=== PATIENT | male | born 1945 | race Caucasian/White ===

== ENCOUNTER 2016-05-05 16:14 | Inpatient (IN) | payer MEDICARE, BC ==
[2016-05-05] MEDS ORDERED: SODIUM CHLORIDE 0.9% 1,000 ML IV STA (16:55)
--- NOTE | 2016-05-05 16:58 | ED ---
Arrhythmia/Palpitations HPI - General Chief Complaint: Arrhythmia/Palpitations Stated Complaint: Bradycardia Time Seen by Provider: 05/05/16 16:45 Source: patient, family, RN notes reviewed Mode of arrival: wheelchair Limitations: no limitations - History of Present Illness Initial Comments: This is a 71-year-old male who was sent in by his physician for evaluation for a low heart rate. Has had this for over a week he did have metoprolol adjusted he still not getting improvement heart rates or runny near 40 per family members. Patient denies any other symptoms however surges fevers chills nausea vomiting sweats lightheadedness or dizziness. Other than the change in the metoprolol no other change in medications. - Related Data Home Medications Medication Instructions Recorded Confirmed Baclofen 10 mg PO HS 04/26/14 05/05/16 Isosorbide Mononitrate ER [Imdur] 30 mg PO DAILY 04/26/14 05/05/16 Montelukast [Singulair] 10 mg PO DAILY 04/26/14 05/05/16 levETIRAcetam [Keppra] 750 mg PO BID 04/26/14 05/05/16 Atorvastatin [Lipitor] 40 mg PO HS 06/14/14 05/05/16 Melatonin 6 mg PO HS 12/12/14 05/05/16 ALPRAZolam [Xanax] 0.25 mg PO HS 11/20/15 05/05/16 Acetaminophen Tab [Tylenol] 325 mg PO Q6HR PRN 11/20/15 05/05/16 HYDROcodone/APAP 10-325MG [[place] 1 - 2 tab PO Q6H PRN 04/18/16 05/05/16 10-325] Lisinopril [Zestril] 20 mg PO DAILY 04/18/16 05/05/16 Multivitamins, Thera [Multivitamin] 1 tab PO DAILY 04/18/16 05/05/16 Omeprazole [PriLOSEC] 20 mg PO DAILY 04/18/16 05/05/16 PARoxetine HCL [Paxil] 40 mg PO DAILY 04/18/16 05/05/16 Warfarin [Coumadin] 7.5 mg PO DAILY 04/18/16 05/05/16 amLODIPine [Norvasc] 5 mg PO DAILY 04/18/16 05/05/16 hydrALAZINE HCL [Apresoline] 50 mg PO TID 04/18/16 05/05/16 Potassium Chloride ER [K-Dur 20] 20 meq PO DAILY 05/05/16 05/05/16 Previous Rx's Medication Instructions Recorded Furosemide [Lasix] 40 mg PO BID tab 12/23/14 Metoprolol Tartrate 12.5 mg PO BID #60 tab 12/23/14 Tamsulosin HCl [Flomax] 0.4 mg PO BID #0 12/24/14 INSULIN LISPRO (humaLOG) [humaLOG 4 unit SQ AC-TID #5 pen 11/26/15 (formulary)] Insulin Glargine [Lantus] 18 unit SQ HS vial 11/26/15 Allergies Allergy/AdvReac Type Severity Reaction Status Date / Time adhesive AdvReac Unknown Verified 05/05/16 16:35 influenza virus vaccine, AdvReac Nausea & Verified 05/05/16 16:35 specific Vomiting & [Influenza Virus Diarrhea Vacc,Specific] Review of Systems ROS Statement: Those systems with pertinent positive or pertinent negative responses have been documented in the HPI. ROS Other: All systems not noted in ROS Statement are negative. Past Medical History Past Medical History: Atrial Fibrillation, Coronary Artery Disease (CAD), Heart Failure, COPD, Diabetes Mellitus, GERD/Reflux, Hyperlipidemia, Hypertension, Myocardial Infarction (non Q-wave), Musculoskeletal Disorder, Osteoarthritis (OA ), Pneumonia, Prostate Disorder, Seizure Disorder, Sleep Apnea/CPAP/BIPAP Additional Past Medical History / Comment(s): Other HX: Recent near respiratory failure, TIA possible CVA pt us unsure, Chronic UTI'S due to VALVE IN BLADDER TOO SMALL, START OF CATARACTS bilaterally,ARTHRITIS, GOUT,DOES'NT USE CPAP AT. HOME,KIDNEY STONE, BULGING DISCS. home o2 3l nc at all times , he has home updrafts, pneumonia 11/2013, non Q wave [place] 11/2013, arthiritis .WT ON 08-16-14 WAS 87.8 KGS -AND ON 09-11-14 WT WAS 65.5 KGS. Last Myocardial Infarction Date:: UNK History of Any Multi-Drug Resistant Organisms: C-DIFF Date of last positivie culture/infection: None MDRO Source:: None Past Surgical History: Bladder Surgery, Coronary Bypass/CABG, Heart Catheterization Additional Past Surgical History / Comment(s): Cardiac cath with PTCA 12/14/13, CABG 5 vessek 01/02/14, BENIGN TUMOR ON SALIVARY GLANDS (RT) REMOVED, HAD A SUPRA PUBIC CATH IN PAST THAT GOT INFECTED ENDED UP AT [facility]. Past Anesthesia/Blood Transfusion Reactions: No Reported Reaction Past Psychological History: Depression Additional Psychological History / Comment(s): Pt lives alone denies outside services.stated left him around mar 2014. He is on home O2 at 3L/NC all of the time. Pt is independent in his ADL's. He uses a cane most of the time. He cooks his. own food. . Pt has had home care in the past but none now. He also has friends that help him and family calls to check on him as well. Twin has been helping him. Smoking Status: Former smoker Past Alcohol Use History: None Reported Additional Past Alcohol Use History / Comment(s): STARTED SMOKING AT AGE 19 QUIT 2012 3PPD FOR 10 YEARS THEN DECREASED TO 2 PPD UNTIL HE QUIT. 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, Past Drug Use History: None Reported - Past Family History Father Family Medical History: Cancer, Dementia, Hyperlipidemia, Hypertension, Myocardial Infarction ([place]) Additional Family Medical History / Comment(s): AT AGE 78- Mother Family Medical History: Coronary Artery Disease (CAD), Dementia, Myocardial Infarction ([place]) Additional Family Medical History / Comment(s): AT AGE 86 Brother(s) Family Medical History: No Reported History Sister(s) Family Medical History: Rheumatoid Arthritis (RA) Son(s) Family Medical History: No Reported History Daughter(s) Family Medical History: No Reported History General Exam - General Exam Comments Initial Comments: This is a well-developed well-nourished awake alert oriented 3 male Limitations: no limitations General appearance: alert, in no apparent distress Head exam: Present: atraumatic, normocephalic, normal inspection Eye exam: Present: normal appearance, PERRL, EOMI. Absent: scleral icterus, conjunctival injection, periorbital swelling ENT exam: Present: mucous membranes dry Neck exam: Present: normal inspection. Absent: tenderness, meningismus, lymphadenopathy Respiratory exam: Present: normal lung sounds bilaterally. Absent: respiratory distress, wheezes, rales, rhonchi, stridor Cardiovascular Exam: Present: bradycardia, irregular rhythm, normal heart sounds. Absent: systolic murmur, diastolic murmur, rubs, gallop, clicks GI/Abdominal exam: Present: soft, normal bowel sounds. Absent: distended, tenderness, guarding, rebound, rigid Extremities exam: Present: normal inspection, full ROM, normal capillary refill. Absent: tenderness, pedal edema, joint swelling, calf tenderness Back exam: Present: normal inspection Neurological exam: Present: alert, oriented X3, CN II-XII intact Psychiatric exam: Present: normal affect, normal mood Skin exam: Present: warm, dry, intact, normal color. Absent: rash Course Vital Signs 05/05/16 05/05/16 05/05/16 16:24 17:20 18:00 Temperature 98.2 F Pulse Rate 40 L 46 L 44 L Pulse Rate [ Left Pulse Oximetery] Respiratory 16 16 16 Rate Blood Pressure 175/80 190/77 208/89 O2 Sat by Pulse 98 97 44 L Oximetry 05/05/16 05/05/16 05/05/16 18:30 19:30 19:57 Temperature Pulse Rate 43 L 52 L Pulse Rate [ 46 L Left Pulse Oximetery] Respiratory 16 16 Rate Blood Pressure 187/88 182/83 O2 Sat by Pulse 97 97 Oximetry EKG Findings - EKG Results: EKG: interpreted by REED (Atrial fibrillation with a rate of 39 uterus of 110 daily since QTC of 506/407 old inferior changes no acute ST-T wave changes.) Medical Decision Making - Medical Decision Making I did discuss findings with patient family and with the admitting physician patient be admitted with cardiology consultation. He is currently hemodynamically stable - Lab Data Result diagrams: 05/05/16 17:20 05/05/16 17:20 Lab Results 05/05/16 05/05/16 05/05/16 Range/Units 17:20 17:20 17:20 WBC 8.5 (3.8-10.6) k/uL RBC 4.65 (4.30-5.90) m/uL Hgb 13.4 (13.0-17.5) gm/dL Hct 41.2 (39.0-53.0) % MCV 88.7 (80.0-100.0) fL MCH 28.8 (25.0-35.0) pg MCHC 32.5 (31.0-37.0) g/dL RDW 13.3 (11.5-15.5) % Plt Count 145 L (150-450) k/uL Neutrophils % 69 % Lymphocytes % 19 % Monocytes % 7 % Eosinophils % 3 % Basophils % 1 % Neutrophils # 5.9 (1.3-7.7) k/uL Lymphocytes # 1.6 (1.0-4.8) k/uL Monocytes # 0.6 (0-1.0) k/uL Eosinophils # 0.3 (0-0.7) k/uL Basophils # 0.1 (0-0.2) k/uL PT (9.0-12.0) sec INR (<1.1) APTT (22.0-30.0) sec Sodium 140 (137-145) mmol/L Potassium 4.3 (3.5-5.1) mmol/L Chloride 101 (98-107) mmol/L Carbon Dioxide 29 (22-30) mmol/L Anion Gap 10 mmol/L BUN 23 H (9-20) mg/dL Creatinine 1.18 (0.66-1.25) mg/dL Est GFR (MDRD) Af Amer >60 (>60 ml/min/1.73 sqM) Est GFR (MDRD) Non-Af >60 (>60 ml/min/1.73 sqM) Glucose 257 H (74-99) mg/dL Calcium 8.9 (8.4-10.2) mg/dL Magnesium 1.7 (1.6-2.3) mg/dL Total Bilirubin 0.6 (0.2-1.3) mg/dL AST 30 (17-59) U/L ALT 53 (21-72) U/L Alkaline Phosphatase 82 (38-126) U/L Total Creatine Kinase 55 (55-170) U/L CK-MB (CK-2) 1.3 (0.0-2.4) ng/mL CK-MB (CK-2) Rel Index 2.4 Troponin I 0.021 (0.000-0.034) ng/mL Total Protein 6.7 (6.3-8.2) g/dL Albumin 3.6 (3.5-5.0) g/dL TSH 1.060 (0.465-4.680) mIU/L 05/05/16 Range/Units 17:20 WBC (3.8-10.6) k/uL RBC (4.30-5.90) m/uL Hgb (13.0-17.5) gm/dL Hct (39.0-53.0) % MCV (80.0-100.0) fL MCH (25.0-35.0) pg MCHC (31.0-37.0) g/dL RDW (11.5-15.5) % Plt Count (150-450) k/uL Neutrophils % % Lymphocytes % % Monocytes % % Eosinophils % % Basophils % % Neutrophils # (1.3-7.7) k/uL Lymphocytes # (1.0-4.8) k/uL Monocytes # (0-1.0) k/uL Eosinophils # (0-0.7) k/uL Basophils # (0-0.2) k/uL PT 36.0 H (9.0-12.0) sec INR 3.7 (<1.1) APTT 31.1 H (22.0-30.0) sec Sodium (137-145) mmol/L Potassium (3.5-5.1) mmol/L Chloride (98-107) mmol/L Carbon Dioxide (22-30) mmol/L Anion Gap mmol/L BUN (9-20) mg/dL Creatinine (0.66-1.25) mg/dL Est GFR (MDRD) Af Amer (>60 ml/min/1.73 sqM) Est GFR (MDRD) Non-Af (>60 ml/min/1.73 sqM) Glucose (74-99) mg/dL Calcium (8.4-10.2) mg/dL Magnesium (1.6-2.3) mg/dL Total Bilirubin (0.2-1.3) mg/dL AST (17-59) U/L ALT (21-72) U/L Alkaline Phosphatase (38-126) U/L Total Creatine Kinase (55-170) U/L CK-MB (CK-2) (0.0-2.4) ng/mL CK-MB (CK-2) Rel Index Troponin I (0.000-0.034) ng/mL Total Protein (6.3-8.2) g/dL Albumin (3.5-5.0) g/dL TSH (0.465-4.680) mIU/L - Radiology Data Radiology results: report reviewed (No acute findings), image reviewed Disposition Clinical Impression: Chronic atrial fibrillation, Bradycardia with 31-40 beats per minute Disposition: ADMITTED IP TO THIS HOSP Condition: Stable
[2016-05-05 17:34] LABS: Basophils # (A) 0.1 k/uL (0-0.2); Basophils % (A) 1 %; CH 29.2; Eosinophils # (A) 0.3 k/uL (0-0.7); Eosinophils % (A) 3 %; HCT 41.2 % (39.0-53.0); HDW 2.49; HGB 13.4 gm/dL (13.0-17.5); Luc # (Auto) 0.14; Luc % (Auto) 2; Lymphocytes # (A) 1.6 k/uL (1.0-4.8); Lymphocytes % (A) 19 %; MCH 28.8 pg (25.0-35.0); MCHC 32.5 g/dL (31.0-37.0); MCV 88.7 fL (80.0-100.0); Mean Platelet Volume 8.7; Monocytes # (A) 0.6 k/uL (0-1.0); Monocytes % (A) 7 %; Neutrophils # (A) 5.9 k/uL (1.3-7.7); Neutrophils % (A) 69 %; RBC 4.65 m/uL (4.30-5.90); RDW 13.3 % (11.5-15.5); WBC 8.5 k/uL (3.8-10.6); WBC (Perox) 8.68
[2016-05-05 17:42] LABS: INR 3.7 (<1.1); Partial Thromboplastin Time 31.1 sec (22.0-30.0)
[2016-05-05 17:43] LABS: ALT 53 U/L (21-72); AST 30 U/L (17-59); Alkaline Phosphatase 82 U/L (38-126); Anion Gap 10 mmol/L; Blood Urea Nitrogen 23 mg/dL (9-20); Calcium 8.9 mg/dL (8.4-10.2); Carbon Dioxide 29 mmol/L (22-30); Chloride 101 mmol/L (98-107); Glucose 257 mg/dL (74-99); Magnesium 1.7 mg/dL (1.6-2.3); Non-African American GFR(MDRD) >60 (>60 ml/min/1.73 sqM); Potassium 4.3 mmol/L (3.5-5.1); Sodium 140 mmol/L (137-145); Total Bilirubin 0.6 mg/dL (0.2-1.3); Total Protein 6.7 g/dL (6.3-8.2)
[2016-05-05 18:06] LABS: Creatine Kinase MB 1.3 ng/mL (0.0-2.4); Troponin I 0.021 ng/mL (0.000-0.034)
--- NOTE | 2016-05-05 18:22 | XR ---
EXAMINATION TYPE: XR chest 2V DATE OF EXAM: 05/05/2016 6:06 PM COMPARISON: Prior chest x-ray 17 April 2016, November, CT chest 13 December 2014 HISTORY: Dysrhythmia, bradycardia TECHNIQUE: Frontal and lateral views of the chest are obtained. FINDINGS: Patient is post median sternotomy. Patient is rotated and there are overlying cardiac lead s. Suspect the heart may be enlarged. Increased AP diameter of the chest suggests underlying COPD. Zavala spect posterior pleural thickening is chronic. No pneumonia, pneumothorax, or pleural effusion. IMPRESSION: Chronic cardiomegaly. Emphysema. There may be some chronic pleural thickening.
[2016-05-05] MEDS ORDERED: NALOXONE 0.4 MG/ML 1 ML VIAL IV PRN (20:33)
[2016-05-05] MEDS ORDERED: ACETAMINOPHEN TAB 325 MG TAB PO PRN (20:37)
[2016-05-05] MEDS ORDERED: HYDROcodone/APAP 10-325MG 1 EACH TAB PO PRN (20:37)
[2016-05-05 22:00] LABS: Glucose,Whole Blood 239 mg/dL (75-99)
[2016-05-05] MEDS: SODIUM CHLORIDE 0.9% 1,000 ML IV SCH (22:47)
[2016-05-05] MEDS: BACLOFEN 10 MG TAB PO SCH (22:48)
[2016-05-05] MEDS: ATORVASTATIN 40 MG TAB PO SCH (22:48)
[2016-05-05] MEDS: INSULIN GLARGINE 100 UNIT/ML 10 ML VIAL SQ SCH (22:48)
[2016-05-05] MEDS: hydrALAZINE HCL 50 MG TAB PO SCH (22:49)
[2016-05-05] MEDS: FUROSEMIDE 40 MG TAB PO SCH (22:49)
[2016-05-05] MEDS: TAMSULOSIN 0.4 MG CAP.ER.24H PO SCH (22:49)
[2016-05-05] MEDS: ALPRAZolam 0.25 MG TAB PO SCH (22:54)
[2016-05-06] MEDS ORDERED: hydrALAZINE HCL 20 MG/ML 1 ML VIAL IVP PRN (03:25)
[2016-05-06 06:06] LABS: Glucose,Whole Blood 119 mg/dL (75-99)
[2016-05-06] MEDS: INSULIN LISPRO (humaLOG) 300 UNIT/3 ML VIAL SQ SCH ×3 (06:09→17:07)
--- NOTE | 2016-05-06 08:37 | P.CRDCN ---
History of Present Illness Consult date: 05/06/16 Requesting physician: Janet Blackman Reason for Consult (text): Bradycardia Chief complaint: Bradycardia History of present illness: This is a 70-year-old gentleman with known history of coronary artery disease and prior bypass surgery, chronic persistent atrial fibrillation, COPD, prior CVA, remote history of smoking, diabetes, hypertension, hyperlipidemia, he states that he came to the hospital because his heart rate was low. Overall the patient states he's been feeling punky and weak at home, he denies any overt dizziness, no syncopal episodes. EKG on arrival here showed atrial fibrillation with a slow ventricular response. Heart rate 39. Chest x-ray reveals chronic cardiomegaly. Emphysema. Lab data hemoglobin 13.4, platelet count 145, INR 3.7, potassium 4.3, BUN 23, creatinine 1.8. A mesial level I.7, troponin 0.021. TSH 1.060. Patient is unable to give a clear detailed history. According to the emergency room notes, patient has been noted to be bradycardic over the past one week, he did have his metoprolol tartrate dose adjusted and in spite of that persisted to have a heart rate in the 30s to 40s. He currently was on metoprolol tartrate 12-1/2 mg one tablet by mouth twice a day. The pressure on admission 175/80, heart rate 40. Blood pressure this morning 194/84 with a heart rate of 34. At the time of my examination this morning, patient states he feels punky, denies any dizziness or lightheadedness , feels tired. Past Medical History Past Medical History: Atrial Fibrillation, Coronary Artery Disease (CAD), Heart Failure, COPD, Diabetes Mellitus, GERD/Reflux, Hyperlipidemia, Hypertension, Myocardial Infarction (non Q-wave), Musculoskeletal Disorder, Osteoarthritis (OA ), Pneumonia, Prostate Disorder, Seizure Disorder, Sleep Apnea/CPAP/BIPAP Additional Past Medical History / Comment(s): Other HX: Recent near respiratory failure, TIA possible CVA pt us unsure, Chronic UTI'S due to VALVE IN BLADDER TOO SMALL, START OF CATARACTS bilaterally,ARTHRITIS, GOUT,DOES'NT USE CPAP AT. HOME,KIDNEY STONE, BULGING DISCS. home o2 3l nc at all times , he has home updrafts, pneumonia 11/2013, non Q wave [place] 11/2013, arthiritis .WT ON 08-16-14 WAS 87.8 KGS -AND ON 09-11-14 WT WAS 65.5 KGS. Last Myocardial Infarction Date:: UNK History of Any Multi-Drug Resistant Organisms: C-DIFF Date of last positivie culture/infection: None MDRO Source:: None Past Surgical History: Bladder Surgery, Coronary Bypass/CABG, Heart Catheterization Additional Past Surgical History / Comment(s): Cardiac cath with PTCA 12/14/13, CABG 5 vessek 01/02/14, BENIGN TUMOR ON SALIVARY GLANDS (RT) REMOVED, HAD A SUPRA PUBIC CATH IN PAST THAT GOT INFECTED ENDED UP AT [facility]. Past Anesthesia/Blood Transfusion Reactions: No Reported Reaction Past Psychological History: Depression Additional Psychological History / Comment(s): Pt lives alone denies outside services.stated left him around mar 2014. He is on home O2 at 3L/NC all of the time. Pt is independent in his ADL's. He uses a cane most of the time. He cooks his. own food. . Pt has had home care in the past but none now. He also has friends that help him and family calls to check on him as well. Twin has been helping him. Smoking Status: Former smoker Past Alcohol Use History: None Reported Additional Past Alcohol Use History / Comment(s): STARTED SMOKING AT AGE 19 QUIT 2012 3PPD FOR 10 YEARS THEN DECREASED TO 2 PPD UNTIL HE QUIT. 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, Past Drug Use History: None Reported - Past Family History Father Family Medical History: Cancer, Dementia, Hyperlipidemia, Hypertension, Myocardial Infarction ([place]) Additional Family Medical History / Comment(s): AT AGE 78- Mother Family Medical History: Coronary Artery Disease (CAD), Dementia, Myocardial Infarction ([place]) Additional Family Medical History / Comment(s): AT AGE 86 Brother(s) Family Medical History: No Reported History Sister(s) Family Medical History: Rheumatoid Arthritis (RA) Son(s) Family Medical History: No Reported History Daughter(s) Family Medical History: No Reported History Medications and Allergies Home Medications Medication Instructions Recorded Confirmed Type Baclofen 10 mg PO HS 04/26/14 05/05/16 History Isosorbide Mononitrate ER [Imdur] 30 mg PO DAILY 04/26/14 05/05/16 History Montelukast [Singulair] 10 mg PO DAILY 04/26/14 05/05/16 History levETIRAcetam [Keppra] 750 mg PO BID 04/26/14 05/05/16 History Atorvastatin [Lipitor] 40 mg PO HS 06/14/14 05/05/16 History Melatonin 6 mg PO HS 12/12/14 05/05/16 History ALPRAZolam [Xanax] 0.25 mg PO HS 11/20/15 05/05/16 History Acetaminophen Tab [Tylenol] 325 mg PO Q6HR PRN 11/20/15 05/05/16 History HYDROcodone/APAP 10-325MG [[place] 1 - 2 tab PO Q6H PRN 04/18/16 05/05/16 History 10-325] Lisinopril [Zestril] 20 mg PO DAILY 04/18/16 05/05/16 History Multivitamins, Thera [Multivitamin] 1 tab PO DAILY 04/18/16 05/05/16 History Omeprazole [PriLOSEC] 20 mg PO DAILY 04/18/16 05/05/16 History PARoxetine HCL [Paxil] 40 mg PO DAILY 04/18/16 05/05/16 History Warfarin [Coumadin] 7.5 mg PO DAILY 04/18/16 05/05/16 History amLODIPine [Norvasc] 5 mg PO DAILY 04/18/16 05/05/16 History hydrALAZINE HCL [Apresoline] 50 mg PO TID 04/18/16 05/05/16 History Potassium Chloride ER [K-Dur 20] 20 meq PO DAILY 05/05/16 05/05/16 History Allergies Allergy/AdvReac Type Severity Reaction Status Date / Time adhesive AdvReac Unknown Verified 05/05/16 16:35 influenza virus vaccine, AdvReac Nausea & Verified 05/05/16 16:35 specific Vomiting & [Influenza Virus Diarrhea Vacc,Specific] Physical Exam Vitals: Vital Signs Temp Pulse Resp BP Pulse Ox 05/06/16 06:05 34 L 194/84 05/06/16 04:53 37 L 191/88 05/06/16 04:45 35 L 216/95 05/06/16 04:40 37 L 201/97 05/06/16 03:42 97.9 F 36 L 16 197/87 99 05/06/16 00:28 187/88 05/05/16 23:42 98.1 F 44 L 16 196/97 97 05/05/16 20:58 97.6 F 46 L 16 190/84 95 Intake and Output 05/05/16 05/06/16 05/06/16 22:59 06:59 14:59 Intake Total 120 640 0 Output Total 1000 400 Balance 120 -360 -400 Intake: IV 640 Sodium Chloride 0.9% 1, 640 000 ml @ 80 mls/hr IV . [id number] [facility]MA ROSA Rx#:[id number] Oral 120 0 Output: Urine 1000 400 Other: Voiding Method Urinal Weight 65.771 kg 63.4 kg PHYSICAL EXAMINATION: HEENT: Head is atraumatic, normocephalic. Pupils equal, round. Neck is supple. There is no elevated jugular venous pressure. HEART EXAMINATION: Heart S1-S2 irregular irregular a systolic murmur is heard. CHEST EXAMINATION: Lungs are clear to auscultation and precussion. No chest wall tenderness is noted on palpation or with deep breathing. ABDOMEN: Soft, nontender. Bowel sounds are heard. No organomegaly noted. EXTREMITIES: 2+ peripheral pulses with no evidence of peripheral edema and no calf tenderness noted. NEUROLOGIC patient is awake, alert and oriented -3. . Results 05/05/16 17:20 05/05/16 17:20 Current Medications Generic Name Dose Route Start Last Admin Trade Name Freq PRN Reason Stop Dose Admin Acetaminophen 325 mg 05/05/16 20:37 05/06/16 00:19 Tylenol Tab PO 325 mg Q6HR PRN Administration Mild Pain or Fever > 100.5 Acetaminophen/Hydrocodone Bitart 1 each 05/05/16 20:37 [place] 10 PO Q6H PRN Pain Alprazolam 0.25 mg 05/05/16 21:00 05/05/16 22:54 Xanax PO 0.25 mg HS ALMA ROSA Administration Amlodipine Besylate 5 mg 05/06/16 09:00 Norvasc PO DAILY ALMA ROSA Atorvastatin Calcium 40 mg 05/05/16 21:00 05/05/16 22:48 Lipitor PO 40 mg HS ALMA ROSA Administration Baclofen 10 mg 05/05/16 21:00 05/05/16 22:48 Lioresal PO 10 mg HS ALMA ROSA Administration Furosemide 40 mg 05/05/16 22:00 05/05/16 22:49 Lasix PO 40 mg 0900,1600 ALMA ROSA Administration Hydralazine HCl 50 mg 05/05/16 22:00 05/05/16 22:49 Apresoline PO 50 mg TID ALMA ROSA Administration Hydralazine HCl 10 mg 05/06/16 03:25 05/06/16 04:36 Apresoline IVP 10 mg Q4HR PRN Administration Blood Pressure - High Sodium Chloride 1,000 mls @ 80 mls/hr 05/05/16 20:45 05/05/16 22:47 Saline 0.9% IV 80 mls/hr .[id number] [facility]MA ROSA Administration Insulin Glargine 18 unit 05/05/16 21:00 05/05/16 22:48 Lantus SQ 18 unit HS [facility]MA ROSA Administration Insulin Human Lispro 4 unit 05/06/16 07:30 05/06/16 06:09 Humalog SQ Not Given AC-TID [facility] Isosorbide Mononitrate 30 mg 05/06/16 09:00 Imdur PO DAILY [facility] Levetiracetam 750 mg 05/05/16 21:00 05/05/16 22:49 Keppra PO 750 mg BID [facility] ROSA Administration Lisinopril 20 mg 05/06/16 09:00 Zestril PO DAILY [facility] Montelukast Sodium 10 mg 05/06/16 09:00 Singulair PO DAILY [facility] Naloxone HCl 0.2 mg 05/05/16 20:33 Narcan IV Q2M PRN Opioid Reversal Pantoprazole Sodium 40 mg 05/06/16 09:00 Protonix PO DAILY [facility] Paroxetine HCl 40 mg 05/06/16 09:00 Paxil PO DAILY [facility] Tamsulosin HCl 0.4 mg 05/05/16 21:00 05/05/16 22:49 Flomax PO 0.4 mg BID [facility] Administration Intake and Output 05/05/16 05/06/16 05/06/16 22:59 06:59 14:59 Intake Total 120 640 0 Output Total 1000 400 Balance 120 -360 -400 Intake: IV 640 Sodium Chloride 0.9% 1, 640 000 ml @ 80 mls/hr IV . [id number] [facility] Rx#:[id number] Oral 120 0 Output: Urine 1000 400 Other: Voiding Method Urinal Weight 65.771 kg 63.4 kg EKG Interpretations (text) EKG shows atrial fibrillation with a slow ventricular response. Assessment and Plan Plan: Assessment and plan #1 bradycardia with symptoms of fatigue and weakness. TSH normal. #2 chronic persistent atrial fibrillation, on Coumadin for anticoagulation, INR 3.7. #3 known history of coronary artery disease with prior bypass surgery. #4 hypertension # 5 diabetes #6 prior CVA #7 COPD #8 history of nicotine dependence #9 diabetes Plan We will obtain an echocardiogram with Doppler study. We will also hold the patient's metoprolol tartrate. It is been explained to the patient that he may require implantation of a permanent pacemaker at some point. We will await family members arrivals to speak with him further. We will hold his Coumadin dose today. Increase Norvasc to 10 mg daily. Further recommendations to follow. DNP note has been reviewed, I agree with a documented findings and plan of care. Patient was seen and examined.
[2016-05-06] MEDS ORDERED: amLODIPine 5 MG TAB PO SCH (09:00)
[2016-05-06] MEDS: hydrALAZINE HCL 50 MG TAB PO SCH ×3 (09:20→21:06)
[2016-05-06] MEDS: amLODIPine 10 MG TAB PO SCH (09:20)
[2016-05-06] MEDS: MONTELUKAST 10 MG TAB PO SCH (09:21)
[2016-05-06] MEDS: PANTOPRAZOLE 40 MG TABLET PO SCH (09:21)
[2016-05-06] MEDS: ISOSORBIDE MONONITRATE ER 30 MG TAB.ER.24H PO SCH (09:21)
[2016-05-06] MEDS: LISINOPRIL 20 MG TAB PO SCH (09:21)
[2016-05-06] MEDS: FUROSEMIDE 40 MG TAB PO SCH ×2 (09:21→15:26)
[2016-05-06] MEDS: TAMSULOSIN 0.4 MG CAP.ER.24H PO SCH ×2 (09:22→21:06)
[2016-05-06] MEDS: PARoxetine 20 MG TAB PO SCH (09:22)
[2016-05-06 10:08] LABS: INR 2.7 (<1.1); Prothrombin Time 26.4 sec (9.0-12.0)
[2016-05-06] MEDS: SODIUM CHLORIDE 0.9% 1,000 ML IV SCH ×2 (10:43→21:07)
[2016-05-06 11:54] LABS: Glucose,Whole Blood 225 mg/dL (75-99)
--- NOTE | 2016-05-06 12:11 | ECHOF ---
Referral Reason:bradycardia MEASUREMENTS -------- HEIGHT: 175.3 cm WEIGHT: 63.0 kg BP: 194/84 RVIDd: 3.8 cm (< 3.3) IVSd: 1.1 cm (0.6 - 1.1) LVIDd: 4.7 cm (3.9 - 5.3) LVPWd: 1.1 cm (0.6 - 1.1) IVSs: 1.5 cm LVIDs: 3.2 cm LVPWs: 1.6 cm LA Diam: 5.8 cm (2.7 - 3.8) LAESV Index (A-L): 71.87 ml/m Ao Diam: 3.8 cm (2.0 - 3.7) AV Cusp: 2.1 cm (1.5 - 2.6) LA Diam: 4.9 cm (2.7 - 3.8) MV EXCURSION: 20.195 mm (> 18.000) MV EF SLOPE: 96 mm/s (70 - 150) EPSS: 0.5 cm MV E Blayne: 0.83 m/s MV DecT: 172 ms MV A Blayne: 0.28 m/s MV E/A Ratio: 2.91 RAP: 5.00 mmHg RVSP: 16.85 mmHg FINDINGS -------- Undetermined rhythm. This was a technically adequate study. There is mild concentric left ventricular hypertrophy. Overall left ventricular systolic function is low-normal with, an EF between 50 - 55 %. Paradoxical motion of the right ventricular septum is consistent with post operative status. There is mild to moderate aortic valve sclerosis. There is no evidence of aortic regurgitation. The mitral valve leaflets are mildly thickened. Mild mitral regurgitation is present. Mild tricuspid regurgitation present. There is no evidence of pulmonary hypertension. The right ventricular systolic pressure, as measured by Doppler, is 16.85mmHg. There is no pulmonic regurgitation present. The aortic root size is normal. There is no pericardial effusion. CONCLUSIONS -------- 1. Undetermined rhythm. 2. There is mild concentric left ventricular hypertrophy. 3. Overall left ventricular systolic function is low-normal with, an EF between 50 - 55 %. 4. There is mild to moderate aortic valve sclerosis. 5. The mitral valve leaflets are mildly thickened. 6. Mild mitral regurgitation is present. 7. Mild tricuspid regurgitation present. 8. There is no evidence of pulmonary hypertension. 9. The right ventricular systolic pressure, as measured by Doppler, is 16.85mmHg. BUILDING CONTRACTOR: Ramila Calderón RDCS
--- NOTE | 2016-05-06 15:29 | P.HPIM ---
History of Present Illness H&P Date: 05/06/16 Chief Complaint: Bradycardia This is a 70-year-old male one of Dr. Lucas Gallo's patient with past medical history of hypertension, hyperlipidemia, diabetes, COPD, ,CHF , alcoholism and worsening heart failure who had open heart surgery with the CABG 2015 ended up having multiple complications and the multiple rehospitalization for worsening shortness of breath, A. fib and other complication. Patient states that he was having low heart rates at home and his family contacted Dr. Dockery. His metoprolol was decreased without any improvement and he was brought into [facility] emergency center for evaluation. EKG was atrial fibrillation at rate of 39. Beta kojo was discontinued completely and patient admitted to the selective care unit and consult obtained with cardiology. Patient is monitored for possible pacemaker insertion. INR 3.7 and Coumadin placed on hold. BUN 23 with creatinine of 1.8. Potassium 4.3 and magnesium level I.7. Patient has some generalized weakness and lightheadedness. He denies any chest pain. . Review of Systems All systems: negative Constitutional: Reports fatigue, Reports lethargy, Reports weakness, Denies chills, Denies fever Eyes: denies blurred vision, denies pain Ears, nose, mouth and throat: Denies headache, Denies sore throat Cardiovascular: Reports lightheadedness, Denies chest pain, Denies palpitations , Denies shortness of breath, Denies syncope Respiratory: Denies cough Gastrointestinal: Denies abdominal pain, Denies diarrhea, Denies nausea, Denies vomiting Musculoskeletal: Denies myalgias Integumentary: Denies pruritus, Denies rash Neurological: Denies numbness, Denies weakness Psychiatric: Denies anxiety, Denies depression Endocrine: Denies fatigue, Denies weight change Past Medical History Past Medical History: Atrial Fibrillation, Coronary Artery Disease (CAD), Heart Failure, COPD, Diabetes Mellitus, GERD/Reflux, Hyperlipidemia, Hypertension, Myocardial Infarction (non Q-wave), Musculoskeletal Disorder, Osteoarthritis (OA ), Pneumonia, Prostate Disorder, Seizure Disorder, Sleep Apnea/CPAP/BIPAP Additional Past Medical History / Comment(s): Other HX: Recent near respiratory failure, TIA possible CVA pt us unsure, Chronic UTI'S due to VALVE IN BLADDER TOO SMALL, START OF CATARACTS bilaterally,ARTHRITIS, GOUT,DOES'NT USE CPAP AT. HOME,KIDNEY STONE, BULGING DISCS. home o2 3l nc at all times , he has home updrafts, pneumonia 11/2013, non Q wave NM 11/2013, arthiritis .WT ON 08-16-14 WAS 87.8 KGS -AND ON 09-11-14 WT WAS 65.5 KGS. Last Myocardial Infarction Date:: UNK History of Any Multi-Drug Resistant Organisms: C-DIFF Date of last positivie culture/infection: None MDRO Source:: None Past Surgical History: Bladder Surgery, Coronary Bypass/CABG, Heart Catheterization Additional Past Surgical History / Comment(s): Cardiac cath with PTCA 12/14/13, CABG 5 vessek 01/02/14, BENIGN TUMOR ON SALIVARY GLANDS (RT) REMOVED, HAD A SUPRA PUBIC CATH IN PAST THAT GOT INFECTED ENDED UP AT [facility]. Past Anesthesia/Blood Transfusion Reactions: No Reported Reaction Past Psychological History: Depression Additional Psychological History / Comment(s): Pt lives alone denies outside services.stated left him around mar 2014. He is on home O2 at 3L/NC all of the time. Pt is independent in his ADL's. He uses a cane most of the time. He cooks his. own food. . Pt has had home care in the past but none now. He also has friends that help him and family calls to check on him as well. [facility] has been helping him. Smoking Status: Former smoker Past Alcohol Use History: None Reported Additional Past Alcohol Use History / Comment(s): STARTED SMOKING AT AGE 19 QUIT 2012 3PPD FOR 10 YEARS THEN DECREASED TO 2 PPD UNTIL HE QUIT. 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, Past Drug Use History: None Reported - Past Family History Father Family Medical History: Cancer, Dementia, Hyperlipidemia, Hypertension, Myocardial Infarction (NM) Additional Family Medical History / Comment(s): AT AGE 78- Mother Family Medical History: Coronary Artery Disease (CAD), Dementia, Myocardial Infarction (NM) Additional Family Medical History / Comment(s): AT AGE 86 Brother(s) Family Medical History: No Reported History Sister(s) Family Medical History: Rheumatoid Arthritis (RA) Son(s) Family Medical History: No Reported History Daughter(s) Family Medical History: No Reported History Medications and Allergies Home Medications Medication Instructions Recorded Confirmed Type Baclofen 10 mg PO HS 04/26/14 05/05/16 History Isosorbide Mononitrate ER [Imdur] 30 mg PO DAILY 04/26/14 05/05/16 History Montelukast [Singulair] 10 mg PO DAILY 04/26/14 05/05/16 History levETIRAcetam [Keppra] 750 mg PO BID 04/26/14 05/05/16 History Atorvastatin [Lipitor] 40 mg PO HS 06/14/14 05/05/16 History Melatonin 6 mg PO HS 12/12/14 05/05/16 History ALPRAZolam [Xanax] 0.25 mg PO HS 11/20/15 05/05/16 History Acetaminophen Tab [Tylenol] 325 mg PO Q6HR PRN 11/20/15 05/05/16 History HYDROcodone/APAP 10-325MG [[place] 1 - 2 tab PO Q6H PRN 04/18/16 05/05/16 History 10-325] Lisinopril [Zestril] 20 mg PO DAILY 04/18/16 05/05/16 History Multivitamins, Thera [Multivitamin] 1 tab PO DAILY 04/18/16 05/05/16 History Omeprazole [PriLOSEC] 20 mg PO DAILY 04/18/16 05/05/16 History PARoxetine HCL [Paxil] 40 mg PO DAILY 04/18/16 05/05/16 History Warfarin [Coumadin] 7.5 mg PO DAILY 04/18/16 05/05/16 History amLODIPine [Norvasc] 5 mg PO DAILY 04/18/16 05/05/16 History hydrALAZINE HCL [Apresoline] 50 mg PO TID 04/18/16 05/05/16 History Potassium Chloride ER [K-Dur 20] 20 meq PO DAILY 05/05/16 05/05/16 History Allergies Allergy/AdvReac Type Severity Reaction Status Date / Time adhesive AdvReac Unknown Verified 05/05/16 16:35 influenza virus vaccine, AdvReac Nausea & Verified 05/05/16 16:35 specific Vomiting & [Influenza Virus Diarrhea Vacc,Specific] Physical Exam Vitals: Vital Signs Temp Pulse Resp BP Pulse Ox 05/06/16 08:00 97.6 F 44 L 183/88 97 05/06/16 06:05 34 L 194/84 05/06/16 04:53 37 L 191/88 05/06/16 04:45 35 L 216/95 05/06/16 04:40 37 L 201/97 05/06/16 03:42 97.9 F 36 L 16 197/87 99 05/06/16 00:28 187/88 05/05/16 23:42 98.1 F 44 L 16 196/97 97 05/05/16 20:58 97.6 F 46 L 16 190/84 95 Intake and Output 05/05/16 05/06/16 05/06/16 22:59 06:59 14:59 Intake Total 120 640 0 Output Total 1000 400 Balance 120 -360 -400 Intake: IV 640 Sodium Chloride 0.9% 1, 640 000 ml @ 80 mls/hr IV . [id number] [facility] Rx#:[id number] Oral 120 0 Output: Urine 1000 400 Other: Voiding Method Urinal Weight 65.771 kg 63.4 kg General appearance: mild distress, thin - EENT Eyes: Reports anicteric sclerae, Reports disc margins sharp, Reports PERRLA, Reports normal apperance, Denies fundus normal, Denies ptosis, Denies scleral icterus ENT: Reports hard of hearing, Reports NA/AT, Reports normal oropharynx, Denies thrush, Denies tonsillar exudates, Denies tonsillar swelling Ears: bilateral: normal - Neck Neck: Reports normal ROM, Denies lymphadenopathy, Denies rigidity, Denies stridor, Denies thyromegaly Carotids: bilateral: upstroke delayed Thyroid: bilateral: normal size - Respiratory Respiratory: bilateral: diminished, negative: dullness, rales, rhonchi, wheezing , prolonged expiration, prolonged inspiration - Cardiovascular Rhythm: regularly irregular, bradycardic Heart sounds: normal: S1, S2 Abnormal Heart Sounds: Reports systolic murmur - Gastrointestinal General gastrointestinal: Reports normal bowel sounds, Reports soft, Reports tenderness, Denies umbilical hernia, Denies ventral hernia - Integumentary Integumentary: Reports normal, Reports normal turgor - Neurologic Neurologic: CNII-XII intact, focal deficits (Left peripheral seventh nerve palsy , 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) - Musculoskeletal Musculoskeletal: Reports generalized weakness, Reports strength equal bilaterally - Psychiatric Psychiatric: Reports A&O x's 3, Denies appropriate affect, Denies intact judgment & insight Results CBC & Chem 7: 05/05/16 17:20 05/05/16 17:20 Labs: Abnormal Lab Results - Last 24 Hours (Table) 05/05/16 05/06/16 Range/Units 21:59 06:05 POC Glucose (mg/dL) 239 H 119 H (75-99) mg/dL Thrombosis Risk Factor Assmnt - DVT/VTE Prophylaxis DVT/VTE Prophylaxis: Pharmacologic Prophylaxis ordered - Choose All That Apply Any of the Below Risk Factors Present?: Yes Each Risk Factor Represents 2 Points: Age 61-74 years Thrombosis Risk Factor Assessment Total Risk Factor Score: 2 Thrombosis Risk Factor Assessment Level: Low Risk Assessment and Plan Plan: 1. Bradycardia. Beta kojo has been discontinued. Cardiology is following. Patient may require pacemaker 2. History of Armas's palsy, stable 3. Arrhythmia history with prior Nonsustained ventricular tachycardia on 2015, echocardiogram October 2015 showed atrial fibrillation with small pericardial effusion ejection fraction 45-50% inferolateral hypokinesis with palpation of LA size over 40. 4. CAD post CABG. Continue Lipitor 40 mg daily. 5. Diabetes mellitus type II: Continue Lantus 18 units at bedtime, Humalog 4 units 3 times daily scheduled and Humalog scale before meals and at bedtime. 6. Hypertension and hypertensive cardiovascular disease. Metoprolol 12.5 mg orally twice every day discontinued. Continue hydralazine 50 mg orally 3 times every day, lisinopril 20 mg orally once every day, hydralazine 10 mg IV push every 4 hours as needed. 7. Hyperlipidemia: On Lipitor 40 mg orally once every day. 8. Chronic A. fib. Patient has been on Coumadin 7.5 mg daily. Currently on hold with elevated INR. 9. Chronic systolic heart failure. Continue Imdur 30 mg orally once every day , hydralazine 50 mg orally 3 times every day, lisinopril 20 mg orally once every day, Lasix 40 mg orally teice every day, and potassium supplement. 10. Depression, recurrent: Continue Paxil. 11. Seizure: Has been on Keppra 750 g twice a day with no new seizure activity. 12. BPH: Continue patient on Flomax 0.4 mg daily. 13. GERD: Will add Protonix 40 mg daily. 14. Admit to inpatient. Estimate a length of stay 2 midnights. 15. Patient is full code. Discharge plan: Return home most likely with [facility] Impression and plan of care have been directed as dictated by the signing physician. Carly Greene nurse practitioner acting as scribe for signing physician. Cc Dr. Lucas Gallo Time with Patient: Greater than 30
[2016-05-06 17:01] LABS: Glucose,Whole Blood 140 mg/dL (75-99)
[2016-05-06 20:19] VITALS: RESP 16
[2016-05-06 20:29] LABS: Glucose,Whole Blood 165 mg/dL (75-99)
[2016-05-06] MEDS ORDERED: MELATONIN 3 MG TABLET PO SCH (21:00)
[2016-05-06] MEDS: ALPRAZolam 0.25 MG TAB PO SCH (21:05)
[2016-05-06] MEDS: ATORVASTATIN 40 MG TAB PO SCH (21:05)
[2016-05-06] MEDS: BACLOFEN 10 MG TAB PO SCH (21:05)
[2016-05-06] MEDS: INSULIN GLARGINE 100 UNIT/ML 10 ML VIAL SQ SCH (21:05)
[2016-05-07 05:54] LABS: CHCM 32.8; HDW 2.46; HGB 11.7 gm/dL (13.0-17.5); MCHC 31.6 g/dL (31.0-37.0); MCV 88.8 fL (80.0-100.0); Mean Platelet Volume 8.7; RBC 4.16 m/uL (4.30-5.90); RDW 13.3 % (11.5-15.5); WBC 7.7 k/uL (3.8-10.6)
[2016-05-07 06:04] LABS: Anion Gap 8 mmol/L; Blood Urea Nitrogen 24 mg/dL (9-20); Calcium 8.3 mg/dL (8.4-10.2); Carbon Dioxide 26 mmol/L (22-30); Chloride 106 mmol/L (98-107); Glucose 154 mg/dL (74-99); Non-African American GFR(MDRD) 60 (>60 ml/min/1.73 sqM); Potassium 3.9 mmol/L (3.5-5.1); Sodium 140 mmol/L (137-145)
[2016-05-07 06:15] LABS: INR 1.7 (<1.1); Prothrombin Time 16.5 sec (9.0-12.0)
[2016-05-07 06:19] LABS: Glucose,Whole Blood 155 mg/dL (75-99)
[2016-05-07] MEDS: INSULIN LISPRO (humaLOG) 300 UNIT/3 ML VIAL SQ SCH ×2 (07:05→11:56)
[2016-05-07] MEDS: amLODIPine 10 MG TAB PO SCH (08:33)
[2016-05-07] MEDS: hydrALAZINE HCL 50 MG TAB PO SCH (08:33)
[2016-05-07] MEDS: PARoxetine 20 MG TAB PO SCH (08:33)
[2016-05-07] MEDS: TAMSULOSIN 0.4 MG CAP.ER.24H PO SCH (08:33)
[2016-05-07] MEDS: FUROSEMIDE 40 MG TAB PO SCH (08:33)
[2016-05-07] MEDS: PANTOPRAZOLE 40 MG TABLET PO SCH (08:34)
[2016-05-07] MEDS: MONTELUKAST 10 MG TAB PO SCH (08:34)
[2016-05-07] MEDS: LISINOPRIL 20 MG TAB PO SCH (08:34)
[2016-05-07] MEDS: ISOSORBIDE MONONITRATE ER 30 MG TAB.ER.24H PO SCH (08:34)
[2016-05-07] MEDS: SODIUM CHLORIDE 0.9% 1,000 ML IV SCH (08:35)
[2016-05-07 08:40] VITALS: TEMP 96.8
[2016-05-07] MEDS ORDERED: MULTIVITAMINS, THERA 1 EACH TAB PO SCH (09:00)
[2016-05-07] MEDS ORDERED: POTASSIUM CHLORIDE ER 20 MEQ TAB.ER PO SCH (09:00)
--- NOTE | 2016-05-07 11:01 | P.PN ---
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 Upon presentation to the hospital he was feeling weak. The heart rate has been in the 40s. He was receiving metoprolol which was held with improvement in the heart rate to the 50s. He underwent an echocardiogram which showed normal LV function without any significant valvular abnormalities. On follow-up with him today, the patient seems to be feeling good. He denies having any chest pain or chest discomfort or difficulty in breathing. From the cardiac standpoint, he can be discharged home. Objective - Vital Signs Vital signs: Vital Signs Temp 96.8 F L 05/07/16 08:00 Pulse 53 L 05/07/16 08:00 Resp 16 05/07/16 03:02 BP 170/79 05/07/16 08:00 Pulse Ox 100 05/07/16 08:00 Intake & Output 05/06/16 05/07/16 05/07/16 18:59 06:59 18:59 Intake Total 320 2600 180 Output Total 800 500 350 Balance -480 2100 -170 Weight 65 kg Intake: IV 1280 Sodium Chloride 0.9% 1, 1280 000 ml @ 80 mls/hr IV . [id number] [facility] Rx#:[id number] Oral 320 1320 180 Output: Urine 800 500 350 Other: Voiding Method Urinal Urinal # Voids 1 # Bowel Movements 1 - Constitutional General appearance: Present: no acute distress - Respiratory Respiratory: bilateral: CTA - Cardiovascular Rhythm: irregularly irregular - Labs CBC & Chem 7: 05/07/16 05:15 05/07/16 05:15 Labs: Abnormal Lab Results - Last 24 Hours (Table) 05/06/16 05/06/16 05/06/16 Range/Units 11:34 16:43 20:28 RBC (4.30-5.90) m/uL Hgb (13.0-17.5) gm/dL Hct (39.0-53.0) % Plt Count (150-450) k/uL PT (9.0-12.0) sec BUN (9-20) mg/dL Glucose (74-99) mg/dL POC Glucose (mg/dL) 225 H 140 H 165 H (75-99) mg/dL Calcium (8.4-10.2) mg/dL 05/07/16 05/07/16 05/07/16 Range/Units 05:15 05:15 05:15 RBC 4.16 L (4.30-5.90) m/uL Hgb 11.7 L (13.0-17.5) gm/dL Hct 37.0 L (39.0-53.0) % Plt Count 121 L (150-450) k/uL PT 16.5 H (9.0-12.0) sec BUN 24 H (9-20) mg/dL Glucose 154 H (74-99) mg/dL POC Glucose (mg/dL) (75-99) mg/dL Calcium 8.3 L (8.4-10.2) mg/dL 05/07/16 Range/Units 06:18 RBC (4.30-5.90) m/uL Hgb (13.0-17.5) gm/dL Hct (39.0-53.0) % Plt Count (150-450) k/uL PT (9.0-12.0) sec BUN (9-20) mg/dL Glucose (74-99) mg/dL POC Glucose (mg/dL) 155 H (75-99) mg/dL Calcium (8.4-10.2) mg/dL Assessment and Plan Plan: Assessment #1 symptomatic bradycardia #2 CAD with prior CABG #3 chronic nature fibrillation #4 COPD Plan #1 the metoprolol was hold #2 from the cardiac standpoint, patient can be discharged home
[2016-05-07 11:47] LABS: Glucose,Whole Blood 113 mg/dL (75-99)
[2016-05-07 12:12] VITALS: BP 131/63; PULSE 63
[2016-05-07 13:41] VITALS: BMI 21.1
--- NOTE | 2016-05-14 15:47 | P.DS ---
Providers Date of admission: 05/05/16 20:33 Expected date of discharge: 05/07/16 Attending physician: Janet Blackman Primary care physician: Lucas Gallo [facility] Course: This is a 70-year-old male one of Dr. Lucas Gallo's patient with past medical history of hypertension, hyperlipidemia, diabetes, COPD, ,CHF , alcoholism and worsening heart failure who had open heart surgery with the CABG 2015 ended up having multiple complications and the multiple rehospitalization for worsening shortness of breath, A. fib and other complication. Patient states that he was having low heart rates at home and his family contacted Dr. Dockery. His metoprolol was decreased without any improvement and he was brought into [facility] emergency center for evaluation. EKG was atrial fibrillation at rate of 39. Beta kojo was discontinued completely and patient admitted to the selective care unit and consult obtained with cardiology. Patient is monitored for possible pacemaker insertion. INR 3.7 and Coumadin placed on hold. BUN 23 with creatinine of 1.8. Potassium 4.3 and magnesium level I.7. Patient has some generalized weakness and lightheadedness. He denies any chest pain. 05/07: Patient has been cleared for discharge by cardiology. Patient is to remain off beta kojo. Heart rate is running in the 50s and 60s. Patient denies any lightheadedness or dizziness. Patient will be discharged home today in stable condition. Discharge diagnoses: 1. Bradycardia. 2. History of Armas's palsy, stable 3. Arrhythmia history with prior Nonsustained ventricular tachycardia on 2015 4. CAD post CABG. 5. Diabetes mellitus type II 6. Hypertension and hypertensive cardiovascular disease. 7. Hyperlipidemia: 8. Chronic A. fib. 9. Chronic systolic heart failure. 10. Depression, recurrent 11. Seizure 12. BPH 13. GERD Discharge plan: Return home most likely with [facility] Impression and plan of care have been directed as dictated by the signing physician. Carly Greene nurse practitioner acting as scribe for signing physician. Cc Dr. Lucas Gallo Patient Condition at Discharge: Stable Plan - Discharge Summary New Discharge Prescriptions: amLODIPine [Norvasc] 10 mg PO DAILY #30 tab Discharge Medication List Baclofen 10 mg PO HS 04/26/14 [History] Isosorbide Mononitrate ER [Imdur] 30 mg PO DAILY 04/26/14 [History] Montelukast [Singulair] 10 mg PO DAILY 04/26/14 [History] levETIRAcetam [Keppra] 750 mg PO BID 04/26/14 [History] Atorvastatin [Lipitor] 40 mg PO HS 06/14/14 [History] Melatonin 6 mg PO HS 12/12/14 [History] Furosemide [Lasix] 40 mg PO BID tab 12/23/14 [Rx] Tamsulosin HCl [Flomax] 0.4 mg PO BID #0 12/24/14 [Rx] ALPRAZolam [Xanax] 0.25 mg PO HS 11/20/15 [History] Acetaminophen Tab [Tylenol] 325 mg PO Q6HR PRN 11/20/15 [History] INSULIN LISPRO (humaLOG) [humaLOG (formulary)] 4 unit SQ AC-TID #5 pen 11/26/15 [Rx] Insulin Glargine [Lantus] 18 unit SQ HS vial 11/26/15 [Rx] HYDROcodone/APAP 10-325MG [[place] 10-325] 1 - 2 tab PO Q6H PRN 04/18/16 [History] Lisinopril [Zestril] 20 mg PO DAILY 04/18/16 [History] Multivitamins, Thera [Multivitamin] 1 tab PO DAILY 04/18/16 [History] Omeprazole [PriLOSEC] 20 mg PO DAILY 04/18/16 [History] PARoxetine HCL [Paxil] 40 mg PO DAILY 04/18/16 [History] Warfarin [Coumadin] 7.5 mg PO DAILY 04/18/16 [History] hydrALAZINE HCL [Apresoline] 50 mg PO TID 04/18/16 [History] Potassium Chloride ER [K-Dur 20] 20 meq PO DAILY 05/05/16 [History] amLODIPine [Norvasc] 10 mg PO DAILY #30 tab 05/07/16 [Rx] Follow up Appointment(s)/Referral(s): Adilson Underwood MD [STAFF PHYSICIAN] - 05/13/16 3:45 pm Lucas Gallo MD [Primary Care Provider] - 05/11/16 1:30 pm ([facility]# ) Patient Instructions/Handouts: Atrial Fibrillation (DC), Bradycardia (DC) Discharge Disposition: HOME WITH HOME HEALTH SERVICES
== END 2016-05-07 14:50 | disposition home health service (06) | DRG 309 ==
LOC: EC 16:14 → 6SEL 20:33
PROVIDERS: ADMIT Internal Medicine; ATTEND Internal Medicine
DX: R00.1 Bradycardia, unspecified (principal); I50.22 Chronic systolic (congestive) heart failure; I11.0 Hypertensive heart disease with heart failure; Z99.81 Dependence on supplemental oxygen; F33.9 Major depressive disorder, recurrent, unspecified; T44.7X5A Adverse effect of beta-adrenoreceptor antagonists, initial encounter; I48.1 Persistent atrial fibrillation; G40.909 Epilepsy, unspecified, not intractable, without status epilepticus; I48.2 Chronic atrial fibrillation; J44.9 Chronic obstructive pulmonary disease, unspecified; E11.9 Type 2 diabetes mellitus without complications; I25.2 Old myocardial infarction; E78.5 Hyperlipidemia, unspecified; G47.30 Sleep apnea, unspecified; I25.10 Atherosclerotic heart disease of native coronary artery without angina pectoris; K21.9 Gastro-esophageal reflux disease without esophagitis; M10.9 Gout, unspecified; R53.1 Weakness; F10.20 Alcohol dependence, uncomplicated; H26.9 Unspecified cataract; G51.0 Bell's palsy; H91.90 Unspecified hearing loss, unspecified ear; N40.0 Benign prostatic hyperplasia without lower urinary tract symptoms; M19.90 Unspecified osteoarthritis, unspecified site; Z87.891 Personal history of nicotine dependence; Z95.1 Presence of aortocoronary bypass graft; Z87.442 Personal history of urinary calculi; Z79.4 Long term (current) use of insulin; Z79.01 Long term (current) use of anticoagulants; Z82.49 Family history of ischemic heart disease and other diseases of the circulatory system; Z86.73 Personal history of transient ischemic attack (TIA), and cerebral infarction without residual deficits; Z86.19 Personal history of other infectious and parasitic diseases; Z87.19 Personal history of other diseases of the digestive system; Z87.440 Personal history of urinary (tract) infections; Z87.01 Personal history of pneumonia (recurrent); Z88.7 Allergy status to serum and vaccine; Z91.048 Other nonmedicinal substance allergy status; Z79.891 Long term (current) use of opiate analgesic; Z79.899 Other long term (current) drug therapy; Z98.61 Coronary angioplasty status; Z80.9 Family history of malignant neoplasm, unspecified
CPT/HCPCS: 36415; 71020; 80048; 80053; 82550; 82553; 83036; 83735; 84443; 84484; 85025; 85027; 85610; 85730; 93005; 93306; 96360; 96361; 99285

== ENCOUNTER 2016-06-15 16:54 | Observation (INO) | payer MEDICARE, BC ==
[2016-06-15] MEDS ORDERED: NITROGLYCERIN OINT 1 INCH/GM PACKET TOPICAL STA (17:12)
--- NOTE | 2016-06-15 17:16 | ED ---
General Adult HPI - General Chief complaint: Chest Pain Stated complaint: Chest Pain Time Seen by Provider: 06/15/16 17:00 Source: EMS, RN notes reviewed Mode of arrival: EMS Limitations: no limitations - History of Present Illness Initial comments: This is a 70-year-old male who presents emergency Department with chest pain since this morning. Patient states she woke up with the pain is on the left side of his chest. Patient states he has a history of heart attack. Patient states he is 48 years of smoking as well but he has quit he won't tell me what. Patient states the pain does not radiate anywhere. Patient states is no difficulty breathing or shortness of breath. Patient states there is no diaphoresis. Patient states he got in the ambulance and they gave him nitroglycerin took the pain completely went is been gone ever since. Patient denies a fever chills or cough. Patient denies any headache patient denies numbness weakness. - Related Data Home Medications Medication Instructions Recorded Confirmed Baclofen 10 mg PO HS 04/26/14 06/15/16 Isosorbide Mononitrate ER [Imdur] 30 mg PO DAILY 04/26/14 06/15/16 levETIRAcetam [Keppra] 750 mg PO BID 04/26/14 06/15/16 Atorvastatin [Lipitor] 40 mg PO HS 06/14/14 06/15/16 Melatonin 6 mg PO HS 12/12/14 06/15/16 ALPRAZolam [Xanax] 0.25 mg PO HS 11/20/15 06/15/16 HYDROcodone/APAP 10-325MG [[place] 1 - 2 tab PO Q6H PRN 04/18/16 06/15/16 10-325] Lisinopril [Zestril] 20 mg PO DAILY 04/18/16 06/15/16 Omeprazole [PriLOSEC] 20 mg PO DAILY 04/18/16 06/15/16 PARoxetine HCL [Paxil] 40 mg PO DAILY 04/18/16 06/15/16 Warfarin [Coumadin] 7.5 mg PO DAILY 04/18/16 06/15/16 hydrALAZINE HCL [Apresoline] 150 mg PO BID 04/18/16 06/15/16 Potassium Chloride ER [K-Dur 20] 20 meq PO DAILY 05/05/16 06/15/16 Ferrous Sulfate [Feosol] 325 mg PO BID 06/15/16 06/15/16 Ibuprofen [Motrin] 800 mg PO Q8H PRN 06/15/16 06/15/16 Previous Rx's Medication Instructions Recorded Furosemide [Lasix] 40 mg PO BID tab 12/23/14 Tamsulosin HCl [Flomax] 0.4 mg PO BID #0 12/24/14 INSULIN LISPRO (humaLOG) [humaLOG 4 unit SQ AC-TID #5 pen 11/26/15 (formulary)] Insulin Glargine [Lantus] 18 unit SQ HS vial 11/26/15 amLODIPine [Norvasc] 10 mg PO DAILY #30 tab 05/07/16 Allergies Allergy/AdvReac Type Severity Reaction Status Date / Time adhesive AdvReac Unknown Verified 06/15/16 17:40 influenza virus vaccine, AdvReac Nausea & Verified 06/15/16 17:40 specific Vomiting & [Influenza Virus Diarrhea Vacc,Specific] Review of Systems ROS Statement: Those systems with pertinent positive or pertinent negative responses have been documented in the HPI. ROS Other: All systems not noted in ROS Statement are negative. Past Medical History Past Medical History: Atrial Fibrillation, Coronary Artery Disease (CAD), Heart Failure, COPD, Diabetes Mellitus, GERD/Reflux, Hyperlipidemia, Hypertension, Myocardial Infarction (non Q-wave), Musculoskeletal Disorder, Osteoarthritis (OA ), Pneumonia, Prostate Disorder, Seizure Disorder, Sleep Apnea/CPAP/BIPAP Additional Past Medical History / Comment(s): Other HX: Recent near respiratory failure, TIA possible CVA pt us unsure, Chronic UTI'S due to VALVE IN BLADDER TOO SMALL, START OF CATARACTS bilaterally,ARTHRITIS, GOUT,DOES'NT USE CPAP AT. HOME,KIDNEY STONE, BULGING DISCS. home o2 3l nc at all times , he has home updrafts, pneumonia 11/2013, non Q wave TN 11/2013, arthiritis .WT ON 08-16-14 WAS 87.8 KGS -AND ON 09-11-14 WT WAS 65.5 KGS. Last Myocardial Infarction Date:: UNK History of Any Multi-Drug Resistant Organisms: C-DIFF Date of last positivie culture/infection: None MDRO Source:: None Past Surgical History: Bladder Surgery, Coronary Bypass/CABG, Heart Catheterization Additional Past Surgical History / Comment(s): Cardiac cath with PTCA 12/14/13, CABG 5 vessek 01/02/14, BENIGN TUMOR ON SALIVARY GLANDS (RT) REMOVED, HAD A SUPRA PUBIC CATH IN PAST THAT GOT INFECTED ENDED UP AT [facility]. Past Anesthesia/Blood Transfusion Reactions: No Reported Reaction Past Psychological History: Depression Additional Psychological History / Comment(s): Pt lives alone denies outside services.stated left him around mar 2014. He is on home O2 at 3L/NC all of the time. Pt is independent in his ADL's. He uses a cane most of the time. He cooks his. own food. . Pt has had home care in the past but none now. He also has friends that help him and family calls to check on him as well. Twin has been helping him. Smoking Status: Former smoker Past Alcohol Use History: None Reported Additional Past Alcohol Use History / Comment(s): STARTED SMOKING AT AGE 19 QUIT 2012 3PPD FOR 10 YEARS THEN DECREASED TO 2 PPD UNTIL HE QUIT. 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, Past Drug Use History: None Reported - Past Family History Father Family Medical History: Cancer, Dementia, Hyperlipidemia, Hypertension, Myocardial Infarction (TN) Additional Family Medical History / Comment(s): AT AGE 78- Mother Family Medical History: Coronary Artery Disease (CAD), Dementia, Myocardial Infarction (TN) Additional Family Medical History / Comment(s): AT AGE 86 Brother(s) Family Medical History: No Reported History Sister(s) Family Medical History: Rheumatoid Arthritis (RA) Son(s) Family Medical History: No Reported History Daughter(s) Family Medical History: No Reported History General Exam - General Exam Comments Initial Comments: GENERAL: Patient is well-developed and well-nourished. Patient is nontoxic and well- hydrated and is in no acute distress. ENT: Neck is soft and supple. No significant lymphadenopathy is noted. Oropharynx is clear. Moist mucous membranes. Neck has full range of motion without eliciting any pain. EYES: The sclera were anicteric and conjunctiva were pink and moist. Extraocular movements were intact and pupils were equal round and reactive to light. Eyelids were unremarkable. PULMONARY: Unlabored respirations. Good breath sounds bilaterally. No audible rales rhonchi or wheezing was noted. CARDIOVASCULAR: There is a regular rate and rhythm without any murmurs gallops or rubs. ABDOMEN: Soft and nontender with normal bowel sounds. No palpable organomegaly was noted. There is no palpable pulsatile mass. SKIN: Skin is clear with no lesions or rashes and otherwise unremarkable. NEUROLOGIC: Patient is alert and oriented x3. Cranial nerves II through XII are grossly intact. Motor and sensory are also intact. Normal speech, volume and content. Symmetrical smile. MUSCULOSKELETAL: Normal extremities with adequate strength and full range of motion. LYMPHATICS: No significant lymphadenopathy is noted PSYCHIATRIC: Normal psychiatric evaluation. Limitations: no limitations Course Vital Signs 06/15/16 06/15/16 16:56 17:41 Temperature 96.2 F L Pulse Rate 60 60 Respiratory 18 18 Rate Blood Pressure 168/105 178/97 O2 Sat by Pulse 98 98 Oximetry Medical Decision Making - Medical Decision Making When asked the patient if her questions he responds was a joke and does not actually answer the question and when I ask him to answer the question is upset that I am badgering him. EKG shows atrial fibrillation with a rate of 57 bpm QRS 108 QT interval 446 QTC is 434. Patient's EKG shows Q wave in leads II, III, and F aVF as well as some T-wave inversions in leads V5 and V6 I compared this to an old EKG there are no acute changes noted. Patient's chest x-ray shows no acute abnormality. I will back into reevaluate the patient patient was having no chest pain. Because the patient's previous TN and is significant for the chest pain the removal of the pain with nitroglycerin I started the patient on heparin and admitted the patient I spoke with the admitting physician and he agreed to admit the patient I admitted the patient consult cardiology continued the heparin Nitropaste and aspirin on the floor. - Lab Data Result diagrams: 06/15/16 17:12 06/15/16 17:12 Lab Results 06/15/16 06/15/16 06/15/16 Range/Units 17:12 17:12 17:12 WBC 8.5 (3.8-10.6) k/uL RBC 5.46 (4.30-5.90) m/uL Hgb 15.7 D (13.0-17.5) gm/dL Hct 48.9 (39.0-53.0) % MCV 89.5 (80.0-100.0) fL MCH 28.8 (25.0-35.0) pg MCHC 32.2 (31.0-37.0) g/dL RDW 13.3 (11.5-15.5) % Plt Count 132 L (150-450) k/uL Neutrophils % 67 % Lymphocytes % 20 % Monocytes % 7 % Eosinophils % 3 % Basophils % 1 % Neutrophils # 5.7 (1.3-7.7) k/uL Lymphocytes # 1.7 (1.0-4.8) k/uL Monocytes # 0.6 (0-1.0) k/uL Eosinophils # 0.3 (0-0.7) k/uL Basophils # 0.1 (0-0.2) k/uL PT (9.0-12.0) sec INR (<1.1) APTT (22.0-30.0) sec Sodium 139 (137-145) mmol/L Potassium 4.9 (3.5-5.1) mmol/L Chloride 106 (98-107) mmol/L Carbon Dioxide 21 L (22-30) mmol/L Anion Gap 12 mmol/L BUN 30 H (9-20) mg/dL Creatinine 1.28 H (0.66-1.25) mg/dL Est GFR (MDRD) Af Amer >60 (>60 ml/min/1.73 sqM) Est GFR (MDRD) Non-Af 55 (>60 ml/min/1.73 sqM) Glucose 218 H (74-99) mg/dL Calcium 9.2 (8.4-10.2) mg/dL Magnesium 1.8 (1.6-2.3) mg/dL Total Bilirubin 0.9 (0.2-1.3) mg/dL AST 14 L (17-59) U/L ALT 22 (21-72) U/L Alkaline Phosphatase 96 (38-126) U/L Total Creatine Kinase 37 L (55-170) U/L CK-MB (CK-2) 1.4 (0.0-2.4) ng/mL CK-MB (CK-2) Rel Index 3.8 Troponin I 0.022 (0.000-0.034) ng/mL Total Protein 7.1 (6.3-8.2) g/dL Albumin 3.7 (3.5-5.0) g/dL 06/15/16 Range/Units 17:12 WBC (3.8-10.6) k/uL RBC (4.30-5.90) m/uL Hgb (13.0-17.5) gm/dL Hct (39.0-53.0) % MCV (80.0-100.0) fL MCH (25.0-35.0) pg MCHC (31.0-37.0) g/dL RDW (11.5-15.5) % Plt Count (150-450) k/uL Neutrophils % % Lymphocytes % % Monocytes % % Eosinophils % % Basophils % % Neutrophils # (1.3-7.7) k/uL Lymphocytes # (1.0-4.8) k/uL Monocytes # (0-1.0) k/uL Eosinophils # (0-0.7) k/uL Basophils # (0-0.2) k/uL PT 11.5 (9.0-12.0) sec INR 1.2 (<1.1) APTT 24.0 (22.0-30.0) sec Sodium (137-145) mmol/L Potassium (3.5-5.1) mmol/L Chloride (98-107) mmol/L Carbon Dioxide (22-30) mmol/L Anion Gap mmol/L BUN (9-20) mg/dL Creatinine (0.66-1.25) mg/dL Est GFR (MDRD) Af Amer (>60 ml/min/1.73 sqM) Est GFR (MDRD) Non-Af (>60 ml/min/1.73 sqM) Glucose (74-99) mg/dL Calcium (8.4-10.2) mg/dL Magnesium (1.6-2.3) mg/dL Total Bilirubin (0.2-1.3) mg/dL AST (17-59) U/L ALT (21-72) U/L Alkaline Phosphatase (38-126) U/L Total Creatine Kinase (55-170) U/L CK-MB (CK-2) (0.0-2.4) ng/mL CK-MB (CK-2) Rel Index Troponin I (0.000-0.034) ng/mL Total Protein (6.3-8.2) g/dL Albumin (3.5-5.0) g/dL Critical Care Time Critical Care Time: Yes Total Critical Care Time: 35 Disposition Clinical Impression: Unstable angina pectoris Disposition: ADMITTED IP TO THIS [facility] Time of Disposition: 18:37
[2016-06-15 17:26] LABS: Basophils # (A) 0.1 k/uL (0-0.2); Basophils % (A) 1 %; CH 29.7; CHCM 33.4; Eosinophils # (A) 0.3 k/uL (0-0.7); Eosinophils % (A) 3 %; HCT 48.9 % (39.0-53.0); HDW 2.44; Luc % (Auto) 2; Lymphocytes # (A) 1.7 k/uL (1.0-4.8); Lymphocytes % (A) 20 %; MCH 28.8 pg (25.0-35.0); MCHC 32.2 g/dL (31.0-37.0); MCV 89.5 fL (80.0-100.0); Mean Platelet Volume 9.2; Monocytes # (A) 0.6 k/uL (0-1.0); Monocytes % (A) 7 %; Neutrophils # (A) 5.7 k/uL (1.3-7.7); Neutrophils % (A) 67 %; RBC 5.46 m/uL (4.30-5.90); RDW 13.3 % (11.5-15.5); WBC 8.5 k/uL (3.8-10.6); WBC (Perox) 8.45
[2016-06-15 17:30] LABS: HGB 15.7 gm/dL (13.0-17.5)
[2016-06-15 17:36] LABS: INR 1.2 (<1.1); Prothrombin Time 11.5 sec (9.0-12.0)
--- NOTE | 2016-06-15 17:40 | XR ---
EXAMINATION TYPE: XR chest 2V DATE OF EXAM: 06/15/2016 5:26 PM COMPARISON: 05/05/2016 HISTORY: Chest pain TECHNIQUE: Frontal and lateral views of the chest are obtained. FINDINGS: There is a minimal 2 x 1 cm infiltrate over the left lower lobe on the frontal view.. Ther e are sternal wires. Thoracic aorta is atheromatous. There is no evidence of pleural effusion. There are chest leads. IMPRESSION: There is a new minimal infiltrate in the left lower lobe compared to last exam. No heart failure.
[2016-06-15 17:44] LABS: ALT 22 U/L (21-72); AST 14 U/L (17-59); Alkaline Phosphatase 96 U/L (38-126); Anion Gap 12 mmol/L; Blood Urea Nitrogen 30 mg/dL (9-20); Calcium 9.2 mg/dL (8.4-10.2); Carbon Dioxide 21 mmol/L (22-30); Chloride 106 mmol/L (98-107); Glucose 218 mg/dL (74-99); Magnesium 1.8 mg/dL (1.6-2.3); Non-African American GFR(MDRD) 55 (>60 ml/min/1.73 sqM); Potassium 4.9 mmol/L (3.5-5.1); Sodium 139 mmol/L (137-145); Total Bilirubin 0.9 mg/dL (0.2-1.3); Total Protein 7.1 g/dL (6.3-8.2)
[2016-06-15 18:03] LABS: Creatine Kinase MB 1.4 ng/mL (0.0-2.4); Troponin I 0.022 ng/mL (0.000-0.034)
[2016-06-15] MEDS ORDERED: HEPARIN SODIUM,PORCINE 5,000 UNIT/ML 1 ML VIAL IV ONE (18:36)
[2016-06-15] MEDS ORDERED: HEPARIN SODIUM,PORCINE/D5W PMX 25,000 UNIT in DEXTROSE/WATER 1 500ML.BAG IV SCH (18:45)
[2016-06-15] MEDS ORDERED: hydrALAZINE HCL 20 MG/ML 1 ML VIAL IVP STA (18:48)
[2016-06-15] MEDS ORDERED: NITROGLYCERIN SL TABS 0.4 MG TAB SUBLINGUAL PRN (18:54)
[2016-06-15 21:12] VITALS: BMI 21.4
[2016-06-15] MEDS: NITROGLYCERIN OINT 1 INCH/GM PACKET TOPICAL SCH (23:54)
[2016-06-16 00:42] LABS: Creatine Kinase MB 1.3 ng/mL (0.0-2.4); Troponin I 0.022 ng/mL (0.000-0.034)
[2016-06-16 03:36] VITALS: RESP 18
[2016-06-16] MEDS: NITROGLYCERIN OINT 1 INCH/GM PACKET TOPICAL SCH (05:42)
[2016-06-16 05:55] LABS: Cholesterol 91 mg/dL (<200); HDL Cholesterol 48 mg/dL (40-60); Triglycerides 62 mg/dL (<150)
[2016-06-16 06:07] LABS: Creatine Kinase MB 1.2 ng/mL (0.0-2.4); Troponin I 0.019 ng/mL (0.000-0.034)
[2016-06-16 06:44] LABS: Glucose,Whole Blood 216 mg/dL (75-99)
[2016-06-16] MEDS ORDERED: AMINOPHYLLINE 500 MG/20 ML VIAL IV PRN (07:04)
[2016-06-16] MEDS ORDERED: REGADENOSON 0.4 MG/5 ML SYRINGE IV ONE (07:04)
[2016-06-16] MEDS: INSULIN LISPRO (humaLOG) 300 UNIT/3 ML VIAL SQ SCH ×2 (08:46→13:10)
[2016-06-16 08:51] LABS: Hemoglobin A1C 10.6 % (4.2-6.1)
[2016-06-16] MEDS ORDERED: amLODIPine 10 MG TAB PO SCH (09:00)
[2016-06-16] MEDS ORDERED: MONTELUKAST 10 MG TAB PO SCH (09:00)
[2016-06-16] MEDS ORDERED: LISINOPRIL 20 MG TAB PO SCH (09:00)
[2016-06-16] MEDS ORDERED: FUROSEMIDE 40 MG TAB PO SCH (09:00)
[2016-06-16] MEDS ORDERED: POTASSIUM CHLORIDE ER 20 MEQ TAB.ER PO SCH (09:00)
[2016-06-16] MEDS ORDERED: PANTOPRAZOLE 40 MG TABLET PO SCH (09:00)
[2016-06-16] MEDS ORDERED: PARoxetine 20 MG TAB PO SCH (09:00)
[2016-06-16] MEDS ORDERED: hydrALAZINE HCL 50 MG TAB PO SCH (09:00)
[2016-06-16] MEDS ORDERED: ISOSORBIDE MONONITRATE ER 30 MG TAB.ER.24H PO SCH (09:00)
[2016-06-16] MEDS ORDERED: ASPIRIN 325 MG TAB PO SCH (09:00)
[2016-06-16] MEDS ORDERED: TAMSULOSIN 0.4 MG CAP.ER.24H PO SCH (09:00)
--- NOTE | 2016-06-16 09:43 | CONS ---
DATE OF CONSULTATION: Mr. Hdez is a 70-year-old male followed by Dr. Chace Gallo, history of coronary artery disease, status post coronary artery bypass grafting in 2013, has been seen by Dr. Underwood in the past who presented with symptoms of chest discomfort. He is very vague about his history and appears to have some elements of confusion. He said the discomfort occurred at rest. He had some symptoms in the past on and off but not as significant. He was in the hospital in April of this year with episode of bradycardia and underwent an echocardiogram at that time that revealed an overall preserved systolic function. His coronary artery bypass grafting was performed in 2013, and at that time he received a MCLAUGHLIN to the LAD, saphenous vein graft to the acute marginal branch of the RCA, saphenous vein graft to the circumflex, saphenous vein graft to the PLV and to the PDA. He had a MAZE procedure at that time with amputation of the left atrial appendage. He is limited in physical activity, has symptoms of dyspnea on exertion. His symptoms of chest pain are not exertion pattern on a regular basis. He denies any dizziness or palpitation. He denies any syncope. No clear PND, orthopnea, or peripheral edema, although as noted his history is limited. He has a prior history of chronic atrial fibrillation and has been anticoagulated. His coronary risk factors are remarkable for remote history of smoking. He is diabetic, hypertensive and hyperlipidemic. His medications include Apresoline 50 mg 3 times a day, Norvasc 10 mg daily, Coumadin, Flomax, paroxetine, Singulair, melatonin, Zestril 20 mg daily, isosorbide mononitrate 30 mg daily, Lasix 40 mg twice a day, Lipitor 40 mg daily and Baclofen in addition to Keppra. REVIEW OF SYSTEMS: RESPIRATORY SYSTEM: Had dyspnea on exertion. No recent wheezing or cough. GI SYSTEM: He denies any recent GI bleeding. No peptic ulcer disease. SYSTEM: No dysuria or hematuria. NERVOUS SYSTEM: He has a history of stroke and history of seizure disorder. Past surgical history is remarkable for the history of coronary artery bypass grafting, cataract surgery. PHYSICAL EXAMINATION: He is a 70-year-old male, alert, in no apparent distress, confused at times. Blood pressure is running in the 160s to 170s with a heart rate in the 50s. HEAD: Normocephalic. EYES: Sclerae nonicteric. NECK: Good upstroke. No bruit. No ejection distention. LUNGS: No wheezes. HEART: Irregularly irregular. S1, S2, no S3, with a systolic murmur. No diastolic murmur. No rub. ABDOMEN: Soft, nontender, positive bowel sounds. No organomegaly. EXTREMITIES: No edema. Intact distal pulses. Lab data revealed a BUN and creatinine of 30 and 1.28. Troponin 0.022, 0.022, 0.019. Cholesterol of 91, LDL of 48. Potassium 4.9. Hemoglobin of 15.7. His EKG shows atrial fibrillation with nonspecific ST-T wave changes, rate of 57 with evidence to suggestive prior myocardial infarction in the inferior wall. Chest x-ray shows minimal infiltrate in the left lower lobe. The rhythm strips revealed occasional PVCs. IMPRESSION: 1. Chest discomfort of unclear etiology. No evidence of acute coronary artery syndrome. 2. Status post coronary artery bypass grafting. 3. Chronic atrial fibrillation. 4. History of cerebrovascular accident. 5. History of seizure. 6. Hypertension. 7. Diabetes. 8. Hyperlipidemia. RECOMMENDATION: I will stop the heparin. I will proceed with a myocardial perfusion imaging to further assess his status and guide his treatment. The rationale behind the plan were discussed with the patient. Depending on his lab testing, further recommendation will be made. The patient will follow as an outpatient with Dr. Underwood. Thank you for this consult. Will follow with you.
[2016-06-16 11:52] VITALS: BP 160/93; PULSE 52; TEMP 97.5
[2016-06-16] MEDS ORDERED: MULTIVITAMINS, THERA 1 EACH TAB PO SCH (12:00)
--- NOTE | 2016-06-16 12:04 | NM ---
EXAMINATION TYPE: NM stress lexiscan cardiolite DATE OF EXAM: 06/16/2016 11:53 AM COMPARISON: Prior nuclear medicine Cardiolite Lexiscan stress test December 16, 2014. HISTORY: History of tobacco use quit 10 years ago and prior strokes presents with chest pain, palpita tions, and shortness of breath per patient. TECHNIQUE: After the intravenous administration of 10.9 mCi Tc 99m Sestamibi - Cardiolite resting SP ECT images acquired 75 minutes post injection. The patient received 0.4mg Lexiscan, 27.3 mCi Tc 99m Sestamibi - Stress images obtained [address] injection FINDINGS: Review of stress and rest SPECT images redemonstrates fixed defects along the inferolateral left vent ricular wall consistent with area of old infarct as there is hypokinesis of this segment redemonstrat ed. There is no clear evidence for reversible perfusion defects similar to prior exam. Overall ejecti on fraction is 37% on current exam, diminished from the normal range, similar to prior. IMPRESSION: Old infarct redemonstrated. No convincing scintigraphic evidence for reversible ischemia on today's study.
[2016-06-16 12:09] LABS: Glucose,Whole Blood 160 mg/dL (75-99)
--- NOTE | 2016-06-16 12:38 | P.HPIM ---
History of Present Illness H&P Date: 06/16/16 Chief Complaint: Chest pain HISTORY AND PHYSICAL AND DISCHARGE SUMMARY: This is a 70-year-old male one of Dr. Lucas Gallo's patient with past medical history of hypertension, hyperlipidemia, diabetes, COPD, ,CHF , alcoholism and worsening heart failure who had open heart surgery with the CABG 2015 ended up having multiple complications and the multiple rehospitalization for worsening shortness of breath, A. fib and other complication. He was last hospitalized on 05/06/2016 at which time he was here for bradycardia and beta kojo was discontinued. Patient states that he woke up the other day and had chest pain on the left side under his left breast. He states he has had this before but it was not as strong as this. He states it was not severe. He denies any radiation of the pain. He denies any lightheadedness, dizziness, diaphoresis, nausea. He states the pain is completely gone at this point. He denies any worsening or improvement with activity, foods or medications. Patient apparently had a stress test done a cardiology office one month ago which was abnormal and they have been trying to reach him for heart catheterization. Patient did go for a Lexiscan stress Cardiolite which showed old infarct redemonstrated. No convincing evidence of reversible ischemia. Patient has been cleared for discharge by Dr. Sanchez with plan for follow-up with Dr. Underwood. Patient is being discharged home today in stable condition. Review of Systems All systems: negative Constitutional: Denies anorexia, Denies chills, Denies fatigue, Denies fever, Denies lethargy, Denies malaise, Denies night sweats, Denies poor appetite, Denies sweats, Denies weakness Eyes: denies blurred vision, denies pain Ears, nose, mouth and throat: Denies headache, Denies sore throat, Denies vertigo Cardiovascular: Reports chest pain, Denies decreased exercise tolerance, Denies dyspnea on exertion, Denies edema, Denies leg edema, Denies lightheadedness, Denies palpitations, Denies paroxysmal nocturnal dyspnea, Denies shortness of breath, Denies syncope Respiratory: Denies cough, Denies cough with sputum, Denies dyspnea, Denies excessive sputum, Denies hemoptysis Gastrointestinal: Denies abdominal pain, Denies diarrhea, Denies nausea, Denies vomiting Musculoskeletal: Denies myalgias Integumentary: Denies pruritus, Denies rash Neurological: Denies numbness, Denies weakness Psychiatric: Denies anxiety, Denies depression Endocrine: Denies fatigue, Denies weight change Past Medical History Past Medical History: Atrial Fibrillation, Coronary Artery Disease (CAD), Heart Failure, COPD, Diabetes Mellitus, GERD/Reflux, Hyperlipidemia, Hypertension, Myocardial Infarction (non Q-wave), Musculoskeletal Disorder, Osteoarthritis (OA ), Pneumonia, Prostate Disorder, Seizure Disorder, Sleep Apnea/CPAP/BIPAP Additional Past Medical History / Comment(s): Other HX: Recent near respiratory failure, TIA possible CVA pt us unsure, Chronic UTI'S due to VALVE IN BLADDER TOO SMALL, START OF CATARACTS bilaterally,ARTHRITIS, GOUT,DOES'NT USE CPAP AT. HOME,KIDNEY STONE, BULGING DISCS. home o2 3l nc at all times , he has home updrafts, pneumonia 11/2013, non Q wave TN 11/2013, arthiritis .WT ON 08-16-14 WAS 87.8 KGS -AND ON 09-11-14 WT WAS 65.5 KGS. Last Myocardial Infarction Date:: UNK History of Any Multi-Drug Resistant Organisms: C-DIFF Date of last positivie culture/infection: None MDRO Source:: None Past Surgical History: Bladder Surgery, Coronary Bypass/CABG, Heart Catheterization Additional Past Surgical History / Comment(s): Cardiac cath with PTCA 12/14/13, CABG 5 vessek 01/02/14, BENIGN TUMOR ON SALIVARY GLANDS (RT) REMOVED, HAD A SUPRA PUBIC CATH IN PAST THAT GOT INFECTED ENDED UP AT [facility]. Past Anesthesia/Blood Transfusion Reactions: No Reported Reaction Past Psychological History: Depression Additional Psychological History / Comment(s): Pt lives alone denies outside services.stated left him around mar 2014. He is on home O2 at 3L/NC all of the time. Pt is independent in his ADL's. He uses a cane most of the time. He cooks his. own food. . Pt has had home care in the past but none now. He also has friends that help him and family calls to check on him as well. Twin has been helping him. Smoking Status: Former smoker Past Alcohol Use History: None Reported Additional Past Alcohol Use History / Comment(s): STARTED SMOKING AT AGE 19 QUIT 2012 3PPD FOR 10 YEARS THEN DECREASED TO 2 PPD UNTIL HE QUIT. 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, Past Drug Use History: None Reported - Past Family History Father Family Medical History: Cancer, Dementia, Hyperlipidemia, Hypertension, Myocardial Infarction (TN) Additional Family Medical History / Comment(s): AT AGE 78- Mother Family Medical History: Coronary Artery Disease (CAD), Dementia, Myocardial Infarction (TN) Additional Family Medical History / Comment(s): AT AGE 86 Brother(s) Family Medical History: No Reported History Sister(s) Family Medical History: Rheumatoid Arthritis (RA) Son(s) Family Medical History: No Reported History Daughter(s) Family Medical History: No Reported History Medications and Allergies Home Medications Medication Instructions Recorded Confirmed Type Baclofen 10 mg PO HS 04/26/14 06/16/16 History Isosorbide Mononitrate ER [Imdur] 30 mg PO DAILY 04/26/14 06/16/16 History levETIRAcetam [Keppra] 750 mg PO BID 04/26/14 06/16/16 History Atorvastatin [Lipitor] 40 mg PO HS 06/14/14 06/16/16 History Melatonin 6 mg PO HS 12/12/14 06/16/16 History ALPRAZolam [Xanax] 0.25 mg PO HS 11/20/15 06/16/16 History HYDROcodone/APAP 10-325MG [Avalon 1 - 2 tab PO Q6H PRN 04/18/16 06/16/16 History 10-325] Lisinopril [Zestril] 20 mg PO DAILY 04/18/16 06/16/16 History Omeprazole [PriLOSEC] 20 mg PO DAILY 04/18/16 06/16/16 History PARoxetine HCL [Paxil] 40 mg PO DAILY 04/18/16 06/16/16 History Warfarin [Coumadin] 7.5 mg PO DAILY 04/18/16 06/16/16 History hydrALAZINE HCL [Apresoline] 50 mg PO TID 04/18/16 06/16/16 History Potassium Chloride ER [K-Dur 20] 20 meq PO DAILY 05/05/16 06/16/16 History Montelukast [Singulair] 10 mg PO DAILY 06/16/16 06/16/16 History Multivitamins, Thera [Multivitamin] 1 tab PO DAILY 06/16/16 06/16/16 History Allergies Allergy/AdvReac Type Severity Reaction Status Date / Time adhesive AdvReac Unknown Verified 06/15/16 21:12 influenza virus vaccine, AdvReac Nausea & Verified 06/15/16 21:12 specific Vomiting & [Influenza Virus Diarrhea Vacc,Specific] Physical Exam Vitals: Vital Signs Temp Pulse Pulse Pulse Pulse Resp BP 06/16/16 07:57 97.6 F 47 L 18 06/16/16 04:14 98.8 F 52 L 18 06/16/16 03:36 54 L 18 06/16/16 00:00 98 F 68 71 16 06/15/16 20:10 97.3 F L 69 18 06/15/16 20:00 62 18 06/15/16 19:52 67 18 175/92 BP Pulse Ox 06/16/16 07:57 172/90 96 06/16/16 04:14 178/80 95 06/16/16 03:36 06/16/16 00:00 163/94 97 06/15/16 20:10 164/86 96 06/15/16 20:00 06/15/16 19:52 99 Intake and Output 06/15/16 06/16/16 06/16/16 22:59 06:59 14:59 Intake Total 2788 Balance 2788 Intake: IV 160 0.9 NS @ KVO 160 Intake, IV Titration 128 Amount Heparin Sodium,Porcine/ 128 D5w Pmx 25,000 unit In Dextrose/Water 1 500ml. bag @ 12 UNITS/KG/HR 15. 78 mls/hr IV .Q24H [facility] Rx #:[id number] Oral 2500 Other: Voiding Method Toilet Toilet Toilet Urinal Urinal Urinal # Voids 2 Weight 60.1 kg 60.1 kg General appearance: no distress, thin - EENT Eyes: Reports anicteric sclerae, Reports disc margins sharp, Reports PERRLA, Reports normal apperance, Denies fundus normal, Denies ptosis, Denies scleral icterus ENT: Reports hard of hearing, Reports NA/AT, Reports normal oropharynx, Denies thrush, Denies tonsillar exudates, Denies tonsillar swelling Ears: bilateral: normal - Neck Neck: Reports normal ROM, Denies lymphadenopathy, Denies rigidity, Denies stridor, Denies thyromegaly Carotids: bilateral: upstroke delayed Thyroid: bilateral: normal size - Respiratory Respiratory: bilateral: diminished, negative: dullness, rales, rhonchi, wheezing , prolonged expiration, prolonged inspiration - Cardiovascular Rhythm: regularly irregular Heart sounds: normal: S1, S2 Abnormal Heart Sounds: Reports systolic murmur - Gastrointestinal General gastrointestinal: Reports normal bowel sounds, Reports soft, Reports tenderness, Denies umbilical hernia, Denies ventral hernia - Integumentary Integumentary: Reports normal, Reports normal turgor - Neurologic Neurologic: CNII-XII intact, focal deficits (Left peripheral seventh nerve palsy , 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 Short-term memory loss is noted. Results CBC & Chem 7: 06/15/16 17:12 06/15/16 17:12 Labs: Abnormal Lab Results - Last 24 Hours (Table) 06/15/16 06/16/16 06/16/16 Range/Units 23:32 05:20 05:20 APTT (22.0-30.0) sec POC Glucose (mg/dL) (75-99) mg/dL Hemoglobin A1c 10.6 H (4.2-6.1) % Total Creatine Kinase 39 L 36 L (55-170) U/L 06/16/16 06/16/16 Range/Units 05:20 06:42 APTT 33.3 H (22.0-30.0) sec POC Glucose (mg/dL) 216 H (75-99) mg/dL Hemoglobin A1c (4.2-6.1) % Total Creatine Kinase (55-170) U/L Thrombosis Risk Factor Assmnt - DVT/VTE Prophylaxis DVT/VTE Prophylaxis: Pharmacologic Prophylaxis ordered - Choose All That Apply Each Factor Represents 1 point: Abnormal pulmonary function (COPD) Each Risk Factor Represents 2 Points: Age 61-74 years Thrombosis Risk Factor Assessment Total Risk Factor Score: 3 Thrombosis Risk Factor Assessment Level: Moderate Risk Assessment and Plan Plan: 1. Chest discomfort of unclear etiology. 2. Recent history of bradycardia for which beta kojo was discontinued in April 2016. 3. Arrhythmia history with prior Nonsustained ventricular tachycardia on 2015, echocardiogram October 2015 showed atrial fibrillation with small pericardial effusion ejection fraction 45-50% inferolateral hypokinesis with palpation of LA size over 40. 4. CAD post CABG. 5. Diabetes mellitus type II, uncontrolled with hemoglobin A1c of 10.6. 6. Hypertension and hypertensive cardiovascular disease. 7. Hyperlipidemia 8. Chronic A. fib. 9. Chronic systolic heart failure. 10. Depression, recurrent 11. Seizure 12. BPH 13. GERD 14. History of Armas's palsy, stable Patient placed on the observation unit. Discharge plan: Return home Impression and plan of care have been directed as dictated by the signing physician. Carly Greene nurse practitioner acting as scribe for signing physician. Cc Dr. Lucas Gallo Time with Patient: Greater than 30
[2016-06-16] MEDS ORDERED: INSULIN LISPRO (humaLOG) 300 UNIT/3 ML VIAL SQ SCH (13:00)
--- NOTE | 2016-06-16 15:03 | EST ---
DATE OF SERVICE: 06/16/2016 AGE: 70Y SEX: M HT: 69" WT: 132 lbs. Lexiscan Cardiolite Stress Test *Heart Rate Blood Pressure *Rest: 66 Rest: 161/98 * *Max. Achieved: 78 Maximum BP: 160/94 85% PMHR: - 100% PMHR: - *METS: - INDICATIONS: Chest pain. MEDICATIONS: - Patient was given Lexiscan injection over a period of 15 seconds. Peak heart rate of 78 was achieved. Maximum blood pressure of 160/94 mmHg was noted. Resting EKG shows normal sinus rhythm with possible old inferior wall myocardial infarction and ST depression is noted in V2, V6. No significant ST segment change from the baseline was noted. Occasional PVCs were noted. FINAL IMPRESSION: 1. This EKG is inconclusive to diagnose ischemia because of the resting ST segment abnormalities. 2. The results of the nuclear study will follow.
[2016-06-16] MEDS ORDERED: WARFARIN 7.5 MG TAB PO SCH (18:00)
[2016-06-16] MEDS ORDERED: MELATONIN 3 MG TABLET PO SCH (21:00)
[2016-06-16] MEDS ORDERED: ALPRAZolam 0.25 MG TAB PO SCH (21:00)
[2016-06-16] MEDS ORDERED: INSULIN GLARGINE 100 UNIT/ML 10 ML VIAL SQ SCH (21:00)
[2016-06-16] MEDS ORDERED: ATORVASTATIN 40 MG TAB PO SCH (21:00)
[2016-06-16] MEDS ORDERED: BACLOFEN 10 MG TAB PO SCH (21:00)
== END 2016-06-16 13:50 | disposition home or self-care (01) ==
LOC: EC 16:54 → 3OBS 18:54
PROVIDERS: ADMIT Internal Medicine; ATTEND Internal Medicine
DX: R07.9 Chest pain, unspecified (principal); I48.2 Chronic atrial fibrillation; E11.65 Type 2 diabetes mellitus with hyperglycemia; E78.5 Hyperlipidemia, unspecified; F32.9 Major depressive disorder, single episode, unspecified; G40.909 Epilepsy, unspecified, not intractable, without status epilepticus; G47.30 Sleep apnea, unspecified; I11.0 Hypertensive heart disease with heart failure; I50.22 Chronic systolic (congestive) heart failure; I25.10 Atherosclerotic heart disease of native coronary artery without angina pectoris; I25.2 Old myocardial infarction; J44.9 Chronic obstructive pulmonary disease, unspecified; K21.9 Gastro-esophageal reflux disease without esophagitis; M10.9 Gout, unspecified; N40.0 Benign prostatic hyperplasia without lower urinary tract symptoms; Z79.01 Long term (current) use of anticoagulants; Z86.73 Personal history of transient ischemic attack (TIA), and cerebral infarction without residual deficits; Z87.891 Personal history of nicotine dependence; Z95.1 Presence of aortocoronary bypass graft; Z99.81 Dependence on supplemental oxygen; Z79.4 Long term (current) use of insulin; Z88.7 Allergy status to serum and vaccine
CPT/HCPCS: 36415; 93005; 93017; 80061; 80053; 83036; 82550 ×2; 82553 ×2; 83735; 84484 ×2; 85025; 85610; 85730 ×2; 71020; 78452; 99291; 96365; 96375; 96376; G0378 ×2; A9500; J0360; J1644 ×2; J2785; 96366

== ENCOUNTER 2017-08-11 11:21 | Inpatient (IN) | payer BC, MEDICARE ==
[2017-08-11] MEDS ORDERED: SODIUM CHLORIDE 0.9% 1,000 ML IV STA (11:36)
--- NOTE | 2017-08-11 11:40 | ED ---
General Adult HPI - General Stated complaint: WEAKNESS Time Seen by Provider: 08/11/17 11:25 Source: RN notes reviewed - History of Present Illness Initial comments: This is a 71-year-old male who is brought into the emergency department for generalized weakness. Patient's only taken care of by his son but he's in the hospital so the neighbors checking on the patient. According to the neighbor the patient has not moved from the chair that he was in yesterday and he has urinated all over himself and all over the chair because he is too weak to get up. Patient continues to smoke. Patient complains of just generalized weakness per patient denies any chest pain or palpitations. Patient denies difficulty breathing [place] of breath per patient denies headache patient denies numbness weakness. Patient denies any abdominal pain patient denies nausea vomiting or diarrhea. Patient states he does feel as though he has to urinate. Patient denies any dysuria hematuria urinary frequency. Patient denies any recent injury. - Related Data Home Medications Medication Instructions Recorded Confirmed Baclofen 10 mg PO HS 04/26/14 08/11/17 Isosorbide Mononitrate ER [Imdur] 30 mg PO DAILY 04/26/14 08/11/17 levETIRAcetam [Keppra] 750 mg PO BID 04/26/14 08/11/17 Atorvastatin [Lipitor] 40 mg PO HS 06/14/14 08/11/17 ALPRAZolam [Xanax] 0.25 mg PO HS 11/20/15 08/11/17 Lisinopril [Zestril] 20 mg PO DAILY 04/18/16 08/11/17 Omeprazole [PriLOSEC] 20 mg PO BID 04/18/16 08/11/17 PARoxetine HCL [Paxil] 40 mg PO DAILY 04/18/16 08/11/17 hydrALAZINE HCL [Apresoline] 75 mg PO BID 04/18/16 08/11/17 Potassium Chloride ER [K-Dur 20] 20 meq PO DAILY 05/05/16 08/11/17 Montelukast [Singulair] 10 mg PO DAILY 06/16/16 08/11/17 Albuterol Inhaler [Ventolin Hfa 2 puff INHALATION RT-QID PRN 08/11/17 08/11/17 Inhaler] Budesonide [Pulmicort] 0.5 mg INHALATION RT-BID 08/11/17 08/11/17 HYDROcodone/APAP 5-325MG [Blaine 1 tab PO TID 08/11/17 08/11/17 5-325] Insulin Glargine [Lantus] 20 unit SQ HS 08/11/17 08/11/17 Ipratropium-Albuterol Nebulize 3 ml INHALATION RT-QID 08/11/17 08/11/17 [Duoneb 0.5 mg-3 mg/3 ml Soln] Nitroglycerin Sl Tabs [Nitrostat] 0.4 mg SUBLINGUAL Q5M PRN 08/11/17 08/11/17 amLODIPine [Norvasc] 5 mg PO DAILY 08/11/17 08/11/17 Previous Rx's Medication Instructions Recorded Furosemide [Lasix] 40 mg PO BID tab 12/23/14 Tamsulosin HCl [Flomax] 0.4 mg PO BID #0 12/24/14 Allergies Allergy/AdvReac Type Severity Reaction Status Date / Time adhesive AdvReac Unknown Verified 08/11/17 12:23 influenza virus vaccine, AdvReac Nausea & Verified 08/11/17 12:23 specific Vomiting & [Influenza Virus Diarrhea Vacc,Specific] Review of Systems ROS Statement: Those systems with pertinent positive or pertinent negative responses have been documented in the HPI. ROS Other: All systems not noted in ROS Statement are negative. Past Medical History Past Medical History: Atrial Fibrillation, Coronary Artery Disease (CAD), Heart Failure, COPD, Diabetes Mellitus, GERD/Reflux, Hyperlipidemia, Hypertension, Myocardial Infarction (non Q-wave), Musculoskeletal Disorder, Osteoarthritis (OA ), Pneumonia, Prostate Disorder, Seizure Disorder, Sleep Apnea/CPAP/BIPAP Additional Past Medical History / Comment(s): Other HX: Recent near respiratory failure, TIA possible CVA pt us unsure, Chronic UTI'S due to VALVE IN BLADDER TOO SMALL, START OF CATARACTS bilaterally,ARTHRITIS, GOUT,DOES'NT USE CPAP AT. HOME,KIDNEY STONE, BULGING DISCS. home o2 3l nc at all times , he has home updrafts, pneumonia 11/2013, non Q wave [place] 11/2013, arthiritis .WT ON 08-16-14 WAS 87.8 KGS -AND ON 09-11-14 WT WAS 65.5 KGS. 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 Past Anesthesia/Blood Transfusion Reactions: No Reported Reaction Past Psychological History: Depression Additional Psychological History / Comment(s): Pt lives alone denies outside services.stated left him around mar 2014. He is on home O2 at 3L/NC all of the time. Pt is independent in his ADL's. He uses a cane most of the time. He cooks his. own food. . Pt has had home care in the past but none now. He also has friends that help him and family calls to check on him as well. Twin has been helping him. Smoking Status: Former smoker Past Alcohol Use History: None Reported Additional Past Alcohol Use History / Comment(s): STARTED SMOKING AT AGE 19 QUIT 2012 3PPD FOR 10 YEARS THEN DECREASED TO 2 PPD UNTIL HE QUIT. 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, Past Drug Use History: None Reported - Past Family History Father Family Medical History: Cancer, Dementia, Hyperlipidemia, Hypertension, Myocardial Infarction (NH) Additional Family Medical History / Comment(s): AT AGE 78- Mother Family Medical History: Coronary Artery Disease (CAD), Dementia, Myocardial Infarction (NH) Additional Family Medical History / Comment(s): AT AGE 86 Brother(s) Family Medical History: No Reported History Sister(s) Family Medical History: Rheumatoid Arthritis (RA) Son(s) Family Medical History: No Reported History Daughter(s) Family Medical History: No Reported History General Exam - General Exam Comments Initial Comments: GENERAL: Patient is well-developed and well-nourished. Patient is nontoxic and well- hydrated and is in mild distress. Patient is very weak and is unable to sit up in bed on his own. ENT: Neck is soft and supple. No significant lymphadenopathy is noted. Oropharynx is clear. Moist mucous membranes. Neck has full range of motion without eliciting any pain. EYES: The sclera were anicteric and conjunctiva were pink and moist. Extraocular movements were intact and pupils were equal round and reactive to light. Eyelids were unremarkable. PULMONARY: Unlabored respirations. Good breath sounds bilaterally. No audible rales rhonchi or wheezing was noted. CARDIOVASCULAR: There is a regular rate and rhythm without any murmurs gallops or rubs. ABDOMEN: Soft and nontender with normal bowel sounds. No palpable organomegaly was noted. There is no palpable pulsatile mass. SKIN: Skin is clear with no lesions or rashes and otherwise unremarkable. NEUROLOGIC: Patient is alert and oriented 2. Cranial nerves II through XII are grossly intact. Motor and sensory are also intact. Normal speech, volume and content. Symmetrical smile. MUSCULOSKELETAL: Normal extremities with adequate strength and full range of motion. No lower extremity swelling or edema. No calf tenderness. LYMPHATICS: No significant lymphadenopathy is noted PSYCHIATRIC: Normal psychiatric evaluation. Normal interpersonal interactions appears functionally intact in deals appropriately with others. No signs of depression. No signs of anxiety. Course Vital Signs 08/11/17 08/11/17 08/11/17 11:30 12:52 13:00 Temperature 97.8 F Pulse Rate 84 88 97 Respiratory 16 18 16 Rate Blood Pressure 205/153 228/98 194/85 O2 Sat by Pulse 94 L 96 99 Oximetry 08/11/17 08/11/17 14:00 15:00 Temperature Pulse Rate 93 96 Respiratory 16 18 Rate Blood Pressure 173/79 169/84 O2 Sat by Pulse 98 97 Oximetry Procedures - Catheter Insertion (Urinary) Indications: to alleviate urinary retention Prophylactic Antibiotics Given: No Bladder Scan/US before Catheterization: No Preparation: Povidone-Iodine Type of Catheter Inserted: 2 way, coude tip Catheter Salv[place] Size: 14 Results: successfully catheterized-immediate flow Patient Tolerated Procedure: well Complications: none Medical Decision Making - Medical Decision Making Patient's EKG shows an sinus rhythm with multiple PVCs at 93 bpm QRS is under 2 QT interval is 46 QTC is 504. Patient's EKG shows no ST segment elevation however there is T-wave inversions in leads V4 through V6 which were seen there previously. Chest x-ray shows no acute abnormality. I spoke with Dr. Thompson she agreed to admit the patient I admitted the patient I wrote admitting orders. I went back into reevaluate the patient and he had no complaints and was resting comfortably. I reevaluated his abdomen because of the leukocytosis and it was nontender. - Lab Data Result diagrams: 08/12/17 06:15 08/12/17 06:15 Lab Results 08/11/17 08/11/17 08/11/17 Range/Units 11:36 11:36 11:36 WBC 29.3 H* (3.8-10.6) k/uL RBC 5.96 H (4.30-5.90) m/uL Hgb 16.7 (13.0-17.5) gm/dL Hct 51.2 (39.0-53.0) % MCV 85.9 (80.0-100.0) fL MCH 28.0 (25.0-35.0) pg MCHC 32.6 (31.0-37.0) g/dL RDW 14.0 (11.5-15.5) % Plt Count 212 (150-450) k/uL Neutrophils % 90 % Lymphocytes % 4 % Monocytes % 5 % Eosinophils % 0 % Basophils % 0 % Neutrophils # 26.2 H (1.3-7.7) k/uL Lymphocytes # 1.2 (1.0-4.8) k/uL Monocytes # 1.5 H (0-1.0) k/uL Eosinophils # 0.1 (0-0.7) k/uL Basophils # 0.0 (0-0.2) k/uL PT (9.0-12.0) sec INR (<1.2) APTT (22.0-30.0) sec Sodium 146 H (137-145) mmol/L Potassium 4.4 (3.5-5.1) mmol/L Chloride 107 (98-107) mmol/L Carbon Dioxide 23 (22-30) mmol/L Anion Gap 16 mmol/L BUN 53 H (9-20) mg/dL Creatinine 2.50 H (0.66-1.25) mg/dL Est GFR (CKD-EPI)AfAm 28 (>60 ml/min/1.73 sqM) Est GFR (CKD-EPI)NonAf 25 (>60 ml/min/1.73 sqM) Glucose 79 (74-99) mg/dL Lactic Ac Sepsis Rflx Plasma Lactic Acid [place] (0.7-2.0) mmol/L Calcium 8.8 (8.4-10.2) mg/dL Magnesium 2.0 (1.6-2.3) mg/dL Total Bilirubin 0.7 (0.2-1.3) mg/dL AST 50 (17-59) U/L ALT 20 L (21-72) U/L Alkaline Phosphatase 147 H (38-126) U/L Total Creatine Kinase 596 H (55-170) U/L CK-MB (CK-2) 5.0 H* (0.0-2.4) ng/mL CK-MB (CK-2) Rel Index 0.8 Troponin I 0.158 H* (0.000-0.034) ng/mL Total Protein 6.4 (6.3-8.2) g/dL Albumin 3.0 L (3.5-5.0) g/dL Urine Color Urine Appearance (Clear) Urine pH (5.0-8.0) Ur Specific [place] (1.001-1.035) Urine Protein (Negative) Urine Glucose (UA) (Negative) Urine Ketones (Negative) Urine Blood (Negative) Urine Nitrite (Negative) Urine Bilirubin (Negative) Urine Urobilinogen (<2.0) mg/dL Ur Leukocyte Esterase (Negative) Urine RBC (0-5) /hpf Urine WBC (0-5) /hpf Ur Squamous Epith Cells (0-4) /hpf Urine Bacteria (None) /hpf 08/11/17 08/11/17 08/11/17 Range/Units 11:36 11:36 12:17 WBC (3.8-10.6) k/uL RBC (4.30-5.90) m/uL Hgb (13.0-17.5) gm/dL Hct (39.0-53.0) % MCV (80.0-100.0) fL MCH (25.0-35.0) pg MCHC (31.0-37.0) g/dL RDW (11.5-15.5) % Plt Count (150-450) k/uL Neutrophils % % Lymphocytes % % Monocytes % % Eosinophils % % Basophils % % Neutrophils # (1.3-7.7) k/uL Lymphocytes # (1.0-4.8) k/uL Monocytes # (0-1.0) k/uL Eosinophils # (0-0.7) k/uL Basophils # (0-0.2) k/uL PT 11.6 (9.0-12.0) sec INR 1.2 H (<1.2) APTT 26.1 (22.0-30.0) sec Sodium (137-145) mmol/L Potassium (3.5-5.1) mmol/L Chloride (98-107) mmol/L Carbon Dioxide (22-30) mmol/L Anion Gap mmol/L BUN (9-20) mg/dL Creatinine (0.66-1.25) mg/dL Est GFR (CKD-EPI)AfAm (>60 ml/min/1.73 sqM) Est GFR (CKD-EPI)NonAf (>60 ml/min/1.73 sqM) Glucose (74-99) mg/dL Lactic Ac Sepsis Rflx Plasma Lactic Acid [place] 2.2 H* (0.7-2.0) mmol/L Calcium (8.4-10.2) mg/dL Magnesium (1.6-2.3) mg/dL Total Bilirubin (0.2-1.3) mg/dL AST (17-59) U/L ALT (21-72) U/L Alkaline Phosphatase (38-126) U/L Total Creatine Kinase (55-170) U/L CK-MB (CK-2) (0.0-2.4) ng/mL CK-MB (CK-2) Rel Index Troponin I (0.000-0.034) ng/mL Total Protein (6.3-8.2) g/dL Albumin (3.5-5.0) g/dL Urine Color Yellow Urine Appearance Clear (Clear) Urine pH 6.5 (5.0-8.0) Ur Specific [place] 1.020 (1.001-1.035) Urine Protein 4+ H (Negative) Urine Glucose (UA) Negative (Negative) Urine Ketones Negative (Negative) Urine Blood Moderate H (Negative) Urine Nitrite Negative (Negative) Urine Bilirubin Negative (Negative) Urine Urobilinogen <2.0 (<2.0) mg/dL Ur Leukocyte Esterase Negative (Negative) Urine RBC 4 (0-5) /hpf Urine WBC 6 H (0-5) /hpf Ur Squamous Epith Cells 6 H (0-4) /hpf Urine Bacteria Rare H (None) /hpf 08/11/17 Range/Units 12:47 WBC (3.8-10.6) k/uL RBC (4.30-5.90) m/uL Hgb (13.0-17.5) gm/dL Hct (39.0-53.0) % MCV (80.0-100.0) fL MCH (25.0-35.0) pg MCHC (31.0-37.0) g/dL RDW (11.5-15.5) % Plt Count (150-450) k/uL Neutrophils % % Lymphocytes % % Monocytes % % Eosinophils % % Basophils % % Neutrophils # (1.3-7.7) k/uL Lymphocytes # (1.0-4.8) k/uL Monocytes # (0-1.0) k/uL Eosinophils # (0-0.7) k/uL Basophils # (0-0.2) k/uL PT (9.0-12.0) sec INR (<1.2) APTT (22.0-30.0) sec Sodium (137-145) mmol/L Potassium (3.5-5.1) mmol/L Chloride (98-107) mmol/L Carbon Dioxide (22-30) mmol/L Anion Gap mmol/L BUN (9-20) mg/dL Creatinine (0.66-1.25) mg/dL Est GFR (CKD-EPI)AfAm (>60 ml/min/1.73 sqM) Est GFR (CKD-EPI)NonAf (>60 ml/min/1.73 sqM) Glucose (74-99) mg/dL Lactic Ac Sepsis Rflx Y Plasma Lactic Acid [place] (0.7-2.0) mmol/L Calcium (8.4-10.2) mg/dL Magnesium (1.6-2.3) mg/dL Total Bilirubin (0.2-1.3) mg/dL AST (17-59) U/L ALT (21-72) U/L Alkaline Phosphatase (38-126) U/L Total Creatine Kinase (55-170) U/L CK-MB (CK-2) (0.0-2.4) ng/mL CK-MB (CK-2) Rel Index Troponin I (0.000-0.034) ng/mL Total Protein (6.3-8.2) g/dL Albumin (3.5-5.0) g/dL Urine Color Urine Appearance (Clear) Urine pH (5.0-8.0) Ur Specific [place] (1.001-1.035) Urine Protein (Negative) Urine Glucose (UA) (Negative) Urine Ketones (Negative) Urine Blood (Negative) Urine Nitrite (Negative) Urine Bilirubin (Negative) Urine Urobilinogen (<2.0) mg/dL Ur Leukocyte Esterase (Negative) Urine RBC (0-5) /hpf Urine WBC (0-5) /hpf Ur Squamous Epith Cells (0-4) /hpf Urine Bacteria (None) /hpf Disposition Clinical Impression: Leukocytosis, Elevated troponin, Lactic acidosis, Renal insufficiency, Generalized weakness Disposition: ADMITTED IP TO THIS HOSP Is patient prescribed a controlled substance at d/c from ED?: No Time of Disposition: 13:54
[2017-08-11 12:40] LABS: INR 1.2 (<1.2); Partial Thromboplastin Time 26.1 sec (22.0-30.0); Prothrombin Time 11.6 sec (9.0-12.0)
[2017-08-11 12:41] LABS: Calcium 8.8 mg/dL (8.4-10.2); Potassium 4.4 mmol/L (3.5-5.1); Total Bilirubin 0.7 mg/dL (0.2-1.3); Total Protein 6.4 g/dL (6.3-8.2)
[2017-08-11 12:43] LABS: Basophils % (A) 0 %; Eosinophils # (A) 0.1 k/uL (0-0.7); Eosinophils % (A) 0 %; HCT 51.2 % (39.0-53.0); HGB 16.7 gm/dL (13.0-17.5); Lymphocytes # (A) 1.2 k/uL (1.0-4.8); Lymphocytes % (A) 4 %; MCHC 32.6 g/dL (31.0-37.0); MCV 85.9 fL (80.0-100.0); Mean Platelet Volume 8.5; Monocytes # (A) 1.5 k/uL (0-1.0); Monocytes % (A) 5 %; Neutrophils # (A) 26.2 k/uL (1.3-7.7); Neutrophils % (A) 90 %; Platelet Count 212 k/uL (150-450); RBC 5.96 m/uL (4.30-5.90)
[2017-08-11 12:47] LABS: Appearance,Urine Clear (Clear); Bacteria,Urine Rare /hpf; Bilirubin,Urine Negative (Negative); Blood,Urine Moderate (Negative); Color,Urine Yellow; Glucose,Urine (UA) Negative (Negative); Ketones,Urine Negative (Negative); Leukocyte Esterase,Urine Negative (Negative); Nitrite,Urine Negative (Negative); PH, Urine 6.5 (5.0-8.0); Protein,Urine 4+ (Negative); RBC,Urine 4 /hpf (0-5); Squamous Epithelial Cell,Urine 6 /hpf (0-4); Urobilinogen,Urine <2.0 mg/dL (<2.0); WBC,Urine 6 /hpf (0-5)
[2017-08-11 12:50] LABS: WBC 29.3 k/uL (3.8-10.6)
[2017-08-11] MEDS ORDERED: SODIUM CHLORIDE 0.9% 1,000 ML IV ONE (12:55)
[2017-08-11] MEDS ORDERED: hydrALAZINE HCL 20 MG/ML 1 ML VIAL IVP STA (12:55)
[2017-08-11] MEDS ORDERED: cefTRIAXone 2,000 MG in SODIUM CHLORIDE 0.9% 100 ML IVPB STA (12:55)
[2017-08-11] MEDS ORDERED: cefTRIAXone IN SWFI 2,000 MG/20 ML SYRINGE IVP STA (12:57)
--- NOTE | 2017-08-11 13:02 | XR ---
EXAMINATION TYPE: XR chest 2V DATE OF EXAM: 08/11/2017 COMPARISON: 06/15/2016 HISTORY: Shortness of breath TECHNIQUE: Frontal and lateral views of the chest are obtained. FINDINGS: Scattered senescent parenchymal changes noted. Chronic increased density right medial lung base. Vagu e nodularity seen within the right lung. The left lung is stable and clear at this time. Heart size is stable. Mediastinal structures are stable and grossly unremarkable. No evidence for hilar prominence. Degenerative changes dorsal spine. IMPRESSION: 1. Chronic increased density right medial lung base. Vague nodularity seen within the right lung.
[2017-08-11 13:23] LABS: Troponin I 0.158 ng/mL (0.000-0.034)
[2017-08-11] MEDS: PIPERACILLIN-TAZOBACTAM 3.375 GM in DEXTROSE/WATER 1 50ML.BAG IVPB SCH (14:35)
[2017-08-11 16:36] LABS: Glucose,Whole Blood 70 mg/dL (75-99)
[2017-08-11] MEDS ORDERED: NITROGLYCERIN SL TABS 0.4 MG TAB SUBLINGUAL PRN (18:06)
--- NOTE | 2017-08-11 18:09 | P.HPIM ---
History of Present Illness H&P Date: 08/11/17 This is a 71-year-old male one of Dr. Lucas Gallo's patient with past medical history of hypertension, hyperlipidemia, diabetes, COPD, ,CHF , alcoholism and worsening heart failure who had open heart surgery with the CABG 2015 ended up having multiple complications and the multiple rehospitalization for worsening shortness of breath, A. fib and other complication. He was last hospitalized on 05/06/2016 at which time he was here for bradycardia and beta kojo was discontinued. He was sent in after neighbor found him in bed very weak, apparently patient has not gotten out of bed for 2 days. The neighbor checks on him on a daily basis, however on her return trip, he hasn't moved out of bed and has soiled himself stooled himself, and hasn't eaten for approximately 48 hours. Patient has difficulty in getting out of bed difficulty ambulating, his son who normally is sees constantly complaining at home, apparently admitted hospital hence no one was caring for the patient except for a visit from a neighbor. Patient has had cough, some wheezing, stiffness of the joint, difficulty in ambulating, patient hasn't had his medications for 2 days as well Emergency room Review of Systems Constitutional: Reports as per HPI, Reports chills, Reports poor appetite, Reports weight loss, Denies anorexia, Denies chronic headaches, Denies chronic pain, Denies daytime sleepiness, Denies fatigue, Denies fever, Denies lethargy, Denies malaise, Denies night sweats, Denies sweats, Denies weakness, Denies weight gain Ears, nose, mouth and throat: Reports as per HPI, Denies ant. neck pain, Denies bleeding gums, Denies dental pain, Denies dysphagia, Denies epistaxis, Denies headache, Denies hoarseness, Denies mouth pain, Denies nasal congestion, Denies nasal discharge, Denies neck fullness/pressure, Denies neck lump, Denies nose pain, Denies odynophagia, Denies post-nasal drip, Denies sinus pain, Denies sinus pressure, Denies swelling in mouth, Denies swelling in throat, Denies sore throat, Denies vertigo, Denies voice changes Cardiovascular: Reports as per HPI, Reports shortness of breath, Denies chest pain, Denies claudication, Denies decreased exercise tolerance, Denies dyspnea on exertion, Denies edema, Denies high blood pressure, Denies irregular heart beat, Denies leg edema, Denies lightheadedness, Denies orthopnea, Denies palpitations, Denies paroxysmal nocturnal dyspnea, Denies phlebitis, Denies rapid heart beat, Denies syncope Respiratory: Reports congestion, Reports cough, Reports cough with sputum, Reports dyspnea Gastrointestinal: Reports as per HPI, Denies abdominal pain, Denies belching, Denies bloating, Denies BRBPR, Denies change in bowel habits, Denies coffee ground emesis, Denies constipation, Denies diarrhea, Denies dyspepsia, Denies early satiety, Denies excessive gas, Denies heartburn, Denies hematemesis, Denies hematochezia, Denies indigestion, Denies jaundice, Denies lactose intolerance, Denies loss of appetite, Denies melena, Denies nausea, Denies vomiting Genitourinary: Reports as per HPI, Denies decreased libido, Denies difficulties fathering child, Denies discharge, Denies dysuria, Denies erectile dysfunction, Denies flank pain, Denies genital pain, Denies genital sores, Denies hematuria, Denies impotence, Denies incontinence, Denies kidney stones, Denies nocturia, Denies polyuria, Denies testicular lump, Denies testicular pain, Denies urinary frequency, Denies urinary hesitancy, Denies urinary retention Musculoskeletal: Reports as per HPI, Reports limitation of motion, Reports muscle weakness, Denies arm numbness/tingling, Denies atrophy, Denies fractures , Denies frequent falls, Denies gait dysfunction, Denies hot joints, Denies leg numbness/tingling, Denies loss of height, Denies low back pain, Denies morning stiffness, Denies muscle cramps, Denies myalgias, Denies neck pain, Denies neck stiffness, Denies prior amputations, Denies redness of joints, Denies shooting arm pain, Denies shooting leg pain Integumentary: Reports as per HPI, Denies acne, Denies boils, Denies brittle nails, Denies change in hair/nails, Denies color changes, Denies darkening of skin, Denies depigmentation, Denies dryness, Denies foot/leg ulcers, Denies growths, Denies hirsutism, Denies lesions, Denies onychomycosis, Denies pruritus , Denies rash, Denies sores, Denies striae, Denies unusual bruising, Denies wounds Neurological: Reports as per HPI, Reports balance difficulties, Reports gait dysfunction, Reports motor disturbance, Denies aphasia, Denies ataxia, Denies burning pain, Denies change in mentation, Denies change in smell/taste, Denies change in speech, Denies confusion, Denies convulsions, Denies double vision, Denies head injury, Denies headaches, Denies hearing difficulties, Denies lack of coordination, Denies loss of vision, Denies memory loss, Denies migraines, Denies numbness, Denies paralysis, Denies paresthesias, Denies seizures, Denies sensory deficit, Denies spasticity, Denies syncope, Denies tic, Denies tingling , Denies transient paralysis, Denies tremors, Denies vertigo, Denies weakness, Denies visual changes Psychiatric: Reports as per HPI, Denies anhedonia, Denies anxiety, Denies anxiety attacks, Denies change in appetite, Denies change in libido, Denies change in sleep habits, Denies confusion, Denies depression, Denies difficulty concentrating, Denies disorientation, Denies hallucinations, Denies hopelessness , Denies hypersomnia, Denies insomnia, Denies irritability, Denies memory loss, Denies mood swings, Denies paranoia, Denies sadness/tearfulness, Denies sleep disturbances, Denies suicidal ideation Endocrine: Reports as per HPI, Denies cold intolerance, Denies deepening of the voice, Denies excessive sweating, Denies excessive thirst, Denies fatigue, Denies flushing, Denies heat intolerance, Denies high blood sugars, Denies increase in ring/shoe/hat size, Denies low blood sugars, Denies nocturia, Denies palpitations, Denies polydipsia, Denies polyphagia, Denies polyuria, Denies proptosis, Denies recent glucocorticoid use, Denies thyroid mass, Denies weight change Hematologic/Lymphatic: Reports as per HPI, Denies easy bleeding, Denies easy bruising, Denies lymphadenopathy, Denies lymphedema, Denies thrombophilia Allergic/Immunologic: Reports as per HPI, Denies allergic rhinitis, Denies anaphylaxis, Denies angioedema, Denies gluten intolerance, Denies persistent infections, Denies seasonal allergies, Denies urticaria, Denies wheezing Past Medical History Past Medical History: Atrial Fibrillation, Coronary Artery Disease (CAD), Heart Failure, COPD, Diabetes Mellitus, GERD/Reflux, Hyperlipidemia, Hypertension, Myocardial Infarction (non Q-wave), Musculoskeletal Disorder, Osteoarthritis (OA ), Pneumonia, Prostate Disorder, Seizure Disorder, Sleep Apnea/CPAP/BIPAP Additional Past Medical History / Comment(s): Other HX: TIA possible CVA pt us unsure, Chronic UTI'S,. CATARACTS bilaterally, GOUT,DOES'NT USE CPAP AT. HOME ,KIDNEY STONE, BULGING DISCS. home o2 3l nc at all times [place] 11/2013, arthiritis . Last Myocardial Infarction Date:: 2013 History of Any Multi-Drug Resistant Organisms: C-DIFF Date of last positivie culture/infection: None MDRO Source:: None Past Surgical History: Bladder Surgery, Coronary Bypass/CABG, Heart Catheterization Additional Past Surgical History / Comment(s): Cardiac cath with PTCA 12/14/13, CABG 5 vessek 01/02/14, BENIGN TUMOR ON SALIVARY GLANDS (RT) REMOVED, HAD A SUPRA PUBIC CATH IN PAST THAT GOT INFECTED ENDED UP AT [facility] [place]. Past Anesthesia/Blood Transfusion Reactions: No Reported Reaction Past Psychological History: Depression Additional Psychological History / Comment(s): Pt lives alone denies outside services.stated left him around mar 2014. He is on home O2 at 3L/NC all of the time. Pt is independent in his ADL's. He uses a cane most of the time. He cooks his. own food. . Pt has had home care in the past but none now. He also has friends that help him and family calls to check on him as well. [facility] has been helping him. Smoking Status: Former smoker Past Alcohol Use History: None Reported Additional Past Alcohol Use History / Comment(s): STARTED SMOKING AT AGE 19 QUIT 2012 3PPD FOR 10 YEARS THEN DECREASED TO 2 PPD UNTIL HE QUIT. 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, Past Drug Use History: None Reported - Past Family History Father Family Medical History: Cancer, Dementia, Hyperlipidemia, Hypertension, Myocardial Infarction (MT) Additional Family Medical History / Comment(s): AT AGE 78- Mother Family Medical History: No Reported History, Coronary Artery Disease (CAD), Dementia, Myocardial Infarction (MT) Additional Family Medical History / Comment(s): AT AGE 86 Brother(s) Family Medical History: No Reported History Sister(s) Family Medical History: No Reported History, Rheumatoid Arthritis (RA) Son(s) Family Medical History: No Reported History Daughter(s) Family Medical History: No Reported History Medications and Allergies Home Medications Medication Instructions Recorded Confirmed Type Baclofen 10 mg PO HS 04/26/14 08/11/17 History Isosorbide Mononitrate ER [Imdur] 30 mg PO DAILY 04/26/14 08/11/17 History levETIRAcetam [Keppra] 750 mg PO BID 04/26/14 08/11/17 History Atorvastatin [Lipitor] 40 mg PO HS 06/14/14 08/11/17 History Furosemide [Lasix] 40 mg PO BID tab 12/23/14 08/11/17 Rx Tamsulosin HCl [Flomax] 0.4 mg PO BID #0 12/24/14 08/11/17 Rx ALPRAZolam [Xanax] 0.25 mg PO HS 11/20/15 08/11/17 History Lisinopril [Zestril] 20 mg PO DAILY 04/18/16 08/11/17 History Omeprazole [PriLOSEC] 20 mg PO BID 04/18/16 08/11/17 History PARoxetine HCL [Paxil] 40 mg PO DAILY 04/18/16 08/11/17 History hydrALAZINE HCL [Apresoline] 75 mg PO BID 04/18/16 08/11/17 History Potassium Chloride ER [K-Dur 20] 20 meq PO DAILY 05/05/16 08/11/17 History Montelukast [Singulair] 10 mg PO DAILY 06/16/16 08/11/17 History Albuterol Inhaler [Ventolin Hfa 2 puff INHALATION RT-QID PRN 08/11/17 08/11/17 History Inhaler] Budesonide [Pulmicort] 0.5 mg INHALATION RT-BID 08/11/17 08/11/17 History HYDROcodone/APAP 5-325MG [Pearl 1 tab PO TID 08/11/17 08/11/17 History 5-325] Insulin Glargine [Lantus] 20 unit SQ HS 08/11/17 08/11/17 History Ipratropium-Albuterol Nebulize 3 ml INHALATION RT-QID 08/11/17 08/11/17 History [Duoneb 0.5 mg-3 mg/3 ml Soln] Nitroglycerin Sl Tabs [Nitrostat] 0.4 mg SUBLINGUAL Q5M PRN 08/11/17 08/11/17 History amLODIPine [Norvasc] 5 mg PO DAILY 08/11/17 08/11/17 History Allergies Allergy/AdvReac Type Severity Reaction Status Date / Time adhesive AdvReac Unknown Verified 08/11/17 12:23 influenza virus vaccine, AdvReac Nausea & Verified 08/11/17 12:23 specific Vomiting & [Influenza Virus Diarrhea Vacc,Specific] Physical Exam Vitals: Vital Signs Temp Pulse Pulse Resp BP BP Pulse Ox 08/11/17 16:00 98.1 F 16 129/67 97 08/11/17 15:35 94 18 08/11/17 15:00 96 18 169/84 97 08/11/17 14:00 93 16 173/79 98 08/11/17 13:00 97 16 194/85 99 08/11/17 12:52 88 18 228/98 96 08/11/17 11:30 97.8 F 84 16 205/153 94 L Intake and Output 08/11/17 08/11/17 08/11/17 06:59 14:59 22:59 Intake Total 2049 Output Total 900 Balance 1150 Intake: Intake, IV Titration 2049 Amount Piperacillin-Tazobactam 3 50 .375 gm In Dextrose/Water 1 50ml.bag @ 12.5 mls/hr IVPB Q8HR [facility] Rx#: [id number] Sodium Chloride 0.9% 1, 1000 000 ml @ 999 mls/hr IV . Q1H1M ONE Rx#:[id number] Sodium Chloride 0.9% 1, 1000 000 ml @ 999 mls/hr IV . Q1H1M STA Rx#:[id number] Output: Urine 900 Uretheral ([place]) 900 Other: Voiding Method Indwelling Catheter Weight 65.771 kg - Constitutional General appearance: cooperative, no acute distress, thin - EENT Eyes: anicteric sclerae, EOMI, PERRLA, dentition normal ENT: hard of hearing, NA/AT, normal oropharynx - Neck Neck: no lymphadenopathy, normal ROM, no other, no rigidity, no stridor, no thyromegaly - Respiratory Respiratory: bilateral: CTA, diminished, negative: dullness, rales, rhonchi, wheezing, prolonged expiration - Cardiovascular Rhythm: regular Heart sounds: normal: S1, S2 - Gastrointestinal General gastrointestinal: normal bowel sounds, soft - Integumentary Stage I decubitus ulcer sacrum Integumentary: decreased turgor, normal - Neurologic Neurologic: CNII-XII intact - Musculoskeletal Musculoskeletal: generalized weakness, strength equal bilaterally - Psychiatric Psychiatric: A&O x's 3, appropriate affect, intact judgment & insight Results CBC & Chem 7: 08/11/17 11:36 08/11/17 11:36 Labs: Abnormal Lab Results - Last 24 Hours (Table) 08/11/17 08/11/17 08/11/17 Range/Units 11:36 11:36 11:36 WBC 29.3 H* (3.8-10.6) k/uL RBC 5.96 H (4.30-5.90) m/uL Neutrophils # 26.2 H (1.3-7.7) k/uL Monocytes # 1.5 H (0-1.0) k/uL INR (<1.2) Sodium 146 H (137-145) mmol/L BUN 53 H (9-20) mg/dL Creatinine 2.50 H (0.66-1.25) mg/dL POC Glucose (mg/dL) (75-99) mg/dL Plasma Lactic Acid Pedrito (0.7-2.0) mmol/L ALT 20 L (21-72) U/L Alkaline Phosphatase 147 H (38-126) U/L Total Creatine Kinase 596 H (55-170) U/L CK-MB (CK-2) 5.0 H* (0.0-2.4) ng/mL Troponin I 0.158 H* (0.000-0.034) ng/mL Albumin 3.0 L (3.5-5.0) g/dL Urine Protein (Negative) Urine Blood (Negative) Urine WBC (0-5) /hpf Ur Squamous Epith Cells (0-4) /hpf Urine Bacteria (None) /hpf 08/11/17 08/11/17 08/11/17 Range/Units 11:36 11:36 12:17 WBC (3.8-10.6) k/uL RBC (4.30-5.90) m/uL Neutrophils # (1.3-7.7) k/uL Monocytes # (0-1.0) k/uL INR 1.2 H (<1.2) Sodium (137-145) mmol/L BUN (9-20) mg/dL Creatinine (0.66-1.25) mg/dL POC Glucose (mg/dL) (75-99) mg/dL Plasma Lactic Acid Pedrito 2.2 H* (0.7-2.0) mmol/L ALT (21-72) U/L Alkaline Phosphatase (38-126) U/L Total Creatine Kinase (55-170) U/L CK-MB (CK-2) (0.0-2.4) ng/mL Troponin I (0.000-0.034) ng/mL Albumin (3.5-5.0) g/dL Urine Protein 4+ H (Negative) Urine Blood Moderate H (Negative) Urine WBC 6 H (0-5) /hpf Ur Squamous Epith Cells 6 H (0-4) /hpf Urine Bacteria Rare H (None) /hpf 08/11/17 Range/Units 16:34 WBC (3.8-10.6) k/uL RBC (4.30-5.90) m/uL Neutrophils # (1.3-7.7) k/uL Monocytes # (0-1.0) k/uL INR (<1.2) Sodium (137-145) mmol/L BUN (9-20) mg/dL Creatinine (0.66-1.25) mg/dL POC Glucose (mg/dL) 70 L (75-99) mg/dL Plasma Lactic Acid Pedrito (0.7-2.0) mmol/L ALT (21-72) U/L Alkaline Phosphatase (38-126) U/L Total Creatine Kinase (55-170) U/L CK-MB (CK-2) (0.0-2.4) ng/mL Troponin I (0.000-0.034) ng/mL Albumin (3.5-5.0) g/dL Urine Protein (Negative) Urine Blood (Negative) Urine WBC (0-5) /hpf Ur Squamous Epith Cells (0-4) /hpf Urine Bacteria (None) /hpf Thrombosis Risk Factor Assmnt - DVT/VTE Prophylaxis DVT/VTE Prophylaxis: Pharmacologic Prophylaxis ordered - Choose All That Apply Any of the Below Risk Factors Present?: Yes Each Factor Represents 1 point: Abnormal pulmonary function (COPD) Other Risk Factors: Yes Each Risk Factor Represents 2 Points: Age 61-74 years Other congenital or acquired thrombophilia - If yes, enter type in comment: No Thrombosis Risk Factor Assessment Total Risk Factor Score: 3 Thrombosis Risk Factor Assessment Level: Moderate Risk Assessment and Plan Plan: 1. metabolic encephalopathy with SIRS leukemoid rxn, sepsis is entertained primary source not yet identified most likely primary is lung , aspiration pneumonia is differential vs community acquired pneumonia. rocephenin Patient was started on IV Rocephin with cultures to be obtained blood in urine. Most likely secondary to myoglobin, urine RBC 4 urine WBC 6 2. Elevated troponin, unknown significance at this time, possibly related to SIRS, etiology is consulted, troponin to be monitored, echocardiogram 3. Arrhythmia history with prior Nonsustained ventricular tachycardia on 2015 H and was seen by cardiology echocardiogramJuly 2016 showed atrial fibrillation with small pericardial effusion noted ejection fraction 45-50% inferolateral hypokinesis with palpation of LA size over 40. Electrolyte management is optimized 4. history bilateral hydronephrosis mild, improved from last ultrasoundhistory Phimosis with urinary retention resolved monitor for urinary retention continue tamsulosin 4. CAD post CABG. continue aspirin 81 mg orally once every day, 5. diabetes mellitus type II: Has been on Lantus at 20 units at bedtime along with pre-meal however with the sugars being low, and Lantus on hold , NovoLog sliding scale, current sugars are low 6. hypertensive cardiovascular disease. Continue patient on metoprolol 12.5 mg orally twice every day, lisinopril 20 mg milligrams daily, isorbide 30 mg daily, amlodipine 5 mg daily hydralazine 50 mg 3 times a day 7 hyperlipidemia: On Lipitor 40 mg orally once every day. 8 A. fib. Resume the patient Coumadin 7.5 mg daily iNRs to be checked 9. Chronic systolic heart failure. Continue Imdur 30 mg orally once every day , hydralazine 50 mg orally3 times every day, lisinopril 20 mg orally a day, metoprolol 12.5 mg orally twice every day, Norvasc 5 mg daily.Lasix 40 mg twice a day 10. depression: Has been on Prozac 20 mg daily.Xanax at bedtime 11 seizure: Has been on Keppra 750 g twice a day with no new seizure activity. 12 BPH: Continue patient on Flomax 0.4 mg daily. Monitor for urinary retention , check for postvoid residual symptoms have resolved 13 severe GERD: Will add Protonix 40 mg daily\ 14. Rhabdomyolysis, hold Lipitor for a few days until CPK would subside 14. Proteinuria 14 history of left Armas's policy improved symptoms last admission October 2015 15 Sacral decubitus stage I secondary to prolonged immobilization , overlay mattress and frequent turning 16. Discharge planning, skilled ECF, secondary to multiple comorbidities and poor coping skills at home secondary to difficulty in ambulating 17. Hepatitis A exposure, son, current, patient will be screened for hepatitis A as well
[2017-08-11] MEDS: SODIUM CHLORIDE 0.9% 1,000 ML IV SCH (18:37)
[2017-08-11] MEDS: PANTOPRAZOLE 40 MG TABLET PO SCH (18:37)
[2017-08-11] MEDS: ENOXAPARIN 30 MG/0.3 ML SYRINGE SQ SCH (18:37)
[2017-08-11] MEDS: IPRATROPIUM-ALBUTEROL 3 ML NEB INHALATION SCH (20:00)
[2017-08-11] MEDS: BUDESONIDE 0.5 MG/2 ML NEBU INHALATION SCH (20:03)
[2017-08-11] MEDS: ALPRAZolam 0.25 MG TAB PO SCH (20:26)
[2017-08-11] MEDS: FUROSEMIDE 40 MG TAB PO SCH (20:27)
[2017-08-11] MEDS: TAMSULOSIN 0.4 MG CAP.ER.24H PO SCH (20:27)
[2017-08-11] MEDS: hydrALAZINE HCL 25 MG TAB PO SCH (20:27)
[2017-08-11] MEDS: BACLOFEN 10 MG TAB PO SCH (20:27)
[2017-08-11 20:41] LABS: Glucose,Whole Blood 157 mg/dL (75-99)
[2017-08-11] MEDS: HYDROcodone/APAP 5-325MG 1 EACH TAB PO SCH (23:55)
[2017-08-12] MEDS: PIPERACILLIN-TAZOBACTAM 3.375 GM in DEXTROSE/WATER 1 50ML.BAG IVPB SCH ×3 (00:44→16:46)
[2017-08-12 01:03] LABS: Hepatitis A Antibody IgM Non-Reactive (Non-Reactive); Hepatitis B Core IgM Non-Reactive (Non-Reactive)
[2017-08-12 05:47] LABS: Glucose,Whole Blood 142 mg/dL (75-99)
[2017-08-12] MEDS: PANTOPRAZOLE 40 MG TABLET PO SCH ×2 (06:25→16:46)
[2017-08-12 06:42] LABS: Basophils % (A) 0 %; Eosinophils # (A) 0.1 k/uL (0-0.7); Eosinophils % (A) 0 %; HCT 39.6 % (39.0-53.0); Lymphocytes # (A) 1.6 k/uL (1.0-4.8); Lymphocytes % (A) 8 %; MCH 27.3 pg (25.0-35.0); MCHC 31.7 g/dL (31.0-37.0); MCV 86.2 fL (80.0-100.0); Mean Platelet Volume 7.6; Monocytes # (A) 1.2 k/uL (0-1.0); Monocytes % (A) 6 %; Neutrophils # (A) 16.8 k/uL (1.3-7.7); Neutrophils % (A) 84 %; Platelet Count 176 k/uL (150-450); RDW 13.8 % (11.5-15.5); WBC 20.1 k/uL (3.8-10.6)
[2017-08-12 06:51] LABS: HGB 12.6 gm/dL (13.0-17.5)
[2017-08-12] MEDS: BUDESONIDE 0.5 MG/2 ML NEBU INHALATION SCH ×2 (07:03→20:03)
[2017-08-12] MEDS: IPRATROPIUM-ALBUTEROL 3 ML NEB INHALATION SCH ×4 (07:03→20:03)
[2017-08-12 07:08] LABS: Calcium 7.5 mg/dL (8.4-10.2); Potassium 3.8 mmol/L (3.5-5.1); Total Bilirubin 0.4 mg/dL (0.2-1.3); Total Protein 4.9 g/dL (6.3-8.2)
[2017-08-12] MEDS: SODIUM CHLORIDE 0.9% 1,000 ML IV SCH ×2 (09:01→21:30)
[2017-08-12] MEDS: hydrALAZINE HCL 25 MG TAB PO SCH ×2 (09:02→21:27)
[2017-08-12] MEDS: amLODIPine 5 MG TAB PO SCH (09:02)
[2017-08-12] MEDS: ISOSORBIDE MONONITRATE ER 30 MG TAB.ER.24H PO SCH (09:02)
[2017-08-12] MEDS: TAMSULOSIN 0.4 MG CAP.ER.24H PO SCH ×2 (09:02→21:29)
[2017-08-12] MEDS: POTASSIUM CHLORIDE ER 20 MEQ TAB.ER PO SCH (09:03)
[2017-08-12] MEDS: FUROSEMIDE 40 MG TAB PO SCH (09:03)
[2017-08-12] MEDS: LISINOPRIL 20 MG TAB PO SCH (09:03)
[2017-08-12] MEDS: MONTELUKAST 10 MG TAB PO SCH (09:03)
[2017-08-12] MEDS: PARoxetine 20 MG TAB PO SCH (09:03)
[2017-08-12] MEDS: HYDROcodone/APAP 5-325MG 1 EACH TAB PO SCH ×3 (09:05→21:28)
[2017-08-12] MEDS: ACETAMINOPHEN TAB 325 MG TAB PO PRN ×2 (09:13→13:50)
--- NOTE | 2017-08-12 10:12 | ECHOF ---
Referral Reason:elevated troponins MEASUREMENTS -------- HEIGHT: 180.3 cm WEIGHT: 75.3 kg BP: 131/69 IVSd: 1.4 cm (0.6 - 1.1) LVIDd: 3.8 cm (3.9 - 5.3) LVPWd: 1.6 cm (0.6 - 1.1) IVSs: 1.9 cm LVIDs: 2.5 cm LVPWs: 1.9 cm LAESV Index (A-L): 43.60 ml/m Ao Diam: 3.0 cm (2.0 - 3.7) AV Cusp: 1.9 cm (1.5 - 2.6) LA Diam: 4.3 cm (2.7 - 3.8) MV EXCURSION: 22.256 mm (> 18.000) MV EF SLOPE: 61 mm/s (70 - 150) EPSS: 0.5 cm MV E Blayne: 0.81 m/s MV DecT: 122 ms MV A Blayne: 0.24 m/s MV E/A Ratio: 3.37 RAP: 5.00 mmHg RVSP: 28.81 mmHg FINDINGS -------- Sinus rhythm. This was a technically good study. The left ventricular size is normal. There is moderate concentric left ventricular hypertrophy. O verall left ventricular systolic function is low-normal with, an EF between 50 - 55 %. The right ventricle is normal in size and function. LA is severely dilated >40 ml/m2 RA appears enlarged. Aortic valve is trileaflet and is mildly thickened. The mitral valve leaflets are mildly thickened. Mild mitral annular calcification present. Mild m itral regurgitation is present. Mild tricuspid regurgitation present. The right ventricular systolic pressure, as measured by Doppl er, is 28.81mmHg. Pulmonic valve appears structurally normal. The aortic root size is normal. Normal inferior vena cava with normal inspiratory collapse consistent with estimated right atrial pre ssure of 5 mmHg. The pericardium is normal. CONCLUSIONS -------- 1. Sinus rhythm. 2. This was a technically good study. 3. The left ventricular size is normal. 4. There is moderate concentric left ventricular hypertrophy. 5. Overall left ventricular systolic function is low-normal with, an EF between 50 - 55 %. 6. The right ventricle is normal in size and function. 7. LA is severely dilated >40 ml/m2 8. RA appears enlarged. 9. Aortic valve is trileaflet and is mildly thickened. 10. The mitral valve leaflets are mildly thickened. 11. Mild mitral annular calcification present. 12. Mild mitral regurgitation is present. 13. Mild tricuspid regurgitation present. 14. The right ventricular systolic pressure, as measured by Doppler, is 28.81mmHg. 15. Pulmonic valve appears structurally normal. 16. The aortic root size is normal. 17. Normal inferior vena cava with normal inspiratory collapse consistent with estimated right atrial pressure of 5 mmHg. 18. The pericardium is normal. TV TECHNICIAN: Chanelle Kothari RDCS
[2017-08-12 11:48] LABS: Glucose,Whole Blood 146 mg/dL (75-99)
[2017-08-12] MEDS ORDERED: cefTRIAXone IN SWFI 1,000 MG/10 ML SYRINGE IVP SCH (13:00)
[2017-08-12] MEDS: ASPIRIN 81 MG PO SCH (13:51)
--- NOTE | 2017-08-12 14:05 | P.CRDCN ---
History of Present Illness Consult date: 08/12/17 Requesting physician: Ericka Thompson Reason for Consult (text): Elevated troponin Chief complaint: weakness, unable to move History of present illness: This is a frail 71-year-old gentleman with history of coronary artery disease, CABG, hypertension, hyperlipidemia, COPD, chronic atrial fibrillation, not currently anticoagulated, diabetes, prior [place], prostate disorder, UTIs and urinary retention. His son is his primary assembler molded frames but has been hospitalized and is currently in [facility]. Apparently the neighbor has been checking in on the patient and called EMS when he noticed the patient to be in the same position and chair as he was the day before and had urinated on himself in the chair. Patient says he was too weak to move. He denies any complaints of chest discomfort, palpitations, nausea or vomiting. He has not noticed a fever at home. Upon presentation patient and no was noted to have some urinary retention and a Gr[place] catheter was placed. EKG on admission showed atrial fibrillation with PVCs, couplets, diffuse ST-T wave abnormalities and evidence of prior inferior infarct. Chest x-ray showed chronic increased density right medial lung base and vague nodularity seen within the right lung. Cardiology was placed on consult to 2 elevation of troponins of 0.158 and 0.144. Laboratory values also showed elevated white count at 29,000, potassium of 3.8, magnesium 2.0 and elevated BUN/creatinine of 63 and 2.8. His baseline creatinine is around 1-1.2. Vital signs are stable with a temperature of 99.5 axillary this morning. He is in atrial fibrillation on the monitor with frequent ventricular ectopy with bigeminy and couplets. Upon examination, patient continues to complain of weakness. He is otherwise fairly comfortable but complains of some foot pain. He has no complaints of chest discomfort or shortness of breath and has no complaints of dizziness, lightheadedness, palpitations or syncope. Past Medical History Past Medical History: Atrial Fibrillation, Coronary Artery Disease (CAD), Heart Failure, COPD, Diabetes Mellitus, GERD/Reflux, Hyperlipidemia, Hypertension, Myocardial Infarction (non Q-wave), Musculoskeletal Disorder, Osteoarthritis (OA ), Pneumonia, Prostate Disorder, Seizure Disorder, Sleep Apnea/CPAP/BIPAP Additional Past Medical History / Comment(s): Other HX: TIA possible CVA pt us unsure, Chronic UTI'S,. CATARACTS bilaterally, GOUT,DOES'NT USE CPAP AT. HOME ,KIDNEY STONE, BULGING DISCS. home o2 3l nc at all times MO 11/2013, arthiritis . Last Myocardial Infarction Date:: 2013 History of Any Multi-Drug Resistant Organisms: C-DIFF Date of last positivie culture/infection: None MDRO Source:: None Past Surgical History: Bladder Surgery, Coronary Bypass/CABG, Heart Catheterization Additional Past Surgical History / Comment(s): Cardiac cath with PTCA 12/14/13, CABG 5 vessek 01/02/14, BENIGN TUMOR ON SALIVARY GLANDS (RT) REMOVED, HAD A SUPRA PUBIC CATH IN PAST THAT GOT INFECTED ENDED UP AT [facility]. Past Anesthesia/Blood Transfusion Reactions: No Reported Reaction Past Psychological History: Depression Additional Psychological History / Comment(s): Pt lives alone denies outside services.stated left him around mar 2014. He is on home O2 at 3L/NC all of the time. Pt is independent in his ADL's. He uses a cane most of the time. He cooks his. own food. . Pt has had home care in the past but none now. He also has friends that help him and family calls to check on him as well. Twin has been helping him. Smoking Status: Former smoker Past Alcohol Use History: None Reported Additional Past Alcohol Use History / Comment(s): STARTED SMOKING AT AGE 19 QUIT 2012 3PPD FOR 10 YEARS THEN DECREASED TO 2 PPD UNTIL HE QUIT. 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, Past Drug Use History: None Reported - Past Family History Father Family Medical History: Cancer, Dementia, Hyperlipidemia, Hypertension, Myocardial Infarction (MO) Additional Family Medical History / Comment(s): AT AGE 78- Mother Family Medical History: No Reported History, Coronary Artery Disease (CAD), Dementia, Myocardial Infarction (MO) Additional Family Medical History / Comment(s): AT AGE 86 Brother(s) Family Medical History: No Reported History Sister(s) Family Medical History: No Reported History, Rheumatoid Arthritis (RA) Son(s) Family Medical History: No Reported History Daughter(s) Family Medical History: No Reported History Medications and Allergies Home Medications Medication Instructions Recorded Confirmed Type Baclofen 10 mg PO HS 04/26/14 08/11/17 History Isosorbide Mononitrate ER [Imdur] 30 mg PO DAILY 04/26/14 08/11/17 History levETIRAcetam [Keppra] 750 mg PO BID 04/26/14 08/11/17 History Atorvastatin [Lipitor] 40 mg PO HS 06/14/14 08/11/17 History Furosemide [Lasix] 40 mg PO BID tab 12/23/14 08/11/17 Rx Tamsulosin HCl [Flomax] 0.4 mg PO BID #0 12/24/14 08/11/17 Rx ALPRAZolam [Xanax] 0.25 mg PO HS 11/20/15 08/11/17 History Lisinopril [Zestril] 20 mg PO DAILY 04/18/16 08/11/17 History Omeprazole [PriLOSEC] 20 mg PO BID 04/18/16 08/11/17 History PARoxetine HCL [Paxil] 40 mg PO DAILY 04/18/16 08/11/17 History hydrALAZINE HCL [Apresoline] 75 mg PO BID 04/18/16 08/11/17 History Potassium Chloride ER [K-Dur 20] 20 meq PO DAILY 05/05/16 08/11/17 History Montelukast [Singulair] 10 mg PO DAILY 06/16/16 08/11/17 History Albuterol Inhaler [Ventolin Hfa 2 puff INHALATION RT-QID PRN 08/11/17 08/11/17 History Inhaler] Budesonide [Pulmicort] 0.5 mg INHALATION RT-BID 08/11/17 08/11/17 History HYDROcodone/APAP 5-325MG [[place] 1 tab PO TID 08/11/17 08/11/17 History 5-325] Insulin Glargine [Lantus] 20 unit SQ HS 08/11/17 08/11/17 History Ipratropium-Albuterol Nebulize 3 ml INHALATION RT-QID 08/11/17 08/11/17 History [Duoneb 0.5 mg-3 mg/3 ml Soln] Nitroglycerin Sl Tabs [Nitrostat] 0.4 mg SUBLINGUAL Q5M PRN 08/11/17 08/11/17 History amLODIPine [Norvasc] 5 mg PO DAILY 08/11/17 08/11/17 History Allergies Allergy/AdvReac Type Severity Reaction Status Date / Time adhesive AdvReac Unknown Verified 08/11/17 12:23 influenza virus vaccine, AdvReac Nausea & Verified 08/11/17 12:23 specific Vomiting & [Influenza Virus Diarrhea Vacc,Specific] Physical Exam Vitals: Vital Signs Temp Pulse Pulse Pulse Resp BP BP 08/12/17 03:37 98 F 92 17 131/69 08/12/17 00:00 97.6 F 82 17 133/65 08/11/17 20:13 95 16 08/11/17 20:03 93 16 08/11/17 20:00 98 F 92 17 131/69 08/11/17 16:00 98.1 F 16 08/11/17 15:35 94 18 08/11/17 15:00 96 18 169/84 08/11/17 14:00 93 16 173/79 08/11/17 13:00 97 16 194/85 08/11/17 12:52 88 18 228/98 08/11/17 11:30 97.8 F 84 16 205/153 BP Pulse Ox 08/12/17 03:37 99 08/12/17 00:00 96 08/11/17 20:13 08/11/17 20:03 95 08/11/17 20:00 98 08/11/17 16:00 129/67 97 08/11/17 15:35 08/11/17 15:00 97 08/11/17 14:00 98 08/11/17 13:00 99 08/11/17 12:52 96 08/11/17 11:30 94 L Intake and Output 08/11/17 08/12/17 08/12/17 22:59 06:59 14:59 Intake Total 3975 600 Output Total 900 275 Balance 3075 325 Intake: Intake, IV Titration 2049 Amount Piperacillin-Tazobactam 3 50 .375 gm In Dextrose/Water 1 50ml.bag @ 12.5 mls/hr IVPB Q8HR ALMA ROSA Rx#: [id number] Sodium Chloride 0.9% 1, 1000 000 ml @ 999 mls/hr IV . Q1H1M ONE Rx#:[id number] Sodium Chloride 0.9% 1, 1000 000 ml @ 999 mls/hr IV . Q1H1M STA Rx#:[id number] Oral 1925 600 Output: Urine 900 275 Uretheral ([place]ullon) 900 275 Other: Voiding Method Indwelling Catheter Indwelling Catheter Weight 75.5 kg PHYSICAL EXAMINATION: HEENT: Head is atraumatic, normocephalic. Pupils equal, round. Neck is supple. There is no elevated jugular venous pressure. HEART EXAMINATION: Heart sounds regular, S1 and S2 with a systolic murmur. CHEST EXAMINATION: Lungs are clear to auscultation and precussion. No chest wall tenderness is noted on palpation or with deep breathing. ABDOMEN: Soft, nontender, thin. Bowel sounds are heard. No organomegaly noted. EXTREMITIES: 1+ peripheral pulses with no evidence of peripheral edema and no calf tenderness noted. NEUROLOGIC patient is awake, alert and oriented x2-3. . Results 08/12/17 06:15 08/12/17 06:15 Cardiac Enzymes 08/11/17 08/11/17 08/11/17 Range/Units 11:36 11:36 18:21 AST 50 (17-59) U/L CK-MB (CK-2) 5.0 H* (0.0-2.4) ng/mL Troponin I 0.158 H* 0.144 H* (0.000-0.034) ng/mL 08/12/17 Range/Units 06:15 AST 38 (17-59) U/L CK-MB (CK-2) (0.0-2.4) ng/mL Troponin I (0.000-0.034) ng/mL Coagulation 08/11/17 Range/Units 11:36 PT 11.6 (9.0-12.0) sec APTT 26.1 (22.0-30.0) sec CBC 08/11/17 08/12/17 Range/Units 11:36 06:15 WBC 29.3 H* 20.1 H (3.8-10.6) k/uL RBC 5.96 H 4.60 (4.30-5.90) m/uL Hgb 16.7 12.6 L D (13.0-17.5) gm/dL Hct 51.2 39.6 (39.0-53.0) % Plt Count 212 176 (150-450) k/uL Comprehensive Metabolic Panel 08/11/17 08/12/17 Range/Units 11:36 06:15 Sodium 146 H 140 (137-145) mmol/L Potassium 4.4 3.8 (3.5-5.1) mmol/L Chloride 107 107 (98-107) mmol/L Carbon Dioxide 23 21 L (22-30) mmol/L BUN 53 H 63 H (9-20) mg/dL Creatinine 2.50 H 2.80 H (0.66-1.25) mg/dL Glucose 79 135 H (74-99) mg/dL Calcium 8.8 7.5 L (8.4-10.2) mg/dL AST 50 38 (17-59) U/L ALT 20 L 20 L (21-72) U/L Alkaline Phosphatase 147 H 97 (38-126) U/L Total Protein 6.4 4.9 L (6.3-8.2) g/dL Albumin 3.0 L 2.0 L (3.5-5.0) g/dL Current Medications Generic Name Dose Route Start Last Admin Trade Name Freq PRN Reason Stop Dose Admin Acetaminophen 650 mg 08/12/17 09:09 08/12/17 09:13 Tylenol Tab PO 650 mg Q4HR PRN Administration Fever and/ or MILD Pain Hydrocodone Bitart/Acetaminophen 1 each 08/11/17 22:00 08/12/17 09:05 [place] 5-325 PO 1 each TID ALMA ROSA Administration Albuterol/Ipratropium 3 ml 08/11/17 20:00 08/12/17 07:03 Duoneb 0.5 Mg-3 Mg/3 Ml Soln INHALATION Not Given RT-QID ALMA ROAS Alprazolam 0.25 mg 08/11/17 21:00 08/11/17 20:26 Xanax PO 0.25 mg HS ALMA ROSA Administration Amlodipine Besylate 5 mg 08/12/17 09:00 08/12/17 09:02 Norvasc PO 5 mg DAILY ALMA ROSA Administration Baclofen 10 mg 08/11/17 21:00 08/11/17 20:27 Lioresal PO 10 mg HS ALMA ROSA Administration Budesonide 0.5 mg 08/11/17 20:00 08/12/17 07:03 Pulmicort INHALATION Not Given RT-BID ALMA ROSA Ceftriaxone Sodium 1,000 mg 08/12/17 13:00 Rocephin IVP Q24H ALMA ROSA Enoxaparin Sodium 30 mg 08/11/17 18:30 08/11/17 18:37 Lovenox SQ 30 mg DAILY@1800 ALMA ROSA Administration Furosemide 40 mg 08/11/17 21:00 08/12/17 09:03 Lasix PO 40 mg BID ALMA ROSA Administration Hydralazine HCl 75 mg 08/11/17 21:00 08/12/17 09:02 Apresoline PO 75 mg BID ALMA ROSA Administration Piperacillin/Tazobactam/ 50 mls @ 12.5 mls/hr 08/11/17 14:15 08/12/17 00:44 Dextrose 3.375 gm/ IV Solution IVPB 12.5 mls/hr Q8HR ALMA ROSA Administration Sodium Chloride 1,000 mls @ 75 mls/hr 08/11/17 18:15 08/12/17 09:01 Saline 0.9% IV 75 mls/hr .[id number] ALMA ROSA Administration Isosorbide Mononitrate 30 mg 08/12/17 09:00 08/12/17 09:02 Imdur PO 30 mg DAILY ALMA ROSA Administration Levetiracetam 750 mg 08/11/17 21:00 08/12/17 09:02 Keppra PO 750 mg BID ALMA ROSA Administration Lisinopril 20 mg 08/12/17 09:00 08/12/17 09:03 Zestril PO 20 mg DAILY ALMA ROSA Administration Montelukast Sodium 10 mg 08/12/17 09:00 08/12/17 09:03 Singulair PO 10 mg DAILY ALMA ROSA Administration Nitroglycerin 0.4 mg 08/11/17 18:06 Nitrostat SUBLINGUAL Q5M PRN Angina Pantoprazole Sodium 40 mg 08/11/17 18:30 08/12/17 06:25 Protonix PO Not Given AC-BID ALMA ROSA Paroxetine HCl 40 mg 08/12/17 09:00 08/12/17 09:03 Paxil PO 40 mg DAILY ALMA ROSA Administration Potassium Chloride 20 meq 08/12/17 09:00 08/12/17 09:03 K-Dur 20 PO 20 meq DAILY ALMA ROSA Administration Tamsulosin HCl 0.4 mg 08/11/17 21:00 08/12/17 09:02 Flomax PO 0.4 mg BID ALMA ROSA Administration Intake and Output 08/11/17 08/12/17 08/12/17 22:59 06:59 14:59 Intake Total 3975 600 Output Total 900 275 Balance 3075 325 Intake: Intake, IV Titration 2050 Amount Piperacillin-Tazobactam 3 50 .375 gm In Dextrose/Water 1 50ml.bag @ 12.5 mls/hr IVPB Q8HR ALMA ROSA Rx#: [id number] Sodium Chloride 0.9% 1, 1000 000 ml @ 999 mls/hr IV . Q1H1M ONE Rx#:[id number] Sodium Chloride 0.9% 1, 1000 000 ml @ 999 mls/hr IV . Q1H1M STA Rx#:[id number] Oral 1925 600 Output: Urine 900 275 Uretheral ([place]ullon) 900 275 Other: Voiding Method Indwelling Catheter Indwelling Catheter Weight 75.5 kg 08/12/17 06:15 08/12/17 06:15 Assessment and Plan Assessment: #1 sepsis with fever and leukocytosis #2 history of CAD with prior CABG #3 acute on chronic kidney failure #4 elevated troponins likely secondary to renal failure #5 chronic atrial fibrillation, not currently anticoagulated #6 frailty Plan: From cardiology 's perspective, we will obtain a 2-D echo with Doppler. We will refrain from starting beta kojo as patient has had symptomatic bradycardia in the past. We'll continue current medications. Add aspirin 81mg daily. Patient is likely no longer on coumadin due to risk of bleeding. We will check with family. We will continue to follow the patient provide further recommendations accordingly. [employer]ICER note has been reviewed, I agree with a documented findings and plan of care. Patient was seen and examined.
--- NOTE | 2017-08-12 15:42 | P.PN ---
Subjective Progress Note Date: 08/12/17 This is a 71-year-old male one of Dr. Lucas Gallo's patient with past medical history of hypertension, hyperlipidemia, diabetes, COPD, ,CHF , alcoholism and worsening heart failure who had open heart surgery with the CABG 2015 ended up having multiple complications and the multiple rehospitalization for worsening shortness of breath, A. fib and other complication. He was last hospitalized on 05/06/2016 at which time he was here for bradycardia and beta kojo was discontinued. He was sent in after neighbor found him in bed very weak, apparently patient has not gotten out of bed for 2 days. The neighbor checks on him on a daily basis, however on her return trip, he hasn't moved out of bed and has soiled himself stooled himself, and hasn't eaten for approximately 48 hours. Patient has difficulty in getting out of bed difficulty ambulating, his son who normally is sees constantly complaining at home, apparently admitted hospital hence no one was caring for the patient except for a visit from a neighbor. Patient has had cough, some wheezing, stiffness of the joint, difficulty in ambulating, patient hasn't had his medications for 2 days as well 08/12: Echocardiogram reveals EF of 50-55% with moderate concentric left ventricular hypertrophy, LA severely dilated at greater than 40, are appears enlarged, mild mitral calcification, mild mitral regurgitation, mild tricuspid regurgitation. Patient has been seen and evaluated by cardiology. Beta kojo was not started due to history of symptomatic bradycardia. Aspirin 81 mg was added. Patient no longer on Coumadin most likely due to risk of bleeding. White count is improved to 20.1. BUN is 63 and creatinine 2.8. TSH is 2.940. Patient is decreased mental status today. Staff was unable to feed him today. His blood pressure is stable. [place] will be changed to half a tablet which is 2.5 mg 3 times daily as needed. Keppra level will be checked in the morning as well as EEG ordered. Patient has been afebrile. PT has recommended subacute rehab. Objective - Vital Signs Vital signs: Vital Signs Temp 99.0 F 08/12/17 11:33 Pulse 90 08/12/17 11:34 Resp 18 08/12/17 11:34 BP 114/63 08/12/17 11:33 Pulse Ox 97 08/12/17 11:33 Intake & Output 08/11/17 08/12/17 08/12/17 18:59 06:59 18:59 Intake Total 2175 2400 Output Total 900 275 450 Balance 1275 2125 -450 Weight 65.771 kg 75.5 kg Intake: Intake, IV Titration 2049 Amount Piperacillin-Tazobactam 3 50 .375 gm In Dextrose/Water 1 50ml.bag @ 12.5 mls/hr IVPB Q8HR ALMA ROSA Rx#: [id number] Sodium Chloride 0.9% 1, 1000 000 ml @ 999 mls/hr IV . Q1H1M ONE Rx#:[id number] Sodium Chloride 0.9% 1, 1000 000 ml @ 999 mls/hr IV . Q1H1M STA Rx#:[id number] Oral 125 2400 Output: Urine 900 275 450 Uretheral ([place]) 900 275 450 Other: Voiding Method Indwelling Catheter Indwelling Catheter Indwelling Catheter - Exam General appearance: cooperative, no acute distress, thin - EENT Eyes: anicteric sclerae, EOMI, PERRLA, dentition normal ENT: hard of hearing, NA/AT, normal oropharynx - Neck Neck: no lymphadenopathy, normal ROM, no other, no rigidity, no stridor, no thyromegaly - Respiratory Respiratory: bilateral: CTA, diminished, negative: dullness, rales, rhonchi, wheezing, prolonged expiration - Cardiovascular Rhythm: regular Heart sounds: normal: S1, S2 - Gastrointestinal General gastrointestinal: normal bowel sounds, soft - Integumentary Stage I decubitus ulcer sacrum Integumentary: decreased turgor, normal - Neurologic Neurologic: CNII-XII intact - Musculoskeletal Musculoskeletal: generalized weakness, strength equal bilaterally - Psychiatric Psychiatric: A&O x's 1, no appropriate affect, no intact judgment & insight - Labs CBC & Chem 7: 08/12/17 06:15 08/12/17 06:15 Labs: Abnormal Lab Results - Last 24 Hours (Table) 08/11/17 08/11/17 08/11/17 Range/Units 11:36 11:36 11:36 WBC 29.3 H* (3.8-10.6) k/uL RBC 5.96 H (4.30-5.90) m/uL Hgb (13.0-17.5) gm/dL Neutrophils # 26.2 H (1.3-7.7) k/uL Monocytes # 1.5 H (0-1.0) k/uL INR (<1.2) Sodium 146 H (137-145) mmol/L Carbon Dioxide (22-30) mmol/L BUN 53 H (9-20) mg/dL Creatinine 2.50 H (0.66-1.25) mg/dL Glucose (74-99) mg/dL POC Glucose (mg/dL) (75-99) mg/dL Plasma Lactic Acid [place] (0.7-2.0) mmol/L Calcium (8.4-10.2) mg/dL ALT 20 L (21-72) U/L Alkaline Phosphatase 147 H (38-126) U/L Creatine Kinase (55-170) U/L Total Creatine Kinase 596 H (55-170) U/L CK-MB (CK-2) 5.0 H* (0.0-2.4) ng/mL Troponin I 0.158 H* (0.000-0.034) ng/mL Total Protein (6.3-8.2) g/dL Albumin 3.0 L (3.5-5.0) g/dL Urine Protein (Negative) Urine Blood (Negative) Urine WBC (0-5) /hpf Ur Squamous Epith Cells (0-4) /hpf Urine Bacteria (None) /hpf 08/11/17 08/11/17 08/11/17 Range/Units 11:36 11:36 12:17 WBC (3.8-10.6) k/uL RBC (4.30-5.90) m/uL Hgb (13.0-17.5) gm/dL Neutrophils # (1.3-7.7) k/uL Monocytes # (0-1.0) k/uL INR 1.2 H (<1.2) Sodium (137-145) mmol/L Carbon Dioxide (22-30) mmol/L BUN (9-20) mg/dL Creatinine (0.66-1.25) mg/dL Glucose (74-99) mg/dL POC Glucose (mg/dL) (75-99) mg/dL Plasma Lactic Acid [place] 2.2 H* (0.7-2.0) mmol/L Calcium (8.4-10.2) mg/dL ALT (21-72) U/L Alkaline Phosphatase (38-126) U/L Creatine Kinase (55-170) U/L Total Creatine Kinase (55-170) U/L CK-MB (CK-2) (0.0-2.4) ng/mL Troponin I (0.000-0.034) ng/mL Total Protein (6.3-8.2) g/dL Albumin (3.5-5.0) g/dL Urine Protein 4+ H (Negative) Urine Blood Moderate H (Negative) Urine WBC 6 H (0-5) /hpf Ur Squamous Epith Cells 6 H (0-4) /hpf Urine Bacteria Rare H (None) /hpf 08/11/17 08/11/17 08/11/17 Range/Units 16:34 18:21 20:38 WBC (3.8-10.6) k/uL RBC (4.30-5.90) m/uL Hgb (13.0-17.5) gm/dL Neutrophils # (1.3-7.7) k/uL Monocytes # (0-1.0) k/uL INR (<1.2) Sodium (137-145) mmol/L Carbon Dioxide (22-30) mmol/L BUN (9-20) mg/dL Creatinine (0.66-1.25) mg/dL Glucose (74-99) mg/dL POC Glucose (mg/dL) 70 L 157 H (75-99) mg/dL Plasma Lactic Acid [place] (0.7-2.0) mmol/L Calcium (8.4-10.2) mg/dL ALT (21-72) U/L Alkaline Phosphatase (38-126) U/L Creatine Kinase (55-170) U/L Total Creatine Kinase (55-170) U/L CK-MB (CK-2) (0.0-2.4) ng/mL Troponin I 0.144 H* (0.000-0.034) ng/mL Total Protein (6.3-8.2) g/dL Albumin (3.5-5.0) g/dL Urine Protein (Negative) Urine Blood (Negative) Urine WBC (0-5) /hpf Ur Squamous Epith Cells (0-4) /hpf Urine Bacteria (None) /hpf 08/12/17 08/12/17 08/12/17 Range/Units 05:36 06:15 06:15 WBC 20.1 H (3.8-10.6) k/uL RBC (4.30-5.90) m/uL Hgb 12.6 L D (13.0-17.5) gm/dL Neutrophils # 16.8 H (1.3-7.7) k/uL Monocytes # 1.2 H (0-1.0) k/uL INR (<1.2) Sodium (137-145) mmol/L Carbon Dioxide 21 L (22-30) mmol/L BUN 63 H (9-20) mg/dL Creatinine 2.80 H (0.66-1.25) mg/dL Glucose 135 H (74-99) mg/dL POC Glucose (mg/dL) 142 H (75-99) mg/dL Plasma Lactic Acid [place] (0.7-2.0) mmol/L Calcium 7.5 L (8.4-10.2) mg/dL ALT 20 L (21-72) U/L Alkaline Phosphatase (38-126) U/L Creatine Kinase 369 H (55-170) U/L Total Creatine Kinase (55-170) U/L CK-MB (CK-2) (0.0-2.4) ng/mL Troponin I (0.000-0.034) ng/mL Total Protein 4.9 L (6.3-8.2) g/dL Albumin 2.0 L (3.5-5.0) g/dL Urine Protein (Negative) Urine Blood (Negative) Urine WBC (0-5) /hpf Ur Squamous Epith Cells (0-4) /hpf Urine Bacteria (None) /hpf Microbiology - Last 24 Hours (Table) 08/11/17 18:41 Urine Culture - Preliminary Urine,Catheterized Assessment and Plan Plan: 1. Metabolic encephalopathy with SIRS leukemoid rxn, sepsis is entertained primary source not yet identified most likely primary is lung , aspiration pneumonia is differential vs community acquired pneumonia. Continue Zosyn with cultures to be obtained blood in urine. [place] decreased. Check Keppra level. 2. Elevated troponin, unknown significance at this time, possibly related to SIRS, etiology is consulted, troponin to be monitored, echocardiogram 3. Arrhythmia history with prior Nonsustained ventricular tachycardia on 2015 H and was seen by cardiology echocardiogramJuly 2016 showed atrial fibrillation with small pericardial effusion noted ejection fraction 45-50% inferolateral hypokinesis with palpation of LA size over 40. Electrolyte management is optimized 4. History bilateral hydronephrosis mild, improved from last ultrasoundhistory Phimosis with urinary retention resolved monitor for urinary retention continue tamsulosin 5. CAD post CABG. continue aspirin 81 mg orally once every day, 6. Diabetes mellitus type II: Has been on Lantus at 20 units at bedtime along with pre-meal however with the sugars being low, and Lantus on hold , NovoLog sliding scale, current sugars are low 7. Hypertensive cardiovascular disease. Continue lisinopril 20 mg mg daily, isorbide 30 mg daily, amlodipine 5 mg daily hydralazine 50 mg 3 times a day 8. Hyperlipidemia: On Lipitor 40 mg orally once every day. 9. Chronic A. fib. Patient is no longer on Coumadin. This may be related to risk of falls. 10. Chronic systolic heart failure. Continue Imdur 30 mg orally once every day , hydralazine 75 mg orally twice a day, lisinopril 20 mg a day, Norvasc 5 mg daily.Lasix 40 mg a day 11. Recurrent depression: Has been on Prozac 20 mg daily.Xanax at bedtime 12. Seizure history: Has been on Keppra 750 g twice a day with no new seizure activity. CHeck Keppra level 13. BPH: Continue patient on Flomax 0.4 mg daily. Monitor for urinary retention, check for postvoid residual symptoms have resolved 14. Severe GERD: Will add Protonix 40 mg daily\ 15. Rhabdomyolysis, hold Lipitor for a few days until CPK would subside 16. Proteinuria 17. History of left Armas's policy improved symptoms last admission October 2015 18. Sacral decubitus stage I secondary to prolonged immobilization , overlay mattress and frequent turning 19. Hepatitis A exposure, son, hepatitis panel is negative Discharge plan: Subacute rehab Impression and plan of care have been directed as dictated by the signing physician. Carly Greene nurse practitioner acting as scribe for signing physician. Impression and plan of care have been directed as dictated by the signing physician. Carly Greene nurse practitioner acting as scribe for signing physician.
[2017-08-12] MEDS: ENOXAPARIN 30 MG/0.3 ML SYRINGE SQ SCH (16:46)
[2017-08-12 16:47] LABS: Glucose,Whole Blood 163 mg/dL (75-99)
[2017-08-12] MEDS: INSULIN ASPART 100 UNIT/ML 1 ML 10 ML VIAL SQ SCH ×2 (16:56→21:27)
[2017-08-12] MEDS ORDERED: HEPATITIS A VIRUS VACCINE/PF 1ML SYRG IM ONE (17:37)
--- NOTE | 2017-08-12 19:14 | EEG ---
ELECTROENCEPHALOGRAM REPORT DATE OF SERVICE: 08/12/2017. REASON FOR TESTING: Altered mental status. DESCRIPTION OF THE PROCEDURE: This EEG was performed using a 21 channel digital electroencephalograph, following international 10-20 system. DESCRIPTION OF THE RECORDING: From the beginning of the tracing, with patient's eyes closed, the background rhythm was mostly consisting of 6 Hz theta frequency in the posterior occipital leads. No obvious asymmetry is seen. Occasional movement artifacts are seen. Photic stimulation was performed with no driving response seen. No pathological waves were elicited. Hyperventilation was not performed. The patient does reach stage II of sleep during the tracing and occasional sleep spindles are seen. Occasional phase reversals are seen. No generalized epileptiform discharges were noticed. His EKG lead showed an irregularly irregular rhythm with a normal rate. INTERPRETATION: This asleep and awake EEG is abnormal due to the presence of generalized slowing of the background rhythm, mostly in the theta range. This is consistent with mild encephalopathy. There was also recurrent episodes of phase reversals, consistent with a reduced seizure threshold. Clinical correlation is recommended. Of note, his EKG lead showed an irregularly irregular rhythm with a normal rate. MMODL / IJN: [id number] /
[2017-08-12 21:08] LABS: Glucose,Whole Blood 191 mg/dL (75-99)
[2017-08-12] MEDS: BACLOFEN 10 MG TAB PO SCH (21:29)
[2017-08-13] MEDS: PIPERACILLIN-TAZOBACTAM 3.375 GM in DEXTROSE/WATER 1 50ML.BAG IVPB SCH ×4 (00:30→23:29)
[2017-08-13] MEDS: ALPRAZolam 0.25 MG TAB PO SCH ×2 (00:47→21:46)
[2017-08-13 05:59] LABS: Glucose,Whole Blood 261 mg/dL (75-99)
[2017-08-13] MEDS: INSULIN ASPART 100 UNIT/ML 1 ML 10 ML VIAL SQ SCH ×4 (06:40→21:46)
[2017-08-13] MEDS: PANTOPRAZOLE 40 MG TABLET PO SCH ×2 (06:41→17:02)
[2017-08-13 07:07] LABS: Basophils % (A) 0 %; Eosinophils # (A) 0.2 k/uL (0-0.7); Eosinophils % (A) 2 %; HCT 37.7 % (39.0-53.0); HGB 11.9 gm/dL (13.0-17.5); Lymphocytes # (A) 1.1 k/uL (1.0-4.8); Lymphocytes % (A) 9 %; MCH 27.3 pg (25.0-35.0); MCHC 31.6 g/dL (31.0-37.0); MCV 86.7 fL (80.0-100.0); Mean Platelet Volume 7.8; Monocytes # (A) 0.8 k/uL (0-1.0); Monocytes % (A) 6 %; Neutrophils # (A) 10.6 k/uL (1.3-7.7); Neutrophils % (A) 82 %; Platelet Count 165 k/uL (150-450); RBC 4.35 m/uL (4.30-5.90); RDW 14.1 % (11.5-15.5)
[2017-08-13 07:36] LABS: Calcium 7.4 mg/dL (8.4-10.2); Potassium 3.9 mmol/L (3.5-5.1); Total Bilirubin 0.2 mg/dL (0.2-1.3); Total Protein 4.7 g/dL (6.3-8.2)
[2017-08-13] MEDS: BUDESONIDE 0.5 MG/2 ML NEBU INHALATION SCH ×2 (07:43→19:39)
[2017-08-13] MEDS: IPRATROPIUM-ALBUTEROL 3 ML NEB INHALATION SCH ×4 (07:43→19:39)
[2017-08-13] MEDS: LISINOPRIL 20 MG TAB PO SCH (08:50)
[2017-08-13] MEDS ORDERED: FUROSEMIDE 40 MG TAB PO SCH (09:00)
[2017-08-13] MEDS: amLODIPine 5 MG TAB PO SCH (09:01)
[2017-08-13] MEDS: hydrALAZINE HCL 25 MG TAB PO SCH ×2 (09:01→21:46)
[2017-08-13] MEDS: ISOSORBIDE MONONITRATE ER 30 MG TAB.ER.24H PO SCH (09:02)
[2017-08-13] MEDS: HYDROcodone/APAP 5-325MG 1 EACH TAB PO SCH ×3 (09:05→21:45)
[2017-08-13] MEDS: ASPIRIN 81 MG PO SCH (09:06)
[2017-08-13] MEDS: POTASSIUM CHLORIDE ER 20 MEQ TAB.ER PO SCH (09:07)
[2017-08-13] MEDS: PARoxetine 20 MG TAB PO SCH (09:07)
[2017-08-13] MEDS: TAMSULOSIN 0.4 MG CAP.ER.24H PO SCH ×2 (09:07→21:46)
[2017-08-13] MEDS: SODIUM CHLORIDE 0.9% 1,000 ML IV SCH (09:08)
[2017-08-13] MEDS: MONTELUKAST 10 MG TAB PO SCH (09:08)
--- NOTE | 2017-08-13 09:23 | P.NPCON ---
History of Present Illness - Reason for Consult acute renal failure - History of Present Illness Reason for consultation: Acute kidney injury and chronic kidney disease History of present illness: Patient is a 71-year-old male seen in renal consultation for acute kidney injury on chronic kidney disease. Patient's creatinine in May 2016 was near 1.2. This admission and was elevated at 2.5 and has been gradually getting worse and is up to 3.5 today. Patient presented to the hospital with generalized weakness. He was found sitting on a chair the entire day and also urinated on himself as he was too weak to use the bathroom. Currently the patient's resting in bed. He appears quite lethargic. He responds very minimally to verbal commands and therefore is hard to obtain history from at this time. He was noted to have urinary retention currently has a Grullon catheter in place. He is currently being treated for sepsis with likely source being pneumonia with IV antibiotics. He does have a long-standing history of diabetes mellitus. Echocardiogram revealed diastolic heart failure. His blood pressures up and quite labile ranging from systolic 100-200 this admission. He is nonoliguric. I don't see any NSAIDs and his home medications. He is receiving lisinopril as well as Lasix at this time. Vital signs are stable. General: The patient appeared well nourished and normally developed. HEENT: Head exam is unremarkable. Neck is without jugular venous distension. LUNGS: Lungs are clear to auscultation and percussion. Breath sounds decreased. HEART: Rate and Rhythm are regular. First and second heart sounds normal. No murmurs, rubs or gallops. ABDOMEN: Abdominal exam reveals normal bowel sounds. Non-tender and non- distended. No evidence of peritonitis. EXTREMITITES: No clubbing, cyanosis, or edema. Past Medical History Past Medical History: Atrial Fibrillation, Coronary Artery Disease (CAD), Heart Failure, COPD, Diabetes Mellitus, GERD/Reflux, Hyperlipidemia, Hypertension, Myocardial Infarction (non Q-wave), Musculoskeletal Disorder, Osteoarthritis (OA ), Pneumonia, Prostate Disorder, Seizure Disorder, Sleep Apnea/CPAP/BIPAP Additional Past Medical History / Comment(s): Other HX: TIA possible CVA pt us unsure, Chronic UTI'S,. CATARACTS bilaterally, GOUT,DOES'NT USE CPAP AT. HOME ,KIDNEY STONE, BULGING DISCS. home o2 3l nc at all times [place] 11/2013, arthiritis . Last Myocardial Infarction Date:: 2013 History of Any Multi-Drug Resistant Organisms: C-DIFF Date of last positivie culture/infection: None MDRO Source:: None Past Surgical History: Bladder Surgery, Coronary Bypass/CABG, Heart Catheterization Additional Past Surgical History / Comment(s): Cardiac cath with PTCA 12/14/13, CABG 5 vessek 01/02/14, BENIGN TUMOR ON SALIVARY GLANDS (RT) REMOVED, HAD A SUPRA PUBIC CATH IN PAST THAT GOT INFECTED ENDED UP AT [facility]. Past Anesthesia/Blood Transfusion Reactions: No Reported Reaction Past Psychological History: Depression Additional Psychological History / Comment(s): Pt lives alone denies outside services.stated left him around mar 2014. He is on home O2 at 3L/[place] all of the time. Pt is independent in his ADL's. He uses a cane most of the time. He cooks his. own food. . Pt has had home care in the past but none now. He also has friends that help him and family calls to check on him as well. Twin has been helping him. Smoking Status: Former smoker Past Alcohol Use History: None Reported Additional Past Alcohol Use History / Comment(s): STARTED SMOKING AT AGE 19 QUIT 2012 3PPD FOR 10 YEARS THEN DECREASED TO 2 PPD UNTIL HE QUIT. 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, Past Drug Use History: None Reported - Past Family History Father Family Medical History: Cancer, Dementia, Hyperlipidemia, Hypertension, Myocardial Infarction ([place]) Additional Family Medical History / Comment(s): AT AGE 78- Mother Family Medical History: No Reported History, Coronary Artery Disease (CAD), Dementia, Myocardial Infarction ([place]) Additional Family Medical History / Comment(s): AT AGE 86 Brother(s) Family Medical History: No Reported History Sister(s) Family Medical History: No Reported History, Rheumatoid Arthritis (RA) Son(s) Family Medical History: No Reported History Daughter(s) Family Medical History: No Reported History Medications and Allergies Home Medications Medication Instructions Recorded Confirmed Type Baclofen 10 mg PO HS 04/26/14 08/11/17 History Isosorbide Mononitrate ER [Imdur] 30 mg PO DAILY 04/26/14 08/11/17 History levETIRAcetam [Keppra] 750 mg PO BID 04/26/14 08/11/17 History Atorvastatin [Lipitor] 40 mg PO HS 06/14/14 08/11/17 History Furosemide [Lasix] 40 mg PO BID tab 12/23/14 08/11/17 Rx Tamsulosin HCl [Flomax] 0.4 mg PO BID #0 12/24/14 08/11/17 Rx ALPRAZolam [Xanax] 0.25 mg PO HS 11/20/15 08/11/17 History Lisinopril [Zestril] 20 mg PO DAILY 04/18/16 08/11/17 History Omeprazole [PriLOSEC] 20 mg PO BID 04/18/16 08/11/17 History PARoxetine HCL [Paxil] 40 mg PO DAILY 04/18/16 08/11/17 History hydrALAZINE HCL [Apresoline] 75 mg PO BID 04/18/16 08/11/17 History Potassium Chloride ER [K-Dur 20] 20 meq PO DAILY 05/05/16 08/11/17 History Montelukast [Singulair] 10 mg PO DAILY 06/16/16 08/11/17 History Albuterol Inhaler [Ventolin Hfa 2 puff INHALATION RT-QID PRN 08/11/17 08/11/17 History Inhaler] Budesonide [Pulmicort] 0.5 mg INHALATION RT-BID 08/11/17 08/11/17 History HYDROcodone/APAP 5-325MG [[place] 1 tab PO TID 08/11/17 08/11/17 History 5-325] Insulin Glargine [Lantus] 20 unit SQ HS 08/11/17 08/11/17 History Ipratropium-Albuterol Nebulize 3 ml INHALATION RT-QID 08/11/17 08/11/17 History [Duoneb 0.5 mg-3 mg/3 ml Soln] Nitroglycerin Sl Tabs [Nitrostat] 0.4 mg SUBLINGUAL Q5M PRN 08/11/17 08/11/17 History amLODIPine [Norvasc] 5 mg PO DAILY 08/11/17 08/11/17 History Allergies Allergy/AdvReac Type Severity Reaction Status Date / Time adhesive AdvReac Unknown Verified 08/11/17 12:23 influenza virus vaccine, AdvReac Nausea & Verified 08/11/17 12:23 specific Vomiting & [Influenza Virus Diarrhea Vacc,Specific] Physical Exam Vitals: Vital Signs Temp Pulse Pulse Pulse Resp BP Pulse Ox 08/13/17 07:55 60 08/13/17 07:43 64 08/13/17 04:30 97.0 F L 81 18 123/63 98 08/13/17 00:00 97.1 F L 77 18 112/48 97 08/12/17 20:50 96.6 F L 91 18 110/64 98 08/12/17 20:19 100 08/12/17 20:06 100 08/12/17 16:54 96.9 F L 71 16 100/54 99 08/12/17 15:44 90 18 08/12/17 12:07 98.9 F 08/12/17 11:34 90 18 08/12/17 11:33 99.0 F 90 18 114/63 97 08/12/17 11:05 95 08/12/17 10:51 94 08/12/17 09:23 99.5 F 96 18 146/82 96 08/12/17 09:21 17 Intake and Output 08/12/17 08/13/17 08/13/17 22:59 06:59 14:59 Intake Total 100 Output Total 150 425 Balance -50 -425 Intake: Oral 100 Output: Urine 150 425 Uretheral (Grullon) 150 Other: Voiding Method Indwelling Catheter Indwelling Catheter Weight 77.5 kg Results - Lab Results Most recent lab results Calcium 7.4 mg/dL (8.4-10.2) L 08/13/17 06:42 Magnesium 1.9 mg/dL (1.6-2.3) 08/12/17 06:15 08/13/17 06:42 08/13/17 06:42 Assessment and Plan Plan: Assessment: #1. Nonoliguric acute kidney injury secondary to ATN secondary to sepsis and hemodynamic instability. Further worsened with the use of diuretics and STACEY inhibitor. Creatinine is 2.5 on admission and is up at 3.5 today. #2. 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 #3. Urinary retention status post Grullon catheter placement. #4. Hypertension with chronic kidney disease. Blood pressures have been quite labile this admission. Better controlled today. #5. Insulin-dependent diabetes mellitus. #6. Sepsis with likely source being pneumonia. Maintain on IV antibiotics. #7. History of coronary artery disease status post CABG. #8. History of atrial fibrillation. Cardiology following. #9. Protein calorie malnutrition. #10. Diastolic CHF. Currently compensated. #11. Metabolic acidosis secondary to acute kidney injury. Improved. Plan: Continue normal saline at 75 mL an hour. Hold lisinopril and Lasix for now. Hold antihypertensives for systolic blood pressure less than 120. Maintain Grullon catheter. Continue to monitor renal function and urine output. Repeat electrolytes in the morning. No urgent need for renal replacement therapy at this time. Follow-up cultures. Check renal uls. Thank you for the consultation. I will continue to follow the patient with you during his hospital stay.
--- NOTE | 2017-08-13 10:10 | US ---
EXAMINATION TYPE: US kidneys/renal and bladder DATE OF EXAM: 08/13/2017 COMPARISON: Previous study dated 12/23/2014. CLINICAL HISTORY: darling. EXAM MEASUREMENTS: Right Kidney: 11.5 x 5.3 x 5.7 cm Left Kidney: 12.3 x 5.7 x 5.5 cm exam limited by portable exam and patient immobility. Right Kidney: No hydronephrosis or masses seen Left Kidney: No hydronephrosis or masses seen Bladder: not seen, patient has catheter Bilateral Jets seen: not seen, patient has catheter IMPRESSION: LIMITED BUT OTHERWISE NORMAL EXAMINATION.
[2017-08-13] MEDS ORDERED: CEFUROXIME 250 MG TAB PO SCH (10:11)
--- NOTE | 2017-08-13 10:21 | P.PN ---
Subjective Progress Note Date: 08/13/17 Principal diagnosis: Altered mental status Patient improved slightly yesterday evening where he was able to tolerate his dinner and he ate 80% of his dinner. Patient today is still lethargic but open his eyes to voice command following simple commands like moving his extremities up and down Objective - Vital Signs Vital signs: Vital Signs Temp 97.0 F L 08/13/17 09:11 Pulse 73 08/13/17 09:11 Resp 16 08/13/17 09:11 BP 110/62 08/13/17 09:11 Pulse Ox 99 08/13/17 09:11 Intake & Output 08/12/17 08/13/17 08/13/17 18:59 06:59 18:59 Intake Total 1130 100 Output Total 600 425 Balance 530 -325 Weight 77.5 kg Intake: Intake, IV Titration 950 Amount Piperacillin-Tazobactam 3 50 .375 gm In Dextrose/Water 1 50ml.bag @ 12.5 mls/hr IVPB Q8HR [facility] Rx#: [id number] Sodium Chloride 0.9% 1, 900 000 ml @ 75 mls/hr IV . [id number] [facility] Rx#:[id number] Oral 180 100 Output: Urine 600 425 Uretheral (Grullon) 600 Other: Voiding Method Indwelling Catheter Indwelling Catheter Indwelling Catheter - Exam Gen.: in stated age, no acute distress, lethargic Heart: Normal S1-S2 Lungs: Clear to auscultation bilaterally Abdomen: Soft, no tenderness, positive bowel sounds in all 4 quadrant no guarding or rebound Skin: No new rash Psych: Alert and oriented 3 Neuro: No focal deficit - Labs CBC & Chem 7: 08/13/17 06:42 08/13/17 06:42 Labs: Abnormal Lab Results - Last 24 Hours (Table) 08/11/17 08/12/17 08/12/17 Range/Units 18:21 11:45 16:45 WBC (3.8-10.6) k/uL Hgb (13.0-17.5) gm/dL Hct (39.0-53.0) % Neutrophils # (1.3-7.7) k/uL BUN (9-20) mg/dL Creatinine (0.66-1.25) mg/dL Glucose (74-99) mg/dL POC Glucose (mg/dL) 146 H 163 H (75-99) mg/dL Calcium (8.4-10.2) mg/dL ALT (21-72) U/L Total Protein (6.3-8.2) g/dL Albumin (3.5-5.0) g/dL Vitamin B12 2690.0 H (200.0-944.0) pg/mL 08/12/17 08/13/17 08/13/17 Range/Units 21:04 05:55 06:42 WBC 13.0 H (3.8-10.6) k/uL Hgb 11.9 L (13.0-17.5) gm/dL Hct 37.7 L (39.0-53.0) % Neutrophils # 10.6 H (1.3-7.7) k/uL BUN (9-20) mg/dL Creatinine (0.66-1.25) mg/dL Glucose (74-99) mg/dL POC Glucose (mg/dL) 191 H 261 H (75-99) mg/dL Calcium (8.4-10.2) mg/dL ALT (21-72) U/L Total Protein (6.3-8.2) g/dL Albumin (3.5-5.0) g/dL Vitamin B12 (200.0-944.0) pg/mL 08/13/17 Range/Units 06:42 WBC (3.8-10.6) k/uL Hgb (13.0-17.5) gm/dL Hct (39.0-53.0) % Neutrophils # (1.3-7.7) k/uL BUN 64 H (9-20) mg/dL Creatinine 3.55 H (0.66-1.25) mg/dL Glucose 268 H (74-99) mg/dL POC Glucose (mg/dL) (75-99) mg/dL Calcium 7.4 L (8.4-10.2) mg/dL ALT 18 L (21-72) U/L Total Protein 4.7 L (6.3-8.2) g/dL Albumin 2.0 L (3.5-5.0) g/dL Vitamin B12 (200.0-944.0) pg/mL Microbiology - Last 24 Hours (Table) 08/11/17 18:41 Urine Culture - Final Urine,Catheterized 08/11/17 11:35 Blood Culture - Preliminary Blood No Growth after 24 hours Assessment and Plan Plan: 1. Acute encephalopathy. Likely secondary to dehydration. Etiology still unclear 100% but I would like to continue with gentle hydration, monitor his kidney function closely and follow-up on his vital signs. We will continue with heating and refrigeration inspector continue antibiotics during this hospital stay and monitor blood cultures. Urine culture came back negative. 2. Acute kidney injury. Likely ATN. Continue with fluid resuscitation as above and follow up with nephrology recommendation. 3. Slight elevation in troponin. We will continue monitoring and continue cardio protective medication. 4. Chronic kidney disease. We would continue monitoring avoid nephrotoxic medication area 5. Leukocytosis. Improved from prior reading. Could be reactive. We'll continue monitoring. 6. Atrial fibrillation. Heart rate is controlled he did Discharge planning based on clinical progress
[2017-08-13 11:15] LABS: Hemoglobin A1C 8.4 % (4.0-6.0)
[2017-08-13 11:53] LABS: Glucose,Whole Blood 163 mg/dL (75-99)
--- NOTE | 2017-08-13 12:21 | PN ---
PROGRESS NOTE Mr. Hdez is a 71-year-old male with a history of atrial fibrillation, history of coronary artery disease, status post coronary artery bypass grafting, hypertension, who presented with decreased mental status and progressive fatigue. He was noted to be in worsening renal failure and probably dehydrated. He is a little bit more awake and alert today. He had an echocardiogram that revealed an overall preserved systolic function with no significant valvular disease. He continues to be on amlodipine 5 mg daily, aspirin once a day, hydralazine 75 mg twice a day, isosorbide mononitrate 30 mg daily, Flomax and antibiotics. PHYSICAL EXAMINATION: Blood pressure 110/60 with a heart rate in the 70s. LUNGS: Clear. HEART: Irregularly irregular. S1, S2. No S3. No rub. ABDOMEN: Soft, nontender. EXTREMITIES: No edema. LAB DATA: BUN and creatinine 64 and 3.55. Potassium 3.9. Hemoglobin of 11.9, white blood cells of 13,000. That has improved compared to the admission numbers. IMPRESSION: 1. Progressive fatigue and weakness with evidence of dehydration and infection. 2. Status post coronary artery bypass grafting. 3. Atrial fibrillation, not anticoagulated. Patient had increased risk of bleeding and falls, according to the notes. 4. History of hypertension. 5. Renal failure. RECOMMENDATION: From the cardiac standpoint, I will stop his amlodipine. His blood pressure is on the lower side. I will follow his renal function closely. Depending on his progress, further recommendations will be made. MMODL / IJN: [id number] /
[2017-08-13 16:46] LABS: Glucose,Whole Blood 190 mg/dL (75-99)
[2017-08-13] MEDS: ENOXAPARIN 30 MG/0.3 ML SYRINGE SQ SCH (17:02)
[2017-08-13 21:00] LABS: Glucose,Whole Blood 173 mg/dL (75-99)
[2017-08-13] MEDS: BACLOFEN 10 MG TAB PO SCH (21:46)
[2017-08-14 06:08] LABS: Glucose,Whole Blood 136 mg/dL (75-99)
[2017-08-14] MEDS: SODIUM CHLORIDE 0.9% 1,000 ML IV SCH ×2 (06:25→12:26)
[2017-08-14] MEDS: INSULIN ASPART 100 UNIT/ML 1 ML 10 ML VIAL SQ SCH ×4 (06:26→21:32)
[2017-08-14] MEDS: PANTOPRAZOLE 40 MG TABLET PO SCH ×2 (06:26→17:17)
[2017-08-14 06:29] LABS: Basophils % (A) 0 %; Eosinophils # (A) 0.3 k/uL (0-0.7); Eosinophils % (A) 3 %; HCT 36.7 % (39.0-53.0); HGB 11.9 gm/dL (13.0-17.5); Lymphocytes % (A) 9 %; MCH 28.4 pg (25.0-35.0); MCHC 32.5 g/dL (31.0-37.0); MCV 87.4 fL (80.0-100.0); Mean Platelet Volume 7.9; Monocytes # (A) 0.7 k/uL (0-1.0); Monocytes % (A) 6 %; Neutrophils # (A) 9.2 k/uL (1.3-7.7); Neutrophils % (A) 80 %; Platelet Count 156 k/uL (150-450); RDW 14.1 % (11.5-15.5); WBC 11.6 k/uL (3.8-10.6)
[2017-08-14 06:30] LABS: Calcium 7.5 mg/dL (8.4-10.2)
[2017-08-14] MEDS: IPRATROPIUM-ALBUTEROL 3 ML NEB INHALATION SCH ×4 (08:07→20:07)
[2017-08-14] MEDS: BUDESONIDE 0.5 MG/2 ML NEBU INHALATION SCH ×2 (08:07→20:07)
--- NOTE | 2017-08-14 08:19 | P.PN ---
Subjective Patient is seen in follow-up for acute kidney injury. His creatinine in May 2016 was near 1.2. This admission his creatinine was 2.5 and peaked at 3.5 as of August 13. Lisinopril and diuretics were discontinued. Creatinine is 3.2 today. He is nonoliguric. He has a Grullon catheter in place for urinary retention. He is more awake and alert today. Hemodynamically stable. Denies vomiting or diarrhea. Vital signs are stable. General: The patient appeared well nourished and normally developed. HEENT: Head exam is unremarkable. Neck is without jugular venous distension. LUNGS: Lungs are clear to auscultation and percussion. Breath sounds decreased. HEART: Rate and Rhythm are regular. First and second heart sounds normal. No murmurs, rubs or gallops. ABDOMEN: Abdominal exam reveals normal bowel sounds. Non-tender and non- distended. No evidence of peritonitis. EXTREMITITES: No clubbing, cyanosis, or edema. Objective - Vital Signs Vital signs: Vital Signs Temp 96.6 F L 08/14/17 04:00 Pulse 76 08/14/17 08:07 Resp 18 08/14/17 04:00 BP 121/67 08/14/17 04:00 Pulse Ox 96 08/14/17 04:00 Intake & Output 08/13/17 08/14/17 08/14/17 18:59 06:59 18:59 Intake Total 1490 Output Total 300 400 Balance 1190 -400 Weight 77.2 kg Intake: Intake, IV Titration 950 Amount Piperacillin-Tazobactam 3 50 .375 gm In Dextrose/Water 1 50ml.bag @ 12.5 mls/hr IVPB Q8HR [facility] Rx#: [id number] Sodium Chloride 0.9% 1, 900 000 ml @ 75 mls/hr IV . [id number] [facility] Rx#:[id number] Oral 540 Output: Urine 300 400 Uretheral (Grullon) 300 Other: Voiding Method Indwelling Catheter Indwelling Catheter - Labs CBC & Chem 7: 08/14/17 05:42 08/14/17 05:42 Labs: Abnormal Lab Results - Last 24 Hours (Table) 08/13/17 08/13/17 08/13/17 Range/Units 11:47 16:44 20:58 WBC (3.8-10.6) k/uL RBC (4.30-5.90) m/uL Hgb (13.0-17.5) gm/dL Hct (39.0-53.0) % Neutrophils # (1.3-7.7) k/uL Chloride (98-107) mmol/L Carbon Dioxide (22-30) mmol/L BUN (9-20) mg/dL Creatinine (0.66-1.25) mg/dL Glucose (74-99) mg/dL POC Glucose (mg/dL) 163 H 190 H 173 H (75-99) mg/dL Calcium (8.4-10.2) mg/dL 08/14/17 08/14/17 08/14/17 Range/Units 05:42 05:42 06:07 WBC 11.6 H (3.8-10.6) k/uL RBC 4.20 L (4.30-5.90) m/uL Hgb 11.9 L (13.0-17.5) gm/dL Hct 36.7 L (39.0-53.0) % Neutrophils # 9.2 H (1.3-7.7) k/uL Chloride 108 H (98-107) mmol/L Carbon Dioxide 21 L (22-30) mmol/L BUN 59 H (9-20) mg/dL Creatinine 3.20 H (0.66-1.25) mg/dL Glucose 144 H (74-99) mg/dL POC Glucose (mg/dL) 136 H (75-99) mg/dL Calcium 7.5 L (8.4-10.2) mg/dL Microbiology - Last 24 Hours (Table) 08/11/17 11:35 Blood Culture - Preliminary Blood No Growth after 48 hours Assessment and Plan Plan: Assessment: #1. Nonoliguric acute kidney injury secondary to ATN secondary to sepsis and hemodynamic instability. Further worsened with the use of diuretics and STACEY inhibitor. Creatinine is 2.5 on admission and peaked at 3.5 on August 13. 3.2 today. No evidence of hydronephrosis noted on renal ultrasound. #2. 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 #3. Urinary retention status post Grullon catheter placement. #4. Hypertension with chronic kidney disease. Blood pressures have been quite labile this admission. Better controlled today. #5. Insulin-dependent diabetes mellitus. #6. Sepsis with likely source being pneumonia. Maintained on IV antibiotics. #7. History of coronary artery disease status post CABG. #8. History of atrial fibrillation. Cardiology following. #9. Protein calorie malnutrition. #10. Diastolic CHF. Currently compensated. #11. Metabolic acidosis secondary to acute kidney injury and IV fluids. Plan: Continue normal saline at 75 mL an hour. Hold lisinopril and Lasix for now. Hold antihypertensives for systolic blood pressure less than 120. Maintain Grullon catheter. Continue to monitor renal function and urine output. Repeat electrolytes in the morning. No urgent need for renal replacement therapy at this time. Follow-up cultures. Add oral sodium bicarbonate 650 mg twice daily.
[2017-08-14] MEDS: HYDROcodone/APAP 5-325MG 1 EACH TAB PO SCH ×3 (09:37→21:31)
[2017-08-14] MEDS: hydrALAZINE HCL 25 MG TAB PO SCH ×2 (09:38→21:06)
[2017-08-14] MEDS: PARoxetine 20 MG TAB PO SCH (09:38)
[2017-08-14] MEDS: ISOSORBIDE MONONITRATE ER 30 MG TAB.ER.24H PO SCH (09:38)
[2017-08-14] MEDS: MONTELUKAST 10 MG TAB PO SCH (09:38)
[2017-08-14] MEDS: ASPIRIN 81 MG PO SCH (09:39)
[2017-08-14] MEDS: TAMSULOSIN 0.4 MG CAP.ER.24H PO SCH ×2 (09:39→21:06)
[2017-08-14] MEDS: POTASSIUM CHLORIDE ER 20 MEQ TAB.ER PO SCH (09:39)
[2017-08-14] MEDS: SODIUM BICARBONATE TAB 650 MG TAB PO SCH ×2 (09:41→21:06)
[2017-08-14] MEDS: PIPERACILLIN-TAZOBACTAM 3.375 GM in DEXTROSE/WATER 1 50ML.BAG IVPB SCH ×3 (10:10→23:08)
[2017-08-14 11:36] LABS: Glucose,Whole Blood 178 mg/dL (75-99)
--- NOTE | 2017-08-14 11:53 | P.PN ---
Subjective Progress Note Date: 08/14/17 Principal diagnosis: Altered mental status Patient continued to have adequate urine output with a slight improvement in kidney function. Patient is improved from the mental status standpoint where he is more awake and following simple commands but looks lethargic overall. No major events reported by nursing staff Objective - Vital Signs Vital signs: Vital Signs Temp 97.1 F L 08/14/17 09:55 Pulse 76 08/14/17 11:40 Resp 16 08/14/17 09:57 BP 136/63 08/14/17 09:55 Pulse Ox 97 08/14/17 09:55 Intake & Output 08/13/17 08/14/17 08/14/17 18:59 06:59 18:59 Intake Total 1490 240 Output Total 300 400 Balance 1190 -400 240 Weight 77.2 kg Intake: Intake, IV Titration 950 Amount Piperacillin-Tazobactam 3 50 .375 gm In Dextrose/Water 1 50ml.bag @ 12.5 mls/hr IVPB Q8HR [facility] Rx#: [id number] Sodium Chloride 0.9% 1, 900 000 ml @ 75 mls/hr IV . [id number] [facility] Rx#:[id number] Oral 540 240 Output: Urine 300 400 Uretheral (Grullon) 300 Other: Voiding Method Indwelling Catheter Indwelling Catheter Indwelling Catheter - Exam Gen.: in stated age, no acute distress, lethargic Heart: Normal S1-S2 Lungs: Clear to auscultation bilaterally Abdomen: Soft, no tenderness, positive bowel sounds in all 4 quadrant no guarding or rebound Skin: No new rash Psych: Alert and oriented 3 Neuro: No focal deficit - Labs CBC & Chem 7: 08/14/17 05:42 08/14/17 05:42 Labs: Abnormal Lab Results - Last 24 Hours (Table) 08/13/17 08/13/17 08/13/17 Range/Units 11:47 16:44 20:58 WBC (3.8-10.6) k/uL RBC (4.30-5.90) m/uL Hgb (13.0-17.5) gm/dL Hct (39.0-53.0) % Neutrophils # (1.3-7.7) k/uL Chloride (98-107) mmol/L Carbon Dioxide (22-30) mmol/L BUN (9-20) mg/dL Creatinine (0.66-1.25) mg/dL Glucose (74-99) mg/dL POC Glucose (mg/dL) 163 H 190 H 173 H (75-99) mg/dL Calcium (8.4-10.2) mg/dL 08/14/17 08/14/17 08/14/17 Range/Units 05:42 05:42 06:07 WBC 11.6 H (3.8-10.6) k/uL RBC 4.20 L (4.30-5.90) m/uL Hgb 11.9 L (13.0-17.5) gm/dL Hct 36.7 L (39.0-53.0) % Neutrophils # 9.2 H (1.3-7.7) k/uL Chloride 108 H (98-107) mmol/L Carbon Dioxide 21 L (22-30) mmol/L BUN 59 H (9-20) mg/dL Creatinine 3.20 H (0.66-1.25) mg/dL Glucose 144 H (74-99) mg/dL POC Glucose (mg/dL) 136 H (75-99) mg/dL Calcium 7.5 L (8.4-10.2) mg/dL 08/14/17 Range/Units 11:33 WBC (3.8-10.6) k/uL RBC (4.30-5.90) m/uL Hgb (13.0-17.5) gm/dL Hct (39.0-53.0) % Neutrophils # (1.3-7.7) k/uL Chloride (98-107) mmol/L Carbon Dioxide (22-30) mmol/L BUN (9-20) mg/dL Creatinine (0.66-1.25) mg/dL Glucose (74-99) mg/dL POC Glucose (mg/dL) 178 H (75-99) mg/dL Calcium (8.4-10.2) mg/dL Microbiology - Last 24 Hours (Table) 08/11/17 11:35 Blood Culture - Preliminary Blood No Growth after 48 hours Assessment and Plan Plan: 1. Acute encephalopathy. Likely secondary to dehydration. Patient is responding well to fluid resuscitation and I would like to discontinue antibiotics at the time of the discharge continue with gentle hydration and encourage oral intake I discussed the plan of care with the nursing staff. 2. Acute kidney injury. Likely ATN. Continue with fluid resuscitation as above and follow up with nephrology recommendation. Discussed with balance clerk 3. Slight elevation in troponin. We will continue monitoring and continue cardio protective medication. Discussed with janitorial assistant 4. Chronic kidney disease. We would continue monitoring avoid nephrotoxic medication area 5. Leukocytosis. Improved from prior reading. Could be reactive. We'll continue monitoring. 6. Atrial fibrillation. Heart rate is controlled he did Discharge planning based on clinical progress in the morning based on physical and acute patient will therapy recommendation
--- NOTE | 2017-08-14 12:43 | PN ---
PROGRESS NOTE Mr. Hdez is a 71-year-old male with a history of coronary artery disease status post coronary artery bypass grafting, who presented with symptoms of decreased mental status and weakness and was noted to be dehydrated. He seems to be slightly more awake and alert today. Hemodynamically, he has continued to be stable. He denies any chest pain or palpitation. He denies any nausea. He continues to be at this time on aspirin 81 mg daily. Hydralazine 75 mg twice a day. Isosorbide mononitrate 30 mg daily. PHYSICAL EXAMINATION: Blood pressure 136/60 with a heart rate in the. LUNGS: Clear. Heart: Irregularly irregular rate and rhythm S1, S2. No S3. No rub. ABDOMEN: Soft, nontender. Extremities: No significant edema. LAB DATA: BUN and creatinine of 59 and 3.2. Potassium 4.0, hemoglobin 11.9. IMPRESSION: 1. Dehydration and change in mental status, improving. 2. Renal failure. 3. Status post coronary artery bypass grafting. 4. Hypertension. 5. Atrial fibrillation, not anticoagulated because of increased risk of bleeding. RECOMMENDATION: From the cardiac standpoint, we will continue present therapy. We will see him on an as-needed basis. Please feel free to call us for any questions. MMODL / IJN: [id number] /
[2017-08-14 16:52] LABS: Glucose,Whole Blood 154 mg/dL (75-99)
[2017-08-14] MEDS: ENOXAPARIN 30 MG/0.3 ML SYRINGE SQ SCH (17:16)
[2017-08-14] MEDS: BACLOFEN 10 MG TAB PO SCH (21:06)
[2017-08-14 21:20] LABS: Glucose,Whole Blood 198 mg/dL (75-99)
[2017-08-14] MEDS: ALPRAZolam 0.25 MG TAB PO SCH (21:31)
[2017-08-15 05:58] LABS: Glucose,Whole Blood 160 mg/dL (75-99)
[2017-08-15] MEDS: SODIUM CHLORIDE 0.9% 1,000 ML IV SCH ×2 (06:04→17:59)
[2017-08-15 06:51] LABS: Calcium 7.6 mg/dL (8.4-10.2); Potassium 4.2 mmol/L (3.5-5.1)
[2017-08-15] MEDS: INSULIN ASPART 100 UNIT/ML 1 ML 10 ML VIAL SQ SCH ×4 (08:34→21:29)
[2017-08-15] MEDS: IPRATROPIUM-ALBUTEROL 3 ML NEB INHALATION SCH ×4 (08:59→19:44)
[2017-08-15] MEDS: BUDESONIDE 0.5 MG/2 ML NEBU INHALATION SCH ×2 (08:59→19:43)
[2017-08-15] MEDS: HYDROcodone/APAP 5-325MG 1 EACH TAB PO SCH ×3 (10:33→22:04)
[2017-08-15] MEDS: PIPERACILLIN-TAZOBACTAM 3.375 GM in DEXTROSE/WATER 1 50ML.BAG IVPB SCH ×2 (10:33→17:58)
--- NOTE | 2017-08-15 10:41 | P.PN ---
Subjective Patient is seen in follow-up for acute kidney injury. His creatinine in May 2016 was near 1.2. This admission his creatinine was 2.5 and peaked at 3.5 as of August 13. Lisinopril and diuretics were discontinued. Creatinine did come down to 3.2 as of August 14 and is up to 3.33 today. He is nonoliguric. He has a Grullon catheter in place for urinary retention. Hemodynamically stable. Denies vomiting or diarrhea. Oral intake is poor. He is quite lethargic. Vital signs are stable. General: The patient appeared well nourished and normally developed. HEENT: Head exam is unremarkable. Neck is without jugular venous distension. LUNGS: Lungs are clear to auscultation and percussion. Breath sounds decreased. HEART: Rate and Rhythm are regular. First and second heart sounds normal. No murmurs, rubs or gallops. ABDOMEN: Abdominal exam reveals normal bowel sounds. Non-tender and non- distended. No evidence of peritonitis. EXTREMITITES: No clubbing, cyanosis, or edema. Objective - Vital Signs Vital signs: Vital Signs Temp 97.8 F 08/15/17 07:20 Pulse 86 08/15/17 09:13 Resp 16 08/15/17 07:20 BP 149/74 08/15/17 07:20 Pulse Ox 97 08/15/17 07:20 Intake & Output 08/14/17 08/15/17 08/15/17 18:59 06:59 18:59 Intake Total 680 1290 Output Total 280 150 Balance 400 1140 Weight 80 kg Intake: Intake, IV Titration 1250 Amount Piperacillin-Tazobactam 3 50 .375 gm In Dextrose/Water 1 50ml.bag @ 12.5 mls/hr IVPB Q8HR [facility] Rx#: [id number] Sodium Chloride 0.9% 1, 1200 000 ml @ 75 mls/hr IV . [id number] [facility] Rx#:[id number] Oral 680 40 Output: Urine 280 150 Other: Voiding Method Indwelling Catheter Indwelling Catheter # Voids 1 # Bowel Movements 0 - Labs CBC & Chem 7: 08/14/17 05:42 08/15/17 05:50 Labs: Abnormal Lab Results - Last 24 Hours (Table) 08/13/17 08/14/17 08/14/17 Range/Units 06:42 11:33 16:49 Chloride (98-107) mmol/L Carbon Dioxide (22-30) mmol/L BUN (9-20) mg/dL Creatinine (0.66-1.25) mg/dL Glucose (74-99) mg/dL POC Glucose (mg/dL) 178 H 154 H (75-99) mg/dL Hemoglobin A1c 8.4 H (4.0-6.0) % Calcium (8.4-10.2) mg/dL 08/14/17 08/15/17 08/15/17 Range/Units 21:19 05:50 05:52 Chloride 111 H (98-107) mmol/L Carbon Dioxide 21 L (22-30) mmol/L BUN 58 H (9-20) mg/dL Creatinine 3.33 H (0.66-1.25) mg/dL Glucose 122 H (74-99) mg/dL POC Glucose (mg/dL) 198 H 160 H (75-99) mg/dL Hemoglobin A1c (4.0-6.0) % Calcium 7.6 L (8.4-10.2) mg/dL Microbiology - Last 24 Hours (Table) 08/11/17 11:35 Blood Culture - Preliminary Blood No Growth after 72 hours Assessment and Plan Plan: Assessment: #1. Nonoliguric acute kidney injury secondary to ATN secondary to sepsis and hemodynamic instability. Further worsened with the use of diuretics and STACEY inhibitor. Creatinine is 2.5 on admission and peaked at 3.5 on August 13. It is 3.33 today. No evidence of hydronephrosis noted on renal ultrasound. #2. 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 #3. Urinary retention status post Grullon catheter placement. #4. Hypertension with chronic kidney disease. Blood pressures have been quite labile this admission. Better controlled today. #5. Insulin-dependent diabetes mellitus. #6. Sepsis with likely source being pneumonia. Maintained on IV antibiotics. #7. History of coronary artery disease status post CABG. #8. History of atrial fibrillation. Cardiology following. #9. Protein calorie malnutrition. #10. Diastolic CHF. Currently compensated. #11. Metabolic acidosis secondary to acute kidney injury and IV fluids. Plan: Continue normal saline at 75 mL an hour. Hold lisinopril and Lasix for now. Hold antihypertensives for systolic blood pressure less than 120. Maintain Grullon catheter. Continue to monitor renal function and urine output. Repeat electrolytes in the morning. No urgent need for renal replacement therapy at this time. Follow-up cultures. Maintain oral sodium bicarbonate 650 mg twice daily. Check serologies - hepatitis panel negative. Quantify proteinuria.
[2017-08-15 11:57] LABS: Appearance,Urine Turbid (Clear); Bilirubin,Urine Negative (Negative); Blood,Urine Small (Negative); Budding Yeast,Urine Many /hpf; Color,Urine Yellow; Glucose,Urine (UA) Negative (Negative); Ketones,Urine Negative (Negative); Leukocyte Esterase,Urine Large (Negative); Nitrite,Urine Negative (Negative); Protein,Urine 3+ (Negative); RBC,Urine 149 /hpf (0-5); Specific Gravity,Urine 1.016 (1.001-1.035); Urobilinogen,Urine <2.0 mg/dL (<2.0); WBC,Urine >182 /hpf (0-5)
--- NOTE | 2017-08-15 13:54 | P.PN ---
Subjective This is a 71-year-old male one of Dr. Lucas Gallo's patient with past medical history of hypertension, hyperlipidemia, diabetes, COPD, ,CHF , alcoholism and worsening heart failure who had open heart surgery with the CABG 2015 ended up having multiple complications and the multiple rehospitalization for worsening shortness of breath, A. fib and other complication. He was last hospitalized on 05/06/2016 at which time he was here for bradycardia and beta kojo was discontinued. He was sent in after neighbor found him in bed very weak, apparently patient has not gotten out of bed for 2 days. The neighbor checks on him on a daily basis, however on her return trip, he hasn't moved out of bed and has soiled himself stooled himself, and hasn't eaten for approximately 48 hours. Patient has difficulty in getting out of bed difficulty ambulating, his son who normally is sees constantly complaining at home, apparently admitted hospital hence no one was caring for the patient except for a visit from a neighbor. Patient has had cough, some wheezing, stiffness of the joint, difficulty in ambulating, patient hasn't had his medications for 2 days as well 08/12: Echocardiogram reveals EF of 50-55% with moderate concentric left ventricular hypertrophy, LA severely dilated at greater than 40, are appears enlarged, mild mitral calcification, mild mitral regurgitation, mild tricuspid regurgitation. Patient has been seen and evaluated by cardiology. Beta kojo was not started due to history of symptomatic bradycardia. Aspirin 81 mg was added. Patient no longer on Coumadin most likely due to risk of bleeding. White count is improved to 20.1. BUN is 63 and creatinine 2.8. TSH is 2.940. Patient is decreased mental status today. Staff was unable to feed him today. His blood pressure is stable. [place] will be changed to half a tablet which is 2.5 mg 3 times daily as needed. Keppra level will be checked in the morning as well as EEG ordered. Patient has been afebrile. PT has recommended subacute rehab. 08/13: Patient improved slightly yesterday evening where he was able to tolerate his dinner and he ate 80% of his dinner. Patient today is still lethargic but open his eyes to voice command following simple commands like moving his extremities up and down 08/14: Patient continued to have adequate urine output with a slight improvement in kidney function. Patient is improved from the mental status standpoint where he is more awake and following simple commands but looks lethargic overall. No major events reported by nursing staff 08/15: Patient was evaluated today, he underwent abdominal/bladder ultrasound, exam revealed limited exam but otherwise normal. Cardiology on consult, who discontinued his amlodipine do to hypotension. Blood pressure did improve to 132/67 today. Creatinine function slightly increased from previous, today 3.3, nephrology consult, recommends to continue with IV hydration, continue to hold lisinopril Lasix. Blood cultures show no growth to date. Objective - Vital Signs Vital signs: Vital Signs Temp 97.8 F 08/15/17 07:20 Pulse 86 08/15/17 09:13 Resp 16 08/15/17 07:20 BP 149/74 08/15/17 07:20 Pulse Ox 97 08/15/17 07:20 Intake & Output 08/14/17 08/15/17 08/15/17 18:59 06:59 18:59 Intake Total 680 1290 Output Total 280 150 Balance 400 1140 Weight 80 kg Intake: Intake, IV Titration 1250 Amount Piperacillin-Tazobactam 3 50 .375 gm In Dextrose/Water 1 50ml.bag @ 12.5 mls/hr IVPB Q8HR [facility] Rx#: [id number] Sodium Chloride 0.9% 1, 1200 000 ml @ 75 mls/hr IV . [id number] [facility] Rx#:[id number] Oral 680 40 Output: Urine 280 150 Other: Voiding Method Indwelling Catheter Indwelling Catheter # Voids 1 # Bowel Movements 0 - Exam - Exam General appearance: cooperative, no acute distress, thin - EENT Eyes: anicteric sclerae, EOMI, PERRLA, dentition normal ENT: hard of hearing, NA/AT, normal oropharynx - Neck Neck: no lymphadenopathy, normal ROM, no other, no rigidity, no stridor, no thyromegaly - Respiratory Respiratory: bilateral: CTA, diminished, negative: dullness, rales, rhonchi, wheezing, prolonged expiration - Cardiovascular Rhythm: regular Heart sounds: normal: S1, S2 - Gastrointestinal General gastrointestinal: normal bowel sounds, soft - Integumentary Stage I decubitus ulcer sacrum Integumentary: decreased turgor, normal - Neurologic Neurologic: CNII-XII intact - Musculoskeletal Musculoskeletal: generalized weakness, strength equal bilaterally - Psychiatric - Labs CBC & Chem 7: 08/14/17 05:42 08/15/17 05:50 Labs: Abnormal Lab Results - Last 24 Hours (Table) 08/13/17 08/14/17 08/14/17 Range/Units 06:42 11:33 16:49 Chloride (98-107) mmol/L Carbon Dioxide (22-30) mmol/L BUN (9-20) mg/dL Creatinine (0.66-1.25) mg/dL Glucose (74-99) mg/dL POC Glucose (mg/dL) 178 H 154 H (75-99) mg/dL Hemoglobin A1c 8.4 H (4.0-6.0) % Calcium (8.4-10.2) mg/dL 08/14/17 08/15/17 08/15/17 Range/Units 21:19 05:50 05:52 Chloride 111 H (98-107) mmol/L Carbon Dioxide 21 L (22-30) mmol/L BUN 58 H (9-20) mg/dL Creatinine 3.33 H (0.66-1.25) mg/dL Glucose 122 H (74-99) mg/dL POC Glucose (mg/dL) 198 H 160 H (75-99) mg/dL Hemoglobin A1c (4.0-6.0) % Calcium 7.6 L (8.4-10.2) mg/dL Microbiology - Last 24 Hours (Table) 08/11/17 11:35 Blood Culture - Preliminary Blood No Growth after 72 hours Assessment and Plan Plan: 1. Metabolic encephalopathy likely secondary to dehydration. Patient is responding well to fluid resuscitation will continue with gentle hydration and encourage oral intake, EEG shows mild encephalopathy. 2. Elevated troponin, cardiology on consult 3. Arrhythmia history with prior Nonsustained ventricular tachycardia on 2015 H and was seen by cardiology echocardiogram October 2015 showed atrial fibrillation with small pericardial effusion noted ejection fraction 45-50% inferolateral hypokinesis with palpation of LA size over 40. Electrolyte management is optimized 4. History bilateral hydronephrosis mild, improved from last ultrasoundhistory Phimosis with urinary retention resolved monitor for urinary retention continue tamsulosin 5. CAD post CABG. continue aspirin 81 mg orally once every day, 6. Diabetes mellitus type II: Has been on Lantus at 20 units at bedtime along with pre-meal however with the sugars being low, and Lantus on hold , NovoLog sliding scale, current sugars are low 7. Hypertensive cardiovascular disease. Continue lisinopril 20 mg mg daily, isorbide 30 mg daily, amlodipine 5 mg daily hydralazine 50 mg 3 times a day 8. Hyperlipidemia: On Lipitor 40 mg orally once every day. 9. Chronic A. fib. Patient is no longer on Coumadin. This may be related to risk of falls. 10. Chronic systolic heart failure. Continue Imdur 30 mg orally once every day , hydralazine 75 mg orally twice a day, lisinopril 20 mg a day, Norvasc 5 mg daily.Lasix 40 mg a day 11. Recurrent depression: Has been on Prozac 20 mg daily.Xanax at bedtime 12. Seizure history: Has been on Keppra 750 g twice a day with no new seizure activity. CHeck Keppra level 13. BPH: Continue patient on Flomax 0.4 mg daily. Monitor for urinary retention, check for postvoid residual symptoms have resolved 14. Severe GERD: Will add Protonix 40 mg daily\ 15. Rhabdomyolysis, hold Lipitor for a few days until CPK would subside 16. Proteinuria 17. History of left Armas's policy improved symptoms last admission October 2015 18. Sacral decubitus stage I secondary to prolonged immobilization , overlay mattress and frequent turning 19. Hepatitis A exposure, son, hepatitis panel is negative Discharge plan: Subacute rehab The above impression and plan of care have been discussed and directed by signing physician, patient was seen and evaluation by signing physician. Sarah Abbott nurse practitioner acting as scribe.
[2017-08-15] MEDS: ASPIRIN 81 MG PO SCH (13:58)
[2017-08-15] MEDS: PANTOPRAZOLE 40 MG TABLET PO SCH ×2 (13:58→17:42)
[2017-08-15] MEDS: hydrALAZINE HCL 25 MG TAB PO SCH ×2 (13:58→21:31)
[2017-08-15] MEDS: TAMSULOSIN 0.4 MG CAP.ER.24H PO SCH ×2 (13:59→21:43)
[2017-08-15] MEDS: POTASSIUM CHLORIDE ER 20 MEQ TAB.ER PO SCH (13:59)
[2017-08-15] MEDS: ISOSORBIDE MONONITRATE ER 30 MG TAB.ER.24H PO SCH (13:59)
[2017-08-15] MEDS: PARoxetine 20 MG TAB PO SCH (13:59)
[2017-08-15] MEDS: SODIUM BICARBONATE TAB 650 MG TAB PO SCH ×2 (13:59→21:30)
[2017-08-15] MEDS: MONTELUKAST 10 MG TAB PO SCH (13:59)
[2017-08-15 14:17] LABS: Glucose,Whole Blood 152 mg/dL (75-99)
[2017-08-15 17:41] LABS: Anti-DNA, DS unit <1.0 IU/mL; DNA Double-Stranded NEGATIVE (NEGATIVE)
[2017-08-15] MEDS: ENOXAPARIN 30 MG/0.3 ML SYRINGE SQ SCH (17:58)
[2017-08-15 18:59] LABS: Glucose,Whole Blood 157 mg/dL (75-99)
[2017-08-15 20:39] LABS: Glucose,Whole Blood 132 mg/dL (75-99)
[2017-08-15] MEDS: ALPRAZolam 0.25 MG TAB PO SCH (21:28)
[2017-08-15] MEDS: BACLOFEN 10 MG TAB PO SCH (21:31)
[2017-08-16] MEDS: PIPERACILLIN-TAZOBACTAM 3.375 GM in DEXTROSE/WATER 1 50ML.BAG IVPB SCH ×4 (01:06→23:50)
[2017-08-16] MEDS: SODIUM CHLORIDE 0.9% 1,000 ML IV SCH ×2 (01:29→17:15)
[2017-08-16] MEDS ORDERED: hydrALAZINE HCL 20 MG/ML 1 ML VIAL IVP STA (03:48)
[2017-08-16] MEDS: BUDESONIDE 0.5 MG/2 ML NEBU INHALATION SCH ×2 (06:51→19:52)
[2017-08-16] MEDS: IPRATROPIUM-ALBUTEROL 3 ML NEB INHALATION SCH ×4 (06:51→19:52)
[2017-08-16 07:15] LABS: Glucose,Whole Blood 141 mg/dL (75-99)
[2017-08-16] MEDS: ISOSORBIDE MONONITRATE ER 30 MG TAB.ER.24H PO SCH (08:13)
[2017-08-16] MEDS: PARoxetine 20 MG TAB PO SCH (08:15)
[2017-08-16] MEDS: PANTOPRAZOLE 40 MG TABLET PO SCH (08:15)
[2017-08-16] MEDS: HYDROcodone/APAP 5-325MG 1 EACH TAB PO SCH (08:16)
[2017-08-16] MEDS: POTASSIUM CHLORIDE ER 20 MEQ TAB.ER PO SCH (08:17)
[2017-08-16] MEDS: MONTELUKAST 10 MG TAB PO SCH (08:17)
[2017-08-16] MEDS: ASPIRIN 81 MG PO SCH (08:17)
[2017-08-16] MEDS: TAMSULOSIN 0.4 MG CAP.ER.24H PO SCH (08:17)
[2017-08-16] MEDS: SODIUM BICARBONATE TAB 650 MG TAB PO SCH ×3 (08:19→22:36)
[2017-08-16] MEDS ORDERED: hydrALAZINE HCL 50 MG TAB PO SCH (09:00)
[2017-08-16] MEDS: INSULIN ASPART 100 UNIT/ML 1 ML 10 ML VIAL SQ SCH ×4 (09:11→22:36)
--- NOTE | 2017-08-16 09:35 | P.PN ---
Subjective Patient is seen in follow-up for acute kidney injury. His creatinine in May 2016 was near 1.2. This admission his creatinine was 2.5 and peaked at 3.5 as of August 13. Lisinopril and diuretics were discontinued. Creatinine did come down to 3.2 as of August 14 and was 3.3 yesterday. He is nonoliguric. He has a Grullon catheter in place for urinary retention. The catheter was was noted to be leaking. Hemodynamically stable. Denies vomiting or diarrhea. Oral intake is poor. He is quite lethargic. Vital signs are stable. General: The patient appeared well nourished and normally developed. HEENT: Head exam is unremarkable. Neck is without jugular venous distension. LUNGS: Lungs are clear to auscultation and percussion. Breath sounds decreased. HEART: Rate and Rhythm are regular. First and second heart sounds normal. No murmurs, rubs or gallops. ABDOMEN: Abdominal exam reveals normal bowel sounds. Non-tender and non- distended. No evidence of peritonitis. EXTREMITITES: No clubbing, cyanosis, or edema. Objective - Vital Signs Vital signs: Vital Signs Temp 97.3 F L 08/16/17 07:10 Pulse 83 08/16/17 07:10 Resp 16 08/16/17 01:05 BP 182/87 08/16/17 07:10 Pulse Ox 100 08/16/17 07:10 Intake & Output 08/15/17 08/16/17 08/16/17 18:59 06:59 18:59 Intake Total 600 600 Output Total 250 225 Balance 350 375 Weight 81 kg Intake: IV 600 Sodium Chloride 0.9% 1, 600 000 ml @ 75 mls/hr IV . [id number] [facility] Rx#:[id number] Intake, IV Titration 600 Amount Sodium Chloride 0.9% 1, 600 000 ml @ 75 mls/hr IV . [id number] [facility] Rx#:[id number] Oral 0 Output: Urine 250 225 Uretheral (Grullon) 225 Other: Voiding Method Indwelling Catheter Indwelling Catheter Indwelling Catheter - Labs CBC & Chem 7: 08/14/17 05:42 08/15/17 05:50 Labs: Abnormal Lab Results - Last 24 Hours (Table) 08/15/17 08/15/17 08/15/17 Range/Units 10:32 10:45 11:35 POC Glucose (mg/dL) (75-99) mg/dL Total Protein (PEP) 5.0 L (6.2-8.2) g/dL Urine Protein 3+ H (Negative) Urine Blood Small H (Negative) Ur Leukocyte Esterase Large H (Negative) Urine RBC 149 H (0-5) /hpf Urine WBC >182 H (0-5) /hpf Urine WBC Clumps Many H (None) /hpf Urine Yeast (Budding) Many H (None) /hpf U Random Total Protein 275 H (<12) mg/dL 08/15/17 08/15/17 08/15/17 Range/Units 14:14 18:56 20:29 POC Glucose (mg/dL) 152 H 157 H 132 H (75-99) mg/dL Total Protein (PEP) (6.2-8.2) g/dL Urine Protein (Negative) Urine Blood (Negative) Ur Leukocyte Esterase (Negative) Urine RBC (0-5) /hpf Urine WBC (0-5) /hpf Urine WBC Clumps (None) /hpf Urine Yeast (Budding) (None) /hpf U Random Total Protein (<12) mg/dL 08/16/17 Range/Units 06:57 POC Glucose (mg/dL) 141 H (75-99) mg/dL Total Protein (PEP) (6.2-8.2) g/dL Urine Protein (Negative) Urine Blood (Negative) Ur Leukocyte Esterase (Negative) Urine RBC (0-5) /hpf Urine WBC (0-5) /hpf Urine WBC Clumps (None) /hpf Urine Yeast (Budding) (None) /hpf U Random Total Protein (<12) mg/dL Microbiology - Last 24 Hours (Table) 08/11/17 11:35 Blood Culture - Preliminary Blood No Growth after 96 hours Assessment and Plan Plan: Assessment: #1. Nonoliguric acute kidney injury secondary to ATN secondary to sepsis and hemodynamic instability. Further worsened with the use of diuretics and STACEY inhibitor. Creatinine is 2.5 on admission and peaked at 3.5 on August 13. It was 3.33 as of yesterday. No evidence of hydronephrosis noted on renal ultrasound. UPC 2.8. Urine eosinophils negative. Rule out GN - JEANA negative. Double-stranded DNA antibody negative. Hepatitis panel negative. #2. 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 #3. Urinary retention status post Grullon catheter placement. #4. Hypertension with chronic kidney disease. Blood pressures on the higher side. #5. Insulin-dependent diabetes mellitus. #6. Sepsis with likely source being pneumonia. UTI also of concern. Maintained on IV antibiotics. #7. History of coronary artery disease status post CABG. #8. History of atrial fibrillation. Cardiology following. #9. Protein calorie malnutrition. #10. Diastolic CHF. Currently compensated. #11. Metabolic acidosis secondary to acute kidney injury and IV fluids. Plan: Continue normal saline at 75 mL an hour. Hold lisinopril and Lasix for now. Resume amlodipine 5 mg daily. Hold antihypertensives for systolic blood pressure less than 120. Maintain Grullon catheter. Continue to monitor renal function and urine output. Repeat electrolytes in the morning. No urgent need for renal replacement therapy at this time. Follow-up cultures. Maintain oral sodium bicarbonate 650 mg twice daily.
[2017-08-16 09:37] LABS: Calcium 7.8 mg/dL (8.4-10.2); Potassium 4.6 mmol/L (3.5-5.1)
[2017-08-16 11:54] LABS: Glucose,Whole Blood 164 mg/dL (75-99)
[2017-08-16] MEDS ORDERED: cloNIDine 0.1 MG/24HR PATCH 1 PATCH PATCH TRANSDERM SCH (12:00)
[2017-08-16 13:36] LABS: Albumin 1.94 g/dL (3.80-4.90); Gamma Globulin 0.99 g/dL (0.70-1.50)
[2017-08-16 13:53] LABS: C-ANCA <1:20 Titer (<1:20); P-ANCA <1:20 Titer (<1:20)
[2017-08-16] MEDS: amLODIPine 5 MG TAB PO SCH (15:04)
--- NOTE | 2017-08-16 16:18 | P.PN ---
Subjective Progress Note Date: 08/16/17 This is a 71-year-old male one of Dr. Lucas Gallo's patient with past medical history of hypertension, hyperlipidemia, diabetes, COPD, ,CHF , alcoholism and worsening heart failure who had open heart surgery with the CABG 2015 ended up having multiple complications and the multiple rehospitalization for worsening shortness of breath, A. fib and other complication. He was last hospitalized on 05/06/2016 at which time he was here for bradycardia and beta kojo was discontinued. He was sent in after neighbor found him in bed very weak, apparently patient has not gotten out of bed for 2 days. The neighbor checks on him on a daily basis, however on her return trip, he hasn't moved out of bed and has soiled himself stooled himself, and hasn't eaten for approximately 48 hours. Patient has difficulty in getting out of bed difficulty ambulating, his son who normally is sees constantly complaining at home, apparently admitted hospital hence no one was caring for the patient except for a visit from a neighbor. Patient has had cough, some wheezing, stiffness of the joint, difficulty in ambulating, patient hasn't had his medications for 2 days as well 08/12: Echocardiogram reveals EF of 50-55% with moderate concentric left ventricular hypertrophy, LA severely dilated at greater than 40, are appears enlarged, mild mitral calcification, mild mitral regurgitation, mild tricuspid regurgitation. Patient has been seen and evaluated by cardiology. Beta kojo was not started due to history of symptomatic bradycardia. Aspirin 81 mg was added. Patient no longer on Coumadin most likely due to risk of bleeding. White count is improved to 20.1. BUN is 63 and creatinine 2.8. TSH is 2.940. Patient is decreased mental status today. Staff was unable to feed him today. His blood pressure is stable. Opheim will be changed to half a tablet which is 2.5 mg 3 times daily as needed. Keppra level will be checked in the morning as well as EEG ordered. Patient has been afebrile. PT has recommended subacute rehab. 08/13: Patient improved slightly yesterday evening where he was able to tolerate his dinner and he ate 80% of his dinner. Patient today is still lethargic but open his eyes to voice command following simple commands like moving his extremities up and down 08/14: Patient continued to have adequate urine output with a slight improvement in kidney function. Patient is improved from the mental status standpoint where he is more awake and following simple commands but looks lethargic overall. No major events reported by nursing staff 08/15: Patient was evaluated today, he underwent abdominal/bladder ultrasound, exam revealed limited exam but otherwise normal. Cardiology on consult, who discontinued his amlodipine do to hypotension. Blood pressure did improve to 132/67 today. Creatinine function slightly increased from previous, today 3.3, nephrology consult, recommends to continue with IV hydration, continue to hold lisinopril Lasix. Blood cultures show no growth to date. 08/16: Patient is still lethargic for nurse. Speech therapy has evaluated and made him nothing by mouth as he is too lethargic to eat. Keppra and Protonix changed to IV. Clonidine patch added for blood pressure control. He is continued on IV fluids at 75 mL per hour. Oral medications have been discontinued until patient is more alert. Creatinine is 3.25. Last bowel movement was 2 days ago. He has had good urine output. Repeat urinalysis shows signs of infection and patient is already on Zosyn. Objective - Vital Signs Vital signs: Vital Signs Temp 97.3 F L 08/16/17 07:10 Pulse 83 08/16/17 07:10 Resp 16 08/16/17 01:05 BP 182/87 08/16/17 07:10 Pulse Ox 100 08/16/17 07:10 Intake & Output 08/15/17 08/16/17 08/16/17 18:59 06:59 18:59 Intake Total 600 600 Output Total 250 225 Balance 350 375 Weight 81 kg 81 kg Intake: IV 600 Sodium Chloride 0.9% 1, 600 000 ml @ 75 mls/hr IV . [id number] [facility]A Rx#:[id number] Intake, IV Titration 600 Amount Sodium Chloride 0.9% 1, 600 000 ml @ 75 mls/hr IV . [id number] [facility]MA ROSA Rx#:[id number] Oral 0 Output: Urine 250 225 Uretheral ([place]) 225 Other: Voiding Method Indwelling Catheter Indwelling Catheter Indwelling Catheter - Exam General appearance: cooperative, no acute distress, thin - EENT Eyes: anicteric sclerae, EOMI, PERRLA, dentition normal ENT: hard of hearing, NA/AT, normal oropharynx - Neck Neck: no lymphadenopathy, normal ROM, no other, no rigidity, no stridor, no thyromegaly - Respiratory Respiratory: bilateral: CTA, diminished, negative: dullness, rales, rhonchi, wheezing, prolonged expiration - Cardiovascular Rhythm: regular Heart sounds: normal: S1, S2 - Gastrointestinal General gastrointestinal: normal bowel sounds, soft - Integumentary Stage I decubitus ulcer sacrum Integumentary: decreased turgor, normal - Neurologic Neurologic: CNII-XII intact - Musculoskeletal Musculoskeletal: generalized weakness, strength equal bilaterally - Psychiatric Psychiatric: A&O x's 0, no appropriate affect, no intact judgment & insight - Labs CBC & Chem 7: 08/14/17 05:42 08/16/17 09:07 Labs: Abnormal Lab Results - Last 24 Hours (Table) 08/15/17 08/15/17 08/15/17 Range/Units 10:32 10:45 11:35 Chloride (98-107) mmol/L Carbon Dioxide (22-30) mmol/L BUN (9-20) mg/dL Creatinine (0.66-1.25) mg/dL Glucose (74-99) mg/dL POC Glucose (mg/dL) (75-99) mg/dL Calcium (8.4-10.2) mg/dL Total Protein (PEP) 5.0 L (6.2-8.2) g/dL Urine Protein 3+ H (Negative) Urine Blood Small H (Negative) Ur Leukocyte Esterase Large H (Negative) Urine RBC 149 H (0-5) /hpf Urine WBC >182 H (0-5) /hpf Urine WBC Clumps Many H (None) /hpf Urine Yeast (Budding) Many H (None) /hpf U Random Total Protein 275 H (<12) mg/dL Free [place] LC, Quant 9.53 H (0.33-1.94) mg/dL Free Lambda LC, Quant 8.05 H (0.57-2.63) mg/dL 08/15/17 08/15/17 08/15/17 Range/Units 14:14 18:56 20:29 Chloride (98-107) mmol/L Carbon Dioxide (22-30) mmol/L BUN (9-20) mg/dL Creatinine (0.66-1.25) mg/dL Glucose (74-99) mg/dL POC Glucose (mg/dL) 152 H 157 H 132 H (75-99) mg/dL Calcium (8.4-10.2) mg/dL Total Protein (PEP) (6.2-8.2) g/dL Urine Protein (Negative) Urine Blood (Negative) Ur Leukocyte Esterase (Negative) Urine RBC (0-5) /hpf Urine WBC (0-5) /hpf Urine WBC Clumps (None) /hpf Urine Yeast (Budding) (None) /hpf U Random Total Protein (<12) mg/dL Free [place] LC, Quant (0.33-1.94) mg/dL Free Lambda LC, Quant (0.57-2.63) mg/dL 08/16/17 08/16/17 Range/Units 06:57 09:07 Chloride 113 H (98-107) mmol/L Carbon Dioxide 19 L (22-30) mmol/L BUN 59 H (9-20) mg/dL Creatinine 3.25 H (0.66-1.25) mg/dL Glucose 151 H (74-99) mg/dL POC Glucose (mg/dL) 141 H (75-99) mg/dL Calcium 7.8 L (8.4-10.2) mg/dL Total Protein (PEP) (6.2-8.2) g/dL Urine Protein (Negative) Urine Blood (Negative) Ur Leukocyte Esterase (Negative) Urine RBC (0-5) /hpf Urine WBC (0-5) /hpf Urine WBC Clumps (None) /hpf Urine Yeast (Budding) (None) /hpf U Random Total Protein (<12) mg/dL Free [place] LC, Quant (0.33-1.94) mg/dL Free Lambda LC, Quant (0.57-2.63) mg/dL Microbiology - Last 24 Hours (Table) 08/11/17 11:35 Blood Culture - Preliminary Blood No Growth after 96 hours Assessment and Plan Plan: 1. Metabolic encephalopathy with sepsis of unclear source aspiration pneumonia is differential vs community acquired pneumonia, UTI. Continue Zosyn with cultures to be obtained blood in urine. Opheim discontinued. Speech therapy has evaluated and made him nothing by mouth as he is too lethargic to eat. Keppra and Protonix changed to IV. Clonidine patch added for blood pressure control. 2. Elevated troponin, secondary to sepsis 3. Arrhythmia history with prior Nonsustained ventricular tachycardia on 2015 H and was seen by cardiology echocardiogramJuly 2016 showed atrial fibrillation with small pericardial effusion noted ejection fraction 45-50% inferolateral hypokinesis with palpation of LA size over 40. Electrolyte management is optimized 4. History bilateral hydronephrosis mild, improved from last ultrasound history Phimosis with urinary retention resolved monitor for urinary retention continue tamsulosin 5. CAD post CABG. continue aspirin 81 mg orally once every day, 6. Diabetes mellitus type II: Has been on Lantus at 20 units at bedtime along with pre-meal however with the sugars being low, and Lantus on hold , NovoLog sliding scale, current sugars are low 7. Hypertensive cardiovascular disease. Continue lisinopril 20 mg mg daily, isorbide 30 mg daily, amlodipine 5 mg daily hydralazine 50 mg 3 times a day 8. Hyperlipidemia: On Lipitor 40 mg orally once every day. 9. Chronic A. fib. Patient is no longer on Coumadin. This may be related to risk of falls. 10. Chronic systolic heart failure. Continue Imdur 30 mg orally once every day , hydralazine 75 mg orally twice a day, lisinopril 20 mg a day, Norvasc 5 mg daily.Lasix 40 mg a day 11. Recurrent depression: Has been on Prozac 20 mg daily.Xanax at bedtime 12. Seizure history: Has been on Keppra 750 g twice a day with no new seizure activity. CHeck Keppra level 13. BPH: Continue patient on Flomax 0.4 mg daily. Monitor for urinary retention, check for postvoid residual symptoms have resolved 14. Severe GERD: Will add Protonix 40 mg daily\ 15. Rhabdomyolysis, hold Lipitor for a few days until CPK would subside 16. Proteinuria 17. History of left [employer] policy improved symptoms last admission October 2015 18. Sacral decubitus stage I secondary to prolonged immobilization , overlay mattress and frequent turning 19. Hepatitis A exposure, son, hepatitis panel is negative Discharge plan: Subacute rehab Impression and plan of care have been directed as dictated by the signing physician. Carly Greene nurse practitioner acting as scribe for signing physician.
[2017-08-16 16:42] LABS: Glucose,Whole Blood 165 mg/dL (75-99)
[2017-08-16] MEDS: ENOXAPARIN 30 MG/0.3 ML SYRINGE SQ SCH (18:12)
--- NOTE | 2017-08-16 19:35 | P.CNNES ---
History of Present Illness Consult date: 08/16/17 History of Present Illness: The patient is a 71-year-old man who lives at home with his son. Apparently his son had been hospitalized in his neighbor was watching over him. The patient had become less responsive and neighbor called EMS. Apparently he had moved from the chair for was in 24 hours and he it urinary incontinence. He had complained of general weakness. EMS brought him to [facility]. He has multiple medical problems including hypertension diabetes COPD congestive heart failure atrial fibrillation. When the patient was admitted he hadn't eaten for 48 hours and had difficulty ambulating. His main symptomatic complaint was cough and wheezing and difficulty ambulating for 2 days. His CPK was 596 on admission his white cell count was elevated at 29, 000. He was admitted to the hospital with sepsis and leukocytosis, chronic kidney failure chronic A. fib. Neurology is requested to see the patient today regarding altered mental status. She is unable to give any history. He is sleeping heavily. His nurse reports that he has had this type of somnolence during is an entire hospital stay. Apparently he has a history of seizure disorder and is on Keppra. He had a EEG during his hospital stay which showed general slowing. The patient also has history of alcoholism the patient was has been unable to eat because he sleeping most of the time. Review of Systems ROS unobtainable: due to mental status Past Medical History Past Medical History: Atrial Fibrillation, Coronary Artery Disease (CAD), Heart Failure, COPD, Diabetes Mellitus, GERD/Reflux, Hyperlipidemia, Hypertension, Myocardial Infarction (non Q-wave), Musculoskeletal Disorder, Osteoarthritis (OA ), Pneumonia, Prostate Disorder, Seizure Disorder, Sleep Apnea/CPAP/BIPAP Additional Past Medical History / Comment(s): Other HX: TIA possible CVA pt us unsure, Chronic UTI'S,. CATARACTS bilaterally, GOUT,DOES'NT USE CPAP AT. HOME ,KIDNEY STONE, BULGING DISCS. home o2 3l nc at all times MS 11/2013, arthiritis . Last Myocardial Infarction Date:: 2013 History of Any Multi-Drug Resistant Organisms: None Reported Date of last positivie culture/infection: None MDRO Source:: None Past Surgical History: Bladder Surgery, Coronary Bypass/CABG, Heart Catheterization Additional Past Surgical History / Comment(s): Cardiac cath with PTCA 12/14/13, CABG 5 vessek 01/02/14, BENIGN TUMOR ON SALIVARY GLANDS (RT) REMOVED, HAD A SUPRA PUBIC CATH IN PAST THAT GOT INFECTED ENDED UP AT [facility]. Past Anesthesia/Blood Transfusion Reactions: No Reported Reaction Past Psychological History: Depression Additional Psychological History / Comment(s): Pt lives alone denies outside services.stated left him around mar 2014. He is on home O2 at 3L/NC all of the time. Pt is independent in his ADL's. He uses a cane most of the time. He cooks his. own food. . Pt has had home care in the past but none now. He also has friends that help him and family calls to check on him as well. Twin has been helping him. Smoking Status: Former smoker Past Alcohol Use History: None Reported Additional Past Alcohol Use History / Comment(s): STARTED SMOKING AT AGE 19 QUIT 2012 3PPD FOR 10 YEARS THEN DECREASED TO 2 PPD UNTIL HE QUIT. 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, Past Drug Use History: None Reported - Past Family History Father Family Medical History: Cancer, Dementia, Hyperlipidemia, Hypertension, Myocardial Infarction (MS) Additional Family Medical History / Comment(s): AT AGE 78- Mother Family Medical History: No Reported History, Coronary Artery Disease (CAD), Dementia, Myocardial Infarction (MS) Additional Family Medical History / Comment(s): AT AGE 86 Brother(s) Family Medical History: No Reported History Sister(s) Family Medical History: No Reported History, Rheumatoid Arthritis (RA) Son(s) Family Medical History: No Reported History Daughter(s) Family Medical History: No Reported History Medications and Allergies Home Medications Medication Instructions Recorded Confirmed Type Baclofen 10 mg PO HS 04/26/14 08/11/17 History Isosorbide Mononitrate ER [Imdur] 30 mg PO DAILY 04/26/14 08/11/17 History levETIRAcetam [Keppra] 750 mg PO BID 04/26/14 08/11/17 History Atorvastatin [Lipitor] 40 mg PO HS 06/14/14 08/11/17 History Furosemide [Lasix] 40 mg PO BID tab 12/23/14 08/11/17 Rx Tamsulosin HCl [Flomax] 0.4 mg PO BID #0 12/24/14 08/11/17 Rx ALPRAZolam [Xanax] 0.25 mg PO HS 11/20/15 08/11/17 History Lisinopril [Zestril] 20 mg PO DAILY 04/18/16 08/11/17 History Omeprazole [PriLOSEC] 20 mg PO BID 04/18/16 08/11/17 History PARoxetine HCL [Paxil] 40 mg PO DAILY 04/18/16 08/11/17 History hydrALAZINE HCL [Apresoline] 75 mg PO BID 04/18/16 08/11/17 History Potassium Chloride ER [K-Dur 20] 20 meq PO DAILY 05/05/16 08/11/17 History Montelukast [Singulair] 10 mg PO DAILY 06/16/16 08/11/17 History Albuterol Inhaler [Ventolin Hfa 2 puff INHALATION RT-QID PRN 08/11/17 08/11/17 History Inhaler] Budesonide [Pulmicort] 0.5 mg INHALATION RT-BID 08/11/17 08/11/17 History HYDROcodone/APAP 5-325MG [[place] 1 tab PO TID 08/11/17 08/11/17 History 5-325] Insulin Glargine [Lantus] 20 unit SQ HS 08/11/17 08/11/17 History Ipratropium-Albuterol Nebulize 3 ml INHALATION RT-QID 08/11/17 08/11/17 History [Duoneb 0.5 mg-3 mg/3 ml Soln] Nitroglycerin Sl Tabs [Nitrostat] 0.4 mg SUBLINGUAL Q5M PRN 08/11/17 08/11/17 History amLODIPine [Norvasc] 5 mg PO DAILY 08/11/17 08/11/17 History Allergies Allergy/AdvReac Type Severity Reaction Status Date / Time adhesive AdvReac Unknown Verified 08/11/17 12:23 influenza virus vaccine, AdvReac Nausea & Verified 08/11/17 12:23 specific Vomiting & [Influenza Virus Diarrhea Vacc,Specific] Physical Examination - Vital Signs Vital Signs: Vital Signs Temp Pulse Pulse Resp BP Pulse Ox 08/16/17 15:51 88 08/16/17 15:39 88 08/16/17 15:10 97.8 F 83 16 176/81 95 08/16/17 13:05 84 04/24/18 12:53 80 08/16/17 07:10 97.3 F L 83 182/87 100 08/16/17 07:07 84 08/16/17 06:51 80 96 08/16/17 05:34 87 178/77 08/16/17 04:59 90 181/93 08/16/17 01:05 97.1 F L 89 16 175/82 98 08/15/17 21:22 98.4 F 88 14 166/77 98 08/15/17 19:51 88 08/15/17 19:44 88 Intake and Output 08/16/17 08/16/17 08/16/17 06:59 14:59 22:59 Intake Total 600 300 Output Total 225 Balance 375 300 Intake: IV 300 Sodium Chloride 0.9% 1, 300 000 ml @ 75 mls/hr IV . [id number] [facility] Rx#:[id number] Intake, IV Titration 600 Amount Sodium Chloride 0.9% 1, 600 000 ml @ 75 mls/hr IV . [id number] [facility] [place] Rx#:[id number] Output: Urine 225 Uretheral (Grullon) 225 Other: Voiding Method Indwelling Catheter Indwelling Catheter Weight 81 kg 81 kg - Constitutional General appearance: average body habitus - EENT EENT: PERRL - Respiratory Respiratory: rales, rhonchi - Cardiovascular Cardiovascular: regular rate - Neurologic Mental status the patient was sleeping heavily and unable to arouse. He did groan and transiently open his eyes to deep sternal rub. Cranial nerve examination there was no obvious facial asymmetry pupils were 3 mm and equal and reactive next Motor examination the patient did withdraw to deep pain Deep tendon reflexes were symmetric X Gait could not be tested Results - Laboratory Findings CBC and BMP: 08/14/17 05:42 08/16/17 09:07 Abnormal Lab Findings: Abnormal Labs 08/11/17 08/11/17 08/11/17 11:36 11:36 11:36 WBC 29.3 H* RBC 5.96 H Hgb Hct Neutrophils # 26.2 H Monocytes # 1.5 H INR Sodium 146 H Chloride Carbon Dioxide BUN 53 H Creatinine 2.50 H Glucose POC Glucose (mg/dL) Hemoglobin A1c Plasma Lactic Acid Pedrito Calcium ALT 20 L Alkaline Phosphatase 147 H Creatine Kinase Total Creatine Kinase 596 H CK-MB (CK-2) 5.0 H* Troponin I 0.158 H* Total Protein Total Protein (PEP) Albumin 3.0 L Albumin (PEP) Vitamin B12 Urine Protein Urine Blood Ur Leukocyte Esterase Urine RBC Urine WBC Urine WBC Clumps Ur Squamous Epith Cells Urine Bacteria Urine Yeast (Budding) U Random Total Protein Free [place] LC, Quant Free Lambda LC, Quant 08/11/17 08/11/17 08/11/17 11:36 11:36 12:17 WBC RBC Hgb Hct Neutrophils # Monocytes # INR 1.2 H Sodium Chloride Carbon Dioxide BUN Creatinine Glucose POC Glucose (mg/dL) Hemoglobin A1c Plasma Lactic Acid Pedrito 2.2 H* Calcium ALT Alkaline Phosphatase Creatine Kinase Total Creatine Kinase CK-MB (CK-2) Troponin I Total Protein Total Protein (PEP) Albumin Albumin (PEP) Vitamin B12 Urine Protein 4+ H Urine Blood Moderate H Ur Leukocyte Esterase Urine RBC Urine WBC 6 H Urine WBC Clumps Ur Squamous Epith Cells 6 H Urine Bacteria Rare H Urine Yeast (Budding) U Random Total Protein Free [place] LC, Quant Free Lambda LC, Quant 08/11/17 08/11/17 08/11/17 16:34 18:21 18:21 WBC RBC Hgb Hct Neutrophils # Monocytes # INR Sodium Chloride Carbon Dioxide BUN Creatinine Glucose POC Glucose (mg/dL) 70 L Hemoglobin A1c Plasma Lactic Acid Pedrito Calcium ALT Alkaline Phosphatase Creatine Kinase Total Creatine Kinase CK-MB (CK-2) Troponin I 0.144 H* Total Protein Total Protein (PEP) Albumin Albumin (PEP) Vitamin B12 2690.0 H Urine Protein Urine Blood Ur Leukocyte Esterase Urine RBC Urine WBC Urine WBC Clumps Ur Squamous Epith Cells Urine Bacteria Urine Yeast (Budding) U Random Total Protein Free [place] LC, Quant Free Lambda LC, Quant 08/11/17 08/12/17 08/12/17 20:38 05:36 06:15 WBC 20.1 H RBC Hgb 12.6 L D Hct Neutrophils # 16.8 H Monocytes # 1.2 H INR Sodium Chloride Carbon Dioxide BUN Creatinine Glucose POC Glucose (mg/dL) 157 H 142 H Hemoglobin A1c Plasma Lactic Acid Pedrito Calcium ALT Alkaline Phosphatase Creatine Kinase Total Creatine Kinase CK-MB (CK-2) Troponin I Total Protein Total Protein (PEP) Albumin Albumin (PEP) Vitamin B12 Urine Protein Urine Blood Ur Leukocyte Esterase Urine RBC Urine WBC Urine WBC Clumps Ur Squamous Epith Cells Urine Bacteria Urine Yeast (Budding) U Random Total Protein Free [place] LC, Quant Free Lambda LC, Quant 08/12/17 08/12/17 08/12/17 06:15 11:45 16:45 WBC RBC Hgb Hct Neutrophils # Monocytes # INR Sodium Chloride Carbon Dioxide 21 L BUN 63 H Creatinine 2.80 H Glucose 135 H POC Glucose (mg/dL) 146 H 163 H Hemoglobin A1c Plasma Lactic Acid Pedrito Calcium 7.5 L ALT 20 L Alkaline Phosphatase Creatine Kinase 369 H Total Creatine Kinase CK-MB (CK-2) Troponin I Total Protein 4.9 L Total Protein (PEP) Albumin 2.0 L Albumin (PEP) Vitamin B12 Urine Protein Urine Blood Ur Leukocyte Esterase Urine RBC Urine WBC Urine WBC Clumps Ur Squamous Epith Cells Urine Bacteria Urine Yeast (Budding) U Random Total Protein Free [place] LC, Quant Free Lambda LC, Quant 08/12/17 08/13/17 08/13/17 21:04 05:55 06:42 WBC RBC Hgb Hct Neutrophils # Monocytes # INR Sodium Chloride Carbon Dioxide BUN Creatinine Glucose POC Glucose (mg/dL) 191 H 261 H Hemoglobin A1c 8.4 H Plasma Lactic Acid Pedrito Calcium ALT Alkaline Phosphatase Creatine Kinase Total Creatine Kinase CK-MB (CK-2) Troponin I Total Protein Total Protein (PEP) Albumin Albumin (PEP) Vitamin B12 Urine Protein Urine Blood Ur Leukocyte Esterase Urine RBC Urine WBC Urine WBC Clumps Ur Squamous Epith Cells Urine Bacteria Urine Yeast (Budding) U Random Total Protein Free [place] LC, Quant Free Lambda LC, Quant 08/13/17 08/13/17 08/13/17 06:42 06:42 11:47 WBC 13.0 H RBC Hgb 11.9 L Hct 37.7 L Neutrophils # 10.6 H Monocytes # INR Sodium Chloride Carbon Dioxide BUN 64 H Creatinine 3.55 H Glucose 268 H POC Glucose (mg/dL) 163 H Hemoglobin A1c Plasma Lactic Acid Pedrito Calcium 7.4 L ALT 18 L Alkaline Phosphatase Creatine Kinase Total Creatine Kinase CK-MB (CK-2) Troponin I Total Protein 4.7 L Total Protein (PEP) Albumin 2.0 L Albumin (PEP) Vitamin B12 Urine Protein Urine Blood Ur Leukocyte Esterase Urine RBC Urine WBC Urine WBC Clumps Ur Squamous Epith Cells Urine Bacteria Urine Yeast (Budding) U Random Total Protein Free [place] LC, Quant Free Lambda LC, Quant 08/13/17 08/13/17 08/14/17 16:44 20:58 05:42 WBC 11.6 H RBC 4.20 L Hgb 11.9 L Hct 36.7 L Neutrophils # 9.2 H Monocytes # INR Sodium Chloride Carbon Dioxide BUN Creatinine Glucose POC Glucose (mg/dL) 190 H 173 H Hemoglobin A1c Plasma Lactic Acid Pedrito Calcium ALT Alkaline Phosphatase Creatine Kinase Total Creatine Kinase CK-MB (CK-2) Troponin I Total Protein Total Protein (PEP) Albumin Albumin (PEP) Vitamin B12 Urine Protein Urine Blood Ur Leukocyte Esterase Urine RBC Urine WBC Urine WBC Clumps Ur Squamous Epith Cells Urine Bacteria Urine Yeast (Budding) U Random Total Protein Free [place] LC, Quant Free Lambda LC, Quant 08/14/17 08/14/17 08/14/17 05:42 06:07 11:33 WBC RBC Hgb Hct Neutrophils # Monocytes # INR Sodium Chloride 108 H Carbon Dioxide 21 L BUN 59 H Creatinine 3.20 H Glucose 144 H POC Glucose (mg/dL) 136 H 178 H Hemoglobin A1c Plasma Lactic Acid Pedrito Calcium 7.5 L ALT Alkaline Phosphatase Creatine Kinase Total Creatine Kinase CK-MB (CK-2) Troponin I Total Protein Total Protein (PEP) Albumin Albumin (PEP) Vitamin B12 Urine Protein Urine Blood Ur Leukocyte Esterase Urine RBC Urine WBC Urine WBC Clumps Ur Squamous Epith Cells Urine Bacteria Urine Yeast (Budding) U Random Total Protein Free [place] LC, Quant Free Lambda LC, Quant 08/14/17 08/14/17 08/15/17 16:49 21:19 05:50 WBC RBC Hgb Hct Neutrophils # Monocytes # INR Sodium Chloride 111 H Carbon Dioxide 21 L BUN 58 H Creatinine 3.33 H Glucose 122 H POC Glucose (mg/dL) 154 H 198 H Hemoglobin A1c Plasma Lactic Acid Pedrito Calcium 7.6 L ALT Alkaline Phosphatase Creatine Kinase Total Creatine Kinase CK-MB (CK-2) Troponin I Total Protein Total Protein (PEP) Albumin Albumin (PEP) Vitamin B12 Urine Protein Urine Blood Ur Leukocyte Esterase Urine RBC Urine WBC Urine WBC Clumps Ur Squamous Epith Cells Urine Bacteria Urine Yeast (Budding) U Random Total Protein Free [place] LC, Quant Free Lambda LC, Quant 08/15/17 08/15/17 08/15/17 05:52 10:32 10:45 WBC RBC Hgb Hct Neutrophils # Monocytes # INR Sodium Chloride Carbon Dioxide BUN Creatinine Glucose POC Glucose (mg/dL) 160 H Hemoglobin A1c Plasma Lactic Acid Pedrito Calcium ALT Alkaline Phosphatase Creatine Kinase Total Creatine Kinase CK-MB (CK-2) Troponin I Total Protein Total Protein (PEP) 5.0 L Albumin Albumin (PEP) 1.94 L Vitamin B12 Urine Protein Urine Blood Ur Leukocyte Esterase Urine RBC Urine WBC Urine WBC Clumps Ur Squamous Epith Cells Urine Bacteria Urine Yeast (Budding) U Random Total Protein 275 H Free [place] LC, Quant 9.53 H Free Lambda LC, Quant 8.05 H 08/15/17 08/15/17 08/15/17 11:35 14:14 18:56 WBC RBC Hgb Hct Neutrophils # Monocytes # INR Sodium Chloride Carbon Dioxide BUN Creatinine Glucose POC Glucose (mg/dL) 152 H 157 H Hemoglobin A1c Plasma Lactic Acid Pedrito Calcium ALT Alkaline Phosphatase Creatine Kinase Total Creatine Kinase CK-MB (CK-2) Troponin I Total Protein Total Protein (PEP) Albumin Albumin (PEP) Vitamin B12 Urine Protein 3+ H Urine Blood Small H Ur Leukocyte Esterase Large H Urine RBC 149 H Urine WBC >182 H Urine WBC Clumps Many H Ur Squamous Epith Cells Urine Bacteria Urine Yeast (Budding) Many H U Random Total Protein Free [place] LC, Quant Free Lambda LC, Quant 08/15/17 08/16/17 08/16/17 20:29 06:57 09:07 WBC RBC Hgb Hct Neutrophils # Monocytes # INR Sodium Chloride 113 H Carbon Dioxide 19 L BUN 59 H Creatinine 3.25 H Glucose 151 H POC Glucose (mg/dL) 132 H 141 H Hemoglobin A1c Plasma Lactic Acid Pedrito Calcium 7.8 L ALT Alkaline Phosphatase Creatine Kinase Total Creatine Kinase CK-MB (CK-2) Troponin I Total Protein Total Protein (PEP) Albumin Albumin (PEP) Vitamin B12 Urine Protein Urine Blood Ur Leukocyte Esterase Urine RBC Urine WBC Urine WBC Clumps Ur Squamous Epith Cells Urine Bacteria Urine Yeast (Budding) U Random Total Protein Free [place] LC, Quant Free Lambda LC, Quant 08/16/17 08/16/17 11:44 16:39 WBC RBC Hgb Hct Neutrophils # Monocytes # INR Sodium Chloride Carbon Dioxide BUN Creatinine Glucose POC Glucose (mg/dL) 164 H 165 H Hemoglobin A1c Plasma Lactic Acid Pedrito Calcium ALT Alkaline Phosphatase Creatine Kinase Total Creatine Kinase CK-MB (CK-2) Troponin I Total Protein Total Protein (PEP) Albumin Albumin (PEP) Vitamin B12 Urine Protein Urine Blood Ur Leukocyte Esterase Urine RBC Urine WBC Urine WBC Clumps Ur Squamous Epith Cells Urine Bacteria Urine Yeast (Budding) U Random Total Protein Free [place] LC, Quant Free Lambda LC, Quant Assessment and Plan (1) Metabolic encephalopathy Current Visit: Yes Status: Acute SNOMED Code(s): 54239030 (2) Acute kidney injury superimposed on chronic kidney disease Current Visit: Yes Status: Acute SNOMED Code(s): 77141039 (3) History of seizures Current Visit: Yes Status: Chronic SNOMED Code(s): 410486719 (4) Coronary artery disease Current Visit: No Status: Chronic Code(s): I25.10 - ATHSCL HEART DISEASE OF [place] CORONARY ARTERY W/O ANG PCTRS SNOMED Code(s): 86286908 Plan: The patient is a 71-year-old man with multiple medical problems and metabolic encephalopathy secondary to sepsis and renal failure. He is being treated for aspiration pneumonia. He has a history of seizure disorder but EEG did not show any active seizure discharge. Recommend CT brain to rule out any intracranial bleed or stroke. Continue current medical management of multiple medical conditions including heart failure and renal failure. Keppra level was checked recently and in the therapeutic range.
[2017-08-16] MEDS ORDERED: hydrALAZINE HCL 20 MG/ML 1 ML VIAL IVP PRN (20:02)
[2017-08-16] MEDS ORDERED: cloNIDine 0.2 MG/24HR PATCH 1 PATCH PATCH TRANSDERM SCH (20:15)
[2017-08-16 20:22] LABS: Glucose,Whole Blood 138 mg/dL (75-99)
[2017-08-16] MEDS: levETIRAcetam IV 750 MG in SODIUM CHLORIDE 0.9% 100 ML IVPB SCH (20:40)
[2017-08-17] MEDS: SODIUM CHLORIDE 0.9% 1,000 ML IV SCH (05:16)
[2017-08-17 06:48] LABS: Glucose,Whole Blood 128 mg/dL (75-99)
[2017-08-17] MEDS: BUDESONIDE 0.5 MG/2 ML NEBU INHALATION SCH ×2 (07:42→19:52)
[2017-08-17] MEDS: IPRATROPIUM-ALBUTEROL 3 ML NEB INHALATION SCH ×4 (07:42→19:52)
--- NOTE | 2017-08-17 08:06 | CT ---
EXAMINATION TYPE: CT brain wo con DATE OF EXAM: 08/17/2017 COMPARISON: 08/17/2015 HISTORY: encephalopathy CT DLP: 1058 mGycm Automated exposure control for dose reduction was used. TECHNIQUE: CT scan of the head is performed without contrast. FINDINGS: Encephalomalacia is seen within the left cerebellar hemisphere, unchanged from exam of 16 from prior infarct. CSF attenuated old lacunar injury has occurred in the interim in comparison to th e exam of 2016 within the inferior right cerebellar peduncle. Right pontine lacunar injuries unchange d from 2016. Basal ganglia and thalami are well preserved. Insular cortex is also well demarcated. Th ere is no acute intracranial hemorrhage or midline shift identified. There is diffuse ventricular and sulcal prominence consistent with diffuse age-related cerebral atrophy. There is low-attenuation in the periventricular white matter consistent with chronic small vessel ischemic change. No suspicious extra-axial fluid collection. There is atherosclerosis of the intracranial vasculature. The globes a re intact and the visualized sinuses are clear. Calvarium is intact. There is either a subcentimete r bone island or small osteoma within the left frontal bone unchanged from the prior exam on series 8 image 12. Cerumen is incidentally noted within the external auditory canals. Paranasal sinuses and m astoid air cells are well aerated. IMPRESSION: 1. No acute intracranial hemorrhage or midline shift. No acute intracranial process. 2. Multifocal lacunar injuries all appearing old, two of which were present on the prior exam of 2016 . 3. Diffuse age-related cerebral atrophy and chronic small vessel ischemic change noted. This is most commonly on the basis of chronic microangiopathy.
[2017-08-17] MEDS: INSULIN ASPART 100 UNIT/ML 1 ML 10 ML VIAL SQ SCH ×4 (08:36→22:04)
--- NOTE | 2017-08-17 10:52 | P.PN ---
Subjective Patient is seen in follow-up for acute kidney injury. His creatinine in May 2016 was near 1.2. This admission his creatinine was 2.5 and peaked at 3.5 as of August 13. Lisinopril and diuretics were discontinued. Creatinine did come down to 3.2 as of August 14 and was 3.25 yesterday. He is nonoliguric. He has a Grullon catheter in place for urinary retention. Hemodynamically stable. Denies vomiting or diarrhea. Oral intake is poor. He is quite lethargic and doesn't respond much to verbal commands. CT of the brain revealed no acute abnormalities. Vital signs are stable. General: The patient appeared well nourished and normally developed. HEENT: Head exam is unremarkable. Neck is without jugular venous distension. LUNGS: Lungs are clear to auscultation and percussion. Breath sounds decreased. HEART: Rate and Rhythm are regular. First and second heart sounds normal. No murmurs, rubs or gallops. ABDOMEN: Abdominal exam reveals normal bowel sounds. Non-tender and non- distended. No evidence of peritonitis. EXTREMITITES: No clubbing, cyanosis, or edema. Objective - Vital Signs Vital signs: Vital Signs Temp 97.6 F 08/17/17 01:05 Pulse 80 08/17/17 08:02 Resp 20 08/17/17 07:10 BP 177/71 08/17/17 07:10 Pulse Ox 98 08/17/17 07:10 Intake & Output 08/16/17 08/17/17 08/17/17 18:59 06:59 18:59 Intake Total 300 225 Output Total 500 Balance 300 -275 Weight 81 kg Intake: IV 300 225 Sodium Chloride 0.9% 1, 300 225 000 ml @ 75 mls/hr IV . [id number] [facility] Rx#:[id number] Output: Urine 500 Uretheral (Grullon) 500 Other: Voiding Method Indwelling Catheter Indwelling Catheter - Labs CBC & Chem 7: 08/14/17 05:42 08/16/17 09:07 Labs: Abnormal Lab Results - Last 24 Hours (Table) 08/15/17 08/16/17 08/16/17 Range/Units 10:32 11:44 16:39 POC Glucose (mg/dL) 164 H 165 H (75-99) mg/dL Albumin (PEP) 1.94 L (3.80-4.90) g/dL 08/16/17 08/17/17 Range/Units 20:18 06:42 POC Glucose (mg/dL) 138 H 128 H (75-99) mg/dL Albumin (PEP) (3.80-4.90) g/dL Microbiology - Last 24 Hours (Table) 08/16/17 10:30 Urine Culture - Preliminary Urine,Catheterized 08/11/17 11:35 Blood Culture - Preliminary Blood No Growth after 120 hours Assessment and Plan Plan: Assessment: #1. Nonoliguric acute kidney injury secondary to ATN secondary to sepsis and hemodynamic instability. Further worsened with the use of diuretics and STACEY inhibitor. Creatinine is 2.5 on admission and peaked at 3.5 on August 13. It was 3.25 as of yesterday. No evidence of hydronephrosis noted on renal ultrasound. UPC 2.8. Urine eosinophils negative. Rule out GN - serologies have been negative. #2. 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 #3. Urinary retention status post Grullon catheter placement. #4. Hypertension with chronic kidney disease. Blood pressures on the higher side. #5. Insulin-dependent diabetes mellitus. #6. Sepsis with likely source being pneumonia. UTI also of concern. Maintained on IV antibiotics. #7. History of coronary artery disease status post CABG. #8. History of atrial fibrillation. Cardiology following. #9. Protein calorie malnutrition. #10. Diastolic CHF. Currently compensated. #11. Metabolic acidosis secondary to acute kidney injury and IV fluids, maintained on oral sodium bicarbonate. Plan: Continue normal saline at 75 mL an hour. Hold lisinopril and Lasix for now. Maintain current antihypertensives. Hold antihypertensives for systolic blood pressure less than 120. Maintain Grullon catheter. Repeat electrolytes in the morning. Follow-up cultures. Check chest x-ray. No urgent need for renal replacement therapy at this time. In view of patient's overall condition and comorbidities, he will not able to tolerate a kidney biopsy at this time.
[2017-08-17 11:14] LABS: Basophils % (A) 0 %; Eosinophils # (A) 0.2 k/uL (0-0.7); Eosinophils % (A) 2 %; HCT 35.9 % (39.0-53.0); HGB 11.4 gm/dL (13.0-17.5); Lymphocytes # (A) 0.8 k/uL (1.0-4.8); Lymphocytes % (A) 7 %; MCH 27.9 pg (25.0-35.0); MCHC 31.7 g/dL (31.0-37.0); Mean Platelet Volume 8.6; Monocytes # (A) 0.7 k/uL (0-1.0); Monocytes % (A) 6 %; Neutrophils # (A) 10.1 k/uL (1.3-7.7); Neutrophils % (A) 84 %; Platelet Count 151 k/uL (150-450); RBC 4.08 m/uL (4.30-5.90); RDW 14.6 % (11.5-15.5); WBC 12.1 k/uL (3.8-10.6)
[2017-08-17 11:17] LABS: Glucose,Whole Blood 135 mg/dL (75-99)
[2017-08-17 11:33] LABS: Albumin 2.2 g/dL (3.5-5.0); Calcium 8.1 mg/dL (8.4-10.2); Potassium 4.6 mmol/L (3.5-5.1); Total Bilirubin 0.3 mg/dL (0.2-1.3)
[2017-08-17] MEDS ORDERED: DEXTROSE 5% IN WATER 1,000 ML IV ONE (11:42)
[2017-08-17] MEDS: PANTOPRAZOLE 40 MG/10 ML VIAL IVP SCH (12:26)
[2017-08-17] MEDS: levETIRAcetam IV 750 MG in SODIUM CHLORIDE 0.9% 100 ML IVPB SCH ×2 (13:39→22:22)
[2017-08-17] MEDS: amLODIPine 5 MG TAB PO SCH (14:15)
[2017-08-17] MEDS: SODIUM BICARBONATE TAB 650 MG TAB PO SCH (14:15)
[2017-08-17] MEDS: PIPERACILLIN-TAZOBACTAM 3.375 GM in DEXTROSE/WATER 1 50ML.BAG IVPB SCH ×2 (14:16→23:13)
--- NOTE | 2017-08-17 14:40 | P.PN ---
Subjective Progress Note Date: 08/17/17 This is a 71-year-old male one of Dr. Lucas Gallo's patient with past medical history of hypertension, hyperlipidemia, diabetes, COPD, ,CHF , alcoholism and worsening heart failure who had open heart surgery with the CABG 2015 ended up having multiple complications and the multiple rehospitalization for worsening shortness of breath, A. fib and other complication. He was last hospitalized on 05/06/2016 at which time he was here for bradycardia and beta kojo was discontinued. He was sent in after neighbor found him in bed very weak, apparently patient has not gotten out of bed for 2 days. The neighbor checks on him on a daily basis, however on her return trip, he hasn't moved out of bed and has soiled himself stooled himself, and hasn't eaten for approximately 48 hours. Patient has difficulty in getting out of bed difficulty ambulating, his son who normally is sees constantly complaining at home, apparently admitted hospital hence no one was caring for the patient except for a visit from a neighbor. Patient has had cough, some wheezing, stiffness of the joint, difficulty in ambulating, patient hasn't had his medications for 2 days as well 08/12: Echocardiogram reveals EF of 50-55% with moderate concentric left ventricular hypertrophy, LA severely dilated at greater than 40, are appears enlarged, mild mitral calcification, mild mitral regurgitation, mild tricuspid regurgitation. Patient has been seen and evaluated by cardiology. Beta kojo was not started due to history of symptomatic bradycardia. Aspirin 81 mg was added. Patient no longer on Coumadin most likely due to risk of bleeding. White count is improved to 20.1. BUN is 63 and creatinine 2.8. TSH is 2.940. Patient is decreased mental status today. Staff was unable to feed him today. His blood pressure is stable. [place] will be changed to half a tablet which is 2.5 mg 3 times daily as needed. Keppra level will be checked in the morning as well as EEG ordered. Patient has been afebrile. PT has recommended subacute rehab. 08/13: Patient improved slightly yesterday evening where he was able to tolerate his dinner and he ate 80% of his dinner. Patient today is still lethargic but open his eyes to voice command following simple commands like moving his extremities up and down 08/14: Patient continued to have adequate urine output with a slight improvement in kidney function. Patient is improved from the mental status standpoint where he is more awake and following simple commands but looks lethargic overall. No major events reported by nursing staff 08/15: Patient was evaluated today, he underwent abdominal/bladder ultrasound, exam revealed limited exam but otherwise normal. Cardiology on consult, who discontinued his amlodipine do to hypotension. Blood pressure did improve to 132/67 today. Creatinine function slightly increased from previous, today 3.3, nephrology consult, recommends to continue with IV hydration, continue to hold lisinopril Lasix. Blood cultures show no growth to date. 08/16: Patient is still lethargic for nurse. Speech therapy has evaluated and made him nothing by mouth as he is too lethargic to eat. Keppra and Protonix changed to IV. Clonidine patch added for blood pressure control. He is continued on IV fluids at 75 mL per hour. Oral medications have been discontinued until patient is more alert. Creatinine is 3.25. Last bowel movement was 2 days ago. He has had good urine output. Repeat urinalysis shows signs of infection and patient is already on Zosyn. Consult with neurology added. 08/17: Patient has been seen by Dr. Presley with thought that metabolic encephalopathy secondary to sepsis and renal failure. CT of the brain revealed no acute intracranial hemorrhage or midline shift. No acute intracranial process. Multifocal lacunar injuries old-appearing old. Diffuse age-related triple atrophy and chronic small vessel ischemic change. Patient remains essentially unresponsive. Clonidine was increased last evening for high blood pressure. Due to elevated sodium IV fluids will be switched to D5W at 75 mL per hour. NG tube to be placed for tube feedings and consult with dietitian. Objective - Vital Signs Vital signs: Vital Signs Temp 97.6 F 08/17/17 01:05 Pulse 80 08/17/17 08:02 Resp 20 08/17/17 07:10 BP 177/71 08/17/17 07:10 Pulse Ox 98 08/17/17 07:10 Intake & Output 08/16/17 08/17/17 08/17/17 18:59 06:59 18:59 Intake Total 300 225 Output Total 500 Balance 300 -275 Weight 81 kg Intake: IV 300 225 Sodium Chloride 0.9% 1, 300 225 000 ml @ 75 mls/hr IV . [id number] [facility] Rx#:[id number] Output: Urine 500 Uretheral ([place]) 500 Other: Voiding Method Indwelling Catheter Indwelling Catheter - Exam General appearance: cooperative, no acute distress, thin - EENT Eyes: anicteric sclerae, EOMI, PERRLA, dentition normal ENT: hard of hearing, NA/AT, normal oropharynx - Neck Neck: no lymphadenopathy, normal ROM, no other, no rigidity, no stridor, no thyromegaly - Respiratory Respiratory: bilateral: CTA, diminished, negative: dullness, rales, rhonchi, wheezing, prolonged expiration - Cardiovascular Rhythm: regular Heart sounds: normal: S1, S2 - Gastrointestinal General gastrointestinal: normal bowel sounds, soft - Integumentary Stage I decubitus ulcer sacrum Integumentary: decreased turgor, normal - Neurologic Neurologic: CNII-XII intact - Musculoskeletal Musculoskeletal: generalized weakness, strength equal bilaterally - Psychiatric Psychiatric: A&O x's 0, no appropriate affect, no intact judgment & insight - Labs CBC & Chem 7: 08/17/17 10:58 08/17/17 10:58 Labs: Abnormal Lab Results - Last 24 Hours (Table) 08/15/17 08/16/17 08/16/17 Range/Units 10:32 11:44 16:39 POC Glucose (mg/dL) 164 H 165 H (75-99) mg/dL Albumin (PEP) 1.94 L (3.80-4.90) g/dL Free Chillum LC, Quant 9.53 H (0.33-1.94) mg/dL Free Lambda LC, Quant 8.05 H (0.57-2.63) mg/dL 08/16/17 08/17/17 Range/Units 20:18 06:42 POC Glucose (mg/dL) 138 H 128 H (75-99) mg/dL Albumin (PEP) (3.80-4.90) g/dL Free Chillum LC, Quant (0.33-1.94) mg/dL Free Lambda LC, Quant (0.57-2.63) mg/dL Microbiology - Last 24 Hours (Table) 08/16/17 10:30 Urine Culture - Preliminary Urine,Catheterized 08/11/17 11:35 Blood Culture - Preliminary Blood No Growth after 120 hours Assessment and Plan Plan: 1. Metabolic encephalopathy with sepsis of unclear source aspiration pneumonia is differential vs community acquired pneumonia, UTI. Continue Zosyn with cultures to be obtained blood in urine. [place] discontinued. Speech therapy has evaluated and made him nothing by mouth as he is too lethargic to eat. Keppra and Protonix changed to IV. Clonidine patch added for blood pressure control. 2. Elevated troponin, secondary to sepsis 3. Arrhythmia history with prior Nonsustained ventricular tachycardia on 2015 H and was seen by cardiology echocardiogramJuly 2016 showed atrial fibrillation with small pericardial effusion noted ejection fraction 45-50% inferolateral hypokinesis with palpation of LA size over 40. Electrolyte management is optimized 4. History bilateral hydronephrosis mild, improved from last ultrasound history Phimosis with urinary retention resolved monitor for urinary retention continue tamsulosin 5. CAD post CABG. continue aspirin 81 mg orally once every day, 6. Diabetes mellitus type II: Has been on Lantus at 20 units at bedtime along with pre-meal however with the sugars being low, and Lantus on hold , NovoLog sliding scale, current sugars are low 7. Hypertensive cardiovascular disease. Clonidine patch increased. 8. Hyperlipidemia: On Lipitor 40 mg orally once every day. 9. Chronic A. fib. Patient is no longer on Coumadin. This may be related to risk of falls. 10. Chronic systolic heart failure. She does normally on Imdur 30 mg orally once every day, hydralazine 75 mg orally twice a day, lisinopril 20 mg a day, Norvasc 5 mg daily.Lasix 40 mg a day 11. Recurrent depression: Has been on Prozac 20 mg daily.Xanax at bedtime 12. Seizure history: Has been on Keppra 750 g twice a day with no new seizure activity. CHeck Keppra level. Keppra changed to IV. 13. BPH: Continue patient on Flomax 0.4 mg daily. Monitor for urinary retention, check for postvoid residual symptoms have resolved 14. Severe GERD: Will add Protonix 40 mg daily\ 15. Rhabdomyolysis, hold Lipitor for a few days until CPK would subside 16. Proteinuria 17. History of left Armas's policy improved symptoms last admission October 2015 18. Sacral decubitus stage I secondary to prolonged immobilization , overlay mattress and frequent turning 19. Hepatitis A exposure, son, hepatitis panel is negative 20. Hypernatremia. Patient started on IV fluids of D5W at 75 mL per hour. 21. Moderate protein calorie malnutrition due to lack of oral intake. Patient will have NG tube placed and tube feeding started. Dietitian consult requested. Discharge plan: Subacute rehab Impression and plan of care have been directed as dictated by the signing physician. Carly Greene nurse practitioner acting as scribe for signing physician.
--- NOTE | 2017-08-17 15:27 | XR ---
EXAMINATION TYPE: XR chest 2V DATE OF EXAM: 08/17/2017 COMPARISON: 08/11/2017 TECHNIQUE: PA and lateral views submitted. HISTORY: Shortness of breath FINDINGS: NG tube is seen coursing into the left upper abdomen likely within the stomach. Prominent interstitium with bilateral consolidation and pleural effusion. Heart enlarged and there is postoperative change but no pneumothorax. Arthropathy of the shoulders. IMPRESSION: 1. Bilateral infiltrate and pleural effusion correlate for CHF. 2. NG tube is seen coursing into the left upper quadrant likely within the stomach.
[2017-08-17] MEDS ORDERED: FUROSEMIDE 10 MG/ML 4 ML VIAL IV STA (16:09)
[2017-08-17 16:22] LABS: INR 1.1 (<1.2); Partial Thromboplastin Time 24.7 sec (22.0-30.0); Prothrombin Time 10.7 sec (9.0-12.0)
[2017-08-17 16:36] LABS: Glucose,Whole Blood 145 mg/dL (75-99)
--- NOTE | 2017-08-17 19:50 | P.PCN ---
Date of Procedure: 08/17/17 Preoperative Diagnosis: Altered mental status Postoperative Diagnosis: Same Procedure(s) Performed: Diagnostic LP Implants: N/A Anesthesia: local (No IV sedation given) Surgeon: Sunil Mead Estimated Blood Loss (ml): 0 IV fluids (ml): 20 Urine output (ml): 0 (Not recorded) Pathology: other (4 sample tubes numbered 1-4. ~4.5,3.5,3.5, and 4.5cc clear untinged CSF) Condition: stable Disposition: floor Indications for Procedure: Altered Mental status Operative Findings: Clear untinged CSF Description of Procedure: After a "time out" was performed and with the patient in a L lateral decubitus position, the lumbar back was sterilely prepped and draped. Approximately 0.1 mL of 1% plain lidocaine was used to raise a skin wheal over the L3 4 interspace. A 20-gauge quinke spinal needle was then atraumatically advanced in the midline into the spinal canal. 4.5, 3.5, 3.5, and 4.5 mL of clear untinged spinal fluid was then collected in specimen tubes numbered 1 through 4 sequentially. The LP site was then dressed with a simple Band-Aid. The patient was discharged back to the floor in the same condition in which he arrived arrived for his LP in the recovery room which is to say, somewhat obtunded but verbally responsive.
[2017-08-17] MEDS: hydrALAZINE HCL 20 MG/ML 1 ML VIAL IVP PRN (20:12)
[2017-08-17 20:14] LABS: Glucose,CSF 111 mg/dL (40-70); Total Protein,CSF 27 mg/dL (12-60)
[2017-08-17 20:35] LABS: Appearance,CSF Clear; CSF Tube Number 1; CSF Tube Volume 4.5
[2017-08-17 20:36] LABS: Appearance,CSF Clear; CSF Tube Number 4; CSF Tube Volume 4.75; Nucleated Cells, CSF 0 u/L (0-5); Nucleated Cells, CSF 3 u/L (0-5); Red Blood Cell, CSF Fresh 100 %; Red Blood Cell,CSF 31 u/L (0-10); Red Blood Cell,CSF 4 u/L (0-10)
[2017-08-17 20:48] LABS: Glucose,Whole Blood 157 mg/dL (75-99)
[2017-08-17] MEDS: ENOXAPARIN 30 MG/0.3 ML SYRINGE SQ SCH (21:51)
[2017-08-17] MEDS: cloNIDine 0.3 MG/24HR PATCH 1 PATCH PATCH TRANSDERM SCH (21:51)
--- NOTE | 2017-08-17 23:10 | P.PN ---
Subjective Progress Note Date: 08/17/17 The patient is a 71-year-old man admitted to the hospital with sepsis leukocytosis renal failure and multiple medical problems. He is slightly more awake today. He is able to speak. He is complaining of pain throughout his body. He is following commands. He is still generally diffusely weak. He does follow commands. He underwent a LP today and results so far unremarkable. He has a history of seizures but no reported seizures during hospital stay. His Keppra level is therapeutic and his EEG did not show any seizure activity. Overall there is improvement in his mental status today compared to yesterday. Objective - Vital Signs Vital signs: Vital Signs Temp 97.9 F 08/17/17 18:59 Pulse 105 H 08/17/17 21:37 Resp 18 08/17/17 19:35 BP 152/86 08/17/17 21:37 Pulse Ox 95 08/17/17 19:53 Intake & Output 08/17/17 08/17/17 08/18/17 06:59 18:59 06:59 Intake Total 225 Output Total 500 590 Balance -275 -590 Weight 81 kg Intake: IV 225 Sodium Chloride 0.9% 1, 225 000 ml @ 75 mls/hr IV . [id number] [facility] Rx#:[id number] Output: Urine 500 590 Uretheral ([place]) 500 590 Other: Voiding Method Indwelling Catheter Indwelling Catheter - Constitutional General appearance: Present: mild distress - Respiratory Respiratory: bilateral: rhonchi - Cardiovascular Rhythm: regular - Neurologic Neurologic Comment(s): Mental status the patient remains with his eyes closed but is able to talk today. He is oriented to person and place. He is speaking and states that he is in pain throughout his body. He is asking for pain medication. He is able to follow simple commands. There is no a aphasia or dysarthria Neurologic: Present: CNII-XII intact - Musculoskeletal Musculoskeletal: Present: generalized weakness - Labs CBC & Chem 7: 08/17/17 10:58 08/17/17 10:58 Labs: Abnormal Lab Results - Last 24 Hours (Table) 08/17/17 08/17/17 08/17/17 Range/Units 06:42 10:58 10:58 WBC 12.1 H (3.8-10.6) k/uL RBC 4.08 L (4.30-5.90) m/uL Hgb 11.4 L (13.0-17.5) gm/dL Hct 35.9 L (39.0-53.0) % Neutrophils # 10.1 H (1.3-7.7) k/uL Lymphocytes # 0.8 L (1.0-4.8) k/uL Sodium 150 H (137-145) mmol/L Chloride 117 H (98-107) mmol/L Carbon Dioxide 20 L (22-30) mmol/L BUN 55 H (9-20) mg/dL Creatinine 3.07 H (0.66-1.25) mg/dL Glucose 131 H (74-99) mg/dL POC Glucose (mg/dL) 128 H (75-99) mg/dL Calcium 8.1 L (8.4-10.2) mg/dL ALT 19 L (21-72) U/L Total Protein 5.0 L (6.3-8.2) g/dL Albumin 2.2 L (3.5-5.0) g/dL CSF RBC (0-10) u/L CSF Glucose (40-70) mg/dL 08/17/17 08/17/17 08/17/17 Range/Units 11:15 16:34 19:20 WBC (3.8-10.6) k/uL RBC (4.30-5.90) m/uL Hgb (13.0-17.5) gm/dL Hct (39.0-53.0) % Neutrophils # (1.3-7.7) k/uL Lymphocytes # (1.0-4.8) k/uL Sodium (137-145) mmol/L Chloride (98-107) mmol/L Carbon Dioxide (22-30) mmol/L BUN (9-20) mg/dL Creatinine (0.66-1.25) mg/dL Glucose (74-99) mg/dL POC Glucose (mg/dL) 135 H 145 H (75-99) mg/dL Calcium (8.4-10.2) mg/dL ALT (21-72) U/L Total Protein (6.3-8.2) g/dL Albumin (3.5-5.0) g/dL CSF RBC (0-10) u/L CSF Glucose 111 H (40-70) mg/dL 08/17/17 08/17/17 Range/Units 19:20 20:28 WBC (3.8-10.6) k/uL RBC (4.30-5.90) m/uL Hgb (13.0-17.5) gm/dL Hct (39.0-53.0) % Neutrophils # (1.3-7.7) k/uL Lymphocytes # (1.0-4.8) k/uL Sodium (137-145) mmol/L Chloride (98-107) mmol/L Carbon Dioxide (22-30) mmol/L BUN (9-20) mg/dL Creatinine (0.66-1.25) mg/dL Glucose (74-99) mg/dL POC Glucose (mg/dL) 157 H (75-99) mg/dL Calcium (8.4-10.2) mg/dL ALT (21-72) U/L Total Protein (6.3-8.2) g/dL Albumin (3.5-5.0) g/dL CSF RBC 31 H (0-10) u/L CSF Glucose (40-70) mg/dL Microbiology - Last 24 Hours (Table) 08/17/17 19:20 CSF Culture - Preliminary Cerebral Spinal Fluid 08/11/17 11:35 Blood Culture - Final Blood No Growth after 144 hours 08/16/17 10:30 Urine Culture - Preliminary Urine,Catheterized Yeast species Assessment and Plan (1) Metabolic encephalopathy Current Visit: Yes Status: Acute SNOMED Code(s): 89589402 (2) Acute kidney injury superimposed on chronic kidney disease Current Visit: Yes Status: Acute SNOMED Code(s): 41008359 (3) History of seizures Current Visit: Yes Status: Chronic SNOMED Code(s): 102723907 (4) Coronary artery disease Current Visit: No Status: Chronic Code(s): I25.10 - ATHSCL HEART DISEASE OF [place] CORONARY ARTERY W/O ANG PCTRS SNOMED Code(s): 69653564 Plan: The patient is a 71-year-old man with metabolic encephalopathy general weakness acute kidney injury superimposed on chronic kidney disease, heart disease and history of seizures. He has multiple medical problems and is being treated for pneumonia. He had a spinal tap today which has so far is unremarkable. His mental status is improved today compared to yesterday. He is more awake he is answering questions he is following commands but he is still keeping his eyes closed and generally weak. He is scheduled for an MRI brain tomorrow.
--- NOTE | 2017-08-18 00:05 | CONS ---
CONSULTATION DATE OF SERVICE: 08/17/2017. REASON FOR CONSULTATION: Sepsis. HISTORY OF PRESENT ILLNESS: The patient is a 71-year-old male who was brought into the ER at [facility] about 6 days ago on 08/11/2017 with chief complaint of generalized weakness. Apparently the patient has been taken care of at home by his son, however, the patient's son is currently admitted to the hospital himself. The neighbor went to check on him and he noted that the patient was so weak that he was unable to move from the chair. He had urinated all over himself with generalized weakness and inability to get up and move around. The patient was brought into the ER. The patient has been evaluated by the ER physician. The patient did have a chest x-ray that showed chronic interstitial density, right mid lung base, but no acute infiltrate. The patient has been afebrile throughout this hospital stay. He did have significant elevated white count on admission of 29.3, that has shown a gradual decrease, and was up to 11.6 yesterday, 12.1 today. Patient's admission UA was not significantly positive, however, repeat urine done on 08/15 was significantly positive with large leukocyte esterases with more than 1 to 2 WBC, many bacteria. Cultures currently pending. The patient also noticed to have worsening of his kidney function with a creatinine of 2.5, but is up to 3.07, but at one time was elevated at 3.55. The patient seemed to be getting weak and lethargic and unable to get up for which Neurology was consulted yesterday and Infectious Disease was consulted today for further recommendation regarding possible sepsis and metabolic encephalopathy. All of this information has been obtained from thorough review of the chart and talking to nursing staff. The patient is currently is totally unresponsive and was unable to provide any reliable history. He did have a CT of the brain done yesterday which showed no acute intracranial hemorrhage, but focal recurrent injuries, all appearing old. Diffuse age-related atrophy. REVIEW OF SYSTEMS: Could not be reliably obtained. The positive points have been mentioned in HPI. PAST MEDICAL HISTORY: Significant for atrial fibrillation, coronary artery disease, heart failure, COPD, diabetes mellitus, gastroesophageal reflux disease, hypertension, hyperlipidemia, VA, osteoarthritis, history of prostate disorder, seizure disorder, sleep apnea, TIA, CVA. PAST SURGICAL HISTORY: Coronary bypass grafting, heart catheterization, bladder surgery. SOCIAL HISTORY: Remote history of smoking, quit back in 2012. Social drinker, no drug use. FAMILY HISTORY: Father has history of dementia and VA. Mother has dementia and VA. ALLERGIES: INFLUENZA VACCINE. MEDICATIONS: The patient is currently on DuoNeb, Pulmicort, Catapres, Lovenox, hydralazine, NovoLog, Trandate, Protonix and . EXAMINATION: Blood pressure is 184/93 with a pulse of 104, temperature of 97.9, currently 92% on 3 L nasal cannula. GENERAL DESCRIPTION: Elderly male lying in bed in no distress. No tachypnea or accessory muscle of respiration use. HEENT: Shows slight pallor. No scleral icterus. Oral mucosa is dry. NECK: Trachea central. No thyromegaly. LUNGS: Unlabored breathing with decreased breath sounds at the bases. No wheeze or crackle. HEART: S1, S2. Regular rate and rhythm. ABDOMEN: Soft, no tenderness. No guarding or rigidity. No organomegaly. EXTREMITIES: No edema of the feet. SKIN: No rash or mass palpable. NEUROLOGIC: The patient remains to be unresponsive, unable to wake him up. Neck was supple. No signs of meningeal irritation. Further neuro exam could not be completed. LABS: Hemoglobin 11.4 with white count 5.1, BUN of 55, creatinine of 3.37, electrolytes have been normal. Hepatitis panel has been negative. X-ray report as mentioned above. DIAGNOSTIC IMPRESSION AND PLAN: The patient is currently admitted to the hospital with generalized weakness. The patient did have significantly elevated white count on admission, this seems to have shown overall improvement. However, the patient did have significant mental status changes, could be more likely metabolic encephalopathy. The patient did have evidence of worsening of his kidney function. Clinically doubt significant infection as the patient remains to be afebrile and has been hemodynamically stable, not requiring any pressor support. The patient did have a positive UA, underlying UTI infection could be etiology, with concern for possible pneumonitis though the x-rays did shows bilateral infiltrate and pleural effusion, correlate for CHF, and significant consolidation. [employer] infection is not entirely excluded. PLAN: 1. Stat PT, PTT has been obtained, I did request Anesthesia for doing lumbar puncture. CSF examination should be sent for cell count, differential, glucose, protein, HSV, DNA by PCR. 2. We will keep the patient on empiric Zosyn while waiting for the culture to finalize and for his condition to stabilize. 3. Depending upon his clinical course and culture results, will adjust her medications further if needed. Thank you for this consultation. Will follow this patient along with you. RUBY / MARÍA ELENAN: [id number] /
[2017-08-18] MEDS ORDERED: FUROSEMIDE 10 MG/ML 4 ML VIAL ONE (00:45)
[2017-08-18] MEDS: LABETALOL 5 MG/ML VIAL MDV IVP SCH ×6 (00:47→20:20)
--- NOTE | 2017-08-18 01:06 | XR ---
EXAMINATION TYPE: XR chest 1V portable DATE OF EXAM: 08/18/2017 COMPARISON: 08/17/2017 HISTORY: Short of breath TECHNIQUE: Single frontal view of the chest is obtained. FINDINGS: Heart is enlarged. There is pulmonary vascular congestion. There is blunting of costophren ic angles. There is a nasogastric tube that appears in good position. Thoracic aorta is atheromatous. There are sternal wires. IMPRESSION: Congestive heart failure with small pleural effusions. There is decreased pleural fluid on the left side compared to old exam.
[2017-08-18 01:11] LABS: Basophils % (A) 0 %; Eosinophils # (A) 0.2 k/uL (0-0.7); Eosinophils % (A) 1 %; HCT 40.4 % (39.0-53.0); HGB 12.5 gm/dL (13.0-17.5); Lymphocytes # (A) 0.7 k/uL (1.0-4.8); Lymphocytes % (A) 5 %; MCH 27.2 pg (25.0-35.0); MCV 87.5 fL (80.0-100.0); Monocytes # (A) 0.9 k/uL (0-1.0); Monocytes % (A) 6 %; Neutrophils # (A) 13.9 k/uL (1.3-7.7); Neutrophils % (A) 87 %; Platelet Count 184 k/uL (150-450); RBC 4.62 m/uL (4.30-5.90); RDW 14.7 % (11.5-15.5)
[2017-08-18 01:21] LABS: Calcium 8.5 mg/dL (8.4-10.2); Potassium 4.3 mmol/L (3.5-5.1)
[2017-08-18] MEDS: hydrALAZINE HCL 20 MG/ML 1 ML VIAL IVP PRN (03:01)
[2017-08-18] MEDS ORDERED: NALOXONE 0.4 MG/ML 1 ML VIAL IV PRN (03:01)
[2017-08-18] MEDS ORDERED: PROPOFOL 100 ML IV ONE (03:39)
[2017-08-18] MEDS ORDERED: SUCCINYLCHOLINE CHLORIDE 100 MG/5 ML SYR IV ONE (03:55)
[2017-08-18] MEDS ORDERED: PROPOFOL 10 MG/ML 20 ML VIAL IV ONE (03:55)
--- NOTE | 2017-08-18 04:09 | CT ---
EXAM: CT Head Without Intravenous Contrast CLINICAL HISTORY: Transfer to ICU TECHNIQUE: Axial computed tomography images of the head/brain without intravenous contrast. CTDI is 57.4 MGy and DLP is 1184.9 mGy-cm. This CT exam was performed using one or more of the following dose reduction techniques: automated exposure control, adjustment of the mA and/or kV according to patient size, and/or use of iterative reconstruction technique. COMPARISON: 08/17/2017 FINDINGS: Subtle area of increased increase low attenuation suggested in the right internal capsule (series 9 image 32 through 34) . This could represent simple difference in positioning, however the possibility of a evolving small infarct is to be considered. No evidence for hemorrhage or hematoma No mass effect or midline shift. Paranasal sinus unremarkable Stable appearance to pontine infarct stable appearance to small vessel ischemic changes periventricular white matter elsewhere as well as stable appearance to left frontal lobe infarct . IMPRESSION: Possible evolving acute subacute infarct in the genuine of the internal capsule on the right. This has a subtle increase in size compared to prior study
[2017-08-18] MEDS ORDERED: PROPOFOL 1,000 MG in EMPTY BAG 1 BAG IV SCH (04:45)
[2017-08-18 04:51] LABS: Basophils % (A) 0 %; Eosinophils # (A) 0.2 k/uL (0-0.7); Eosinophils % (A) 1 %; HCT 40.1 % (39.0-53.0); HGB 12.8 gm/dL (13.0-17.5); Lymphocytes # (A) 0.6 k/uL (1.0-4.8); Lymphocytes % (A) 3 %; MCH 27.9 pg (25.0-35.0); MCHC 31.8 g/dL (31.0-37.0); MCV 87.8 fL (80.0-100.0); Mean Platelet Volume 7.7; Monocytes # (A) 0.9 k/uL (0-1.0); Monocytes % (A) 5 %; Neutrophils # (A) 18.2 k/uL (1.3-7.7); Neutrophils % (A) 90 %; Platelet Count 196 k/uL (150-450); RBC 4.57 m/uL (4.30-5.90); RDW 14.8 % (11.5-15.5); WBC 20.2 k/uL (3.8-10.6)
[2017-08-18 04:59] LABS: Calcium 8.3 mg/dL (8.4-10.2); Magnesium 2.2 mg/dL (1.6-2.3); Phosphorus 4.4 mg/dL (2.5-4.5); Potassium 4.5 mmol/L (3.5-5.1)
--- NOTE | 2017-08-18 05:01 | XR ---
EXAM: XR Chest, 1 View CLINICAL HISTORY: ITS.REASON XR Reason: intubation TECHNIQUE: Frontal view of the chest. COMPARISON: 08/17/17 1514 hrs. FINDINGS: Lungs: Prominent interstitial markings. Mildly decreased bibasilar opacities, mostly on the left side Pleural space: Unremarkable. No pneumothorax. Heart: Stable cardiomediastinal silhouette. Mediastinum: See above. Bones/joints: Unremarkable. Tubes, lines and devices: New endotracheal tube. Tip 4.5 cm above the jesse. Stable enteric tube with tip in the proximal stomach. IMPRESSION: 1. New endotracheal tube with the tip 4.5 cm above the jesse. 2. Similar interstitial prominence. Mild basilar opacities, mostly on the left side. Mildly decreased
[2017-08-18 05:32] LABS: Appearance,Urine Cloudy (Clear); Bilirubin,Urine Negative (Negative); Blood,Urine Moderate (Negative); Budding Yeast,Urine Moderate /hpf; Color,Urine Light Yellow; Glucose,Urine (UA) Negative (Negative); Hyaline Casts,Urine 5 /lpf (0-2); Ketones,Urine Negative (Negative); Leukocyte Esterase,Urine Large (Negative); Mucus,Urine Rare /hpf; Nitrite,Urine Negative (Negative); PH, Urine 5.5 (5.0-8.0); Protein,Urine 2+ (Negative); RBC,Urine >182 /hpf (0-5); Specific Gravity,Urine 1.012 (1.001-1.035); Urobilinogen,Urine <2.0 mg/dL (<2.0); WBC,Urine >182 /hpf (0-5)
[2017-08-18] MEDS: PIPERACILLIN-TAZOBACTAM 3.375 GM in DEXTROSE/WATER 1 50ML.BAG IVPB SCH ×3 (06:36→21:23)
[2017-08-18 08:05] LABS: ABG Base Excess -5.4 mmol/L; ABG HCO3 21 mmol/L (21-25); ABG Oxygen Saturation 99.8 % (94-97); ABG PCO2 40 mmHg (35-45); ABG PH 7.32 (7.35-7.45); ABG PO2 >400 mmHg (83-108); ABG TCO2 22 mmol/L (19-24)
[2017-08-18] MEDS: IPRATROPIUM-ALBUTEROL 3 ML NEB INHALATION SCH ×4 (08:11→19:30)
[2017-08-18] MEDS: BUDESONIDE 0.5 MG/2 ML NEBU INHALATION SCH ×2 (08:11→19:30)
[2017-08-18 08:28] LABS: Glucose,Whole Blood 150 mg/dL (75-99)
[2017-08-18] MEDS: INSULIN ASPART 100 UNIT/ML 1 ML 10 ML VIAL SQ SCH ×4 (08:28→20:21)
[2017-08-18] MEDS: PANTOPRAZOLE 40 MG/10 ML VIAL IVP SCH (08:29)
[2017-08-18] MEDS: CHLORHEXIDINE GLUCONATE 15 ML CUP MUCOUS MEM SCH ×2 (08:29→20:46)
[2017-08-18] MEDS ORDERED: FUROSEMIDE 10 MG/ML 4 ML VIAL IV STA (09:30)
--- NOTE | 2017-08-18 10:06 | P.PN ---
Subjective Patient is seen in follow-up for acute kidney injury. His creatinine in May 2016 was near 1.2. This admission his creatinine was 2.5 and peaked at 3.5 as of August 13. Lisinopril and diuretics were discontinued. Creatinine 3.1 today. He has a Grullon catheter in place for urinary retention. Hemodynamically stable. Denies vomiting or diarrhea. Oral intake is poor. He is quite lethargic and doesn't respond much to verbal commands. Patient was noted to be more obtunded on August 17 and was subsequently intubated and transferred to the intensive care unit. Repeat computed tomography scan revealed possible resolving subacute infarct. He also underwent a lumbar puncture. Vital signs are stable. General: The patient appeared well nourished and normally developed. Currently intubated. HEENT: Head exam is unremarkable. Neck is without jugular venous distension. LUNGS: Lungs are clear to auscultation and percussion. Breath sounds decreased. HEART: Rate and Rhythm are regular. First and second heart sounds normal. No murmurs, rubs or gallops. ABDOMEN: Abdominal exam reveals normal bowel sounds. Non-tender and non- distended. No evidence of peritonitis. EXTREMITITES: No clubbing, cyanosis, or edema. Objective - Vital Signs Vital signs: Vital Signs Temp 99.0 F 08/18/17 08:00 Pulse 73 08/18/17 09:00 Resp 13 08/18/17 09:00 BP 99/61 08/18/17 09:00 Pulse Ox 99 08/18/17 09:00 Intake & Output 08/17/17 08/18/17 08/18/17 18:59 06:59 18:59 Intake Total 75 160.0 Output Total 730 115 Balance -655 45.0 Weight 81 kg 74.1 kg 74.1 kg Intake: IV 75 135 Dextrose 5% in Water 1, 75 135 000 ml @ 75 mls/hr IV . [id number] Rx#:[id number] Intake, IV Titration 25.0 Amount Piperacillin-Tazobactam 3 25.0 .375 gm In Dextrose/Water 1 50ml.bag @ 12.5 mls/hr IVPB Q8H [facility] Rx#: [id number] Tube Feeding 0 0 Other 0 Output: Urine 730 115 Uretheral (Grullon) 590 Other: Voiding Method Indwelling Catheter Indwelling Catheter Indwelling Catheter # Bowel Movements 1 - Labs CBC & Chem 7: 08/18/17 04:32 08/18/17 04:32 Labs: Abnormal Lab Results - Last 24 Hours (Table) 08/17/17 08/17/17 08/17/17 Range/Units 10:58 10:58 11:15 WBC 12.1 H (3.8-10.6) k/uL RBC 4.08 L (4.30-5.90) m/uL Hgb 11.4 L (13.0-17.5) gm/dL Hct 35.9 L (39.0-53.0) % Neutrophils # 10.1 H (1.3-7.7) k/uL Lymphocytes # 0.8 L (1.0-4.8) k/uL ABG pH (7.35-7.45) ABG pO2 (83-108) mmHg ABG O2 Saturation (94-97) % Sodium 150 H (137-145) mmol/L Chloride 117 H (98-107) mmol/L Carbon Dioxide 20 L (22-30) mmol/L BUN 55 H (9-20) mg/dL Creatinine 3.07 H (0.66-1.25) mg/dL Glucose 131 H (74-99) mg/dL POC Glucose (mg/dL) 135 H (75-99) mg/dL Calcium 8.1 L (8.4-10.2) mg/dL ALT 19 L (21-72) U/L Total Protein 5.0 L (6.3-8.2) g/dL Albumin 2.2 L (3.5-5.0) g/dL Urine Protein (Negative) Urine Blood (Negative) Ur Leukocyte Esterase (Negative) Urine RBC (0-5) /hpf Urine WBC (0-5) /hpf Urine WBC Clumps (None) /hpf Hyaline Casts (0-2) /lpf Urine Mucus (None) /hpf Urine Yeast (Budding) (None) /hpf CSF RBC (0-10) u/L CSF Glucose (40-70) mg/dL 08/17/17 08/17/17 08/17/17 Range/Units 16:34 19:20 19:20 WBC (3.8-10.6) k/uL RBC (4.30-5.90) m/uL Hgb (13.0-17.5) gm/dL Hct (39.0-53.0) % Neutrophils # (1.3-7.7) k/uL Lymphocytes # (1.0-4.8) k/uL ABG pH (7.35-7.45) ABG pO2 (83-108) mmHg ABG O2 Saturation (94-97) % Sodium (137-145) mmol/L Chloride (98-107) mmol/L Carbon Dioxide (22-30) mmol/L BUN (9-20) mg/dL Creatinine (0.66-1.25) mg/dL Glucose (74-99) mg/dL POC Glucose (mg/dL) 145 H (75-99) mg/dL Calcium (8.4-10.2) mg/dL ALT (21-72) U/L Total Protein (6.3-8.2) g/dL Albumin (3.5-5.0) g/dL Urine Protein (Negative) Urine Blood (Negative) Ur Leukocyte Esterase (Negative) Urine RBC (0-5) /hpf Urine WBC (0-5) /hpf Urine WBC Clumps (None) /hpf Hyaline Casts (0-2) /lpf Urine Mucus (None) /hpf Urine Yeast (Budding) (None) /hpf CSF RBC 31 H (0-10) u/L CSF Glucose 111 H (40-70) mg/dL 08/17/17 08/18/17 08/18/17 Range/Units 20:28 00:55 00:55 WBC 16.0 H (3.8-10.6) k/uL RBC (4.30-5.90) m/uL Hgb 12.5 L (13.0-17.5) gm/dL Hct (39.0-53.0) % Neutrophils # 13.9 H (1.3-7.7) k/uL Lymphocytes # 0.7 L (1.0-4.8) k/uL ABG pH (7.35-7.45) ABG pO2 (83-108) mmHg ABG O2 Saturation (94-97) % Sodium 151 H (137-145) mmol/L Chloride 116 H (98-107) mmol/L Carbon Dioxide 19 L (22-30) mmol/L BUN 53 H (9-20) mg/dL Creatinine 2.90 H (0.66-1.25) mg/dL Glucose 169 H (74-99) mg/dL POC Glucose (mg/dL) 157 H (75-99) mg/dL Calcium (8.4-10.2) mg/dL ALT (21-72) U/L Total Protein (6.3-8.2) g/dL Albumin (3.5-5.0) g/dL Urine Protein (Negative) Urine Blood (Negative) Ur Leukocyte Esterase (Negative) Urine RBC (0-5) /hpf Urine WBC (0-5) /hpf Urine WBC Clumps (None) /hpf Hyaline Casts (0-2) /lpf Urine Mucus (None) /hpf Urine Yeast (Budding) (None) /hpf CSF RBC (0-10) u/L CSF Glucose (40-70) mg/dL 08/18/17 08/18/17 08/18/17 Range/Units 04:32 04:32 05:00 WBC 20.2 H (3.8-10.6) k/uL RBC (4.30-5.90) m/uL Hgb 12.8 L (13.0-17.5) gm/dL Hct (39.0-53.0) % Neutrophils # 18.2 H (1.3-7.7) k/uL Lymphocytes # 0.6 L (1.0-4.8) k/uL ABG pH (7.35-7.45) ABG pO2 (83-108) mmHg ABG O2 Saturation (94-97) % Sodium 150 H (137-145) mmol/L Chloride 116 H (98-107) mmol/L Carbon Dioxide 19 L (22-30) mmol/L BUN 57 H (9-20) mg/dL Creatinine 3.10 H (0.66-1.25) mg/dL Glucose 161 H (74-99) mg/dL POC Glucose (mg/dL) (75-99) mg/dL Calcium 8.3 L (8.4-10.2) mg/dL ALT (21-72) U/L Total Protein (6.3-8.2) g/dL Albumin (3.5-5.0) g/dL Urine Protein 2+ H (Negative) Urine Blood Moderate H (Negative) Ur Leukocyte Esterase Large H (Negative) Urine RBC >182 H (0-5) /hpf Urine WBC >182 H (0-5) /hpf Urine WBC Clumps Few H (None) /hpf Hyaline Casts 5 H (0-2) /lpf Urine Mucus Rare H (None) /hpf Urine Yeast (Budding) Moderate H (None) /hpf CSF RBC (0-10) u/L CSF Glucose (40-70) mg/dL 08/18/17 08/18/17 Range/Units 08:03 08:27 WBC (3.8-10.6) k/uL RBC (4.30-5.90) m/uL Hgb (13.0-17.5) gm/dL Hct (39.0-53.0) % Neutrophils # (1.3-7.7) k/uL Lymphocytes # (1.0-4.8) k/uL ABG pH 7.32 L (7.35-7.45) ABG pO2 >400 H (83-108) mmHg ABG O2 Saturation 99.8 H (94-97) % Sodium (137-145) mmol/L Chloride (98-107) mmol/L Carbon Dioxide (22-30) mmol/L BUN (9-20) mg/dL Creatinine (0.66-1.25) mg/dL Glucose (74-99) mg/dL POC Glucose (mg/dL) 150 H (75-99) mg/dL Calcium (8.4-10.2) mg/dL ALT (21-72) U/L Total Protein (6.3-8.2) g/dL Albumin (3.5-5.0) g/dL Urine Protein (Negative) Urine Blood (Negative) Ur Leukocyte Esterase (Negative) Urine RBC (0-5) /hpf Urine WBC (0-5) /hpf Urine WBC Clumps (None) /hpf Hyaline Casts (0-2) /lpf Urine Mucus (None) /hpf Urine Yeast (Budding) (None) /hpf CSF RBC (0-10) u/L CSF Glucose (40-70) mg/dL Microbiology - Last 24 Hours (Table) 08/17/17 19:20 CSF Gram Stain - Preliminary Cerebral Spinal Fluid CSF Culture - Preliminary 08/11/17 11:35 Blood Culture - Final Blood No Growth after 144 hours 08/16/17 10:30 Urine Culture - Preliminary Urine,Catheterized Yeast species Assessment and Plan Plan: Assessment: #1. Nonoliguric acute kidney injury secondary to ATN secondary to sepsis and hemodynamic instability. Further worsened with the use of diuretics and STACEY inhibitor. Creatinine is 2.5 on admission and peaked at 3.5 on August 13. 3.1 today. No evidence of hydronephrosis noted on renal ultrasound. UPC 2.8. Urine eosinophils negative. Rule out GN - serologies have been negative. #2. 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 #3. Urinary retention status post Grullon catheter placement. #4. Hypertension with chronic kidney disease. Blood pressures on the higher side. #5. Insulin-dependent diabetes mellitus. #6. Sepsis with likely source being pneumonia. UTI also of concern - urine culture positive for yeast. Maintained on IV antibiotics. #7. History of coronary artery disease status post CABG. #8. History of atrial fibrillation. Cardiology following. #9. Protein calorie malnutrition. #10. Diastolic CHF. #11. Metabolic acidosis secondary to acute kidney injury and IV fluids, maintained on oral sodium bicarbonate. #12. Hyponatremia secondary to lack of oral water intake. #13. Altered mental status. Concern for acute CVA. Neurology following. Plan: I will change IV fluids to D5W to be run at 100 mL an hour. Lasix 40 mg IV once today. Maintain current antihypertensives. Hold antihypertensives for systolic blood pressure less than 120. Maintain Grullon catheter. Repeat electrolytes in the morning. Follow-up cultures. In view of patient's overall condition and comorbidities, he will not able to tolerate a kidney biopsy at this time. Case discussed with the family - they are okay with proceeding with renal replacement therapy if indicated. Repeat sodium level at 5 PM today.
[2017-08-18] MEDS: levETIRAcetam IV 750 MG in SODIUM CHLORIDE 0.9% 100 ML IVPB SCH ×2 (10:13→20:46)
[2017-08-18] MEDS: DEXTROSE 5% IN WATER 1,000 ML IV SCH ×2 (10:17→18:41)
[2017-08-18 12:12] LABS: Glucose,Whole Blood 161 mg/dL (75-99)
--- NOTE | 2017-08-18 12:34 | P.CNPUL ---
History of Present Illness Consult date: 08/18/17 Requesting physician: Ericka Thompson Reason for consult: other (Acute hypoxic respiratory failure and mental status change) Chief complaint: Weakness History of present illness: This is a 71-year-old white male with history of multiple medical problems including chronic atrial fibrillation, coronary artery disease, previous CABG, congestive heart failure, COPD, diabetes, hypertension, previous non-Q-wave myocardial infarction, seizure disorder, and obstructive sleep apnea syndrome. Patient was admitted on 08/11/2017, apparently the patient lives with his son, will usually takes care of him. However his son was recently admitted to the hospital, and the patient was being checked upon by a neighbor. According to the neighbor, patient was in bed for 2 days, unable to get out of bed. He was noted to be generally weak, incontinent in bed, hence patient was brought into the ER, and he was admitted. 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 Hence I recommended immediate intubation of the patient, and transferred to the intensive care unit. I also recommended CT of the head which was done, and since then the patient underwent lumbar puncture by anesthesia. Which is so far nondiagnostic. I evaluated the patient in the ICU on mechanical ventilation, he is extremely difficult to arouse, propofol was discontinued completely, and still unable to arouse the patient. May open eyes only on deep painful stimuli, otherwise could not get any responses from the patient. ABG post intubation showed a pO2 of 400 pCO2 of 40 and pH of 7.32. CBC showed leukocytosis with WBC count of 20.2 hemoglobin of 12.8. There is evidence of hypernatremia and hyperchloremia, renal failure is not clear whether this is acute or chronic, his BUN was 57 creatinine 3.10, and there was evidence of bacteriuria, pyuria, negative workup for connective tissue disease, however the patient was noted to have gammopathy based on his serum protein electrophoresis. free kappa And lambda chains were elevated in the serum protein electrophoresis. CT of the brain was reviewed. Notes from different consultants were all reviewed looking back on previous admissions, patient had a creatinine of 1.2 in May of 2016. Again I could not obtain any medical information from the patient himself, and no family members available. Review of Systems ROS unobtainable: due to mental status Past Medical History Past Medical History: Atrial Fibrillation, Coronary Artery Disease (CAD), Heart Failure, COPD, Diabetes Mellitus, GERD/Reflux, Hyperlipidemia, Hypertension, Myocardial Infarction (non Q-wave), Musculoskeletal Disorder, Osteoarthritis (OA ), Pneumonia, Prostate Disorder, Seizure Disorder, Sleep Apnea/CPAP/BIPAP Additional Past Medical History / Comment(s): Other HX: TIA possible CVA pt us unsure, Chronic UTI'S,. CATARACTS bilaterally, GOUT,DOES'NT USE CPAP AT. HOME ,KIDNEY STONE, BULGING DISCS. home o2 3l nc at all times [place] 11/2013, arthiritis . Last Myocardial Infarction Date:: 2013 History of Any Multi-Drug Resistant Organisms: None Reported Date of last positivie culture/infection: None MDRO Source:: None Past Surgical History: Bladder Surgery, Coronary Bypass/CABG, Heart Catheterization Additional Past Surgical History / Comment(s): Cardiac cath with PTCA 12/14/13, CABG 5 vessek 01/02/14, BENIGN TUMOR ON SALIVARY GLANDS (RT) REMOVED, HAD A SUPRA PUBIC CATH IN PAST THAT GOT INFECTED ENDED UP AT [facility]. Past Anesthesia/Blood Transfusion Reactions: No Reported Reaction Past Psychological History: Depression Additional Psychological History / Comment(s): Pt lives alone denies outside services.stated left him around mar 2014. He is on home O2 at 3L/[place] all of the time. Pt is independent in his ADL's. He uses a cane most of the time. He cooks his. own food. . Pt has had home care in the past but none now. He also has friends that help him and family calls to check on him as well. Twin has been helping him. Smoking Status: Former smoker Past Alcohol Use History: None Reported Additional Past Alcohol Use History / Comment(s): STARTED SMOKING AT AGE 19 QUIT 2012 3PPD FOR 10 YEARS THEN DECREASED TO 2 PPD UNTIL HE QUIT. 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, Past Drug Use History: None Reported - Past Family History Father Family Medical History: Cancer, Dementia, Hyperlipidemia, Hypertension, Myocardial Infarction ([place]) Additional Family Medical History / Comment(s): AT AGE 78- Mother Family Medical History: No Reported History, Coronary Artery Disease (CAD), Dementia, Myocardial Infarction ([place]) Additional Family Medical History / Comment(s): AT AGE 86 Brother(s) Family Medical History: No Reported History Sister(s) Family Medical History: No Reported History, Rheumatoid Arthritis ([place]) Son(s) Family Medical History: No Reported History Daughter(s) Family Medical History: No Reported History Medications and Allergies Home Medications Medication Instructions Recorded Confirmed Type Baclofen 10 mg PO HS 04/26/14 08/11/17 History Isosorbide Mononitrate ER [Imdur] 30 mg PO DAILY 04/26/14 08/11/17 History levETIRAcetam [Keppra] 750 mg PO BID 04/26/14 08/11/17 History Atorvastatin [Lipitor] 40 mg PO HS 06/14/14 08/11/17 History Furosemide [Lasix] 40 mg PO BID tab 12/23/14 08/11/17 Rx Tamsulosin HCl [Flomax] 0.4 mg PO BID #0 12/24/14 08/11/17 Rx ALPRAZolam [Xanax] 0.25 mg PO HS 11/20/15 08/11/17 History Lisinopril [Zestril] 20 mg PO DAILY 04/18/16 08/11/17 History Omeprazole [PriLOSEC] 20 mg PO BID 04/18/16 08/11/17 History PARoxetine HCL [Paxil] 40 mg PO DAILY 04/18/16 08/11/17 History hydrALAZINE HCL [Apresoline] 75 mg PO BID 04/18/16 08/11/17 History Potassium Chloride ER [K-Dur 20] 20 meq PO DAILY 05/05/16 08/11/17 History Montelukast [Singulair] 10 mg PO DAILY 06/16/16 08/11/17 History Albuterol Inhaler [Ventolin Hfa 2 puff INHALATION RT-QID PRN 08/11/17 08/11/17 History Inhaler] Budesonide [Pulmicort] 0.5 mg INHALATION RT-BID 08/11/17 08/11/17 History HYDROcodone/APAP 5-325MG [[place] 1 tab PO TID 08/11/17 08/11/17 History 5-325] Insulin Glargine [Lantus] 20 unit SQ HS 08/11/17 08/11/17 History Ipratropium-Albuterol Nebulize 3 ml INHALATION RT-QID 08/11/17 08/11/17 History [Duoneb 0.5 mg-3 mg/3 ml Soln] Nitroglycerin Sl Tabs [Nitrostat] 0.4 mg SUBLINGUAL Q5M PRN 08/11/17 08/11/17 History amLODIPine [Norvasc] 5 mg PO DAILY 08/11/17 08/11/17 History Allergies Allergy/AdvReac Type Severity Reaction Status Date / Time adhesive AdvReac Unknown Verified 08/11/17 12:23 influenza virus vaccine, AdvReac Nausea & Verified 08/11/17 12:23 specific Vomiting & [Influenza Virus Diarrhea Vacc,Specific] Physical Exam Vitals: Vital Signs Temp Pulse Pulse Pulse Resp BP BP 08/18/17 11:40 69 08/18/17 11:23 67 08/18/17 11:09 08/18/17 11:07 98 16 08/18/17 11:00 76 16 193/96 08/18/17 10:30 75 16 183/103 08/18/17 10:00 68 15 163/92 08/18/17 09:30 71 14 137/79 08/18/17 09:00 73 13 99/61 08/18/17 08:36 76 08/18/17 08:30 84 13 120/65 08/18/17 08:15 73 08/18/17 08:00 99.0 F 74 98 18 131/69 08/18/17 07:30 77 18 135/75 08/18/17 07:00 77 19 139/75 08/18/17 06:30 76 19 142/74 08/18/17 06:00 87 20 153/82 08/18/17 05:30 78 19 149/80 08/18/17 05:00 93 20 140/82 08/18/17 04:30 99.3 F 87 21 135/70 08/18/17 04:19 90 20 122/67 08/18/17 04:05 08/18/17 03:15 83 195/102 08/18/17 03:02 99 217/121 08/18/17 02:50 99 206/126 08/18/17 02:08 78 209/116 08/18/17 01:47 78 202/116 08/18/17 01:08 78 190/113 08/18/17 00:54 78 187/90 08/18/17 00:41 110 H 225/114 08/18/17 00:40 97.5 F L 116 H 16 229/96 08/17/17 22:00 98.0 F 08/17/17 21:37 105 H 152/86 08/17/17 20:29 98 186/86 08/17/17 20:22 104 H 182/93 08/17/17 20:15 94 08/17/17 20:11 94 199/96 08/17/17 20:10 89 08/17/17 19:53 95 08/17/17 19:35 98 18 216/101 08/17/17 19:25 91 18 08/17/17 19:10 88 18 198/100 08/17/17 18:59 97.9 F 86 18 170/81 08/17/17 16:06 74 08/17/17 15:56 72 08/17/17 15:04 97.9 F 86 14 170/81 08/17/17 12:11 82 Pulse Ox 08/18/17 11:40 08/18/17 11:23 08/18/17 11:09 100 08/18/17 11:07 08/18/17 11:00 100 08/18/17 10:30 100 08/18/17 10:00 100 08/18/17 09:30 100 08/18/17 09:00 99 08/18/17 08:36 08/18/17 08:30 99 08/18/17 08:15 08/18/17 08:00 100 08/18/17 07:30 100 08/18/17 07:00 100 08/18/17 06:30 100 08/18/17 06:00 100 08/18/17 05:30 100 08/18/17 05:00 99 08/18/17 04:30 100 08/18/17 04:19 100 08/18/17 04:05 99 08/18/17 03:15 08/18/17 03:02 08/18/17 02:50 08/18/17 02:08 08/18/17 01:47 08/18/17 01:08 08/18/17 00:54 08/18/17 00:41 08/18/17 00:40 93 L 08/17/17 22:00 08/17/17 21:37 08/17/17 20:29 08/17/17 20:22 08/17/17 20:15 08/17/17 20:11 08/17/17 20:10 08/17/17 19:53 95 08/17/17 19:35 92 L 08/17/17 19:25 92 L 08/17/17 19:10 92 L 08/17/17 18:59 98 08/17/17 16:06 08/17/17 15:56 08/17/17 15:04 98 08/17/17 12:11 Intake and Output 08/17/17 08/18/17 08/18/17 22:59 06:59 14:59 Intake Total 75 385.0 Output Total 590 140 150 Balance -590 -65 235.0 Intake: IV 75 235 Dextrose 5% in Water 1, 75 235 000 ml @ 75 mls/hr IV . [id number] [facility] Rx#:[id number] Intake, IV Titration 150.0 Amount Dextrose 5% in Water 1, 100 000 ml @ 100 mls/hr IV . Q10H [facility] Rx#:[id number] Piperacillin-Tazobactam 3 50.0 .375 gm In Dextrose/Water 1 50ml.bag @ 12.5 mls/hr IVPB Q8H [facility] Rx#: [id number] Tube Feeding 0 0 Other 0 Output: Urine 590 140 150 Uretheral ([place]) 590 Other: Voiding Method Indwelling Catheter Indwelling Catheter Indwelling Catheter # Bowel Movements 1 Weight 74.1 kg 74.1 kg Physical Exam: Revealed a 71-year-old white male, cachectic, looks chronically ill on mechanical ventilation, sedated, in no form of respiratory distress at present. Head: Atraumatic, normocephalic. Eyes: Pupils are reactive to light but sluggish. No icterus is noted. Patient opens eyes only on deep painful stimuli. HEENT:[Neck is supple.] [No neck masses.] [No thyromegaly.] [No JVD.] Dry mucous membranes were noted. Chest: [Diminished breath sounds at the bases, no crackles or rhonchi or wheezes..] Cardiac Exam: [Normal S1 and S2, no S3 gallop, no murmur.] Abdomen: [Flat, Soft, nontender, no megaly, no rebound, no guarding, normal bowel sounds.] Extremities: [No clubbing, no edema, no cyanosis.] Neurological Exam: [Patient is sedated, on propofol, hence I recommended stopping propofol to assess his neurological status off sedation. Otherwise could not fully assess his neurological status presently. Psychiatric: Could not be assessed Musculoskeletal: Could not be assessed. Lymphatics: No lymphadenopathy. Results - Laboratory Findings CBC and BMP: 08/18/17 04:32 08/18/17 04:32 ABG ABG pH 7.32 (7.35-7.45) L 08/18/17 08:03 ABG pCO2 40 mmHg (35-45) 08/18/17 08:03 ABG pO2 >400 mmHg (83-108) H 08/18/17 08:03 ABG O2 Saturation 99.8 % (94-97) H 08/18/17 08:03 PT/INR, D-dimer PT 10.7 sec (9.0-12.0) 08/17/17 15:48 INR 1.1 (<1.2) 08/17/17 15:48 Abnormal lab findings: Abnormal Labs 08/11/17 08/11/17 08/11/17 11:36 11:36 11:36 WBC 29.3 H* RBC 5.96 H Hgb Hct Neutrophils # 26.2 H Lymphocytes # Monocytes # 1.5 H INR ABG pH ABG pO2 ABG O2 Saturation Sodium 146 H Chloride Carbon Dioxide BUN 53 H Creatinine 2.50 H Glucose POC Glucose (mg/dL) Hemoglobin A1c Plasma Lactic Acid [place] Calcium ALT 20 L Alkaline Phosphatase 147 H Creatine Kinase Total Creatine Kinase 596 H CK-MB (CK-2) 5.0 H* Troponin I 0.158 H* Total Protein Total Protein (PEP) Albumin 3.0 L Albumin (PEP) Vitamin B12 Urine Protein Urine Blood Ur Leukocyte Esterase Urine RBC Urine WBC Urine WBC Clumps Ur Squamous Epith Cells Urine Bacteria Hyaline Casts Urine Mucus Urine Yeast (Budding) U Random Total Protein CSF RBC CSF Glucose Free [place] LC, Quant Free Lambda LC, Quant 08/11/17 08/11/17 08/11/17 11:36 11:36 12:17 WBC RBC Hgb Hct Neutrophils # Lymphocytes # Monocytes # INR 1.2 H ABG pH ABG pO2 ABG O2 Saturation Sodium Chloride Carbon Dioxide BUN Creatinine Glucose POC Glucose (mg/dL) Hemoglobin A1c Plasma Lactic Acid [place] 2.2 H* Calcium ALT Alkaline Phosphatase Creatine Kinase Total Creatine Kinase CK-MB (CK-2) Troponin I Total Protein Total Protein (PEP) Albumin Albumin (PEP) Vitamin B12 Urine Protein 4+ H Urine Blood Moderate H Ur Leukocyte Esterase Urine RBC Urine WBC 6 H Urine WBC Clumps Ur Squamous Epith Cells 6 H Urine Bacteria Rare H Hyaline Casts Urine Mucus Urine Yeast (Budding) U Random Total Protein CSF RBC CSF Glucose Free [place] LC, Quant Free Lambda LC, Quant 08/11/17 08/11/17 08/11/17 16:34 18:21 18:21 WBC RBC Hgb Hct Neutrophils # Lymphocytes # Monocytes # INR ABG pH ABG pO2 ABG O2 Saturation Sodium Chloride Carbon Dioxide BUN Creatinine Glucose POC Glucose (mg/dL) 70 L Hemoglobin A1c Plasma Lactic Acid [place] Calcium ALT Alkaline Phosphatase Creatine Kinase Total Creatine Kinase CK-MB (CK-2) Troponin I 0.144 H* Total Protein Total Protein (PEP) Albumin Albumin (PEP) Vitamin B12 2690.0 H Urine Protein Urine Blood Ur Leukocyte Esterase Urine RBC Urine WBC Urine WBC Clumps Ur Squamous Epith Cells Urine Bacteria Hyaline Casts Urine Mucus Urine Yeast (Budding) U Random Total Protein CSF RBC CSF Glucose Free [place] LC, Quant Free Lambda LC, Quant 08/11/17 08/12/17 08/12/17 20:38 05:36 06:15 WBC 20.1 H RBC Hgb 12.6 L D Hct Neutrophils # 16.8 H Lymphocytes # Monocytes # 1.2 H INR ABG pH ABG pO2 ABG O2 Saturation Sodium Chloride Carbon Dioxide BUN Creatinine Glucose POC Glucose (mg/dL) 157 H 142 H Hemoglobin A1c Plasma Lactic Acid [place] Calcium ALT Alkaline Phosphatase Creatine Kinase Total Creatine Kinase CK-MB (CK-2) Troponin I Total Protein Total Protein (PEP) Albumin Albumin (PEP) Vitamin B12 Urine Protein Urine Blood Ur Leukocyte Esterase Urine RBC Urine WBC Urine WBC Clumps Ur Squamous Epith Cells Urine Bacteria Hyaline Casts Urine Mucus Urine Yeast (Budding) U Random Total Protein CSF RBC CSF Glucose Free [place] LC, Quant Free Lambda LC, Quant 08/12/17 08/12/17 08/12/17 06:15 11:45 16:45 WBC RBC Hgb Hct Neutrophils # Lymphocytes # Monocytes # INR ABG pH ABG pO2 ABG O2 Saturation Sodium Chloride Carbon Dioxide 21 L BUN 63 H Creatinine 2.80 H Glucose 135 H POC Glucose (mg/dL) 146 H 163 H Hemoglobin A1c Plasma Lactic Acid [place] Calcium 7.5 L ALT 20 L Alkaline Phosphatase Creatine Kinase 369 H Total Creatine Kinase CK-MB (CK-2) Troponin I Total Protein 4.9 L Total Protein (PEP) Albumin 2.0 L Albumin (PEP) Vitamin B12 Urine Protein Urine Blood Ur Leukocyte Esterase Urine RBC Urine WBC Urine WBC Clumps Ur Squamous Epith Cells Urine Bacteria Hyaline Casts Urine Mucus Urine Yeast (Budding) U Random Total Protein CSF RBC CSF Glucose Free [place] LC, Quant Free Lambda LC, Quant 08/12/17 08/13/17 08/13/17 21:04 05:55 06:42 WBC RBC Hgb Hct Neutrophils # Lymphocytes # Monocytes # INR ABG pH ABG pO2 ABG O2 Saturation Sodium Chloride Carbon Dioxide BUN Creatinine Glucose POC Glucose (mg/dL) 191 H 261 H Hemoglobin A1c 8.4 H Plasma Lactic Acid [place] Calcium ALT Alkaline Phosphatase Creatine Kinase Total Creatine Kinase CK-MB (CK-2) Troponin I Total Protein Total Protein (PEP) Albumin Albumin (PEP) Vitamin B12 Urine Protein Urine Blood Ur Leukocyte Esterase Urine RBC Urine WBC Urine WBC Clumps Ur Squamous Epith Cells Urine Bacteria Hyaline Casts Urine Mucus Urine Yeast (Budding) U Random Total Protein CSF RBC CSF Glucose Free [place] LC, Quant Free Lambda LC, Quant 08/13/17 08/13/17 08/13/17 06:42 06:42 11:47 WBC 13.0 H RBC Hgb 11.9 L Hct 37.7 L Neutrophils # 10.6 H Lymphocytes # Monocytes # INR ABG pH ABG pO2 ABG O2 Saturation Sodium Chloride Carbon Dioxide BUN 64 H Creatinine 3.55 H Glucose 268 H POC Glucose (mg/dL) 163 H Hemoglobin A1c Plasma Lactic Acid [place] Calcium 7.4 L ALT 18 L Alkaline Phosphatase Creatine Kinase Total Creatine Kinase CK-MB (CK-2) Troponin I Total Protein 4.7 L Total Protein (PEP) Albumin 2.0 L Albumin (PEP) Vitamin B12 Urine Protein Urine Blood Ur Leukocyte Esterase Urine RBC Urine WBC Urine WBC Clumps Ur Squamous Epith Cells Urine Bacteria Hyaline Casts Urine Mucus Urine Yeast (Budding) U Random Total Protein CSF RBC CSF Glucose Free [place] LC, Quant Free Lambda LC, Quant 08/13/17 08/13/17 08/14/17 16:44 20:58 05:42 WBC 11.6 H RBC 4.20 L Hgb 11.9 L Hct 36.7 L Neutrophils # 9.2 H Lymphocytes # Monocytes # INR ABG pH ABG pO2 ABG O2 Saturation Sodium Chloride Carbon Dioxide BUN Creatinine Glucose POC Glucose (mg/dL) 190 H 173 H Hemoglobin A1c Plasma Lactic Acid [place] Calcium ALT Alkaline Phosphatase Creatine Kinase Total Creatine Kinase CK-MB (CK-2) Troponin I Total Protein Total Protein (PEP) Albumin Albumin (PEP) Vitamin B12 Urine Protein Urine Blood Ur Leukocyte Esterase Urine RBC Urine WBC Urine WBC Clumps Ur Squamous Epith Cells Urine Bacteria Hyaline Casts Urine Mucus Urine Yeast (Budding) U Random Total Protein CSF RBC CSF Glucose Free [place] LC, Quant Free Lambda LC, Quant 08/14/17 08/14/17 08/14/17 05:42 06:07 11:33 WBC RBC Hgb Hct Neutrophils # Lymphocytes # Monocytes # INR ABG pH ABG pO2 ABG O2 Saturation Sodium Chloride 108 H Carbon Dioxide 21 L BUN 59 H Creatinine 3.20 H Glucose 144 H POC Glucose (mg/dL) 136 H 178 H Hemoglobin A1c Plasma Lactic Acid [place] Calcium 7.5 L ALT Alkaline Phosphatase Creatine Kinase Total Creatine Kinase CK-MB (CK-2) Troponin I Total Protein Total Protein (PEP) Albumin Albumin (PEP) Vitamin B12 Urine Protein Urine Blood Ur Leukocyte Esterase Urine RBC Urine WBC Urine WBC Clumps Ur Squamous Epith Cells Urine Bacteria Hyaline Casts Urine Mucus Urine Yeast (Budding) U Random Total Protein CSF RBC CSF Glucose Free [place] LC, Quant Free Lambda LC, Quant 08/14/17 08/14/17 08/15/17 16:49 21:19 05:50 WBC RBC Hgb Hct Neutrophils # Lymphocytes # Monocytes # INR ABG pH ABG pO2 ABG O2 Saturation Sodium Chloride 111 H Carbon Dioxide 21 L BUN 58 H Creatinine 3.33 H Glucose 122 H POC Glucose (mg/dL) 154 H 198 H Hemoglobin A1c Plasma Lactic Acid [place] Calcium 7.6 L ALT Alkaline Phosphatase Creatine Kinase Total Creatine Kinase CK-MB (CK-2) Troponin I Total Protein Total Protein (PEP) Albumin Albumin (PEP) Vitamin B12 Urine Protein Urine Blood Ur Leukocyte Esterase Urine RBC Urine WBC Urine WBC Clumps Ur Squamous Epith Cells Urine Bacteria Hyaline Casts Urine Mucus Urine Yeast (Budding) U Random Total Protein CSF RBC CSF Glucose Free [place] LC, Quant Free Lambda LC, Quant 08/15/17 08/15/17 08/15/17 05:52 10:32 10:45 WBC RBC Hgb Hct Neutrophils # Lymphocytes # Monocytes # INR ABG pH ABG pO2 ABG O2 Saturation Sodium Chloride Carbon Dioxide BUN Creatinine Glucose POC Glucose (mg/dL) 160 H Hemoglobin A1c Plasma Lactic Acid [place] Calcium ALT Alkaline Phosphatase Creatine Kinase Total Creatine Kinase CK-MB (CK-2) Troponin I Total Protein Total Protein (PEP) 5.0 L Albumin Albumin (PEP) 1.94 L Vitamin B12 Urine Protein Urine Blood Ur Leukocyte Esterase Urine RBC Urine WBC Urine WBC Clumps Ur Squamous Epith Cells Urine Bacteria Hyaline Casts Urine Mucus Urine Yeast (Budding) U Random Total Protein 275 H CSF RBC CSF Glucose Free [place] LC, Quant 9.53 H Free Lambda LC, Quant 8.05 H 08/15/17 08/15/17 08/15/17 11:35 14:14 18:56 WBC RBC Hgb Hct Neutrophils # Lymphocytes # Monocytes # INR ABG pH ABG pO2 ABG O2 Saturation Sodium Chloride Carbon Dioxide BUN Creatinine Glucose POC Glucose (mg/dL) 152 H 157 H Hemoglobin A1c Plasma Lactic Acid [place] Calcium ALT Alkaline Phosphatase Creatine Kinase Total Creatine Kinase CK-MB (CK-2) Troponin I Total Protein Total Protein (PEP) Albumin Albumin (PEP) Vitamin B12 Urine Protein 3+ H Urine Blood Small H Ur Leukocyte Esterase Large H Urine RBC 149 H Urine WBC >182 H Urine WBC Clumps Many H Ur Squamous Epith Cells Urine Bacteria Hyaline Casts Urine Mucus Urine Yeast (Budding) Many H U Random Total Protein CSF RBC CSF Glucose Free [place] LC, Quant Free Lambda LC, Quant 08/15/17 08/16/17 08/16/17 20:29 06:57 09:07 WBC RBC Hgb Hct Neutrophils # Lymphocytes # Monocytes # INR ABG pH ABG pO2 ABG O2 Saturation Sodium Chloride 113 H Carbon Dioxide 19 L BUN 59 H Creatinine 3.25 H Glucose 151 H POC Glucose (mg/dL) 132 H 141 H Hemoglobin A1c Plasma Lactic Acid [place] Calcium 7.8 L ALT Alkaline Phosphatase Creatine Kinase Total Creatine Kinase CK-MB (CK-2) Troponin I Total Protein Total Protein (PEP) Albumin Albumin (PEP) Vitamin B12 Urine Protein Urine Blood Ur Leukocyte Esterase Urine RBC Urine WBC Urine WBC Clumps Ur Squamous Epith Cells Urine Bacteria Hyaline Casts Urine Mucus Urine Yeast (Budding) U Random Total Protein CSF RBC CSF Glucose Free [place] LC, Quant Free Lambda LC, Quant 08/16/17 08/16/17 08/16/17 11:44 16:39 20:18 WBC RBC Hgb Hct Neutrophils # Lymphocytes # Monocytes # INR ABG pH ABG pO2 ABG O2 Saturation Sodium Chloride Carbon Dioxide BUN Creatinine Glucose POC Glucose (mg/dL) 164 H 165 H 138 H Hemoglobin A1c Plasma Lactic Acid [place] Calcium ALT Alkaline Phosphatase Creatine Kinase Total Creatine Kinase CK-MB (CK-2) Troponin I Total Protein Total Protein (PEP) Albumin Albumin (PEP) Vitamin B12 Urine Protein Urine Blood Ur Leukocyte Esterase Urine RBC Urine WBC Urine WBC Clumps Ur Squamous Epith Cells Urine Bacteria Hyaline Casts Urine Mucus Urine Yeast (Budding) U Random Total Protein CSF RBC CSF Glucose Free [place] LC, Quant Free Lambda LC, Quant 08/17/17 08/17/17 08/17/17 06:42 10:58 10:58 WBC 12.1 H RBC 4.08 L Hgb 11.4 L Hct 35.9 L Neutrophils # 10.1 H Lymphocytes # 0.8 L Monocytes # INR ABG pH ABG pO2 ABG O2 Saturation Sodium 150 H Chloride 117 H Carbon Dioxide 20 L BUN 55 H Creatinine 3.07 H Glucose 131 H POC Glucose (mg/dL) 128 H Hemoglobin A1c Plasma Lactic Acid [place] Calcium 8.1 L ALT 19 L Alkaline Phosphatase Creatine Kinase Total Creatine Kinase CK-MB (CK-2) Troponin I Total Protein 5.0 L Total Protein (PEP) Albumin 2.2 L Albumin (PEP) Vitamin B12 Urine Protein Urine Blood Ur Leukocyte Esterase Urine RBC Urine WBC Urine WBC Clumps Ur Squamous Epith Cells Urine Bacteria Hyaline Casts Urine Mucus Urine Yeast (Budding) U Random Total Protein CSF RBC CSF Glucose Free [place] LC, Quant Free Lambda LC, Quant 08/17/17 08/17/17 08/17/17 11:15 16:34 19:20 WBC RBC Hgb Hct Neutrophils # Lymphocytes # Monocytes # INR ABG pH ABG pO2 ABG O2 Saturation Sodium Chloride Carbon Dioxide BUN Creatinine Glucose POC Glucose (mg/dL) 135 H 145 H Hemoglobin A1c Plasma Lactic Acid [place] Calcium ALT Alkaline Phosphatase Creatine Kinase Total Creatine Kinase CK-MB (CK-2) Troponin I Total Protein Total Protein (PEP) Albumin Albumin (PEP) Vitamin B12 Urine Protein Urine Blood Ur Leukocyte Esterase Urine RBC Urine WBC Urine WBC Clumps Ur Squamous Epith Cells Urine Bacteria Hyaline Casts Urine Mucus Urine Yeast (Budding) U Random Total Protein CSF RBC CSF Glucose 111 H Free [place] LC, Quant Free Lambda LC, Quant 08/17/17 08/17/17 08/18/17 19:20 20:28 00:55 WBC 16.0 H RBC Hgb 12.5 L Hct Neutrophils # 13.9 H Lymphocytes # 0.7 L Monocytes # INR ABG pH ABG pO2 ABG O2 Saturation Sodium Chloride Carbon Dioxide BUN Creatinine Glucose POC Glucose (mg/dL) 157 H Hemoglobin A1c Plasma Lactic Acid [place] Calcium ALT Alkaline Phosphatase Creatine Kinase Total Creatine Kinase CK-MB (CK-2) Troponin I Total Protein Total Protein (PEP) Albumin Albumin (PEP) Vitamin B12 Urine Protein Urine Blood Ur Leukocyte Esterase Urine RBC Urine WBC Urine WBC Clumps Ur Squamous Epith Cells Urine Bacteria Hyaline Casts Urine Mucus Urine Yeast (Budding) U Random Total Protein CSF RBC 31 H CSF Glucose Free [place] LC, Quant Free Lambda LC, Quant 08/18/17 08/18/17 08/18/17 00:55 04:32 04:32 WBC 20.2 H RBC Hgb 12.8 L Hct Neutrophils # 18.2 H Lymphocytes # 0.6 L Monocytes # INR ABG pH ABG pO2 ABG O2 Saturation Sodium 151 H 150 H Chloride 116 H 116 H Carbon Dioxide 19 L 19 L BUN 53 H 57 H Creatinine 2.90 H 3.10 H Glucose 169 H 161 H POC Glucose (mg/dL) Hemoglobin A1c Plasma Lactic Acid [place] Calcium 8.3 L ALT Alkaline Phosphatase Creatine Kinase Total Creatine Kinase CK-MB (CK-2) Troponin I Total Protein Total Protein (PEP) Albumin Albumin (PEP) Vitamin B12 Urine Protein Urine Blood Ur Leukocyte Esterase Urine RBC Urine WBC Urine WBC Clumps Ur Squamous Epith Cells Urine Bacteria Hyaline Casts Urine Mucus Urine Yeast (Budding) U Random Total Protein CSF RBC CSF Glucose Free [place] LC, Quant Free Lambda LC, Quant 08/18/17 08/18/17 08/18/17 05:00 08:03 08:27 WBC RBC Hgb Hct Neutrophils # Lymphocytes # Monocytes # INR ABG pH 7.32 L ABG pO2 >400 H ABG O2 Saturation 99.8 H Sodium Chloride Carbon Dioxide BUN Creatinine Glucose POC Glucose (mg/dL) 150 H Hemoglobin A1c Plasma Lactic Acid Ped[place] Calcium ALT Alkaline Phosphatase Creatine Kinase Total Creatine Kinase CK-MB (CK-2) Troponin I Total Protein Total Protein (PEP) Albumin Albumin (PEP) Vitamin B12 Urine Protein 2+ H Urine Blood Moderate H Ur Leukocyte Esterase Large H Urine RBC >182 H Urine WBC >182 H Urine WBC Clumps Few H Ur Squamous Epith Cells Urine Bacteria Hyaline Casts 5 H Urine Mucus Rare H Urine Yeast (Budding) Moderate H U Random Total Protein CSF RBC CSF Glucose Free [place] LC, Quant Free Lambda LC, Quant - Diagnostic Findings Chest x-ray: image reviewed (Chest x-ray showed adequate placement of the endotracheal tube, mild interstitial prominence, and left lower lobe opacity suspect some left pleural effusion. Right lower lobe opacity was also noted. 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 2 acute urinary tract infection, and sepsis. 3 acute on chronic renal failure secondary to ATN secondary to sepsis and hemodynamic instability. 4 chronic kidney disease stage III secondary to diabetes. 5 hypernatremia secondary to free water deficit. 6 acute metabolic acidosis secondary to sepsis and renal failure. 7 strongly suspect protein calorie malnutrition, moderate in severity. 8 history of chronic atrial fibrillation 9 history of coronary artery disease and previous CABG 10 suspect some component of diastolic congestive heart failure. 11 acute metabolic encephalopathy secondary to sepsis 12 history of seizure disorder Recommendation: Continue ventilatory support, continue antibiotics, hemodynamic support as needed, GI and DVT prophylaxis, adjust ventilator settings accordingly, reviewed the results of the spinal fluid so far at least from what is available is nondiagnostic. Presently the patient is on Zosyn. Address nutritional status, start enteral feeding. Overall prognostic picture is guarded, we'll continue to follow. Time with Patient: Greater than 30
--- NOTE | 2017-08-18 14:02 | P.PN ---
Subjective Progress Note Date: 08/18/17 This is a 71-year-old male one of Dr. Lucas Gallo's patient with past medical history of hypertension, hyperlipidemia, diabetes, COPD, ,CHF , alcoholism and worsening heart failure who had open heart surgery with the CABG 2015 ended up having multiple complications and the multiple rehospitalization for worsening shortness of breath, A. fib and other complication. He was last hospitalized on 05/06/2016 at which time he was here for bradycardia and beta kojo was discontinued. He was sent in after neighbor found him in bed very weak, apparently patient has not gotten out of bed for 2 days. The neighbor checks on him on a daily basis, however on her return trip, he hasn't moved out of bed and has soiled himself stooled himself, and hasn't eaten for approximately 48 hours. Patient has difficulty in getting out of bed difficulty ambulating, his son who normally is sees constantly complaining at home, apparently admitted hospital hence no one was caring for the patient except for a visit from a neighbor. Patient has had cough, some wheezing, stiffness of the joint, difficulty in ambulating, patient hasn't had his medications for 2 days as well 08/12: Echocardiogram reveals EF of 50-55% with moderate concentric left ventricular hypertrophy, LA severely dilated at greater than 40, are appears enlarged, mild mitral calcification, mild mitral regurgitation, mild tricuspid regurgitation. Patient has been seen and evaluated by cardiology. Beta kojo was not started due to history of symptomatic bradycardia. Aspirin 81 mg was added. Patient no longer on Coumadin most likely due to risk of bleeding. White count is improved to 20.1. BUN is 63 and creatinine 2.8. TSH is 2.940. Patient is decreased mental status today. Staff was unable to feed him today. His blood pressure is stable. [place] will be changed to half a tablet which is 2.5 mg 3 times daily as needed. Keppra level will be checked in the morning as well as EEG ordered. Patient has been afebrile. PT has recommended subacute rehab. 08/13: Patient improved slightly yesterday evening where he was able to tolerate his dinner and he ate 80% of his dinner. Patient today is still lethargic but open his eyes to voice command following simple commands like moving his extremities up and down 08/14: Patient continued to have adequate urine output with a slight improvement in kidney function. Patient is improved from the mental status standpoint where he is more awake and following simple commands but looks lethargic overall. No major events reported by nursing staff 08/15: Patient was evaluated today, he underwent abdominal/bladder ultrasound, exam revealed limited exam but otherwise normal. Cardiology on consult, who discontinued his amlodipine do to hypotension. Blood pressure did improve to 132/67 today. Creatinine function slightly increased from previous, today 3.3, nephrology consult, recommends to continue with IV hydration, continue to hold lisinopril Lasix. Blood cultures show no growth to date. 08/16: Patient is still lethargic for nurse. Speech therapy has evaluated and made him nothing by mouth as he is too lethargic to eat. Keppra and Protonix changed to IV. Clonidine patch added for blood pressure control. He is continued on IV fluids at 75 mL per hour. Oral medications have been discontinued until patient is more alert. Creatinine is 3.25. Last bowel movement was 2 days ago. He has had good urine output. Repeat urinalysis shows signs of infection and patient is already on Zosyn. Consult with neurology added. 08/17: Patient has been seen by Dr. Presley with thought that metabolic encephalopathy secondary to sepsis and renal failure. CT of the brain revealed no acute intracranial hemorrhage or midline shift. No acute intracranial process. Multifocal lacunar injuries old-appearing old. Diffuse age-related triple atrophy and chronic small vessel ischemic change. Patient remains essentially unresponsive. Clonidine was increased last evening for high blood pressure. Due to elevated sodium IV fluids will be switched to D5W at 75 mL per hour. NG tube to be placed for tube feedings and consult with dietitian. 08/18: Chest x-ray revealed bilateral infiltrate and pleural effusions correlate for heart failure. NG tube in the left upper quadrant likely within the stomach. Patient was seen by Dr. Louis without the UTI could be underlying etiology for metabolic encephalopathy and possible pneumonitis. He requested anesthesia to perform LP and continue Zosyn. Diagnostic LP was done by Dr. Ulrich with return of clear spinal fluid. EEG did not reveal any seizure activity. There is been no seizure activity during this hospitalization. Dr. Presley did order MRI of the brain. A repeat chest x-ray this morning reveals congestive heart failure with small pleural effusions. Decreased pleural fluid on the left side. CT of the brain revealed possible evolving acute subacute infarct internal capsule on the right. Subsequent increase in size compared to prior study. Repeat chest x-ray shows new endotracheal tube. Similar interstitial prominence. Mild basilar opacities mostly on the left side. Mildly decreased. Dr. Mcbride as ordered 1 dose of IV Lasix 40 mg today. Last evening, patient' s blood pressure was elevated and [facility] was able to give labetalol. Patient said that a drop in his blood pressure. Patient was transferred to the intensive care unit last evening and consult with Dr. Robles was added. He was intubated at 4 this morning and remains intubated and on mechanical ventilation. Blood pressure has remained on the high side. Patient did not require vasopressors. White count went up to 20.2 sodium is 150, BUN 57 creatinine 3.1. Currently, sedation is off and patient is unresponsive. CODE STATUS was discussed with the patient's son yesterday afternoon/evening and he wanted the patient to remain full code. Objective - Vital Signs Vital signs: Vital Signs Temp 99.0 F 08/18/17 08:00 Pulse 98 08/18/17 11:07 Resp 16 08/18/17 11:07 BP 193/96 08/18/17 11:00 Pulse Ox 100 08/18/17 11:09 Intake & Output 08/17/17 08/18/17 08/18/17 18:59 06:59 18:59 Intake Total 75 385.0 Output Total 730 150 Balance -655 235.0 Weight 81 kg 74.1 kg 74.1 kg Intake: IV 75 235 Dextrose 5% in Water 1, 75 235 000 ml @ 75 mls/hr IV . [id number] [facility] Rx#:[id number] Intake, IV Titration 150.0 Amount Dextrose 5% in Water 1, 100 000 ml @ 100 mls/hr IV . Q10H [facility] Rx#:[id number] Piperacillin-Tazobactam 3 50.0 .375 gm In Dextrose/Water 1 50ml.bag @ 12.5 mls/hr IVPB Q8H [facility] Rx#: [id number] Tube Feeding 0 0 Other 0 Output: Urine 730 150 Uretheral ([place]) 590 Other: Voiding Method Indwelling Catheter Indwelling Catheter Indwelling Catheter # Bowel Movements 1 - Exam General appearance: cooperative, no acute distress, thin - EENT Eyes: anicteric sclerae, EOMI, PERRLA, dentition normal ENT: hard of hearing, NA/AT, normal oropharynx - Neck Neck: no lymphadenopathy, normal ROM, no other, no rigidity, no stridor, no thyromegaly - Respiratory Respiratory: bilateral: CTA, diminished, negative: dullness, rales, rhonchi, wheezing, prolonged expiration - Cardiovascular Rhythm: regular Heart sounds: normal: S1, S2 - Gastrointestinal General gastrointestinal: normal bowel sounds, soft - Integumentary Stage I decubitus ulcer sacrum Integumentary: decreased turgor, normal - Neurologic Neurologic: CNII-XII intact - Musculoskeletal Musculoskeletal: generalized weakness, strength equal bilaterally - Psychiatric Psychiatric: Patient is intubated on mechanical ventilation, no appropriate affect, no intact judgment & insight - Labs CBC & Chem 7: 08/18/17 04:32 08/18/17 04:32 Labs: Abnormal Lab Results - Last 24 Hours (Table) 08/17/17 08/17/17 08/17/17 Range/Units 10:58 10:58 16:34 WBC 12.1 H (3.8-10.6) k/uL RBC 4.08 L (4.30-5.90) m/uL Hgb 11.4 L (13.0-17.5) gm/dL Hct 35.9 L (39.0-53.0) % Neutrophils # 10.1 H (1.3-7.7) k/uL Lymphocytes # 0.8 L (1.0-4.8) k/uL ABG pH (7.35-7.45) ABG pO2 (83-108) mmHg ABG O2 Saturation (94-97) % Sodium 150 H (137-145) mmol/L Chloride 117 H (98-107) mmol/L Carbon Dioxide 20 L (22-30) mmol/L BUN 55 H (9-20) mg/dL Creatinine 3.07 H (0.66-1.25) mg/dL Glucose 131 H (74-99) mg/dL POC Glucose (mg/dL) 145 H (75-99) mg/dL Calcium 8.1 L (8.4-10.2) mg/dL ALT 19 L (21-72) U/L Total Protein 5.0 L (6.3-8.2) g/dL Albumin 2.2 L (3.5-5.0) g/dL Urine Protein (Negative) Urine Blood (Negative) Ur Leukocyte Esterase (Negative) Urine RBC (0-5) /hpf Urine WBC (0-5) /hpf Urine WBC Clumps (None) /hpf Hyaline Casts (0-2) /lpf Urine Mucus (None) /hpf Urine Yeast (Budding) (None) /hpf CSF RBC (0-10) u/L CSF Glucose (40-70) mg/dL 08/17/17 08/17/17 08/17/17 Range/Units 19:20 19:20 20:28 WBC (3.8-10.6) k/uL RBC (4.30-5.90) m/uL Hgb (13.0-17.5) gm/dL Hct (39.0-53.0) % Neutrophils # (1.3-7.7) k/uL Lymphocytes # (1.0-4.8) k/uL ABG pH (7.35-7.45) ABG pO2 (83-108) mmHg ABG O2 Saturation (94-97) % Sodium (137-145) mmol/L Chloride (98-107) mmol/L Carbon Dioxide (22-30) mmol/L BUN (9-20) mg/dL Creatinine (0.66-1.25) mg/dL Glucose (74-99) mg/dL POC Glucose (mg/dL) 157 H (75-99) mg/dL Calcium (8.4-10.2) mg/dL ALT (21-72) U/L Total Protein (6.3-8.2) g/dL Albumin (3.5-5.0) g/dL Urine Protein (Negative) Urine Blood (Negative) Ur Leukocyte Esterase (Negative) Urine RBC (0-5) /hpf Urine WBC (0-5) /hpf Urine WBC Clumps (None) /hpf Hyaline Casts (0-2) /lpf Urine Mucus (None) /hpf Urine Yeast (Budding) (None) /hpf CSF RBC 31 H (0-10) u/L CSF Glucose 111 H (40-70) mg/dL 08/18/17 08/18/17 08/18/17 Range/Units 00:55 00:55 04:32 WBC 16.0 H 20.2 H (3.8-10.6) k/uL RBC (4.30-5.90) m/uL Hgb 12.5 L 12.8 L (13.0-17.5) gm/dL Hct (39.0-53.0) % Neutrophils # 13.9 H 18.2 H (1.3-7.7) k/uL Lymphocytes # 0.7 L 0.6 L (1.0-4.8) k/uL ABG pH (7.35-7.45) ABG pO2 (83-108) mmHg ABG O2 Saturation (94-97) % Sodium 151 H (137-145) mmol/L Chloride 116 H (98-107) mmol/L Carbon Dioxide 19 L (22-30) mmol/L BUN 53 H (9-20) mg/dL Creatinine 2.90 H (0.66-1.25) mg/dL Glucose 169 H (74-99) mg/dL POC Glucose (mg/dL) (75-99) mg/dL Calcium (8.4-10.2) mg/dL ALT (21-72) U/L Total Protein (6.3-8.2) g/dL Albumin (3.5-5.0) g/dL Urine Protein (Negative) Urine Blood (Negative) Ur Leukocyte Esterase (Negative) Urine RBC (0-5) /hpf Urine WBC (0-5) /hpf Urine WBC Clumps (None) /hpf Hyaline Casts (0-2) /lpf Urine Mucus (None) /hpf Urine Yeast (Budding) (None) /hpf CSF RBC (0-10) u/L CSF Glucose (40-70) mg/dL 08/18/17 08/18/17 08/18/17 Range/Units 04:32 05:00 08:03 WBC (3.8-10.6) k/uL RBC (4.30-5.90) m/uL Hgb (13.0-17.5) gm/dL Hct (39.0-53.0) % Neutrophils # (1.3-7.7) k/uL Lymphocytes # (1.0-4.8) k/uL ABG pH 7.32 L (7.35-7.45) ABG pO2 >400 H (83-108) mmHg ABG O2 Saturation 99.8 H (94-97) % Sodium 150 H (137-145) mmol/L Chloride 116 H (98-107) mmol/L Carbon Dioxide 19 L (22-30) mmol/L BUN 57 H (9-20) mg/dL Creatinine 3.10 H (0.66-1.25) mg/dL Glucose 161 H (74-99) mg/dL POC Glucose (mg/dL) (75-99) mg/dL Calcium 8.3 L (8.4-10.2) mg/dL ALT (21-72) U/L Total Protein (6.3-8.2) g/dL Albumin (3.5-5.0) g/dL Urine Protein 2+ H (Negative) Urine Blood Moderate H (Negative) Ur Leukocyte Esterase Large H (Negative) Urine RBC >182 H (0-5) /hpf Urine WBC >182 H (0-5) /hpf Urine WBC Clumps Few H (None) /hpf Hyaline Casts 5 H (0-2) /lpf Urine Mucus Rare H (None) /hpf Urine Yeast (Budding) Moderate H (None) /hpf CSF RBC (0-10) u/L CSF Glucose (40-70) mg/dL //18 Range/Units 08:27 WBC (3.8-10.6) k/uL RBC (4.30-5.90) m/uL Hgb (13.0-17.5) gm/dL Hct (39.0-53.0) % Neutrophils # (1.3-7.7) k/uL Lymphocytes # (1.0-4.8) k/uL ABG pH (7.35-7.45) ABG pO2 (83-108) mmHg ABG O2 Saturation (94-97) % Sodium (137-145) mmol/L Chloride (98-107) mmol/L Carbon Dioxide (22-30) mmol/L BUN (9-20) mg/dL Creatinine (0.66-1.25) mg/dL Glucose (74-99) mg/dL POC Glucose (mg/dL) 150 H (75-99) mg/dL Calcium (8.4-10.2) mg/dL ALT (21-72) U/L Total Protein (6.3-8.2) g/dL Albumin (3.5-5.0) g/dL Urine Protein (Negative) Urine Blood (Negative) Ur Leukocyte Esterase (Negative) Urine RBC (0-5) /hpf Urine WBC (0-5) /hpf Urine WBC Clumps (None) /hpf Hyaline Casts (0-2) /lpf Urine Mucus (None) /hpf Urine Yeast (Budding) (None) /hpf CSF RBC (0-10) u/L CSF Glucose (40-70) mg/dL Microbiology - Last 24 Hours (Table) 08/17/17 19:20 CSF Gram Stain - Preliminary Cerebral Spinal Fluid CSF Culture - Preliminary 08/11/17 11:35 Blood Culture - Final Blood No Growth after 144 hours 08/16/17 10:30 Urine Culture - Preliminary Urine,Catheterized Yeast species Assessment and Plan Plan: 1. Metabolic encephalopathy with sepsis of unclear source aspiration pneumonia and UTI are in differential vs community acquired pneumonia, UTI and evolving stroke is another etiology. Continue Zosyn. [place] discontinued. Speech therapy has evaluated and made him nothing by mouth as he is too lethargic to eat. Keppra and Protonix changed to IV. Status post LP. Consult with Dr. Presley and Dr. Louis. 2. Acute respiratory failure requiring intubation and mechanical ventilation secondary to Consult with Dr. Travis barnard. 3. Elevated troponin, secondary to sepsis 4. Acute kidney injury secondary to ATN secondary to sepsis and hemodynamic instability with chronic kidney disease stage III. Patient is followed by nephrology. 5. Arrhythmia history with prior Nonsustained ventricular tachycardia on 2015 H and was seen by cardiology echocardiogramJuly 2016 showed atrial fibrillation with small pericardial effusion noted ejection fraction 45-50% inferolateral hypokinesis with palpation of LA size over 40. Electrolyte management is optimized 6. History bilateral hydronephrosis mild, improved from last ultrasound history Phimosis with urinary retention resolved monitor for urinary retention continue tamsulosin 7. CAD post CABG. continue aspirin 81 mg orally once every day, 8. Diabetes mellitus type II: Has been on Lantus at 20 units at bedtime along with pre-meal however with the sugars being low, and Lantus on hold , NovoLog sliding scale, current sugars are low 9. Hypertensive cardiovascular disease. Clonidine patch increased, hydralazine 20 mg IV push every 6 hours as needed. 10. Hyperlipidemia: Currently off statin. 11. Chronic A. fib. Patient is no longer on Coumadin. This may be related to risk of falls. 12. Chronic systolic heart failure. Patient is usually on Imdur 30 mg orally once every day, hydralazine 75 mg orally twice a day, lisinopril 20 mg a day, Norvasc 5 mg daily.Lasix 40 mg a day--all discontinued 12. Recurrent depression: Has been on Prozac 20 mg daily.Xanax at bedtime-- discontinued 13. Seizure history: Has been on Keppra 750 g twice a day with no new seizure activity. CHeck Keppra level. Keppra changed to IV. 14. BPH: Continue patient normally on Flomax 0.4 mg daily. Hold Flomax. [place] catheter 15. Severe GERD: Will add Protonix 40 mg daily 16. Rhabdomyolysis, hold Lipitor 17. Sacral decubitus stage I secondary to prolonged immobilization , overlay mattress and frequent turning 18. Hypernatremia. Patient started on IV fluids of D5W at 100 mL per hour. Nephrology is following. 19. Moderate protein calorie malnutrition due to lack of oral intake. Patient will have NG tube placed and tube feeding started. Dietitian consult requested. Discharge plan: Subacute rehab Impression and plan of care have been directed as dictated by the signing physician. Carly Greene nurse practitioner acting as scribe for signing physician.
[2017-08-18 17:19] LABS: Glucose,Whole Blood 174 mg/dL (75-99)
[2017-08-18] MEDS: ENOXAPARIN 30 MG/0.3 ML SYRINGE SQ SCH (18:12)
--- NOTE | 2017-08-18 18:39 | P.PN ---
Subjective Progress Note Date: 08/18/17 The patient is a 71-year-old man admitted to the hospital on 08/11/2017 with sepsis renal failure and multiple other medical problems. The patient has been lethargic through his hospital stay. He had a CAT scan of the brain done on which showed no acute hemorrhage or intracranial process. There are multifocal lacunar infarcts which appeared old. There is diffuse age-related atrophy and chronic small vessel ischemic changes. Patient did seem to awaken more yesterday. He did undergone a spinal tap to rule out intracranial infection. Yesterday the patient was talking complaining that he was in pain throughout his body. He had requested some pain medication. Later in the evening however the patient had become unresponsive and required immediate intubation and transferred to ICU. By her to that just prior to that he had a second CT brain which showed stable appearance to pontine infarct and stable appearance of left frontal lobe infarct. There was question of increased low attenuation in the right internal capsule which could've represented positioning however. The patient was on propofol which has now been held since about 11 hours ago. He is currently being managed for acute hypoxic respiratory failure. Objective - Vital Signs Vital signs: Vital Signs Temp 98.7 F 08/18/17 16:00 Pulse 59 L 08/18/17 17:30 Resp 21 08/18/17 17:30 BP 126/66 08/18/17 17:30 Pulse Ox 100 08/18/17 17:30 Intake & Output 08/17/17 08/18/17 08/18/17 18:59 06:59 18:59 Intake Total 75 995.0 Output Total 730 830 Balance -655 165.0 Weight 81 kg 74.1 kg 74.1 kg Intake: IV 75 235 Dextrose 5% in Water 1, 75 235 000 ml @ 75 mls/hr IV . [id number] ONE Rx#:[id number] Intake, IV Titration 750.0 Amount Dextrose 5% in Water 1, 700 000 ml @ 100 mls/hr IV . Q10H [facility] Rx#:[id number] Piperacillin-Tazobactam 3 50.0 .375 gm In Dextrose/Water 1 50ml.bag @ 12.5 mls/hr IVPB Q8H [facility] Rx#: [id number] Tube Feeding 0 10 Other 0 Output: Urine 730 830 Uretheral ([place]) 590 Other: Voiding Method Indwelling Catheter Indwelling Catheter Indwelling Catheter # Bowel Movements 1 - Constitutional General appearance: Present: average body habitus - EENT Eyes: Present: PERRLA - Respiratory Respiratory: bilateral: CTA - Cardiovascular Rhythm: regular - Neurologic Neurologic Comment(s): Neurologic examination: Next Mental status: The patient is intubated. He does not open eyes spontaneously. He does not follow verbal command. Next Cranial nerves: Pupils were 2 mm equal and reactive corneal response was present next Motor examination difficult to assess patient is unresponsive but he does withdraw legs to stimuli on his feet - Labs CBC & Chem 7: 08/18/17 04:32 08/18/17 17:09 Labs: Abnormal Lab Results - Last 24 Hours (Table) 08/17/17 08/17/17 08/17/17 Range/Units 19:20 19:20 20:28 WBC (3.8-10.6) k/uL Hgb (13.0-17.5) gm/dL Neutrophils # (1.3-7.7) k/uL Lymphocytes # (1.0-4.8) k/uL ABG pH (7.35-7.45) ABG pO2 (83-108) mmHg ABG O2 Saturation (94-97) % Sodium (137-145) mmol/L Chloride (98-107) mmol/L Carbon Dioxide (22-30) mmol/L BUN (9-20) mg/dL Creatinine (0.66-1.25) mg/dL Glucose (74-99) mg/dL POC Glucose (mg/dL) 157 H (75-99) mg/dL Calcium (8.4-10.2) mg/dL Urine Protein (Negative) Urine Blood (Negative) Ur Leukocyte Esterase (Negative) Urine RBC (0-5) /hpf Urine WBC (0-5) /hpf Urine WBC Clumps (None) /hpf Hyaline Casts (0-2) /lpf Urine Mucus (None) /hpf Urine Yeast (Budding) (None) /hpf CSF RBC 31 H (0-10) u/L CSF Glucose 111 H (40-70) mg/dL 08/18/17 08/18/17 08/18/17 Range/Units 00:55 00:55 04:32 WBC 16.0 H 20.2 H (3.8-10.6) k/uL Hgb 12.5 L 12.8 L (13.0-17.5) gm/dL Neutrophils # 13.9 H 18.2 H (1.3-7.7) k/uL Lymphocytes # 0.7 L 0.6 L (1.0-4.8) k/uL ABG pH (7.35-7.45) ABG pO2 (83-108) mmHg ABG O2 Saturation (94-97) % Sodium 151 H (137-145) mmol/L Chloride 116 H (98-107) mmol/L Carbon Dioxide 19 L (22-30) mmol/L BUN 53 H (9-20) mg/dL Creatinine 2.90 H (0.66-1.25) mg/dL Glucose 169 H (74-99) mg/dL POC Glucose (mg/dL) (75-99) mg/dL Calcium (8.4-10.2) mg/dL Urine Protein (Negative) Urine Blood (Negative) Ur Leukocyte Esterase (Negative) Urine RBC (0-5) /hpf Urine WBC (0-5) /hpf Urine WBC Clumps (None) /hpf Hyaline Casts (0-2) /lpf Urine Mucus (None) /hpf Urine Yeast (Budding) (None) /hpf CSF RBC (0-10) u/L CSF Glucose (40-70) mg/dL 08/18/17 08/18/17 08/18/17 Range/Units 04:32 05:00 08:03 WBC (3.8-10.6) k/uL Hgb (13.0-17.5) gm/dL Neutrophils # (1.3-7.7) k/uL Lymphocytes # (1.0-4.8) k/uL ABG pH 7.32 L (7.35-7.45) ABG pO2 >400 H (83-108) mmHg ABG O2 Saturation 99.8 H (94-97) % Sodium 150 H (137-145) mmol/L Chloride 116 H (98-107) mmol/L Carbon Dioxide 19 L (22-30) mmol/L BUN 57 H (9-20) mg/dL Creatinine 3.10 H (0.66-1.25) mg/dL Glucose 161 H (74-99) mg/dL POC Glucose (mg/dL) (75-99) mg/dL Calcium 8.3 L (8.4-10.2) mg/dL Urine Protein 2+ H (Negative) Urine Blood Moderate H (Negative) Ur Leukocyte Esterase Large H (Negative) Urine RBC >182 H (0-5) /hpf Urine WBC >182 H (0-5) /hpf Urine WBC Clumps Few H (None) /hpf Hyaline Casts 5 H (0-2) /lpf Urine Mucus Rare H (None) /hpf Urine Yeast (Budding) Moderate H (None) /hpf CSF RBC (0-10) u/L CSF Glucose (40-70) mg/dL 08/18/17 08/18/17 08/18/17 Range/Units 08:27 12:08 17:09 WBC (3.8-10.6) k/uL Hgb (13.0-17.5) gm/dL Neutrophils # (1.3-7.7) k/uL Lymphocytes # (1.0-4.8) k/uL ABG pH (7.35-7.45) ABG pO2 (83-108) mmHg ABG O2 Saturation (94-97) % Sodium 146 H (137-145) mmol/L Chloride (98-107) mmol/L Carbon Dioxide (22-30) mmol/L BUN (9-20) mg/dL Creatinine (0.66-1.25) mg/dL Glucose (74-99) mg/dL POC Glucose (mg/dL) 150 H 161 H (75-99) mg/dL Calcium (8.4-10.2) mg/dL Urine Protein (Negative) Urine Blood (Negative) Ur Leukocyte Esterase (Negative) Urine RBC (0-5) /hpf Urine WBC (0-5) /hpf Urine WBC Clumps (None) /hpf Hyaline Casts (0-2) /lpf Urine Mucus (None) /hpf Urine Yeast (Budding) (None) /hpf CSF RBC (0-10) u/L CSF Glucose (40-70) mg/dL 08/18/17 Range/Units 17:17 WBC (3.8-10.6) k/uL Hgb (13.0-17.5) gm/dL Neutrophils # (1.3-7.7) k/uL Lymphocytes # (1.0-4.8) k/uL ABG pH (7.35-7.45) ABG pO2 (83-108) mmHg ABG O2 Saturation (94-97) % Sodium (137-145) mmol/L Chloride (98-107) mmol/L Carbon Dioxide (22-30) mmol/L BUN (9-20) mg/dL Creatinine (0.66-1.25) mg/dL Glucose (74-99) mg/dL POC Glucose (mg/dL) 174 H (75-99) mg/dL Calcium (8.4-10.2) mg/dL Urine Protein (Negative) Urine Blood (Negative) Ur Leukocyte Esterase (Negative) Urine RBC (0-5) /hpf Urine WBC (0-5) /hpf Urine WBC Clumps (None) /hpf Hyaline Casts (0-2) /lpf Urine Mucus (None) /hpf Urine Yeast (Budding) (None) /hpf CSF RBC (0-10) u/L CSF Glucose (40-70) mg/dL Microbiology - Last 24 Hours (Table) 08/18/17 04:15 Gram Stain - Preliminary Sputum Sputum Culture - Preliminary 08/16/17 10:30 Urine Culture - Final Urine,Catheterized Vania sp,not albicans/galbr 08/17/17 19:20 CSF Gram Stain - Preliminary Cerebral Spinal Fluid CSF Culture - Preliminary 08/11/17 11:35 Blood Culture - Final Blood No Growth after 144 hours Assessment and Plan (1) Metabolic encephalopathy Current Visit: Yes Status: Acute SNOMED Code(s): 18949595 (2) Acute kidney injury superimposed on chronic kidney disease Current Visit: Yes Status: Acute SNOMED Code(s): 60596675 (3) History of seizures Current Visit: Yes Status: Chronic SNOMED Code(s): 655652138 (4) Coronary artery disease Current Visit: No Status: Chronic Code(s): I25.10 - ATHSCL HEART DISEASE OF [place] CORONARY ARTERY W/O ANG PCTRS SNOMED Code(s): 44855186 Plan: The patient is a 71-year-old man who had acute hypoxic respiratory failure. 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 He had been treated for multiple metabolic problems including sepsis due to pneumonia. He has had 2 CAT scans of the brain. He had a CAT scan on 08/17/2017 which showed old infarcts he had a PT CAT scan of the brain [employer] worker hours on 2017 also showed stable appearing pontine infarct as well as old left frontal infarct. There was no hemorrhage. There was an area in the right internal capsule which was felt to have increased in size but unclear whether this was due to positioning or evolving infarct. . His respiratory status declined substantially to the point of respiratory failure and need for ventilatory support. He has a history of seizures but EEG did not show any seizure activity and his Keppra is in the therapeutic range. He has had a spinal tap and so far results are negative recommend to continue respiratory support, antibiotics and will follow.
[2017-08-18 20:14] LABS: Glucose,Whole Blood 183 mg/dL (75-99)
--- NOTE | 2017-08-18 23:25 | PN ---
PROGRESS NOTE DATE OF SERVICE: 08/18/2017. REASON FOR FOLLOWUP: UTI and possible aspiration pneumonitis. INTERVAL HISTORY: The patient did have persistent mental status changes and ended up getting intubated early this morning to protect his airway. No clear indications of any aspiration process or any nausea, no vomiting. The patient's repeat CT did show evidence of stroke. He is hemodynamically stable, not on any pressor support. No significant secretions through the ET, but he did have significantly concentrated urine per the RN. EXAMINATION: Blood pressure 129/57, pulse of 81, temperature 97.5. He is 100% on 40% FiO2. General description is an elderly male lying in bed in no distress. RESPIRATORY SYSTEM: Unlabored breathing. Some coarse breath sounds in the bases. No wheeze. HEART: S1, S2. Regular rate and rhythm. ABDOMEN: Soft. No tenderness. EXTREMITIES: No edema of the feet. LABS: Hemoglobin is 12.8, white count 20.2, BUN of 37, creatinine 3.10. Urine has been positive, now showing some yeast. The CSF examination has been negative with no elevated glucose, normal protein and no white count. His meningitis panel has been negative. Urine with Vania species. DIAGNOSTIC IMPRESSION AND PLAN: Patient with mental status changes, likely metabolic and likely secondary to underlying cerebrovascular accident, less likely Central nervous system infection with cerebrospinal fluid examination remaining to be negative. The patient did have a component of urinary tract infection and possible aspiration pneumonitis, currently on Zosyn. Will add of Diflucan and watch his culture as well as clinical condition closely. Continue supportive care. MMODL / IJN: [id number] /
[2017-08-19 00:07] LABS: Glucose,Whole Blood 218 mg/dL (75-99)
[2017-08-19] MEDS: LABETALOL 5 MG/ML VIAL MDV IVP SCH (02:26)
[2017-08-19 04:47] LABS: Basophils % (A) 0 %; Eosinophils # (A) 0.2 k/uL (0-0.7); Eosinophils % (A) 1 %; HCT 37.2 % (39.0-53.0); HGB 11.5 gm/dL (13.0-17.5); Hypochromasia Slight; Lymphocytes # (A) 1.2 k/uL (1.0-4.8); Lymphocytes % (A) 8 %; MCH 27.7 pg (25.0-35.0); MCV 89.5 fL (80.0-100.0); Mean Platelet Volume 8.1; Monocytes # (A) 0.9 k/uL (0-1.0); Monocytes % (A) 6 %; Neutrophils # (A) 13.3 k/uL (1.3-7.7); Neutrophils % (A) 83 %; Platelet Count 137 k/uL (150-450); RBC 4.16 m/uL (4.30-5.90); RDW 14.7 % (11.5-15.5)
[2017-08-19 04:59] LABS: Calcium 8.1 mg/dL (8.4-10.2); Magnesium 2.2 mg/dL (1.6-2.3); Phosphorus 5.1 mg/dL (2.5-4.5); Potassium 4.3 mmol/L (3.5-5.1)
[2017-08-19] MEDS: PIPERACILLIN-TAZOBACTAM 3.375 GM in DEXTROSE/WATER 1 50ML.BAG IVPB SCH ×3 (05:11→21:36)
[2017-08-19] MEDS: DEXTROSE 5% IN WATER 1,000 ML IV SCH (05:11)
[2017-08-19 06:18] LABS: ABG Base Excess -4.2 mmol/L; ABG HCO3 22 mmol/L (21-25); ABG Oxygen Saturation 98.7 % (94-97); ABG PCO2 42 mmHg (35-45); ABG PH 7.32 (7.35-7.45); ABG PO2 122 mmHg (83-108); ABG TCO2 23 mmol/L (19-24)
[2017-08-19 06:59] LABS: Glucose,Whole Blood 266 mg/dL (75-99)
[2017-08-19] MEDS: INSULIN ASPART 100 UNIT/ML 1 ML 10 ML VIAL SQ SCH ×4 (07:01→20:25)
[2017-08-19] MEDS: BUDESONIDE 0.5 MG/2 ML NEBU INHALATION SCH ×2 (07:32→19:35)
[2017-08-19] MEDS: IPRATROPIUM-ALBUTEROL 3 ML NEB INHALATION SCH ×4 (07:32→19:35)
--- NOTE | 2017-08-19 07:42 | XR ---
EXAMINATION TYPE: XR chest 1V DATE OF EXAM: 08/19/2017 CLINICAL HISTORY: Difficulty breathing progress study. TECHNIQUE: Single AP portable upright view of the chest is obtained. COMPARISON: Chest x-ray from one day earlier and older studies. FINDINGS: An endotracheal and orogastric tube are stable in position. Sternal wires and mediastinal c lips are redemonstrated. Cardiac silhouette size is stable and upper limits of normal with mild centr al vascular congestion and small bilateral pleural effusions with associated left basilar atelectasis and/or infiltrate redemonstrated. Osseous structures are intact. IMPRESSION: Overall stable findings, persistent mild central vascular congestion and small bilatera l pleural effusions with associated left basilar atelectasis and/or infiltrate.
[2017-08-19] MEDS ORDERED: LABETALOL 5 MG/ML VIAL MDV IVP PRN (08:08)
[2017-08-19] MEDS ORDERED: FUROSEMIDE 10 MG/ML 4 ML VIAL IV STA (08:09)
--- NOTE | 2017-08-19 08:18 | P.PN ---
Subjective Patient is seen in follow-up for acute kidney injury. His creatinine in May 2016 was near 1.2. This admission his creatinine was 2.5 and peaked at 3.5 as of August 13. Lisinopril and diuretics were discontinued. Creatinine 3.19 today. He has a Grullon catheter in place for urinary retention. Patient was noted to be more obtunded on August 17 and was subsequently intubated and transferred to the intensive care unit. Repeat computed tomography scan revealed possible resolving subacute infarct. He also underwent a lumbar puncture which is not suggestive of bacterial infection. Urine output did improve with Lasix yesterday and is now 30-40 mL per hour. Vital signs are stable. General: The patient appeared well nourished and normally developed. Currently intubated. HEENT: Head exam is unremarkable. Neck is without jugular venous distension. LUNGS: Lungs are clear to auscultation and percussion. Breath sounds decreased. HEART: Rate and Rhythm are regular. First and second heart sounds normal. No murmurs, rubs or gallops. ABDOMEN: Abdominal exam reveals normal bowel sounds. Non-tender and non- distended. No evidence of peritonitis. EXTREMITITES: No clubbing, cyanosis, or edema. Objective - Vital Signs Vital signs: Vital Signs Temp 97.3 F L 08/19/17 04:00 Pulse 56 L 08/19/17 07:45 Resp 19 08/19/17 07:00 BP 158/79 08/19/17 07:00 Pulse Ox 100 08/19/17 07:00 Intake & Output 08/18/17 08/19/17 08/19/17 18:59 06:59 18:59 Intake Total 1105.0 1550 130 Output Total 930 815 40 Balance 175.0 735 90 Weight 74.1 kg 74.2 kg Intake: IV 235 1200 100 Dextrose 5% in Water 1, 1100 100 000 ml @ 100 mls/hr IV . Q10H [facility] Rx#:[id number] Dextrose 5% in Water 1, 235 000 ml @ 75 mls/hr IV . [id number] [facility] Rx#:[id number] levETIRAcetam IV 750 mg 100 In Sodium Chloride 0.9% 100 ml @ 400 mls/hr IVPB Q12HR [facility] Rx#:[id number] Intake, IV Titration 850.0 100 Amount Dextrose 5% in Water 1, 800 100 000 ml @ 100 mls/hr IV . Q10H [facility] Rx#:[id number] Piperacillin-Tazobactam 3 50.0 .375 gm In Dextrose/Water 1 50ml.bag @ 12.5 mls/hr IVPB Q8H [facility] Rx#: [id number] Tube Feeding 20 190 30 Other 60 Output: Urine 930 815 40 Other: Voiding Method Indwelling Catheter Indwelling Catheter # Bowel Movements 1 1 - Labs CBC & Chem 7: 08/19/17 04:23 08/19/17 04:23 Labs: Abnormal Lab Results - Last 24 Hours (Table) 08/18/17 08/18/17 08/18/17 Range/Units 08:27 12:08 17:09 WBC (3.8-10.6) k/uL RBC (4.30-5.90) m/uL Hgb (13.0-17.5) gm/dL Hct (39.0-53.0) % Plt Count (150-450) k/uL Neutrophils # (1.3-7.7) k/uL ABG pH (7.35-7.45) ABG pO2 (83-108) mmHg ABG O2 Saturation (94-97) % Sodium 146 H (137-145) mmol/L Chloride (98-107) mmol/L Carbon Dioxide (22-30) mmol/L BUN (9-20) mg/dL Creatinine (0.66-1.25) mg/dL Glucose (74-99) mg/dL POC Glucose (mg/dL) 150 H 161 H (75-99) mg/dL Calcium (8.4-10.2) mg/dL Phosphorus (2.5-4.5) mg/dL 08/18/17 08/18/17 08/19/17 Range/Units 17:17 20:12 00:05 WBC (3.8-10.6) k/uL RBC (4.30-5.90) m/uL Hgb (13.0-17.5) gm/dL Hct (39.0-53.0) % Plt Count (150-450) k/uL Neutrophils # (1.3-7.7) k/uL ABG pH (7.35-7.45) ABG pO2 (83-108) mmHg ABG O2 Saturation (94-97) % Sodium (137-145) mmol/L Chloride (98-107) mmol/L Carbon Dioxide (22-30) mmol/L BUN (9-20) mg/dL Creatinine (0.66-1.25) mg/dL Glucose (74-99) mg/dL POC Glucose (mg/dL) 174 H 183 H 218 H (75-99) mg/dL Calcium (8.4-10.2) mg/dL Phosphorus (2.5-4.5) mg/dL 08/19/17 08/19/17 08/19/17 Range/Units 04:23 04:23 06:17 WBC 16.0 H (3.8-10.6) k/uL RBC 4.16 L (4.30-5.90) m/uL Hgb 11.5 L (13.0-17.5) gm/dL Hct 37.2 L (39.0-53.0) % Plt Count 137 L (150-450) k/uL Neutrophils # 13.3 H (1.3-7.7) k/uL ABG pH 7.32 L (7.35-7.45) ABG pO2 122 H (83-108) mmHg ABG O2 Saturation 98.7 H (94-97) % Sodium (137-145) mmol/L Chloride 113 H (98-107) mmol/L Carbon Dioxide 20 L (22-30) mmol/L BUN 60 H (9-20) mg/dL Creatinine 3.19 H (0.66-1.25) mg/dL Glucose 223 H (74-99) mg/dL POC Glucose (mg/dL) (75-99) mg/dL Calcium 8.1 L (8.4-10.2) mg/dL Phosphorus 5.1 H (2.5-4.5) mg/dL 08/19/17 Range/Units 06:58 WBC (3.8-10.6) k/uL RBC (4.30-5.90) m/uL Hgb (13.0-17.5) gm/dL Hct (39.0-53.0) % Plt Count (150-450) k/uL Neutrophils # (1.3-7.7) k/uL ABG pH (7.35-7.45) ABG pO2 (83-108) mmHg ABG O2 Saturation (94-97) % Sodium (137-145) mmol/L Chloride (98-107) mmol/L Carbon Dioxide (22-30) mmol/L BUN (9-20) mg/dL Creatinine (0.66-1.25) mg/dL Glucose (74-99) mg/dL POC Glucose (mg/dL) 266 H (75-99) mg/dL Calcium (8.4-10.2) mg/dL Phosphorus (2.5-4.5) mg/dL Microbiology - Last 24 Hours (Table) 08/17/17 19:20 CSF Gram Stain - Preliminary Cerebral Spinal Fluid CSF Culture - Preliminary 08/18/17 04:15 Gram Stain - Preliminary Sputum Sputum Culture - Preliminary 08/16/17 10:30 Urine Culture - Final Urine,Catheterized Vania sp,not albicans/galbr Assessment and Plan Plan: Assessment: #1. Nonoliguric acute kidney injury secondary to ATN secondary to sepsis and hemodynamic instability. Further worsened with the use of diuretics and STACEY inhibitor. Creatinine is 2.5 on admission and peaked at 3.5 on August 13. 3.19 today. No evidence of hydronephrosis noted on renal ultrasound. UPC 2.8. Urine eosinophils negative. Rule out GN - serologies have been negative. #2. 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 #3. Urinary retention status post Grullon catheter placement. #4. Hypertension with chronic kidney disease. Blood pressures have been quite labile with spikes into the systolic 200s. #5. Insulin-dependent diabetes mellitus. #6. Sepsis with likely source being pneumonia. UTI also of concern - urine culture positive for yeast. Maintained on IV antibiotics. #7. History of coronary artery disease status post CABG. #8. History of atrial fibrillation. Cardiology following. #9. Protein calorie malnutrition. #10. Diastolic CHF. #11. Metabolic acidosis secondary to acute kidney injury and IV fluids, maintained on oral sodium bicarbonate. #12. Hypernatremia secondary to lack of oral water intake. Improved. #13. Altered mental status. Concern for acute CVA. Neurology following. Plan: Discontinue D5W. Add free water flushes 400 mL every 4 hours with tube feeds. Lasix 40 mg IV once today. Discontinue scheduled labetalol due to bradycardia. Add hydralazine 50 mg 3 times daily. Hold antihypertensives for systolic blood pressure less than 120. Maintain Grullon catheter. Repeat electrolytes in the morning. Follow-up cultures. In view of patient's overall condition and comorbidities, he will not able to tolerate a kidney biopsy at this time. Case discussed with the family - they are okay with proceeding with renal replacement therapy if indicated. Repeat sodium level at 5 PM today.
[2017-08-19] MEDS: hydrALAZINE HCL 50 MG TAB PO SCH ×3 (09:03→21:36)
[2017-08-19] MEDS: CHLORHEXIDINE GLUCONATE 15 ML CUP MUCOUS MEM SCH ×2 (09:03→20:25)
[2017-08-19] MEDS: PANTOPRAZOLE 40 MG/10 ML VIAL IVP SCH (09:03)
[2017-08-19] MEDS: levETIRAcetam IV 750 MG in SODIUM CHLORIDE 0.9% 100 ML IVPB SCH ×2 (09:47→20:25)
[2017-08-19] MEDS: INSULIN DETEMIR 100 UNIT/ML 10 ML VIAL SQ SCH (11:40)
[2017-08-19 12:13] LABS: Glucose,Whole Blood 188 mg/dL (75-99)
--- NOTE | 2017-08-19 13:14 | P.PN ---
Subjective Progress Note Date: 08/19/17 This is a 71-year-old male one of Dr. Lucas Gallo's patient with past medical history of hypertension, hyperlipidemia, diabetes, COPD, ,CHF , alcoholism and worsening heart failure who had open heart surgery with the CABG 2015 ended up having multiple complications and the multiple rehospitalization for worsening shortness of breath, A. fib and other complication. He was last hospitalized on 05/06/2016 at which time he was here for bradycardia and beta kojo was discontinued. He was sent in after neighbor found him in bed very weak, apparently patient has not gotten out of bed for 2 days. The neighbor checks on him on a daily basis, however on her return trip, he hasn't moved out of bed and has soiled himself stooled himself, and hasn't eaten for approximately 48 hours. Patient has difficulty in getting out of bed difficulty ambulating, his son who normally is sees constantly complaining at home, apparently admitted hospital hence no one was caring for the patient except for a visit from a neighbor. Patient has had cough, some wheezing, stiffness of the joint, difficulty in ambulating, patient hasn't had his medications for 2 days as well 08/12: Echocardiogram reveals EF of 50-55% with moderate concentric left ventricular hypertrophy, LA severely dilated at greater than 40, are appears enlarged, mild mitral calcification, mild mitral regurgitation, mild tricuspid regurgitation. Patient has been seen and evaluated by cardiology. Beta kojo was not started due to history of symptomatic bradycardia. Aspirin 81 mg was added. Patient no longer on Coumadin most likely due to risk of bleeding. White count is improved to 20.1. BUN is 63 and creatinine 2.8. TSH is 2.940. Patient is decreased mental status today. Staff was unable to feed him today. His blood pressure is stable. [place] will be changed to half a tablet which is 2.5 mg 3 times daily as needed. Keppra level will be checked in the morning as well as EEG ordered. Patient has been afebrile. PT has recommended subacute rehab. 08/13: Patient improved slightly yesterday evening where he was able to tolerate his dinner and he ate 80% of his dinner. Patient today is still lethargic but open his eyes to voice command following simple commands like moving his extremities up and down 08/14: Patient continued to have adequate urine output with a slight improvement in kidney function. Patient is improved from the mental status standpoint where he is more awake and following simple commands but looks lethargic overall. No major events reported by nursing staff 08/15: Patient was evaluated today, he underwent abdominal/bladder ultrasound, exam revealed limited exam but otherwise normal. Cardiology on consult, who discontinued his amlodipine do to hypotension. Blood pressure did improve to 132/67 today. Creatinine function slightly increased from previous, today 3.3, nephrology consult, recommends to continue with IV hydration, continue to hold lisinopril Lasix. Blood cultures show no growth to date. 08/16: Patient is still lethargic for nurse. Speech therapy has evaluated and made him nothing by mouth as he is too lethargic to eat. Keppra and Protonix changed to IV. Clonidine patch added for blood pressure control. He is continued on IV fluids at 75 mL per hour. Oral medications have been discontinued until patient is more alert. Creatinine is 3.25. Last bowel movement was 2 days ago. He has had good urine output. Repeat urinalysis shows signs of infection and patient is already on Zosyn. Consult with neurology added. 08/17: Patient has been seen by Dr. Presley with thought that metabolic encephalopathy secondary to sepsis and renal failure. CT of the brain revealed no acute intracranial hemorrhage or midline shift. No acute intracranial process. Multifocal lacunar injuries old-appearing old. Diffuse age-related triple atrophy and chronic small vessel ischemic change. Patient remains essentially unresponsive. Clonidine was increased last evening for high blood pressure. Due to elevated sodium IV fluids will be switched to D5W at 75 mL per hour. NG tube to be placed for tube feedings and consult with dietitian. 08/18: Chest x-ray revealed bilateral infiltrate and pleural effusions correlate for heart failure. NG tube in the left upper quadrant likely within the stomach. Patient was seen by Dr. Louis without the UTI could be underlying etiology for metabolic encephalopathy and possible pneumonitis. He requested anesthesia to perform LP and continue Zosyn. Diagnostic LP was done by Dr. Ulrich with return of clear spinal fluid. EEG did not reveal any seizure activity. There is been no seizure activity during this hospitalization. Dr. Presley did order MRI of the brain. A repeat chest x-ray this morning reveals congestive heart failure with small pleural effusions. Decreased pleural fluid on the left side. CT of the brain revealed possible evolving acute subacute infarct internal capsule on the right. Subsequent increase in size compared to prior study. Repeat chest x-ray shows new endotracheal tube. Similar interstitial prominence. Mild basilar opacities mostly on the left side. Mildly decreased. Dr. Mcbride as ordered 1 dose of IV Lasix 40 mg today. Last evening, patient' s blood pressure was elevated and [facility] was able to give labetalol. Patient said that a drop in his blood pressure. Patient was transferred to the intensive care unit last evening and consult with Dr. Robles was added. He was intubated at 4 this morning and remains intubated and on mechanical ventilation. Blood pressure has remained on the high side. Patient did not require vasopressors. White count went up to 20.2 sodium is 150, BUN 57 creatinine 3.1. Currently, sedation is off and patient is unresponsive. CODE STATUS was discussed with the patient's son yesterday afternoon/evening and he wanted the patient to remain full code. 08/19: Patient remains in intensive care unit on mechanical ventilation. He was given Lasix 40 mg once this morning. Chest x-ray this morning shows stable findings, persistent mild central vascular congestion and small bilateral pleural effusions with associated left basilar atelectasis and/or infiltrate. D5W was discontinued. Labetalol discontinued due to bradycardia and hydralazine added. According to Dr. Mcbride, family is okay with proceeding with dialysis. Sodium is 145, creatinine 3.19, BUN 60. Patient has been started on tube feedings and blood sugars are now running high for which Levemir will be started at 10 units along with scale NovoLog. Brother is at the bedside and updated. He does state that patient return to smoking recently. Patient has been afebrile. Objective - Vital Signs Vital signs: Vital Signs Temp 97.3 F L 08/19/17 04:00 Pulse 56 L 08/19/17 07:45 Resp 19 08/19/17 07:00 BP 158/79 08/19/17 07:00 Pulse Ox 100 08/19/17 07:00 Intake & Output 08/18/17 08/19/17 08/19/17 18:59 06:59 18:59 Intake Total 1105.0 1550 130 Output Total 930 815 40 Balance 175.0 735 90 Weight 74.1 kg 74.2 kg Intake: IV 235 1200 100 Dextrose 5% in Water 1, 1100 100 000 ml @ 100 mls/hr IV . Q10H [facility] Rx#:[id number] Dextrose 5% in Water 1, 235 000 ml @ 75 mls/hr IV . [id number] Rx#:[id number] levETIRAcetam IV 750 mg 100 In Sodium Chloride 0.9% 100 ml @ 400 mls/hr IVPB Q12HR [facility] Rx#:[id number] Intake, IV Titration 850.0 100 Amount Dextrose 5% in Water 1, 800 100 000 ml @ 100 mls/hr IV . Q10H [facility] Rx#:[id number] Piperacillin-Tazobactam 3 50.0 .375 gm In Dextrose/Water 1 50ml.bag @ 12.5 mls/hr IVPB Q8H [facility] Rx#: [id number] Tube Feeding 20 190 30 Other 60 Output: Urine 930 815 40 Other: Voiding Method Indwelling Catheter Indwelling Catheter # Bowel Movements 1 1 - Exam General appearance: cooperative, no acute distress, thin - EENT Eyes: anicteric sclerae, EOMI, PERRLA, dentition normal ENT: hard of hearing, NA/AT, normal oropharynx - Neck Neck: no lymphadenopathy, normal ROM, no other, no rigidity, no stridor, no thyromegaly - Respiratory Respiratory: bilateral: CTA, diminished, negative: dullness, rales, rhonchi, wheezing, prolonged expiration - Cardiovascular Rhythm: regular Heart sounds: normal: S1, S2 - Gastrointestinal General gastrointestinal: normal bowel sounds, soft - Integumentary Stage I decubitus ulcer sacrum Integumentary: decreased turgor, normal - Neurologic Neurologic: CNII-XII intact - Musculoskeletal Musculoskeletal: generalized weakness, strength equal bilaterally - Psychiatric Psychiatric: Patient is intubated on mechanical ventilation, no appropriate affect, no intact judgment & insight - Labs CBC & Chem 7: 08/19/17 04:23 08/19/17 04:23 Labs: Abnormal Lab Results - Last 24 Hours (Table) 08/18/17 08/18/17 08/18/17 Range/Units 12:08 17:09 17:17 WBC (3.8-10.6) k/uL RBC (4.30-5.90) m/uL Hgb (13.0-17.5) gm/dL Hct (39.0-53.0) % Plt Count (150-450) k/uL Neutrophils # (1.3-7.7) k/uL ABG pH (7.35-7.45) ABG pO2 (83-108) mmHg ABG O2 Saturation (94-97) % Sodium 146 H (137-145) mmol/L Chloride (98-107) mmol/L Carbon Dioxide (22-30) mmol/L BUN (9-20) mg/dL Creatinine (0.66-1.25) mg/dL Glucose (74-99) mg/dL POC Glucose (mg/dL) 161 H 174 H (75-99) mg/dL Calcium (8.4-10.2) mg/dL Phosphorus (2.5-4.5) mg/dL 08/18/17 08/19/17 08/19/17 Range/Units 20:12 00:05 04:23 WBC 16.0 H (3.8-10.6) k/uL RBC 4.16 L (4.30-5.90) m/uL Hgb 11.5 L (13.0-17.5) gm/dL Hct 37.2 L (39.0-53.0) % Plt Count 137 L (150-450) k/uL Neutrophils # 13.3 H (1.3-7.7) k/uL ABG pH (7.35-7.45) ABG pO2 (83-108) mmHg ABG O2 Saturation (94-97) % Sodium (137-145) mmol/L Chloride (98-107) mmol/L Carbon Dioxide (22-30) mmol/L BUN (9-20) mg/dL Creatinine (0.66-1.25) mg/dL Glucose (74-99) mg/dL POC Glucose (mg/dL) 183 H 218 H (75-99) mg/dL Calcium (8.4-10.2) mg/dL Phosphorus (2.5-4.5) mg/dL 08/19/17 08/19/17 08/19/17 Range/Units 04:23 06:17 06:58 WBC (3.8-10.6) k/uL RBC (4.30-5.90) m/uL Hgb (13.0-17.5) gm/dL Hct (39.0-53.0) % Plt Count (150-450) k/uL Neutrophils # (1.3-7.7) k/uL ABG pH 7.32 L (7.35-7.45) ABG pO2 122 H (83-108) mmHg ABG O2 Saturation 98.7 H (94-97) % Sodium (137-145) mmol/L Chloride 113 H (98-107) mmol/L Carbon Dioxide 20 L (22-30) mmol/L BUN 60 H (9-20) mg/dL Creatinine 3.19 H (0.66-1.25) mg/dL Glucose 223 H (74-99) mg/dL POC Glucose (mg/dL) 266 H (75-99) mg/dL Calcium 8.1 L (8.4-10.2) mg/dL Phosphorus 5.1 H (2.5-4.5) mg/dL Microbiology - Last 24 Hours (Table) 08/17/17 19:20 CSF Gram Stain - Preliminary Cerebral Spinal Fluid CSF Culture - Preliminary 08/18/17 04:15 Gram Stain - Preliminary Sputum Sputum Culture - Preliminary 08/16/17 10:30 Urine Culture - Final Urine,Catheterized Vania sp,not albicans/galbr Assessment and Plan Plan: 1. Metabolic encephalopathy with sepsis of unclear source aspiration pneumonia and UTI and possible evolving stroke is another etiology. Continue Zosyn. [place] discontinued. Keppra and Protonix changed to IV. Status post LP. Consult with Dr. Presley and Dr. Louis. 2. Acute hypoxic respiratory failure requiring intubation and mechanical ventilation. Consult with Dr. Robles appreciated. 3. Elevated troponin, secondary to sepsis 4. Acute kidney injury secondary to ATN secondary to sepsis and hemodynamic instability with chronic kidney disease stage III. Patient is followed by nephrology. 5. Arrhythmia history with prior Nonsustained ventricular tachycardia on 2015 H and was seen by cardiology echocardiogramJuly 2016 showed atrial fibrillation with small pericardial effusion noted ejection fraction 45-50% inferolateral hypokinesis with palpation of LA size over 40. Electrolyte management is optimized 6. History bilateral hydronephrosis mild, improved from last ultrasound history Phimosis with urinary retention resolved monitor for urinary retention continue tamsulosin 7. CAD post CABG. continue aspirin 81 mg orally once every day, 8. Diabetes mellitus type II: Has been on Lantus at 20 units at bedtime along with pre-meal however with the sugars being low, and Lantus on hold , NovoLog sliding scale, current sugars are low 9. Hypertensive cardiovascular disease. Clonidine patch increased, hydralazine 20 mg IV push every 6 hours as needed. 10. Hyperlipidemia: Currently off statin. 11. Chronic A. fib. Patient is no longer on Coumadin. This may be related to risk of falls. 12. Acute on chronic systolic and possible diastolic heart failure. Lasix ordered on a daily basis 12. Recurrent depression: Has been on Prozac 20 mg daily.Xanax at bedtime-- discontinued 13. Seizure history: Has been on Keppra 750 g twice a day with no new seizure activity. Keppra changed to IV. 14. BPH: Off Flomax. [place] catheter 15. Severe GERD: Will add Protonix 40 mg daily 16. Rhabdomyolysis, hold Lipitor 17. Sacral decubitus stage I secondary to prolonged immobilization , overlay mattress and frequent turning 18. Hypernatremia. Nephrology is following. 19. Severe protein calorie malnutrition due to lack of oral intake. Patient will have NG tube placed and tube feeding started. Dietitian consult requested. 20. Prognosis guarded Discharge plan: Subacute rehab Impression and plan of care have been directed as dictated by the signing physician. Carly Greene nurse practitioner acting as scribe for signing physician.
--- NOTE | 2017-08-19 13:24 | P.PN ---
Subjective Progress Note Date: 08/19/17 Principal diagnosis: Acute hypoxic respiratory failure and acute mental status change. This is a 71-year-old white male with history of multiple medical problems including chronic atrial fibrillation, coronary artery disease, previous CABG, congestive heart failure, COPD, diabetes, hypertension, previous non-Q-wave myocardial infarction, seizure disorder, and obstructive sleep apnea syndrome. Patient was admitted on 08/11/2017, apparently the patient lives with his son, will usually takes care of him. However his son was recently admitted to the hospital, and the patient was being checked upon by a neighbor. According to the neighbor, patient was in bed for 2 days, unable to get out of bed. He was noted to be generally weak, incontinent in bed, hence patient was brought into the ER, and he was admitted. Patient was admitted with the impression of acute metabolic encephalopathy and possible sepsis and urinary tract infection, and since then the patient has been seen by many consultants including cardiology, infectious disease, neurology, internal medicine, nephrology, anesthesia, and I was notified about this patient leacher hours when the rapid response team responded to the patient on the medical floor being more up on that and unresponsive. Hence I recommended immediate intubation of the patient, and transferred to the intensive care unit. I also recommended CT of the head which was done, and since then the patient underwent lumbar puncture by anesthesia. Which is so far nondiagnostic. I evaluated the patient in the ICU on mechanical ventilation, he is extremely difficult to arouse, propofol was discontinued completely, and still unable to arouse the patient. May open eyes only on deep painful stimuli, otherwise could not get any responses from the patient. ABG post intubation showed a pO2 of 400 pCO2 of 40 and pH of 7.32. CBC showed leukocytosis with WBC count of 20.2 hemoglobin of 12.8. There is evidence of hypernatremia and hyperchloremia, renal failure is not clear whether this is acute or chronic, his BUN was 57 creatinine 3.10, and there was evidence of bacteriuria, pyuria, negative workup for connective tissue disease, however the patient was noted to have gammopathy based on his serum protein electrophoresis. free kappa And lambda chains were elevated in the serum protein electrophoresis. CT of the brain was reviewed. Notes from different consultants were all reviewed looking back on previous admissions, patient had a creatinine of 1.2 in May of 2016. Again I could not obtain any medical information from the patient himself, and no family members available. Reevaluated today on 08/19/2017, patient remains on mechanical ventilation, off all narcotics and sedatives, for the last 24 hours at least. Patient remains poorly responsive to any stimuli however today he is opening his eyes to painful stimuli, and he is wiggling his toes. ABG showed a pO2 of 122 pCO2 of 42 pH of 7.32. Electrolytes are relatively normal however his BUN is 60 creatinine is 3.19, renal profile is basically the same over the last few days. Patient clearly has nonoliguric acute kidney injury. Blood cultures remain negative. Urine cultures are positive final identification and sensitivity is pending. Patient remains on empiric antibiotics. And he is being followed by infectious disease on consultation. Upon her fluid studies are Objective - Vital Signs Vital signs: Vital Signs Temp 98.3 F 08/19/17 12:00 Pulse 65 08/19/17 13:00 Resp 16 08/19/17 13:00 BP 147/67 08/19/17 13:00 Pulse Ox 100 08/19/17 13:00 Intake & Output 08/18/17 08/19/17 08/19/17 18:59 06:59 18:59 Intake Total 1105.0 1550 1340 Output Total 930 815 65 Balance 175.0 735 1275 Weight 74.1 kg 74.2 kg 74.2 kg Intake: IV 235 1200 300 Dextrose 5% in Water 1, 1100 200 000 ml @ 100 mls/hr IV . Q10H [facility] Rx#:[id number] Dextrose 5% in Water 1, 235 000 ml @ 75 mls/hr IV . [id number] [facility] Rx#:[id number] levETIRAcetam IV 750 mg 100 100 In Sodium Chloride 0.9% 100 ml @ 400 mls/hr IVPB Q12HR [facility] Rx#:[id number] Intake, IV Titration 850.0 100 Amount Dextrose 5% in Water 1, 800 100 000 ml @ 100 mls/hr IV . Q10H [facility] Rx#:[id number] Piperacillin-Tazobactam 3 50.0 .375 gm In Dextrose/Water 1 50ml.bag @ 12.5 mls/hr IVPB Q8H [facility] Rx#: [id number] Tube Feeding 20 190 240 Other 60 800 Output: Urine 930 815 65 Other: Voiding Method Indwelling Catheter Indwelling Catheter Indwelling Catheter # Bowel Movements 1 1 - Exam Physical Exam: Revealed a 71-year-old white male, cachectic, looks chronically ill on mechanical ventilation, sedated, in no form of respiratory distress at present. Head: Atraumatic, normocephalic. Eyes: Pupils are reactive to light but sluggish. No icterus is noted. Patient opens eyes only on deep painful stimuli. HEENT:[Neck is supple.] [No neck masses.] [No thyromegaly.] [No JVD.] Dry mucous membranes were noted. Chest: [Diminished breath sounds at the bases, no crackles or rhonchi or wheezes..] Cardiac Exam: [Normal S1 and S2, no S3 gallop, no murmur.] Abdomen: [Flat, Soft, nontender, no megaly, no rebound, no guarding, normal bowel sounds.] Extremities: [No clubbing, no edema, no cyanosis.] Neurological : Patient is responsive only to deep painful stimuli, opens eyes only and at times may wiggle toes upon command. Continues to have poor gag reflex. Psychiatric: Could not be assessed Musculoskeletal: Could not be assessed. Lymphatics: No lymphadenopathy. - Labs CBC & Chem 7: 08/19/17 04:23 08/19/17 04:23 Labs: Abnormal Lab Results - Last 24 Hours (Table) 08/18/17 08/18/17 08/18/17 Range/Units 17:09 17:17 20:12 WBC (3.8-10.6) k/uL RBC (4.30-5.90) m/uL Hgb (13.0-17.5) gm/dL Hct (39.0-53.0) % Plt Count (150-450) k/uL Neutrophils # (1.3-7.7) k/uL ABG pH (7.35-7.45) ABG pO2 (83-108) mmHg ABG O2 Saturation (94-97) % Sodium 146 H (137-145) mmol/L Chloride (98-107) mmol/L Carbon Dioxide (22-30) mmol/L BUN (9-20) mg/dL Creatinine (0.66-1.25) mg/dL Glucose (74-99) mg/dL POC Glucose (mg/dL) 174 H 183 H (75-99) mg/dL Calcium (8.4-10.2) mg/dL Phosphorus (2.5-4.5) mg/dL 08/19/17 08/19/17 08/19/17 Range/Units 00:05 04:23 04:23 WBC 16.0 H (3.8-10.6) k/uL RBC 4.16 L (4.30-5.90) m/uL Hgb 11.5 L (13.0-17.5) gm/dL Hct 37.2 L (39.0-53.0) % Plt Count 137 L (150-450) k/uL Neutrophils # 13.3 H (1.3-7.7) k/uL ABG pH (7.35-7.45) ABG pO2 (83-108) mmHg ABG O2 Saturation (94-97) % Sodium (137-145) mmol/L Chloride 113 H (98-107) mmol/L Carbon Dioxide 20 L (22-30) mmol/L BUN 60 H (9-20) mg/dL Creatinine 3.19 H (0.66-1.25) mg/dL Glucose 223 H (74-99) mg/dL POC Glucose (mg/dL) 218 H (75-99) mg/dL Calcium 8.1 L (8.4-10.2) mg/dL Phosphorus 5.1 H (2.5-4.5) mg/dL 08/19/17 08/19/17 08/19/17 Range/Units 06:17 06:58 12:11 WBC (3.8-10.6) k/uL RBC (4.30-5.90) m/uL Hgb (13.0-17.5) gm/dL Hct (39.0-53.0) % Plt Count (150-450) k/uL Neutrophils # (1.3-7.7) k/uL ABG pH 7.32 L (7.35-7.45) ABG pO2 122 H (83-108) mmHg ABG O2 Saturation 98.7 H (94-97) % Sodium (137-145) mmol/L Chloride (98-107) mmol/L Carbon Dioxide (22-30) mmol/L BUN (9-20) mg/dL Creatinine (0.66-1.25) mg/dL Glucose (74-99) mg/dL POC Glucose (mg/dL) 266 H 188 H (75-99) mg/dL Calcium (8.4-10.2) mg/dL Phosphorus (2.5-4.5) mg/dL Microbiology - Last 24 Hours (Table) 08/17/17 19:20 CSF Gram Stain - Preliminary Cerebral Spinal Fluid CSF Culture - Preliminary 08/18/17 04:15 Gram Stain - Preliminary Sputum Sputum Culture - Preliminary 08/16/17 10:30 Urine Culture - Final Urine,Catheterized Vania sp,not albicans/galbr Assessment and Plan Assessment: Impression: 1 acute hypoxic respiratory failure requiring intubation and mechanical ventilation, most likely secondary to sepsis, and the most likely sources could be urine or lungs/aspiration pneumonia 2 acute urinary tract infection, and sepsis. 3 acute on chronic non-oliguric renal failure secondary to ATN secondary to sepsis and hemodynamic instability. 4 chronic kidney disease stage III secondary to diabetes. 5 hypernatremia secondary to free water deficit. 6 acute metabolic acidosis secondary to sepsis and renal failure. 7 strongly suspect protein calorie malnutrition, moderate in severity. 8 history of chronic atrial fibrillation 9 history of coronary artery disease and previous CABG 10 suspect some component of diastolic congestive heart failure. 11 acute metabolic encephalopathy secondary to sepsis 12 history of seizure disorder Recommendation: Continue ventilatory support, continue antibiotics, hemodynamic support as needed, GI and DVT prophylaxis, adjust ventilator settings accordingly, reviewed the results of the spinal fluid so far at least from what is available is nondiagnostic. Presently the patient is on Zosyn. Address nutritional status, start enteral feeding. Overall prognostic picture is guarded, discussed his condition with his brother at bedside. Prognosis remains extremely poor and guarded. Critical care time is 35 minutes. Time with Patient: Greater than 30
--- NOTE | 2017-08-19 16:19 | PN ---
PROGRESS NOTE DATE OF SERVICE: 08/19/2017. REASON FOR FOLLOWUP: 1. Possible aspiration pneumonitis. 2. UTI. INTERVAL HISTORY: The patient is afebrile. He is hemodynamically stable, not on any pressor support. FiO2 is down to 35%. Remains to be on the vent. No significant diarrhea per the nursing staff. PHYSICAL EXAMINATION: Blood pressure 136/70, pulse of 68, temperature 98.3. He is 99% on 35% FiO2. General description is an elderly male lying in bed in no distress. RESPIRATORY: Unlabored breathing with decreased breath sounds in the bases. No wheeze. HEART: S1, S2. Regular rate and rhythm. ABDOMEN: Soft. No tenderness. LABS: BUN of 60, creatinine 3.19. White count down to 16,000. C difficile is currently pending. Urine with a ulysses species. DIAGNOSTIC IMPRESSION AND PLAN: Patient with leukocytosis, likely multifactorial, likely a component of catheter- associated urinary tract infection as well as aspiration pneumonitis, currently on Zosyn. That will be continued. Short course of oral Diflucan. Continue with supportive care. Family was present at bedside. Their questions were answered. MMODL / IJN: [id number] /
[2017-08-19 17:32] LABS: Albumin 2.1 g/dL (3.5-5.0); Potassium 3.7 mmol/L (3.5-5.1); Total Protein 5.1 g/dL (6.3-8.2)
[2017-08-19 17:33] LABS: Total Bilirubin 0.2 mg/dL (0.2-1.3)
[2017-08-19] MEDS: ENOXAPARIN 30 MG/0.3 ML SYRINGE SQ SCH (18:01)
[2017-08-19] MEDS: FLUCONAZOLE ORAL SUSP 1,400 MG/35 ML BOTTLE NG-TUBE SCH (18:01)
[2017-08-19 18:49] LABS: Glucose,Whole Blood 164 mg/dL (75-99)
--- NOTE | 2017-08-19 19:54 | P.PN ---
Subjective Progress Note Date: 08/19/17 The patient is a 71-year-old man admitted with sepsis renal failure multiple medical problems. mechanical maintenance hours of 08/18/2017 he became unresponsive and required immediate intubation for respiratory failure. He is currently still not responding to any verbal stimuli he does withdraw to painful stimuli. He has had a spinal tap and there is no signs of to cranial infection. He does have acute kidney injury superimposed on chronic kidney injury and is been treated for urinary tract infection and possible aspiration pneumonitis. He has had multiple CTs of the brain which did not show a definite new infarct. He has a history of seizure disorder but has not displayed any seizures and has had an EEG which showed only some slowing. Objective - Vital Signs Vital signs: Vital Signs Temp 97.9 F 08/19/17 16:00 Pulse 60 08/19/17 19:37 Resp 22 08/19/17 19:00 BP 110/61 08/19/17 19:00 Pulse Ox 99 08/19/17 19:00 Intake & Output 08/19/17 08/19/17 08/20/17 06:59 18:59 06:59 Intake Total 1550 2030 Output Total 815 100 Balance 735 1930 Weight 74.2 kg 74.2 kg Intake: IV 1200 300 Dextrose 5% in Water 1, 1100 200 000 ml @ 100 mls/hr IV . Q10H [facility] Rx#:[id number] levETIRAcetam IV 750 mg 100 100 In Sodium Chloride 0.9% 100 ml @ 400 mls/hr IVPB Q12HR [facility] Rx#:[id number] Intake, IV Titration 100 50 Amount Dextrose 5% in Water 1, 100 000 ml @ 100 mls/hr IV . Q10H [facility] Rx#:[id number] Piperacillin-Tazobactam 3 50 .375 gm In Dextrose/Water 1 50ml.bag @ 12.5 mls/hr IVPB Q8H [facility] Rx#: [id number] Tube Feeding 190 480 Other 60 1200 Output: Urine 815 100 Other: Voiding Method Indwelling Catheter Indwelling Catheter # Bowel Movements 1 - Neurologic Neurologic Comment(s): On physical examination patient is intubated Cardiac regular rate and rhythm Neurologic examination: Mental status patient did not respond to verbal stimuli he did not open eyes to verbal stimuli Cranial nerve examination pupils were 2 mm equal and sluggish Motor examination he withdrew to painful stimuli - Labs CBC & Chem 7: 08/19/17 04:23 08/19/17 17:06 Labs: Abnormal Lab Results - Last 24 Hours (Table) 08/18/17 08/19/17 08/19/17 Range/Units 20:12 00:05 04:23 WBC 16.0 H (3.8-10.6) k/uL RBC 4.16 L (4.30-5.90) m/uL Hgb 11.5 L (13.0-17.5) gm/dL Hct 37.2 L (39.0-53.0) % Plt Count 137 L (150-450) k/uL Neutrophils # 13.3 H (1.3-7.7) k/uL ABG pH (7.35-7.45) ABG pO2 (83-108) mmHg ABG O2 Saturation (94-97) % Sodium (137-145) mmol/L Chloride (98-107) mmol/L Carbon Dioxide (22-30) mmol/L BUN (9-20) mg/dL Creatinine (0.66-1.25) mg/dL Glucose (74-99) mg/dL POC Glucose (mg/dL) 183 H 218 H (75-99) mg/dL Calcium (8.4-10.2) mg/dL Phosphorus (2.5-4.5) mg/dL ALT (21-72) U/L Total Protein (6.3-8.2) g/dL Albumin (3.5-5.0) g/dL 08/19/17 08/19/17 08/19/17 Range/Units 04:23 06:17 06:58 WBC (3.8-10.6) k/uL RBC (4.30-5.90) m/uL Hgb (13.0-17.5) gm/dL Hct (39.0-53.0) % Plt Count (150-450) k/uL Neutrophils # (1.3-7.7) k/uL ABG pH 7.32 L (7.35-7.45) ABG pO2 122 H (83-108) mmHg ABG O2 Saturation 98.7 H (94-97) % Sodium (137-145) mmol/L Chloride 113 H (98-107) mmol/L Carbon Dioxide 20 L (22-30) mmol/L BUN 60 H (9-20) mg/dL Creatinine 3.19 H (0.66-1.25) mg/dL Glucose 223 H (74-99) mg/dL POC Glucose (mg/dL) 266 H (75-99) mg/dL Calcium 8.1 L (8.4-10.2) mg/dL Phosphorus 5.1 H (2.5-4.5) mg/dL ALT (21-72) U/L Total Protein (6.3-8.2) g/dL Albumin (3.5-5.0) g/dL 08/19/17 08/19/17 08/19/17 Range/Units 12:11 17:06 18:46 WBC (3.8-10.6) k/uL RBC (4.30-5.90) m/uL Hgb (13.0-17.5) gm/dL Hct (39.0-53.0) % Plt Count (150-450) k/uL Neutrophils # (1.3-7.7) k/uL ABG pH (7.35-7.45) ABG pO2 (83-108) mmHg ABG O2 Saturation (94-97) % Sodium 146 H (137-145) mmol/L Chloride 111 H (98-107) mmol/L Carbon Dioxide 21 L (22-30) mmol/L BUN 61 H (9-20) mg/dL Creatinine 3.10 H (0.66-1.25) mg/dL Glucose 165 H (74-99) mg/dL POC Glucose (mg/dL) 188 H 164 H (75-99) mg/dL Calcium 8.0 L (8.4-10.2) mg/dL Phosphorus (2.5-4.5) mg/dL ALT 18 L (21-72) U/L Total Protein 5.1 L (6.3-8.2) g/dL Albumin 2.1 L (3.5-5.0) g/dL Microbiology - Last 24 Hours (Table) 08/17/17 19:20 CSF Gram Stain - Preliminary Cerebral Spinal Fluid CSF Culture - Preliminary 08/18/17 04:15 Gram Stain - Preliminary Sputum Sputum Culture - Preliminary Assessment and Plan (1) Metabolic encephalopathy Current Visit: Yes Status: Acute SNOMED Code(s): 07347226 (2) Acute kidney injury superimposed on chronic kidney disease Current Visit: Yes Status: Acute SNOMED Code(s): 25801363 (3) History of seizures Current Visit: Yes Status: Chronic SNOMED Code(s): 592598386 (4) Coronary artery disease Current Visit: No Status: Chronic Code(s): I25.10 - ATHSCL HEART DISEASE OF [place] CORONARY ARTERY W/O ANG PCTRS SNOMED Code(s): 56136932 (5) Respiratory failure Current Visit: No Status: Acute SNOMED Code(s): 278577060 Plan: The patient is a 71-year-old man with history of multiple medical problems who was admitted and treated for sepsis acute kidney injury and who had an acute hypoxic respiratory event requiring intubation. He is currently intubated and in the ICU and is being treated for sepsis. He appears to be neurologically unchanged. 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 He has a history of seizures but EEG did not show any seizure activity and is care Keppra is in the therapeutic range. Prognosis is guarded
[2017-08-19 20:16] LABS: Glucose,Whole Blood 171 mg/dL (75-99)
[2017-08-20 00:13] LABS: Glucose,Whole Blood 133 mg/dL (75-99)
[2017-08-20] MEDS: MORPHINE SULFATE 4 MG/0.8 ML SYRINGE (INJ) IVP PRN ×2 (04:07→17:13)
[2017-08-20 04:08] LABS: Basophils % (A) 0 %; Eosinophils # (A) 0.5 k/uL (0-0.7); Eosinophils % (A) 3 %; HCT 36.9 % (39.0-53.0); HGB 11.2 gm/dL (13.0-17.5); Lymphocytes # (A) 1.1 k/uL (1.0-4.8); Lymphocytes % (A) 8 %; MCH 26.7 pg (25.0-35.0); MCHC 30.5 g/dL (31.0-37.0); MCV 87.5 fL (80.0-100.0); Mean Platelet Volume 9.4; Monocytes # (A) 0.8 k/uL (0-1.0); Monocytes % (A) 5 %; Neutrophils # (A) 11.4 k/uL (1.3-7.7); Neutrophils % (A) 81 %; Platelet Count 164 k/uL (150-450); RBC 4.22 m/uL (4.30-5.90); RDW 14.7 % (11.5-15.5); WBC 14.1 k/uL (3.8-10.6)
[2017-08-20 04:12] LABS: INR 1.1 (<1.2); Prothrombin Time 10.9 sec (9.0-12.0)
[2017-08-20 04:37] LABS: Calcium 7.8 mg/dL (8.4-10.2); Phosphorus 5.3 mg/dL (2.5-4.5); Potassium 3.6 mmol/L (3.5-5.1)
[2017-08-20] MEDS ORDERED: POTASSIUM BICARBONATE/CIT AC 20 MEQ TABLET.EFF PO ONE (05:45)
[2017-08-20] MEDS: PIPERACILLIN-TAZOBACTAM 3.375 GM in DEXTROSE/WATER 1 50ML.BAG IVPB SCH ×3 (06:01→22:58)
[2017-08-20 06:06] LABS: Glucose,Whole Blood 165 mg/dL (75-99)
[2017-08-20] MEDS: INSULIN ASPART 100 UNIT/ML 1 ML 10 ML VIAL SQ SCH ×3 (06:06→17:27)
--- NOTE | 2017-08-20 06:56 | XR ---
EXAMINATION TYPE: XR chest 1V DATE OF EXAM: 08/20/2017 HISTORY: shortness of breath. REFERENCE: Previous study dated 08/19/2017. FINDINGS: There has been a midline sternotomy. Patient is ET tube and NG tube remain in place, unchanged in appearance. There continues be left basilar airspace disease. There is vascular congestion and mild edema. There is minimal right basilar airspace disease. The heart is mildly enlarged. IMPRESSION: 1. MILD CARDIOMEGALY. 2. BIBASILAR AIRSPACE DISEASE. 3. VASCULAR. CONGESTION.
[2017-08-20] MEDS: IPRATROPIUM-ALBUTEROL 3 ML NEB INHALATION SCH ×4 (07:11→19:37)
[2017-08-20] MEDS: BUDESONIDE 0.5 MG/2 ML NEBU INHALATION SCH ×2 (07:11→19:37)
[2017-08-20] MEDS: PANTOPRAZOLE 40 MG/10 ML VIAL IVP SCH (07:52)
[2017-08-20] MEDS: INSULIN DETEMIR 100 UNIT/ML 10 ML VIAL SQ SCH (07:52)
[2017-08-20] MEDS: CHLORHEXIDINE GLUCONATE 15 ML CUP MUCOUS MEM SCH (07:52)
[2017-08-20] MEDS: hydrALAZINE HCL 50 MG TAB PO SCH ×3 (07:53→21:50)
[2017-08-20] MEDS: FLUCONAZOLE ORAL SUSP 1,400 MG/35 ML BOTTLE NG-TUBE SCH (07:55)
[2017-08-20] MEDS: levETIRAcetam IV 750 MG in SODIUM CHLORIDE 0.9% 100 ML IVPB SCH ×2 (07:56→21:49)
[2017-08-20 08:20] LABS: ABG Base Excess -3.2 mmol/L; ABG HCO3 23 mmol/L (21-25); ABG Oxygen Saturation 98.7 % (94-97); ABG PCO2 43 mmHg (35-45); ABG PH 7.33 (7.35-7.45); ABG PO2 140 mmHg (83-108); ABG TCO2 24 mmol/L (19-24)
--- NOTE | 2017-08-20 08:45 | P.PN ---
Subjective Progress Note Date: 08/20/17 Principal diagnosis: This is a 71-year-old male seen in consultation because of acute kidney injury and chronic kidney disease. The cause of the acute kidney injury is prerenal, he does have Vania UTI and possible pneumonia. He is known with hypertension and hyperlipidemia and diabetes COPD CHF alcoholism. Has had coronary artery bypass graft in 2014 He was admitted with syncope, found by a neighbor in the bed at his home.. Workup has shown normal CT of the brain. He is also known with seizure disorders but his EEG is unremarkable for any status epilepticus. Drug screen is not available alcohol level not available. This morning he is on the vent 35% FiO2 but awake alert responds moves all his rest extremities. Currently he is on water via NG 400 mL every 4 hours. He had hypernatremia which is now improved from 150-143. 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 The cause of this transient urine output of 700 mL unclear maybe there was some Grullon catheter malfunction which has now after emptying the bladder shows significant oliguria. Objective - Vital Signs Vital signs: Vital Signs Temp 98.6 F 08/20/17 08:00 Pulse 57 L 08/20/17 08:00 Resp 22 08/20/17 08:00 BP 125/60 08/20/17 08:00 Pulse Ox 99 08/20/17 08:00 Intake & Output 08/19/17 08/20/17 08/20/17 18:59 06:59 18:59 Intake Total 2030 1962.5 105.0 Output Total 100 865 25 Balance 1930 1097.5 80.0 Weight 74.2 kg 76.5 kg Intake: IV 300 162.5 25.0 Dextrose 5% in Water 1, 200 000 ml @ 100 mls/hr IV . Q10H [facility] Rx#:[id number] Piperacillin-Tazobactam 3 62.5 25.0 .375 gm In Dextrose/Water 1 50ml.bag @ 12.5 mls/hr IVPB Q8H [facility] Rx#: [id number] levETIRAcetam IV 750 mg 100 100 In Sodium Chloride 0.9% 100 ml @ 400 mls/hr IVPB Q12HR [facility] Rx#:[id number] Intake, IV Titration 50 Amount Piperacillin-Tazobactam 3 50 .375 gm In Dextrose/Water 1 50ml.bag @ 12.5 mls/hr IVPB Q8H [facility] Rx#: [id number] Tube Feeding 480 600 80 Other 1200 1200 Output: Urine 100 865 25 Other: Voiding Method Indwelling Catheter Indwelling Catheter # Bowel Movements 1 Vital signs are stable. General: The patient appeared well nourished and normally developed. Currently intubated. HEENT: Head exam is unremarkable. Neck is without jugular venous distension. LUNGS: Lungs are clear to auscultation and percussion. Breath sounds decreased. HEART: Rate and Rhythm are regular. First and second heart sounds normal. No murmurs, rubs or gallops. ABDOMEN: Abdominal exam reveals normal bowel sounds. Non-tender and non- distended. No evidence of peritonitis. EXTREMITITES: No clubbing, cyanosis, or edema. 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 No asterixis or tremors - Labs CBC & Chem 7: 08/20/17 03:58 08/20/17 03:58 Labs: Abnormal Lab Results - Last 24 Hours (Table) 08/19/17 08/19/17 08/19/17 Range/Units 12:11 17:06 18:46 WBC (3.8-10.6) k/uL RBC (4.30-5.90) m/uL Hgb (13.0-17.5) gm/dL Hct (39.0-53.0) % MCHC (31.0-37.0) g/dL Neutrophils # (1.3-7.7) k/uL ABG pH (7.35-7.45) ABG pO2 (83-108) mmHg ABG O2 Saturation (94-97) % Sodium 146 H (137-145) mmol/L Chloride 111 H (98-107) mmol/L Carbon Dioxide 21 L (22-30) mmol/L BUN 61 H (9-20) mg/dL Creatinine 3.10 H (0.66-1.25) mg/dL Glucose 165 H (74-99) mg/dL POC Glucose (mg/dL) 188 H 164 H (75-99) mg/dL Calcium 8.0 L (8.4-10.2) mg/dL Phosphorus (2.5-4.5) mg/dL ALT 18 L (21-72) U/L Total Protein 5.1 L (6.3-8.2) g/dL Albumin 2.1 L (3.5-5.0) g/dL 08/19/17 08/20/17 08/20/17 Range/Units 20:14 00:12 03:58 WBC 14.1 H (3.8-10.6) k/uL RBC 4.22 L (4.30-5.90) m/uL Hgb 11.2 L (13.0-17.5) gm/dL Hct 36.9 L (39.0-53.0) % MCHC 30.5 L (31.0-37.0) g/dL Neutrophils # 11.4 H (1.3-7.7) k/uL ABG pH (7.35-7.45) ABG pO2 (83-108) mmHg ABG O2 Saturation (94-97) % Sodium (137-145) mmol/L Chloride (98-107) mmol/L Carbon Dioxide (22-30) mmol/L BUN (9-20) mg/dL Creatinine (0.66-1.25) mg/dL Glucose (74-99) mg/dL POC Glucose (mg/dL) 171 H 133 H (75-99) mg/dL Calcium (8.4-10.2) mg/dL Phosphorus (2.5-4.5) mg/dL ALT (21-72) U/L Total Protein (6.3-8.2) g/dL Albumin (3.5-5.0) g/dL 08/20/17 08/20/17 08/20/17 Range/Units 03:58 06:04 08:17 WBC (3.8-10.6) k/uL RBC (4.30-5.90) m/uL Hgb (13.0-17.5) gm/dL Hct (39.0-53.0) % MCHC (31.0-37.0) g/dL Neutrophils # (1.3-7.7) k/uL ABG pH 7.33 L (7.35-7.45) ABG pO2 140 H (83-108) mmHg ABG O2 Saturation 98.7 H (94-97) % Sodium (137-145) mmol/L Chloride 108 H (98-107) mmol/L Carbon Dioxide (22-30) mmol/L BUN 59 H (9-20) mg/dL Creatinine 3.30 H (0.66-1.25) mg/dL Glucose 148 H (74-99) mg/dL POC Glucose (mg/dL) 165 H (75-99) mg/dL Calcium 7.8 L (8.4-10.2) mg/dL Phosphorus 5.3 H (2.5-4.5) mg/dL ALT (21-72) U/L Total Protein (6.3-8.2) g/dL Albumin (3.5-5.0) g/dL Microbiology - Last 24 Hours (Table) 08/17/17 19:20 CSF Gram Stain - Preliminary Cerebral Spinal Fluid CSF Culture - Preliminary Assessment and Plan Assessment: Impression 1. Acute kidney injury with possible sepsis from pneumonia and urinary tract infection with obtundation, an element of diuretics and nakita inhibitors additionally. Creatinine worsening urine output down. Patient is in ATN currently and expected to recover now that he is hemodynamically stable. Creatinine currently 3.3, but urine output is decreasing and the last 4 hours she had only 25 mL 2. Chronic kidney disease with diabetic nephropathy and proteinuria. Serologies negative so far 3. Hyponatremia secondary to decreased free water intake. Improved with water through the NG tube but 400 mL every 4 hours sodium improved from 150-143. 4. When dependent respiratory failure on 35% FiO2. 5. Urinary tract infection. 6. History of coronary artery bypass graft. 7. History of seizure disorder on Keppra. 8. Acute changes in mental status with normal CT scans and metabolic workup was negative. Roca rings not performed on admission and alcohol level not available. Recommendation. 1. Maintain the water flushes 400 mL every 4 hours. 2. Maintain current antihypertensive regimen her pressure is in the optimal range of 120-140. 3. May need hemodialysis support and, will reassess on a daily basis. No need for dialysis today urgently. 4. Expect renal recovery in the next few days 5. Monitor sodium and electrolytes on a daily basis
--- NOTE | 2017-08-20 11:30 | P.PN ---
Subjective Progress Note Date: 08/20/17 This is a 71-year-old male one of Dr. Lucas Gallo's patient with past medical history of hypertension, hyperlipidemia, diabetes, COPD, ,CHF , alcoholism and worsening heart failure who had open heart surgery with the CABG 2015 ended up having multiple complications and the multiple rehospitalization for worsening shortness of breath, A. fib and other complication. He was last hospitalized on 05/06/2016 at which time he was here for bradycardia and beta kojo was discontinued. He was sent in after neighbor found him in bed very weak, apparently patient has not gotten out of bed for 2 days. The neighbor checks on him on a daily basis, however on her return trip, he hasn't moved out of bed and has soiled himself stooled himself, and hasn't eaten for approximately 48 hours. Patient has difficulty in getting out of bed difficulty ambulating, his son who normally is sees constantly complaining at home, apparently admitted hospital hence no one was caring for the patient except for a visit from a neighbor. Patient has had cough, some wheezing, stiffness of the joint, difficulty in ambulating, patient hasn't had his medications for 2 days as well 08/12: Echocardiogram reveals EF of 50-55% with moderate concentric left ventricular hypertrophy, LA severely dilated at greater than 40, are appears enlarged, mild mitral calcification, mild mitral regurgitation, mild tricuspid regurgitation. Patient has been seen and evaluated by cardiology. Beta kojo was not started due to history of symptomatic bradycardia. Aspirin 81 mg was added. Patient no longer on Coumadin most likely due to risk of bleeding. White count is improved to 20.1. BUN is 63 and creatinine 2.8. TSH is 2.940. Patient is decreased mental status today. Staff was unable to feed him today. His blood pressure is stable. [place] will be changed to half a tablet which is 2.5 mg 3 times daily as needed. Keppra level will be checked in the morning as well as EEG ordered. Patient has been afebrile. PT has recommended subacute rehab. 08/13: Patient improved slightly yesterday evening where he was able to tolerate his dinner and he ate 80% of his dinner. Patient today is still lethargic but open his eyes to voice command following simple commands like moving his extremities up and down 08/14: Patient continued to have adequate urine output with a slight improvement in kidney function. Patient is improved from the mental status standpoint where he is more awake and following simple commands but looks lethargic overall. No major events reported by nursing staff 08/15: Patient was evaluated today, he underwent abdominal/bladder ultrasound, exam revealed limited exam but otherwise normal. Cardiology on consult, who discontinued his amlodipine do to hypotension. Blood pressure did improve to 132/67 today. Creatinine function slightly increased from previous, today 3.3, nephrology consult, recommends to continue with IV hydration, continue to hold lisinopril Lasix. Blood cultures show no growth to date. 08/16: Patient is still lethargic for nurse. Speech therapy has evaluated and made him nothing by mouth as he is too lethargic to eat. Keppra and Protonix changed to IV. Clonidine patch added for blood pressure control. He is continued on IV fluids at 75 mL per hour. Oral medications have been discontinued until patient is more alert. Creatinine is 3.25. Last bowel movement was 2 days ago. He has had good urine output. Repeat urinalysis shows signs of infection and patient is already on Zosyn. Consult with neurology added. 08/17: Patient has been seen by Dr. Presley with thought that metabolic encephalopathy secondary to sepsis and renal failure. CT of the brain revealed no acute intracranial hemorrhage or midline shift. No acute intracranial process. Multifocal lacunar injuries old-appearing old. Diffuse age-related triple atrophy and chronic small vessel ischemic change. Patient remains essentially unresponsive. Clonidine was increased last evening for high blood pressure. Due to elevated sodium IV fluids will be switched to D5W at 75 mL per hour. NG tube to be placed for tube feedings and consult with dietitian. 08/18: Chest x-ray revealed bilateral infiltrate and pleural effusions correlate for heart failure. NG tube in the left upper quadrant likely within the stomach. Patient was seen by Dr. Louis without the UTI could be underlying etiology for metabolic encephalopathy and possible pneumonitis. He requested anesthesia to perform LP and continue Zosyn. Diagnostic LP was done by Dr. Ulrich with return of clear spinal fluid. EEG did not reveal any seizure activity. There is been no seizure activity during this hospitalization. Dr. Presley did order MRI of the brain. A repeat chest x-ray this morning reveals congestive heart failure with small pleural effusions. Decreased pleural fluid on the left side. CT of the brain revealed possible evolving acute subacute infarct internal capsule on the right. Subsequent increase in size compared to prior study. Repeat chest x-ray shows new endotracheal tube. Similar interstitial prominence. Mild basilar opacities mostly on the left side. Mildly decreased. Dr. Mcbride as ordered 1 dose of IV Lasix 40 mg today. Last evening, patient' s blood pressure was elevated and [facility] was able to give labetalol. Patient said that a drop in his blood pressure. Patient was transferred to the intensive care unit last evening and consult with Dr. Robles was added. He was intubated at 4 this morning and remains intubated and on mechanical ventilation. Blood pressure has remained on the high side. Patient did not require vasopressors. White count went up to 20.2 sodium is 150, BUN 57 creatinine 3.1. Currently, sedation is off and patient is unresponsive. CODE STATUS was discussed with the patient's son yesterday afternoon/evening and he wanted the patient to remain full code. 08/19: Patient remains in intensive care unit on mechanical ventilation. He was given Lasix 40 mg once this morning. Chest x-ray this morning shows stable findings, persistent mild central vascular congestion and small bilateral pleural effusions with associated left basilar atelectasis and/or infiltrate. D5W was discontinued. Labetalol discontinued due to bradycardia and hydralazine added. According to Dr. Mcbride, family is okay with proceeding with dialysis. Sodium is 145, creatinine 3.19, BUN 60. Patient has been started on tube feedings and blood sugars are now running high for which Levemir will be started at 10 units along with scale NovoLog. Brother is at the bedside and updated. He does state that patient return to smoking recently. Patient has been afebrile. 08/20: Patient remains in the intensive care unit, he is currently off propofol for the past 24 hours, he is more awake, he is following directions, he is most likely would be extubated today. Objective - Vital Signs Vital signs: Vital Signs Temp 97.5 F L 08/20/17 04:00 Pulse 59 L 08/20/17 07:14 Resp 18 08/20/17 06:00 BP 139/68 08/20/17 06:00 Pulse Ox 99 08/20/17 06:00 Intake & Output 08/19/17 08/20/17 08/20/17 18:59 06:59 18:59 Intake Total 2029 1962.5 40 Output Total 100 865 Balance 1930 1097.5 40 Weight 74.2 kg 76.5 kg Intake: IV 300 162.5 Dextrose 5% in Water 1, 200 000 ml @ 100 mls/hr IV . Q10H [facility] Rx#:[id number] Piperacillin-Tazobactam 3 62.5 .375 gm In Dextrose/Water 1 50ml.bag @ 12.5 mls/hr IVPB Q8H [facility] Rx#: [id number] levETIRAcetam IV 750 mg 100 100 In Sodium Chloride 0.9% 100 ml @ 400 mls/hr IVPB Q12HR [facility] Rx#:[id number] Intake, IV Titration 50 Amount Piperacillin-Tazobactam 3 50 .375 gm In Dextrose/Water 1 50ml.bag @ 12.5 mls/hr IVPB Q8H [facility] Rx#: [id number] Tube Feeding 480 600 40 Other 1200 1200 Output: Urine 100 865 Other: Voiding Method Indwelling Catheter Indwelling Catheter # Bowel Movements 1 - Exam - Exam General appearance: cooperative, no acute distress, thin - EENT Eyes: anicteric sclerae, EOMI, PERRLA, dentition normal ENT: hard of hearing, NA/AT, normal oropharynx - Neck Neck: no lymphadenopathy, normal ROM, no other, no rigidity, no stridor, no thyromegaly - Respiratory Respiratory: bilateral: CTA, diminished, negative: dullness, rales, rhonchi, wheezing, prolonged expiration - Cardiovascular Rhythm: regular Heart sounds: normal: S1, S2 - Gastrointestinal General gastrointestinal: normal bowel sounds, soft - Integumentary Stage I decubitus ulcer sacrum Integumentary: decreased turgor, normal - Neurologic Neurologic: CNII-XII intact - Musculoskeletal Musculoskeletal: generalized weakness, strength equal bilaterally - Psychiatric Psychiatric: Patient is intubated on mechanical ventilation, no appropriate affect, no intact judgment & insight - Labs CBC & Chem 7: 08/20/17 03:58 08/20/17 03:58 Labs: Abnormal Lab Results - Last 24 Hours (Table) 08/19/17 08/19/17 08/19/17 Range/Units 12:11 17:06 18:46 WBC (3.8-10.6) k/uL RBC (4.30-5.90) m/uL Hgb (13.0-17.5) gm/dL Hct (39.0-53.0) % MCHC (31.0-37.0) g/dL Neutrophils # (1.3-7.7) k/uL Sodium 146 H (137-145) mmol/L Chloride 111 H (98-107) mmol/L Carbon Dioxide 21 L (22-30) mmol/L BUN 61 H (9-20) mg/dL Creatinine 3.10 H (0.66-1.25) mg/dL Glucose 165 H (74-99) mg/dL POC Glucose (mg/dL) 188 H 164 H (75-99) mg/dL Calcium 8.0 L (8.4-10.2) mg/dL Phosphorus (2.5-4.5) mg/dL ALT 18 L (21-72) U/L Total Protein 5.1 L (6.3-8.2) g/dL Albumin 2.1 L (3.5-5.0) g/dL 08/19/17 08/20/17 08/20/17 Range/Units 20:14 00:12 03:58 WBC 14.1 H (3.8-10.6) k/uL RBC 4.22 L (4.30-5.90) m/uL Hgb 11.2 L (13.0-17.5) gm/dL Hct 36.9 L (39.0-53.0) % MCHC 30.5 L (31.0-37.0) g/dL Neutrophils # 11.4 H (1.3-7.7) k/uL Sodium (137-145) mmol/L Chloride (98-107) mmol/L Carbon Dioxide (22-30) mmol/L BUN (9-20) mg/dL Creatinine (0.66-1.25) mg/dL Glucose (74-99) mg/dL POC Glucose (mg/dL) 171 H 133 H (75-99) mg/dL Calcium (8.4-10.2) mg/dL Phosphorus (2.5-4.5) mg/dL ALT (21-72) U/L Total Protein (6.3-8.2) g/dL Albumin (3.5-5.0) g/dL 08/20/17 08/20/17 Range/Units 03:58 06:04 WBC (3.8-10.6) k/uL RBC (4.30-5.90) m/uL Hgb (13.0-17.5) gm/dL Hct (39.0-53.0) % MCHC (31.0-37.0) g/dL Neutrophils # (1.3-7.7) k/uL Sodium (137-145) mmol/L Chloride 108 H (98-107) mmol/L Carbon Dioxide (22-30) mmol/L BUN 59 H (9-20) mg/dL Creatinine 3.30 H (0.66-1.25) mg/dL Glucose 148 H (74-99) mg/dL POC Glucose (mg/dL) 165 H (75-99) mg/dL Calcium 7.8 L (8.4-10.2) mg/dL Phosphorus 5.3 H (2.5-4.5) mg/dL ALT (21-72) U/L Total Protein (6.3-8.2) g/dL Albumin (3.5-5.0) g/dL Microbiology - Last 24 Hours (Table) 08/17/17 19:20 CSF Gram Stain - Preliminary Cerebral Spinal Fluid CSF Culture - Preliminary Assessment and Plan Assessment: Assessment and Plan Plan: 1. Metabolic encephalopathy with sepsis of unclear source aspiration pneumonia and UTI and possible evolving stroke is another etiology. Continue Zosyn. [place] discontinued. Keppra and Protonix changed to IV. Status post LP. Consult with Dr. Presley and Dr. Louis. 2. Acute hypoxic respiratory failure requiring intubation and mechanical ventilation. Patient FiO2 is down to 45%, he is currently on propofol, and the plan is to x-ray the patient and her on today. 3. Elevated troponin, secondary to sepsis without evidence of acute coronary syndrome. 4. Acute kidney injury secondary to ATN secondary to sepsis and hemodynamic instability with chronic kidney disease stage III. Patient is followed by nephrology. 5. Arrhythmia history with prior Nonsustained ventricular tachycardia on 2015 H and was seen by cardiology echocardiogramJuly 2016 showed atrial fibrillation with small pericardial effusion noted ejection fraction 45-50% inferolateral hypokinesis with palpation of LA size over 40. Electrolyte management is optimized 6. History bilateral hydronephrosis mild, improved from last ultrasound history Phimosis with urinary retention resolved monitor for urinary retention continue tamsulosin 7. CAD post CABG. continue aspirin 81 mg orally once every day, 8. Diabetes mellitus type II: Has been on Lantus at 20 units at bedtime along with pre-meal however with the sugars being low, and Lantus on hold , NovoLog sliding scale, current sugars are low 9. Hypertensive cardiovascular disease. Clonidine patch increased, hydralazine 20 mg IV push every 6 hours as needed. 10. Hyperlipidemia: Currently off statin. 11. Chronic A. fib. Patient is no longer on Coumadin. This may be related to risk of falls. 12. Acute on chronic systolic and possible diastolic heart failure. Lasix ordered on a daily basis 12. Recurrent depression: Has been on Prozac 20 mg daily.Xanax at bedtime-- discontinued 13. Seizure history: Has been on Keppra 750 g twice a day with no new seizure activity. Keppra changed to IV. 14. BPH: Off Flomax. [place] catheter 15. Severe GERD: Will add Protonix 40 mg daily 16. Rhabdomyolysis, hold Lipitor 17. Sacral decubitus stage I secondary to prolonged immobilization , overlay mattress and frequent turning 18. Hypernatremia. Nephrology is following. 19. Severe protein calorie malnutrition due to lack of oral intake. Patient will have NG tube placed and tube feeding started. Dietitian consult requested. 20. Prognosis guarded Discharge plan: Subacute rehab with the patient is more active.
[2017-08-20 11:31] LABS: ABG Base Excess -3.4 mmol/L; ABG HCO3 23 mmol/L (21-25); ABG Oxygen Saturation 95.8 % (94-97); ABG PCO2 44 mmHg (35-45); ABG PH 7.32 (7.35-7.45); ABG PO2 79 mmHg (83-108); ABG TCO2 24 mmol/L (19-24)
--- NOTE | 2017-08-20 11:35 | P.PN ---
Subjective Progress Note Date: 08/20/17 Principal diagnosis: Mental status changes and sepsis Progress note dated 08/20/2017 71-year-old male with a history of acute hypoxemic respiratory failure requiring intubation and mechanical ventilation, secondary to sepsis likely from pneumonia. The patient was intubated on August 17. He remains on the ventilator to this date. Chest x-ray looks stable. He came in with mental status changes, sepsis and possible CVA. The patient's current vent settings are the volume assist control mode, rate of 16, tidal volume 450, FiO2 of 35% to be reduced to 25% and PEEP of 5. Arterial blood gases show a PaO2 of 140 a PaCO2 43 and a pH of 7.33. He is receiving a saline IV at KVO and tube feeds haven't a rate of 40 mL per hour with a goal of 40 mL an hour. Chest x-ray looks okay. The patient will have a spontaneous breathing trial today. It appears that his weaning parameters are reasonable on PSV of 5 and CPAP of 5. We'll make sure we do a cuff leak. He may benefit and tolerate extubation. Objective - Vital Signs Vital signs: Vital Signs Temp 98.6 F 08/20/17 08:00 Pulse 55 L 08/20/17 10:00 Resp 18 08/20/17 10:00 BP 136/64 08/20/17 10:00 Pulse Ox 100 08/20/17 10:00 Intake & Output 08/19/17 08/20/17 08/20/17 18:59 06:59 18:59 Intake Total 2030 1962.5 205.0 Output Total 100 865 60 Balance 1930 1097.5 145.0 Weight 74.2 kg 76.5 kg Intake: IV 300 162.5 125.0 Dextrose 5% in Water 1, 200 000 ml @ 100 mls/hr IV . Q10H [facility] Rx#:[id number] Piperacillin-Tazobactam 3 62.5 25.0 .375 gm In Dextrose/Water 1 50ml.bag @ 12.5 mls/hr IVPB Q8H [facility] Rx#: [id number] levETIRAcetam IV 750 mg 100 100 100 In Sodium Chloride 0.9% 100 ml @ 400 mls/hr IVPB Q12HR [facility] Rx#:[id number] Intake, IV Titration 50 Amount Piperacillin-Tazobactam 3 50 .375 gm In Dextrose/Water 1 50ml.bag @ 12.5 mls/hr IVPB Q8H [facility] Rx#: [id number] Tube Feeding 480 600 80 Other 1200 1200 Output: Urine 100 865 60 Other: Voiding Method Indwelling Catheter Indwelling Catheter Indwelling Catheter # Bowel Movements 1 - Exam No acute distress, oral endotracheal tube and NG tube in place and noted. HEENT examination is grossly unremarkable. Neck supple. Full range of motion. No adenopathy thyromegaly or neck vein distention. Cardiovascular examination reveals regular rhythm rate. S1-S2 normal. No S3 or S4. No discernible murmur noted. Lungs reveal coarse bilateral rhonchi. Breath sounds are equal bilaterally. No crackles. No wheezes. Abdomen soft bowel sounds are heard. No masses or tenderness. Extremities are intact. No cyanosis clubbing or edema. Skin is without rash or lesion. Neurologic examination could not be adequately performed. - Labs CBC & Chem 7: 08/20/17 03:58 08/20/17 03:58 Labs: Abnormal Lab Results - Last 24 Hours (Table) 08/19/17 08/19/17 08/19/17 Range/Units 12:11 17:06 18:46 WBC (3.8-10.6) k/uL RBC (4.30-5.90) m/uL Hgb (13.0-17.5) gm/dL Hct (39.0-53.0) % MCHC (31.0-37.0) g/dL Neutrophils # (1.3-7.7) k/uL ABG pH (7.35-7.45) ABG pO2 (83-108) mmHg ABG O2 Saturation (94-97) % Sodium 146 H (137-145) mmol/L Chloride 111 H (98-107) mmol/L Carbon Dioxide 21 L (22-30) mmol/L BUN 61 H (9-20) mg/dL Creatinine 3.10 H (0.66-1.25) mg/dL Glucose 165 H (74-99) mg/dL POC Glucose (mg/dL) 188 H 164 H (75-99) mg/dL Calcium 8.0 L (8.4-10.2) mg/dL Phosphorus (2.5-4.5) mg/dL ALT 18 L (21-72) U/L Total Protein 5.1 L (6.3-8.2) g/dL Albumin 2.1 L (3.5-5.0) g/dL 08/19/17 08/20/17 08/20/17 Range/Units 20:14 00:12 03:58 WBC 14.1 H (3.8-10.6) k/uL RBC 4.22 L (4.30-5.90) m/uL Hgb 11.2 L (13.0-17.5) gm/dL Hct 36.9 L (39.0-53.0) % MCHC 30.5 L (31.0-37.0) g/dL Neutrophils # 11.4 H (1.3-7.7) k/uL ABG pH (7.35-7.45) ABG pO2 (83-108) mmHg ABG O2 Saturation (94-97) % Sodium (137-145) mmol/L Chloride (98-107) mmol/L Carbon Dioxide (22-30) mmol/L BUN (9-20) mg/dL Creatinine (0.66-1.25) mg/dL Glucose (74-99) mg/dL POC Glucose (mg/dL) 171 H 133 H (75-99) mg/dL Calcium (8.4-10.2) mg/dL Phosphorus (2.5-4.5) mg/dL ALT (21-72) U/L Total Protein (6.3-8.2) g/dL Albumin (3.5-5.0) g/dL 08/20/17 08/20/17 08/20/17 Range/Units 03:58 06:04 08:17 WBC (3.8-10.6) k/uL RBC (4.30-5.90) m/uL Hgb (13.0-17.5) gm/dL Hct (39.0-53.0) % MCHC (31.0-37.0) g/dL Neutrophils # (1.3-7.7) k/uL ABG pH 7.33 L (7.35-7.45) ABG pO2 140 H (83-108) mmHg ABG O2 Saturation 98.7 H (94-97) % Sodium (137-145) mmol/L Chloride 108 H (98-107) mmol/L Carbon Dioxide (22-30) mmol/L BUN 59 H (9-20) mg/dL Creatinine 3.30 H (0.66-1.25) mg/dL Glucose 148 H (74-99) mg/dL POC Glucose (mg/dL) 165 H (75-99) mg/dL Calcium 7.8 L (8.4-10.2) mg/dL Phosphorus 5.3 H (2.5-4.5) mg/dL ALT (21-72) U/L Total Protein (6.3-8.2) g/dL Albumin (3.5-5.0) g/dL Microbiology - Last 24 Hours (Table) 08/18/17 04:15 Gram Stain - Final Sputum Sputum Culture - Final 08/17/17 19:20 CSF Gram Stain - Preliminary Cerebral Spinal Fluid CSF Culture - Preliminary Assessment and Plan Assessment: Assessment Acute hypoxemic respiratory failure secondary to sepsis and pneumonia. Acute urinary tract infection with sepsis Acute on chronic nonoliguric renal failure secondary to ATN Stage III chronic kidney disease Acute hypernatremia Acute metabolic acidosis secondary to sepsis and renal failure. Protein calorie malnutrition History of chronic atrial fibrillation History of CAD with previous bypass grafting Diastolic heart failure. Metabolic encephalopathy secondary to sepsis History of seizure disorder Plan: Progress note dated 08/20/2017 The patient is having a spontaneous breathing trial currently at a pressure support of 5 and CPAP of 5. Arterial blood gases on those settings show a PaO2 of 79 a PaCO2 of 44 and a pH of 7.323. The patient's does have a cuff leak. His tidal volume was 433, vital capacity was 565, rapid shallow breathing index was 45 minute volume was 8.8 L/m and therefore is only -11. We will go ahead and hold his tube feeds and see if we can get the patient extubated. He seems stable otherwise. We'll continue with current recommendations and medications. Prognosis is guarded. We'll continue to follow closely. Microbiology is thus far all negative. Lab data suggests a white count of 14.1 hemoglobin 11.2 platelet count normal, sodium potassium normal chloride is 108 CO2 24 and a BUN and creatinine 59 and 3.30 respectively. Medications are reviewed. Time with Patient: Greater than 30
[2017-08-20 11:51] LABS: Glucose,Whole Blood 138 mg/dL (75-99)
--- NOTE | 2017-08-20 15:51 | PN ---
PROGRESS NOTE DATE OF SERVICE: 08/20/2017. REASON FOR FOLLOWUP: Urinary tract infection and possible aspiration pneumonia. INTERVAL HISTORY: The patient is afebrile. The patient has been extubated. He has been breathing comfortably. Seemed to be slightly weak and lethargic and unable to provide any history. When questioned specifically no nausea, vomiting or any diarrhea. Has been tolerating his PEG tube feeds through the NG. EXAMINATION: Blood pressure 154/72, pulse of 60, temperature 98. He is 98% on 2 L nasal cannula. General description is an elderly male lying in bed in no distress. Respiratory system: Unlabored breathing. Some coarse breath sounds in the bases bilaterally. No wheeze. Heart S1, S2. Regular rate and rhythm. Abdomen soft, no tenderness. LABS: Hemoglobin 11.8, white count 14.1. Sputum cultures currently pending. DIAGNOSTIC IMPRESSION AND PLAN: Patient with multifactorial with a component of catheter associated urinary tract infection, for which has been changed out with a possibility of aspiration pneumonitis. Plan at this time is to keep the patient on Zosyn and Diflucan. Waiting for his condition to stabilize. Continue supportive care. MMODL / IJN: [id number] /
[2017-08-20] MEDS: ENOXAPARIN 30 MG/0.3 ML SYRINGE SQ SCH (17:12)
[2017-08-20 17:20] LABS: Glucose,Whole Blood 165 mg/dL (75-99)
--- NOTE | 2017-08-20 19:51 | P.PN ---
Subjective Progress Note Date: 08/20/17 The patient is a 71-year-old man admitted to the hospital with sepsis, renal failure, and multiple medical problems who underwent intubation on 08/18/2017 after unresponsiveness and respiratory failure. He is doing better today. He has been extubated this morning. He is opening his eyes to command. He is able to say his name and he is oriented to place. He also follows commands and denies any pain. Patient has a history of seizure disorder but has not had any seizures during his hospital stay. He has had an EEG which showed only some slowing. He is on Keppra. Objective - Vital Signs Vital signs: Vital Signs Temp 98.4 F 08/20/17 16:00 Pulse 48 L 08/20/17 19:40 Resp 22 08/20/17 19:00 BP 143/66 08/20/17 19:00 Pulse Ox 100 08/20/17 19:40 Intake & Output 08/20/17 08/20/17 08/21/17 06:59 18:59 06:59 Intake Total 1962.5 935.0 Output Total 865 240 85 Balance 1097.5 695.0 -85 Weight 76.5 kg Intake: IV 162.5 175.0 Piperacillin-Tazobactam 3 62.5 75.0 .375 gm In Dextrose/Water 1 50ml.bag @ 12.5 mls/hr IVPB Q8H [facility] Rx#: [id number] levETIRAcetam IV 750 mg 100 100 In Sodium Chloride 0.9% 100 ml @ 400 mls/hr IVPB Q12HR [facility] Rx#:[id number] Tube Feeding 600 360 Other 1200 400 Output: Urine 865 240 85 Other: Voiding Method Indwelling Catheter Indwelling Catheter # Bowel Movements 1 - Constitutional General appearance: Present: mild distress - EENT Eyes: Present: PERRLA ENT: Present: hearing grossly normal - Neurologic Neurologic Comment(s): Neurologic examination: Mental status: He was able to open his eyes to verbal stimulus. He was able to speak with a low pitched voice. He was able to give his name and he was oriented to place. He was able to follow commands. There was no a aphasia Cranial nerve examination pupils were 2 mm and equal there was no ptosis there was no facial asymmetry next Motor examination he was able to wiggle his toes and he had good hand energy efficiency engineer bilaterally next Sensory examination intact to light touch - Labs CBC & Chem 7: 08/20/17 03:58 08/20/17 16:20 Labs: Abnormal Lab Results - Last 24 Hours (Table) 08/19/17 08/20/17 08/20/17 Range/Units 20:14 00:12 03:58 WBC 14.1 H (3.8-10.6) k/uL RBC 4.22 L (4.30-5.90) m/uL Hgb 11.2 L (13.0-17.5) gm/dL Hct 36.9 L (39.0-53.0) % MCHC 30.5 L (31.0-37.0) g/dL Neutrophils # 11.4 H (1.3-7.7) k/uL ABG pH (7.35-7.45) ABG pO2 (83-108) mmHg ABG O2 Saturation (94-97) % Chloride (98-107) mmol/L BUN (9-20) mg/dL Creatinine (0.66-1.25) mg/dL Glucose (74-99) mg/dL POC Glucose (mg/dL) 171 H 133 H (75-99) mg/dL Calcium (8.4-10.2) mg/dL Phosphorus (2.5-4.5) mg/dL 08/20/17 08/20/17 08/20/17 Range/Units 03:58 06:04 08:17 WBC (3.8-10.6) k/uL RBC (4.30-5.90) m/uL Hgb (13.0-17.5) gm/dL Hct (39.0-53.0) % MCHC (31.0-37.0) g/dL Neutrophils # (1.3-7.7) k/uL ABG pH 7.33 L (7.35-7.45) ABG pO2 140 H (83-108) mmHg ABG O2 Saturation 98.7 H (94-97) % Chloride 108 H (98-107) mmol/L BUN 59 H (9-20) mg/dL Creatinine 3.30 H (0.66-1.25) mg/dL Glucose 148 H (74-99) mg/dL POC Glucose (mg/dL) 165 H (75-99) mg/dL Calcium 7.8 L (8.4-10.2) mg/dL Phosphorus 5.3 H (2.5-4.5) mg/dL 08/20/17 08/20/17 08/20/17 Range/Units 11:28 11:49 17:18 WBC (3.8-10.6) k/uL RBC (4.30-5.90) m/uL Hgb (13.0-17.5) gm/dL Hct (39.0-53.0) % MCHC (31.0-37.0) g/dL Neutrophils # (1.3-7.7) k/uL ABG pH 7.32 L (7.35-7.45) ABG pO2 79 L (83-108) mmHg ABG O2 Saturation (94-97) % Chloride (98-107) mmol/L BUN (9-20) mg/dL Creatinine (0.66-1.25) mg/dL Glucose (74-99) mg/dL POC Glucose (mg/dL) 138 H 165 H (75-99) mg/dL Calcium (8.4-10.2) mg/dL Phosphorus (2.5-4.5) mg/dL Microbiology - Last 24 Hours (Table) 08/17/17 19:20 CSF Gram Stain - Preliminary Cerebral Spinal Fluid CSF Culture - Preliminary 08/18/17 04:15 Gram Stain - Final Sputum Sputum Culture - Final Assessment and Plan (1) Metabolic encephalopathy Current Visit: Yes Status: Acute SNOMED Code(s): 53536536 (2) Acute kidney injury superimposed on chronic kidney disease Current Visit: Yes Status: Acute SNOMED Code(s): 23953313 (3) History of seizures Current Visit: Yes Status: Chronic SNOMED Code(s): 169216297 (4) Coronary artery disease Current Visit: No Status: Chronic Code(s): I25.10 - ATHSCL HEART DISEASE OF [place] CORONARY ARTERY W/O ANG PCTRS SNOMED Code(s): 55001211 (5) Respiratory failure Current Visit: No Status: Acute SNOMED Code(s): 192923974 Plan: The patient is a 71-year-old man with history of multiple medical problems admitted with sepsis, acute kidney injury, and recently intubated with acute hypoxic respiratory failure. He has been extubated today. He appears tired but able to speak and follow commands. Prognosis remains guarded
[2017-08-20] MEDS: SODIUM CHLORIDE 0.45% 1,000 ML IV SCH (20:41)
[2017-08-20 23:50] LABS: Glucose,Whole Blood 89 mg/dL (75-99)
[2017-08-21] MEDS: INSULIN ASPART 100 UNIT/ML 1 ML 10 ML VIAL SQ SCH ×4 (00:20→20:49)
[2017-08-21 04:50] LABS: Basophils % (A) 0 %; Eosinophils # (A) 0.4 k/uL (0-0.7); Eosinophils % (A) 3 %; HCT 32.8 % (39.0-53.0); HGB 10.3 gm/dL (13.0-17.5); Lymphocytes # (A) 1.2 k/uL (1.0-4.8); Lymphocytes % (A) 10 %; MCH 27.5 pg (25.0-35.0); MCHC 31.5 g/dL (31.0-37.0); MCV 87.4 fL (80.0-100.0); Mean Platelet Volume 8.5; Monocytes # (A) 1.2 k/uL (0-1.0); Monocytes % (A) 10 %; Neutrophils # (A) 9.3 k/uL (1.3-7.7); Neutrophils % (A) 75 %; Platelet Count 174 k/uL (150-450); RBC 3.75 m/uL (4.30-5.90); RDW 14.9 % (11.5-15.5); WBC 12.4 k/uL (3.8-10.6)
[2017-08-21 05:00] LABS: Calcium 7.6 mg/dL (8.4-10.2); Magnesium 2.1 mg/dL (1.6-2.3); Phosphorus 5.4 mg/dL (2.5-4.5); Potassium 4.1 mmol/L (3.5-5.1)
[2017-08-21 06:09] LABS: Glucose,Whole Blood 68 mg/dL (75-99)
[2017-08-21 06:14] LABS: Glucose,Whole Blood 78 mg/dL (75-99)
[2017-08-21] MEDS: PIPERACILLIN-TAZOBACTAM 3.375 GM in DEXTROSE/WATER 1 50ML.BAG IVPB SCH ×3 (06:17→22:14)
--- NOTE | 2017-08-21 06:51 | XR ---
EXAMINATION TYPE: XR chest 1V DATE OF EXAM: 08/21/2017 HISTORY: shortness of breath. REFERENCE: Previous study dated 08/20/2017. FINDINGS: The heart is enlarged. There is bibasilar airspace disease. I suspect small, bilateral effu sions. IMPRESSION: 1. CARDIOMEGALY. 2. BIBASILAR AIRSPACE DISEASE, WORSE IN THE LEFT THAN THE RIGHT. 3. SMALL, BILATERAL EFFUSIONS.
[2017-08-21] MEDS: IPRATROPIUM-ALBUTEROL 3 ML NEB INHALATION SCH ×4 (07:06→19:20)
[2017-08-21] MEDS: BUDESONIDE 0.5 MG/2 ML NEBU INHALATION SCH (07:06)
[2017-08-21] MEDS: PANTOPRAZOLE 40 MG/10 ML VIAL IVP SCH (08:52)
[2017-08-21] MEDS: hydrALAZINE HCL 50 MG TAB PO SCH ×3 (08:52→21:01)
[2017-08-21] MEDS: FLUCONAZOLE ORAL SUSP 1,400 MG/35 ML BOTTLE NG-TUBE SCH (08:52)
[2017-08-21] MEDS: INSULIN DETEMIR 100 UNIT/ML 10 ML VIAL SQ SCH (08:52)
[2017-08-21] MEDS: SODIUM CHLORIDE 0.45% 1,000 ML IV SCH (08:53)
[2017-08-21] MEDS: levETIRAcetam IV 750 MG in SODIUM CHLORIDE 0.9% 100 ML IVPB SCH ×2 (08:53→20:49)
--- NOTE | 2017-08-21 09:16 | P.PN ---
Subjective Progress Note Date: 08/21/17 Principal diagnosis: Mental status changes and sepsis Progress note dated 08/20/2017 71-year-old male with a history of acute hypoxemic respiratory failure requiring intubation and mechanical ventilation, secondary to sepsis likely from pneumonia. The patient was intubated on August 17. He remains on the ventilator to this date. Chest x-ray looks stable. He came in with mental status changes, sepsis and possible CVA. The patient's current vent settings are the volume assist control mode, rate of 16, tidal volume 450, FiO2 of 35% to be reduced to 25% and PEEP of 5. Arterial blood gases show a PaO2 of 140 a PaCO2 43 and a pH of 7.33. He is receiving a saline IV at KVO and tube feeds haven't a rate of 40 mL per hour with a goal of 40 mL an hour. Chest x-ray looks okay. The patient will have a spontaneous breathing trial today. It appears that his weaning parameters are reasonable on PSV of 5 and CPAP of 5. We'll make sure we do a cuff leak. He may benefit and tolerate extubation. Progress note dated 12/21/2017 71-year-old male who was actually extubated from mechanical ventilation yesterday on August 20. He has a history of acute hypoxemic respiratory failure which required intubation and mechanical ventilation, likely secondary to sepsis and pneumonia. The patient was intubated on the and extubated on the . He is doing relatively well today. Chest x-ray stable. He is currently on a liter or 2 of oxygen. His IV is half-normal saline at 75 mL an hour. The patient otherwise is doing relatively well. He did extremely well with his spontaneous breathing trial in his weaning parameters are excellent. The patient's feeling well today. No major complaints. Seems more awake and alert. Seem stronger as well. Patient has a history of acute urinary tract infection with sepsis hypoxemic respiratory failure acute on chronic nonoliguric renal failure secondary to ATN stage III chronic kidney disease hypernatremia metabolic acidosis protein/calorie malnutrition chronic atrial fibrillation CAD with previous bypass grafting diastolic heart failure and metabolic encephalopathy. Objective - Vital Signs Vital signs: Vital Signs Temp 98.2 F 08/21/17 08:00 Pulse 65 08/21/17 09:00 Resp 11 L 08/21/17 09:00 BP 165/71 08/21/17 09:00 Pulse Ox 97 08/21/17 09:00 Intake & Output 08/20/17 08/21/17 08/21/17 18:59 06:59 18:59 Intake Total 935.0 825 150 Output Total 240 330 45 Balance 695.0 495 105 Weight 77.4 kg Intake: IV 175.0 825 150 Piperacillin-Tazobactam 3 75.0 .375 gm In Dextrose/Water 1 50ml.bag @ 12.5 mls/hr IVPB Q8H [facility] Rx#: [id number] Sodium Chloride 0.45% 1, 825 150 000 ml @ 75 mls/hr IV . [id number] [facility] Rx#:[id number] levETIRAcetam IV 750 mg 100 In Sodium Chloride 0.9% 100 ml @ 400 mls/hr IVPB Q12HR [facility] Rx#:[id number] Tube Feeding 360 Other 400 Output: Urine 240 330 45 Other: Voiding Method Indwelling Catheter Indwelling Catheter - Exam No acute distress. Oriented 3. No nasal O2 at this time. HEENT examination is grossly unremarkable. Mucous membranes are moist. No oral lesions. Neck supple. Full range of motion. No adenopathy thyromegaly or neck vein distention. Cardiovascular examination reveals regular rhythm rate. S1-S2 normal. No S3 or S4. No discernible murmur noted. Lungs reveal coarse bilateral rhonchi. Breath sounds are equal bilaterally. No crackles. No wheezes. Abdomen soft bowel sounds are heard. No masses or tenderness. Extremities are intact. No cyanosis clubbing or edema. Skin is without rash or lesion. Neurologic examination is nonfocal. - Labs CBC & Chem 7: 08/21/17 04:32 08/21/17 04:32 Labs: Abnormal Lab Results - Last 24 Hours (Table) 08/20/17 08/20/17 08/20/17 Range/Units 11:28 11:49 17:18 WBC (3.8-10.6) k/uL RBC (4.30-5.90) m/uL Hgb (13.0-17.5) gm/dL Hct (39.0-53.0) % Neutrophils # (1.3-7.7) k/uL Monocytes # (0-1.0) k/uL ABG pH 7.32 L (7.35-7.45) ABG pO2 79 L (83-108) mmHg Chloride (98-107) mmol/L BUN (9-20) mg/dL Creatinine (0.66-1.25) mg/dL POC Glucose (mg/dL) 138 H 165 H (75-99) mg/dL Calcium (8.4-10.2) mg/dL Phosphorus (2.5-4.5) mg/dL 08/21/17 08/21/17 08/21/17 Range/Units 04:32 04:32 06:07 WBC 12.4 H (3.8-10.6) k/uL RBC 3.75 L (4.30-5.90) m/uL Hgb 10.3 L (13.0-17.5) gm/dL Hct 32.8 L (39.0-53.0) % Neutrophils # 9.3 H (1.3-7.7) k/uL Monocytes # 1.2 H (0-1.0) k/uL ABG pH (7.35-7.45) ABG pO2 (83-108) mmHg Chloride 110 H (98-107) mmol/L BUN 63 H (9-20) mg/dL Creatinine 3.25 H (0.66-1.25) mg/dL POC Glucose (mg/dL) 68 L (75-99) mg/dL Calcium 7.6 L (8.4-10.2) mg/dL Phosphorus 5.4 H (2.5-4.5) mg/dL Microbiology - Last 24 Hours (Table) 08/17/17 19:20 CSF Gram Stain - Preliminary Cerebral Spinal Fluid CSF Culture - Preliminary 08/18/17 04:15 Gram Stain - Final Sputum Sputum Culture - Final Assessment and Plan Assessment: Assessment Acute hypoxemic respiratory failure secondary to sepsis and pneumonia. Intubation with mechanical ventilation for acute hypoxemic respiratory failure, with extubation on August 20. Acute urinary tract infection with sepsis Acute on chronic nonoliguric renal failure secondary to ATN Stage III chronic kidney disease Acute hypernatremia Acute metabolic acidosis secondary to sepsis and renal failure. Protein calorie malnutrition History of chronic atrial fibrillation History of CAD with previous bypass grafting Diastolic heart failure. Metabolic encephalopathy secondary to sepsis History of seizure disorder Plan: Progress note dated 08/20/2017 The patient is having a spontaneous breathing trial currently at a pressure support of 5 and CPAP of 5. Arterial blood gases on those settings show a PaO2 of 79 a PaCO2 of 44 and a pH of 7.323. The patient's does have a cuff leak. His tidal volume was 433, vital capacity was 565, rapid shallow breathing index was 45 minute volume was 8.8 L/m and therefore is only -11. We will go ahead and hold his tube feeds and see if we can get the patient extubated. He seems stable otherwise. We'll continue with current recommendations and medications. Prognosis is guarded. We'll continue to follow closely. Microbiology is thus far all negative. Lab data suggests a white count of 14.1 hemoglobin 11.2 platelet count normal, sodium potassium normal chloride is 108 CO2 24 and a BUN and creatinine 59 and 3.30 respectively. Medications are reviewed. Progress note dated 08/21/2017 The patient is doing much better. He was extubated on August 20. His weaning parameters and blood gases were excellent. He did have a good cuff leak. The patient's only receiving a couple liters of nasal O2 at this time. His IV is half normal saline at 75 mL an hour. Labs x-rays a medications are reviewed. Microbiology was all negative yesterday bubble but will be reviewed today. Prognosis is guarded. Probably should keep the patient in the ICU 1 more day. Critical care time 36 minutes Time with Patient: Greater than 30
--- NOTE | 2017-08-21 09:23 | P.PN ---
Subjective Progress Note Date: 08/21/17 Principal diagnosis: This is a 71-year-old male seen in consultation because of acute kidney injury and chronic kidney disease. The cause of the acute kidney injury is prerenal, he does have Vania UTI and possible pneumonia. He is known with hypertension and hyperlipidemia and diabetes COPD CHF alcoholism. Has had coronary artery bypass graft in 2014 He was admitted with syncope, found by a neighbor in the bed at his home.. Workup has shown normal CT of the brain. He is also known with seizure disorders but his EEG is unremarkable for any status epilepticus. Drug screen is not available alcohol level not available. This morning he has been extubated currently on nasal cannula awake and alert but has generalized weakness. He seems to be coherent and oriented 3. He was maintained on D5 W after being extubated because of the hypernatremia. He had hypernatremia with a peak sodium of 150. His urine output though is down although his creatinine stable at 3.3-3.2. Hemodynamically is very stable and is afebrile. Objective - Vital Signs Vital signs: Vital Signs Temp 98.2 F 08/21/17 08:00 Pulse 65 08/21/17 09:00 Resp 11 L 08/21/17 09:00 BP 165/71 08/21/17 09:00 Pulse Ox 97 08/21/17 09:00 Intake & Output 08/20/17 08/21/17 08/21/17 18:59 06:59 18:59 Intake Total 935.0 825 150 Output Total 240 330 45 Balance 695.0 495 105 Weight 77.4 kg Intake: IV 175.0 825 150 Piperacillin-Tazobactam 3 75.0 .375 gm In Dextrose/Water 1 50ml.bag @ 12.5 mls/hr IVPB Q8H [facility] Rx#: [id number] Sodium Chloride 0.45% 1, 825 150 000 ml @ 75 mls/hr IV . [id number] [facility] Rx#:[id number] levETIRAcetam IV 750 mg 100 In Sodium Chloride 0.9% 100 ml @ 400 mls/hr IVPB Q12HR [facility] Rx#:[id number] Tube Feeding 360 Other 400 Output: Urine 240 330 45 Other: Voiding Method Indwelling Catheter Indwelling Catheter Indwelling Catheter On examination awake alert oriented on nasal cannula. HEENT exam no JVP neck is supple no facial asymmetry Lungs are clear to auscultation with good air entry bilaterally Heart sounds are unremarkable no murmur rub gallop He is in normal sinus rhythm. Abdomen soft nontender no organomegaly status masses Extremity exam was trace edema with some moderate scrotal edema He has a Grullon catheter Neurologically awake alert and oriented to place percent and time. Has generalized weakness though. - Labs CBC & Chem 7: 08/21/17 04:32 08/21/17 04:32 Labs: Abnormal Lab Results - Last 24 Hours (Table) 08/20/17 08/20/17 08/20/17 Range/Units 11:28 11:49 17:18 WBC (3.8-10.6) k/uL RBC (4.30-5.90) m/uL Hgb (13.0-17.5) gm/dL Hct (39.0-53.0) % Neutrophils # (1.3-7.7) k/uL Monocytes # (0-1.0) k/uL ABG pH 7.32 L (7.35-7.45) ABG pO2 79 L (83-108) mmHg Chloride (98-107) mmol/L BUN (9-20) mg/dL Creatinine (0.66-1.25) mg/dL POC Glucose (mg/dL) 138 H 165 H (75-99) mg/dL Calcium (8.4-10.2) mg/dL Phosphorus (2.5-4.5) mg/dL 08/21/17 08/21/17 08/21/17 Range/Units 04:32 04:32 06:07 WBC 12.4 H (3.8-10.6) k/uL RBC 3.75 L (4.30-5.90) m/uL Hgb 10.3 L (13.0-17.5) gm/dL Hct 32.8 L (39.0-53.0) % Neutrophils # 9.3 H (1.3-7.7) k/uL Monocytes # 1.2 H (0-1.0) k/uL ABG pH (7.35-7.45) ABG pO2 (83-108) mmHg Chloride 110 H (98-107) mmol/L BUN 63 H (9-20) mg/dL Creatinine 3.25 H (0.66-1.25) mg/dL POC Glucose (mg/dL) 68 L (75-99) mg/dL Calcium 7.6 L (8.4-10.2) mg/dL Phosphorus 5.4 H (2.5-4.5) mg/dL Microbiology - Last 24 Hours (Table) 08/17/17 19:20 CSF Gram Stain - Preliminary Cerebral Spinal Fluid CSF Culture - Preliminary 08/18/17 04:15 Gram Stain - Final Sputum Sputum Culture - Final Assessment and Plan Assessment: Impression 1. Acute kidney injury with ATN, etiology is possible sepsis from pneumonia and urinary tract infection with obtundation, an element of diuretics and nakita inhibitors additionally. Creatinine worsening urine output down. Patient is in ATN currently and expected to recover now that he is hemodynamically stable. Creatinine currently stable at 3.2 and was 3.3, but urine output is decreasing. 2. Chronic kidney disease with diabetic nephropathy and proteinuria. Serologies negative so far 3. Hyponatremia secondary to decreased free water intake. Improved with water t on D5W. Sodium is 143 4. Extubated yesterday 08/20/2017. 5. Urinary tract infection. 6. History of coronary artery bypass graft. 7. History of seizure disorder on Keppra. 8. Acute changes in mental status with normal CT scans and metabolic workup was negative. Drug screen not performed on admission and alcohol level not available. Patient claims that he has not had anything to drink for years now Recommendation. 1. Will change his IV fluids to D5W. 2. Because of the scrotal edema with him 1 dose of Lasix 20 mg and see how he does. Further have discontinued the half-normal saline and that should help also. 3. Maintain current antihypertensive regimen her pressure is in the optimal range of 120-140. 3. Expect renal recovery in the next few days 5. Monitor sodium and electrolytes on a daily basis
[2017-08-21] MEDS ORDERED: DEXTROSE 5% IN WATER 1,000 ML IV ONE (09:25)
--- NOTE | 2017-08-21 09:40 | P.PN ---
Subjective Progress Note Date: 08/21/17 This is a 71-year-old male one of Dr. Lucas Gallo's patient with past medical history of hypertension, hyperlipidemia, diabetes, COPD, ,CHF , alcoholism and worsening heart failure who had open heart surgery with the CABG 2015 ended up having multiple complications and the multiple rehospitalization for worsening shortness of breath, A. fib and other complication. He was last hospitalized on 05/06/2016 at which time he was here for bradycardia and beta kojo was discontinued. He was sent in after neighbor found him in bed very weak, apparently patient has not gotten out of bed for 2 days. The neighbor checks on him on a daily basis, however on her return trip, he hasn't moved out of bed and has soiled himself stooled himself, and hasn't eaten for approximately 48 hours. Patient has difficulty in getting out of bed difficulty ambulating, his son who normally is sees constantly complaining at home, apparently admitted hospital hence no one was caring for the patient except for a visit from a neighbor. Patient has had cough, some wheezing, stiffness of the joint, difficulty in ambulating, patient hasn't had his medications for 2 days as well 08/12: Echocardiogram reveals EF of 50-55% with moderate concentric left ventricular hypertrophy, LA severely dilated at greater than 40, are appears enlarged, mild mitral calcification, mild mitral regurgitation, mild tricuspid regurgitation. Patient has been seen and evaluated by cardiology. Beta kojo was not started due to history of symptomatic bradycardia. Aspirin 81 mg was added. Patient no longer on Coumadin most likely due to risk of bleeding. White count is improved to 20.1. BUN is 63 and creatinine 2.8. TSH is 2.940. Patient is decreased mental status today. Staff was unable to feed him today. His blood pressure is stable. Weston will be changed to half a tablet which is 2.5 mg 3 times daily as needed. Keppra level will be checked in the morning as well as EEG ordered. Patient has been afebrile. PT has recommended subacute rehab. 08/13: Patient improved slightly yesterday evening where he was able to tolerate his dinner and he ate 80% of his dinner. Patient today is still lethargic but open his eyes to voice command following simple commands like moving his extremities up and down 08/14: Patient continued to have adequate urine output with a slight improvement in kidney function. Patient is improved from the mental status standpoint where he is more awake and following simple commands but looks lethargic overall. No major events reported by nursing staff 08/15: Patient was evaluated today, he underwent abdominal/bladder ultrasound, exam revealed limited exam but otherwise normal. Cardiology on consult, who discontinued his amlodipine do to hypotension. Blood pressure did improve to 132/67 today. Creatinine function slightly increased from previous, today 3.3, nephrology consult, recommends to continue with IV hydration, continue to hold lisinopril Lasix. Blood cultures show no growth to date. 08/16: Patient is still lethargic for nurse. Speech therapy has evaluated and made him nothing by mouth as he is too lethargic to eat. Keppra and Protonix changed to IV. Clonidine patch added for blood pressure control. He is continued on IV fluids at 75 mL per hour. Oral medications have been discontinued until patient is more alert. Creatinine is 3.25. Last bowel movement was 2 days ago. He has had good urine output. Repeat urinalysis shows signs of infection and patient is already on Zosyn. Consult with neurology added. 08/17: Patient has been seen by Dr. Presley with thought that metabolic encephalopathy secondary to sepsis and renal failure. CT of the brain revealed no acute intracranial hemorrhage or midline shift. No acute intracranial process. Multifocal lacunar injuries old-appearing old. Diffuse age-related triple atrophy and chronic small vessel ischemic change. Patient remains essentially unresponsive. Clonidine was increased last evening for high blood pressure. Due to elevated sodium IV fluids will be switched to D5W at 75 mL per hour. NG tube to be placed for tube feedings and consult with dietitian. 08/18: Chest x-ray revealed bilateral infiltrate and pleural effusions correlate for heart failure. NG tube in the left upper quadrant likely within the stomach. Patient was seen by Dr. Louis without the UTI could be underlying etiology for metabolic encephalopathy and possible pneumonitis. He requested anesthesia to perform LP and continue Zosyn. Diagnostic LP was done by Dr. Ulrich with return of clear spinal fluid. EEG did not reveal any seizure activity. There is been no seizure activity during this hospitalization. Dr. Presley did order MRI of the brain. A repeat chest x-ray this morning reveals congestive heart failure with small pleural effusions. Decreased pleural fluid on the left side. CT of the brain revealed possible evolving acute subacute infarct internal capsule on the right. Subsequent increase in size compared to prior study. Repeat chest x-ray shows new endotracheal tube. Similar interstitial prominence. Mild basilar opacities mostly on the left side. Mildly decreased. Dr. Mcbride as ordered 1 dose of IV Lasix 40 mg today. Last evening, patient' s blood pressure was elevated and [facility] was able to give labetalol. Patient said that a drop in his blood pressure. Patient was transferred to the intensive care unit last evening and consult with Dr. Robles was added. He was intubated at 4 this morning and remains intubated and on mechanical ventilation. Blood pressure has remained on the high side. Patient did not require vasopressors. White count went up to 20.2 sodium is 150, BUN 57 creatinine 3.1. Currently, sedation is off and patient is unresponsive. CODE STATUS was discussed with the patient's son yesterday afternoon/evening and he wanted the patient to remain full code. 08/19: Patient remains in intensive care unit on mechanical ventilation. He was given Lasix 40 mg once this morning. Chest x-ray this morning shows stable findings, persistent mild central vascular congestion and small bilateral pleural effusions with associated left basilar atelectasis and/or infiltrate. D5W was discontinued. Labetalol discontinued due to bradycardia and hydralazine added. According to Dr. Mcbride, family is okay with proceeding with dialysis. Sodium is 145, creatinine 3.19, BUN 60. Patient has been started on tube feedings and blood sugars are now running high for which Levemir will be started at 10 units along with scale NovoLog. Brother is at the bedside and updated. He does state that patient return to smoking recently. Patient has been afebrile. 08/20: Patient remains in the intensive care unit, he is currently off propofol for the past 24 hours, he is more awake, he is following directions, he is most likely would be extubated today. 08/21: Patient was extubated yesterday he is spending better he is extremely weak , he denies any chest pain, he is less short of breath, he appears to be with increased edema and upper extremities abdomen and scrotum, discussed with nephrology adding Lasix 60 mg IV 1. Objective - Vital Signs Vital signs: Vital Signs Temp 98.2 F 04/29/18 04:00 Pulse 57 L 08/21/17 07:08 Resp 16 08/21/17 07:00 BP 155/76 08/21/17 07:00 Pulse Ox 96 08/21/17 07:00 Intake & Output 08/20/17 08/21/17 08/21/17 18:59 06:59 18:59 Intake Total 935.0 825 Output Total 240 330 Balance 695.0 495 Weight 77.4 kg Intake: IV 175.0 825 Piperacillin-Tazobactam 3 75.0 .375 gm In Dextrose/Water 1 50ml.bag @ 12.5 mls/hr IVPB Q8H [facility] Rx#: [id number] Sodium Chloride 0.45% 1, 825 000 ml @ 75 mls/hr IV . [id number] [facility] Rx#:[id number] levETIRAcetam IV 750 mg 100 In Sodium Chloride 0.9% 100 ml @ 400 mls/hr IVPB Q12HR [facility] Rx#:[id number] Tube Feeding 360 Other 400 Output: Urine 240 330 Other: Voiding Method Indwelling Catheter Indwelling Catheter - Exam - Exam General appearance: cooperative, no acute distress, thin - EENT Eyes: anicteric sclerae, EOMI, PERRLA, dentition normal ENT: hard of hearing, NA/AT, normal oropharynx - Neck Neck: no lymphadenopathy, normal ROM, no other, no rigidity, no stridor, no thyromegaly - Respiratory Respiratory: bilateral: CTA, diminished, negative: dullness, rales, rhonchi, wheezing, prolonged expiration - Cardiovascular Rhythm: regular Heart sounds: normal: S1, S2 - Gastrointestinal General gastrointestinal: normal bowel sounds, soft - Integumentary Stage I decubitus ulcer sacrum Integumentary: decreased turgor, normal - Neurologic Neurologic: CNII-XII intact - Musculoskeletal Musculoskeletal: generalized weakness, strength equal bilaterally - Psychiatric Psychiatric: Patient is intubated on mechanical ventilation, no appropriate affect, no intact judgment & insight - Labs CBC & Chem 7: 08/21/17 04:32 08/21/17 04:32 Labs: Abnormal Lab Results - Last 24 Hours (Table) 08/20/17 08/20/17 08/20/17 Range/Units 08:17 11:28 11:49 WBC (3.8-10.6) k/uL RBC (4.30-5.90) m/uL Hgb (13.0-17.5) gm/dL Hct (39.0-53.0) % Neutrophils # (1.3-7.7) k/uL Monocytes # (0-1.0) k/uL ABG pH 7.33 L 7.32 L (7.35-7.45) ABG pO2 140 H 79 L (83-108) mmHg ABG O2 Saturation 98.7 H (94-97) % Chloride (98-107) mmol/L BUN (9-20) mg/dL Creatinine (0.66-1.25) mg/dL POC Glucose (mg/dL) 138 H (75-99) mg/dL Calcium (8.4-10.2) mg/dL Phosphorus (2.5-4.5) mg/dL 08/20/17 08/21/17 08/21/17 Range/Units 17:18 04:32 04:32 WBC 12.4 H (3.8-10.6) k/uL RBC 3.75 L (4.30-5.90) m/uL Hgb 10.3 L (13.0-17.5) gm/dL Hct 32.8 L (39.0-53.0) % Neutrophils # 9.3 H (1.3-7.7) k/uL Monocytes # 1.2 H (0-1.0) k/uL ABG pH (7.35-7.45) ABG pO2 (83-108) mmHg ABG O2 Saturation (94-97) % Chloride 110 H (98-107) mmol/L BUN 63 H (9-20) mg/dL Creatinine 3.25 H (0.66-1.25) mg/dL POC Glucose (mg/dL) 165 H (75-99) mg/dL Calcium 7.6 L (8.4-10.2) mg/dL Phosphorus 5.4 H (2.5-4.5) mg/dL 08/21/17 Range/Units 06:07 WBC (3.8-10.6) k/uL RBC (4.30-5.90) m/uL Hgb (13.0-17.5) gm/dL Hct (39.0-53.0) % Neutrophils # (1.3-7.7) k/uL Monocytes # (0-1.0) k/uL ABG pH (7.35-7.45) ABG pO2 (83-108) mmHg ABG O2 Saturation (94-97) % Chloride (98-107) mmol/L BUN (9-20) mg/dL Creatinine (0.66-1.25) mg/dL POC Glucose (mg/dL) 68 L (75-99) mg/dL Calcium (8.4-10.2) mg/dL Phosphorus (2.5-4.5) mg/dL Microbiology - Last 24 Hours (Table) 08/17/17 19:20 CSF Gram Stain - Preliminary Cerebral Spinal Fluid CSF Culture - Preliminary 08/18/17 04:15 Gram Stain - Final Sputum Sputum Culture - Final Assessment and Plan Assessment: Assessment and Plan Plan: 1. Metabolic encephalopathy with sepsis of unclear source aspiration pneumonia and UTI and possible evolving stroke is another etiology. Continue Zosyn. Weston discontinued. Keppra and Protonix changed to IV. Status post LP. Consult with Dr. Presley and Dr. Louis. 2. Acute hypoxic respiratory failure requiring intubation and mechanical ventilation that is successfully extubated. Continue with aggressive pulmonary toileting, monitor the patient very closely, continue status parameter, monitor chest x-ray. 3. Elevated troponin, secondary to sepsis without evidence of acute coronary syndrome. 4. Acute kidney injury secondary to ATN secondary to sepsis and hemodynamic instability with chronic kidney disease stage III. Patient is followed by nephrology. 5. Arrhythmia history with prior Nonsustained ventricular tachycardia on 2015 H and was seen by cardiology echocardiogramJuly 2016 showed atrial fibrillation with small pericardial effusion noted ejection fraction 45-50% inferolateral hypokinesis with palpation of LA size over 40. Electrolyte management is optimized 6. History bilateral hydronephrosis mild, improved from last ultrasound history Phimosis with urinary retention resolved monitor for urinary retention continue tamsulosin 7. CAD post CABG. continue aspirin 81 mg orally once every day, 8. Diabetes mellitus type II: Has been on Lantus at 20 units at bedtime along with pre-meal however with the sugars being low, and Lantus on hold , NovoLog sliding scale, current sugars are low 9. Hypertensive cardiovascular disease. Clonidine patch increased, hydralazine 20 mg IV push every 6 hours as needed. 10. Hyperlipidemia: Currently off statin. 11. Chronic A. fib. Patient is no longer on Coumadin. This may be related to risk of falls. 12. Acute on chronic systolic and possible diastolic heart failure. Lasix ordered on a daily basis 12. Recurrent depression: Has been on Prozac 20 mg daily.Xanax at bedtime-- discontinued 13. Seizure history: Has been on Keppra 750 g twice a day with no new seizure activity. Keppra changed to IV. 14. BPH: Off Flomax. Grullon catheter 15. Severe GERD: Will add Protonix 40 mg daily 16. Rhabdomyolysis, hold Lipitor 17. Sacral decubitus stage I secondary to prolonged immobilization , overlay mattress and frequent turning 18. Hypernatremia. Nephrology is following. 19. Severe protein calorie malnutrition due to lack of oral intake. Patient will have NG tube placed and tube feeding started. Dietitian consult requested. 20. Prognosis guarded Discharge plan: Subacute rehab with the patient is more active.
[2017-08-21] MEDS: FUROSEMIDE 10 MG/ML 2 ML VIAL IV SCH (09:59)
[2017-08-21 12:17] LABS: Glucose,Whole Blood 118 mg/dL (75-99)
--- NOTE | 2017-08-21 15:34 | P.PN ---
Subjective Progress Note Date: 08/21/17 The patient is a 71-year-old man admitted to the hospital with unresponsiveness sepsis renal failure multiple medical problems. He went into respiratory failure on 08/18/2017 and was intubated and admitted to the ICU. He was extubated yesterday. He is more alert and neurologically mental status is improved. He is awake he is oriented to person and place he is able to converse more than one sentence and he is able to focus. He follows commands appropriately no evidence of delirium Objective - Vital Signs Vital signs: Vital Signs Temp 98.2 F 08/21/17 12:00 Pulse 57 L 08/21/17 15:25 Resp 17 08/21/17 13:30 BP 139/73 08/21/17 13:30 Pulse Ox 93 L 08/21/17 13:30 Intake & Output 08/20/17 08/21/17 08/21/17 18:59 06:59 18:59 Intake Total 935.0 825 525 Output Total 240 330 425 Balance 695.0 495 100 Weight 77.4 kg Intake: IV 175.0 825 525 Dextrose 5% in Water 1, 375 000 ml @ 75 mls/hr IV . [id number] [facility] Rx#:[id number] Piperacillin-Tazobactam 3 75.0 .375 gm In Dextrose/Water 1 50ml.bag @ 12.5 mls/hr IVPB Q8H [facility] Rx#: [id number] Sodium Chloride 0.45% 1, 825 150 000 ml @ 75 mls/hr IV . [id number] [facility] Rx#:[id number] levETIRAcetam IV 750 mg 100 In Sodium Chloride 0.9% 100 ml @ 400 mls/hr IVPB Q12HR [facility] Rx#:[id number] Tube Feeding 360 Other 400 Output: Urine 240 330 425 Other: Voiding Method Indwelling Catheter Indwelling Catheter Indwelling Catheter - Constitutional General appearance: Present: average body habitus - EENT Eyes: Present: PERRLA ENT: Present: hearing grossly normal - Respiratory Respiratory: bilateral: CTA - Cardiovascular Rhythm: regular - Neurologic Neurologic Comment(s): Neurologic examination: Mental status: He was awake he was oriented 2. There was no a aphasia or dysarthria. He was able to follow simple commands. Next Cranial nerve examination: Pupils were 2 mm and equal there was no ptosis no nystagmus no facial asymmetry next Motor examination he had good laboratory animal caretaker bilaterally any was able to wiggle toes bilaterally next - Labs CBC & Chem 7: 08/21/17 04:32 08/21/17 04:32 Labs: Abnormal Lab Results - Last 24 Hours (Table) 08/20/17 08/21/17 08/21/17 Range/Units 17:18 04:32 04:32 WBC 12.4 H (3.8-10.6) k/uL RBC 3.75 L (4.30-5.90) m/uL Hgb 10.3 L (13.0-17.5) gm/dL Hct 32.8 L (39.0-53.0) % Neutrophils # 9.3 H (1.3-7.7) k/uL Monocytes # 1.2 H (0-1.0) k/uL Chloride 110 H (98-107) mmol/L BUN 63 H (9-20) mg/dL Creatinine 3.25 H (0.66-1.25) mg/dL POC Glucose (mg/dL) 165 H (75-99) mg/dL Calcium 7.6 L (8.4-10.2) mg/dL Phosphorus 5.4 H (2.5-4.5) mg/dL 08/21/17 08/21/17 Range/Units 06:07 12:15 WBC (3.8-10.6) k/uL RBC (4.30-5.90) m/uL Hgb (13.0-17.5) gm/dL Hct (39.0-53.0) % Neutrophils # (1.3-7.7) k/uL Monocytes # (0-1.0) k/uL Chloride (98-107) mmol/L BUN (9-20) mg/dL Creatinine (0.66-1.25) mg/dL POC Glucose (mg/dL) 68 L 118 H (75-99) mg/dL Calcium (8.4-10.2) mg/dL Phosphorus (2.5-4.5) mg/dL Microbiology - Last 24 Hours (Table) 08/17/17 19:20 CSF Gram Stain - Preliminary Cerebral Spinal Fluid CSF Culture - Preliminary Assessment and Plan (1) Metabolic encephalopathy Current Visit: Yes Status: Acute SNOMED Code(s): 16706522 (2) Acute kidney injury superimposed on chronic kidney disease Current Visit: Yes Status: Acute SNOMED Code(s): 80714402 (3) History of seizures Current Visit: Yes Status: Chronic SNOMED Code(s): 607212510 (4) Coronary artery disease Current Visit: No Status: Chronic Code(s): I25.10 - ATHSCL HEART DISEASE OF [place] CORONARY ARTERY W/O ANG PCTRS SNOMED Code(s): 67660544 (5) Respiratory failure Current Visit: No Status: Acute SNOMED Code(s): 586258956 Plan: The patient is a 71-year-old man with multiple medical problems was in the ICU and was extubated yesterday after having undergone respiratory failure due to acute hypoxic event and sepsis. He is doing better neurologically. He is more alert. He is answering questions and following commands. Family is at bedside. There is no clinical evidence of an acute stroke. He has had 2 CAT scans which did not show definitive evidence of a new stroke. He has a history of seizure disorder but there is been no seizures during his hospital stay.
[2017-08-21 17:45] LABS: Glucose,Whole Blood 170 mg/dL (75-99)
[2017-08-21] MEDS: ENOXAPARIN 30 MG/0.3 ML SYRINGE SQ SCH (17:45)
[2017-08-21 20:45] LABS: Glucose,Whole Blood 218 mg/dL (75-99)
--- NOTE | 2017-08-21 22:12 | PN ---
PROGRESS NOTE DATE OF SERVICE: 08/21/2017. REASON FOR FOLLOW UP: Urinary tract infection and possible aspiration pneumonitis. INTERVAL HISTORY: The patient is afebrile. He has been breathing comfortably. He is able to offer simple question. Denies having any chest pain. He did have some cough, but not bringing up any sputum. No nausea, vomiting. No abdominal pain or diarrhea. EXAMINATION: Blood pressure 150/78 with a pulse of 68, temperature 98.5. He is 95% on 2 L nasal cannula. General description is an elderly male lying in bed in no distress. RESPIRATORY SYSTEM: Unlabored breathing, some coarse breath sounds at the base. No wheeze. HEART: S1, S2. Regular rate and rhythm. ABDOMEN: Soft, no tenderness. LABS: Hemoglobin is 10.3 with white count of 12.4, BUN of 63, creatinine 3.25. DIAGNOSTIC IMPRESSION AND PLAN: Patient with leukocytosis, multifactorial with a component of aspiration pneumonitis UTI. The patient's white count has almost normalized to 2000. Currently on Zosyn and Diflucan will be continued. Watching his kidney function and clinical condition closely. Family was present at bedside. Questions were answered. MMODL / IJN: [id number] /
[2017-08-21] MEDS: hydrALAZINE HCL 20 MG/ML 1 ML VIAL IVP PRN (22:47)
[2017-08-22 04:47] LABS: Calcium 7.8 mg/dL (8.4-10.2); Potassium 3.7 mmol/L (3.5-5.1)
[2017-08-22] MEDS: hydrALAZINE HCL 20 MG/ML 1 ML VIAL IVP PRN (05:06)
[2017-08-22] MEDS: PIPERACILLIN-TAZOBACTAM 3.375 GM in DEXTROSE/WATER 1 50ML.BAG IVPB SCH ×3 (05:10→22:27)
[2017-08-22 07:03] LABS: HCT 33.7 % (39.0-53.0); HGB 10.8 gm/dL (13.0-17.5); MCH 28.6 pg (25.0-35.0); MCHC 32.2 g/dL (31.0-37.0); MCV 88.8 fL (80.0-100.0); Mean Platelet Volume 8.4; Platelet Count 170 k/uL (150-450); RBC 3.79 m/uL (4.30-5.90); RDW 14.8 % (11.5-15.5); WBC 12.7 k/uL (3.8-10.6)
--- NOTE | 2017-08-22 07:10 | XR ---
EXAMINATION TYPE: XR chest 1V DATE OF EXAM: 08/22/2017 COMPARISON: 08/21/2017 HISTORY: Shortness of breath TECHNIQUE: Single frontal view of the chest is obtained. FINDINGS: Cardiomediastinal silhouette is again enlarged with post CABG changes of the chest. There remains bibasilar airspace disease, leftward in the right. Trace left pleural effusion blunts the cos tophrenic angle. Previously seen right trace pleural effusion is no longer present. Osseous structure s are intact. IMPRESSION: Cardiomegaly, persistent trace left pleural effusion and bibasilar airspace disease (lef t greater than right) that are similar to the prior exam. Findings may represent decompensated conges tive heart failure and confluent pulmonary edema at the lung or bibasilar pneumonia in the appropriat e clinical setting.
[2017-08-22] MEDS ORDERED: POTASSIUM CHLORIDE ER 20 MEQ TAB.ER PO SCH (08:00)
[2017-08-22] MEDS: PANTOPRAZOLE 40 MG TABLET PO SCH (08:00)
[2017-08-22] MEDS: hydrALAZINE HCL 50 MG TAB PO SCH (08:00)
[2017-08-22] MEDS: FUROSEMIDE 10 MG/ML 2 ML VIAL IV SCH (08:00)
[2017-08-22] MEDS: levETIRAcetam IV 750 MG in SODIUM CHLORIDE 0.9% 100 ML IVPB SCH ×2 (08:07→22:08)
[2017-08-22 08:09] LABS: Glucose,Whole Blood 139 mg/dL (75-99)
[2017-08-22] MEDS: INSULIN ASPART 100 UNIT/ML 1 ML 10 ML VIAL SQ SCH ×4 (08:34→21:23)
[2017-08-22] MEDS: INSULIN DETEMIR 100 UNIT/ML 10 ML VIAL SQ SCH (08:34)
[2017-08-22] MEDS: FLUCONAZOLE ORAL SUSP 1,400 MG/35 ML BOTTLE NG-TUBE SCH (08:41)
[2017-08-22] MEDS: IPRATROPIUM-ALBUTEROL 3 ML NEB INHALATION SCH ×4 (08:53→19:52)
--- NOTE | 2017-08-22 09:04 | P.PN ---
Subjective Progress Note Date: 08/22/17 Principal diagnosis: Acute hypoxic respiratory failure secondary to sepsis and pneumonia Progress note dated 08/20/2017 71-year-old male with a history of acute hypoxemic respiratory failure requiring intubation and mechanical ventilation, secondary to sepsis likely from pneumonia. The patient was intubated on August 17. He remains on the ventilator to this date. Chest x-ray looks stable. He came in with mental status changes, sepsis and possible CVA. The patient's current vent settings are the volume assist control mode, rate of 16, tidal volume 450, FiO2 of 35% to be reduced to 25% and PEEP of 5. Arterial blood gases show a PaO2 of 140 a PaCO2 43 and a pH of 7.33. He is receiving a saline IV at KVO and tube feeds haven't a rate of 40 mL per hour with a goal of 40 mL an hour. Chest x-ray looks okay. The patient will have a spontaneous breathing trial today. It appears that his weaning parameters are reasonable on PSV of 5 and CPAP of 5. We'll make sure we do a cuff leak. He may benefit and tolerate extubation. Progress note dated 12/21/2017 71-year-old male who was actually extubated from mechanical ventilation yesterday on August 20. He has a history of acute hypoxemic respiratory failure which required intubation and mechanical ventilation, likely secondary to sepsis and pneumonia. The patient was intubated on the and extubated on the . He is doing relatively well today. Chest x-ray stable. He is currently on a liter or 2 of oxygen. His IV is half-normal saline at 75 mL an hour. The patient otherwise is doing relatively well. He did extremely well with his spontaneous breathing trial in his weaning parameters are excellent. The patient's feeling well today. No major complaints. Seems more awake and alert. Seem stronger as well. Patient has a history of acute urinary tract infection with sepsis hypoxemic respiratory failure acute on chronic nonoliguric renal failure secondary to ATN stage III chronic kidney disease hypernatremia metabolic acidosis protein/calorie malnutrition chronic atrial fibrillation CAD with previous bypass grafting diastolic heart failure and metabolic encephalopathy. On 08/22/2017 patient seen in follow-up in the intensive care unit. He was extubated over the weekend, and is tolerating extubation very well, currently on room air, and his pulse ox is 93%. Hemodynamically stable, afebrile. Today' s chest x-ray shows trace left pleural effusion and bibasilar airspace disease, left greater than the right similar to the prior exams, consistent with bibasilar pneumonia. Today's labs showed efficacy of 12.7, hemoglobin of 10.8, BUN of 64, creatinine is 3.40. Microbiology was reviewed, blood, CSF culture, and sputum cultures are negative, urine culture from 08/16/2017 was positive for Vania species. Patient is improving, lung sounds are positive for a few scattered rhonchi, but no evidence of any respiratory distress. He remains somewhat confused. He has evidence of generalized edema in bilateral upper and lower extremities, and he was oliguric this morning, is given 20 mg of IV Lasix this morning. Objective - Vital Signs Vital signs: Vital Signs Temp 98.6 F 08/22/17 04:00 Pulse 79 08/22/17 07:30 Resp 21 08/22/17 07:30 BP 158/72 08/22/17 07:30 Pulse Ox 93 L 08/22/17 07:30 Intake & Output 08/21/17 08/22/17 08/22/17 18:59 06:59 18:59 Intake Total 825 975 Output Total 520 600 Balance 305 375 Weight 78.8 kg Intake: IV 825 975 Dextrose 5% in Water 1, 675 975 000 ml @ 75 mls/hr IV . [id number] Rx#:[id number] Sodium Chloride 0.45% 1, 150 000 ml @ 75 mls/hr IV . [id number] [facility] Rx#:[id number] Output: Urine 520 600 Other: Voiding Method Indwelling Catheter Indwelling Catheter - Exam No acute distress. Oriented 2. No nasal O2 at this time. HEENT examination is grossly unremarkable. Mucous membranes are moist. No oral lesions. Neck supple. Full range of motion. No adenopathy thyromegaly or neck vein distention. Cardiovascular examination reveals regular rhythm rate. S1-S2 normal. No S3 or S4. No discernible murmur noted. Lungs reveal coarse bilateral rhonchi. Breath sounds are equal bilaterally. No crackles. No wheezes. Abdomen soft bowel sounds are heard. No masses or tenderness. Extremities are intact. No cyanosis clubbing, there is mild bilateral upper and lower extremity edema Skin is without rash or lesion. Neurologic examination is nonfocal. - Labs CBC & Chem 7: 08/22/17 04:08 08/22/17 04:08 Labs: Abnormal Lab Results - Last 24 Hours (Table) 08/21/17 08/21/17 08/21/17 Range/Units 12:15 17:44 20:43 WBC (3.8-10.6) k/uL RBC (4.30-5.90) m/uL Hgb (13.0-17.5) gm/dL Hct (39.0-53.0) % Carbon Dioxide (22-30) mmol/L BUN (9-20) mg/dL Creatinine (0.66-1.25) mg/dL Glucose (74-99) mg/dL POC Glucose (mg/dL) 118 H 170 H 218 H (75-99) mg/dL Calcium (8.4-10.2) mg/dL Phosphorus (2.5-4.5) mg/dL 08/22/17 08/22/17 08/22/17 Range/Units 04:08 04:08 08:05 WBC 12.7 H (3.8-10.6) k/uL RBC 3.79 L (4.30-5.90) m/uL Hgb 10.8 L (13.0-17.5) gm/dL Hct 33.7 L (39.0-53.0) % Carbon Dioxide 19 L (22-30) mmol/L BUN 64 H (9-20) mg/dL Creatinine 3.40 H (0.66-1.25) mg/dL Glucose 156 H (74-99) mg/dL POC Glucose (mg/dL) 139 H (75-99) mg/dL Calcium 7.8 L (8.4-10.2) mg/dL Phosphorus 5.0 H (2.5-4.5) mg/dL Microbiology - Last 24 Hours (Table) 08/17/17 19:20 CSF Gram Stain - Final Cerebral Spinal Fluid CSF Culture - Final Assessment and Plan Plan: Assessment: Acute hypoxemic respiratory failure secondary to sepsis and pneumonia. Intubation with mechanical ventilation for acute hypoxemic respiratory failure, with extubation on August 20. Acute urinary tract infection with sepsis Acute on chronic nonoliguric renal failure secondary to ATN Stage III chronic kidney disease Acute hypernatremia Acute metabolic acidosis secondary to sepsis and renal failure. Protein calorie malnutrition History of chronic atrial fibrillation History of CAD with previous bypass grafting Diastolic heart failure. Metabolic encephalopathy secondary to sepsis History of seizure disorder Plan: Patient is doing well, tolerating extubation well, currently on room air, afebrile, vital signs are stable. Mentation is still a bit confused, but improving. Patient was given 20 mg IV Lasix this morning, for low urine output as well as some mild bilateral upper and lower extremity edema. Increase activity as tolerated, patient is stable to go out of intensive care to select at [facility] [facility] today. Continue nebulized treatments, continue current antibiotic coverage, continue GI and DVT prophylaxis. We'll continue to monitor. I performed a history & physical examination of the patient and discussed their management with my nurse practitioner, Corinne Kee. I reviewed the nurse practitioner's note and agree with the documented findings and plan of care. Lung sounds are scattered rhonchi bilaterally. The findings and the impression was discussed with the patient. I attest to the documentation by the nurse practitioner. Time with Patient: Greater than 30
--- NOTE | 2017-08-22 10:10 | P.PN ---
Subjective Patient is seen in follow-up for acute kidney injury. His creatinine in May 2016 was near 1.2. This admission his creatinine was 2.5 and peaked at 3.5 as of August 13 - 3.4 today. He has a Grullon catheter in place for urinary retention. Patient was noted to be more obtunded on August 17 and was subsequently intubated and transferred to the intensive care unit. Repeat computed tomography scan revealed possible resolving subacute infarct. He also underwent a lumbar puncture which is not suggestive of bacterial infection. Urine output did improve with Lasix and is now 30-50 mL per hour. Oral intake has also improved. Hemodynamically stable. Vital signs are stable. General: The patient appeared well nourished and normally developed. Currently intubated. HEENT: Head exam is unremarkable. Neck is without jugular venous distension. LUNGS: Lungs are clear to auscultation and percussion. Breath sounds decreased. HEART: Rate and Rhythm are regular. First and second heart sounds normal. No murmurs, rubs or gallops. ABDOMEN: Abdominal exam reveals normal bowel sounds. Non-tender and non- distended. No evidence of peritonitis. EXTREMITITES: No clubbing, cyanosis, or edema. Objective - Vital Signs Vital signs: Vital Signs Temp 98.6 F 08/22/17 04:00 Pulse 71 08/22/17 09:08 Resp 21 08/22/17 07:30 BP 158/72 08/22/17 07:30 Pulse Ox 93 L 08/22/17 07:30 Intake & Output 08/21/17 08/22/17 08/22/17 18:59 06:59 18:59 Intake Total 825 975 235.0 Output Total 520 600 100 Balance 305 375 135.0 Weight 78.8 kg Intake: IV 825 975 135.0 D5 @10ml/hr 10 Dextrose 5% in Water 1, 675 975 000 ml @ 75 mls/hr IV . [id number] [facility] Rx#:[id number] Piperacillin-Tazobactam 3 25.0 .375 gm In Dextrose/Water 1 50ml.bag @ 12.5 mls/hr IVPB Q8H [facility] Rx#: [id number] Sodium Chloride 0.45% 1, 150 000 ml @ 75 mls/hr IV . [id number] [facility] Rx#:[id number] levETIRAcetam IV 750 mg 100 In Sodium Chloride 0.9% 100 ml @ 400 mls/hr IVPB Q12HR [facility] Rx#:[id number] Oral 100 Output: Urine 520 600 100 Other: Voiding Method Indwelling Catheter Indwelling Catheter - Labs CBC & Chem 7: 08/22/17 04:08 08/22/17 04:08 Labs: Abnormal Lab Results - Last 24 Hours (Table) 08/21/17 08/21/17 08/21/17 Range/Units 12:15 17:44 20:43 WBC (3.8-10.6) k/uL RBC (4.30-5.90) m/uL Hgb (13.0-17.5) gm/dL Hct (39.0-53.0) % Carbon Dioxide (22-30) mmol/L BUN (9-20) mg/dL Creatinine (0.66-1.25) mg/dL Glucose (74-99) mg/dL POC Glucose (mg/dL) 118 H 170 H 218 H (75-99) mg/dL Calcium (8.4-10.2) mg/dL Phosphorus (2.5-4.5) mg/dL 08/22/17 08/22/17 08/22/17 Range/Units 04:08 04:08 08:05 WBC 12.7 H (3.8-10.6) k/uL RBC 3.79 L (4.30-5.90) m/uL Hgb 10.8 L (13.0-17.5) gm/dL Hct 33.7 L (39.0-53.0) % Carbon Dioxide 19 L (22-30) mmol/L BUN 64 H (9-20) mg/dL Creatinine 3.40 H (0.66-1.25) mg/dL Glucose 156 H (74-99) mg/dL POC Glucose (mg/dL) 139 H (75-99) mg/dL Calcium 7.8 L (8.4-10.2) mg/dL Phosphorus 5.0 H (2.5-4.5) mg/dL Microbiology - Last 24 Hours (Table) 08/17/17 19:20 CSF Gram Stain - Final Cerebral Spinal Fluid CSF Culture - Final Assessment and Plan Plan: Assessment: #1. Nonoliguric acute kidney injury secondary to ATN secondary to sepsis and hemodynamic instability. Further worsened with the use of diuretics and STACEY inhibitor. Creatinine is 2.5 on admission and peaked at 3.5 on August 13. 3.4 today. No evidence of hydronephrosis noted on renal ultrasound. UPC 2.8. Urine eosinophils negative. Rule out GN - serologies have been negative. #2. 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 #3. Urinary retention status post Grullon catheter placement. #4. Hypertension with chronic kidney disease. Blood pressures slightly on the higher side. #5. Insulin-dependent diabetes mellitus. #6. Sepsis with likely source being pneumonia. UTI also of concern - urine culture positive for yeast. Maintained on IV antibiotics. #7. History of coronary artery disease status post CABG. #8. History of atrial fibrillation. Cardiology following. #9. Protein calorie malnutrition. #10. Diastolic CHF. #11. Metabolic acidosis secondary to acute kidney injury and IV fluids, maintained on oral sodium bicarbonate. #12. Hypernatremia secondary to lack of oral water intake. Improved. #13. Altered mental status. Concern for acute CVA. Neurology following. Plan: Continue Lasix 20 mg IV daily. Encouraged oral intake. Discontinue scheduled labetalol due to bradycardia. Increase hydralazine to 75 mg 3 times daily. Hold antihypertensives for systolic blood pressure less than 120. Maintain Grullon catheter. Repeat electrolytes in the morning. Follow-up cultures. In view of patient's overall condition and comorbidities, he will not able to tolerate a kidney biopsy at this time. Case discussed with the family last week- they are okay with proceeding with renal replacement therapy if indicated. No urgent need for renal replacement therapy at this time.
[2017-08-22] MEDS ORDERED: hydrALAZINE HCL 25 MG TAB PO ONE (10:15)
[2017-08-22] MEDS: SODIUM BICARBONATE TAB 650 MG TAB PO SCH ×2 (12:35→21:34)
[2017-08-22 13:26] LABS: Glucose,Whole Blood 154 mg/dL (75-99)
--- NOTE | 2017-08-22 15:48 | P.PN ---
Subjective Progress Note Date: 08/22/17 This is a 71-year-old male one of Dr. Lucas Gallo's patient with past medical history of hypertension, hyperlipidemia, diabetes, COPD, ,CHF , alcoholism and worsening heart failure who had open heart surgery with the CABG 2015 ended up having multiple complications and the multiple rehospitalization for worsening shortness of breath, A. fib and other complication. He was last hospitalized on 05/06/2016 at which time he was here for bradycardia and beta kojo was discontinued. He was sent in after neighbor found him in bed very weak, apparently patient has not gotten out of bed for 2 days. The neighbor checks on him on a daily basis, however on her return trip, he hasn't moved out of bed and has soiled himself stooled himself, and hasn't eaten for approximately 48 hours. Patient has difficulty in getting out of bed difficulty ambulating, his son who normally is sees constantly complaining at home, apparently admitted hospital hence no one was caring for the patient except for a visit from a neighbor. Patient has had cough, some wheezing, stiffness of the joint, difficulty in ambulating, patient hasn't had his medications for 2 days as well 08/12: Echocardiogram reveals EF of 50-55% with moderate concentric left ventricular hypertrophy, LA severely dilated at greater than 40, are appears enlarged, mild mitral calcification, mild mitral regurgitation, mild tricuspid regurgitation. Patient has been seen and evaluated by cardiology. Beta kojo was not started due to history of symptomatic bradycardia. Aspirin 81 mg was added. Patient no longer on Coumadin most likely due to risk of bleeding. White count is improved to 20.1. BUN is 63 and creatinine 2.8. TSH is 2.940. Patient is decreased mental status today. Staff was unable to feed him today. His blood pressure is stable. [place] will be changed to half a tablet which is 2.5 mg 3 times daily as needed. Keppra level will be checked in the morning as well as EEG ordered. Patient has been afebrile. PT has recommended subacute rehab. 08/13: Patient improved slightly yesterday evening where he was able to tolerate his dinner and he ate 80% of his dinner. Patient today is still lethargic but open his eyes to voice command following simple commands like moving his extremities up and down 08/14: Patient continued to have adequate urine output with a slight improvement in kidney function. Patient is improved from the mental status standpoint where he is more awake and following simple commands but looks lethargic overall. No major events reported by nursing staff 08/15: Patient was evaluated today, he underwent abdominal/bladder ultrasound, exam revealed limited exam but otherwise normal. Cardiology on consult, who discontinued his amlodipine do to hypotension. Blood pressure did improve to 132/67 today. Creatinine function slightly increased from previous, today 3.3, nephrology consult, recommends to continue with IV hydration, continue to hold lisinopril Lasix. Blood cultures show no growth to date. 08/16: Patient is still lethargic for nurse. Speech therapy has evaluated and made him nothing by mouth as he is too lethargic to eat. Keppra and Protonix changed to IV. Clonidine patch added for blood pressure control. He is continued on IV fluids at 75 mL per hour. Oral medications have been discontinued until patient is more alert. Creatinine is 3.25. Last bowel movement was 2 days ago. He has had good urine output. Repeat urinalysis shows signs of infection and patient is already on Zosyn. Consult with neurology added. 08/17: Patient has been seen by Dr. Presley with thought that metabolic encephalopathy secondary to sepsis and renal failure. CT of the brain revealed no acute intracranial hemorrhage or midline shift. No acute intracranial process. Multifocal lacunar injuries old-appearing old. Diffuse age-related triple atrophy and chronic small vessel ischemic change. Patient remains essentially unresponsive. Clonidine was increased last evening for high blood pressure. Due to elevated sodium IV fluids will be switched to D5W at 75 mL per hour. NG tube to be placed for tube feedings and consult with dietitian. 08/18: Chest x-ray revealed bilateral infiltrate and pleural effusions correlate for heart failure. NG tube in the left upper quadrant likely within the stomach. Patient was seen by Dr. Louis without the UTI could be underlying etiology for metabolic encephalopathy and possible pneumonitis. He requested anesthesia to perform LP and continue Zosyn. Diagnostic LP was done by Dr. Ulrich with return of clear spinal fluid. EEG did not reveal any seizure activity. There is been no seizure activity during this hospitalization. Dr. Presley did order MRI of the brain. A repeat chest x-ray this morning reveals congestive heart failure with small pleural effusions. Decreased pleural fluid on the left side. CT of the brain revealed possible evolving acute subacute infarct internal capsule on the right. Subsequent increase in size compared to prior study. Repeat chest x-ray shows new endotracheal tube. Similar interstitial prominence. Mild basilar opacities mostly on the left side. Mildly decreased. Dr. Mcbride as ordered 1 dose of IV Lasix 40 mg today. Last evening, patient' s blood pressure was elevated and [facility] was able to give labetalol. Patient said that a drop in his blood pressure. Patient was transferred to the intensive care unit last evening and consult with Dr. Robles was added. He was intubated at 4 this morning and remains intubated and on mechanical ventilation. Blood pressure has remained on the high side. Patient did not require vasopressors. White count went up to 20.2 sodium is 150, BUN 57 creatinine 3.1. Currently, sedation is off and patient is unresponsive. CODE STATUS was discussed with the patient's son yesterday afternoon/evening and he wanted the patient to remain full code. 08/19: Patient remains in intensive care unit on mechanical ventilation. He was given Lasix 40 mg once this morning. Chest x-ray this morning shows stable findings, persistent mild central vascular congestion and small bilateral pleural effusions with associated left basilar atelectasis and/or infiltrate. D5W was discontinued. Labetalol discontinued due to bradycardia and hydralazine added. According to Dr. Mcbride, family is okay with proceeding with dialysis. Sodium is 145, creatinine 3.19, BUN 60. Patient has been started on tube feedings and blood sugars are now running high for which Levemir will be started at 10 units along with scale NovoLog. Brother is at the bedside and updated. He does state that patient return to smoking recently. Patient has been afebrile. 08/20: Patient remains in the intensive care unit, he is currently off propofol for the past 24 hours, he is more awake, he is following directions, he is most likely would be extubated today. 08/21: Patient was extubated yesterday he is spending better he is extremely weak , he denies any chest pain, he is less short of breath, he appears to be with increased edema and upper extremities abdomen and scrotum, discussed with nephrology adding Lasix 60 mg IV 1. 08/22: Check stat x-ray shows cardiomegaly persistent trace left pleural effusion and bibasilar airspace disease left greater than right similar to prior exam. Findings may represent decompensated congestive heart failure and confluent pulmonary edema at the longer bibasilar pneumonia and the appropriate setting. Dr. Louis discontinued Zosyn and Diflucan. Repeat BUN 64 and creatinine 3.40. Nephrology is suspecting renal failure to recover. IV fluids to continue D5W. One dose of Lasix was given yesterday for scrotal edema. Patient remains in intensive care unit. Patient is noted to be extremely weak. Objective - Vital Signs Vital signs: Vital Signs Temp 98.6 F 08/22/17 04:00 Pulse 79 08/22/17 07:30 Resp 21 08/22/17 07:30 BP 158/72 08/22/17 07:30 Pulse Ox 93 L 08/22/17 07:30 Intake & Output 08/21/17 08/22/17 08/22/17 18:59 06:59 18:59 Intake Total 825 975 Output Total 520 600 Balance 305 375 Weight 78.8 kg Intake: IV 825 975 Dextrose 5% in Water 1, 675 975 000 ml @ 75 mls/hr IV . [id number] ONE Rx#:[id number] Sodium Chloride 0.45% 1, 150 000 ml @ 75 mls/hr IV . [id number] [facility] Rx#:[id number] Output: Urine 520 600 Other: Voiding Method Indwelling Catheter Indwelling Catheter - Exam General appearance: cooperative, no acute distress, thin - EENT Eyes: anicteric sclerae, EOMI, PERRLA, dentition normal ENT: hard of hearing, NA/AT, normal oropharynx - Neck Neck: no lymphadenopathy, normal ROM, no other, no rigidity, no stridor, no thyromegaly - Respiratory Respiratory: bilateral: CTA, diminished, negative: dullness, rales, rhonchi, wheezing, prolonged expiration - Cardiovascular Rhythm: regular Heart sounds: normal: S1, S2 - Gastrointestinal General gastrointestinal: normal bowel sounds, soft - Integumentary Stage I decubitus ulcer sacrum Integumentary: decreased turgor, normal - Neurologic Neurologic: CNII-XII intact - Musculoskeletal Musculoskeletal: generalized weakness, strength equal bilaterally - Psychiatric Psychiatric: Patient is A and O x3, appropriate affect, intact judgment & insight - Labs CBC & Chem 7: 08/22/17 04:08 08/22/17 04:08 Labs: Abnormal Lab Results - Last 24 Hours (Table) 08/21/17 08/21/17 08/21/17 Range/Units 12:15 17:44 20:43 WBC (3.8-10.6) k/uL RBC (4.30-5.90) m/uL Hgb (13.0-17.5) gm/dL Hct (39.0-53.0) % Carbon Dioxide (22-30) mmol/L BUN (9-20) mg/dL Creatinine (0.66-1.25) mg/dL Glucose (74-99) mg/dL POC Glucose (mg/dL) 118 H 170 H 218 H (75-99) mg/dL Calcium (8.4-10.2) mg/dL Phosphorus (2.5-4.5) mg/dL 08/22/17 08/22/17 08/22/17 Range/Units 04:08 04:08 08:05 WBC 12.7 H (3.8-10.6) k/uL RBC 3.79 L (4.30-5.90) m/uL Hgb 10.8 L (13.0-17.5) gm/dL Hct 33.7 L (39.0-53.0) % Carbon Dioxide 19 L (22-30) mmol/L BUN 64 H (9-20) mg/dL Creatinine 3.40 H (0.66-1.25) mg/dL Glucose 156 H (74-99) mg/dL POC Glucose (mg/dL) 139 H (75-99) mg/dL Calcium 7.8 L (8.4-10.2) mg/dL Phosphorus 5.0 H (2.5-4.5) mg/dL Microbiology - Last 24 Hours (Table) 08/17/17 19:20 CSF Gram Stain - Final Cerebral Spinal Fluid CSF Culture - Final Assessment and Plan Plan: 1. Metabolic encephalopathy with sepsis of unclear source aspiration pneumonia and UTI and possible evolving stroke is another etiology. Continue Zosyn. [place] discontinued. Keppra and Protonix changed to IV. Status post LP. Consult with Dr. Presley and Dr. Louis. 2. Acute hypoxic respiratory failure requiring intubation and mechanical ventilation that is successfully extubated. Continue with aggressive pulmonary toileting, monitor the patient very closely, continue status parameter, monitor chest x-ray. 3. Elevated troponin, secondary to sepsis without evidence of acute coronary syndrome. 4. Acute kidney injury secondary to ATN secondary to sepsis and hemodynamic instability with chronic kidney disease stage III. Patient is followed by nephrology. 5. Arrhythmia history with prior Nonsustained ventricular tachycardia on 2015 H and was seen by cardiology echocardiogramJuly 2016 showed atrial fibrillation with small pericardial effusion noted ejection fraction 45-50% inferolateral hypokinesis with palpation of LA size over 40. Electrolyte management is optimized 6. History bilateral hydronephrosis mild, improved from last ultrasound history Phimosis with urinary retention resolved monitor for urinary retention continue tamsulosin 7. CAD post CABG. continue aspirin 81 mg orally once every day, 8. Diabetes mellitus type II: Has been on Lantus at 20 units at bedtime along with pre-meal however with the sugars being low, and Lantus on hold , NovoLog sliding scale, current sugars are low 9. Hypertensive cardiovascular disease. Clonidine patch increased, hydralazine 20 mg IV push every 6 hours as needed. 10. Hyperlipidemia: Currently off statin. 11. Chronic A. fib. Patient is no longer on Coumadin. This may be related to risk of falls. 12. Acute on chronic systolic and possible diastolic heart failure. Lasix ordered on a daily basis 12. Recurrent depression: Has been on Prozac 20 mg daily.Xanax at bedtime-- discontinued 13. Seizure history: Has been on Keppra 750 g twice a day with no new seizure activity. Keppra changed to IV. 14. BPH: Off Flomax. [place] catheter 15. Severe GERD: Will add Protonix 40 mg daily 16. Rhabdomyolysis, hold Lipitor 17. Sacral decubitus stage I secondary to prolonged immobilization , overlay mattress and frequent turning 18. Hypernatremia. Nephrology is following. 19. Severe protein calorie malnutrition due to lack of oral intake. Patient will have NG tube placed and tube feeding started. Dietitian consult requested. 20. Prognosis guarded Discharge plan: Subacute rehab Impression and plan of care have been directed as dictated by the signing physician. Carly Greene nurse practitioner acting as scribe for signing physician.
[2017-08-22 16:30] LABS: Glucose,Whole Blood 124 mg/dL (75-99)
[2017-08-22] MEDS: ENOXAPARIN 30 MG/0.3 ML SYRINGE SQ SCH (17:42)
[2017-08-22] MEDS: hydrALAZINE HCL 25 MG TAB PO SCH ×2 (17:43→21:34)
[2017-08-22 21:01] LABS: Glucose,Whole Blood 122 mg/dL (75-99)
--- NOTE | 2017-08-22 23:29 | PN ---
PROGRESS NOTE DATE OF SERVICE: 08/22/2017 REASON FOR FOLLOWUP: 1. Aspiration pneumonia. 2. UTI. INTERVAL HISTORY: The patient is afebrile. He has been breathing comfortably. Denies having any chest pain. Occasional cough. No abdominal pain. No diarrhea. PHYSICAL EXAMINATION: Blood pressure is 183/60, pulse of 63, temperature of 97.3. He is 94% on room air. General description is an elderly male lying in bed in no distress. RESPIRATORY SYSTEM: Unlabored breathing with coarse breath sounds at the base. No wheeze. HEART: S1, S2. Regular rate and rhythm. ABDOMEN: Soft. No tenderness. EXTREMITIES: No edema of the feet. LABS: Hemoglobin is 10.3, white count 12.7, BUN of 64, creatinine 3.40. DIAGNOSTIC IMPRESSION AND PLAN: Patient with leukocytosis, multifactorial, in a patient who has possible aspiration pneumonitis and a urinary tract infection, currently covered with Zosyn and Diflucan. That will be continued. White count has shown a downward trend. Hopefully we will be able to discharge him with oral antibiotics. Continue with supportive care. MMODL / IJN: [id number] /
[2017-08-23 00:50] LABS: Calcium 7.7 mg/dL (8.4-10.2); Potassium 3.7 mmol/L (3.5-5.1)
[2017-08-23] MEDS: hydrALAZINE HCL 20 MG/ML 1 ML VIAL IVP PRN ×2 (03:20→12:50)
[2017-08-23] MEDS: PIPERACILLIN-TAZOBACTAM 3.375 GM in DEXTROSE/WATER 1 50ML.BAG IVPB SCH ×2 (06:01→17:29)
[2017-08-23 06:05] LABS: Glucose,Whole Blood 100 mg/dL (75-99)
[2017-08-23 06:06] LABS: HCT 34.1 % (39.0-53.0); HGB 11.5 gm/dL (13.0-17.5); MCH 28.9 pg (25.0-35.0); MCHC 33.8 g/dL (31.0-37.0); MCV 85.6 fL (80.0-100.0); Mean Platelet Volume 7.9; Platelet Count 191 k/uL (150-450); RBC 3.99 m/uL (4.30-5.90); WBC 12.2 k/uL (3.8-10.6)
[2017-08-23] MEDS: INSULIN ASPART 100 UNIT/ML 1 ML 10 ML VIAL SQ SCH ×4 (06:14→21:16)
[2017-08-23] MEDS: PANTOPRAZOLE 40 MG TABLET PO SCH (06:15)
[2017-08-23 06:18] LABS: Calcium 7.8 mg/dL (8.4-10.2); Phosphorus 4.5 mg/dL (2.5-4.5); Potassium 3.7 mmol/L (3.5-5.1)
[2017-08-23] MEDS: IPRATROPIUM-ALBUTEROL 3 ML NEB INHALATION SCH ×4 (07:10→19:30)
--- NOTE | 2017-08-23 07:52 | XR ---
EXAMINATION TYPE: XR chest 1V DATE OF EXAM: 08/23/2017 CLINICAL HISTORY: Difficulty breathing progress study. TECHNIQUE: Single AP portable upright view of the chest is obtained. COMPARISON: Chest x-ray from one day earlier and older studies. FINDINGS: Sternal wires and mediastinal clips are present. There is cardiomegaly with atheroscleroti c thoracic aorta. There is chronic parenchymal change with bibasilar opacities redemonstrated. There is no new focal airspace opacity or pneumothorax seen bilaterally. Osseous structures are intact. IMPRESSION: Overall stable findings, cardiomegaly and chronic parenchymal change with persistent bi basilar atelectasis and/or infiltrate probable small bilateral pleural effusions all redemonstrated.
[2017-08-23] MEDS: SODIUM BICARBONATE TAB 650 MG TAB PO SCH ×2 (08:24→20:22)
[2017-08-23] MEDS: FUROSEMIDE 10 MG/ML 2 ML VIAL IV SCH (08:25)
[2017-08-23] MEDS: hydrALAZINE HCL 25 MG TAB PO SCH ×3 (08:25→21:18)
[2017-08-23] MEDS: INSULIN DETEMIR 100 UNIT/ML 10 ML VIAL SQ SCH (08:28)
[2017-08-23] MEDS ORDERED: PARoxetine 20 MG TAB PO SCH (09:45)
[2017-08-23] MEDS ORDERED: levETIRAcetam IV 750 MG in SODIUM CHLORIDE 0.9% 100 ML IVPB ONE (10:00)
[2017-08-23] MEDS: levETIRAcetam IV 750 MG in SODIUM CHLORIDE 0.9% 100 ML IVPB SCH (10:02)
[2017-08-23] MEDS: TAMSULOSIN 0.4 MG CAP.ER.24H PO SCH (10:33)
--- NOTE | 2017-08-23 10:36 | P.PN ---
Subjective Progress Note Date: 08/23/17 Principal diagnosis: Acute hypoxic respiratory failure secondary to sepsis and pneumonia Progress note dated 08/20/2017 71-year-old male with a history of acute hypoxemic respiratory failure requiring intubation and mechanical ventilation, secondary to sepsis likely from pneumonia. The patient was intubated on August 17. He remains on the ventilator to this date. Chest x-ray looks stable. He came in with mental status changes, sepsis and possible CVA. The patient's current vent settings are the volume assist control mode, rate of 16, tidal volume 450, FiO2 of 35% to be reduced to 25% and PEEP of 5. Arterial blood gases show a PaO2 of 140 a PaCO2 43 and a pH of 7.33. He is receiving a saline IV at KVO and tube feeds haven't a rate of 40 mL per hour with a goal of 40 mL an hour. Chest x-ray looks okay. The patient will have a spontaneous breathing trial today. It appears that his weaning parameters are reasonable on PSV of 5 and CPAP of 5. We'll make sure we do a cuff leak. He may benefit and tolerate extubation. Progress note dated 12/21/2017 71-year-old male who was actually extubated from mechanical ventilation yesterday on August 20. He has a history of acute hypoxemic respiratory failure which required intubation and mechanical ventilation, likely secondary to sepsis and pneumonia. The patient was intubated on the and extubated on the . He is doing relatively well today. Chest x-ray stable. He is currently on a liter or 2 of oxygen. His IV is half-normal saline at 75 mL an hour. The patient otherwise is doing relatively well. He did extremely well with his spontaneous breathing trial in his weaning parameters are excellent. The patient's feeling well today. No major complaints. Seems more awake and alert. Seem stronger as well. Patient has a history of acute urinary tract infection with sepsis hypoxemic respiratory failure acute on chronic nonoliguric renal failure secondary to ATN stage III chronic kidney disease hypernatremia metabolic acidosis protein/calorie malnutrition chronic atrial fibrillation CAD with previous bypass grafting diastolic heart failure and metabolic encephalopathy. On 08/22/2017 patient seen in follow-up in the intensive care unit. He was extubated over the weekend, and is tolerating extubation very well, currently on room air, and his pulse ox is 93%. Hemodynamically stable, afebrile. Today' s chest x-ray shows trace left pleural effusion and bibasilar airspace disease, left greater than the right similar to the prior exams, consistent with bibasilar pneumonia. Today's labs showed efficacy of 12.7, hemoglobin of 10.8, BUN of 64, creatinine is 3.40. Microbiology was reviewed, blood, CSF culture, and sputum cultures are negative, urine culture from 08/16/2017 was positive for Vania species. Patient is improving, lung sounds are positive for a few scattered rhonchi, but no evidence of any respiratory distress. He remains somewhat confused. He has evidence of generalized edema in bilateral upper and lower extremities, and he was oliguric this morning, is given 20 mg of IV Lasix this morning. On 08/23/2017 patient seen in follow-up on selective care unit. He is resting comfortably in bed, denies any acute distress. Lung sounds are clear to auscultation, patient remains in atrial fibrillation, and his rate is controlled , he is on room air, and his pulse ox is 93%. He is afebrile, patient is generally weak. Patient's renal profile seems to be worsening, his BUN is up to 56, creatinine is 3.53. Today's chest x-ray shows cardiomegaly, bibasilar atelectasis and small bilateral pleural effusions. Nephrology and ID service are following Objective - Vital Signs Vital signs: Vital Signs Temp 97 F L 08/23/17 08:15 Pulse 86 08/23/17 08:15 Resp 20 08/23/17 08:15 BP 191/97 08/23/17 08:15 Pulse Ox 93 L 08/23/17 08:15 Intake & Output 08/22/17 08/23/17 08/23/17 18:59 06:59 18:59 Intake Total 395.0 Output Total 450 1000 Balance -55.0 -1000 Weight 78.8 kg 83 kg Intake: IV 195.0 D5 @10ml/hr 45 Piperacillin-Tazobactam 3 50.0 .375 gm In Dextrose/Water 1 50ml.bag @ 12.5 mls/hr IVPB Q8H [facility] Rx#: [id number] levETIRAcetam IV 750 mg 100 In Sodium Chloride 0.9% 100 ml @ 400 mls/hr IVPB Q12HR [facility] ROSA Rx#:[id number] Oral 200 Output: Urine 450 1000 Uretheral ([place]) 1000 Other: Voiding Method Indwelling Catheter Urinal - Exam No acute distress. Oriented 2. No nasal O2 at this time. HEENT examination is grossly unremarkable. Mucous membranes are moist. No oral lesions. Neck supple. Full range of motion. No adenopathy thyromegaly or neck vein distention. Cardiovascular examination reveals regular rhythm rate. S1-S2 normal. No S3 or S4. No discernible murmur noted. Lungs reveal clear lung sounds Abdomen soft bowel sounds are heard. No masses or tenderness. Extremities are intact. No cyanosis clubbing, there is mild bilateral upper and lower extremity edema Skin is without rash or lesion. Neurologic examination is nonfocal. - Labs CBC & Chem 7: 08/23/17 05:08/23/17 05:28 Labs: Abnormal Lab Results - Last 24 Hours (Table) 08/22/17 08/22/17 08/22/17 Range/Units 12:07 16:21 20:59 WBC (3.8-10.6) k/uL RBC (4.30-5.90) m/uL Hgb (13.0-17.5) gm/dL Hct (39.0-53.0) % Carbon Dioxide (22-30) mmol/L BUN (9-20) mg/dL Creatinine (0.66-1.25) mg/dL Glucose (74-99) mg/dL POC Glucose (mg/dL) 154 H 124 H 122 H (75-99) mg/dL Calcium (8.4-10.2) mg/dL 08/23/17 08/23/17 08/23/17 Range/Units 00:23 05:28 05:28 WBC 12.2 H (3.8-10.6) k/uL RBC 3.99 L (4.30-5.90) m/uL Hgb 11.5 L (13.0-17.5) gm/dL Hct 34.1 L (39.0-53.0) % Carbon Dioxide 20 L (22-30) mmol/L BUN 59 H 56 H (9-20) mg/dL Creatinine 3.30 H 3.53 H (0.66-1.25) mg/dL Glucose 113 H (74-99) mg/dL POC Glucose (mg/dL) (75-99) mg/dL Calcium 7.7 L 7.8 L (8.4-10.2) mg/dL 08/23/17 Range/Units 06:03 WBC (3.8-10.6) k/uL RBC (4.30-5.90) m/uL Hgb (13.0-17.5) gm/dL Hct (39.0-53.0) % Carbon Dioxide (22-30) mmol/L BUN (9-20) mg/dL Creatinine (0.66-1.25) mg/dL Glucose (74-99) mg/dL POC Glucose (mg/dL) 100 H (75-99) mg/dL Calcium (8.4-10.2) mg/dL Assessment and Plan Plan: Assessment: Acute hypoxemic respiratory failure secondary to sepsis and pneumonia. Intubation with mechanical ventilation for acute hypoxemic respiratory failure, with extubation on August 20. Acute urinary tract infection with sepsis Acute on chronic nonoliguric renal failure secondary to ATN Stage III chronic kidney disease Acute hypernatremia Acute metabolic acidosis secondary to sepsis and renal failure. Protein calorie malnutrition History of chronic atrial fibrillation History of CAD with previous bypass grafting Diastolic heart failure. Metabolic encephalopathy secondary to sepsis History of seizure disorder Plan: Patient is without any acute complaints, remains generally weak. Denies any dyspnea, lung sounds are clear to auscultation, increase activity as tolerated, consult PTOT. Afebrile, currently on room air. We'll continue current antibiotic coverage, nebulized treatments. Monitor vital signs, monitor renal profile electrolytes. I performed a history & physical examination of the patient and discussed their management with my nurse practitioner, Corinne Kee. I reviewed the nurse practitioner's note and agree with the documented findings and plan of care. Lung sounds are . The findings and the impression was discussed with the patient. I attest to the documentation by the nurse practitioner. Time with Patient: Less than 30
[2017-08-23 11:22] LABS: Glucose,Whole Blood 164 mg/dL (75-99)
--- NOTE | 2017-08-23 12:51 | PN ---
PROGRESS NOTE DATE OF SERVICE: 08/23/2017 REASON FOR FOLLOWUP: UTI and aspiration pneumonia. INTERVAL HISTORY: The patient is afebrile. He is more awake, alert. He is breathing comfortably. Denies having any chest pain. Occasional cough. No abdominal pain, no diarrhea. PHYSICAL EXAMINATION: Blood pressure 191/97, pulse of 86, temperature of 97, he is 93% on room air. General description is an elderly male, lying in bed in no distress. RESPIRATORY SYSTEM: Unlabored breathing, decreased breath sounds at the base, no wheeze. HEART: S1, S2. Regular rate and rhythm. ABDOMEN: Soft, no tenderness. LABS: Hemoglobin 11.5, white count of 12.2, BUN of 56, creatinine 3.53. DIAGNOSTIC IMPRESSION AND PLAN: Patient with leukocytosis, multifactorial component, positive aspiration pneumonitis and urinary tract infection. Currently on Zosyn and Diflucan. Switching it to oral on discharge. Finish the course of therapy. Continue supportive care. MMODL / IJN: [id number] /
[2017-08-23] MEDS ORDERED: FLUCONAZOLE 100 MG TAB PO SCH (13:00)
[2017-08-23 13:01] LABS: Appearance,Urine Cloudy (Clear); Bilirubin,Urine Negative (Negative); Blood,Urine Small (Negative); Color,Urine Light Yellow; Glucose,Urine (UA) Trace (Negative); Ketones,Urine Negative (Negative); Leukocyte Esterase,Urine Large (Negative); Nitrite,Urine Negative (Negative); Protein,Urine 2+ (Negative); RBC,Urine 10 /hpf (0-5); Specific Gravity,Urine 1.012 (1.001-1.035); Urobilinogen,Urine <2.0 mg/dL (<2.0); WBC,Urine >182 /hpf (0-5)
--- NOTE | 2017-08-23 14:37 | P.PN ---
Subjective Progress Note Date: 08/23/17 This is a 71-year-old male one of Dr. Lucas Gallo's patient with past medical history of hypertension, hyperlipidemia, diabetes, COPD, ,CHF , alcoholism and worsening heart failure who had open heart surgery with the CABG 2015 ended up having multiple complications and the multiple rehospitalization for worsening shortness of breath, A. fib and other complication. He was last hospitalized on 05/06/2016 at which time he was here for bradycardia and beta kojo was discontinued. He was sent in after neighbor found him in bed very weak, apparently patient has not gotten out of bed for 2 days. The neighbor checks on him on a daily basis, however on her return trip, he hasn't moved out of bed and has soiled himself stooled himself, and hasn't eaten for approximately 48 hours. Patient has difficulty in getting out of bed difficulty ambulating, his son who normally is sees constantly complaining at home, apparently admitted hospital hence no one was caring for the patient except for a visit from a neighbor. Patient has had cough, some wheezing, stiffness of the joint, difficulty in ambulating, patient hasn't had his medications for 2 days as well 08/12: Echocardiogram reveals EF of 50-55% with moderate concentric left ventricular hypertrophy, LA severely dilated at greater than 40, are appears enlarged, mild mitral calcification, mild mitral regurgitation, mild tricuspid regurgitation. Patient has been seen and evaluated by cardiology. Beta kojo was not started due to history of symptomatic bradycardia. Aspirin 81 mg was added. Patient no longer on Coumadin most likely due to risk of bleeding. White count is improved to 20.1. BUN is 63 and creatinine 2.8. TSH is 2.940. Patient is decreased mental status today. Staff was unable to feed him today. His blood pressure is stable. [place] will be changed to half a tablet which is 2.5 mg 3 times daily as needed. Keppra level will be checked in the morning as well as EEG ordered. Patient has been afebrile. PT has recommended subacute rehab. 08/13: Patient improved slightly yesterday evening where he was able to tolerate his dinner and he ate 80% of his dinner. Patient today is still lethargic but open his eyes to voice command following simple commands like moving his extremities up and down 08/14: Patient continued to have adequate urine output with a slight improvement in kidney function. Patient is improved from the mental status standpoint where he is more awake and following simple commands but looks lethargic overall. No major events reported by nursing staff 08/15: Patient was evaluated today, he underwent abdominal/bladder ultrasound, exam revealed limited exam but otherwise normal. Cardiology on consult, who discontinued his amlodipine do to hypotension. Blood pressure did improve to 132/67 today. Creatinine function slightly increased from previous, today 3.3, nephrology consult, recommends to continue with IV hydration, continue to hold lisinopril Lasix. Blood cultures show no growth to date. 08/16: Patient is still lethargic for nurse. Speech therapy has evaluated and made him nothing by mouth as he is too lethargic to eat. Keppra and Protonix changed to IV. Clonidine patch added for blood pressure control. He is continued on IV fluids at 75 mL per hour. Oral medications have been discontinued until patient is more alert. Creatinine is 3.25. Last bowel movement was 2 days ago. He has had good urine output. Repeat urinalysis shows signs of infection and patient is already on Zosyn. Consult with neurology added. 08/17: Patient has been seen by Dr. Presley with thought that metabolic encephalopathy secondary to sepsis and renal failure. CT of the brain revealed no acute intracranial hemorrhage or midline shift. No acute intracranial process. Multifocal lacunar injuries old-appearing old. Diffuse age-related triple atrophy and chronic small vessel ischemic change. Patient remains essentially unresponsive. Clonidine was increased last evening for high blood pressure. Due to elevated sodium IV fluids will be switched to D5W at 75 mL per hour. NG tube to be placed for tube feedings and consult with dietitian. 08/18: Chest x-ray revealed bilateral infiltrate and pleural effusions correlate for heart failure. NG tube in the left upper quadrant likely within the stomach. Patient was seen by Dr. Louis without the UTI could be underlying etiology for metabolic encephalopathy and possible pneumonitis. He requested anesthesia to perform LP and continue Zosyn. Diagnostic LP was done by Dr. Ulrich with return of clear spinal fluid. EEG did not reveal any seizure activity. There is been no seizure activity during this hospitalization. Dr. Presley did order MRI of the brain. A repeat chest x-ray this morning reveals congestive heart failure with small pleural effusions. Decreased pleural fluid on the left side. CT of the brain revealed possible evolving acute subacute infarct internal capsule on the right. Subsequent increase in size compared to prior study. Repeat chest x-ray shows new endotracheal tube. Similar interstitial prominence. Mild basilar opacities mostly on the left side. Mildly decreased. Dr. Mcbride as ordered 1 dose of IV Lasix 40 mg today. Last evening, patient' s blood pressure was elevated and [facility] was able to give labetalol. Patient said that a drop in his blood pressure. Patient was transferred to the intensive care unit last evening and consult with Dr. Robles was added. He was intubated at 4 this morning and remains intubated and on mechanical ventilation. Blood pressure has remained on the high side. Patient did not require vasopressors. White count went up to 20.2 sodium is 150, BUN 57 creatinine 3.1. Currently, sedation is off and patient is unresponsive. CODE STATUS was discussed with the patient's son yesterday afternoon/evening and he wanted the patient to remain full code. 08/19: Patient remains in intensive care unit on mechanical ventilation. He was given Lasix 40 mg once this morning. Chest x-ray this morning shows stable findings, persistent mild central vascular congestion and small bilateral pleural effusions with associated left basilar atelectasis and/or infiltrate. D5W was discontinued. Labetalol discontinued due to bradycardia and hydralazine added. According to Dr. Mcbride, family is okay with proceeding with dialysis. Sodium is 145, creatinine 3.19, BUN 60. Patient has been started on tube feedings and blood sugars are now running high for which Levemir will be started at 10 units along with scale NovoLog. Brother is at the bedside and updated. He does state that patient return to smoking recently. Patient has been afebrile. 08/20: Patient remains in the intensive care unit, he is currently off propofol for the past 24 hours, he is more awake, he is following directions, he is most likely would be extubated today. 08/21: Patient was extubated yesterday he is spending better he is extremely weak , he denies any chest pain, he is less short of breath, he appears to be with increased edema and upper extremities abdomen and scrotum, discussed with nephrology adding Lasix 60 mg IV 1. 08/22: Check stat x-ray shows cardiomegaly persistent trace left pleural effusion and bibasilar airspace disease left greater than right similar to prior exam. Findings may represent decompensated congestive heart failure and confluent pulmonary edema at the longer bibasilar pneumonia and the appropriate setting. Dr. Louis discontinued Zosyn and Diflucan. Repeat BUN 64 and creatinine 3.40. Nephrology is suspecting renal failure to recover. IV fluids to continue D5W. One dose of Lasix was given yesterday for scrotal edema. Patient remains in intensive care unit. Patient is noted to be extremely weak. 08/23: Patient is now seen on the selective care unit. Repeat chest x-ray shows overall stable findings, cardiomegaly and chronic parenchymal change with persistent bibasilar atelectasis and/or infiltrate probable small bilateral pleural effusions are redemonstrated. Dr. Mcbride has recommended continuing IV Lasix 20 mg daily and increase hydralazine to 75 mg 3 times daily, maintain Grullon catheter. Patient's Grullon catheter was discontinued yesterday. He has required straight cath twice for greater than 1000 mL. And Grullon catheter is now in place. Pulse ox is 93% on room air. White count is 12.2, BUN 56 and creatinine 3.53. Plan for patient to start participating with physical therapy. Objective - Vital Signs Vital signs: Vital Signs Temp 97 F L 08/23/17 08:15 Pulse 86 08/23/17 08:15 Resp 20 08/23/17 08:15 BP 191/97 08/23/17 08:15 Pulse Ox 93 L 08/23/17 08:15 Intake & Output 08/22/17 08/23/17 08/23/17 18:59 06:59 18:59 Intake Total 395.0 Output Total 450 1000 Balance -55.0 -1000 Weight 78.8 kg 83 kg Intake: IV 195.0 D5 @10ml/hr 45 Piperacillin-Tazobactam 3 50.0 .375 gm In Dextrose/Water 1 50ml.bag @ 12.5 mls/hr IVPB Q8H [facility] Rx#: [id number] levETIRAcetam IV 750 mg 100 In Sodium Chloride 0.9% 100 ml @ 400 mls/hr IVPB Q12HR [facility] Rx#:[id number] Oral 200 Output: Urine 450 1000 Uretheral (Grullon) 1000 Other: Voiding Method Indwelling Catheter Urinal - Exam General appearance: cooperative, no acute distress, thin - EENT Eyes: anicteric sclerae, EOMI, PERRLA, dentition normal ENT: hard of hearing, NA/AT, normal oropharynx - Neck Neck: no lymphadenopathy, normal ROM, no other, no rigidity, no stridor, no thyromegaly - Respiratory Respiratory: bilateral: CTA, diminished, negative: dullness, rales, rhonchi, wheezing, prolonged expiration - Cardiovascular Rhythm: regular Heart sounds: normal: S1, S2 - Gastrointestinal General gastrointestinal: normal bowel sounds, soft - Integumentary Stage I decubitus ulcer sacrum Integumentary: decreased turgor, normal - Neurologic Neurologic: CNII-XII intact - Musculoskeletal Musculoskeletal: generalized weakness, strength equal bilaterally - Psychiatric Psychiatric: Patient is A and O x3, appropriate affect, intact judgment & insight - Labs CBC & Chem 7: 08/23/17 05:28 08/23/17 05:28 Labs: Abnormal Lab Results - Last 24 Hours (Table) 08/22/17 08/22/17 08/22/17 Range/Units 12:07 16:21 20:59 WBC (3.8-10.6) k/uL RBC (4.30-5.90) m/uL Hgb (13.0-17.5) gm/dL Hct (39.0-53.0) % Carbon Dioxide (22-30) mmol/L BUN (9-20) mg/dL Creatinine (0.66-1.25) mg/dL Glucose (74-99) mg/dL POC Glucose (mg/dL) 154 H 124 H 122 H (75-99) mg/dL Calcium (8.4-10.2) mg/dL 08/23/17 08/23/17 08/23/17 Range/Units 00:23 05:28 05:28 WBC 12.2 H (3.8-10.6) k/uL RBC 3.99 L (4.30-5.90) m/uL Hgb 11.5 L (13.0-17.5) gm/dL Hct 34.1 L (39.0-53.0) % Carbon Dioxide 20 L (22-30) mmol/L BUN 59 H 56 H (9-20) mg/dL Creatinine 3.30 H 3.53 H (0.66-1.25) mg/dL Glucose 113 H (74-99) mg/dL POC Glucose (mg/dL) (75-99) mg/dL Calcium 7.7 L 7.8 L (8.4-10.2) mg/dL 08/23/17 Range/Units 06:03 WBC (3.8-10.6) k/uL RBC (4.30-5.90) m/uL Hgb (13.0-17.5) gm/dL Hct (39.0-53.0) % Carbon Dioxide (22-30) mmol/L BUN (9-20) mg/dL Creatinine (0.66-1.25) mg/dL Glucose (74-99) mg/dL POC Glucose (mg/dL) 100 H (75-99) mg/dL Calcium (8.4-10.2) mg/dL Assessment and Plan Plan: 1. Metabolic encephalopathy with sepsis of unclear source aspiration pneumonia and UTI and possible evolving stroke is another etiology. Continue Zosyn and Diflucan. [place] discontinued. Status post LP. Consult with Dr. Presley and Dr. Louis. 2. Acute hypoxic respiratory failure requiring intubation and mechanical ventilation that is successfully extubated. Continue with aggressive pulmonary toileting, monitor the patient very closely. 3. Elevated troponin, secondary to sepsis without evidence of acute coronary syndrome. 4. Acute kidney injury secondary to ATN secondary to sepsis and hemodynamic instability with chronic kidney disease stage III. Patient is followed by nephrology. 5. Arrhythmia history with prior Nonsustained ventricular tachycardia on 2015 H and was seen by cardiology echocardiogramJuly 2016 showed atrial fibrillation with small pericardial effusion noted ejection fraction 45-50% inferolateral hypokinesis with palpation of LA size over 40. Electrolyte management is optimized 6. History bilateral hydronephrosis mild, improved from last ultrasound history Phimosis with urinary retention resolved monitor for urinary retention continue tamsulosin 7. CAD post CABG. continue aspirin 81 mg orally once every day, 8. Diabetes mellitus type II: Has been on Lantus at 20 units at bedtime along with pre-meal however with the sugars being low, and Lantus on hold , NovoLog sliding scale, current sugars are low 9. Hypertensive cardiovascular disease. Clonidine patch increased, hydralazine 20 mg IV push every 6 hours as needed. 10. Hyperlipidemia: Currently off statin. 11. Chronic A. fib. Patient is no longer on Coumadin. This may be related to risk of falls. 12. Acute on chronic systolic and possible diastolic heart failure. Lasix ordered on a daily basis 12. Recurrent depression: Has been on Paxil 40 mg daily resumed at 10 mg daily.Xanax at bedtime--discontinued 13. Seizure history: Has been on Keppra 750 g twice a day with no new seizure activity. Keppra changed to IV. 14. BPH: Resume Flomax. Grullon catheter 15. Severe GERD: Will add Protonix 40 mg daily 16. Rhabdomyolysis, hold Lipitor 17. Sacral decubitus stage I secondary to prolonged immobilization , overlay mattress and frequent turning 18. Hypernatremia. Nephrology is following. 19. Severe protein calorie malnutrition due to lack of oral intake. Dietitian consult requested. 20. Prognosis guarded Discharge plan: Subacute rehab Impression and plan of care have been directed as dictated by the signing physician. Carly Greene nurse practitioner acting as scribe for signing physician.
--- NOTE | 2017-08-23 15:06 | PN ---
PROGRESS NOTE The patient is seen for followup for acute kidney injury secondary to ischemic ATN and ATN from sepsis. The patient denies any significant complaints. His renal function is slightly worse with creatinine at 3.5 from 3.3 yesterday. Lasix is decreased to 20 mg IV daily. The patient has a Grullon catheter. EXAMINATION: Blood pressure was 186/97, heart rate 74 per minute. Patient is afebrile. Examination of the heart: S1, S2. Examination lungs: Bilateral breath sounds are heard. Abdomen is soft, obese, nontender. Examination of the lower extremities shows edema 1+ bilaterally. [employer] exam is grossly intact. LABS SHOW: Sodium of 142, potassium 3.7, chloride 107, BUN 56, serum creatinine 3.53, hemoglobin 11.5 g/dL. UA shows WBCs more than 182, 2+ protein. All serologies are negative. [place] and lambda chains slightly elevated. ASSESSMENT: 1. Acute kidney injury, acute tubular necrosis, nonoliguric with renal function slightly worse today. He is not on any nephrotoxic medications. The patient's blood pressure is not low. Lasix is only at 20 mg IV daily. I will recheck labs in a.m. No indication to proceed with renal replacement therapy today. We will continue to monitor his urine output accurately. 2. Chronic kidney disease stage III with baseline creatinine 1.2 secondary to diabetic nephropathy. 3. Urine retention with Grullon catheter. 4. Sepsis from pneumonia and urinary tract infection. 5. Urinary tract infection with urine culture growing yeast. 6. Coronary artery disease status post coronary artery bypass surgery. 7. History of atrial fibrillation. 8. Metabolic acidosis associated with renal failure, maintained on oral sodium bicarb. PLAN: Continue current dose of Lasix. Repeat labs in a.m. No need for renal replacement therapy today. MMODL / IJN: [id number] /
[2017-08-23 16:31] LABS: Glucose,Whole Blood 195 mg/dL (75-99)
[2017-08-23] MEDS: ENOXAPARIN 30 MG/0.3 ML SYRINGE SQ SCH (17:25)
[2017-08-23] MEDS: levETIRAcetam 250 MG TAB PO SCH (20:22)
[2017-08-23] MEDS: MONTELUKAST 10 MG TAB PO SCH (20:22)
[2017-08-23 20:54] LABS: Glucose,Whole Blood 138 mg/dL (75-99)
--- NOTE | 2017-08-23 20:58 | P.PN ---
Subjective Progress Note Date: 08/23/17 The patient is a 71-year-old man admitted to the hospital with unresponsiveness sepsis renal failure multiple medical problems. He went into respiratory failure on 08/18/2017 and was intubated and admitted to the ICU. He is doing much better today. He is alert. He is answering and conversing. He has no specific complaints. He is oriented to person and place. His overall neuro exam is nonfocal. He is much more alert and his mental status is improved. Objective - Vital Signs Vital signs: Vital Signs Temp 97.8 F 08/23/17 20:00 Pulse 67 08/23/17 20:00 Resp 18 08/23/17 20:00 BP 159/87 08/23/17 20:00 Pulse Ox 95 08/23/17 20:00 Intake & Output 08/23/17 08/23/17 08/24/17 06:59 18:59 06:59 Intake Total 476 Output Total 1000 1000 Balance -1000 -524 Weight 83 kg Intake: Oral 476 Output: Urine 1000 1000 Uretheral (Grullon) 1000 Other: Voiding Method Urinal Indwelling Catheter Indwelling Catheter - Constitutional General appearance: Present: average body habitus - EENT Eyes: Present: EOMI - Respiratory Respiratory: bilateral: CTA - Cardiovascular Rhythm: regular - Neurologic Neurologic Comment(s): Neurologic examination: Next Mental status: The patient is awake he is alert he is oriented to person and place. There is no a aphasia or dysarthria. He follow commands and follows commands appropriately Cranial nerves II through XII grossly intact next Motor examination he is able to move all 4 extremities. No focal weakness detected. - Labs CBC & Chem 7: 08/23/17 05:28 08/23/17 05:28 Labs: Abnormal Lab Results - Last 24 Hours (Table) 08/22/17 08/23/17 08/23/17 Range/Units 20:59 00:23 05:28 WBC (3.8-10.6) k/uL RBC (4.30-5.90) m/uL Hgb (13.0-17.5) gm/dL Hct (39.0-53.0) % Carbon Dioxide 20 L (22-30) mmol/L BUN 59 H 56 H (9-20) mg/dL Creatinine 3.30 H 3.53 H (0.66-1.25) mg/dL Glucose 113 H (74-99) mg/dL POC Glucose (mg/dL) 122 H (75-99) mg/dL Calcium 7.7 L 7.8 L (8.4-10.2) mg/dL Urine Protein (Negative) Urine Glucose (UA) (Negative) Urine Blood (Negative) Ur Leukocyte Esterase (Negative) Urine RBC (0-5) /hpf Urine WBC (0-5) /hpf Urine WBC Clumps (None) /hpf 08/23/17 08/23/17 08/23/17 Range/Units 05:28 06:03 11:20 WBC 12.2 H (3.8-10.6) k/uL RBC 3.99 L (4.30-5.90) m/uL Hgb 11.5 L (13.0-17.5) gm/dL Hct 34.1 L (39.0-53.0) % Carbon Dioxide (22-30) mmol/L BUN (9-20) mg/dL Creatinine (0.66-1.25) mg/dL Glucose (74-99) mg/dL POC Glucose (mg/dL) 100 H 164 H (75-99) mg/dL Calcium (8.4-10.2) mg/dL Urine Protein (Negative) Urine Glucose (UA) (Negative) Urine Blood (Negative) Ur Leukocyte Esterase (Negative) Urine RBC (0-5) /hpf Urine WBC (0-5) /hpf Urine WBC Clumps (None) /hpf 08/23/17 08/23/17 08/23/17 Range/Units 12:15 16:29 20:53 WBC (3.8-10.6) k/uL RBC (4.30-5.90) m/uL Hgb (13.0-17.5) gm/dL Hct (39.0-53.0) % Carbon Dioxide (22-30) mmol/L BUN (9-20) mg/dL Creatinine (0.66-1.25) mg/dL Glucose (74-99) mg/dL POC Glucose (mg/dL) 195 H 138 H (75-99) mg/dL Calcium (8.4-10.2) mg/dL Urine Protein 2+ H (Negative) Urine Glucose (UA) Trace H (Negative) Urine Blood Small H (Negative) Ur Leukocyte Esterase Large H (Negative) Urine RBC 10 H (0-5) /hpf Urine WBC >182 H (0-5) /hpf Urine WBC Clumps Many H (None) /hpf Microbiology - Last 24 Hours (Table) 08/23/17 12:15 Urine Culture - Preliminary Urine,Catheterized Assessment and Plan (1) Metabolic encephalopathy Current Visit: Yes Status: Acute SNOMED Code(s): 98764999 (2) Acute kidney injury superimposed on chronic kidney disease Current Visit: Yes Status: Acute SNOMED Code(s): 90573717 (3) History of seizures Current Visit: Yes Status: Chronic SNOMED Code(s): 815097011 (4) Coronary artery disease Current Visit: No Status: Chronic Code(s): I25.10 - ATHSCL HEART DISEASE OF [place] CORONARY ARTERY W/O ANG PCTRS SNOMED Code(s): 12814177 (5) Respiratory failure Current Visit: No Status: Acute SNOMED Code(s): 086361672 Plan: The patient is a 71-year-old man with multiple medical problems was in the ICU after having undergone respiratory failure due to acute hypoxic event and sepsis. He has had 2 CAT scans which did not show definitive evidence of a new stroke. He has a history of seizure disorder but there is been no seizures during his hospital stay. The patient is doing much better neurologically. He is more alert and attentive. He is able to respond appropriately to questions. He will need physical therapy and rehab
[2017-08-24] MEDS: hydrALAZINE HCL 20 MG/ML 1 ML VIAL IVP PRN ×2 (03:15→18:50)
[2017-08-24 04:32] LABS: HCT 32.2 % (39.0-53.0); HGB 10.8 gm/dL (13.0-17.5); MCH 28.6 pg (25.0-35.0); MCHC 33.4 g/dL (31.0-37.0); MCV 85.5 fL (80.0-100.0); Mean Platelet Volume 7.8; Platelet Count 182 k/uL (150-450); RBC 3.76 m/uL (4.30-5.90); RDW 14.9 % (11.5-15.5); WBC 9.8 k/uL (3.8-10.6)
[2017-08-24 04:47] LABS: Calcium 7.8 mg/dL (8.4-10.2); Magnesium 1.9 mg/dL (1.6-2.3); Potassium 3.5 mmol/L (3.5-5.1)
[2017-08-24 05:45] LABS: Glucose,Whole Blood 157 mg/dL (75-99)
[2017-08-24] MEDS: INSULIN ASPART 100 UNIT/ML 1 ML 10 ML VIAL SQ SCH ×4 (06:04→21:22)
[2017-08-24] MEDS: PANTOPRAZOLE 40 MG TABLET PO SCH (06:05)
[2017-08-24] MEDS: PIPERACILLIN-TAZOBACTAM 3.375 GM in DEXTROSE/WATER 1 50ML.BAG IVPB SCH ×2 (06:08→17:23)
[2017-08-24] MEDS ORDERED: FLUCONAZOLE 100 MG TAB PO SCH (06:46)
[2017-08-24] MEDS ORDERED: Potassium Replacement Protocol 1 EACH MISC MISCELLANE PRN (06:52)
[2017-08-24] MEDS ORDERED: Magnesium Replacement Protocol 1 EACH MISC MISCELLANE PRN (06:54)
[2017-08-24] MEDS: IPRATROPIUM-ALBUTEROL 3 ML NEB INHALATION SCH ×4 (07:56→20:58)
[2017-08-24] MEDS ORDERED: POTASSIUM CHLORIDE ER 20 MEQ TAB.ER PO SCH (08:00)
[2017-08-24] MEDS: hydrALAZINE HCL 25 MG TAB PO SCH ×3 (09:00→21:22)
[2017-08-24] MEDS: METOPROLOL TARTRATE 25 MG TAB PO SCH ×2 (09:01→21:23)
[2017-08-24] MEDS: SODIUM BICARBONATE TAB 650 MG TAB PO SCH ×2 (09:01→21:22)
[2017-08-24] MEDS: PARoxetine 10 MG TAB PO SCH (09:01)
[2017-08-24] MEDS: FUROSEMIDE 10 MG/ML 2 ML VIAL IV SCH (09:01)
[2017-08-24] MEDS: levETIRAcetam 250 MG TAB PO SCH ×2 (09:01→21:23)
[2017-08-24] MEDS: INSULIN DETEMIR 100 UNIT/ML 10 ML VIAL SQ SCH (10:29)
--- NOTE | 2017-08-24 10:39 | P.PN ---
Subjective Progress Note Date: 08/24/17 Principal diagnosis: Acute hypoxic respiratory failure secondary to sepsis and pneumonia Progress note dated 08/20/2017 71-year-old male with a history of acute hypoxemic respiratory failure requiring intubation and mechanical ventilation, secondary to sepsis likely from pneumonia. The patient was intubated on August 17. He remains on the ventilator to this date. Chest x-ray looks stable. He came in with mental status changes, sepsis and possible CVA. The patient's current vent settings are the volume assist control mode, rate of 16, tidal volume 450, FiO2 of 35% to be reduced to 25% and PEEP of 5. Arterial blood gases show a PaO2 of 140 a PaCO2 43 and a pH of 7.33. He is receiving a saline IV at KVO and tube feeds haven't a rate of 40 mL per hour with a goal of 40 mL an hour. Chest x-ray looks okay. The patient will have a spontaneous breathing trial today. It appears that his weaning parameters are reasonable on PSV of 5 and CPAP of 5. We'll make sure we do a cuff leak. He may benefit and tolerate extubation. Progress note dated 12/21/2017 71-year-old male who was actually extubated from mechanical ventilation yesterday on August 20. He has a history of acute hypoxemic respiratory failure which required intubation and mechanical ventilation, likely secondary to sepsis and pneumonia. The patient was intubated on the and extubated on the . He is doing relatively well today. Chest x-ray stable. He is currently on a liter or 2 of oxygen. His IV is half-normal saline at 75 mL an hour. The patient otherwise is doing relatively well. He did extremely well with his spontaneous breathing trial in his weaning parameters are excellent. The patient's feeling well today. No major complaints. Seems more awake and alert. Seem stronger as well. Patient has a history of acute urinary tract infection with sepsis hypoxemic respiratory failure acute on chronic nonoliguric renal failure secondary to ATN stage III chronic kidney disease hypernatremia metabolic acidosis protein/calorie malnutrition chronic atrial fibrillation CAD with previous bypass grafting diastolic heart failure and metabolic encephalopathy. On 08/22/2017 patient seen in follow-up in the intensive care unit. He was extubated over the weekend, and is tolerating extubation very well, currently on room air, and his pulse ox is 93%. Hemodynamically stable, afebrile. Today' s chest x-ray shows trace left pleural effusion and bibasilar airspace disease, left greater than the right similar to the prior exams, consistent with bibasilar pneumonia. Today's labs showed efficacy of 12.7, hemoglobin of 10.8, BUN of 64, creatinine is 3.40. Microbiology was reviewed, blood, CSF culture, and sputum cultures are negative, urine culture from 08/16/2017 was positive for Vania species. Patient is improving, lung sounds are positive for a few scattered rhonchi, but no evidence of any respiratory distress. He remains somewhat confused. He has evidence of generalized edema in bilateral upper and lower extremities, and he was oliguric this morning, is given 20 mg of IV Lasix this morning. On 08/23/2017 patient seen in follow-up on selective care unit. He is resting comfortably in bed, denies any acute distress. Lung sounds are clear to auscultation, patient remains in atrial fibrillation, and his rate is controlled , he is on room air, and his pulse ox is 93%. He is afebrile, patient is generally weak. Patient's renal profile seems to be worsening, his BUN is up to 56, creatinine is 3.53. Today's chest x-ray shows cardiomegaly, bibasilar atelectasis and small bilateral pleural effusions. Nephrology and ID service are following 08/24/2017 patient seen in follow-up on selective care unit. He is resting in bed, denies any acute distress. He states his biggest complaint is lack of energy, and fatigue. Denies any dyspnea, denies any chest pain. On yesterday' s chest x-ray there were stable findings, of cardiomegaly and bibasilar atelectasis, and small bilateral pleural effusions. Patient remains on 2 L per nasal cannula, with O2 sat at 99%, this can probably be further wean down. Patient is afebrile, hemodynamically stable. Respirations are even and nonlabored. Lung sounds are clear to auscultation. Labs are negative for any evidence of leukocytosis, hemoglobin is 10.8, his renal profile is improving, electrolytes are within normal limits. Patient remains stable from pulmonary standpoint. Objective - Vital Signs Vital signs: Vital Signs Temp 98.2 F 08/24/17 08:00 Pulse 76 05/02/18 08:10 Resp 18 08/24/17 08:00 BP 162/74 08/24/17 08:00 Pulse Ox 99 08/24/17 08:00 Intake & Output 08/23/17 08/24/17 08/24/17 18:59 06:59 18:59 Intake Total 476 150 240 Output Total 1000 425 Balance -524 -275 240 Weight 82.5 kg Intake: Oral 476 150 240 Output: Urine 1000 425 Other: Voiding Method Indwelling Catheter Indwelling Catheter Indwelling Catheter # Bowel Movements 1 - Exam No acute distress. Oriented 2. No nasal O2 at this time. HEENT examination is grossly unremarkable. Mucous membranes are moist. No oral lesions. Neck supple. Full range of motion. No adenopathy thyromegaly or neck vein distention. Cardiovascular examination reveals regular rhythm rate. S1-S2 normal. No S3 or S4. No discernible murmur noted. Lungs reveal clear lung sounds Abdomen soft bowel sounds are heard. No masses or tenderness. Extremities are intact. No cyanosis clubbing, there is mild bilateral upper and lower extremity edema Skin is without rash or lesion. Neurologic examination is nonfocal. - Labs CBC & Chem 7: 08/24/17 04:07 08/24/17 04:07 Labs: Abnormal Lab Results - Last 24 Hours (Table) 08/23/17 08/23/17 08/23/17 Range/Units 11:20 12:15 16:29 RBC (4.30-5.90) m/uL Hgb (13.0-17.5) gm/dL Hct (39.0-53.0) % BUN (9-20) mg/dL Creatinine (0.66-1.25) mg/dL Glucose (74-99) mg/dL POC Glucose (mg/dL) 164 H 195 H (75-99) mg/dL Calcium (8.4-10.2) mg/dL Urine Protein 2+ H (Negative) Urine Glucose (UA) Trace H (Negative) Urine Blood Small H (Negative) Ur Leukocyte Esterase Large H (Negative) Urine RBC 10 H (0-5) /hpf Urine WBC >182 H (0-5) /hpf Urine WBC Clumps Many H (None) /hpf 08/23/17 08/24/17 08/24/17 Range/Units 20:53 04:07 04:07 RBC 3.76 L (4.30-5.90) m/uL Hgb 10.8 L (13.0-17.5) gm/dL Hct 32.2 L (39.0-53.0) % BUN 49 H (9-20) mg/dL Creatinine 2.90 H (0.66-1.25) mg/dL Glucose 135 H (74-99) mg/dL POC Glucose (mg/dL) 138 H (75-99) mg/dL Calcium 7.8 L (8.4-10.2) mg/dL Urine Protein (Negative) Urine Glucose (UA) (Negative) Urine Blood (Negative) Ur Leukocyte Esterase (Negative) Urine RBC (0-5) /hpf Urine WBC (0-5) /hpf Urine WBC Clumps (None) /hpf 08/24/17 Range/Units 05:43 RBC (4.30-5.90) m/uL Hgb (13.0-17.5) gm/dL Hct (39.0-53.0) % BUN (9-20) mg/dL Creatinine (0.66-1.25) mg/dL Glucose (74-99) mg/dL POC Glucose (mg/dL) 157 H (75-99) mg/dL Calcium (8.4-10.2) mg/dL Urine Protein (Negative) Urine Glucose (UA) (Negative) Urine Blood (Negative) Ur Leukocyte Esterase (Negative) Urine RBC (0-5) /hpf Urine WBC (0-5) /hpf Urine WBC Clumps (None) /hpf Microbiology - Last 24 Hours (Table) 08/23/17 12:15 Urine Culture - Preliminary Urine,Catheterized Assessment and Plan Plan: Assessment: Acute hypoxemic respiratory failure secondary to sepsis and pneumonia. Intubation with mechanical ventilation for acute hypoxemic respiratory failure, with extubation on August 20. Acute urinary tract infection with sepsis Acute on chronic nonoliguric renal failure secondary to ATN, improving Stage III chronic kidney disease Acute hypernatremia Acute metabolic acidosis secondary to sepsis and renal failure. Protein calorie malnutrition History of chronic atrial fibrillation History of CAD with previous bypass grafting Diastolic heart failure. Metabolic encephalopathy secondary to sepsis History of seizure disorder Plan: Patient remains stable from pulmonary standpoint, his leukocytosis has resolved on today's lab work, the patient is afebrile, hemodynamically stable. Increase activity as tolerated, patient may need PT/OT consult, remains generally weak. Continue antibiotic therapy per ID recommendations, patient is receiving diuretics, patient's renal profile is improving. Continue with current plan of care I performed a history & physical examination of the patient and discussed their management with my nurse practitioner, Corinne Kee. I reviewed the nurse practitioner's note and agree with the documented findings and plan of care. Lung sounds are clear. The findings and the impression was discussed with the patient. I attest to the documentation by the nurse practitioner. Time with Patient: Less than 30
--- NOTE | 2017-08-24 11:13 | P.PN ---
Subjective Progress Note Date: 08/24/17 This is a 71-year-old male one of Dr. Lucas Gallo's patient with past medical history of hypertension, hyperlipidemia, diabetes, COPD, ,CHF , alcoholism and worsening heart failure who had open heart surgery with the CABG 2015 ended up having multiple complications and the multiple rehospitalization for worsening shortness of breath, A. fib and other complication. He was last hospitalized on 05/06/2016 at which time he was here for bradycardia and beta kojo was discontinued. He was sent in after neighbor found him in bed very weak, apparently patient has not gotten out of bed for 2 days. The neighbor checks on him on a daily basis, however on her return trip, he hasn't moved out of bed and has soiled himself stooled himself, and hasn't eaten for approximately 48 hours. Patient has difficulty in getting out of bed difficulty ambulating, his son who normally is sees constantly complaining at home, apparently admitted hospital hence no one was caring for the patient except for a visit from a neighbor. Patient has had cough, some wheezing, stiffness of the joint, difficulty in ambulating, patient hasn't had his medications for 2 days as well 08/12: Echocardiogram reveals EF of 50-55% with moderate concentric left ventricular hypertrophy, LA severely dilated at greater than 40, are appears enlarged, mild mitral calcification, mild mitral regurgitation, mild tricuspid regurgitation. Patient has been seen and evaluated by cardiology. Beta kojo was not started due to history of symptomatic bradycardia. Aspirin 81 mg was added. Patient no longer on Coumadin most likely due to risk of bleeding. White count is improved to 20.1. BUN is 63 and creatinine 2.8. TSH is 2.940. Patient is decreased mental status today. Staff was unable to feed him today. His blood pressure is stable. [place] will be changed to half a tablet which is 2.5 mg 3 times daily as needed. Keppra level will be checked in the morning as well as EEG ordered. Patient has been afebrile. PT has recommended subacute rehab. 08/13: Patient improved slightly yesterday evening where he was able to tolerate his dinner and he ate 80% of his dinner. Patient today is still lethargic but open his eyes to voice command following simple commands like moving his extremities up and down 08/14: Patient continued to have adequate urine output with a slight improvement in kidney function. Patient is improved from the mental status standpoint where he is more awake and following simple commands but looks lethargic overall. No major events reported by nursing staff 08/15: Patient was evaluated today, he underwent abdominal/bladder ultrasound, exam revealed limited exam but otherwise normal. Cardiology on consult, who discontinued his amlodipine do to hypotension. Blood pressure did improve to 132/67 today. Creatinine function slightly increased from previous, today 3.3, nephrology consult, recommends to continue with IV hydration, continue to hold lisinopril Lasix. Blood cultures show no growth to date. 08/16: Patient is still lethargic for nurse. Speech therapy has evaluated and made him nothing by mouth as he is too lethargic to eat. Keppra and Protonix changed to IV. Clonidine patch added for blood pressure control. He is continued on IV fluids at 75 mL per hour. Oral medications have been discontinued until patient is more alert. Creatinine is 3.25. Last bowel movement was 2 days ago. He has had good urine output. Repeat urinalysis shows signs of infection and patient is already on Zosyn. Consult with neurology added. 08/17: Patient has been seen by Dr. Presley with thought that metabolic encephalopathy secondary to sepsis and renal failure. CT of the brain revealed no acute intracranial hemorrhage or midline shift. No acute intracranial process. Multifocal lacunar injuries old-appearing old. Diffuse age-related triple atrophy and chronic small vessel ischemic change. Patient remains essentially unresponsive. Clonidine was increased last evening for high blood pressure. Due to elevated sodium IV fluids will be switched to D5W at 75 mL per hour. NG tube to be placed for tube feedings and consult with dietitian. 08/18: Chest x-ray revealed bilateral infiltrate and pleural effusions correlate for heart failure. NG tube in the left upper quadrant likely within the stomach. Patient was seen by Dr. Louis without the UTI could be underlying etiology for metabolic encephalopathy and possible pneumonitis. He requested anesthesia to perform LP and continue Zosyn. Diagnostic LP was done by Dr. Ulrich with return of clear spinal fluid. EEG did not reveal any seizure activity. There is been no seizure activity during this hospitalization. Dr. Presley did order MRI of the brain. A repeat chest x-ray this morning reveals congestive heart failure with small pleural effusions. Decreased pleural fluid on the left side. CT of the brain revealed possible evolving acute subacute infarct internal capsule on the right. Subsequent increase in size compared to prior study. Repeat chest x-ray shows new endotracheal tube. Similar interstitial prominence. Mild basilar opacities mostly on the left side. Mildly decreased. Dr. Mcbride as ordered 1 dose of IV Lasix 40 mg today. Last evening, patient' s blood pressure was elevated and [facility] was able to give labetalol. Patient said that a drop in his blood pressure. Patient was transferred to the intensive care unit last evening and consult with Dr. Robles was added. He was intubated at 4 this morning and remains intubated and on mechanical ventilation. Blood pressure has remained on the high side. Patient did not require vasopressors. White count went up to 20.2 sodium is 150, BUN 57 creatinine 3.1. Currently, sedation is off and patient is unresponsive. CODE STATUS was discussed with the patient's son yesterday afternoon/evening and he wanted the patient to remain full code. 08/19: Patient remains in intensive care unit on mechanical ventilation. He was given Lasix 40 mg once this morning. Chest x-ray this morning shows stable findings, persistent mild central vascular congestion and small bilateral pleural effusions with associated left basilar atelectasis and/or infiltrate. D5W was discontinued. Labetalol discontinued due to bradycardia and hydralazine added. According to Dr. Mcbride, family is okay with proceeding with dialysis. Sodium is 145, creatinine 3.19, BUN 60. Patient has been started on tube feedings and blood sugars are now running high for which Levemir will be started at 10 units along with scale NovoLog. Brother is at the bedside and updated. He does state that patient return to smoking recently. Patient has been afebrile. 08/20: Patient remains in the intensive care unit, he is currently off propofol for the past 24 hours, he is more awake, he is following directions, he is most likely would be extubated today. 08/21: Patient was extubated yesterday he is spending better he is extremely weak , he denies any chest pain, he is less short of breath, he appears to be with increased edema and upper extremities abdomen and scrotum, discussed with nephrology adding Lasix 60 mg IV 1. 08/22: Check stat x-ray shows cardiomegaly persistent trace left pleural effusion and bibasilar airspace disease left greater than right similar to prior exam. Findings may represent decompensated congestive heart failure and confluent pulmonary edema at the longer bibasilar pneumonia and the appropriate setting. Dr. Louis discontinued Zosyn and Diflucan. Repeat BUN 64 and creatinine 3.40. Nephrology is suspecting renal failure to recover. IV fluids to continue D5W. One dose of Lasix was given yesterday for scrotal edema. Patient remains in intensive care unit. Patient is noted to be extremely weak. 08/23: Patient is now seen on the selective care unit. Repeat chest x-ray shows overall stable findings, cardiomegaly and chronic parenchymal change with persistent bibasilar atelectasis and/or infiltrate probable small bilateral pleural effusions are redemonstrated. Dr. Mcbride has recommended continuing IV Lasix 20 mg daily and increase hydralazine to 75 mg 3 times daily, maintain Grullon catheter. Patient's Grullon catheter was discontinued yesterday. He has required straight cath twice for greater than 1000 mL. And Grullon catheter is now in place. Pulse ox is 93% on room air. White count is 12.2, BUN 56 and creatinine 3.53. Plan for patient to start participating with physical therapy. 08/24: Patient is not eating much. He states hes not hungry and does not like the food. He is complaining of chronic back pain and Wartburg 5 will be resumed. Anticipate he will be ready to go to [facility] by Tuesday. Social work to follow up. Objective - Vital Signs Vital signs: Vital Signs Temp 98.2 F 08/24/17 08:00 Pulse 76 08/24/17 08:10 Resp 18 08/24/17 08:00 BP 162/74 08/24/17 08:00 Pulse Ox 99 08/24/17 08:00 Intake & Output 08/23/17 08/24/17 08/24/17 18:59 06:59 18:59 Intake Total 476 150 240 Output Total 1000 425 Balance -524 -168 240 Weight 82.5 kg Intake: Oral 476 150 240 Output: Urine 1000 425 Other: Voiding Method Indwelling Catheter Indwelling Catheter Indwelling Catheter # Bowel Movements 1 - Exam General appearance: cooperative, no acute distress, thin - EENT Eyes: anicteric sclerae, EOMI, PERRLA, dentition normal ENT: hard of hearing, NA/AT, normal oropharynx - Neck Neck: no lymphadenopathy, normal ROM, no other, no rigidity, no stridor, no thyromegaly - Respiratory Respiratory: bilateral: CTA, diminished, negative: dullness, rales, rhonchi, wheezing, prolonged expiration - Cardiovascular Rhythm: regular Heart sounds: normal: S1, S2 - Gastrointestinal General gastrointestinal: normal bowel sounds, soft - Integumentary Stage I decubitus ulcer sacrum Integumentary: decreased turgor, normal - Neurologic Neurologic: CNII-XII intact - Musculoskeletal Musculoskeletal: generalized weakness, strength equal bilaterally - Psychiatric Psychiatric: Patient is A and O x3, appropriate affect, intact judgment & insight - Labs CBC & Chem 7: 08/24/17 04:07 08/24/17 04:07 Labs: Abnormal Lab Results - Last 24 Hours (Table) 08/23/17 08/23/17 08/23/17 Range/Units 11:20 12:15 16:29 RBC (4.30-5.90) m/uL Hgb (13.0-17.5) gm/dL Hct (39.0-53.0) % BUN (9-20) mg/dL Creatinine (0.66-1.25) mg/dL Glucose (74-99) mg/dL POC Glucose (mg/dL) 164 H 195 H (75-99) mg/dL Calcium (8.4-10.2) mg/dL Urine Protein 2+ H (Negative) Urine Glucose (UA) Trace H (Negative) Urine Blood Small H (Negative) Ur Leukocyte Esterase Large H (Negative) Urine RBC 10 H (0-5) /hpf Urine WBC >182 H (0-5) /hpf Urine WBC Clumps Many H (None) /hpf 08/23/17 08/24/17 08/24/17 Range/Units 20:53 04:07 04:07 RBC 3.76 L (4.30-5.90) m/uL Hgb 10.8 L (13.0-17.5) gm/dL Hct 32.2 L (39.0-53.0) % BUN 49 H (9-20) mg/dL Creatinine 2.90 H (0.66-1.25) mg/dL Glucose 135 H (74-99) mg/dL POC Glucose (mg/dL) 138 H (75-99) mg/dL Calcium 7.8 L (8.4-10.2) mg/dL Urine Protein (Negative) Urine Glucose (UA) (Negative) Urine Blood (Negative) Ur Leukocyte Esterase (Negative) Urine RBC (0-5) /hpf Urine WBC (0-5) /hpf Urine WBC Clumps (None) /hpf 08/24/17 Range/Units 05:43 RBC (4.30-5.90) m/uL Hgb (13.0-17.5) gm/dL Hct (39.0-53.0) % BUN (9-20) mg/dL Creatinine (0.66-1.25) mg/dL Glucose (74-99) mg/dL POC Glucose (mg/dL) 157 H (75-99) mg/dL Calcium (8.4-10.2) mg/dL Urine Protein (Negative) Urine Glucose (UA) (Negative) Urine Blood (Negative) Ur Leukocyte Esterase (Negative) Urine RBC (0-5) /hpf Urine WBC (0-5) /hpf Urine WBC Clumps (None) /hpf Microbiology - Last 24 Hours (Table) 08/23/17 12:15 Urine Culture - Preliminary Urine,Catheterized Assessment and Plan Plan: 1. Metabolic encephalopathy with sepsis of unclear source aspiration pneumonia and UTI and possible evolving stroke is another etiology. Continue Zosyn and Diflucan. Wartburg discontinued. Status post LP. Consult with Dr. Presley and Dr. Louis. 2. Acute hypoxic respiratory failure requiring intubation and mechanical ventilation that is successfully extubated. Continue with aggressive pulmonary toileting, monitor the patient very closely. 3. Elevated troponin, secondary to sepsis without evidence of acute coronary syndrome. 4. Acute kidney injury secondary to ATN secondary to sepsis and hemodynamic instability with chronic kidney disease stage III. Patient is followed by nephrology. 5. Arrhythmia history with prior Nonsustained ventricular tachycardia on 2015 H and was seen by cardiology echocardiogramJuly 2016 showed atrial fibrillation with small pericardial effusion noted ejection fraction 45-50% inferolateral hypokinesis with palpation of LA size over 40. Electrolyte management is optimized 6. History bilateral hydronephrosis mild, improved from last ultrasound history Phimosis with urinary retention resolved monitor for urinary retention continue tamsulosin 7. CAD post CABG. continue aspirin 81 mg orally once every day, 8. Diabetes mellitus type II: Has been on Lantus at 20 units at bedtime along with pre-meal however with the sugars being low, and Lantus on hold , NovoLog sliding scale, current sugars are low 9. Hypertensive cardiovascular disease. Clonidine patch increased, hydralazine 20 mg IV push every 6 hours as needed. 10. Hyperlipidemia: Currently off statin. 11. Chronic A. fib. Patient is no longer on Coumadin. This may be related to risk of falls. 12. Acute on chronic systolic and possible diastolic heart failure. Lasix ordered on a daily basis 12. Recurrent depression: Has been on Paxil 40 mg daily resumed at 10 mg daily.Xanax at bedtime--discontinued 13. Seizure history: Has been on Keppra 750 g twice a day with no new seizure activity. Keppra changed to IV. 14. BPH: Resume Flomax. Grullon catheter 15. Severe GERD: Will add Protonix 40 mg daily 16. Rhabdomyolysis, hold Lipitor 17. Sacral decubitus stage I secondary to prolonged immobilization , overlay mattress and frequent turning 18. Hypernatremia. Nephrology is following. 19. Severe protein calorie malnutrition due to lack of oral intake. Dietitian consult requested. 20. Chronic low back pain. Wartburg 5 three times daily as needed resumed. Discharge plan: Subacute rehab Impression and plan of care have been directed as dictated by the signing physician. Carly Greene nurse practitioner acting as scribe for signing physician.
--- NOTE | 2017-08-24 11:54 | PN ---
PROGRESS NOTE DATE OF SERVICE: 08/24/2017 REASON FOR FOLLOWUP: Aspiration pneumonia and UTI. INTERVAL HISTORY: The patient is afebrile. He seemed to be more awake, alert and he is breathing comfortably. Denies having any chest pain, occasional cough and not bringing up any sputum. No abdominal pain and no diarrhea. PHYSICAL EXAMINATION: Blood pressure 162/74, pulse of 64, temperature 98.2. He is 99% on 2 L nasal cannula. General description is an elderly male, lying in bed in no distress. RESPIRATORY SYSTEM: Unlabored breathing with some coarse breath sounds at the base, no wheeze. HEART: S1, S2. Regular rate and rhythm. ABDOMEN: Soft, no tenderness. LABS: Hemoglobin 10.8, white count of 9.8. Urine yesterday, still positive. DIAGNOSTIC IMPRESSION AND PLAN: Patient with leukocytosis, multifactorial. The patient did have a possible aspiration pneumonitis and urinary tract infection. Patient's white count has normalized. Urine was slightly positive. Will follow up repeat cultures. Continue repeat his Bactrim and Diflucan At this point, continue supportive care. MMODL / IJN: [id number] /
[2017-08-24 12:14] LABS: Glucose,Whole Blood 201 mg/dL (75-99)
[2017-08-24] MEDS: HYDROcodone/APAP 5-325MG 1 EACH TAB PO PRN ×2 (12:36→18:49)
[2017-08-24 17:18] LABS: Glucose,Whole Blood 170 mg/dL (75-99)
[2017-08-24] MEDS: FLUCONAZOLE 100 MG TAB PO SCH (17:22)
[2017-08-24] MEDS: TAMSULOSIN 0.4 MG CAP.ER.24H PO SCH (17:23)
[2017-08-24] MEDS: ENOXAPARIN 30 MG/0.3 ML SYRINGE SQ SCH (17:23)
[2017-08-24] MEDS: cloNIDine 0.3 MG/24HR PATCH 1 PATCH PATCH TRANSDERM SCH (18:54)
[2017-08-24 18:56] LABS: Iron Saturation 14.14 (15.00-50.00)
--- NOTE | 2017-08-24 20:26 | PN ---
PROGRESS NOTE Patient is seen for followup for acute kidney injury. He is currently resting comfortably. Patient is maintained on a small dose of IV Lasix at 20 mg IV daily. His renal function is slightly improved. On examination, blood pressure is 169/82, heart rate 55 per minute. Patient is afebrile. EXAMINATION OF THE HEART: S1, S2. EXAMINATION OF LUNGS: Bilateral breath sounds are heard. ABDOMEN: Soft, non-tender. Examination of lower extremities shows trace edema bilaterally. [employer] exam is grossly intact. Labs show sodium 139, potassium 3.5, chloride 106, BUN 49, serum creatinine 2.9, hemoglobin 10.8 g/dL. ASSESSMENT: 1. Acute kidney injury, acute tubular necrosis, non-oliguric, with some improvement in renal function. Continue with the current dose of IV Lasix. 2. Chronic kidney disease, stage III, with baseline creatinine about 1.2 mg/dL secondary to diabetic nephropathy. 3. Urine retention with indwelling Grullon catheter. 4. Sepsis from pneumonia and urinary tract infection. 5. Urinary tract infection with urine culture growing yeast. 6. History of atrial fibrillation. 7. Metabolic acidosis, maintained on sodium bicarb. PLAN: Encourage increased oral intake. May continue with current dose of Lasix. Replace potassium. Check iron studies. MMODL / IJN: [id number] /
[2017-08-24 20:30] LABS: Glucose,Whole Blood 80 mg/dL (75-99)
[2017-08-24] MEDS: MONTELUKAST 10 MG TAB PO SCH (21:23)
[2017-08-25 03:27] LABS: Glucose,Whole Blood 83 mg/dL (75-99)
[2017-08-25] MEDS: hydrALAZINE HCL 20 MG/ML 1 ML VIAL IVP PRN (03:46)
[2017-08-25] MEDS: PIPERACILLIN-TAZOBACTAM 3.375 GM in DEXTROSE/WATER 1 50ML.BAG IVPB SCH ×3 (06:15→23:09)
[2017-08-25] MEDS: IPRATROPIUM-ALBUTEROL 3 ML NEB INHALATION SCH ×4 (06:55→19:30)
[2017-08-25 07:18] LABS: Glucose,Whole Blood 85 mg/dL (75-99)
[2017-08-25] MEDS: INSULIN ASPART 100 UNIT/ML 1 ML 10 ML VIAL SQ SCH ×4 (07:22→20:38)
[2017-08-25] MEDS: PANTOPRAZOLE 40 MG TABLET PO SCH (08:26)
[2017-08-25] MEDS: levETIRAcetam 250 MG TAB PO SCH ×2 (08:27→20:30)
[2017-08-25] MEDS: PARoxetine 10 MG TAB PO SCH (08:27)
[2017-08-25] MEDS: INSULIN DETEMIR 100 UNIT/ML 10 ML VIAL SQ SCH (08:27)
[2017-08-25] MEDS: METOPROLOL TARTRATE 25 MG TAB PO SCH ×2 (08:27→20:30)
[2017-08-25] MEDS: SODIUM BICARBONATE TAB 650 MG TAB PO SCH ×2 (08:27→20:31)
[2017-08-25] MEDS: hydrALAZINE HCL 25 MG TAB PO SCH (08:27)
[2017-08-25] MEDS: FUROSEMIDE 10 MG/ML 2 ML VIAL IV SCH (08:47)
[2017-08-25 09:47] LABS: HCT 33.7 % (39.0-53.0); HGB 11.2 gm/dL (13.0-17.5); MCH 28.3 pg (25.0-35.0); MCHC 33.2 g/dL (31.0-37.0); MCV 85.1 fL (80.0-100.0); Platelet Count 200 k/uL (150-450); RBC 3.96 m/uL (4.30-5.90); RDW 14.9 % (11.5-15.5); WBC 10.4 k/uL (3.8-10.6)
[2017-08-25 10:32] LABS: Calcium 7.8 mg/dL (8.4-10.2); Magnesium 1.7 mg/dL (1.6-2.3); Potassium 3.6 mmol/L (3.5-5.1)
--- NOTE | 2017-08-25 11:04 | P.PN ---
Subjective Progress Note Date: 08/25/17 Principal diagnosis: Acute hypoxic respiratory failure secondary to sepsis and pneumonia. On 08/23/2017 patient seen in follow-up on selective care unit. He is resting comfortably in bed, denies any acute distress. Lung sounds are clear to auscultation, patient remains in atrial fibrillation, and his rate is controlled , he is on room air, and his pulse ox is 93%. He is afebrile, patient is generally weak. Patient's renal profile seems to be worsening, his BUN is up to 56, creatinine is 3.53. Today's chest x-ray shows cardiomegaly, bibasilar atelectasis and small bilateral pleural effusions. Nephrology and ID service are following 08/24/2017 patient seen in follow-up on selective care unit. He is resting in bed, denies any acute distress. He states his biggest complaint is lack of energy, and fatigue. Denies any dyspnea, denies any chest pain. On yesterday' s chest x-ray there were stable findings, of cardiomegaly and bibasilar atelectasis, and small bilateral pleural effusions. Patient remains on 2 L per nasal cannula, with O2 sat at 99%, this can probably be further wean down. Patient is afebrile, hemodynamically stable. Respirations are even and nonlabored. Lung sounds are clear to auscultation. Labs are negative for any evidence of leukocytosis, hemoglobin is 10.8, his renal profile is improving, electrolytes are within normal limits. Patient remains stable from pulmonary standpoint. The patient is seen again today 08/25/2017 in follow-up on the regular medical floor. He is currently seen resting quite comfortably in bed. He still has some loose nonproductive cough. He remains quite weak. He is maintaining good O2 saturations in the 90s on 2 L/m per nasal cannula. He remains afebrile. No leukocytosis. Hemoglobin 11.2. Creatinine 2.42. He remains in a negative balance. Objective - Vital Signs Vital signs: Vital Signs Temp 98.4 F 08/25/17 05:21 Pulse 62 08/25/17 10:49 Resp 17 08/25/17 05:21 BP 179/80 08/25/17 05:21 Pulse Ox 93 L 08/25/17 06:58 Intake & Output 08/24/17 08/25/17 08/25/17 18:59 06:59 18:59 Intake Total 420 50 Output Total 1100 1200 Balance -680 -1150 Weight 82.5 kg Intake: Oral 420 50 Output: Urine 1100 1200 Other: Voiding Method Indwelling Catheter Indwelling Catheter Indwelling Catheter # Bowel Movements 1 - Exam No acute distress. Oriented 2. No nasal O2 at this time. HEENT examination is grossly unremarkable. Mucous membranes are moist. No oral lesions. Neck supple. Full range of motion. No adenopathy thyromegaly or neck vein distention. Cardiovascular examination reveals regular rhythm rate. S1-S2 normal. No S3 or S4. No discernible murmur noted. Lungs reveal clear lung sounds Abdomen soft bowel sounds are heard. No masses or tenderness. Extremities are intact. No cyanosis clubbing, there is mild bilateral upper and lower extremity edema Skin is without rash or lesion. Neurologic examination is nonfocal. - Labs CBC & Chem 7: 08/25/17 08:30 08/25/17 08:30 Labs: Abnormal Lab Results - Last 24 Hours (Table) 08/24/17 08/24/17 08/24/17 Range/Units 04:07 11:46 16:36 RBC (4.30-5.90) m/uL Hgb (13.0-17.5) gm/dL Hct (39.0-53.0) % BUN (9-20) mg/dL Creatinine (0.66-1.25) mg/dL POC Glucose (mg/dL) 201 H 170 H (75-99) mg/dL Calcium (8.4-10.2) mg/dL Iron 27 L (65-175) ug/dL TIBC 191 L (228-460) ug/dL Iron Saturation 14.14 L (15.00-50.00) 08/25/17 08/25/17 Range/Units 08:30 08:30 RBC 3.96 L (4.30-5.90) m/uL Hgb 11.2 L (13.0-17.5) gm/dL Hct 33.7 L (39.0-53.0) % BUN 43 H (9-20) mg/dL Creatinine 2.42 H (0.66-1.25) mg/dL POC Glucose (mg/dL) (75-99) mg/dL Calcium 7.8 L (8.4-10.2) mg/dL Iron (65-175) ug/dL TIBC (228-460) ug/dL Iron Saturation (15.00-50.00) Assessment and Plan Assessment: Assessment: Acute hypoxemic respiratory failure secondary to sepsis and pneumonia. Intubation with mechanical ventilation for acute hypoxemic respiratory failure, with extubation on August 20. Acute urinary tract infection with sepsis Acute on chronic nonoliguric renal failure secondary to ATN, improving Stage III chronic kidney disease Acute hypernatremia Acute metabolic acidosis secondary to sepsis and renal failure. Protein calorie malnutrition History of chronic atrial fibrillation History of CAD with previous bypass grafting Diastolic heart failure. Metabolic encephalopathy secondary to sepsis History of seizure disorder Plan: The patient is seen and evaluated by Dr. Baron. He continues to be quite weak and debilitated. He has a weak cough. We'll order a swallow evaluation. Aspiration precautions. CODE STATUS should be addressed. We will follow the patient on as-needed basis. I, the cosigning physician, performed a history & physical examination of the patient. Lungs sounds with a few scattered rhonchi. Maintaining good O2 saturations in the 90s on 2 L/m per nasal cannula. I discussed the assessment and plan of care with my nurse practitioner, Shruti Thrasher. I attest to the above note as dictated by her.
[2017-08-25 12:05] VITALS: BMI 26.1
[2017-08-25 12:30] LABS: Glucose,Whole Blood 138 mg/dL (75-99)
--- NOTE | 2017-08-25 13:03 | PN ---
PROGRESS NOTE DATE OF SERVICE: 08/25/2017 REASON FOR FOLLOWUP: Possible aspiration pneumonia and UTI. INTERVAL HISTORY: The patient is afebrile. He is currently breathing comfortably. Denies having any chest pain. No cough, no abdominal pain or any diarrhea. PHYSICAL EXAMINATION: Blood pressure is 132/83 with a pulse of 60, temperature 98.4. He is 95% on 2 L nasal cannula. General description is an elderly male, lying in bed in no distress. RESPIRATORY SYSTEM: Unlabored breathing with decreased breath sounds at the base, no wheeze. HEART: S1, S2. Regular rate and rhythm. ABDOMEN: Soft, no tenderness. LABS: Hemoglobin 11.1, white count 10.4, BUN of 43, creatinine 2.42. DIAGNOSTIC IMPRESSION AND PLAN: Patient with leukocytosis, multifactorial with a component of possible aspiration pneumonia urinary tract infection. Currently on Zosyn and Diflucan. The patient's white count has normalized. Will keep on these antibiotics for now for significant function. Clinical course closely. Continue supportive care. MMODL / IJN: [id number] /
--- NOTE | 2017-08-25 13:14 | P.PN ---
Subjective Patient is seen in follow-up for acute kidney injury. His creatinine in May 2016 was near 1.2. This admission his creatinine was 2.5 and peaked at 3.5 as of August 13 - 2.42 today. He has a Grullon catheter in place for urinary retention. He is nonoliguric. Currently resting in bed. Oral intake has improved. Feels weak. Vital signs are stable. General: The patient appeared well nourished and normally developed. Currently intubated. HEENT: Head exam is unremarkable. Neck is without jugular venous distension. LUNGS: Lungs are clear to auscultation and percussion. Breath sounds decreased. HEART: Rate and Rhythm are regular. First and second heart sounds normal. No murmurs, rubs or gallops. ABDOMEN: Abdominal exam reveals normal bowel sounds. Non-tender and non- distended. No evidence of peritonitis. EXTREMITITES: No clubbing, cyanosis, or edema. Objective - Vital Signs Vital signs: Vital Signs Temp 98.4 F 08/25/17 05:21 Pulse 62 08/25/17 10:49 Resp 17 08/25/17 05:21 BP 179/80 08/25/17 05:21 Pulse Ox 93 L 08/25/17 06:58 Intake & Output 08/24/17 08/25/17 08/25/17 18:59 06:59 18:59 Intake Total 420 50 Output Total 1100 1200 Balance -680 -1150 Weight 82.5 kg 82.5 kg Intake: Oral 420 50 Output: Urine 1100 1200 Other: Voiding Method Indwelling Catheter Indwelling Catheter Indwelling Catheter # Bowel Movements 1 - Labs CBC & Chem 7: 08/25/17 08:30 08/25/17 08:30 Labs: Abnormal Lab Results - Last 24 Hours (Table) 08/24/17 08/24/17 08/25/17 Range/Units 04:07 16:36 08:30 RBC 3.96 L (4.30-5.90) m/uL Hgb 11.2 L (13.0-17.5) gm/dL Hct 33.7 L (39.0-53.0) % BUN (9-20) mg/dL Creatinine (0.66-1.25) mg/dL POC Glucose (mg/dL) 170 H (75-99) mg/dL Calcium (8.4-10.2) mg/dL Iron 27 L (65-175) ug/dL TIBC 191 L (228-460) ug/dL Iron Saturation 14.14 L (15.00-50.00) 08/25/17 08/25/17 Range/Units 08:30 12:27 RBC (4.30-5.90) m/uL Hgb (13.0-17.5) gm/dL Hct (39.0-53.0) % BUN 43 H (9-20) mg/dL Creatinine 2.42 H (0.66-1.25) mg/dL POC Glucose (mg/dL) 138 H (75-99) mg/dL Calcium 7.8 L (8.4-10.2) mg/dL Iron (65-175) ug/dL TIBC (228-460) ug/dL Iron Saturation (15.00-50.00) Assessment and Plan Plan: Assessment: #1. Nonoliguric acute kidney injury secondary to ATN secondary to sepsis and hemodynamic instability. Further worsened with the use of diuretics and STACEY inhibitor. Creatinine is 2.5 on admission and peaked at 3.53 on 08/23/17 - 2.42 today. No evidence of hydronephrosis noted on renal ultrasound. UPC 2.8. Urine eosinophils negative. Rule out GN - serologies have been negative. #2. 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 #3. Urinary retention status post Grullon catheter placement. #4. Hypertension with chronic kidney disease. Blood pressures slightly on the higher side. #5. Insulin-dependent diabetes mellitus. #6. Sepsis with likely source being pneumonia. UTI also of concern - urine culture positive for yeast. Maintained on IV antibiotics. #7. History of coronary artery disease status post CABG. #8. History of atrial fibrillation. Cardiology following. #9. Protein calorie malnutrition. #10. Diastolic CHF. #11. Metabolic acidosis secondary to acute kidney injury and IV fluids, maintained on oral sodium bicarbonate. #12. Hypernatremia secondary to lack of oral water intake. Improved. #13. Altered mental status. Concern for acute CVA. Neurology following. Plan: Continue Lasix 20 mg IV daily. Encouraged oral intake. Increase hydralazine to 100 mg 3 times daily. Hold antihypertensives for systolic blood pressure less than 120. Maintain Grullon catheter. Repeat electrolytes in the morning.
[2017-08-25] MEDS: hydrALAZINE HCL 50 MG TAB PO SCH ×3 (14:07→20:31)
--- NOTE | 2017-08-25 14:41 | P.PN ---
Subjective Progress Note Date: 08/25/17 This is a 71-year-old male one of Dr. Lucas Gallo's patient with past medical history of hypertension, hyperlipidemia, diabetes, COPD, ,CHF , alcoholism and worsening heart failure who had open heart surgery with the CABG 2015 ended up having multiple complications and the multiple rehospitalization for worsening shortness of breath, A. fib and other complication. He was last hospitalized on 05/06/2016 at which time he was here for bradycardia and beta kojo was discontinued. He was sent in after neighbor found him in bed very weak, apparently patient has not gotten out of bed for 2 days. The neighbor checks on him on a daily basis, however on her return trip, he hasn't moved out of bed and has soiled himself stooled himself, and hasn't eaten for approximately 48 hours. Patient has difficulty in getting out of bed difficulty ambulating, his son who normally is sees constantly complaining at home, apparently admitted hospital hence no one was caring for the patient except for a visit from a neighbor. Patient has had cough, some wheezing, stiffness of the joint, difficulty in ambulating, patient hasn't had his medications for 2 days as well 08/12: Echocardiogram reveals EF of 50-55% with moderate concentric left ventricular hypertrophy, LA severely dilated at greater than 40, are appears enlarged, mild mitral calcification, mild mitral regurgitation, mild tricuspid regurgitation. Patient has been seen and evaluated by cardiology. Beta kojo was not started due to history of symptomatic bradycardia. Aspirin 81 mg was added. Patient no longer on Coumadin most likely due to risk of bleeding. White count is improved to 20.1. BUN is 63 and creatinine 2.8. TSH is 2.940. Patient is decreased mental status today. Staff was unable to feed him today. His blood pressure is stable. Ravenel will be changed to half a tablet which is 2.5 mg 3 times daily as needed. Keppra level will be checked in the morning as well as EEG ordered. Patient has been afebrile. PT has recommended subacute rehab. 08/13: Patient improved slightly yesterday evening where he was able to tolerate his dinner and he ate 80% of his dinner. Patient today is still lethargic but open his eyes to voice command following simple commands like moving his extremities up and down 08/14: Patient continued to have adequate urine output with a slight improvement in kidney function. Patient is improved from the mental status standpoint where he is more awake and following simple commands but looks lethargic overall. No major events reported by nursing staff 08/15: Patient was evaluated today, he underwent abdominal/bladder ultrasound, exam revealed limited exam but otherwise normal. Cardiology on consult, who discontinued his amlodipine do to hypotension. Blood pressure did improve to 132/67 today. Creatinine function slightly increased from previous, today 3.3, nephrology consult, recommends to continue with IV hydration, continue to hold lisinopril Lasix. Blood cultures show no growth to date. 08/16: Patient is still lethargic for nurse. Speech therapy has evaluated and made him nothing by mouth as he is too lethargic to eat. Keppra and Protonix changed to IV. Clonidine patch added for blood pressure control. He is continued on IV fluids at 75 mL per hour. Oral medications have been discontinued until patient is more alert. Creatinine is 3.25. Last bowel movement was 2 days ago. He has had good urine output. Repeat urinalysis shows signs of infection and patient is already on Zosyn. Consult with neurology added. 08/17: Patient has been seen by Dr. Presley with thought that metabolic encephalopathy secondary to sepsis and renal failure. CT of the brain revealed no acute intracranial hemorrhage or midline shift. No acute intracranial process. Multifocal lacunar injuries old-appearing old. Diffuse age-related triple atrophy and chronic small vessel ischemic change. Patient remains essentially unresponsive. Clonidine was increased last evening for high blood pressure. Due to elevated sodium IV fluids will be switched to D5W at 75 mL per hour. NG tube to be placed for tube feedings and consult with dietitian. 08/18: Chest x-ray revealed bilateral infiltrate and pleural effusions correlate for heart failure. NG tube in the left upper quadrant likely within the stomach. Patient was seen by Dr. Louis without the UTI could be underlying etiology for metabolic encephalopathy and possible pneumonitis. He requested anesthesia to perform LP and continue Zosyn. Diagnostic LP was done by Dr. Ulrich with return of clear spinal fluid. EEG did not reveal any seizure activity. There is been no seizure activity during this hospitalization. Dr. Presley did order MRI of the brain. A repeat chest x-ray this morning reveals congestive heart failure with small pleural effusions. Decreased pleural fluid on the left side. CT of the brain revealed possible evolving acute subacute infarct internal capsule on the right. Subsequent increase in size compared to prior study. Repeat chest x-ray shows new endotracheal tube. Similar interstitial prominence. Mild basilar opacities mostly on the left side. Mildly decreased. Dr. Mcbride as ordered 1 dose of IV Lasix 40 mg today. Last evening, patient' s blood pressure was elevated and [facility] was able to give labetalol. Patient said that a drop in his blood pressure. Patient was transferred to the intensive care unit last evening and consult with Dr. Robles was added. He was intubated at 4 this morning and remains intubated and on mechanical ventilation. Blood pressure has remained on the high side. Patient did not require vasopressors. White count went up to 20.2 sodium is 150, BUN 57 creatinine 3.1. Currently, sedation is off and patient is unresponsive. CODE STATUS was discussed with the patient's son yesterday afternoon/evening and he wanted the patient to remain full code. 08/19: Patient remains in intensive care unit on mechanical ventilation. He was given Lasix 40 mg once this morning. Chest x-ray this morning shows stable findings, persistent mild central vascular congestion and small bilateral pleural effusions with associated left basilar atelectasis and/or infiltrate. D5W was discontinued. Labetalol discontinued due to bradycardia and hydralazine added. According to Dr. Mcbride, family is okay with proceeding with dialysis. Sodium is 145, creatinine 3.19, BUN 60. Patient has been started on tube feedings and blood sugars are now running high for which Levemir will be started at 10 units along with scale NovoLog. Brother is at the bedside and updated. He does state that patient return to smoking recently. Patient has been afebrile. 08/20: Patient remains in the intensive care unit, he is currently off propofol for the past 24 hours, he is more awake, he is following directions, he is most likely would be extubated today. 08/21: Patient was extubated yesterday he is spending better he is extremely weak , he denies any chest pain, he is less short of breath, he appears to be with increased edema and upper extremities abdomen and scrotum, discussed with nephrology adding Lasix 60 mg IV 1. 08/22: Check stat x-ray shows cardiomegaly persistent trace left pleural effusion and bibasilar airspace disease left greater than right similar to prior exam. Findings may represent decompensated congestive heart failure and confluent pulmonary edema at the longer bibasilar pneumonia and the appropriate setting. Dr. Louis discontinued Zosyn and Diflucan. Repeat BUN 64 and creatinine 3.40. Nephrology is suspecting renal failure to recover. IV fluids to continue D5W. One dose of Lasix was given yesterday for scrotal edema. Patient remains in intensive care unit. Patient is noted to be extremely weak. 08/23: Patient is now seen on the selective care unit. Repeat chest x-ray shows overall stable findings, cardiomegaly and chronic parenchymal change with persistent bibasilar atelectasis and/or infiltrate probable small bilateral pleural effusions are redemonstrated. Dr. Mcbride has recommended continuing IV Lasix 20 mg daily and increase hydralazine to 75 mg 3 times daily, maintain Grullon catheter. Patient's Grullon catheter was discontinued yesterday. He has required straight cath twice for greater than 1000 mL. And Grullon catheter is now in place. Pulse ox is 93% on room air. White count is 12.2, BUN 56 and creatinine 3.53. Plan for patient to start participating with physical therapy. 08/24: Patient is not eating much. He states hes not hungry and does not like the food. He is complaining of chronic back pain and Ravenel 5 will be resumed. Anticipate he will be ready to go to [facility] by Tuesday. Social work to follow up. 08/25: Nephrology recommends continuing the Lasix at 20 mg IV daily, increase hydralazine to 100 mg 3 times daily and maintain Grullon catheter. Renal function is improving with BUN 43 and creatinine of 2.42. He remains on Zosyn and Diflucan as recommended by Dr. Louis. Patient continues to have generalized weakness. Anticipate discharge possibly by tomorrow. Objective - Vital Signs Vital signs: Vital Signs Temp 98.4 F 08/25/17 05:21 Pulse 60 08/25/17 07:07 Resp 17 08/25/17 05:21 BP 179/80 08/25/17 05:21 Pulse Ox 93 L 08/25/17 06:58 Intake & Output 08/24/17 08/25/17 08/25/17 18:59 06:59 18:59 Intake Total 420 50 Output Total 1100 1200 Balance -680 -1150 Weight 82.5 kg Intake: Oral 420 50 Output: Urine 1100 1200 Other: Voiding Method Indwelling Catheter Indwelling Catheter Indwelling Catheter # Bowel Movements 1 - Exam General appearance: cooperative, no acute distress, thin - EENT Eyes: anicteric sclerae, EOMI, PERRLA, dentition normal ENT: hard of hearing, NA/AT, normal oropharynx - Neck Neck: no lymphadenopathy, normal ROM, no other, no rigidity, no stridor, no thyromegaly - Respiratory Respiratory: bilateral: CTA, diminished, negative: dullness, rales, rhonchi, wheezing, prolonged expiration - Cardiovascular Rhythm: regular Heart sounds: normal: S1, S2 - Gastrointestinal General gastrointestinal: normal bowel sounds, soft - Integumentary Stage I decubitus ulcer sacrum Integumentary: decreased turgor, normal - Neurologic Neurologic: CNII-XII intact - Musculoskeletal Musculoskeletal: generalized weakness, strength equal bilaterally - Psychiatric Psychiatric: Patient is A and O x3, appropriate affect, intact judgment & insight - Labs CBC & Chem 7: 08/25/17 08:30 08/25/17 08:30 Labs: Abnormal Lab Results - Last 24 Hours (Table) 08/24/17 08/24/17 08/24/17 Range/Units 04:07 11:46 16:36 POC Glucose (mg/dL) 201 H 170 H (75-99) mg/dL Iron 27 L (65-175) ug/dL TIBC 191 L (228-460) ug/dL Iron Saturation 14.14 L (15.00-50.00) Assessment and Plan Plan: 1. Metabolic encephalopathy with sepsis of unclear source aspiration pneumonia and UTI and possible evolving stroke is another etiology. Continue Zosyn and Diflucan. Ravenel discontinued. Status post LP. Consult with Dr. Presley and Dr. Louis. 2. Acute hypoxic respiratory failure requiring intubation and mechanical ventilation that is successfully extubated. Continue with aggressive pulmonary toileting, monitor the patient very closely. 3. Elevated troponin, secondary to sepsis without evidence of acute coronary syndrome. 4. Acute kidney injury secondary to ATN secondary to sepsis and hemodynamic instability with chronic kidney disease stage III. Patient is followed by nephrology. IV Lasix daily. 5. Arrhythmia history with prior Nonsustained ventricular tachycardia on 2015 H and was seen by cardiology echocardiogramJuly 2016 showed atrial fibrillation with small pericardial effusion noted ejection fraction 45-50% inferolateral hypokinesis with palpation of LA size over 40. Electrolyte management is optimized 6. History bilateral hydronephrosis mild, improved from last ultrasound history Phimosis with urinary retention resolved monitor for urinary retention continue tamsulosin 7. CAD post CABG. continue aspirin 81 mg orally once every day, 8. Diabetes mellitus type II: Has been on Lantus at 20 units at bedtime along with pre-meal however with the sugars being low, and Lantus on hold , NovoLog sliding scale, current sugars are low 9. Hypertensive cardiovascular disease. Clonidine patch increased, hydralazine 100 mg 3 times daily, Lopressor 25 mg twice daily, hydralazine 20 mg IV push every 6 hours as needed. 10. Hyperlipidemia: Currently off statin. 11. Chronic A. fib. Patient is no longer on Coumadin. This may be related to risk of falls. 12. Acute on chronic systolic and possible diastolic heart failure. Lasix ordered on a daily basis 12. Recurrent depression: Has been on Paxil 40 mg daily resumed at 10 mg daily.Xanax at bedtime--discontinued 13. Seizure history: Has been on Keppra 750 g twice a day with no new seizure activity. Keppra changed to IV. 14. BPH: Resume Flomax. Grullon catheter 15. Severe GERD: Will add Protonix 40 mg daily 16. Rhabdomyolysis, hold Lipitor 17. Sacral decubitus stage I secondary to prolonged immobilization , overlay mattress and frequent turning 18. Hypernatremia. Nephrology is following. 19. Severe protein calorie malnutrition due to lack of oral intake. Dietitian consult requested. 20. Chronic low back pain. Ravenel 5 three times daily as needed resumed. Discharge plan: Subacute rehab Impression and plan of care have been directed as dictated by the signing physician. Carly Greene nurse practitioner acting as scribe for signing physician.
[2017-08-25] MEDS: FLUCONAZOLE 100 MG TAB PO SCH (15:45)
[2017-08-25 17:09] LABS: Glucose,Whole Blood 117 mg/dL (75-99)
[2017-08-25] MEDS: ENOXAPARIN 30 MG/0.3 ML SYRINGE SQ SCH (17:10)
[2017-08-25] MEDS: TAMSULOSIN 0.4 MG CAP.ER.24H PO SCH (17:10)
[2017-08-25] MEDS: MONTELUKAST 10 MG TAB PO SCH (20:31)
[2017-08-25 20:35] LABS: Glucose,Whole Blood 107 mg/dL (75-99)
[2017-08-26 06:09] VITALS: BP 160/77; TEMP 98
[2017-08-26 07:06] LABS: Glucose,Whole Blood 81 mg/dL (75-99)
[2017-08-26] MEDS: INSULIN ASPART 100 UNIT/ML 1 ML 10 ML VIAL SQ SCH ×2 (07:24→12:35)
[2017-08-26] MEDS: hydrALAZINE HCL 50 MG TAB PO SCH (08:06)
[2017-08-26] MEDS: PANTOPRAZOLE 40 MG TABLET PO SCH (08:06)
[2017-08-26] MEDS: METOPROLOL TARTRATE 25 MG TAB PO SCH (08:07)
[2017-08-26] MEDS: levETIRAcetam 250 MG TAB PO SCH (08:07)
[2017-08-26] MEDS: INSULIN DETEMIR 100 UNIT/ML 10 ML VIAL SQ SCH (08:07)
[2017-08-26] MEDS: PIPERACILLIN-TAZOBACTAM 3.375 GM in DEXTROSE/WATER 1 50ML.BAG IVPB SCH (08:07)
[2017-08-26] MEDS: PARoxetine 10 MG TAB PO SCH (08:07)
[2017-08-26] MEDS: SODIUM BICARBONATE TAB 650 MG TAB PO SCH (08:07)
[2017-08-26] MEDS: IPRATROPIUM-ALBUTEROL 3 ML NEB INHALATION SCH ×3 (08:30→16:05)
[2017-08-26 08:46] VITALS: RESP 16
[2017-08-26] MEDS: FUROSEMIDE 10 MG/ML 2 ML VIAL IV SCH (08:56)
[2017-08-26 09:00] LABS: Calcium 7.5 mg/dL (8.4-10.2); Potassium 3.5 mmol/L (3.5-5.1)
--- NOTE | 2017-08-26 10:03 | P.PN ---
Subjective Progress Note Date: 08/26/17 Principal diagnosis: Acute hypoxic respiratory failure secondary to sepsis and pneumonia Progress note dated 08/20/2017 71-year-old male with a history of acute hypoxemic respiratory failure requiring intubation and mechanical ventilation, secondary to sepsis likely from pneumonia. The patient was intubated on August 17. He remains on the ventilator to this date. Chest x-ray looks stable. He came in with mental status changes, sepsis and possible CVA. The patient's current vent settings are the volume assist control mode, rate of 16, tidal volume 450, FiO2 of 35% to be reduced to 25% and PEEP of 5. Arterial blood gases show a PaO2 of 140 a PaCO2 43 and a pH of 7.33. He is receiving a saline IV at KVO and tube feeds haven't a rate of 40 mL per hour with a goal of 40 mL an hour. Chest x-ray looks okay. The patient will have a spontaneous breathing trial today. It appears that his weaning parameters are reasonable on PSV of 5 and CPAP of 5. We'll make sure we do a cuff leak. He may benefit and tolerate extubation. Progress note dated 12/21/2017 71-year-old male who was actually extubated from mechanical ventilation yesterday on August 20. He has a history of acute hypoxemic respiratory failure which required intubation and mechanical ventilation, likely secondary to sepsis and pneumonia. The patient was intubated on the and extubated on the . He is doing relatively well today. Chest x-ray stable. He is currently on a liter or 2 of oxygen. His IV is half-normal saline at 75 mL an hour. The patient otherwise is doing relatively well. He did extremely well with his spontaneous breathing trial in his weaning parameters are excellent. The patient's feeling well today. No major complaints. Seems more awake and alert. Seem stronger as well. Patient has a history of acute urinary tract infection with sepsis hypoxemic respiratory failure acute on chronic nonoliguric renal failure secondary to ATN stage III chronic kidney disease hypernatremia metabolic acidosis protein/calorie malnutrition chronic atrial fibrillation CAD with previous bypass grafting diastolic heart failure and metabolic encephalopathy. On 08/22/2017 patient seen in follow-up in the intensive care unit. He was extubated over the weekend, and is tolerating extubation very well, currently on room air, and his pulse ox is 93%. Hemodynamically stable, afebrile. Today' s chest x-ray shows trace left pleural effusion and bibasilar airspace disease, left greater than the right similar to the prior exams, consistent with bibasilar pneumonia. Today's labs showed efficacy of 12.7, hemoglobin of 10.8, BUN of 64, creatinine is 3.40. Microbiology was reviewed, blood, CSF culture, and sputum cultures are negative, urine culture from 08/16/2017 was positive for Vania species. Patient is improving, lung sounds are positive for a few scattered rhonchi, but no evidence of any respiratory distress. He remains somewhat confused. He has evidence of generalized edema in bilateral upper and lower extremities, and he was oliguric this morning, is given 20 mg of IV Lasix this morning. On 08/23/2017 patient seen in follow-up on selective care unit. He is resting comfortably in bed, denies any acute distress. Lung sounds are clear to auscultation, patient remains in atrial fibrillation, and his rate is controlled , he is on room air, and his pulse ox is 93%. He is afebrile, patient is generally weak. Patient's renal profile seems to be worsening, his BUN is up to 56, creatinine is 3.53. Today's chest x-ray shows cardiomegaly, bibasilar atelectasis and small bilateral pleural effusions. Nephrology and ID service are following 08/24/2017 patient seen in follow-up on selective care unit. He is resting in bed, denies any acute distress. He states his biggest complaint is lack of energy, and fatigue. Denies any dyspnea, denies any chest pain. On yesterday' s chest x-ray there were stable findings, of cardiomegaly and bibasilar atelectasis, and small bilateral pleural effusions. Patient remains on 2 L per nasal cannula, with O2 sat at 99%, this can probably be further wean down. Patient is afebrile, hemodynamically stable. Respirations are even and nonlabored. Lung sounds are clear to auscultation. Labs are negative for any evidence of leukocytosis, hemoglobin is 10.8, his renal profile is improving, electrolytes are within normal limits. Patient remains stable from pulmonary standpoint. On 08/25/2017 patient seen in follow-up on medical surgical floor. Resting in bed, denies any acute distress. Less lethargic on today's exam, but appears to be generally weak. Lung sounds are less rhonchorous and congested on today's exam. Patient is currently on 2 L per nasal cannula with O2 sat 93%. Patient is afebrile. Today's labs show improvement in his renal profile, BUN is 39, creatinine is 2.22, and nephrology is following. Patient is receiving nebulized bronchodilators, IV diuretics, Zosyn and Diflucan Objective - Vital Signs Vital signs: Vital Signs Temp 98.0 F 08/26/17 05:33 Pulse 56 L 08/26/17 05:33 Resp 16 08/26/17 08:00 BP 160/77 08/26/17 05:33 Pulse Ox 93 L 08/26/17 05:33 Intake & Output 08/25/17 08/26/17 08/26/17 18:59 06:59 18:59 Intake Total 50 Output Total 1300 900 Balance -1300 -900 50 Weight 82.5 kg 82.5 kg Intake: Oral 50 Output: Urine 1300 900 Other: Voiding Method Indwelling Catheter Indwelling Catheter Indwelling Catheter # Bowel Movements 2 - Exam No acute distress. Oriented 2. No nasal O2 at this time. HEENT examination is grossly unremarkable. Mucous membranes are moist. No oral lesions. Neck supple. Full range of motion. No adenopathy thyromegaly or neck vein distention. Cardiovascular examination reveals regular rhythm rate. S1-S2 normal. No S3 or S4. No discernible murmur noted. Lungs reveal scattered rhonchi, less congested on today's exam. Abdomen soft bowel sounds are heard. No masses or tenderness. Extremities are intact. No cyanosis clubbing, there is mild bilateral upper and lower extremity edema Skin is without rash or lesion. Neurologic examination is nonfocal. - Labs CBC & Chem 7: 08/25/17 08:30 08/26/17 07:23 Labs: Abnormal Lab Results - Last 24 Hours (Table) 08/25/17 08/25/17 08/25/17 Range/Units 08:30 08:30 12:27 RBC 3.96 L (4.30-5.90) m/uL Hgb 11.2 L (13.0-17.5) gm/dL Hct 33.7 L (39.0-53.0) % BUN 43 H (9-20) mg/dL Creatinine 2.42 H (0.66-1.25) mg/dL POC Glucose (mg/dL) 138 H (75-99) mg/dL Calcium 7.8 L (8.4-10.2) mg/dL 08/25/17 08/25/17 08/26/17 Range/Units 17:03 20:34 07:23 RBC (4.30-5.90) m/uL Hgb (13.0-17.5) gm/dL Hct (39.0-53.0) % BUN 39 H (9-20) mg/dL Creatinine 2.22 H (0.66-1.25) mg/dL POC Glucose (mg/dL) 117 H 107 H (75-99) mg/dL Calcium 7.5 L (8.4-10.2) mg/dL Microbiology - Last 24 Hours (Table) 08/23/17 12:15 Urine Culture - Final Urine,Catheterized Vania albicans Assessment and Plan Plan: Assessment: Acute hypoxemic respiratory failure secondary to sepsis and pneumonia. Intubation with mechanical ventilation for acute hypoxemic respiratory failure, with extubation on August 20. Acute urinary tract infection with sepsis Acute on chronic nonoliguric renal failure secondary to ATN, improving Stage III chronic kidney disease Acute hypernatremia Acute metabolic acidosis secondary to sepsis and renal failure. Protein calorie malnutrition History of chronic atrial fibrillation History of CAD with previous bypass grafting Diastolic heart failure. Metabolic encephalopathy secondary to sepsis History of seizure disorder Plan: Continue current treatment, he remains stable from pulmonary standpoint. Continue empiric antibiotics, continue nebulized bronchodilators. Maintain aspiration precautions. We'll see the patient on as-needed basis. I performed a history & physical examination of the patient and discussed their management with my nurse practitioner, Corinne Kee. I reviewed the nurse practitioner's note and agree with the documented findings and plan of care. Lung sounds are positive for a few scattered rhonchi. The findings and the impression was discussed with the patient. I attest to the documentation by the nurse practitioner. Time with Patient: Less than 30
--- NOTE | 2017-08-26 10:29 | P.DS ---
Providers Date of admission: 08/11/17 13:55 Expected date of discharge: 08/26/17 Attending physician: Ericka Thompson Consults: 08/11/17 13:57 Consult Physician Urgent Consulting Provider: [facility] Consult Reason/Comments: Elevated troponin Do you want consulting provider notified?: Yes 08/13/17 08:44 Consult Physician Routine Consulting Provider: Gabriel Mcbride Consult Reason/Comments: RENAL INSUFF Do you want consulting provider notified?: Already Contacted 08/16/17 11:47 Consult Physician Routine Consulting Provider: Josh Presley Consult Reason/Comments: mental status changes Do you want consulting provider notified?: Yes 08/17/17 11:40 Consult Physician Routine Consulting Provider: Reggie Louis Consult Reason/Comments: sepsis, metabolic encephalopathy Do you want consulting provider notified?: Yes 08/17/17 15:32 Consult to Anesthesia Stat Consulting Provider: Anesthesia,Services Consult Reason/Comments: for LP/CSF 08/18/17 02:03 Consult Physician Stat Consulting Provider: Carlos Robles Consult Reason/Comments: icu management Do you want consulting provider notified?: Already Contacted Primary care physician: Lucas Gallo [facility] Course: This is a 71-year-old male one of Dr. Lucas Gallo's patient with past medical history of hypertension, hyperlipidemia, diabetes, COPD, ,CHF , alcoholism and worsening heart failure who had open heart surgery with the CABG 2015 ended up having multiple complications and the multiple rehospitalization for worsening shortness of breath, A. fib and other complication. He was last hospitalized on 05/06/2016 at which time he was here for bradycardia and beta kojo was discontinued. He was sent in after neighbor found him in bed very weak, apparently patient has not gotten out of bed for 2 days. The neighbor checks on him on a daily basis, however on her return trip, he hasn't moved out of bed and has soiled himself stooled himself, and hasn't eaten for approximately 48 hours. Patient has difficulty in getting out of bed difficulty ambulating, his son who normally is sees constantly complaining at home, apparently admitted hospital hence no one was caring for the patient except for a visit from a neighbor. Patient has had cough, some wheezing, stiffness of the joint, difficulty in ambulating, patient hasn't had his medications for 2 days as well 08/12: Echocardiogram reveals EF of 50-55% with moderate concentric left ventricular hypertrophy, LA severely dilated at greater than 40, are appears enlarged, mild mitral calcification, mild mitral regurgitation, mild tricuspid regurgitation. Patient has been seen and evaluated by cardiology. Beta kojo was not started due to history of symptomatic bradycardia. Aspirin 81 mg was added. Patient no longer on Coumadin most likely due to risk of bleeding. White count is improved to 20.1. BUN is 63 and creatinine 2.8. TSH is 2.940. Patient is decreased mental status today. Staff was unable to feed him today. His blood pressure is stable. [place] will be changed to half a tablet which is 2.5 mg 3 times daily as needed. Keppra level will be checked in the morning as well as EEG ordered. Patient has been afebrile. PT has recommended subacute rehab. 08/13: Patient improved slightly yesterday evening where he was able to tolerate his dinner and he ate 80% of his dinner. Patient today is still lethargic but open his eyes to voice command following simple commands like moving his extremities up and down 08/14: Patient continued to have adequate urine output with a slight improvement in kidney function. Patient is improved from the mental status standpoint where he is more awake and following simple commands but looks lethargic overall. No major events reported by nursing staff 08/15: Patient was evaluated today, he underwent abdominal/bladder ultrasound, exam revealed limited exam but otherwise normal. Cardiology on consult, who discontinued his amlodipine do to hypotension. Blood pressure did improve to 132/67 today. Creatinine function slightly increased from previous, today 3.3, nephrology consult, recommends to continue with IV hydration, continue to hold lisinopril Lasix. Blood cultures show no growth to date. 08/16: Patient is still lethargic for nurse. Speech therapy has evaluated and made him nothing by mouth as he is too lethargic to eat. Keppra and Protonix changed to IV. Clonidine patch added for blood pressure control. He is continued on IV fluids at 75 mL per hour. Oral medications have been discontinued until patient is more alert. Creatinine is 3.25. Last bowel movement was 2 days ago. He has had good urine output. Repeat urinalysis shows signs of infection and patient is already on Zosyn. Consult with neurology added. 08/17: Patient has been seen by Dr. Presley with thought that metabolic encephalopathy secondary to sepsis and renal failure. CT of the brain revealed no acute intracranial hemorrhage or midline shift. No acute intracranial process. Multifocal lacunar injuries old-appearing old. Diffuse age-related triple atrophy and chronic small vessel ischemic change. Patient remains essentially unresponsive. Clonidine was increased last evening for high blood pressure. Due to elevated sodium IV fluids will be switched to D5W at 75 mL per hour. NG tube to be placed for tube feedings and consult with dietitian. 08/18: Chest x-ray revealed bilateral infiltrate and pleural effusions correlate for heart failure. NG tube in the left upper quadrant likely within the stomach. Patient was seen by Dr. Louis without the UTI could be underlying etiology for metabolic encephalopathy and possible pneumonitis. He requested anesthesia to perform LP and continue Zosyn. Diagnostic LP was done by Dr. Ulrich with return of clear spinal fluid. EEG did not reveal any seizure activity. There is been no seizure activity during this hospitalization. Dr. Presley did order MRI of the brain. A repeat chest x-ray this morning reveals congestive heart failure with small pleural effusions. Decreased pleural fluid on the left side. CT of the brain revealed possible evolving acute subacute infarct internal capsule on the right. Subsequent increase in size compared to prior study. Repeat chest x-ray shows new endotracheal tube. Similar interstitial prominence. Mild basilar opacities mostly on the left side. Mildly decreased. Dr. Mcbride as ordered 1 dose of IV Lasix 40 mg today. Last evening, patient' s blood pressure was elevated and [facility] was able to give labetalol. Patient said that a drop in his blood pressure. Patient was transferred to the intensive care unit last evening and consult with Dr. Robles was added. He was intubated at 4 this morning and remains intubated and on mechanical ventilation. Blood pressure has remained on the high side. Patient did not require vasopressors. White count went up to 20.2 sodium is 150, BUN 57 creatinine 3.1. Currently, sedation is off and patient is unresponsive. CODE STATUS was discussed with the patient's son yesterday afternoon/evening and he wanted the patient to remain full code. 08/19: Patient remains in intensive care unit on mechanical ventilation. He was given Lasix 40 mg once this morning. Chest x-ray this morning shows stable findings, persistent mild central vascular congestion and small bilateral pleural effusions with associated left basilar atelectasis and/or infiltrate. D5W was discontinued. Labetalol discontinued due to bradycardia and hydralazine added. According to Dr. Mcbride, family is okay with proceeding with dialysis. Sodium is 145, creatinine 3.19, BUN 60. Patient has been started on tube feedings and blood sugars are now running high for which Levemir will be started at 10 units along with scale NovoLog. Brother is at the bedside and updated. He does state that patient return to smoking recently. Patient has been afebrile. 08/20: Patient remains in the intensive care unit, he is currently off propofol for the past 24 hours, he is more awake, he is following directions, he is most likely would be extubated today. 08/21: Patient was extubated yesterday he is spending better he is extremely weak , he denies any chest pain, he is less short of breath, he appears to be with increased edema and upper extremities abdomen and scrotum, discussed with nephrology adding Lasix 60 mg IV 1. 08/22: Check stat x-ray shows cardiomegaly persistent trace left pleural effusion and bibasilar airspace disease left greater than right similar to prior exam. Findings may represent decompensated congestive heart failure and confluent pulmonary edema at the longer bibasilar pneumonia and the appropriate setting. Dr. Louis discontinued Zosyn and Diflucan. Repeat BUN 64 and creatinine 3.40. Nephrology is suspecting renal failure to recover. IV fluids to continue D5W. One dose of Lasix was given yesterday for scrotal edema. Patient remains in intensive care unit. Patient is noted to be extremely weak. 08/23: Patient is now seen on the selective care unit. Repeat chest x-ray shows overall stable findings, cardiomegaly and chronic parenchymal change with persistent bibasilar atelectasis and/or infiltrate probable small bilateral pleural effusions are redemonstrated. Dr. Mcbride has recommended continuing IV Lasix 20 mg daily and increase hydralazine to 75 mg 3 times daily, maintain Grullon catheter. Patient's Grullon catheter was discontinued yesterday. He has required straight cath twice for greater than 1000 mL. And Grullon catheter is now in place. Pulse ox is 93% on room air. White count is 12.2, BUN 56 and creatinine 3.53. Plan for patient to start participating with physical therapy. 08/24: Patient is not eating much. He states hes not hungry and does not like the food. He is complaining of chronic back pain and [place] 5 will be resumed. Anticipate he will be ready to go to [facility] by Tuesday. Social work to follow up. 08/25: Nephrology recommends continuing the Lasix at 20 mg IV daily, increase hydralazine to 100 mg 3 times daily and maintain Grullon catheter. Renal function is improving with BUN 43 and creatinine of 2.42. He remains on Zosyn and Diflucan as recommended by Dr. Louis. Patient continues to have generalized weakness. Anticipate discharge possibly by tomorrow. 08/26: Repeat BUN 39 and creatinine 2.22. Calcium is 7.5. Repeat urine cultures positive for Vania. Dr. Rios has signed off the case. Dr. Louis states patient has completed his course of antimicrobials with no need to continue at the [facility]. Medication reconciliation will be completed. Patient will be discharged to [facility] today in stable condition. Discharge diagnoses: 1. Metabolic encephalopathy with sepsis secondary to aspiration pneumonia and UTI. Stroke ruled out by neurology 2. Acute hypoxic respiratory failure requiring intubation and mechanical ventilation s/p successfully extubation. 3. Elevated troponin, secondary to sepsis without evidence of acute coronary syndrome. 4. Acute kidney injury secondary to ATN secondary to sepsis and hemodynamic instability with chronic kidney disease stage III. 5. Arrhythmia history with prior Nonsustained ventricular tachycardia on 2015, October 2015 showed atrial fibrillation with small pericardial effusion noted ejection fraction 45-50% inferolateral hypokinesis with palpation of LA size over 40. 6. History bilateral hydronephrosis mild, improved from last ultrasound history Phimosis with urinary retention 7. CAD post CABG 8. Diabetes mellitus type II 9. Hypertensive cardiovascular disease 10. Hyperlipidemia 11. Chronic A. fib. 12. Acute on chronic systolic and possible diastolic heart failure 12. Recurrent depression 13. Seizure history 14. BPH 15. Severe GERD 16. Rhabdomyolysis 17. Sacral decubitus stage I secondary to prolonged immobilization 18. Hypernatremia. 19. Severe protein calorie malnutrition due to lack of oral intake. 20. Chronic low back pain. Discharge plan: [facility] Impression and plan of care have been directed as dictated by the signing physician. Carly Greene nurse practitioner acting as scribe for signing physician. Patient Condition at Discharge: Good Plan - Discharge Summary Discharge Rx Participant: Yes New Discharge Prescriptions: New hydrALAZINE HCL [Apresoline] 100 mg PO TID tab Insulin Aspart [NovoLOG (formulary)] 0 unit SQ ACHS vial Insulin Detemir [Levemir] 10 unit SQ DAILY syr Metoprolol Tartrate [Lopressor] 25 mg PO BID tab PARoxetine [Paxil] 10 mg PO DAILY tab Sodium Bicarbonate Tab 650 mg PO BID tab Tamsulosin [Flomax] 0.4 mg PO PC-SUPPER cap.er.24h Continue levETIRAcetam [Keppra] 750 mg PO BID Isosorbide Mononitrate ER [Imdur] 30 mg PO DAILY Baclofen 10 mg PO HS Atorvastatin [Lipitor] 40 mg PO HS Omeprazole [PriLOSEC] 20 mg PO BID Potassium Chloride ER [K-Dur 20] 20 meq PO DAILY Montelukast [Singulair] 10 mg PO DAILY Albuterol Inhaler [Ventolin Hfa Inhaler] 2 puff INHALATION RT-QID PRN PRN Reason: Shortness Of Breath Budesonide [Pulmicort] 0.5 mg INHALATION RT-BID Ipratropium-Albuterol Nebulize [Duoneb 0.5 mg-3 mg/3 ml Soln] 3 ml INHALATION RT-QID Nitroglycerin Sl Tabs [Nitrostat] 0.4 mg SUBLINGUAL Q5M PRN PRN Reason: Angina HYDROcodone/APAP 5-325MG [[place] 5-325] 1 tab PO TID #90 tab Changed Furosemide [Lasix] 40 mg PO DAILY #0 tab Lisinopril [Zestril] 5 mg PO DAILY #0 Discontinued Tamsulosin HCl [Flomax] 0.4 mg PO BID #0 ALPRAZolam [Xanax] 0.25 mg PO HS PARoxetine HCL [Paxil] 40 mg PO DAILY hydrALAZINE HCL [Apresoline] 75 mg PO BID amLODIPine [Norvasc] 5 mg PO DAILY Insulin Glargine [Lantus] 20 unit SQ HS Discharge Medication List Baclofen 10 mg PO HS 04/26/14 [History] Isosorbide Mononitrate ER [Imdur] 30 mg PO DAILY 04/26/14 [History] levETIRAcetam [Keppra] 750 mg PO BID 04/26/14 [History] Atorvastatin [Lipitor] 40 mg PO HS 06/14/14 [History] Omeprazole [PriLOSEC] 20 mg PO BID 04/18/16 [History] Potassium Chloride ER [K-Dur 20] 20 meq PO DAILY 05/05/16 [History] Montelukast [Singulair] 10 mg PO DAILY 06/16/16 [History] Albuterol Inhaler [Ventolin Hfa Inhaler] 2 puff INHALATION RT-QID PRN 08/11/17 [ History] Budesonide [Pulmicort] 0.5 mg INHALATION RT-BID 08/11/17 [History] Ipratropium-Albuterol Nebulize [Duoneb 0.5 mg-3 mg/3 ml Soln] 3 ml INHALATION RT -QID 08/11/17 [History] Nitroglycerin Sl Tabs [Nitrostat] 0.4 mg SUBLINGUAL Q5M PRN 08/11/17 [History] Furosemide [Lasix] 40 mg PO DAILY #0 tab 08/26/17 [Rx] HYDROcodone/APAP 5-325MG [[place] 5-325] 1 tab PO TID #90 tab 08/26/17 [Rx] Insulin Aspart [NovoLOG (formulary)] 0 unit SQ ACHS vial 08/26/17 [Rx] Insulin Detemir [Levemir] 10 unit SQ DAILY syr 08/26/17 [Rx] Lisinopril [Zestril] 5 mg PO DAILY #0 08/26/17 [Rx] Metoprolol Tartrate [Lopressor] 25 mg PO BID tab 08/26/17 [Rx] PARoxetine [Paxil] 10 mg PO DAILY tab 08/26/17 [Rx] Sodium Bicarbonate Tab 650 mg PO BID tab 08/26/17 [Rx] Tamsulosin [Flomax] 0.4 mg PO PC-SUPPER cap.er.24h 08/26/17 [Rx] hydrALAZINE HCL [Apresoline] 100 mg PO TID tab 08/26/17 [Rx] Follow up Appointment(s)/Referral(s): Bree Tang MD [STAFF PHYSICIAN] - 1 Week Lucas Gallo MD [Primary Care Provider] - 1 Week Patient Instructions/Handouts: Grullon Catheter Placement and Care (DC), Sepsis ( GEN) Activity/Diet/Wound Care/Special Instructions: Oxygen 2L n/c ATC. Cardiac, diabetic diet. Activity as tolerated. Remove Clonidine patch on 08/31. No renewal. Monitor BP tid. Call physicain if SBP > 160. Discharge Disposition: TRANSFER TO SNF/ECF
[2017-08-26 11:55] LABS: Glucose,Whole Blood 125 mg/dL (75-99)
--- NOTE | 2017-08-26 14:26 | PN ---
PROGRESS NOTE DATE OF SERVICE: 08/26/2017 REASON FOR FOLLOWUP: Possible aspiration pneumonitis and UTI. INTERVAL HISTORY: The patient is afebrile. He has been breathing comfortably. Denies having any chest pain, cough. Not bringing up any sputum. No abdominal pain, no diarrhea. EXAMINATION: Blood pressure 150/77 with a pulse of 68, temperature 98. He is 93% on 2 L nasal cannula. General description is an elderly male lying in bed in no distress. RESPIRATORY SYSTEM: Unlabored breathing. Breath sounds diminished in the bases. No wheeze. HEART: S1, S2. Regular rate and rhythm. ABDOMEN: Soft, no tenderness. EXTREMITIES: No edema feet. LABS: BUN of 59, creatinine is 2.22. Urine repeat on 08/23 is still positive for Vania albicans. DIAGNOSTIC IMPRESSION AND PLAN: Patient with leukocytosis, multifactorial. The patient did have a component of aspiration pneumonitis adequately treated with more than 10 days of IV Zosyn. That can be discontinued. With urine still positive for Vania albicans, will give him 5 day course of oral Diflucan with close outpatient followup. MMODL / IJN: [id number] /
--- NOTE | 2017-08-26 15:23 | PN ---
PROGRESS NOTE Patient is seen for followup for acute kidney injury. His renal function has improved slightly. The patient is currently comfortable. He denies any significant complaints. His creatinine continues to decline. The study did continues to decrease. PHYSICAL EXAMINATION: Blood pressure is 160/77, heart rate 56 per minute. Patient is afebrile. Examination of the heart S1, S2. Examination of lungs bilateral breath sounds are heard. Abdomen is soft, nontender. Examination of lower extremity shows no significant edema. LABOR ARBITRATOR exam is grossly intact. LABS: Sodium 141, potassium 3.5, chloride 105, BUN 39, serum creatinine 2.2 mg/dL. ASSESSMENT: 1. Acute kidney injury. Acute tubular necrosis currently slowly improving. 2. Chronic kidney disease stage 3 secondary to diabetic kidney disease with baseline creatinine 1.2 in May of 2016. 3. Urine retention with indwelling Grullon catheter. 4. Diastolic congestive heart failure, currently improved. 5. Metabolic acidosis, maintained on oral sodium bicarb. 6. Hypernatremia, currently improved. The D5W is discontinued. PLAN: Continue current dose of Lasix and continue to avoid nephrotoxic agents. The patient is stable for discharge. MMODL / IJN: [id number] /
[2017-08-26 16:19] VITALS: PULSE 64
== END 2017-08-26 16:24 | DRG 870 ==
LOC: EC 11:21 → 6SEL 13:55 → 3SUR 08-15 06:44 → 6ICU 08-18 04:17 → 6SEL 08-22 15:48 → 4MS4W 08-24 17:32
PROVIDERS: ADMIT Family Medicine; ATTEND Family Medicine
PROC: 5A1955Z Respiratory Ventilation, Greater than 96 Consecutive Hours (ICD-10-PCS; 2017-08-17)
PROC: 0BH17EZ Insertion of Endotracheal Airway into Trachea, Via Natural or Artificial Opening (ICD-10-PCS; 2017-08-17)
PROC: 009U3ZX Drainage of Spinal Canal, Percutaneous Approach, Diagnostic (ICD-10-PCS; principal; 2017-08-17 18:45)
DX: A41.9 Sepsis, unspecified organism (principal); E43 Unspecified severe protein-calorie malnutrition; G93.41 Metabolic encephalopathy; J69.0 Pneumonitis due to inhalation of food and vomit; J96.21 Acute and chronic respiratory failure with hypoxia; N17.0 Acute kidney failure with tubular necrosis; I50.43 Acute on chronic combined systolic (congestive) and diastolic (congestive) heart failure; B37.49 Other urogenital candidiasis; E87.0 Hyperosmolality and hypernatremia; E87.2 Acidosis; F33.9 Major depressive disorder, recurrent, unspecified; I13.0 Hypertensive heart and chronic kidney disease with heart failure and stage 1 through stage 4 chronic kidney disease, or unspecified chronic kidney disease; J98.11 Atelectasis; M62.82 Rhabdomyolysis; E11.21 Type 2 diabetes mellitus with diabetic nephropathy; E11.22 Type 2 diabetes mellitus with diabetic chronic kidney disease; E66.9 Obesity, unspecified; Z68.26 Body mass index [BMI] 26.0-26.9, adult; E78.5 Hyperlipidemia, unspecified; E86.0 Dehydration; F10.20 Alcohol dependence, uncomplicated; F17.200 Nicotine dependence, unspecified, uncomplicated; G40.909 Epilepsy, unspecified, not intractable, without status epilepticus; G47.33 Obstructive sleep apnea (adult) (pediatric); G89.29 Other chronic pain; I08.1 Rheumatic disorders of both mitral and tricuspid valves; I25.10 Atherosclerotic heart disease of native coronary artery without angina pectoris; I25.2 Old myocardial infarction; I48.2 Chronic atrial fibrillation; I49.3 Ventricular premature depolarization; J44.9 Chronic obstructive pulmonary disease, unspecified; K21.9 Gastro-esophageal reflux disease without esophagitis; L89.151 Pressure ulcer of sacral region, stage 1; N18.3 Chronic kidney disease, stage 3 (moderate); N40.1 Benign prostatic hyperplasia with lower urinary tract symptoms; Z20.5 Contact with and (suspected) exposure to viral hepatitis; Z79.4 Long term (current) use of insulin; Z79.82 Long term (current) use of aspirin; Z79.899 Other long term (current) drug therapy; Z81.8 Family history of other mental and behavioral disorders; Z82.49 Family history of ischemic heart disease and other diseases of the circulatory system; Z86.73 Personal history of transient ischemic attack (TIA), and cerebral infarction without residual deficits; Z87.442 Personal history of urinary calculi; Z95.1 Presence of aortocoronary bypass graft; Z99.81 Dependence on supplemental oxygen; R33.9 Retention of urine, unspecified; R00.1 Bradycardia, unspecified; T44.8X5A Adverse effect of centrally-acting and adrenergic-neuron-blocking agents, initial encounter; M54.5 Low back pain; Z88.7 Allergy status to serum and vaccine; Z88.8 Allergy status to other drugs, medicaments and biological substances
CPT/HCPCS: 36415; 36600; 51702; 62270; 70450; 71045; 71046; 76770; 80048; 80053; 80074; 80177; 81001; 82140; 82533; 82550; 82553; 82570; 82607; 82805; 82945; 83036; 83540; 83550; 83605; 83735; 83883; 84100; 84132; 84156; 84157; 84165; 84295; 84443; 84484; 85025; 85027; 85610; 85730; 86038; 86160; 86162; 86225; 86255; 87040; 87070; 87086; 87205; 87529; 87798; 88108; 89050; 90632; 93005; 93306; 94002; 94003; 94640; 94760; 95819; 96361; 96365; 96375; 99285

== ENCOUNTER 2017-08-31 10:10 | Inpatient (IN) | payer MEDICARE ==
[2017-08-31] MEDS ORDERED: PIPERACILLIN-TAZOBACTAM 3.375 GM in DEXTROSE/WATER 1 50ML.BAG IVPB STA (10:21)
[2017-08-31] MEDS ORDERED: ACETAMINOPHEN IV (For NPO) 1,000 MG in EMPTY BAG 1 BAG IVPB STA (10:26)
[2017-08-31] MEDS ORDERED: IBUPROFEN IV 600 MG in SODIUM CHLORIDE 0.9% 250 ML IV STA (10:27)
--- NOTE | 2017-08-31 11:03 | ED ---
General Adult HPI - General Chief complaint: Shortness of Breath Stated complaint: altered Mental Time Seen by Provider: 08/31/17 10:10 Source: patient, EMS, RN notes reviewed Mode of arrival: EMS Limitations: altered mental status - History of Present Illness Initial comments: This is a 71-year-old male who [facility] status fever and possible pneumonia. Patient is unable to give us any history known else came with the patient and so we have no more history at this time. According to our report the patient is normally alert and oriented 3 today's only alert is not oriented at all and unable to answer questions. - Related Data Home Medications Medication Instructions Recorded Confirmed Baclofen 10 mg PO HS 04/26/14 08/31/17 Isosorbide Mononitrate ER [Imdur] 30 mg PO DAILY 04/26/14 08/31/17 levETIRAcetam [Keppra] 750 mg PO BID 04/26/14 08/31/17 Atorvastatin [Lipitor] 40 mg PO HS 06/14/14 08/31/17 Omeprazole [PriLOSEC] 20 mg PO BID 04/18/16 08/31/17 Potassium Chloride ER [K-Dur 20] 20 meq PO HS 05/05/16 08/31/17 Montelukast [Singulair] 10 mg PO DAILY 06/16/16 08/31/17 Albuterol Inhaler [Ventolin Hfa 2 puff INHALATION RT-QID PRN 08/11/17 08/31/17 Inhaler] Budesonide [Pulmicort] 0.5 mg INHALATION RT-BID 08/11/17 08/31/17 Ipratropium-Albuterol Nebulize 3 ml INHALATION RT-QID 08/11/17 08/31/17 [Duoneb 0.5 mg-3 mg/3 ml Soln] Nitroglycerin Sl Tabs [Nitrostat] 0.4 mg SUBLINGUAL Q5M PRN 08/11/17 08/31/17 Insulin Aspart [NovoLOG See Protocol SQ ACHS 08/31/17 08/31/17 (formulary)] Insulin Detemir [Levemir] 7 unit SQ DAILY 08/31/17 08/31/17 Lisinopril [Zestril] 5 mg PO DAILY 08/31/17 08/31/17 Metoprolol Tartrate [Lopressor] 12.5 mg PO BID 08/31/17 08/31/17 Multivitamins, Thera [Multivitamin 1 tab PO HS 08/31/17 08/31/17 (formulary)] Prostat Sugar Free 30 ml PO BID 08/31/17 08/31/17 hydrALAZINE HCL [Apresoline] 100 mg PO TID 08/31/17 08/31/17 Previous Rx's Medication Instructions Recorded Fluconazole [Diflucan] 100 mg PO DAILY #5 tab 08/26/17 Furosemide [Lasix] 40 mg PO DAILY #0 tab 08/26/17 HYDROcodone/APAP 5-325MG [Byron 1 tab PO TID #90 tab 08/26/17 5-325] PARoxetine [Paxil] 10 mg PO DAILY tab 08/26/17 Sodium Bicarbonate Tab 650 mg PO BID tab 08/26/17 Tamsulosin [Flomax] 0.4 mg PO PC-SUPPER cap.er.24h 08/26/17 Allergies Allergy/AdvReac Type Severity Reaction Status Date / Time adhesive AdvReac Unknown Verified 08/31/17 10:44 influenza virus vaccine, AdvReac Nausea & Verified 08/31/17 10:44 specific Vomiting & [Influenza Virus Diarrhea Vacc,Specific] Review of Systems ROS Statement: Those systems with pertinent positive or pertinent negative responses have been documented in the HPI. ROS Other: All systems not noted in ROS Statement are negative. Past Medical History Past Medical History: Atrial Fibrillation, Coronary Artery Disease (CAD), Heart Failure, COPD, Diabetes Mellitus, GERD/Reflux, Hyperlipidemia, Hypertension, Myocardial Infarction (non Q-wave), Musculoskeletal Disorder, Osteoarthritis (OA ), Pneumonia, Prostate Disorder, Seizure Disorder, Sleep Apnea/CPAP/BIPAP Additional Past Medical History / Comment(s): Other HX: TIA possible CVA pt us unsure, Chronic UTI'S,. CATARACTS bilaterally, GOUT,DOES'NT USE CPAP AT. HOME ,KIDNEY STONE, BULGING DISCS. home o2 3l nc at all times [place] 11/2013, arthiritis . 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 Past Anesthesia/Blood Transfusion Reactions: No Reported Reaction Past Psychological History: Depression Smoking Status: Former smoker Past Alcohol Use History: None Reported Past Drug Use History: None Reported - Past Family History Father Family Medical History: Cancer, Dementia, Hyperlipidemia, Hypertension, Myocardial Infarction ([place]) Additional Family Medical History / Comment(s): AT AGE 78- Mother Family Medical History: No Reported History, Coronary Artery Disease (CAD), Dementia, Myocardial Infarction ([place]) Additional Family Medical History / Comment(s): AT AGE 86 Brother(s) Family Medical History: No Reported History Sister(s) Family Medical History: No Reported History, Rheumatoid Arthritis (RA) Son(s) Family Medical History: No Reported History Daughter(s) Family Medical History: No Reported History General Exam - General Exam Comments Initial Comments: GENERAL: Patient is well-developed and well-nourished. Patient is nontoxic and well- hydrated and is in mild distress. ENT: Neck is soft and supple. No significant lymphadenopathy is noted. Oropharynx is clear. Dry mucous membranes EYES: The sclera were anicteric and conjunctiva were pink and moist. Extraocular movements were intact and pupils were equal round and reactive to light. Eyelids were unremarkable. PULMONARY: Difficult to hear decent breath sounds because he is not making any effort. CARDIOVASCULAR: There is a regular rate and rhythm without any murmurs gallops or rubs. ABDOMEN: Soft and nontender with normal bowel sounds. No palpable organomegaly was noted. There is no palpable pulsatile mass. SKIN: Skin is clear with no lesions or rashes and otherwise unremarkable. NEUROLOGIC: Patient is alert and oriented 0 unable to assess. Cranial nerves II through XII are grossly intact. Motor and sensory are also intact. Normal speech, volume and content. Symmetrical smile. MUSCULOSKELETAL: Normal extremities with adequate strength and full range of motion. No lower extremity swelling or edema. No calf tenderness. LYMPHATICS: No significant lymphadenopathy is noted PSYCHIATRIC: Normal psychiatric evaluation. Normal interpersonal interactions appears functionally intact in deals appropriately with others. No signs of depression. No signs of anxiety. No delusions. No hallucinations. Limitations: altered mental status Course Vital Signs 08/31/17 08/31/17 08/31/17 10:12 10:40 11:30 Temperature 99.9 F H 100.1 F H Pulse Rate 65 66 60 Respiratory 22 22 20 Rate Blood Pressure 213/91 194/77 201/93 O2 Sat by Pulse 92 L 91 L 97 Oximetry 08/31/17 13:00 Temperature Pulse Rate 60 Respiratory 20 Rate Blood Pressure 188/88 O2 Sat by Pulse 94 L Oximetry Medical Decision Making - Medical Decision Making EKG shows undetermined rhythm at 60 bpm with occasional PVC QRS is 98 QT interval 440 QTC is 467. Patient's EKG shows no acute changes Brother came to the bedside and he stated the patient is a little bit altered but he didn't seem to think he was significantly altered even though he is only alert and oriented 0 Chest x-ray shows a posterior focal pneumonia I started the patient on antibiotics I spoke with Dr. Souza I admitted the patient I wrote admitting orders. - Lab Data Result diagrams: 08/31/17 10:30 08/31/17 10:30 Lab Results 08/31/17 08/31/17 08/31/17 Range/Units 10:30 10:30 10:30 WBC 10.4 (3.8-10.6) k/uL RBC 3.98 L (4.30-5.90) m/uL Hgb 10.9 L (13.0-17.5) gm/dL Hct 34.2 L (39.0-53.0) % MCV 85.9 (80.0-100.0) fL MCH 27.5 (25.0-35.0) pg MCHC 32.0 (31.0-37.0) g/dL RDW 15.2 (11.5-15.5) % Plt Count 220 (150-450) k/uL Neutrophils % 81 % Lymphocytes % 10 % Monocytes % 7 % Eosinophils % 1 % Basophils % 0 % Neutrophils # 8.4 H (1.3-7.7) k/uL Lymphocytes # 1.1 (1.0-4.8) k/uL Monocytes # 0.7 (0-1.0) k/uL Eosinophils # 0.1 (0-0.7) k/uL Basophils # 0.0 (0-0.2) k/uL PT (9.0-12.0) sec INR (<1.2) APTT (22.0-30.0) sec Sodium 143 (137-145) mmol/L Potassium 5.5 H (3.5-5.1) mmol/L Chloride 107 (98-107) mmol/L Carbon Dioxide 22 (22-30) mmol/L Anion Gap 14 mmol/L BUN 40 H (9-20) mg/dL Creatinine 1.81 H (0.66-1.25) mg/dL Est GFR (CKD-EPI)AfAm 42 (>60 ml/min/1.73 sqM) Est GFR (CKD-EPI)NonAf 36 (>60 ml/min/1.73 sqM) Glucose 114 H (74-99) mg/dL Plasma Lactic Acid Pedrito (0.7-2.0) mmol/L Calcium 8.0 L (8.4-10.2) mg/dL Total Bilirubin 0.7 (0.2-1.3) mg/dL AST 31 (17-59) U/L ALT 15 L (21-72) U/L Alkaline Phosphatase 119 (38-126) U/L Total Creatine Kinase 47 L (55-170) U/L CK-MB (CK-2) 1.7 (0.0-2.4) ng/mL CK-MB (CK-2) Rel Index 3.6 Troponin I 0.063 H* (0.000-0.034) ng/mL Total Protein 6.5 (6.3-8.2) g/dL Albumin 2.6 L (3.5-5.0) g/dL Urine Color Urine Appearance (Clear) Urine pH (5.0-8.0) Ur Specific Landis (1.001-1.035) Urine Protein (Negative) Urine Glucose (UA) (Negative) Urine Ketones (Negative) Urine Blood (Negative) Urine Nitrite (Negative) Urine Bilirubin (Negative) Urine Urobilinogen (<2.0) mg/dL Ur Leukocyte Esterase (Negative) Urine RBC (0-5) /hpf Urine WBC (0-5) /hpf Urine WBC Clumps (None) /hpf Influenza Type A RNA (Not Detectd) Influenza Type B (PCR) (Not Detectd) 08/31/17 08/31/17 08/31/17 Range/Units 10:30 10:30 10:30 WBC (3.8-10.6) k/uL RBC (4.30-5.90) m/uL Hgb (13.0-17.5) gm/dL Hct (39.0-53.0) % MCV (80.0-100.0) fL MCH (25.0-35.0) pg MCHC (31.0-37.0) g/dL RDW (11.5-15.5) % Plt Count (150-450) k/uL Neutrophils % % Lymphocytes % % Monocytes % % Eosinophils % % Basophils % % Neutrophils # (1.3-7.7) k/uL Lymphocytes # (1.0-4.8) k/uL Monocytes # (0-1.0) k/uL Eosinophils # (0-0.7) k/uL Basophils # (0-0.2) k/uL PT 11.7 (9.0-12.0) sec INR 1.2 H (<1.2) APTT 25.9 (22.0-30.0) sec Sodium (137-145) mmol/L Potassium (3.5-5.1) mmol/L Chloride (98-107) mmol/L Carbon Dioxide (22-30) mmol/L Anion Gap mmol/L BUN (9-20) mg/dL Creatinine (0.66-1.25) mg/dL Est GFR (CKD-EPI)AfAm (>60 ml/min/1.73 sqM) Est GFR (CKD-EPI)NonAf (>60 ml/min/1.73 sqM) Glucose (74-99) mg/dL Plasma Lactic Acid Pedrito 1.1 (0.7-2.0) mmol/L Calcium (8.4-10.2) mg/dL Total Bilirubin (0.2-1.3) mg/dL AST (17-59) U/L ALT (21-72) U/L Alkaline Phosphatase (38-126) U/L Total Creatine Kinase (55-170) U/L CK-MB (CK-2) (0.0-2.4) ng/mL CK-MB (CK-2) Rel Index Troponin I (0.000-0.034) ng/mL Total Protein (6.3-8.2) g/dL Albumin (3.5-5.0) g/dL Urine Color Urine Appearance (Clear) Urine pH (5.0-8.0) Ur Specific Landis (1.001-1.035) Urine Protein (Negative) Urine Glucose (UA) (Negative) Urine Ketones (Negative) Urine Blood (Negative) Urine Nitrite (Negative) Urine Bilirubin (Negative) Urine Urobilinogen (<2.0) mg/dL Ur Leukocyte Esterase (Negative) Urine RBC (0-5) /hpf Urine WBC (0-5) /hpf Urine WBC Clumps (None) /hpf Influenza Type A RNA Not Detected (Not Detectd) Influenza Type B (PCR) Not Detected (Not Detectd) 08/31/17 Range/Units 10:30 WBC (3.8-10.6) k/uL RBC (4.30-5.90) m/uL Hgb (13.0-17.5) gm/dL Hct (39.0-53.0) % MCV (80.0-100.0) fL MCH (25.0-35.0) pg MCHC (31.0-37.0) g/dL RDW (11.5-15.5) % Plt Count (150-450) k/uL Neutrophils % % Lymphocytes % % Monocytes % % Eosinophils % % Basophils % % Neutrophils # (1.3-7.7) k/uL Lymphocytes # (1.0-4.8) k/uL Monocytes # (0-1.0) k/uL Eosinophils # (0-0.7) k/uL Basophils # (0-0.2) k/uL PT (9.0-12.0) sec INR (<1.2) APTT (22.0-30.0) sec Sodium (137-145) mmol/L Potassium (3.5-5.1) mmol/L Chloride (98-107) mmol/L Carbon Dioxide (22-30) mmol/L Anion Gap mmol/L BUN (9-20) mg/dL Creatinine (0.66-1.25) mg/dL Est GFR (CKD-EPI)AfAm (>60 ml/min/1.73 sqM) Est GFR (CKD-EPI)NonAf (>60 ml/min/1.73 sqM) Glucose (74-99) mg/dL Plasma Lactic Acid Pedrito (0.7-2.0) mmol/L Calcium (8.4-10.2) mg/dL Total Bilirubin (0.2-1.3) mg/dL AST (17-59) U/L ALT (21-72) U/L Alkaline Phosphatase (38-126) U/L Total Creatine Kinase (55-170) U/L CK-MB (CK-2) (0.0-2.4) ng/mL CK-MB (CK-2) Rel Index Troponin I (0.000-0.034) ng/mL Total Protein (6.3-8.2) g/dL Albumin (3.5-5.0) g/dL Urine Color Yellow Urine Appearance Turbid (Clear) Urine pH 6.0 (5.0-8.0) Ur Specific Landis 1.016 (1.001-1.035) Urine Protein 3+ H (Negative) Urine Glucose (UA) Trace H (Negative) Urine Ketones 1+ H (Negative) Urine Blood Small H (Negative) Urine Nitrite Negative (Negative) Urine Bilirubin Negative (Negative) Urine Urobilinogen <2.0 (<2.0) mg/dL Ur Leukocyte Esterase Large H (Negative) Urine RBC 142 H (0-5) /hpf Urine WBC >182 H (0-5) /hpf Urine WBC Clumps Many H (None) /hpf Influenza Type A RNA (Not Detectd) Influenza Type B (PCR) (Not Detectd) Disposition Clinical Impression: Pneumonia, Altered mental status, Elevated troponin Disposition: ADMITTED IP TO THIS HOSP Referrals: Janet Blackman MD [Primary Care Provider] - 1-2 days Time of Disposition: 13:09
[2017-08-31 11:05] LABS: Basophils % (A) 0 %; Eosinophils # (A) 0.1 k/uL (0-0.7); Eosinophils % (A) 1 %; HCT 34.2 % (39.0-53.0); HGB 10.9 gm/dL (13.0-17.5); Lymphocytes # (A) 1.1 k/uL (1.0-4.8); Lymphocytes % (A) 10 %; MCH 27.5 pg (25.0-35.0); MCV 85.9 fL (80.0-100.0); Mean Platelet Volume 8.3; Monocytes # (A) 0.7 k/uL (0-1.0); Monocytes % (A) 7 %; Neutrophils # (A) 8.4 k/uL (1.3-7.7); Neutrophils % (A) 81 %; Platelet Count 220 k/uL (150-450); RBC 3.98 m/uL (4.30-5.90); RDW 15.2 % (11.5-15.5); WBC 10.4 k/uL (3.8-10.6)
[2017-08-31 11:12] LABS: Appearance,Urine Turbid (Clear); Bilirubin,Urine Negative (Negative); Blood,Urine Small (Negative); Color,Urine Yellow; Glucose,Urine (UA) Trace (Negative); Ketones,Urine 1+ (Negative); Leukocyte Esterase,Urine Large (Negative); Nitrite,Urine Negative (Negative); Protein,Urine 3+ (Negative); RBC,Urine 142 /hpf (0-5); Specific Gravity,Urine 1.016 (1.001-1.035); Urobilinogen,Urine <2.0 mg/dL (<2.0); WBC,Urine >182 /hpf (0-5)
[2017-08-31 11:13] LABS: INR 1.2 (<1.2); Partial Thromboplastin Time 25.9 sec (22.0-30.0); Prothrombin Time 11.7 sec (9.0-12.0)
[2017-08-31 11:19] LABS: Albumin 2.6 g/dL (3.5-5.0); Total Bilirubin 0.7 mg/dL (0.2-1.3); Total Protein 6.5 g/dL (6.3-8.2)
--- NOTE | 2017-08-31 11:19 | XR ---
EXAMINATION TYPE: XR chest 2V DATE OF EXAM: 08/31/2017 COMPARISON: 08/23/2017 HISTORY: Weakness and fever TECHNIQUE: Frontal and lateral views of the chest are obtained. FINDINGS: Retrocardiac density seen posteriorly on the lateral image is highly suspicious for pneumo jessica. Similar prominence of the aorticopulmonary window is seen dating back to 09/11/2017 and could rep resent underlying pulmonary arterial hypertension. CABG changes of the chest are noted with enlarged cardiac silhouette. Mild interstitial prominence is similar to the prior and chronic. There is diffus e osseous demineralization. IMPRESSION: Findings highly suspicious for posterior basilar segment unifocal pneumonia. Given the l ocation aspiration could be considered.
[2017-08-31 11:21] LABS: Potassium 5.5 mmol/L (3.5-5.1)
[2017-08-31] MEDS: SODIUM CHLORIDE 0.9% 500 ML IV SCH ×2 (11:31→11:56)
[2017-08-31 11:47] LABS: Creatine Kinase MB 1.7 ng/mL (0.0-2.4)
[2017-08-31 11:58] LABS: Troponin I 0.063 ng/mL (0.000-0.034)
[2017-08-31] MEDS ORDERED: PNEUMONIA PROTOCOL UTILIZED 1 EACH MISC PO PRN (13:11)
[2017-08-31] MEDS ORDERED: hydrALAZINE HCL 20 MG/ML 1 ML VIAL IVP STA (14:04)
[2017-08-31] MEDS: hydrALAZINE HCL 50 MG TAB PO SCH ×2 (15:28→20:56)
[2017-08-31] MEDS: ISOSORBIDE MONONITRATE ER 30 MG TAB.ER.24H PO SCH (15:28)
[2017-08-31] MEDS: LISINOPRIL 5 MG TAB PO SCH (15:28)
[2017-08-31] MEDS ORDERED: LEVOFLOXACIN 750MG-D5W PMX 750 MG in DEXTROSE/WATER 1 150ML.BAG IVPB SCH (16:00)
[2017-08-31 16:36] LABS: Glucose,Whole Blood 180 mg/dL (75-99)
[2017-08-31] MEDS: INSULIN ASPART 100 UNIT/ML 1 ML 10 ML VIAL SQ SCH ×2 (17:08→20:47)
[2017-08-31] MEDS ORDERED: hydrALAZINE HCL 20 MG/ML 1 ML VIAL IVP PRN (18:09)
[2017-08-31] MEDS ORDERED: SALINE IVPB SCH (18:15)
[2017-08-31] MEDS ORDERED: LEVETIRACETAM IVPB SCH (18:15)
--- NOTE | 2017-08-31 18:17 | P.HPIM ---
History of Present Illness H&P Date: 08/31/17 Chief Complaint: Change, fever This is a 71-year-old male one of Dr. Lucas Gallo's patient with past medical history of hypertension, hyperlipidemia, diabetes, COPD, ,CHF , alcoholism and worsening heart failure who had open heart surgery with the CABG 2015 ended up having multiple complications and the multiple rehospitalization for worsening shortness of breath, A. fib and other complication. He was admitted from facility 08/11/2017 until when he stayed in bed without anybody checking on him for 2 days, and was found by a neighbor prior to his admission secondary to mental status changes, aspiration pneumonia, required ventilatory support August 19 to August 21, seen by Dr. Presley, Dr. Heriberto Mcbride. LP do that had ruled out encephalitis and CVA, he has bilateral pneumonia at that time and CHF with effusions, CT of the brain showed possibility of evolving subacute infarct internal capsule Patient was transferred from [facility] secondary to mental status changes obtundation, and was found to have a fever subsequently sent to the emergency room. Unknown whether the patient was feeding with assistance or supervised feedings, no family member was available at that time for evaluation , funez was most likely placed from the emergency room patient was lethargic when seen, he can follow commands, narcotics are held back, patient remains to be hypertensive highest blood pressure 201/93, T-max of 100.14 L pulse ox 94% to 99% labs shows double basic count 10.4, hemoglobin 10.9, creatinine 1.8 from a previous of 2.2 troponin of 0.063 blood sugar of 114 urinalysis shows urine WBC 182. Chest x-ray shows suspicious for posterior by basilar segment in a focal pneumonia aspiration pneumonia considered mild interstitial prominence chronic diffuse demineralization suspected pulmonary arterial hypertension Previous Imaging studies 08/12/17: Echocardiogram reveals EF of 50-55% with moderate concentric left ventricular hypertrophy, LA severely dilated at greater than 40, are appears enlarged, mild mitral calcification, mild mitral regurgitation, mild tricuspid regurgitation. Patient has been seen and evaluated by cardiology. Beta kojo was not started due to history of symptomatic bradycardia. Review of Systems ROS unobtainable: due to mental status Constitutional: Reports as per HPI, Reports poor appetite Ears, nose, mouth and throat: Reports as per HPI Cardiovascular: Reports as per HPI, Denies chest pain, Denies decreased exercise tolerance, Denies edema, Denies high blood pressure, Denies irregular heart beat, Denies leg edema, Denies palpitations, Denies shortness of breath, Denies syncope Respiratory: Reports as per HPI, Reports cough, Reports home oxygen Gastrointestinal: Reports as per HPI, Reports loss of appetite, Denies abdominal pain, Denies change in bowel habits, Denies diarrhea, Denies early satiety, Denies hematemesis, Denies hematochezia Genitourinary: Reports as per HPI Musculoskeletal: Reports as per HPI, Reports frequent falls Integumentary: Reports as per HPI Neurological: Reports as per HPI Past Medical History Past Medical History: Atrial Fibrillation, Coronary Artery Disease (CAD), Heart Failure, COPD, Diabetes Mellitus, GERD/Reflux, Hyperlipidemia, Hypertension, Myocardial Infarction ([place]), Musculoskeletal Disorder, Osteoarthritis (OA), Pneumonia, Prostate Disorder, Seizure Disorder, Sleep Apnea/CPAP/BIPAP Additional Past Medical History / Comment(s): Pt recently admitted [facility] 08/11/17 with metabolic encephalopathy with sepsis secondary to aspiration pneumonia/ UTI. Other HX: Nonsustained Vtach, pneumonias, severe GERD, TIA, Armas's Palsey, turinaty retention, phimosis, bilateral hydronephrosis, funez caths, suprapubic cath in past, chronic UTI'S, CATARACTS bilaterally, GOUT,DOES'NT USE CPAP KIDNEY STONE, BULGING DISCS, O2 3l nc most of the time, [place] 11/2013 and seizures with the [place] BPH, chronic low back pain, protein calorie malnutrition. 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 Past Anesthesia/Blood Transfusion Reactions: No Reported Reaction Smoking Status: Current every day smoker - Past Family History Father Family Medical History: Cancer, Dementia, Hyperlipidemia, Hypertension, Myocardial Infarction ([place]) Additional Family Medical History / Comment(s): AT AGE 78- Mother Family Medical History: No Reported History, Coronary Artery Disease (CAD), Dementia, Myocardial Infarction ([place]) Additional Family Medical History / Comment(s): AT AGE 86 Brother(s) Family Medical History: No Reported History Sister(s) Family Medical History: No Reported History, Rheumatoid Arthritis (RA) Son(s) Family Medical History: No Reported History Daughter(s) Family Medical History: No Reported History Medications and Allergies Home Medications Medication Instructions Recorded Confirmed Type Baclofen 10 mg PO HS 04/26/14 08/31/17 History Isosorbide Mononitrate ER [Imdur] 30 mg PO DAILY 04/26/14 08/31/17 History levETIRAcetam [Keppra] 750 mg PO BID 04/26/14 08/31/17 History Atorvastatin [Lipitor] 40 mg PO HS 06/14/14 08/31/17 History Omeprazole [PriLOSEC] 20 mg PO BID 04/18/16 08/31/17 History Potassium Chloride ER [K-Dur 20] 20 meq PO HS 05/05/16 08/31/17 History Montelukast [Singulair] 10 mg PO DAILY 06/16/16 08/31/17 History Albuterol Inhaler [Ventolin Hfa 2 puff INHALATION RT-QID PRN 08/11/17 08/31/17 History Inhaler] Budesonide [Pulmicort] 0.5 mg INHALATION RT-BID 08/11/17 08/31/17 History Ipratropium-Albuterol Nebulize 3 ml INHALATION RT-QID 08/11/17 08/31/17 History [Duoneb 0.5 mg-3 mg/3 ml Soln] Nitroglycerin Sl Tabs [Nitrostat] 0.4 mg SUBLINGUAL Q5M PRN 08/11/17 08/31/17 History Fluconazole [Diflucan] 100 mg PO DAILY #5 tab 08/26/17 08/31/17 Rx Furosemide [Lasix] 40 mg PO DAILY #0 tab 08/26/17 08/31/17 Rx HYDROcodone/APAP 5-325MG [[place] 1 tab PO TID #90 tab 08/26/17 08/31/17 Rx 5-325] PARoxetine [Paxil] 10 mg PO DAILY tab 08/26/17 08/31/17 Rx Sodium Bicarbonate Tab 650 mg PO BID tab 08/26/17 08/31/17 Rx Tamsulosin [Flomax] 0.4 mg PO PC-SUPPER cap.er.24h 08/26/17 08/31/17 Rx Insulin Aspart [NovoLOG See Protocol SQ ACHS 08/31/17 08/31/17 History (formulary)] Insulin Detemir [Levemir] 7 unit SQ DAILY 08/31/17 08/31/17 History Lisinopril [Zestril] 5 mg PO DAILY 08/31/17 08/31/17 History Metoprolol Tartrate [Lopressor] 12.5 mg PO BID 08/31/17 08/31/17 History Multivitamins, Thera [Multivitamin 1 tab PO HS 08/31/17 08/31/17 History (formulary)] Prostat Sugar Free 30 ml PO BID 08/31/17 08/31/17 History hydrALAZINE HCL [Apresoline] 100 mg PO TID 08/31/17 08/31/17 History Allergies Allergy/AdvReac Type Severity Reaction Status Date / Time adhesive AdvReac Unknown Verified 08/31/17 10:44 influenza virus vaccine, AdvReac Nausea & Verified 08/31/17 10:44 specific Vomiting & [Influenza Virus Diarrhea Vacc,Specific] Physical Exam Vitals: Vital Signs Temp Pulse Pulse Resp BP BP Pulse Ox 08/31/17 15:52 62 16 08/31/17 15:44 97.4 F L 62 16 153/81 99 08/31/17 14:28 97.9 F 57 L 20 149/87 97 08/31/17 13:00 60 20 188/88 94 L 08/31/17 11:30 60 20 201/93 97 08/31/17 10:45 24 08/31/17 10:40 100.1 F H 66 22 194/77 91 L 08/31/17 10:12 99.9 F H 65 22 213/91 92 L Intake and Output 08/31/17 08/31/17 08/31/17 06:59 14:59 22:59 Other: Voiding Method Indwelling Catheter Weight 74.435 kg - Constitutional General appearance: average body habitus, no acute distress - EENT Eyes: EOMI, PERRLA, dentition normal - Neck Neck: normal ROM - Respiratory Respiratory: bilateral: CTA, diminished, negative: dullness, rales, rhonchi - Cardiovascular Rhythm: regular Heart sounds: normal: S1, S2 Abnormal Heart Sounds: systolic murmur, no diastolic murmur, no rub, no S3 Gallop, no S4 Gallop, no click, no other - Gastrointestinal General gastrointestinal: normal bowel sounds, soft - Integumentary Integumentary: decreased turgor, normal - Neurologic Neurologic: CNII-XII intact - Musculoskeletal Musculoskeletal: gait normal, strength equal bilaterally - Psychiatric Psychiatric: A&O x's 3, intact judgment & insight Results CBC & Chem 7: 08/31/17 10:30 08/31/17 10:30 Labs: Abnormal Lab Results - Last 24 Hours (Table) 08/31/17 08/31/17 08/31/17 Range/Units 10:30 10:30 10:30 RBC 3.98 L (4.30-5.90) m/uL Hgb 10.9 L (13.0-17.5) gm/dL Hct 34.2 L (39.0-53.0) % Neutrophils # 8.4 H (1.3-7.7) k/uL INR (<1.2) Potassium 5.5 H (3.5-5.1) mmol/L BUN 40 H (9-20) mg/dL Creatinine 1.81 H (0.66-1.25) mg/dL Glucose 114 H (74-99) mg/dL POC Glucose (mg/dL) (75-99) mg/dL Calcium 8.0 L (8.4-10.2) mg/dL ALT 15 L (21-72) U/L Total Creatine Kinase 47 L (55-170) U/L Troponin I 0.063 H* (0.000-0.034) ng/mL Albumin 2.6 L (3.5-5.0) g/dL Urine Protein (Negative) Urine Glucose (UA) (Negative) Urine Ketones (Negative) Urine Blood (Negative) Ur Leukocyte Esterase (Negative) Urine RBC (0-5) /hpf Urine WBC (0-5) /hpf Urine WBC Clumps (None) /hpf 08/31/17 08/31/17 08/31/17 Range/Units 10:30 10:30 16:33 RBC (4.30-5.90) m/uL Hgb (13.0-17.5) gm/dL Hct (39.0-53.0) % Neutrophils # (1.3-7.7) k/uL INR 1.2 H (<1.2) Potassium (3.5-5.1) mmol/L BUN (9-20) mg/dL Creatinine (0.66-1.25) mg/dL Glucose (74-99) mg/dL POC Glucose (mg/dL) 180 H (75-99) mg/dL Calcium (8.4-10.2) mg/dL ALT (21-72) U/L Total Creatine Kinase (55-170) U/L Troponin I (0.000-0.034) ng/mL Albumin (3.5-5.0) g/dL Urine Protein 3+ H (Negative) Urine Glucose (UA) Trace H (Negative) Urine Ketones 1+ H (Negative) Urine Blood Small H (Negative) Ur Leukocyte Esterase Large H (Negative) Urine RBC 142 H (0-5) /hpf Urine WBC >182 H (0-5) /hpf Urine WBC Clumps Many H (None) /hpf Laboratory Results WBC 10.4 k/uL (3.8-10.6) 08/31/17 10:30 RBC 3.98 m/uL (4.30-5.90) L 08/31/17 10:30 Hgb 10.9 gm/dL (13.0-17.5) L 08/31/17 10:30 Hct 34.2 % (39.0-53.0) L 08/31/17 10:30 MCV 85.9 fL (80.0-100.0) 08/31/17 10:30 MCH 27.5 pg (25.0-35.0) 08/31/17 10:30 MCHC 32.0 g/dL (31.0-37.0) 08/31/17 10:30 RDW 15.2 % (11.5-15.5) 08/31/17 10:30 Plt Count 220 k/uL (150-450) 08/31/17 10:30 Neutrophils % 81 % 08/31/17 10:30 Lymphocytes % 10 % 08/31/17 10:30 Monocytes % 7 % 08/31/17 10:30 Eosinophils % 1 % 08/31/17 10:30 Basophils % 0 % 08/31/17 10:30 Neutrophils # 8.4 k/uL (1.3-7.7) H 08/31/17 10:30 Lymphocytes # 1.1 k/uL (1.0-4.8) 08/31/17 10:30 Monocytes # 0.7 k/uL (0-1.0) 08/31/17 10:30 Eosinophils # 0.1 k/uL (0-0.7) 08/31/17 10:30 Basophils # 0.0 k/uL (0-0.2) 08/31/17 10:30 PT 11.7 sec (9.0-12.0) 08/31/17 10:30 INR 1.2 (<1.2) H 08/31/17 10:30 APTT 25.9 sec (22.0-30.0) 08/31/17 10:30 Sodium 143 mmol/L (137-145) 08/31/17 10:30 Potassium 5.5 mmol/L (3.5-5.1) H 08/31/17 10:30 Chloride 107 mmol/L (98-107) 08/31/17 10:30 Carbon Dioxide 22 mmol/L (22-30) 08/31/17 10:30 Anion Gap 14 mmol/L 08/31/17 10:30 BUN 40 mg/dL (9-20) H 08/31/17 10:30 Creatinine 1.81 mg/dL (0.66-1.25) H 08/31/17 10:30 Est GFR (CKD-EPI)AfAm 42 (>60 ml/min/1.73 sqM) 08/31/17 10:30 Est GFR (CKD-EPI)NonAf 36 (>60 ml/min/1.73 sqM) 08/31/17 10:30 Glucose 114 mg/dL (74-99) H 08/31/17 10:30 POC Glucose (mg/dL) 180 mg/dL (75-99) H 08/31/17 16:33 POC Glu Environmental Studies Department Chair ID Yesy Root 08/31/17 16:33 Plasma Lactic Acid [place] 1.1 mmol/L (0.7-2.0) 08/31/17 10:30 Calcium 8.0 mg/dL (8.4-10.2) L 08/31/17 10:30 Total Bilirubin 0.7 mg/dL (0.2-1.3) 08/31/17 10:30 AST 31 U/L (17-59) 08/31/17 10:30 ALT 15 U/L (21-72) L 08/31/17 10:30 Alkaline Phosphatase 119 U/L (38-126) 08/31/17 10:30 Total Creatine Kinase 47 U/L (55-170) L 08/31/17 10:30 CK-MB (CK-2) 1.7 ng/mL (0.0-2.4) 08/31/17 10:30 CK-MB (CK-2) Rel Index 3.6 08/31/17 10:30 Troponin I 0.063 ng/mL (0.000-0.034) H* 08/31/17 10:30 Total Protein 6.5 g/dL (6.3-8.2) 08/31/17 10:30 Albumin 2.6 g/dL (3.5-5.0) L 08/31/17 10:30 Urine Color Yellow 08/31/17 10:30 Urine Appearance Turbid (Clear) 08/31/17 10:30 Urine pH 6.0 (5.0-8.0) 08/31/17 10:30 Ur Specific [place] 1.016 (1.001-1.035) 08/31/17 10:30 Urine Protein 3+ (Negative) H 08/31/17 10:30 Urine Glucose (UA) Trace (Negative) H 08/31/17 10:30 Urine Ketones 1+ (Negative) H 08/31/17 10:30 Urine Blood Small (Negative) H 08/31/17 10:30 Urine Nitrite Negative (Negative) 08/31/17 10:30 Urine Bilirubin Negative (Negative) 08/31/17 10:30 Urine Urobilinogen <2.0 mg/dL (<2.0) 08/31/17 10:30 Ur Leukocyte Esterase Large (Negative) H 08/31/17 10:30 Urine RBC 142 /hpf (0-5) H 08/31/17 10:30 Urine WBC >182 /hpf (0-5) H 08/31/17 10:30 Urine WBC Clumps Many /hpf (None) H 08/31/17 10:30 Influenza Type A RNA Not Detected (Not Detectd) 08/31/17 10:30 Influenza Type B (PCR) Not Detected (Not Detectd) 08/31/17 10:30 Thrombosis Risk Factor Assmnt - DVT/VTE Prophylaxis DVT/VTE Prophylaxis: Pharmacologic Prophylaxis ordered - Choose All That Apply Any of the Below Risk Factors Present?: Yes Each Factor Represents 1 point: Abnormal pulmonary function (COPD), Medical pt on bed rest, Serious lung disease incl. pneumonia (< 1month) Other Risk Factors: Yes Each Risk Factor Represents 2 Points: Age 61-74 years Other congenital or acquired thrombophilia - If yes, enter type in comment: No Thrombosis Risk Factor Assessment Total Risk Factor Score: 5 Thrombosis Risk Factor Assessment Level: High Risk Assessment and Plan Plan: 1. Recurrent Metabolic encephalopathy with sepsis sources include aspiration pneumonia and UTI . [place] discontinued. LP. Consult neurology Dr. santo and Dr. Louis., EEG of the brain, maintenance Keppra, Levaquin and Zosyn IV, pending cultures for blood in urine. Possibly narcotic related, hold off narcotics at this time 2. Acute hypoxic respiratory with previous history of mechanical ventilation August 18 to 08/21/2017 f Continue with aggressive pulmonary toileting, monitor the patient very closely. O2 by cannula, 3. Elevated troponin, secondary to sepsis without evidence of acute coronary syndrome. History off elevation of troponin also during his last visit, the chronic in nature 4. CK D stage III with recent acute failure secondary to ATN secondary to sepsis and hemodynamic instability . Monitor for renal decompensation 5. Arrhythmia history with prior Nonsustained ventricular tachycardia on 2015 H and was seen by cardiology echocardiogramJuly 2016 showed atrial fibrillation with small pericardial effusion noted ejection fraction 45-50% inferolateral hypokinesis with palpation of LA size over 40. Electrolyte management is optimized 6. History bilateral hydronephrosis mild, improved from last ultrasound history Phimosis with urinary retention resolved monitor for urinary retention continue tamsulosin 7. CAD post CABG. continue aspirin 81 mg orally once every day, 8. Diabetes mellitus type II: levmir 7units at bedtime along with pre-meal however with the sugars being low, , NovoLog sliding scale, 9. Hypertensive cardiovascular disease. ,continue hydralazine 100 mg 3 times daily, hold Lopressor 25 mg twice daily bradycardia, hydralazine 10 mg IV push every 64hours as needed. 10. Hyperlipidemia: Currently off statin. 11. Chronic A. fib. Patient is no longer on Coumadin. This may be related to risk of falls. 12. compensated chronic systolic and possible diastolic heart failure. Lasix ordered on a daily will need to be addressed on daily basis 12. Recurrent depression: Has been on Paxil 10 mg daily.Xanax at bedtime-- discontinued 13. Seizure history: Has been on Keppra 750 g twice a day with no new seizure activity. Keppra changed to IV. 14. BPH: Resume Flomax. Funez catheter 15. Severe GERD: Will add Protonix 40 mg daily 16. Rhabdomyolysis, hold Lipitor 17. Sacral decubitus stage I secondary to prolonged immobilization , overlay mattress and frequent turning 18. Hypernatremia. Nephrology is following. 19. Severe protein calorie malnutrition due to lack of oral intake. Dietitian consult requested. 20. Chronic low back pain. [place] 5 three times daily as needed resumed. Discharge plan: Subacute rehab [facility] return
[2017-08-31] MEDS ORDERED: ACETAMINOPHEN SUPPOSITORY 650 MG SUPP RECTAL PRN (18:18)
[2017-08-31] MEDS: levETIRAcetam IV 750 MG in SODIUM CHLORIDE 0.9% 100 ML IVPB SCH (18:42)
[2017-08-31] MEDS: METOPROLOL TARTRATE 12.5 MG TAB PO SCH (19:38)
[2017-08-31] MEDS: PIPERACILLIN-TAZOBACTAM 3.375 GM in DEXTROSE/WATER 1 50ML.BAG IVPB SCH (19:47)
[2017-08-31] MEDS: BUDESONIDE 0.5 MG/2 ML NEBU INHALATION SCH (19:58)
[2017-08-31] MEDS: IPRATROPIUM-ALBUTEROL 3 ML NEB INHALATION PRN (19:58)
[2017-08-31 20:45] LABS: Glucose,Whole Blood 136 mg/dL (75-99)
[2017-08-31] MEDS: SODIUM BICARBONATE TAB 650 MG TAB PO SCH (20:56)
[2017-08-31] MEDS: INSULIN DETEMIR 100 UNIT/ML 10 ML VIAL SQ SCH (20:59)
[2017-08-31] MEDS ORDERED: levETIRAcetam 250 MG TAB PO SCH (21:00)
[2017-08-31] MEDS ORDERED: INSULIN ASPART 100 UNIT/ML 1 ML 10 ML VIAL SQ SCH (21:00)
[2017-08-31] MEDS ORDERED: NON-FORMULARY DRUG (Hydralazine Hcl [Apresoline] 100 MG) PO SCH (22:00)
[2017-08-31 22:58] LABS: Hemoglobin A1C 7.8 % (4.0-6.0)
[2017-09-01] MEDS: PIPERACILLIN-TAZOBACTAM 3.375 GM in DEXTROSE/WATER 1 50ML.BAG IVPB SCH ×3 (04:28→19:59)
[2017-09-01 06:08] LABS: Glucose,Whole Blood 106 mg/dL (75-99)
[2017-09-01] MEDS: INSULIN ASPART 100 UNIT/ML 1 ML 10 ML VIAL SQ SCH ×4 (06:11→20:44)
[2017-09-01 06:25] LABS: Basophils % (A) 0 %; Eosinophils # (A) 0.1 k/uL (0-0.7); Eosinophils % (A) 2 %; HCT 32.8 % (39.0-53.0); HGB 10.2 gm/dL (13.0-17.5); Lymphocytes # (A) 1.1 k/uL (1.0-4.8); Lymphocytes % (A) 12 %; MCHC 31.2 g/dL (31.0-37.0); MCV 86.4 fL (80.0-100.0); Mean Platelet Volume 8.3; Monocytes # (A) 0.6 k/uL (0-1.0); Monocytes % (A) 7 %; Neutrophils # (A) 7.1 k/uL (1.3-7.7); Neutrophils % (A) 78 %; Platelet Count 225 k/uL (150-450); RDW 15.2 % (11.5-15.5); WBC 9.1 k/uL (3.8-10.6)
[2017-09-01 06:39] LABS: Albumin 2.1 g/dL (3.5-5.0); Calcium 7.7 mg/dL (8.4-10.2); Potassium 4.1 mmol/L (3.5-5.1); Total Bilirubin 0.3 mg/dL (0.2-1.3); Total Protein 5.4 g/dL (6.3-8.2)
[2017-09-01] MEDS: levETIRAcetam IV 750 MG in SODIUM CHLORIDE 0.9% 100 ML IVPB SCH ×2 (06:52→18:40)
[2017-09-01] MEDS: BUDESONIDE 0.5 MG/2 ML NEBU INHALATION SCH (08:00)
[2017-09-01] MEDS: IPRATROPIUM-ALBUTEROL 3 ML NEB INHALATION PRN (08:00)
[2017-09-01] MEDS: ISOSORBIDE MONONITRATE ER 30 MG TAB.ER.24H PO SCH (08:30)
[2017-09-01] MEDS: PARoxetine 10 MG TAB PO SCH (08:30)
[2017-09-01] MEDS: LISINOPRIL 5 MG TAB PO SCH (08:30)
[2017-09-01] MEDS: hydrALAZINE HCL 50 MG TAB PO SCH ×3 (08:30→19:59)
[2017-09-01] MEDS: SODIUM BICARBONATE TAB 650 MG TAB PO SCH ×2 (08:31→19:59)
[2017-09-01] MEDS: METOPROLOL TARTRATE 12.5 MG TAB PO SCH ×2 (11:24→19:49)
[2017-09-01 13:09] LABS: Glucose,Whole Blood 217 mg/dL (75-99)
--- NOTE | 2017-09-01 13:22 | FL ---
EXAMINATION TYPE: FL barium swallow w video DATE OF EXAM: 09/01/2017 COMPARISON: NONE HISTORY: Rule out aspiration TECHNIQUE: Fluoroscopy. FINDINGS: Fluoroscopic guidance was provided for the procedure performed in conjunction with the [facility] pathology department. Please see complete report forthcoming from the Speech Pathology departmen t. Various consistencies from thin liquid to solids were administered. Fluoroscopy time 2 minutes 52 seconds Number of images: 0. No aspiration or penetration was evident. No significant pooling was observed in the vallecula. Some residual within the vallecula may be prese nt from some early spill. No aspiration was evident. There was normal propulsion of the bolus. IMPRESSION: 1. Essentially normal modified barium swallow. Some minimal spill into the vallecula may be present. Please see speech pathology report forthcoming.
--- NOTE | 2017-09-01 13:38 | XR ---
EXAMINATION TYPE: XR chest 2V DATE OF EXAM: 09/01/2017 COMPARISON: Chest x-ray from yesterday. HISTORY: Cough. TECHNIQUE: Frontal and lateral views of the chest are obtained. FINDINGS: Post-CABG changes with mediastinal clips and sternal wires is identified. Cardiac silhouett e size is within normal limits with atherosclerotic and ectatic thoracic aorta. There are persistent small to moderate-sized right greater than left pleural effusions. There is associated bibasilar atel ectasis and/or infiltrate seen best on lateral view. Some contrast from recent barium swallow is note d in the distal half of the esophagus. IMPRESSION: Persistent small to moderate-sized right greater than left pleural effusions with associ ated bibasilar atelectasis and/or infiltrate. Contrast-filled distal esophagus 90 minutes after proce dure raises concern for significant gastroesophageal reflux. Correlate clinically.
[2017-09-01] MEDS: FLUCONAZOLE 100 MG TAB PO SCH (14:16)
[2017-09-01] MEDS: HEPARIN SODIUM,PORCINE 5,000 UNIT/ML 1 ML VIAL SQ SCH ×3 (14:19→23:49)
[2017-09-01] MEDS ORDERED: NITROGLYCERIN SL TABS 0.4 MG TAB SUBLINGUAL PRN (14:47)
--- NOTE | 2017-09-01 14:51 | P.PN ---
Subjective Progress Note Date: 09/01/17 This is a 71-year-old male one of Dr. Lucas Gallo's patient with past medical history of hypertension, hyperlipidemia, diabetes, COPD, ,CHF , alcoholism and worsening heart failure who had open heart surgery with the CABG 2015 ended up having multiple complications and the multiple rehospitalization for worsening shortness of breath, A. fib and other complication. He was admitted from facility 08/11/2017 until when he stayed in bed without anybody checking on him for 2 days, and was found by a neighbor prior to his admission secondary to mental status changes, aspiration pneumonia, required ventilatory support August 19 to August 21, seen by Dr. Presley, Dr. Heriberto Mcbride. LP do that had ruled out encephalitis and CVA, he has bilateral pneumonia at that time and CHF with effusions, CT of the brain showed possibility of evolving subacute infarct internal capsule Patient was transferred from [facility] secondary to mental status changes obtundation, and was found to have a fever subsequently sent to the emergency room. Unknown whether the patient was feeding with assistance or supervised feedings, no family member was available at that time for evaluation , funez was most likely placed from the emergency room patient was lethargic when seen, he can follow commands, narcotics are held back, patient remains to be hypertensive highest blood pressure 201/93, T-max of 100.14 L pulse ox 94% to 99% labs shows double basic count 10.4, hemoglobin 10.9, creatinine 1.8 from a previous of 2.2 troponin of 0.063 blood sugar of 114 urinalysis shows urine WBC 182. Chest x-ray shows suspicious for posterior by basilar segment in a focal pneumonia aspiration pneumonia considered mild interstitial prominence chronic diffuse demineralization suspected pulmonary arterial hypertension Previous Imaging studies 08/12/17: Echocardiogram reveals EF of 50-55% with moderate concentric left ventricular hypertrophy, LA severely dilated at greater than 40, are appears enlarged, mild mitral calcification, mild mitral regurgitation, mild tricuspid regurgitation. Patient has been seen and evaluated by cardiology. Beta kojo was not started due to history of symptomatic bradycardia. 09/01: Patient has been afebrile since admission. Pulse ox is 90-93% on 2-3 L nasal cannula. Pulse is running in the 50s. Blood pressure is slightly on the high side. The Lantus 40 creatinine 2.03. Urine culture is in progress. Speech therapy is following and planning for modified barium swallow. Consults with Dr. Louis and Dr. Nicholas are pending. There is concern that mental status changes are related to possible uncontrolled seizures. Patient has been maintained on Keppra. Reviewed previous cultures and Diflucan has been added. Sputum cultures been ordered. Repeat chest x-ray shows persistent small to moderate size right greater than left pleural effusions with associated bibasilar atelectasis and/or infiltrate. Contrast-filled distal esophagus after her procedure raises concern for significant gastroesophageal reflux. Consult with Dr. Ballard added for possible aspiration pneumonia. Patient is more alert from admission. He denies any abdominal pain, cough, headache. Objective - Vital Signs Vital signs: Vital Signs Temp 98.8 F 09/01/17 08:00 Pulse 56 L 09/01/17 08:19 Resp 16 09/01/17 08:00 BP 188/74 09/01/17 08:00 Pulse Ox 90 L 09/01/17 08:02 Intake & Output 08/31/17 09/01/17 09/01/17 18:59 06:59 18:59 Intake Total 100 100 Output Total 550 Balance 100 -450 Weight 74.435 kg 76.5 kg Intake: IV 100 100 Piperacillin-Tazobactam 3 100 .375 gm In Dextrose/Water 1 50ml.bag @ 12.5 mls/hr IVPB Q8H [facility] Rx#: [id number] levETIRAcetam IV 750 mg 100 In Sodium Chloride 0.9% 100 ml @ 400 mls/hr IVPB Q12H [facility] Rx#:[id number] Oral 0 Output: Urine 550 Other: Voiding Method Indwelling Catheter Indwelling Catheter # Bowel Movements 1 - Exam General appearance: average body habitus, no acute distress - EENT Eyes: EOMI, PERRLA, dentition normal - Neck Neck: normal ROM - Respiratory Respiratory: bilateral: CTA, diminished, negative: dullness, rales, rhonchi - Cardiovascular Rhythm: regular Heart sounds: normal: S1, S2 Abnormal Heart Sounds: systolic murmur, no diastolic murmur, no rub, no S3 Gallop, no S4 Gallop, no click, no other - Gastrointestinal General gastrointestinal: normal bowel sounds, soft - Integumentary Integumentary: decreased turgor, normal - Neurologic Neurologic: CNII-XII intact - Musculoskeletal Musculoskeletal: gait normal, strength equal bilaterally - Psychiatric Psychiatric: A&O x's 2, intact judgment & insight - Labs CBC & Chem 7: 09/01/17 05:51 09/01/17 05:51 Labs: Abnormal Lab Results - Last 24 Hours (Table) 08/31/17 08/31/17 08/31/17 Range/Units 10:30 10:30 10:30 RBC 3.98 L (4.30-5.90) m/uL Hgb 10.9 L (13.0-17.5) gm/dL Hct 34.2 L (39.0-53.0) % Neutrophils # 8.4 H (1.3-7.7) k/uL INR (<1.2) Potassium 5.5 H (3.5-5.1) mmol/L Chloride (98-107) mmol/L BUN 40 H (9-20) mg/dL Creatinine 1.81 H (0.66-1.25) mg/dL Glucose 114 H (74-99) mg/dL POC Glucose (mg/dL) (75-99) mg/dL Hemoglobin A1c (4.0-6.0) % Calcium 8.0 L (8.4-10.2) mg/dL ALT 15 L (21-72) U/L Total Creatine Kinase 47 L (55-170) U/L Troponin I 0.063 H* (0.000-0.034) ng/mL Total Protein (6.3-8.2) g/dL Albumin 2.6 L (3.5-5.0) g/dL Urine Protein (Negative) Urine Glucose (UA) (Negative) Urine Ketones (Negative) Urine Blood (Negative) Ur Leukocyte Esterase (Negative) Urine RBC (0-5) /hpf Urine WBC (0-5) /hpf Urine WBC Clumps (None) /hpf 08/31/17 08/31/17 08/31/17 Range/Units 10:30 10:30 10:30 RBC (4.30-5.90) m/uL Hgb (13.0-17.5) gm/dL Hct (39.0-53.0) % Neutrophils # (1.3-7.7) k/uL INR 1.2 H (<1.2) Potassium (3.5-5.1) mmol/L Chloride (98-107) mmol/L BUN (9-20) mg/dL Creatinine (0.66-1.25) mg/dL Glucose (74-99) mg/dL POC Glucose (mg/dL) (75-99) mg/dL Hemoglobin A1c 7.8 H (4.0-6.0) % Calcium (8.4-10.2) mg/dL ALT (21-72) U/L Total Creatine Kinase (55-170) U/L Troponin I (0.000-0.034) ng/mL Total Protein (6.3-8.2) g/dL Albumin (3.5-5.0) g/dL Urine Protein 3+ H (Negative) Urine Glucose (UA) Trace H (Negative) Urine Ketones 1+ H (Negative) Urine Blood Small H (Negative) Ur Leukocyte Esterase Large H (Negative) Urine RBC 142 H (0-5) /hpf Urine WBC >182 H (0-5) /hpf Urine WBC Clumps Many H (None) /hpf 08/31/17 08/31/17 09/01/17 Range/Units 16:33 20:44 05:51 RBC 3.80 L (4.30-5.90) m/uL Hgb 10.2 L (13.0-17.5) gm/dL Hct 32.8 L (39.0-53.0) % Neutrophils # (1.3-7.7) k/uL INR (<1.2) Potassium (3.5-5.1) mmol/L Chloride (98-107) mmol/L BUN (9-20) mg/dL Creatinine (0.66-1.25) mg/dL Glucose (74-99) mg/dL POC Glucose (mg/dL) 180 H 136 H (75-99) mg/dL Hemoglobin A1c (4.0-6.0) % Calcium (8.4-10.2) mg/dL ALT (21-72) U/L Total Creatine Kinase (55-170) U/L Troponin I (0.000-0.034) ng/mL Total Protein (6.3-8.2) g/dL Albumin (3.5-5.0) g/dL Urine Protein (Negative) Urine Glucose (UA) (Negative) Urine Ketones (Negative) Urine Blood (Negative) Ur Leukocyte Esterase (Negative) Urine RBC (0-5) /hpf Urine WBC (0-5) /hpf Urine WBC Clumps (None) /hpf 09/01/17 09/01/17 Range/Units 05:51 06:06 RBC (4.30-5.90) m/uL Hgb (13.0-17.5) gm/dL Hct (39.0-53.0) % Neutrophils # (1.3-7.7) k/uL INR (<1.2) Potassium (3.5-5.1) mmol/L Chloride 109 H (98-107) mmol/L BUN 40 H (9-20) mg/dL Creatinine 2.03 H (0.66-1.25) mg/dL Glucose 105 H (74-99) mg/dL POC Glucose (mg/dL) 106 H (75-99) mg/dL Hemoglobin A1c (4.0-6.0) % Calcium 7.7 L (8.4-10.2) mg/dL ALT (21-72) U/L Total Creatine Kinase (55-170) U/L Troponin I (0.000-0.034) ng/mL Total Protein 5.4 L (6.3-8.2) g/dL Albumin 2.1 L (3.5-5.0) g/dL Urine Protein (Negative) Urine Glucose (UA) (Negative) Urine Ketones (Negative) Urine Blood (Negative) Ur Leukocyte Esterase (Negative) Urine RBC (0-5) /hpf Urine WBC (0-5) /hpf Urine WBC Clumps (None) /hpf Microbiology - Last 24 Hours (Table) 08/31/17 10:30 Urine Culture - Preliminary Urine,Voided Assessment and Plan Plan: 1. Recurrent Metabolic encephalopathy with sepsis sources include aspiration pneumonia and UTI possible uncontrolled seizures to be evaluated. [place] discontinued. Consult Dr. nicholas and Dr. Louis., EEG of the brain, maintenance Keppra, Levaquin and Zosyn IV, pending cultures for blood in urine. Possibly narcotic related, hold off narcotics at this time. Modified barium swallow. Repeat chest x-ray as above. Diflucan added. 2. Acute hypoxic respiratory with previous history of mechanical ventilation August 18 to 08/21/2017. Continue with aggressive pulmonary toileting, monitor the patient very closely. O2 by cannula. Consult with Dr. Ballard for possible aspiration pneumonia. 3. Elevated troponin, secondary to sepsis without evidence of acute coronary syndrome. History of elevation of troponin also during his last visit, the chronic in nature 4. CKD stage III with recent acute failure secondary to ATN secondary to sepsis. Monitor for renal decompensation 5. Arrhythmia history with prior Nonsustained ventricular tachycardia on 2015 H and was seen by cardiology echocardiogramJuly 2016 showed atrial fibrillation with small pericardial effusion noted ejection fraction 45-50% inferolateral hypokinesis with palpation of LA size over 40. Electrolyte management is optimized 6. History bilateral hydronephrosis mild, improved from last ultrasound history Phimosis with urinary retention resolved monitor for urinary retention continue tamsulosin 7. CAD post CABG. continue aspirin 81 mg orally once every day, 8. Diabetes mellitus type II: levmir 7units at bedtime along with NovoLog sliding scale, 9. Hypertensive cardiovascular disease. ,continue hydralazine 100 mg 3 times daily, Lopressor 12.5 mg twice daily, hydralazine. 10. Hyperlipidemia: Currently off statin. 11. Chronic A. fib. Patient is no longer on Coumadin. This may be related to risk of falls. 12. Compensated chronic systolic and possible diastolic heart failure. Lasix ordered on a daily will need to be addressed on daily basis 12. Recurrent depression: Has been on Paxil 10 mg daily.Xanax at bedtime-- discontinued 13. Seizure history: Has been on Keppra 750 g twice a day with no new seizure activity. Keppra changed to IV. 14. BPH: Resume Flomax. Funez catheter 15. Severe GERD: Will add Protonix 40 mg daily 16. Rhabdomyolysis, hold Lipitor 17. Sacral decubitus stage I secondary to prolonged immobilization , overlay mattress and frequent turning 19. Severe protein calorie malnutrition due to lack of oral intake. Dietitian consult requested. 20. Chronic low back pain. Vallejo on hold due to mental status changes. Discharge plan: Subacute rehab [facility] Impression and plan of care have been directed as dictated by the signing physician. Carly Greene nurse practitioner acting as scribe for signing physician.
[2017-09-01] MEDS: IPRATROPIUM-ALBUTEROL 3 ML NEB INHALATION SCH ×2 (15:22→19:17)
--- NOTE | 2017-09-01 16:19 | P.CNPUL ---
<Shruti Thrasher - Last Filed: 09/01/17 15:37> History of Present Illness Consult date: 09/01/17 Requesting physician: Ericka Thompson Reason for consult: dyspnea, abnormal CXR/CT Chief complaint: Altered mental status, fever History of present illness: This is a pleasant 71-year-old gentleman who follows with Dr. Lucas Gallo as his primary care physician. He has multiple chronic conditions including coronary artery disease with previous coronary artery bypass grafting, atrial fibrillation, diastolic congestive heart failure with a preserved left ventricular systolic function with ejection fraction 50-55%., chronic obstructive pulmonary disease and is a former smoker and is oxygen dependent, obstructive sleep apnea but does not wear CPAP, diabetes mellitus, alcoholism, hypertension, hyperlipidemia, osteoarthritis, seizure disorder, prostate disorder, previous suprapubic catheter. The patient is a poor historian and has a history of dementia. He is awake and alert but is disoriented to place and time. He is unsure why he was brought here to the hospital and he was unsure of where he was living prior. He was most recently discharged from here on 08/26/2017 to [facility]. He was brought in at that time after neighbors found him in bed probably for at least 2 days incontinent of stool not likely to have been eating. He had developed acute sepsis and renal failure with metabolic encephalopathy. He eventually developed acute respiratory failure requiring intubation and mechanical ventilation. He had Streptococcus pneumoniae septicemia. Cerebrospinal fluid revealed no growth. We followed the patient during the hospitalization as well. His chest x-ray had revealed bibasilar airspace disease left greater than right. ID had been on the case and the patient was initially on Zosyn and Diflucan that were eventually discontinued secondary to his 2 week length of stay. The patient was brought back to the emergency room yesterday from the [facility] as a noted altered mental status and he was having fevers. He also had a loose nonproductive cough. Chest x-ray again shows small to moderate size right greater than left pleural effusions with associated bibasilar atelectasis. He did have a T-max of 101.1. He is now on Zosyn and Levaquin. Influenza screen is negative. Urinalysis is positive for greater than 182 WBCs. Cultures pending. The patient is seen today in consultation on the selective care unit. He is currently resting in bed. He is quite cachectic and frail appearing. He is awake and oriented to person only. He is a poor historian. Difficult to get much information. He does have a loose nonproductive cough. Barium swallow revealed essentially normal results. No clear evidence of aspiration. He is maintaining good O2 saturations in the low 90s on 2 L/m per nasal cannula. Currently afebrile. Hemodynamically stable. WBC 9.1. Hemoglobin 10.2. Creatinine 2.03. This was 2.22 on discharge. Review of Systems ROS unobtainable: due to mental status Past Medical History Past Medical History: Atrial Fibrillation, Coronary Artery Disease (CAD), Heart Failure, COPD, Diabetes Mellitus, GERD/Reflux, Hyperlipidemia, Hypertension, Myocardial Infarction (IA), Musculoskeletal Disorder, Osteoarthritis (OA), Pneumonia, Prostate Disorder, Seizure Disorder, Sleep Apnea/CPAP/BIPAP Additional Past Medical History / Comment(s): Pt recently admitted [facility] 08/11/17 with metabolic encephalopathy with sepsis secondary to aspiration pneumonia/UTI and suspected Streptococcus pneumoniae bacteremia. Other HX: Nonsustained Vtach, pneumonias, severe GERD, TIA, Armas's Palsey, turinaty retention, phimosis , bilateral hydronephrosis, funez caths, suprapubic cath in past, chronic UTI'S , CATARACTS bilaterally, GOUT,DOES'NT USE CPAP KIDNEY STONE, BULGING DISCS, O2 3l nc most of the time, IA 11/2013 and seizures with the IA BPH, chronic low back pain, protein calorie malnutrition. 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 Past Anesthesia/Blood Transfusion Reactions: No Reported Reaction Smoking Status: Current every day smoker - Past Family History Father Family Medical History: Cancer, Dementia, Hyperlipidemia, Hypertension, Myocardial Infarction (IA) Additional Family Medical History / Comment(s): AT AGE 78- Mother Family Medical History: No Reported History, Coronary Artery Disease (CAD), Dementia, Myocardial Infarction (IA) Additional Family Medical History / Comment(s): AT AGE 86 Brother(s) Family Medical History: No Reported History Sister(s) Family Medical History: No Reported History, Rheumatoid Arthritis (RA) Son(s) Family Medical History: No Reported History Daughter(s) Family Medical History: No Reported History Medications and Allergies Home Medications Medication Instructions Recorded Confirmed Type Baclofen 10 mg PO HS 04/26/14 08/31/17 History Isosorbide Mononitrate ER [Imdur] 30 mg PO DAILY 04/26/14 08/31/17 History levETIRAcetam [Keppra] 750 mg PO BID 04/26/14 08/31/17 History Atorvastatin [Lipitor] 40 mg PO HS 06/14/14 08/31/17 History Omeprazole [PriLOSEC] 20 mg PO BID 04/18/16 08/31/17 History Potassium Chloride ER [K-Dur 20] 20 meq PO HS 05/05/16 08/31/17 History Montelukast [Singulair] 10 mg PO DAILY 06/16/16 08/31/17 History Albuterol Inhaler [Ventolin Hfa 2 puff INHALATION RT-QID PRN 08/11/17 08/31/17 History Inhaler] Budesonide [Pulmicort] 0.5 mg INHALATION RT-BID 08/11/17 08/31/17 History Ipratropium-Albuterol Nebulize 3 ml INHALATION RT-QID 08/11/17 08/31/17 History [Duoneb 0.5 mg-3 mg/3 ml Soln] Nitroglycerin Sl Tabs [Nitrostat] 0.4 mg SUBLINGUAL Q5M PRN 08/11/17 08/31/17 History Fluconazole [Diflucan] 100 mg PO DAILY #5 tab 08/26/17 08/31/17 Rx Furosemide [Lasix] 40 mg PO DAILY #0 tab 08/26/17 08/31/17 Rx HYDROcodone/APAP 5-325MG [News[place] 1 tab PO TID #90 tab 08/26/17 08/31/17 Rx 5-325] PARoxetine [Paxil] 10 mg PO DAILY tab 08/26/17 08/31/17 Rx Sodium Bicarbonate Tab 650 mg PO BID tab 08/26/17 08/31/17 Rx Tamsulosin [Flomax] 0.4 mg PO PC-SUPPER cap.er.24h 08/26/17 08/31/17 Rx Insulin Aspart [NovoLOG See Protocol SQ ACHS 08/31/17 08/31/17 History (formulary)] Insulin Detemir [Levemir] 7 unit SQ DAILY 08/31/17 08/31/17 History Lisinopril [Zestril] 5 mg PO DAILY 08/31/17 08/31/17 History Metoprolol Tartrate [Lopressor] 12.5 mg PO BID 08/31/17 08/31/17 History Multivitamins, Thera [Multivitamin 1 tab PO HS 08/31/17 08/31/17 History (formulary)] Prostat Sugar Free 30 ml PO BID 08/31/17 08/31/17 History hydrALAZINE HCL [Apresoline] 100 mg PO TID 08/31/17 08/31/17 History Allergies Allergy/AdvReac Type Severity Reaction Status Date / Time adhesive AdvReac Unknown Verified 08/31/17 10:44 influenza virus vaccine, AdvReac Nausea & Verified 08/31/17 10:44 specific Vomiting & [Influenza Virus Diarrhea Vacc,Specific] Physical Exam Vitals: Vital Signs Temp Pulse Pulse Resp BP Pulse Ox 09/01/17 15:23 56 L 09/01/17 12:00 97.5 F L 55 L 18 138/72 92 L 09/01/17 08:19 56 L 09/01/17 08:02 54 L 90 L 09/01/17 08:00 98.8 F 53 L 16 188/74 93 L 09/01/17 04:00 98.5 F 50 L 17 140/81 95 09/01/17 00:00 97.2 F L 54 L 16 144/72 97 08/31/17 20:14 64 08/31/17 20:00 97.6 F 60 47 L 18 149/71 98 08/31/17 18:21 44 L 15 143/69 96 08/31/17 15:52 62 16 08/31/17 15:44 97.4 F L 62 16 153/81 99 Intake and Output 09/01/17 09/01/17 09/01/17 06:59 14:59 22:59 Intake Total 50 100 Output Total 550 Balance 50 -450 Intake: IV 50 100 Piperacillin-Tazobactam 3 50 .375 gm In Dextrose/Water 1 50ml.bag @ 12.5 mls/hr IVPB Q8H [facility] Rx#: [id number] levETIRAcetam IV 750 mg 100 In Sodium Chloride 0.9% 100 ml @ 400 mls/hr IVPB Q12H [facility] Rx#:[id number] Oral 0 Output: Urine 550 Other: Voiding Method Indwelling Catheter Indwelling Catheter # Bowel Movements 1 Weight 76.5 kg 63 kg GENERAL EXAM: Frail, cachectic. Oriented times one. Alert, comfortable in no apparent distress. HEAD: Normocephalic. EYES: Normal reaction of pupils, equal size. NOSE: Clear with pink turbinates. THROAT: No erythema or exudates. NECK: No masses, no JVD. CHEST: No chest wall deformity. LUNGS: Equal air entry with basilar crackles right greater than left. Diminished. Scattered rhonchi. CVS: S1 and S2 normal with no audible murmur, irregular rhythm. ABDOMEN: No hepatosplenomegaly, normal bowel sounds, no guarding or rigidity. SPINE: Kyphoscoliosis SKIN: No rashes CENTRAL NERVOUS SYSTEM: No focal deficits, tone is normal in all 4 extremities. EXTREMITIES: There is no peripheral edema. No clubbing, no cyanosis. Peripheral pulses are intact. Results - Laboratory Findings CBC and BMP: 09/01/17 05:51 09/01/17 05:51 PT/INR, D-dimer PT 11.7 sec (9.0-12.0) 08/31/17 10:30 INR 1.2 (<1.2) H 08/31/17 10:30 Abnormal lab findings: Abnormal Labs 08/31/17 08/31/17 08/31/17 10:30 10:30 10:30 RBC 3.98 L Hgb 10.9 L Hct 34.2 L Neutrophils # 8.4 H INR Potassium 5.5 H Chloride BUN 40 H Creatinine 1.81 H Glucose 114 H POC Glucose (mg/dL) Hemoglobin A1c Calcium 8.0 L ALT 15 L Total Creatine Kinase 47 L Troponin I 0.063 H* Total Protein Albumin 2.6 L Urine Protein Urine Glucose (UA) Urine Ketones Urine Blood Ur Leukocyte Esterase Urine RBC Urine WBC Urine WBC Clumps 08/31/17 08/31/17 08/31/17 10:30 10:30 10:30 RBC Hgb Hct Neutrophils # INR 1.2 H Potassium Chloride BUN Creatinine Glucose POC Glucose (mg/dL) Hemoglobin A1c 7.8 H Calcium ALT Total Creatine Kinase Troponin I Total Protein Albumin Urine Protein 3+ H Urine Glucose (UA) Trace H Urine Ketones 1+ H Urine Blood Small H Ur Leukocyte Esterase Large H Urine RBC 142 H Urine WBC >182 H Urine WBC Clumps Many H 08/31/17 08/31/17 09/01/17 16:33 20:44 05:51 RBC 3.80 L Hgb 10.2 L Hct 32.8 L Neutrophils # INR Potassium Chloride BUN Creatinine Glucose POC Glucose (mg/dL) 180 H 136 H Hemoglobin A1c Calcium ALT Total Creatine Kinase Troponin I Total Protein Albumin Urine Protein Urine Glucose (UA) Urine Ketones Urine Blood Ur Leukocyte Esterase Urine RBC Urine WBC Urine WBC Clumps 09/01/17 09/01/17 09/01/17 05:51 06:06 13:07 RBC Hgb Hct Neutrophils # INR Potassium Chloride 109 H BUN 40 H Creatinine 2.03 H Glucose 105 H POC Glucose (mg/dL) 106 H 217 H Hemoglobin A1c Calcium 7.7 L ALT Total Creatine Kinase Troponin I Total Protein 5.4 L Albumin 2.1 L Urine Protein Urine Glucose (UA) Urine Ketones Urine Blood Ur Leukocyte Esterase Urine RBC Urine WBC Urine WBC Clumps - Diagnostic Findings Chest x-ray: image reviewed Assessment and Plan Assessment: Impression: #1 Altered mental status secondary to suspected urinary tract infection. #2 Febrile illness secondary to above. #3 Acute on chronic hypoxic respiratory failure secondary to small to moderate right greater than left pleural effusions associated with bibasilar atelectasis/ infiltrate. Most likely secondary to acute exacerbation of diastolic congestive heart failure and suspected healthcare acquired pneumonia. #4 Acute on chronic renal failure. #5 Anemia of chronic disease. #6 Cachexia with protein calorie malnutrition. #7 History of oxygen dependent chronic obstructive pulmonary disease with chronic tobacco dependence. #8 History of obstructive sleep apnea and not utilizing CPAP in the outpatient setting. #9 Coronary artery disease with previous coronary artery bypass grafting. #10 Atrial fibrillation not on anticoagulants in the outpatient setting. #11 Recent hospitalization for metabolic encephalopathy, sepsis secondary to Streptococcus pneumoniae bacteremia. Required intubation and mechanical ventilatory support. #12 Diabetes mellitus. #13 History of alcoholism. #14 History of hypertension. #15 Hyperlipidemia. #16 Osteoarthritis. #17 Seizure disorder. #18 History of prostate disorder. #19 History of supra pubic catheter. #20 Poor overall functional performance based on the above-mentioned multiple comorbidities. Plan: The patient was seen and evaluated by Dr. Ballard. Chest x-ray and labs were reviewed. Currently maintaining O2 saturations in the 90s on 2 L/m per nasal cannula. The patient is currently on Zosyn and Levaquin. No aspiration noted on barium swallow. We will continue DuoNeb inhalations 4 times a day and when necessary, Pulmicort and Perforomist inhalations twice a day. He is currently on heparin for DVT prophylaxis. Protonix for GI prophylaxis. The patient's overall prognosis remains quite guarded and poor. On most recent admission his son had still wanted him to remain a full code. He is not available for further conversation at this time. In the interim, we'll continue with full supportive care. We'll continue to follow and make further recommendations based on his clinical status. I, the cosigning physician, performed a history & physical examination of the patient. Lungs sounds have crackles in the bilateral posterior bases. Maintaining good O2 saturations in the 90s on 2 L/m per nasal cannula. I discussed the assessment and plan of care with my nurse practitioner, Shruti Thrasher. I attest to the above note as dictated by her. Time with Patient: Greater than 30 <Zaki Ballard - Last Filed: 09/01/17 16:49> Physical Exam Vitals: Vital Signs Temp Pulse Pulse Resp BP Pulse Ox 09/01/17 16:00 58 L 16 09/01/17 15:30 60 09/01/17 15:23 56 L 09/01/17 12:00 97.5 F L 55 L 18 138/72 92 L 09/01/17 08:19 56 L 09/01/17 08:02 54 L 90 L 09/01/17 08:00 98.8 F 53 L 16 188/74 93 L 09/01/17 04:00 98.5 F 50 L 17 140/81 95 09/01/17 00:00 97.2 F L 54 L 16 144/72 97 08/31/17 20:14 64 08/31/17 20:00 97.6 F 60 47 L 18 149/71 98 08/31/17 18:21 44 L 15 143/69 96 Intake and Output 09/01/17 09/01/17 09/01/17 06:59 14:59 22:59 Intake Total 50 100 Output Total 550 Balance 50 -450 Intake: IV 50 100 Piperacillin-Tazobactam 3 50 .375 gm In Dextrose/Water 1 50ml.bag @ 12.5 mls/hr IVPB Q8H [facility] Rx#: [id number] levETIRAcetam IV 750 mg 100 In Sodium Chloride 0.9% 100 ml @ 400 mls/hr IVPB Q12H [facility] Rx#:[id number] Oral 0 Output: Urine 550 Other: Voiding Method Indwelling Catheter Indwelling Catheter Indwelling Catheter # Bowel Movements 1 Weight 76.5 kg 63 kg Results - Laboratory Findings CBC and BMP: 09/01/17 05:51 09/01/17 05:51 PT/INR, D-dimer PT 11.7 sec (9.0-12.0) 08/31/17 10:30 INR 1.2 (<1.2) H 08/31/17 10:30 Abnormal lab findings: Abnormal Labs 08/31/17 08/31/17 08/31/17 10:30 10:30 10:30 RBC 3.98 L Hgb 10.9 L Hct 34.2 L Neutrophils # 8.4 H INR Potassium 5.5 H Chloride BUN 40 H Creatinine 1.81 H Glucose 114 H POC Glucose (mg/dL) Hemoglobin A1c Calcium 8.0 L ALT 15 L Total Creatine Kinase 47 L Troponin I 0.063 H* Total Protein Albumin 2.6 L Urine Protein Urine Glucose (UA) Urine Ketones Urine Blood Ur Leukocyte Esterase Urine RBC Urine WBC Urine WBC Clumps 08/31/17 08/31/17 08/31/17 10:30 10:30 10:30 RBC Hgb Hct Neutrophils # INR 1.2 H Potassium Chloride BUN Creatinine Glucose POC Glucose (mg/dL) Hemoglobin A1c 7.8 H Calcium ALT Total Creatine Kinase Troponin I Total Protein Albumin Urine Protein 3+ H Urine Glucose (UA) Trace H Urine Ketones 1+ H Urine Blood Small H Ur Leukocyte Esterase Large H Urine RBC 142 H Urine WBC >182 H Urine WBC Clumps Many H 08/31/17 08/31/17 09/01/17 16:33 20:44 05:51 RBC 3.80 L Hgb 10.2 L Hct 32.8 L Neutrophils # INR Potassium Chloride BUN Creatinine Glucose POC Glucose (mg/dL) 180 H 136 H Hemoglobin A1c Calcium ALT Total Creatine Kinase Troponin I Total Protein Albumin Urine Protein Urine Glucose (UA) Urine Ketones Urine Blood Ur Leukocyte Esterase Urine RBC Urine WBC Urine WBC Clumps 09/01/17 09/01/17 09/01/17 05:51 06:06 13:07 RBC Hgb Hct Neutrophils # INR Potassium Chloride 109 H BUN 40 H Creatinine 2.03 H Glucose 105 H POC Glucose (mg/dL) 106 H 217 H Hemoglobin A1c Calcium 7.7 L ALT Total Creatine Kinase Troponin I Total Protein 5.4 L Albumin 2.1 L Urine Protein Urine Glucose (UA) Urine Ketones Urine Blood Ur Leukocyte Esterase Urine RBC Urine WBC Urine WBC Clumps 09/01/17 16:33 RBC Hgb Hct Neutrophils # INR Potassium Chloride BUN Creatinine Glucose POC Glucose (mg/dL) 174 H Hemoglobin A1c Calcium ALT Total Creatine Kinase Troponin I Total Protein Albumin Urine Protein Urine Glucose (UA) Urine Ketones Urine Blood Ur Leukocyte Esterase Urine RBC Urine WBC Urine WBC Clumps Assessment and Plan Assessment: Ration has likely bilateral pneumonia with small right-sided pleural effusion. He has multiple medical problems and comorbidities. He presented with fever and hypoxemia. Currently on Zosyn and Levaquin. Stable. custodial resident. Obviously hospital-acquired pneumonia cannot be completely ruled out. He is recent hospitalization was for a pneumococcal pneumonia septicemia that was treated appropriately. We'll continue to follow. Chest x-ray was reviewed.
[2017-09-01] MEDS ORDERED: BUDESONIDE 0.5 MG/2 ML NEBU INHALATION ONE (16:30)
[2017-09-01 16:35] LABS: Glucose,Whole Blood 174 mg/dL (75-99)
--- NOTE | 2017-09-01 16:35 | CONS ---
CONSULTATION DATE OF SERVICE: 09/01/2017 REASON FOR CONSULTATION: Recurrent aspiration pneumonia. HISTORY OF PRESENT ILLNESS: The patient is a 71-year-old male who did have a recent prolonged hospital stay, as the patient did have a component of aspiration pneumonia, possible CVA. The patient subsequently was transferred to the rehab for rehabilitation. The patient has been sent back to the [facility] ER from the [facility] with mental status changes and fever and possible pneumonia. There is no clear history of any more nausea, vomiting or any choking on the food. The patient was evaluated by the ER physician on arrival, where the patient had a chest x-ray showing findings suspicious for posterior basilar segment unifocal pneumonia. Patient did have a low-grade fever of 100.1. His white count was normal. No UA was done. Patient did have blood cultures, which are currently pending. Patient has been started on Levaquin and Zosyn. Infectious Disease was consulted for further recommendations regarding his recurrent aspiration pneumonia. Patient completed video fluoroscopic swallow which shows essentially normal modified barium swallow; some minimal spill into the vallecula may be present. Patient is currently afebrile. He seems to be breathing comfortably; however, he is slightly lethargic and did not answer most of the questions that were asked no nausea, no vomiting or any diarrhea per the nursing staff. REVIEW OF SYSTEMS: Review of systems could not be reliably obtained, but the positive points have been mentioned in the HPI. PAST MEDICAL HISTORY: 1. Atrial fibrillation. 2. Coronary artery disease. 3. Heart failure. 4. COPD. 5. Diabetes mellitus. 6. Gastroesophageal reflux disease. 7. Hypertension. 8. Hyperlipidemia. 9. Seizure disorder. 10.History of prostate disorder. 11.Sleep apnea. 12.TIA, CVA. PAST SURGICAL HISTORY: 1. Coronary artery bypass grafting. 2. Heart catheterization. 3. Bladder surgery. SOCIAL HISTORY: Remote history of smoking; quit back in 2012. No drinking or drug use. FAMILY HISTORY: Father with history of dementia and MO. Mother with history of MO, dementia. ALLERGIES: INFLUENZA VACCINE. CURRENT MEDICATIONS: 1. Flomax. 2. K-Dur. 3. Piperacillin tazobactam. 4. Paxil. 5. Protonix. 6. Nitrostat. 7. Theragran. 8. Lopressor. 9. Zestril. 10.Levaquin. 11.Lamictal. 12.Imdur. 13.NovoLog. 14.Hydralazine. 15.Heparin. 16.Lasix. 17.Pulmicort. 18.DuoNeb. PHYSICAL EXAMINATION: Blood pressure is 188/74 with a pulse of 53, temperature of 98.8. He is 93% on 3 L nasal cannula. General description is an elderly male lying in bed in no distress. No tachypnea or accessory muscle of respiration use. HEENT examination shows slight pallor. No scleral icterus. Oral mucosa membrane is moist. No pharyngeal erythema or thrush. NECK: Trachea is central. No thyromegaly. LUNGS: Unlabored breathing. Decreased breath sounds at the bases. No wheeze. HEART: S1, S2. Regular rate and rhythm. ABDOMEN: Soft. No tenderness. No guarding or rigidity. EXTREMITIES: No edema of the feet. SKIN EXAMINATION: No rash or mass palpable. Neurologically patient is awake, alert, oriented x3. Mood and affect normal. LABS: Hemoglobin 10.2, white count 9.1. BUN of 40, creatinine 2.03. Urine culture currently pending. Blood culture has been negative. DIAGNOSTIC IMPRESSION AND PLAN: Patient admitted to hospital with mental status changes and fever with a new infiltrate seen on the chest x-ray, likely suspicion for aspiration pneumonia in a patient who has been in and out of the hospital for the resistant Gram-negative pathogen such as Pseudomonas . PLAN: 1. Will obtain sputum for Gram stain and culture and sensitivity. 2. Strict aspiration precautions. 3. Continue patient on Zosyn 3.375 grams . 4. Depending upon his clinical response as well as cultures, will adjust the medication further if needed. Thank you for this consultation. Will follow this patient along with you. MMODL / IJN: [id number] /
[2017-09-01] MEDS: TAMSULOSIN 0.4 MG CAP.ER.24H PO SCH (17:36)
[2017-09-01] MEDS: BUDESONIDE 1 MG/2 ML NEBU INHALATION SCH (19:17)
--- NOTE | 2017-09-01 19:29 | EEG ---
ELECTROENCEPHALOGRAM REPORT DATE OF SERVICE: 09/01/2017 REASON FOR TESTING: Altered mental status and seizures. CURRENT ANTIEPILEPTIC MEDICATIONS: Keppra. DESCRIPTION OF THE PROCEDURE: This EEG was performed using a 21-channel digital electroencephalograph, following international 10-20 system. DESCRIPTION OF THE RECORDING: From the beginning of the tracing, and with the patient's eyes closed, the background rhythm was mostly consisting of 7 Hz theta frequency in the posterior occipital leads. No obvious asymmetry is seen. Photic stimulation was performed with no driving response seen. No pathological waves were elicited. Occasional movement artifacts and muscle artifacts are seen. The patient does reach stage II of sleep during the tracing and occasional sleep spindles are seen. No obvious epileptiform discharges were seen. His EKG lead showed an irregularly irregular rhythm with a normal rate. INTERPRETATION: This asleep and awake EEG is abnormal due to the presence of generalized slowing of the background rhythm, mostly in the theta range. This is consistent with mild encephalopathy. No epileptiform discharges were seen. The absence of epileptiform discharges does not rule out the diagnosis of epilepsy; therefore clinical correlation is recommended. Of note, his EKG lead showed an irregularly irregular rhythm with a normal rate. MMODL / IJN: [id number] /
[2017-09-01] MEDS: FORMOTEROL FUMARATE 20 MCG/2 ML NEBU INHALATION SCH (19:37)
[2017-09-01] MEDS: POTASSIUM CHLORIDE ER 20 MEQ TAB.ER PO SCH (19:59)
[2017-09-01] MEDS: MULTIVITAMINS, THERA 1 EACH TAB PO SCH (19:59)
[2017-09-01 20:20] LABS: Glucose,Whole Blood 191 mg/dL (75-99)
[2017-09-01] MEDS: INSULIN DETEMIR 100 UNIT/ML 10 ML VIAL SQ SCH (20:44)
--- NOTE | 2017-09-01 22:50 | CONS ---
CONSULTATION DATE OF CONSULTATION: 09/01/2017. CHIEF COMPLAINT: Altered mental status. HISTORY OF PRESENT ILLNESS: Mr. Hdez is a pleasant 71-year-old, male, who is being evaluated by the neurology service per the request of Dr. Thompson for altered mental status. The patient was brought into [facility] Emergency Room for altered mental status. The patient also had a fever. His workup in the emergency room showed evidence of pneumonia and urinary tract infection. His urinalysis showed greater than 182 WBCs with large leukocyte esterase. His comprehensive metabolic profile showed renal insufficiency with a BUN of 40 and creatinine of 2.03. His CBC showed anemia with a hemoglobin of 10.2 and hematocrit of 32%. The patient was started on IV antibiotics and admitted for further workup and management. At the time of my evaluation, he is lying in his bed and appears to be in no acute distress. He is slightly drowsy, but is oriented x3. He denies any lateralizing numbness or weakness. PAST MEDICAL HISTORY: Atrial fibrillation, coronary artery disease, congestive heart failure, chronic obstructive pulmonary disease, diabetes, gastroesophageal reflux disease, dyslipidemia, hypertension, history of myocardial infarction, arthritis, chronic pain syndrome, seizure disorder, obstructive sleep apnea, chronic low back pain, benign prostatic hypertrophy, history of bladder surgery, coronary artery bypass grafting, history of benign parotid gland tumor, status post resection. SOCIAL HISTORY: The patient is a current every day smoker. There is history of alcohol use. He denies any drug use. FAMILY HISTORY: Positive for cancer, heart disease, hypertension and dementia. HOME MEDICATIONS: Reviewed in the chart. ALLERGIES: ADHESIVE TAPE and INFLUENZA VACCINE. REVIEW OF SYSTEMS: As mentioned above and otherwise negative. PHYSICAL EXAM: Vital signs show a temperature of 97.5, pulse 56, respiration 18, blood pressure 138/72. GENERAL APPEARANCE: The patient is a well-developed, elderly male who appears to be slightly drowsy. HEENT: Normocephalic, atraumatic. No facial asymmetry is seen. NECK: Supple with no masses felt. CARDIOVASCULAR: Bradycardic rate with a regular rhythm. ABDOMEN: Nontender, nondistended. Extremities showed no edema or clubbing. NEUROLOGICAL: The patient is awake, but slightly drowsy. He is oriented x3. Speech and language are normal. Strength is 4+/5 in bilateral lower extremities and 5-/5 in bilateral upper extremities. No pronator drift is seen. Sensory exam was normal to light touch in all 4 extremities. No facial asymmetry is seen on cranial nerve testing. IMPRESSION: 1. Altered mental status. 2. Infectious encephalopathy. 3. Pneumonia. 4. Urinary tract infection. 5. History of seizures. RECOMMENDATION: The patient's altered mental status appears to be improved, as he is oriented x3 at the time of my evaluation. He likely had both infectious and metabolic encephalopathy, given his pneumonia, urinary tract infection and renal insufficiency. Continue IV antibiotics and IV hydration as tolerated. As for his history of seizures, continue Keppra at his home dose. No further inpatient neurological workup is needed. I will continue to follow with you as needed. Thank you for allowing me to participate in the care of your patient. If you have any questions, please feel free to contact me. RUBY / JAYLENE: [id number] /
[2017-09-02] MEDS: PIPERACILLIN-TAZOBACTAM 3.375 GM in DEXTROSE/WATER 1 50ML.BAG IVPB SCH ×3 (04:57→20:19)
[2017-09-02 06:14] LABS: Basophils % (A) 1 %; Eosinophils # (A) 0.3 k/uL (0-0.7); Eosinophils % (A) 4 %; HCT 31.1 % (39.0-53.0); Lymphocytes # (A) 0.8 k/uL (1.0-4.8); Lymphocytes % (A) 11 %; MCH 27.4 pg (25.0-35.0); MCHC 32.3 g/dL (31.0-37.0); MCV 84.7 fL (80.0-100.0); Mean Platelet Volume 8.2; Monocytes # (A) 0.7 k/uL (0-1.0); Monocytes % (A) 9 %; Neutrophils # (A) 5.6 k/uL (1.3-7.7); Neutrophils % (A) 73 %; Platelet Count 222 k/uL (150-450); RBC 3.67 m/uL (4.30-5.90); WBC 7.6 k/uL (3.8-10.6)
[2017-09-02 06:22] LABS: Glucose,Whole Blood 109 mg/dL (75-99)
[2017-09-02 06:26] LABS: Albumin 2.2 g/dL (3.5-5.0); Calcium 7.8 mg/dL (8.4-10.2); Potassium 3.9 mmol/L (3.5-5.1); Total Bilirubin 0.3 mg/dL (0.2-1.3); Total Protein 5.6 g/dL (6.3-8.2)
[2017-09-02] MEDS: INSULIN ASPART 100 UNIT/ML 1 ML 10 ML VIAL SQ SCH ×4 (06:33→21:30)
[2017-09-02] MEDS: levETIRAcetam IV 750 MG in SODIUM CHLORIDE 0.9% 100 ML IVPB SCH (06:38)
[2017-09-02] MEDS: PANTOPRAZOLE 40 MG TABLET PO SCH (06:38)
[2017-09-02] MEDS: FORMOTEROL FUMARATE 20 MCG/2 ML NEBU INHALATION SCH ×2 (08:37→20:48)
[2017-09-02] MEDS: IPRATROPIUM-ALBUTEROL 3 ML NEB INHALATION SCH ×4 (08:37→20:48)
[2017-09-02] MEDS: BUDESONIDE 1 MG/2 ML NEBU INHALATION SCH ×2 (08:37→20:48)
[2017-09-02] MEDS: FLUCONAZOLE 100 MG TAB PO SCH (08:42)
[2017-09-02] MEDS: HEPARIN SODIUM,PORCINE 5,000 UNIT/ML 1 ML VIAL SQ SCH ×2 (08:42→17:21)
[2017-09-02] MEDS: hydrALAZINE HCL 50 MG TAB PO SCH ×3 (08:43→21:25)
[2017-09-02] MEDS: FUROSEMIDE 40 MG TAB PO SCH (08:43)
[2017-09-02] MEDS: LISINOPRIL 5 MG TAB PO SCH (08:43)
[2017-09-02] MEDS: ISOSORBIDE MONONITRATE ER 30 MG TAB.ER.24H PO SCH (08:43)
[2017-09-02] MEDS: METOPROLOL TARTRATE 12.5 MG TAB PO SCH ×2 (08:44→20:25)
[2017-09-02] MEDS: PARoxetine 10 MG TAB PO SCH (08:44)
[2017-09-02] MEDS: SODIUM BICARBONATE TAB 650 MG TAB PO SCH ×2 (08:45→21:26)
[2017-09-02 11:44] LABS: Glucose,Whole Blood 159 mg/dL (75-99)
[2017-09-02 12:02] VITALS: BMI 19.0
[2017-09-02] MEDS: amLODIPine 5 MG TAB PO SCH ×2 (12:35→20:24)
--- NOTE | 2017-09-02 13:27 | PN ---
PROGRESS NOTE DATE OF SERVICE: 09/02/2017. REASON FOR FOLLOWUP: Aspiration pneumonia, recurrent. INTERVAL HISTORY: The patient is afebrile. He seemed to be breathing more comfortably. He was unable to feed himself. No choking was noted. No nausea, no vomiting. No abdominal pain. No diarrhea. EXAMINATION: Blood pressure 173/88 with a pulse of 79, temperature of 97.8. He is 98% 3 L nasal cannula. General description is an elderly male up in the bed in no distress. RESPIRATORY SYSTEM: Unlabored breathing with decreased breath sounds in the bases. No wheeze. HEART: S1, S2. Regular rate and rhythm. ABDOMEN: Soft, no tenderness. LABS: Hemoglobin is 10, white count 7.6. BUN of 32, creatinine 1.78. Blood and urine cultures have been negative. DIAGNOSTIC IMPRESSION AND PLAN: Patient admitted to the hospital with a fever, concern for likely recurrent aspiration pneumonia. Blood cultures have been negative. Patient unable to provide any sputum. Currently on Zosyn that can be transitioned to oral Avelox 400 daily for 7 days on discharge with close outpatient followup, especially to prevent recurrent aspiration. Plan of care discussed with the admitting team. MMODL / IJN: [id number] /
--- NOTE | 2017-09-02 13:39 | P.PN ---
Subjective Progress Note Date: 09/02/17 This is a 71-year-old male one of Dr. Lucas Gallo's patient with past medical history of hypertension, hyperlipidemia, diabetes, COPD, ,CHF , alcoholism and worsening heart failure who had open heart surgery with the CABG 2015 ended up having multiple complications and the multiple rehospitalization for worsening shortness of breath, A. fib and other complication. He was admitted from facility 08/11/2017 until when he stayed in bed without anybody checking on him for 2 days, and was found by a neighbor prior to his admission secondary to mental status changes, aspiration pneumonia, required ventilatory support August 19 to August 21, seen by Dr. Presley, Dr. Heriberto Mcbride. LP do that had ruled out encephalitis and CVA, he has bilateral pneumonia at that time and CHF with effusions, CT of the brain showed possibility of evolving subacute infarct internal capsule Patient was transferred from [facility] secondary to mental status changes obtundation, and was found to have a fever subsequently sent to the emergency room. Unknown whether the patient was feeding with assistance or supervised feedings, no family member was available at that time for evaluation , funez was most likely placed from the emergency room patient was lethargic when seen, he can follow commands, narcotics are held back, patient remains to be hypertensive highest blood pressure 201/93, T-max of 100.14 L pulse ox 94% to 99% labs shows double basic count 10.4, hemoglobin 10.9, creatinine 1.8 from a previous of 2.2 troponin of 0.063 blood sugar of 114 urinalysis shows urine WBC 182. Chest x-ray shows suspicious for posterior by basilar segment in a focal pneumonia aspiration pneumonia considered mild interstitial prominence chronic diffuse demineralization suspected pulmonary arterial hypertension Previous Imaging studies 08/12/17: Echocardiogram reveals EF of 50-55% with moderate concentric left ventricular hypertrophy, LA severely dilated at greater than 40, are appears enlarged, mild mitral calcification, mild mitral regurgitation, mild tricuspid regurgitation. Patient has been seen and evaluated by cardiology. Beta kojo was not started due to history of symptomatic bradycardia. 09/01: Patient has been afebrile since admission. Pulse ox is 90-93% on 2-3 L nasal cannula. Pulse is running in the 50s. Blood pressure is slightly on the high side. The Lantus 40 creatinine 2.03. Urine culture is in progress. Speech therapy is following and planning for modified barium swallow. Consults with Dr. Louis and Dr. Nicholas are pending. There is concern that mental status changes are related to possible uncontrolled seizures. Patient has been maintained on Keppra. Reviewed previous cultures and Diflucan has been added. Sputum cultures been ordered. Repeat chest x-ray shows persistent small to moderate size right greater than left pleural effusions with associated bibasilar atelectasis and/or infiltrate. Contrast-filled distal esophagus after her procedure raises concern for significant gastroesophageal reflux. Consult with Dr. Ballard added for possible aspiration pneumonia. Patient is more alert from admission. He denies any abdominal pain, cough, headache. 09/02: Patient has been seen by Dr. Louis with recommendations to continue Zosyn and aspiration precautions. Patient is followed by Dr. Ballard for bilateral pneumonia with small right sided pleural effusion and recommend continuing Levaquin and Zosyn. EEG is abnormal due to presence of generalized slowing of the background rhythm mostly in the theta range. This is consistent with mild encephalopathy. No epileptiform discharges were seen. Patient has been seen by Dr. Nicholas for metabolic encephalopathy due to pneumonia and UTI and renal insufficiency. Continue Keppra at home dose. No further neuro workup is necessary and Dr. Nicholas is following on an as-needed basis. Pulse ox is 99% on 3 L nasal cannula. Patient has been afebrile. White count is normal. BUN is 32 and creatinine 1.78. Speech therapy performed modified barium swallow that was within functional level for patient's advanced age. Diet recommendation is mechanical soft with thin liquids. He is alert and oriented 3. 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 Patient denies any cough. He states he is feeling well. He did eat 75% of his breakfast today and Magic cup in addition. Dr. Louis has recommended Avelox for discharge. Plan is to monitor overnight and discharge tomorrow. Objective - Vital Signs Vital signs: Vital Signs Temp 98.3 F 09/02/17 04:00 Pulse 73 09/02/17 04:00 Resp 17 09/02/17 04:00 BP 191/88 09/02/17 04:00 Pulse Ox 99 09/02/17 04:00 Intake & Output 09/01/17 09/02/17 09/02/17 18:59 06:59 18:59 Intake Total 340 150 Output Total 900 520 Balance -560 -370 Weight 63 kg 58.5 kg Intake: IV 100 150 Piperacillin-Tazobactam 3 50 .375 gm In Dextrose/Water 1 50ml.bag @ 12.5 mls/hr IVPB Q8H [facility] Rx#: [id number] levETIRAcetam IV 750 mg 100 100 In Sodium Chloride 0.9% 100 ml @ 400 mls/hr IVPB Q12H [facility] Rx#:[id number] Oral 240 Output: Urine 900 520 Other: Voiding Method Indwelling Catheter Indwelling Catheter # Bowel Movements 0 - Exam General appearance: average body habitus, no acute distress - EENT Eyes: EOMI, PERRLA, dentition normal - Neck Neck: normal ROM - Respiratory Respiratory: bilateral: CTA, diminished, negative: dullness, rales, rhonchi - Cardiovascular Rhythm: regular Heart sounds: normal: S1, S2 Abnormal Heart Sounds: systolic murmur, no diastolic murmur, no rub, no S3 Gallop, no S4 Gallop, no click, no other - Gastrointestinal General gastrointestinal: normal bowel sounds, soft - Integumentary Integumentary: decreased turgor, normal - Neurologic Neurologic: CNII-XII intact - Musculoskeletal Musculoskeletal: gait normal, strength equal bilaterally - Psychiatric Psychiatric: A&O x's 3, intact judgment & insight - Labs CBC & Chem 7: 09/02/17 05:54 09/02/17 05:54 Labs: Abnormal Lab Results - Last 24 Hours (Table) 09/01/17 09/01/17 09/01/17 Range/Units 13:07 16:33 20:19 RBC (4.30-5.90) m/uL Hgb (13.0-17.5) gm/dL Hct (39.0-53.0) % Lymphocytes # (1.0-4.8) k/uL Chloride (98-107) mmol/L BUN (9-20) mg/dL Creatinine (0.66-1.25) mg/dL Glucose (74-99) mg/dL POC Glucose (mg/dL) 217 H 174 H 191 H (75-99) mg/dL Calcium (8.4-10.2) mg/dL ALT (21-72) U/L Total Protein (6.3-8.2) g/dL Albumin (3.5-5.0) g/dL 09/02/17 09/02/17 09/02/17 Range/Units 05:54 05:54 06:21 RBC 3.67 L (4.30-5.90) m/uL Hgb 10.0 L (13.0-17.5) gm/dL Hct 31.1 L (39.0-53.0) % Lymphocytes # 0.8 L (1.0-4.8) k/uL Chloride 108 H (98-107) mmol/L BUN 32 H (9-20) mg/dL Creatinine 1.78 H (0.66-1.25) mg/dL Glucose 107 H (74-99) mg/dL POC Glucose (mg/dL) 109 H (75-99) mg/dL Calcium 7.8 L (8.4-10.2) mg/dL ALT 20 L (21-72) U/L Total Protein 5.6 L (6.3-8.2) g/dL Albumin 2.2 L (3.5-5.0) g/dL Microbiology - Last 24 Hours (Table) 08/31/17 10:30 Blood Culture - Preliminary Blood No Growth after 24 hours Assessment and Plan Plan: 1. Recurrent Metabolic encephalopathy with sepsis sources include gram- negative pneumonia and UTI possible uncontrolled seizures to be evaluated. [place] discontinued. Consult Dr. Nicholas and Dr. Louis., EEG as above, maintenance Keppra, Levaquin and Zosyn IV, pending cultures for blood in urine. Possibly narcotic related, hold off narcotics at this time. Modified barium swallow as above finding no abnormalities. Repeat chest x-ray as above. Diflucan added. 2. Acute hypoxic respiratory failure with previous history of mechanical ventilation August 18 to 08/21/2017. Continue with aggressive pulmonary toileting, monitor the patient very closely. O2 by cannula. Consult with Dr. Ballard for possible aspiration pneumonia. 3. Elevated troponin, secondary to sepsis without evidence of acute coronary syndrome. History of elevation of troponin also during his last visit, the chronic in nature 4. CKD stage III with recent acute failure secondary to ATN secondary to sepsis. Monitor for renal decompensation 5. Arrhythmia history with prior Nonsustained ventricular tachycardia on 2015 H and was seen by cardiology echocardiogramJuly 2016 showed atrial fibrillation with small pericardial effusion noted ejection fraction 45-50% inferolateral hypokinesis with palpation of LA size over 40. Electrolyte management is optimized 6. History bilateral hydronephrosis mild, improved from last ultrasound history Phimosis with urinary retention resolved monitor for urinary retention continue tamsulosin 7. CAD post CABG. continue aspirin 81 mg orally once every day, 8. Diabetes mellitus type II: levmir 7units at bedtime along with NovoLog sliding scale, 9. Hypertensive cardiovascular disease. ,continue hydralazine 100 mg 3 times daily, Lopressor 12.5 mg twice daily, hydralazine. 10. Hyperlipidemia: Currently off statin. 11. Chronic A. fib. Patient is no longer on Coumadin. This may be related to risk of falls. 12. Compensated chronic systolic and possible diastolic heart failure. Lasix ordered on a daily will need to be addressed on daily basis 12. Recurrent depression: Has been on Paxil 10 mg daily.Xanax at bedtime-- discontinued 13. Seizure history: Has been on Keppra 750 g twice a day with no new seizure activity. Keppra changed to IV. 14. BPH: Resume Flomax. Funez catheter 15. Severe GERD: Will add Protonix 40 mg daily 16. Rhabdomyolysis, hold Lipitor 17. Sacral decubitus stage I secondary to prolonged immobilization , overlay mattress and frequent turning 19. Severe protein calorie malnutrition due to lack of oral intake. Dietitian consult requested. 20. Chronic low back pain. [place] on hold due to mental status changes. Discharge plan: Return to [facility] on Tuesday. Social work is following. Impression and plan of care have been directed as dictated by the signing physician. Carly Greene nurse practitioner acting as scribe for signing physician.
--- NOTE | 2017-09-02 13:50 | P.DS ---
Providers Date of admission: 08/31/17 13:12 Expected date of discharge: 09/03/17 Attending physician: Ericka Thompson Consults: 08/31/17 18:12 Consult Physician Routine Consulting Provider: Reggie Louis Consult Reason/Comments: recurrent aspiration pneumonia Do you want consulting provider notified?: Yes 08/31/17 18:13 Consult Physician Routine Consulting Provider: Shanna Nicholas Consult Reason/Comments: metabolic enceph, obtundation Do you want consulting provider notified?: Yes 09/01/17 13:33 Consult Physician Routine Consulting Provider: Zaki Ballard Consult Reason/Comments: possible HAP Do you want consulting provider notified?: Yes [facility] Course: This is a 71-year-old male one of Dr. Lucas Gallo's patient with past medical history of hypertension, hyperlipidemia, diabetes, COPD, ,CHF , alcoholism and worsening heart failure who had open heart surgery with the CABG 2015 ended up having multiple complications and the multiple rehospitalization for worsening shortness of breath, A. fib and other complication. He was admitted from facility 08/11/2017 until when he stayed in bed without anybody checking on him for 2 days, and was found by a neighbor prior to his admission secondary to mental status changes, aspiration pneumonia, required ventilatory support August 19 to August 21, seen by Dr. Presley, Dr. Heriberto Mcbride. LP do that had ruled out encephalitis and CVA, he has bilateral pneumonia at that time and CHF with effusions, CT of the brain showed possibility of evolving subacute infarct internal capsule Patient was transferred from [facility] secondary to mental status changes obtundation, and was found to have a fever subsequently sent to the emergency room. Unknown whether the patient was feeding with assistance or supervised feedings, no family member was available at that time for evaluation , funez was most likely placed from the emergency room patient was lethargic when seen, he can follow commands, narcotics are held back, patient remains to be hypertensive highest blood pressure 201/93, T-max of 100.14 L pulse ox 94% to 99% labs shows double basic count 10.4, hemoglobin 10.9, creatinine 1.8 from a previous of 2.2 troponin of 0.063 blood sugar of 114 urinalysis shows urine WBC 182. Chest x-ray shows suspicious for posterior by basilar segment in a focal pneumonia aspiration pneumonia considered mild interstitial prominence chronic diffuse demineralization suspected pulmonary arterial hypertension Previous Imaging studies 08/12/17: Echocardiogram reveals EF of 50-55% with moderate concentric left ventricular hypertrophy, LA severely dilated at greater than 40, are appears enlarged, mild mitral calcification, mild mitral regurgitation, mild tricuspid regurgitation. Patient has been seen and evaluated by cardiology. Beta kojo was not started due to history of symptomatic bradycardia. 09/01: Patient has been afebrile since admission. Pulse ox is 90-93% on 2-3 L nasal cannula. Pulse is running in the 50s. Blood pressure is slightly on the high side. The Lantus 40 creatinine 2.03. Urine culture is in progress. Speech therapy is following and planning for modified barium swallow. Consults with Dr. Louis and Dr. Nicholas are pending. There is concern that mental status changes are related to possible uncontrolled seizures. Patient has been maintained on Keppra. Reviewed previous cultures and Diflucan has been added. Sputum cultures been ordered. Repeat chest x-ray shows persistent small to moderate size right greater than left pleural effusions with associated bibasilar atelectasis and/or infiltrate. Contrast-filled distal esophagus after her procedure raises concern for significant gastroesophageal reflux. Consult with Dr. Ballard added for possible aspiration pneumonia. Patient is more alert from admission. He denies any abdominal pain, cough, headache. 09/02: Patient has been seen by Dr. Louis with recommendations to continue Zosyn and aspiration precautions. Patient is followed by Dr. Ballard for bilateral pneumonia with small right sided pleural effusion and recommend continuing Levaquin and Zosyn. EEG is abnormal due to presence of generalized slowing of the background rhythm mostly in the theta range. This is consistent with mild encephalopathy. No epileptiform discharges were seen. Patient has been seen by Dr. Nicholas for metabolic encephalopathy due to pneumonia and UTI and renal insufficiency. Continue Keppra at home dose. No further neuro workup is necessary and Dr. Nicholas is following on an as-needed basis. Pulse ox is 99% on 3 L nasal cannula. Patient has been afebrile. White count is normal. BUN is 32 and creatinine 1.78. Speech therapy performed modified barium swallow that was within functional level for patient's advanced age. Diet recommendation is mechanical soft with thin liquids. He is alert and oriented 3. color television console monitor is atrial fibrillation rate controlled. Patient denies any cough. He states he is feeling well. He did eat 75% of his breakfast today and Magic cup in addition. Dr. Louis has recommended Avelox for discharge. Plan is to monitor overnight and discharged tomorrow. 09/03: Patient will be discharged back to ECF once authorization as complete and all arrangements are done. Due to ongoing problems with metabolic encephalopathy, Troy will be decreased to a half a tablet 3 times a day and baclofen will be discontinued. Patient will be discharged tomorrow to ECF in stable condition. Discharge diagnoses: 1. Recurrent Metabolic encephalopathy with sepsis sources include gram- negative pneumonia and UTI 2. Acute hypoxic respiratory failure with previous history of mechanical ventilation August 18 to 08/21/2017. 3. Elevated troponin, without evidence of acute coronary syndrome. 4. CKD stage III with recent acute failure secondary to ATN secondary to sepsis. 5. Arrhythmia history with prior Nonsustained ventricular tachycardia on 2015 H and was seen by cardiology echocardiogramJuly 2016 showed atrial fibrillation with small pericardial effusion noted ejection fraction 45-50% inferolateral hypokinesis with palpation of LA size over 40. Electrolyte management is optimized 6. History bilateral hydronephrosis mild 7. CAD post CABG. 8. Diabetes mellitus type II 9. Hypertensive cardiovascular disease. 10. Hyperlipidemia 11. Chronic A. fib. 12. Compensated chronic systolic and possible diastolic heart failure. 13. Recurrent depression 14. Seizure history 15. BPH 16. Severe GERD 17. Rhabdomyolysis on previous admission 18. Sacral decubitus stage I secondary to prolonged immobilization 19. Severe protein calorie malnutrition due to lack of oral intake. Appetite is improving. 20. Chronic low back pain. Discharge plan: Return to [facility] on Tuesday. Social work is following. Impression and plan of care have been directed as dictated by the signing physician. Carly Greene nurse practitioner acting as scribe for signing physician. Patient Condition at Discharge: Good Plan - Discharge Summary Discharge Rx Participant: No New Discharge Prescriptions: New Moxifloxacin HCl [Avelox] 400 mg PO DAILY #10 tablet amLODIPine [Norvasc] 5 mg PO BID #0 tab Formoterol Fumarate [Perforomist] 20 mcg INHALATION RT-BID nebu Ipratropium-Albuterol Nebulize [Duoneb 0.5 mg-3 mg/3 ml Soln] 3 ml INHALATION RT-QID PRN ampul.neb PRN Reason: Shortness Of Breath Or Wheezing Continue levETIRAcetam [Keppra] 750 mg PO BID Isosorbide Mononitrate ER [Imdur] 30 mg PO DAILY Atorvastatin [Lipitor] 40 mg PO HS Omeprazole [PriLOSEC] 20 mg PO BID Potassium Chloride ER [K-Dur 20] 20 meq PO HS Montelukast [Singulair] 10 mg PO DAILY Albuterol Inhaler [Ventolin Hfa Inhaler] 2 puff INHALATION RT-QID PRN PRN Reason: Shortness Of Breath Budesonide [Pulmicort] 0.5 mg INHALATION RT-BID Ipratropium-Albuterol Nebulize [Duoneb 0.5 mg-3 mg/3 ml Soln] 3 ml INHALATION RT-QID Nitroglycerin Sl Tabs [Nitrostat] 0.4 mg SUBLINGUAL Q5M PRN PRN Reason: Angina PARoxetine [Paxil] 10 mg PO DAILY tab Sodium Bicarbonate Tab 650 mg PO BID tab Tamsulosin [Flomax] 0.4 mg PO PC-SUPPER cap.er.24h Furosemide [Lasix] 40 mg PO DAILY #0 tab Insulin Aspart [NovoLOG (formulary)] See Protocol SQ ACHS hydrALAZINE HCL [Apresoline] 100 mg PO TID Metoprolol Tartrate [Lopressor] 12.5 mg PO BID Multivitamins, Thera [Multivitamin (formulary)] 1 tab PO HS Lisinopril [Zestril] 5 mg PO DAILY Insulin Detemir [Levemir] 7 unit SQ DAILY Prostat Sugar Free 30 ml PO BID Changed HYDROcodone/APAP 5-325MG [Troy 5-325] 0.5 tab PO TID PRN #11 tab PRN Reason: Pain Discontinued Baclofen 10 mg PO HS Fluconazole [Diflucan] 100 mg PO DAILY #5 tab Discharge Medication List Isosorbide Mononitrate ER [Imdur] 30 mg PO DAILY 04/26/14 [History] levETIRAcetam [Keppra] 750 mg PO BID 04/26/14 [History] Atorvastatin [Lipitor] 40 mg PO HS 02/20/15 [History] Omeprazole [PriLOSEC] 20 mg PO BID 04/18/16 [History] Potassium Chloride ER [K-Dur 20] 20 meq PO HS 05/05/16 [History] Montelukast [Singulair] 10 mg PO DAILY 06/16/16 [History] Albuterol Inhaler [Ventolin Hfa Inhaler] 2 puff INHALATION RT-QID PRN 08/11/17 [ History] Budesonide [Pulmicort] 0.5 mg INHALATION RT-BID 08/11/17 [History] Ipratropium-Albuterol Nebulize [Duoneb 0.5 mg-3 mg/3 ml Soln] 3 ml INHALATION RT -QID 08/11/17 [History] Nitroglycerin Sl Tabs [Nitrostat] 0.4 mg SUBLINGUAL Q5M PRN 08/11/17 [History] Furosemide [Lasix] 40 mg PO DAILY #0 tab 08/26/17 [Rx] PARoxetine [Paxil] 10 mg PO DAILY tab 08/26/17 [Rx] Sodium Bicarbonate Tab 650 mg PO BID tab 08/26/17 [Rx] Tamsulosin [Flomax] 0.4 mg PO PC-SUPPER cap.er.24h 08/26/17 [Rx] Insulin Aspart [NovoLOG (formulary)] See Protocol SQ ACHS 08/31/17 [History] Insulin Detemir [Levemir] 7 unit SQ DAILY 08/31/17 [History] Lisinopril [Zestril] 5 mg PO DAILY 08/31/17 [History] Metoprolol Tartrate [Lopressor] 12.5 mg PO BID 08/31/17 [History] Multivitamins, Thera [Multivitamin (formulary)] 1 tab PO HS 08/31/17 [History] Prostat Sugar Free 30 ml PO BID 08/31/17 [History] hydrALAZINE HCL [Apresoline] 100 mg PO TID 08/31/17 [History] Formoterol Fumarate [Perforomist] 20 mcg INHALATION RT-BID nebu 09/02/17 [Rx] HYDROcodone/APAP 5-325MG [Troy 5-325] 0.5 tab PO TID PRN #11 tab 09/02/17 [Rx] Ipratropium-Albuterol Nebulize [Duoneb 0.5 mg-3 mg/3 ml Soln] 3 ml INHALATION RT -QID PRN ampul.neb 09/02/17 [Rx] Moxifloxacin HCl [Avelox] 400 mg PO DAILY #10 tablet 09/02/17 [Rx] amLODIPine [Norvasc] 5 mg PO BID #0 tab 09/02/17 [Rx] Follow up Appointment(s)/Referral(s): Janet Blackman MD [Primary Care Provider] - 1 Week Discharge Disposition: TRANSFER TO SNF/ECF
--- NOTE | 2017-09-02 14:12 | P.PN ---
Subjective Progress Note Date: 09/02/17 This is a pleasant 71-year-old gentleman who follows with Dr. Lucas Gallo as his primary care physician. He has multiple chronic conditions including coronary artery disease with previous coronary artery bypass grafting, atrial fibrillation, diastolic congestive heart failure with a preserved left ventricular systolic function with ejection fraction 50-55%., chronic obstructive pulmonary disease and is a former smoker and is oxygen dependent, obstructive sleep apnea but does not wear CPAP, diabetes mellitus, alcoholism, hypertension, hyperlipidemia, osteoarthritis, seizure disorder, prostate disorder, previous suprapubic catheter. The patient is a poor historian and has a history of dementia. He is awake and alert but is disoriented to place and time. He is unsure why he was brought here to the hospital and he was unsure of where he was living prior. He was most recently discharged from here on 08/26/2017 to [facility]. He was brought in at that time after neighbors found him in bed probably for at least 2 days incontinent of stool not likely to have been eating. He had developed acute sepsis and renal failure with metabolic encephalopathy. He eventually developed acute respiratory failure requiring intubation and mechanical ventilation. He had Streptococcus pneumoniae septicemia. Cerebrospinal fluid revealed no growth. We followed the patient during the hospitalization as well. His chest x-ray had revealed bibasilar airspace disease left greater than right. ID had been on the case and the patient was initially on Zosyn and Diflucan that were eventually discontinued secondary to his 2 week length of stay. The patient was brought back to the emergency room yesterday from the [facility] as a noted altered mental status and he was having fevers. He also had a loose nonproductive cough. Chest x-ray again shows small to moderate size right greater than left pleural effusions with associated bibasilar atelectasis. He did have a T-max of 101.1. He is now on Zosyn and Levaquin. Influenza screen is negative. Urinalysis is positive for greater than 182 WBCs. Cultures pending. The patient is seen today in consultation on the selective care unit. He is currently resting in bed. He is quite cachectic and frail appearing. He is awake and oriented to person only. He is a poor historian. Difficult to get much information. He does have a loose nonproductive cough. Barium swallow revealed essentially normal results. No clear evidence of aspiration. He is maintaining good O2 saturations in the low 90s on 2 L/m per nasal cannula. Currently afebrile. Hemodynamically stable. WBC 9.1. Hemoglobin 10.2. Creatinine 2.03. This was 2.22 on discharge. On today's evaluation, the patient is awake and alert. He is extremely weak. He has a weak cough. Note that he has passed his barium swallow that was done yesterday. Nevertheless, there is still concern of an underlying pneumonia. The patient's chest x-ray from admission showed small to moderate-sized bilateral pleural effusion left more than right in addition to possible bibasilar infiltrates/atelectasis. The patient is currently on antibiotics. The patient is afebrile. Pulse ox is above 90% 3 L of oxygen nasal cannula. The antibiotic coverage including Zosyn and Levaquin. No other significant events overnight. His hemodynamic is stable. The white cell count is not elevated. Renal function improved and creatinine is down to 1.7. Objective - Vital Signs Vital signs: Vital Signs Temp 97.8 F 09/02/17 08:00 Pulse 80 09/02/17 13:26 Resp 17 09/02/17 12:00 BP 173/88 09/02/17 08:00 Pulse Ox 98 09/02/17 08:00 Intake & Output 09/01/17 09/02/17 09/02/17 18:59 06:59 18:59 Intake Total 340 150 Output Total 900 520 Balance -560 -370 Weight 63 kg 58.5 kg 58.5 kg Intake: IV 100 150 Piperacillin-Tazobactam 3 50 .375 gm In Dextrose/Water 1 50ml.bag @ 12.5 mls/hr IVPB Q8H [facility] Rx#: [id number] levETIRAcetam IV 750 mg 100 100 In Sodium Chloride 0.9% 100 ml @ 400 mls/hr IVPB Q12H [facility] Rx#:[id number] Oral 240 Output: Urine 900 520 Other: Voiding Method Indwelling Catheter Indwelling Catheter Indwelling Catheter # Bowel Movements 0 - Exam GENERAL EXAM: Frail, cachectic. Oriented times one. Alert, comfortable in no apparent distress. HEAD: Normocephalic. EYES: Normal reaction of pupils, equal size. NOSE: Clear with pink turbinates. THROAT: No erythema or exudates. NECK: No masses, no JVD. CHEST: No chest wall deformity. LUNGS: Equal air entry with basilar crackles right greater than left. Diminished. Scattered rhonchi. CVS: S1 and S2 normal with no audible murmur, irregular rhythm. ABDOMEN: No hepatosplenomegaly, normal bowel sounds, no guarding or rigidity. SPINE: Kyphoscoliosis SKIN: No rashes CENTRAL NERVOUS SYSTEM: No focal deficits, tone is normal in all 4 extremities. EXTREMITIES: There is no peripheral edema. No clubbing, no cyanosis. Peripheral pulses are intact. - Labs CBC & Chem 7: 09/02/17 05:54 09/02/17 05:54 Labs: Abnormal Lab Results - Last 24 Hours (Table) 09/01/17 09/01/17 09/02/17 Range/Units 16:33 20:19 05:54 RBC 3.67 L (4.30-5.90) m/uL Hgb 10.0 L (13.0-17.5) gm/dL Hct 31.1 L (39.0-53.0) % Lymphocytes # 0.8 L (1.0-4.8) k/uL Chloride (98-107) mmol/L BUN (9-20) mg/dL Creatinine (0.66-1.25) mg/dL Glucose (74-99) mg/dL POC Glucose (mg/dL) 174 H 191 H (75-99) mg/dL Calcium (8.4-10.2) mg/dL ALT (21-72) U/L Total Protein (6.3-8.2) g/dL Albumin (3.5-5.0) g/dL 09/02/17 09/02/17 09/02/17 Range/Units 05:54 06:21 11:42 RBC (4.30-5.90) m/uL Hgb (13.0-17.5) gm/dL Hct (39.0-53.0) % Lymphocytes # (1.0-4.8) k/uL Chloride 108 H (98-107) mmol/L BUN 32 H (9-20) mg/dL Creatinine 1.78 H (0.66-1.25) mg/dL Glucose 107 H (74-99) mg/dL POC Glucose (mg/dL) 109 H 159 H (75-99) mg/dL Calcium 7.8 L (8.4-10.2) mg/dL ALT 20 L (21-72) U/L Total Protein 5.6 L (6.3-8.2) g/dL Albumin 2.2 L (3.5-5.0) g/dL Microbiology - Last 24 Hours (Table) 08/31/17 10:30 Blood Culture - Preliminary Blood No Growth after 48 hours Assessment and Plan Assessment: #1 Altered mental status secondary to suspected urinary tract infection. A superimposed pneumonia is also likely although the chest x-ray findings most consistent with bilateral pleural effusion left more than right. Urine analysis was abnormal. Urine culture is still pending. Meanwhile the patient improved on a combination of Zosyn and Levaquin. The patient is afebrile. No significant leukocytosis. #2 Febrile illness secondary to above, improved for now #3 Acute on chronic hypoxic respiratory failure secondary to small to moderate right greater than left pleural effusions associated with bibasilar atelectasis/ infiltrate. Most likely secondary to acute exacerbation of diastolic congestive heart failure and suspected healthcare acquired pneumonia, although this is suspected to be less likely #4 Acute on chronic renal failure. The renal function is improving #5 Anemia of chronic disease. #6 Cachexia with protein calorie malnutrition. #7 History of oxygen dependent chronic obstructive pulmonary disease with chronic tobacco dependence. #8 History of obstructive sleep apnea and not utilizing CPAP in the outpatient setting. #9 Coronary artery disease with previous coronary artery bypass grafting. #10 Atrial fibrillation not on anticoagulants in the outpatient setting. #11 Recent hospitalization for metabolic encephalopathy, sepsis secondary to Streptococcus pneumoniae bacteremia. Required intubation and mechanical ventilatory support. #12 Diabetes mellitus. #13 History of alcoholism. #14 History of hypertension. #15 Hyperlipidemia. #16 Osteoarthritis. #17 Seizure disorder. #18 History of prostate disorder. #19 History of supra pubic catheter. #20 Poor overall functional performance based on the above-mentioned multiple comorbidities. Plan Monitor blood cultures. Monitor urine cultures. Continue same antibiotic coverage. Monitor fever pattern. Aspiration precautions. Chest x-ray findings were reviewed. A small bilateral pleural effusion more so on the left. Hospital-acquired pneumonia is felt to be less likely. The source is most likely a urine checked infection. We'll continue to follow. Long-term prognosis poor baseline above-mentioned comorbidities. He will need aggressive physical therapy and rehabilitation.
[2017-09-02] MEDS ORDERED: LEVOFLOXACIN 750MG-D5W PMX 750 MG in DEXTROSE/WATER 1 150ML.BAG IVPB SCH (16:00)
[2017-09-02 17:02] LABS: Glucose,Whole Blood 143 mg/dL (75-99)
[2017-09-02] MEDS: TAMSULOSIN 0.4 MG CAP.ER.24H PO SCH (17:22)
[2017-09-02] MEDS: MULTIVITAMINS, THERA 1 EACH TAB PO SCH (20:24)
[2017-09-02] MEDS: INSULIN DETEMIR 100 UNIT/ML 10 ML VIAL SQ SCH (20:25)
[2017-09-02 21:07] LABS: Glucose,Whole Blood 198 mg/dL (75-99)
[2017-09-02] MEDS: POTASSIUM CHLORIDE ER 20 MEQ TAB.ER PO SCH (21:26)
[2017-09-03] MEDS: HEPARIN SODIUM,PORCINE 5,000 UNIT/ML 1 ML VIAL SQ SCH ×4 (00:21→23:21)
[2017-09-03] MEDS: PIPERACILLIN-TAZOBACTAM 3.375 GM in DEXTROSE/WATER 1 50ML.BAG IVPB SCH ×3 (03:59→20:18)
[2017-09-03 07:11] LABS: Glucose,Whole Blood 80 mg/dL (75-99)
[2017-09-03] MEDS: IPRATROPIUM-ALBUTEROL 3 ML NEB INHALATION SCH ×4 (07:15→19:46)
[2017-09-03] MEDS: FORMOTEROL FUMARATE 20 MCG/2 ML NEBU INHALATION SCH ×2 (07:25→19:46)
[2017-09-03] MEDS: BUDESONIDE 1 MG/2 ML NEBU INHALATION SCH ×2 (07:25→19:46)
[2017-09-03 08:17] LABS: Basophils % (A) 0 %; Eosinophils # (A) 0.2 k/uL (0-0.7); Eosinophils % (A) 4 %; HCT 29.4 % (39.0-53.0); HGB 9.3 gm/dL (13.0-17.5); Lymphocytes # (A) 0.9 k/uL (1.0-4.8); Lymphocytes % (A) 16 %; MCH 27.5 pg (25.0-35.0); MCHC 31.8 g/dL (31.0-37.0); MCV 86.6 fL (80.0-100.0); Mean Platelet Volume 8.1; Monocytes # (A) 0.6 k/uL (0-1.0); Monocytes % (A) 11 %; Neutrophils # (A) 3.9 k/uL (1.3-7.7); Neutrophils % (A) 67 %; Platelet Count 211 k/uL (150-450); RDW 15.3 % (11.5-15.5); WBC 5.9 k/uL (3.8-10.6)
[2017-09-03] MEDS: INSULIN ASPART 100 UNIT/ML 1 ML 10 ML VIAL SQ SCH ×4 (08:40→21:50)
[2017-09-03] MEDS: hydrALAZINE HCL 50 MG TAB PO SCH ×3 (09:11→21:49)
[2017-09-03] MEDS: amLODIPine 5 MG TAB PO SCH ×2 (09:11→21:49)
[2017-09-03] MEDS: FUROSEMIDE 40 MG TAB PO SCH (09:11)
[2017-09-03] MEDS: SODIUM BICARBONATE TAB 650 MG TAB PO SCH ×2 (09:11→21:49)
[2017-09-03] MEDS: FLUCONAZOLE 100 MG TAB PO SCH (09:11)
[2017-09-03] MEDS: LISINOPRIL 5 MG TAB PO SCH (09:11)
[2017-09-03] MEDS: ISOSORBIDE MONONITRATE ER 30 MG TAB.ER.24H PO SCH (09:11)
[2017-09-03] MEDS: PARoxetine 10 MG TAB PO SCH (09:11)
[2017-09-03] MEDS: METOPROLOL TARTRATE 12.5 MG TAB PO SCH ×2 (09:11→22:23)
[2017-09-03] MEDS: PANTOPRAZOLE 40 MG TABLET PO SCH (09:12)
[2017-09-03 12:27] LABS: Glucose,Whole Blood 169 mg/dL (75-99)
--- NOTE | 2017-09-03 13:46 | PN ---
PROGRESS NOTE DATE OF SERVICE: 09/03/2017 REASON FOR FOLLOWUP: Recurrent aspiration pneumonia. INTERVAL HISTORY: The patient is afebrile. He is currently breathing comfortably. Denies having any chest pain. Occasional cough. No abdominal pain and no diarrhea. PHYSICAL EXAMINATION: Blood pressure 116/70 with a pulse of 65, temperature 98. He is 94% on 3 L nasal cannula. General description is an elderly male up in the bed in no distress. RESPIRATORY SYSTEM: Unlabored breathing with decreased breath sounds at bases. No wheeze. HEART: S1, S2. Regular rate and rhythm. ABDOMEN: Soft. No tenderness. LABS: White count 5.9. Blood culture negative. Urine with Vania albicans. DIAGNOSTIC IMPRESSION AND PLAN: Patient with recurrent aspiration pneumonia. His diet has been adjusted. Currently on Zosyn. Sputum could not be obtained. Blood cultures negative. He will finish therapy with oral Avelox for another week. Continue with supportive care. MMODL / IJN: [id number] /
--- NOTE | 2017-09-03 14:45 | P.PN ---
Subjective Progress Note Date: 09/03/17 This is a pleasant 71-year-old gentleman who follows with Dr. Lucas Gallo as his primary care physician. He has multiple chronic conditions including coronary artery disease with previous coronary artery bypass grafting, atrial fibrillation, diastolic congestive heart failure with a preserved left ventricular systolic function with ejection fraction 50-55%., chronic obstructive pulmonary disease and is a former smoker and is oxygen dependent, obstructive sleep apnea but does not wear CPAP, diabetes mellitus, alcoholism, hypertension, hyperlipidemia, osteoarthritis, seizure disorder, prostate disorder, previous suprapubic catheter. The patient is a poor historian and has a history of dementia. He is awake and alert but is disoriented to place and time. He is unsure why he was brought here to the hospital and he was unsure of where he was living prior. He was most recently discharged from here on 08/26/2017 to [facility]. He was brought in at that time after neighbors found him in bed probably for at least 2 days incontinent of stool not likely to have been eating. He had developed acute sepsis and renal failure with metabolic encephalopathy. He eventually developed acute respiratory failure requiring intubation and mechanical ventilation. He had Streptococcus pneumoniae septicemia. Cerebrospinal fluid revealed no growth. We followed the patient during the hospitalization as well. His chest x-ray had revealed bibasilar airspace disease left greater than right. ID had been on the case and the patient was initially on Zosyn and Diflucan that were eventually discontinued secondary to his 2 week length of stay. The patient was brought back to the emergency room yesterday from the [facility] as a noted altered mental status and he was having fevers. He also had a loose nonproductive cough. Chest x-ray again shows small to moderate size right greater than left pleural effusions with associated bibasilar atelectasis. He did have a T-max of 101.1. He is now on Zosyn and Levaquin. Influenza screen is negative. Urinalysis is positive for greater than 182 WBCs. Cultures pending. The patient is seen today in consultation on the selective care unit. He is currently resting in bed. He is quite cachectic and frail appearing. He is awake and oriented to person only. He is a poor historian. Difficult to get much information. He does have a loose nonproductive cough. Barium swallow revealed essentially normal results. No clear evidence of aspiration. He is maintaining good O2 saturations in the low 90s on 2 L/m per nasal cannula. Currently afebrile. Hemodynamically stable. WBC 9.1. Hemoglobin 10.2. Creatinine 2.03. This was 2.22 on discharge. On today's evaluation, the patient is awake and alert. He is extremely weak. He has a weak cough. Note that he has passed his barium swallow that was done yesterday. Nevertheless, there is still concern of an underlying pneumonia. The patient's chest x-ray from admission showed small to moderate-sized bilateral pleural effusion left more than right in addition to possible bibasilar infiltrates/atelectasis. The patient is currently on antibiotics. The patient is afebrile. Pulse ox is above 90% 3 L of oxygen nasal cannula. The antibiotic coverage including Zosyn and Levaquin. No other significant events overnight. His hemodynamic is stable. The white cell count is not elevated. Renal function improved and creatinine is down to 1.7. On today's evaluation of 09/03/2017, the patient is resting comfortably in bed. Still weak. Further urine cultures have yielded Vania albicans. The patient a permanent Grullon catheter in place. The catheter itself needs to be replaced. Afebrile. No respiratory difficulties. Right cell count is at 5.9 Objective - Vital Signs Vital signs: Vital Signs Temp 98.0 F 09/03/17 05:50 Pulse 76 09/03/17 11:35 Resp 20 09/03/17 05:50 BP 168/70 09/03/17 05:50 Pulse Ox 94 L 09/03/17 05:50 Intake & Output 09/02/17 09/03/17 09/03/17 18:59 06:59 18:59 Intake Total 120 50 Output Total 450 750 Balance -330 -700 Weight 58.5 kg 58.5 kg Intake: IV 50 Piperacillin-Tazobactam 3 50 .375 gm In Dextrose/Water 1 50ml.bag @ 12.5 mls/hr IVPB Q8H [facility] Rx#: [id number] Oral 120 Output: Urine 450 750 Other: Voiding Method Indwelling Catheter Indwelling Catheter # Bowel Movements 0 - Exam GENERAL EXAM: Frail, cachectic. Oriented times one. Alert, comfortable in no apparent distress. HEAD: Normocephalic. EYES: Normal reaction of pupils, equal size. NOSE: Clear with pink turbinates. THROAT: No erythema or exudates. NECK: No masses, no JVD. CHEST: No chest wall deformity. LUNGS: Equal air entry with basilar crackles right greater than left. Diminished. Scattered rhonchi. CVS: S1 and S2 normal with no audible murmur, irregular rhythm. ABDOMEN: No hepatosplenomegaly, normal bowel sounds, no guarding or rigidity. SPINE: Kyphoscoliosis SKIN: No rashes CENTRAL NERVOUS SYSTEM: No focal deficits, tone is normal in all 4 extremities. EXTREMITIES: There is no peripheral edema. No clubbing, no cyanosis. Peripheral pulses are intact. - Labs CBC & Chem 7: 09/03/17 07:29 09/02/17 05:54 Labs: Abnormal Lab Results - Last 24 Hours (Table) 09/02/17 09/02/17 09/03/17 Range/Units 17:00 21:06 07:29 RBC 3.40 L (4.30-5.90) m/uL Hgb 9.3 L (13.0-17.5) gm/dL Hct 29.4 L (39.0-53.0) % Lymphocytes # 0.9 L (1.0-4.8) k/uL POC Glucose (mg/dL) 143 H 198 H (75-99) mg/dL 09/03/17 Range/Units 12:25 RBC (4.30-5.90) m/uL Hgb (13.0-17.5) gm/dL Hct (39.0-53.0) % Lymphocytes # (1.0-4.8) k/uL POC Glucose (mg/dL) 169 H (75-99) mg/dL Microbiology - Last 24 Hours (Table) 08/31/17 10:30 Blood Culture - Preliminary Blood No Growth after 72 hours 08/31/17 10:30 Urine Culture - Final Urine,Voided Vania albicans Assessment and Plan Plan: #1 Altered mental status secondary to suspected urinary tract infection. The patient has Vania in the urine and the patient was started on Diflucan #2 Febrile illness secondary to above, improved for now #3 Acute on chronic hypoxic respiratory failure secondary to small to moderate right greater than left pleural effusions associated with bibasilar atelectasis/ infiltrate. Most likely secondary to acute exacerbation of diastolic congestive heart failure and suspected healthcare acquired pneumonia, although this is suspected to be less likely #4 Acute on chronic renal failure. The renal function is improving #5 Anemia of chronic disease. #6 Cachexia with protein calorie malnutrition. #7 History of oxygen dependent chronic obstructive pulmonary disease with chronic tobacco dependence. #8 History of obstructive sleep apnea and not utilizing CPAP in the outpatient setting. #9 Coronary artery disease with previous coronary artery bypass grafting. #10 Atrial fibrillation not on anticoagulants in the outpatient setting. #11 Recent hospitalization for metabolic encephalopathy, sepsis secondary to Streptococcus pneumoniae bacteremia. Required intubation and mechanical ventilatory support. #12 Diabetes mellitus. #13 History of alcoholism. #14 History of hypertension. #15 Hyperlipidemia. #16 Osteoarthritis. #17 Seizure disorder. #18 History of prostate disorder. #19 History of supra pubic catheter. #20 Poor overall functional performance based on the above-mentioned multiple comorbidities. Plan Aspiration precaution. Continue the course of Diflucan. Replace the Grullon catheter. Incentive spirometer. Pulmonary toileting. Poorly services will sign off the case.
--- NOTE | 2017-09-03 17:08 | P.PN ---
Subjective Progress Note Date: 09/03/17 This is a 71-year-old male one of Dr. Lucas Gallo's patient with past medical history of hypertension, hyperlipidemia, diabetes, COPD, ,CHF , alcoholism and worsening heart failure who had open heart surgery with the CABG 2015 ended up having multiple complications and the multiple rehospitalization for worsening shortness of breath, A. fib and other complication. He was admitted from facility 08/11/2017 until when he stayed in bed without anybody checking on him for 2 days, and was found by a neighbor prior to his admission secondary to mental status changes, aspiration pneumonia, required ventilatory support August 19 to August 21, seen by Dr. Presley, Dr. Heriberto Mcbride. LP do that had ruled out encephalitis and CVA, he has bilateral pneumonia at that time and CHF with effusions, CT of the brain showed possibility of evolving subacute infarct internal capsule Patient was transferred from [facility] secondary to mental status changes obtundation, and was found to have a fever subsequently sent to the emergency room. Unknown whether the patient was feeding with assistance or supervised feedings, no family member was available at that time for evaluation , funez was most likely placed from the emergency room patient was lethargic when seen, he can follow commands, narcotics are held back, patient remains to be hypertensive highest blood pressure 201/93, T-max of 100.14 L pulse ox 94% to 99% labs shows double basic count 10.4, hemoglobin 10.9, creatinine 1.8 from a previous of 2.2 troponin of 0.063 blood sugar of 114 urinalysis shows urine WBC 182. Chest x-ray shows suspicious for posterior by basilar segment in a focal pneumonia aspiration pneumonia considered mild interstitial prominence chronic diffuse demineralization suspected pulmonary arterial hypertension Previous Imaging studies 08/12/17: Echocardiogram reveals EF of 50-55% with moderate concentric left ventricular hypertrophy, LA severely dilated at greater than 40, are appears enlarged, mild mitral calcification, mild mitral regurgitation, mild tricuspid regurgitation. Patient has been seen and evaluated by cardiology. Beta kojo was not started due to history of symptomatic bradycardia. 09/01: Patient has been afebrile since admission. Pulse ox is 90-93% on 2-3 L nasal cannula. Pulse is running in the 50s. Blood pressure is slightly on the high side. The Lantus 40 creatinine 2.03. Urine culture is in progress. Speech therapy is following and planning for modified barium swallow. Consults with Dr. Louis and Dr. Nicholas are pending. There is concern that mental status changes are related to possible uncontrolled seizures. Patient has been maintained on Keppra. Reviewed previous cultures and Diflucan has been added. Sputum cultures been ordered. Repeat chest x-ray shows persistent small to moderate size right greater than left pleural effusions with associated bibasilar atelectasis and/or infiltrate. Contrast-filled distal esophagus after her procedure raises concern for significant gastroesophageal reflux. Consult with Dr. Ballard added for possible aspiration pneumonia. Patient is more alert from admission. He denies any abdominal pain, cough, headache. 09/02: Patient has been seen by Dr. Louis with recommendations to continue Zosyn and aspiration precautions. Patient is followed by Dr. Ballard for bilateral pneumonia with small right sided pleural effusion and recommend continuing Levaquin and Zosyn. EEG is abnormal due to presence of generalized slowing of the background rhythm mostly in the theta range. This is consistent with mild encephalopathy. No epileptiform discharges were seen. Patient has been seen by Dr. Nicholas for metabolic encephalopathy due to pneumonia and UTI and renal insufficiency. Continue Keppra at home dose. No further neuro workup is necessary and Dr. Nicholas is following on an as-needed basis. Pulse ox is 99% on 3 L nasal cannula. Patient has been afebrile. White count is normal. BUN is 32 and creatinine 1.78. Speech therapy performed modified barium swallow that was within functional level for patient's advanced age. Diet recommendation is mechanical soft with thin liquids. He is alert and oriented 3. engine monitor is atrial fibrillation rate controlled. Patient denies any cough. He states he is feeling well. He did eat 75% of his breakfast today and Magic cup in addition. Dr. Louis has recommended Avelox for discharge. Plan is to monitor overnight and discharge tomorrow. 09/03. Patient continues to be requiring 3 L of nasal cannula. He is slow to respond but is answering appropriately. Alert and oriented X1. Good urine output. Patient is asymptomatic. Possible discharge Tuesday. Objective - Vital Signs Vital signs: Vital Signs Temp 97.2 F L 09/03/17 15:00 Pulse 61 09/03/17 16:12 Resp 16 09/03/17 16:12 BP 133/67 09/03/17 15:00 Pulse Ox 97 09/03/17 16:00 Intake & Output 09/02/17 09/03/17 09/03/17 18:59 06:59 18:59 Intake Total 120 50 925 Output Total 450 750 550 Balance -330 -700 375 Weight 58.5 kg 58.5 kg Intake: IV 50 Piperacillin-Tazobactam 3 50 .375 gm In Dextrose/Water 1 50ml.bag @ 12.5 mls/hr IVPB [facility]H [facility] Rx#: [id number] Oral 120 925 Output: Urine 450 750 550 Other: Voiding Method Indwelling Catheter Indwelling Catheter Indwelling Catheter # Bowel Movements 0 - Exam General appearance: average body habitus, no acute distress - EENT Eyes: EOMI, PERRLA, dentition normal - Neck Neck: normal ROM - Respiratory Respiratory: bilateral: CTA, diminished, negative: dullness, rales, rhonchi - Cardiovascular Rhythm: regular Heart sounds: normal: S1, S2 Abnormal Heart Sounds: systolic murmur, no diastolic murmur, no rub, no S3 Gallop, no S4 Gallop, no click, no other - Gastrointestinal General gastrointestinal: normal bowel sounds, soft - Integumentary Integumentary: decreased turgor, normal - Neurologic Neurologic: CNII-XII intact - Musculoskeletal Musculoskeletal: gait normal, strength equal bilaterally - Psychiatric Psychiatric: A&O x's 1, intact judgment & insight - Labs CBC & Chem 7: 09/03/17 07:29 09/02/17 05:54 Labs: Abnormal Lab Results - Last 24 Hours (Table) 09/02/17 09/02/17 09/03/17 Range/Units 17:00 21:06 07:29 RBC 3.40 L (4.30-5.90) m/uL Hgb 9.3 L (13.0-17.5) gm/dL Hct 29.4 L (39.0-53.0) % Lymphocytes # 0.9 L (1.0-4.8) k/uL POC Glucose (mg/dL) 143 H 198 H (75-99) mg/dL 09/03/17 Range/Units 12:25 RBC (4.30-5.90) m/uL Hgb (13.0-17.5) gm/dL Hct (39.0-53.0) % Lymphocytes # (1.0-4.8) k/uL POC Glucose (mg/dL) 169 H (75-99) mg/dL Microbiology - Last 24 Hours (Table) 08/31/17 10:30 Blood Culture - Preliminary Blood No Growth after 72 hours 08/31/17 10:30 Urine Culture - Final Urine,Voided Vania albicans Assessment and Plan Plan: 1. Recurrent Metabolic encephalopathy with sepsis sources include gram- negative pneumonia and UTI possible uncontrolled seizures to be evaluated. [place] discontinued. Consult Dr. Nicholas and Dr. Louis., EEG as above, maintenance Keppra, Levaquin and Zosyn IV, pending cultures for blood in urine. Possibly narcotic related, hold off narcotics at this time. Modified barium swallow as above finding no abnormalities. Repeat chest x-ray as above. Diflucan added. 2. Acute hypoxic respiratory failure with previous history of mechanical ventilation August 18 to 08/21/2017. Continue with aggressive pulmonary toileting, monitor the patient very closely. O2 by cannula. Consult with Dr. Ballard for possible aspiration pneumonia. 3. Elevated troponin, secondary to sepsis without evidence of acute coronary syndrome. History of elevation of troponin also during his last visit, the chronic in nature 4. CKD stage III with recent acute failure secondary to ATN secondary to sepsis. Monitor for renal decompensation 5. Arrhythmia history with prior Nonsustained ventricular tachycardia on 2015 H and was seen by cardiology echocardiogramJuly 2016 showed atrial fibrillation with small pericardial effusion noted ejection fraction 45-50% inferolateral hypokinesis with palpation of LA size over 40. Electrolyte management is optimized 6. History bilateral hydronephrosis mild, improved from last ultrasound history Phimosis with urinary retention resolved monitor for urinary retention continue tamsulosin 7. CAD post CABG. continue aspirin 81 mg orally once every day, 8. Diabetes mellitus type II: levmir 7units at bedtime along with NovoLog sliding scale, 9. Hypertensive cardiovascular disease. ,continue hydralazine 100 mg 3 times daily, Lopressor 12.5 mg twice daily, hydralazine. 10. Hyperlipidemia: Currently off statin. 11. Chronic A. fib. Patient is no longer on Coumadin. This may be related to risk of falls. 12. Compensated chronic systolic and possible diastolic heart failure. Lasix ordered on a daily will need to be addressed on daily basis 12. Recurrent depression: Has been on Paxil 10 mg daily.Xanax at bedtime-- discontinued 13. Seizure history: Has been on Keppra 750 g twice a day with no new seizure activity. Keppra changed to IV. 14. BPH: Resume Flomax. Funez catheter 15. Severe GERD: Will add Protonix 40 mg daily 16. Rhabdomyolysis, hold Lipitor 17. Sacral decubitus stage I secondary to prolonged immobilization , overlay mattress and frequent turning 19. Severe protein calorie malnutrition due to lack of oral intake. Dietitian consult requested. 20. Chronic low back pain. [place] on hold due to mental status changes. Discharge plan: Return to [facility] on tuesday. Social work is following.
[2017-09-03 17:13] LABS: Glucose,Whole Blood 145 mg/dL (75-99)
--- NOTE | 2017-09-03 17:46 | CT ---
EXAMINATION TYPE: CT chest wo con DATE OF EXAM: 09/03/2017 COMPARISON: 12/13/2014 HISTORY: Hypoxia and cough. CT DLP: 443.1 mGycm. Automated Exposure Control for Dose Reduction was Utilized. TECHNIQUE: CT scan of the thorax is performed without IV contrast. FINDINGS: The heart is enlarged. There is extensive pneumonic airspace infiltrate in the lower lung dominguez and worse on the right side. There are small pleural effusions. There is atherosclerotic vascular calcifi cation. There are enlarged mediastinal and bronchial lymph nodes that measure more than 2 cm. There i s spurring in the thoracic spine. I see no focal bone destruction. IMPRESSION: Extensive lower lobe pulmonary infiltrates are worse than old exam. Cardiomegaly. Mediast inal and bronchial adenopathy is worse than old exam. Follow-up is recommended. Exam limited by lack of contrast. 4.4 cm aneurysm of ascending aorta appears increased compared to old CT scan.
[2017-09-03] MEDS: TAMSULOSIN 0.4 MG CAP.ER.24H PO SCH (18:01)
[2017-09-03 20:44] LABS: Glucose,Whole Blood 169 mg/dL (75-99)
[2017-09-03] MEDS: POTASSIUM CHLORIDE ER 20 MEQ TAB.ER PO SCH (21:49)
[2017-09-03] MEDS: MULTIVITAMINS, THERA 1 EACH TAB PO SCH (21:49)
[2017-09-03] MEDS: INSULIN DETEMIR 100 UNIT/ML 10 ML VIAL SQ SCH (21:50)
[2017-09-04] MEDS: IPRATROPIUM-ALBUTEROL 3 ML NEB INHALATION PRN (01:27)
[2017-09-04] MEDS: PIPERACILLIN-TAZOBACTAM 3.375 GM in DEXTROSE/WATER 1 50ML.BAG IVPB SCH ×3 (04:48→20:36)
[2017-09-04 07:35] LABS: Glucose,Whole Blood 104 mg/dL (75-99)
[2017-09-04] MEDS: FORMOTEROL FUMARATE 20 MCG/2 ML NEBU INHALATION SCH ×2 (08:25→20:08)
[2017-09-04] MEDS: BUDESONIDE 1 MG/2 ML NEBU INHALATION SCH ×2 (08:25→20:08)
[2017-09-04] MEDS: IPRATROPIUM-ALBUTEROL 3 ML NEB INHALATION SCH ×4 (08:25→20:08)
[2017-09-04] MEDS: INSULIN ASPART 100 UNIT/ML 1 ML 10 ML VIAL SQ SCH ×4 (09:20→20:44)
[2017-09-04] MEDS: LISINOPRIL 5 MG TAB PO SCH (09:23)
[2017-09-04] MEDS: hydrALAZINE HCL 50 MG TAB PO SCH ×3 (09:23→20:38)
[2017-09-04] MEDS: ISOSORBIDE MONONITRATE ER 30 MG TAB.ER.24H PO SCH (09:23)
[2017-09-04] MEDS: METOPROLOL TARTRATE 12.5 MG TAB PO SCH ×2 (09:23→20:38)
[2017-09-04] MEDS: FUROSEMIDE 40 MG TAB PO SCH (09:24)
[2017-09-04] MEDS: PANTOPRAZOLE 40 MG TABLET PO SCH (09:24)
[2017-09-04] MEDS: amLODIPine 5 MG TAB PO SCH ×2 (09:24→20:39)
[2017-09-04] MEDS: PARoxetine 10 MG TAB PO SCH (09:24)
[2017-09-04] MEDS: FLUCONAZOLE 100 MG TAB PO SCH (09:24)
[2017-09-04] MEDS: HEPARIN SODIUM,PORCINE 5,000 UNIT/ML 1 ML VIAL SQ SCH ×3 (09:24→23:54)
[2017-09-04] MEDS: SODIUM BICARBONATE TAB 650 MG TAB PO SCH ×2 (09:24→20:38)
[2017-09-04 12:22] LABS: Glucose,Whole Blood 87 mg/dL (75-99)
--- NOTE | 2017-09-04 15:58 | P.PN ---
Subjective Progress Note Date: 09/04/17 This is a 71-year-old male one of Dr. Lucas Gallo's patient with past medical history of hypertension, hyperlipidemia, diabetes, COPD, ,CHF , alcoholism and worsening heart failure who had open heart surgery with the CABG 2015 ended up having multiple complications and the multiple rehospitalization for worsening shortness of breath, A. fib and other complication. He was admitted from facility 08/11/2017 until when he stayed in bed without anybody checking on him for 2 days, and was found by a neighbor prior to his admission secondary to mental status changes, aspiration pneumonia, required ventilatory support August 19 to August 21, seen by Dr. Presley, Dr. Heriberto Mcbride. LP do that had ruled out encephalitis and CVA, he has bilateral pneumonia at that time and CHF with effusions, CT of the brain showed possibility of evolving subacute infarct internal capsule Patient was transferred from [facility] secondary to mental status changes obtundation, and was found to have a fever subsequently sent to the emergency room. Unknown whether the patient was feeding with assistance or supervised feedings, no family member was available at that time for evaluation , funez was most likely placed from the emergency room patient was lethargic when seen, he can follow commands, narcotics are held back, patient remains to be hypertensive highest blood pressure 201/93, T-max of 100.14 L pulse ox 94% to 99% labs shows double basic count 10.4, hemoglobin 10.9, creatinine 1.8 from a previous of 2.2 troponin of 0.063 blood sugar of 114 urinalysis shows urine WBC 182. Chest x-ray shows suspicious for posterior by basilar segment in a focal pneumonia aspiration pneumonia considered mild interstitial prominence chronic diffuse demineralization suspected pulmonary arterial hypertension Previous Imaging studies 08/12/17: Echocardiogram reveals EF of 50-55% with moderate concentric left ventricular hypertrophy, LA severely dilated at greater than 40, are appears enlarged, mild mitral calcification, mild mitral regurgitation, mild tricuspid regurgitation. Patient has been seen and evaluated by cardiology. Beta kojo was not started due to history of symptomatic bradycardia. 09/01: Patient has been afebrile since admission. Pulse ox is 90-93% on 2-3 L nasal cannula. Pulse is running in the 50s. Blood pressure is slightly on the high side. The Lantus 40 creatinine 2.03. Urine culture is in progress. Speech therapy is following and planning for modified barium swallow. Consults with Dr. Louis and Dr. Nicholas are pending. There is concern that mental status changes are related to possible uncontrolled seizures. Patient has been maintained on Keppra. Reviewed previous cultures and Diflucan has been added. Sputum cultures been ordered. Repeat chest x-ray shows persistent small to moderate size right greater than left pleural effusions with associated bibasilar atelectasis and/or infiltrate. Contrast-filled distal esophagus after her procedure raises concern for significant gastroesophageal reflux. Consult with Dr. Ballard added for possible aspiration pneumonia. Patient is more alert from admission. He denies any abdominal pain, cough, headache. 09/02: Patient has been seen by Dr. Louis with recommendations to continue Zosyn and aspiration precautions. Patient is followed by Dr. Ballard for bilateral pneumonia with small right sided pleural effusion and recommend continuing Levaquin and Zosyn. EEG is abnormal due to presence of generalized slowing of the background rhythm mostly in the theta range. This is consistent with mild encephalopathy. No epileptiform discharges were seen. Patient has been seen by Dr. Nicholas for metabolic encephalopathy due to pneumonia and UTI and renal insufficiency. Continue Keppra at home dose. No further neuro workup is necessary and Dr. Nicholas is following on an as-needed basis. Pulse ox is 99% on 3 L nasal cannula. Patient has been afebrile. White count is normal. BUN is 32 and creatinine 1.78. Speech therapy performed modified barium swallow that was within functional level for patient's advanced age. Diet recommendation is mechanical soft with thin liquids. He is alert and oriented 3. 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 Patient denies any cough. He states he is feeling well. He did eat 75% of his breakfast today and Magic cup in addition. Dr. Louis has recommended Avelox for discharge. Plan is to monitor overnight and discharge tomorrow. 09/03. Patient continues to be requiring 3 L of nasal cannula. He is slow to respond but is answering appropriately. Alert and oriented X1. Good urine output. Patient is asymptomatic. Possible discharge Tuesday. 09/04 Patient feels congested. Oxygen requirements has decreased saturating at 92 % on room air. Flutter valve initiated. CT chest suggests extensive airspace disease at lower lung bases worse on the right with pleural effusions and enlarged LAD. Objective - Vital Signs Vital signs: Vital Signs Temp 98.3 F 09/04/17 15:00 Pulse 69 09/04/17 15:00 Resp 16 09/04/17 15:00 BP 163/79 09/04/17 15:00 Pulse Ox 92 L 09/04/17 15:00 Intake & Output 09/03/17 09/04/17 09/04/17 18:59 06:59 18:59 Intake Total 925 100 50 Output Total 550 1050 Balance 375 -950 50 Weight 63.5 kg Intake: IV 100 50 Piperacillin-Tazobactam 3 100 50 .375 gm In Dextrose/Water 1 50ml.bag @ 12.5 mls/hr IVPB Q8H [facility] ROSA Rx#: [id number] Oral 925 Output: Urine 550 1050 Other: Voiding Method Indwelling Catheter Indwelling Catheter Indwelling Catheter # Bowel Movements 2 - Exam General appearance: average body habitus, no acute distress - EENT Eyes: EOMI, PERRLA, dentition normal - Neck Neck: normal ROM - Respiratory Respiratory: bilateral: CTA, diminished, negative: dullness, rales, rhonchi - Cardiovascular Rhythm: regular Heart sounds: normal: S1, S2 Abnormal Heart Sounds: systolic murmur, no diastolic murmur, no rub, no S3 Gallop, no S4 Gallop, no click, no other - Gastrointestinal General gastrointestinal: normal bowel sounds, soft - Integumentary Integumentary: decreased turgor, normal - Neurologic Neurologic: CNII-XII intact - Musculoskeletal Musculoskeletal: gait normal, strength equal bilaterally - Psychiatric Psychiatric: A&O x's 1, intact judgment & insight, appropriate responsive to questions, intermittent confusion - Labs CBC & Chem 7: 09/03/17 07:29 09/02/17 05:54 Labs: Abnormal Lab Results - Last 24 Hours (Table) 09/03/17 09/03/17 09/04/17 Range/Units 17:10 20:42 07:32 POC Glucose (mg/dL) 145 H 169 H 104 H (75-99) mg/dL Microbiology - Last 24 Hours (Table) 08/31/17 10:30 Blood Culture - Preliminary Blood No Growth after 96 hours Assessment and Plan Plan: 1. Recurrent Metabolic encephalopathy with sepsis sources include gram- negative pneumonia and UTI possible uncontrolled seizures to be evaluated. [place] discontinued. Consult Dr. Nicholas and Dr. Louis., EEG as above, maintenance Keppra, Levaquin and Zosyn IV, pending cultures for blood in urine. Possibly narcotic related, hold off narcotics at this time. Modified barium swallow as above finding no abnormalities. Repeat chest x-ray as above. Diflucan added. 2. Acute hypoxic respiratory failure with previous history of mechanical ventilation August 18 to 08/21/2017. Continue with aggressive pulmonary toileting, monitor the patient very closely. O2 by cannula. Consult with Dr. Ballard for possible aspiration pneumonia. 3. Elevated troponin, secondary to sepsis without evidence of acute coronary syndrome. History of elevation of troponin also during his last visit, the chronic in nature 4. CKD stage III with recent acute failure secondary to ATN secondary to sepsis. Monitor for renal decompensation 5. Arrhythmia history with prior Nonsustained ventricular tachycardia on 2015 H and was seen by cardiology echocardiogramJuly 2016 showed atrial fibrillation with small pericardial effusion noted ejection fraction 45-50% inferolateral hypokinesis with palpation of LA size over 40. Electrolyte management is optimized 6. History bilateral hydronephrosis mild, improved from last ultrasound history Phimosis with urinary retention resolved monitor for urinary retention continue tamsulosin 7. CAD post CABG. continue aspirin 81 mg orally once every day, 8. Diabetes mellitus type II: levmir 7units at bedtime along with NovoLog sliding scale, 9. Hypertensive cardiovascular disease. ,continue hydralazine 100 mg 3 times daily, Lopressor 12.5 mg twice daily, hydralazine. 10. Hyperlipidemia: Currently off statin. 11. Chronic A. fib. Patient is no longer on Coumadin. This may be related to risk of falls. 12. Compensated chronic systolic and possible diastolic heart failure. Lasix ordered on a daily will need to be addressed on daily basis 12. Recurrent depression: Has been on Paxil 10 mg daily.Xanax at bedtime-- discontinued 13. Seizure history: Has been on Keppra 750 g twice a day with no new seizure activity. Keppra changed to IV. 14. BPH: Resume Flomax. Funez catheter 15. Severe GERD: Will add Protonix 40 mg daily 16. Rhabdomyolysis, hold Lipitor 17. Sacral decubitus stage I secondary to prolonged immobilization , overlay mattress and frequent turning 19. Severe protein calorie malnutrition due to lack of oral intake. Dietitian consult requested. 20. Chronic low back pain. [place] on hold due to mental status changes. Discharge plan: Return to [facility] on tuesday. Social work is following.
[2017-09-04] MEDS: TAMSULOSIN 0.4 MG CAP.ER.24H PO SCH (17:46)
[2017-09-04 17:52] LABS: Glucose,Whole Blood 149 mg/dL (75-99)
[2017-09-04] MEDS: POTASSIUM CHLORIDE ER 20 MEQ TAB.ER PO SCH (20:39)
[2017-09-04] MEDS: MULTIVITAMINS, THERA 1 EACH TAB PO SCH (20:39)
[2017-09-04 20:49] LABS: Glucose,Whole Blood 216 mg/dL (75-99)
[2017-09-04] MEDS: INSULIN DETEMIR 100 UNIT/ML 10 ML VIAL SQ SCH (20:49)
--- NOTE | 2017-09-04 22:49 | PN ---
PROGRESS NOTE DATE OF SERVICE: 09/04/2017. REASON FOR FOLLOW UP: Recurrent aspiration pneumonia. INTERVAL HISTORY: The patient is afebrile. He is currently breathing comfortably. Patient denies having any chest pain, shortness of breath or cough. No abdominal pain or any diarrhea. EXAMINATION: Blood pressure is 153/79 with a pulse of 69, temperature 98.3, he is 92% on 2 L nasal cannula. General description is an elderly male up in the bed in no distress. Respiratory system: Unlabored breathing with decreased breath sounds. No wheeze. Heart S1, S2. Regular rate and rhythm. Abdomen: Soft, no tenderness. LABS: Hemoglobin 9.4, white count 5.9, BUN of 32, creatinine 1.78. CT of the chest completed today did show extensive lower lobe pulmonary infiltrate. DIAGNOSTIC IMPRESSION/PLAN: Patient admitted to the hospital with recurrent pneumonia, likely for aspiration etiology. He responded to the Zosyn. Blood cultures negative. He was not able to provide any sputum. Will be able to finish therapy with oral Avelox for another 7 to 10 days with close outpatient followup. Continue supportive care. MMODL / IJN: [id number] /
[2017-09-05] MEDS: PIPERACILLIN-TAZOBACTAM 3.375 GM in DEXTROSE/WATER 1 50ML.BAG IVPB SCH ×3 (04:49→21:54)
[2017-09-05 06:48] VITALS: RESP 20
[2017-09-05] MEDS: hydrALAZINE HCL 50 MG TAB PO SCH ×3 (06:51→22:56)
[2017-09-05 07:19] LABS: Glucose,Whole Blood 35 mg/dL (75-99)
[2017-09-05 07:36] LABS: Glucose,Whole Blood 47 mg/dL (75-99)
[2017-09-05] MEDS: INSULIN ASPART 100 UNIT/ML 1 ML 10 ML VIAL SQ SCH ×4 (07:59→22:58)
[2017-09-05 08:08] LABS: Glucose,Whole Blood 86 mg/dL (75-99)
[2017-09-05 08:08] LABS: Glucose,Whole Blood 61 mg/dL (75-99)
[2017-09-05] MEDS: BUDESONIDE 1 MG/2 ML NEBU INHALATION SCH ×2 (08:19→19:21)
[2017-09-05] MEDS: FORMOTEROL FUMARATE 20 MCG/2 ML NEBU INHALATION SCH ×2 (08:19→19:21)
[2017-09-05] MEDS: IPRATROPIUM-ALBUTEROL 3 ML NEB INHALATION SCH ×4 (08:19→19:22)
[2017-09-05] MEDS: HEPARIN SODIUM,PORCINE 5,000 UNIT/ML 1 ML VIAL SQ SCH ×3 (09:16→22:58)
[2017-09-05] MEDS: FLUCONAZOLE 100 MG TAB PO SCH (09:17)
[2017-09-05] MEDS: PANTOPRAZOLE 40 MG TABLET PO SCH (09:17)
[2017-09-05] MEDS: METOPROLOL TARTRATE 12.5 MG TAB PO SCH ×2 (09:17→22:56)
[2017-09-05] MEDS: LISINOPRIL 5 MG TAB PO SCH (09:17)
[2017-09-05] MEDS: ISOSORBIDE MONONITRATE ER 30 MG TAB.ER.24H PO SCH (09:17)
[2017-09-05] MEDS: SODIUM BICARBONATE TAB 650 MG TAB PO SCH ×2 (09:17→22:57)
[2017-09-05] MEDS: amLODIPine 5 MG TAB PO SCH ×2 (09:17→22:57)
[2017-09-05] MEDS: PARoxetine 10 MG TAB PO SCH (09:17)
[2017-09-05] MEDS: FUROSEMIDE 40 MG TAB PO SCH (09:17)
[2017-09-05 12:17] LABS: Glucose,Whole Blood 115 mg/dL (75-99)
--- NOTE | 2017-09-05 14:08 | P.DS ---
Providers Date of admission: 08/31/17 13:12 Expected date of discharge: 09/05/17 Attending physician: Ericka Thompson Consults: 08/31/17 18:12 Consult Physician Routine Consulting Provider: Reggie Louis Consult Reason/Comments: recurrent aspiration pneumonia Do you want consulting provider notified?: Yes 08/31/17 18:13 Consult Physician Routine Consulting Provider: Shanna Nicholas Consult Reason/Comments: metabolic enceph, obtundation Do you want consulting provider notified?: Yes 09/01/17 13:33 Consult Physician Routine Consulting Provider: Zaki Ballard Consult Reason/Comments: possible HAP Do you want consulting provider notified?: Yes [facility] Course: This is a 71-year-old male one of Dr. Lucas Gallo's patient with past medical history of hypertension, hyperlipidemia, diabetes, COPD, ,CHF , alcoholism and worsening heart failure who had open heart surgery with the CABG 2015 ended up having multiple complications and the multiple rehospitalization for worsening shortness of breath, A. fib and other complication. He was admitted from facility 08/11/2017 until when he stayed in bed without anybody checking on him for 2 days, and was found by a neighbor prior to his admission secondary to mental status changes, aspiration pneumonia, required ventilatory support August 19 to August 21, seen by Dr. Presley, Dr. Heriberto Mcbride. LP do that had ruled out encephalitis and CVA, he has bilateral pneumonia at that time and CHF with effusions, CT of the brain showed possibility of evolving subacute infarct internal capsule Patient was transferred from [facility] secondary to mental status changes obtundation, and was found to have a fever subsequently sent to the emergency room. Unknown whether the patient was feeding with assistance or supervised feedings, no family member was available at that time for evaluation , funez was most likely placed from the emergency room patient was lethargic when seen, he can follow commands, narcotics are held back, patient remains to be hypertensive highest blood pressure 201/93, T-max of 100.14 L pulse ox 94% to 99% labs shows double basic count 10.4, hemoglobin 10.9, creatinine 1.8 from a previous of 2.2 troponin of 0.063 blood sugar of 114 urinalysis shows urine WBC 182. Chest x-ray shows suspicious for posterior by basilar segment in a focal pneumonia aspiration pneumonia considered mild interstitial prominence chronic diffuse demineralization suspected pulmonary arterial hypertension Previous Imaging studies 08/12/17: Echocardiogram reveals EF of 50-55% with moderate concentric left ventricular hypertrophy, LA severely dilated at greater than 40, are appears enlarged, mild mitral calcification, mild mitral regurgitation, mild tricuspid regurgitation. Patient has been seen and evaluated by cardiology. Beta kojo was not started due to history of symptomatic bradycardia. 09/01: Patient has been afebrile since admission. Pulse ox is 90-93% on 2-3 L nasal cannula. Pulse is running in the 50s. Blood pressure is slightly on the high side. The Lantus 40 creatinine 2.03. Urine culture is in progress. Speech therapy is following and planning for modified barium swallow. Consults with Dr. Louis and Dr. Nicholas are pending. There is concern that mental status changes are related to possible uncontrolled seizures. Patient has been maintained on Keppra. Reviewed previous cultures and Diflucan has been added. Sputum cultures been ordered. Repeat chest x-ray shows persistent small to moderate size right greater than left pleural effusions with associated bibasilar atelectasis and/or infiltrate. Contrast-filled distal esophagus after her procedure raises concern for significant gastroesophageal reflux. Consult with Dr. Ballard added for possible aspiration pneumonia. Patient is more alert from admission. He denies any abdominal pain, cough, headache. 09/02: Patient has been seen by Dr. Louis with recommendations to continue Zosyn and aspiration precautions. Patient is followed by Dr. Ballard for bilateral pneumonia with small right sided pleural effusion and recommend continuing Levaquin and Zosyn. EEG is abnormal due to presence of generalized slowing of the background rhythm mostly in the theta range. This is consistent with mild encephalopathy. No epileptiform discharges were seen. Patient has been seen by Dr. Nicholas for metabolic encephalopathy due to pneumonia and UTI and renal insufficiency. Continue Keppra at home dose. No further neuro workup is necessary and Dr. Nicholas is following on an as-needed basis. Pulse ox is 99% on 3 L nasal cannula. Patient has been afebrile. White count is normal. BUN is 32 and creatinine 1.78. Speech therapy performed modified barium swallow that was within functional level for patient's advanced age. Diet recommendation is mechanical soft with thin liquids. He is alert and oriented 3. quality assurance monitor body is atrial fibrillation rate controlled. Patient denies any cough. He states he is feeling well. He did eat 75% of his breakfast today and Magic cup in addition. Dr. Louis has recommended Avelox for discharge. Plan is to monitor overnight and discharge tomorrow. 09/03. Patient continues to be requiring 3 L of nasal cannula. He is slow to respond but is answering appropriately. Alert and oriented X1. Good urine output. Patient is asymptomatic. Possible discharge Tuesday. 09/04 Patient feels congested. Oxygen requirements has decreased saturating at 92 % on room air. Flutter valve initiated. CT chest suggests extensive airspace disease at lower lung bases worse on the right with pleural effusions and enlarged LAD. 09/05: Patient in about 50% of his breakfast and also drank his Ensure this morning. He denies any new complaints. Pulse ox is 94% on 2 L nasal cannula. [facility] condition. New medication reconciliation has been completed and placed on chart. Discharge diagnoses: 1. Recurrent Metabolic encephalopathy with sepsis sources include gram- negative pneumonia and UTI 2. Acute hypoxic respiratory failure with previous history of mechanical ventilation August 18 to 08/21/2017. 3. Elevated troponin, without evidence of acute coronary syndrome. 4. CKD stage III with recent acute failure secondary to ATN secondary to sepsis. 5. Arrhythmia history with prior Nonsustained ventricular tachycardia on 2015 H and was seen by cardiology echocardiogramJuly 2016 showed atrial fibrillation with small pericardial effusion noted ejection fraction 45-50% inferolateral hypokinesis with palpation of LA size over 40. Electrolyte management is optimized 6. History bilateral hydronephrosis mild 7. CAD post CABG. 8. Diabetes mellitus type II 9. Hypertensive cardiovascular disease. 10. Hyperlipidemia 11. Chronic A. fib. 12. Compensated chronic systolic and possible diastolic heart failure. 13. Recurrent depression 14. Seizure history 15. BPH 16. Severe GERD 17. Rhabdomyolysis on previous admission 18. Sacral decubitus stage I secondary to prolonged immobilization 19. Severe protein calorie malnutrition due to lack of oral intake. Appetite is improving. 20. Chronic low back pain. Discharge plan: Return to [facility] on Tuesday. Impression and plan of care have been directed as dictated by the signing physician. Carly Greene nurse practitioner acting as scribe for signing physician. Patient Condition at Discharge: Good Plan - Discharge Summary Discharge Rx Participant: No New Discharge Prescriptions: New Moxifloxacin HCl [Avelox] 400 mg PO DAILY #10 tablet amLODIPine [Norvasc] 5 mg PO BID #0 tab Formoterol Fumarate [Perforomist] 20 mcg INHALATION RT-BID nebu Ipratropium-Albuterol Nebulize [Duoneb 0.5 mg-3 mg/3 ml Soln] 3 ml INHALATION RT-QID PRN ampul.neb PRN Reason: Shortness Of Breath Or Wheezing Continue levETIRAcetam [Keppra] 750 mg PO BID Isosorbide Mononitrate ER [Imdur] 30 mg PO DAILY Atorvastatin [Lipitor] 40 mg PO HS Omeprazole [PriLOSEC] 20 mg PO BID Potassium Chloride ER [K-Dur 20] 20 meq PO HS Montelukast [Singulair] 10 mg PO DAILY Albuterol Inhaler [Ventolin Hfa Inhaler] 2 puff INHALATION RT-QID PRN PRN Reason: Shortness Of Breath Budesonide [Pulmicort] 0.5 mg INHALATION RT-BID Ipratropium-Albuterol Nebulize [Duoneb 0.5 mg-3 mg/3 ml Soln] 3 ml INHALATION RT-QID Nitroglycerin Sl Tabs [Nitrostat] 0.4 mg SUBLINGUAL Q5M PRN PRN Reason: Angina PARoxetine [Paxil] 10 mg PO DAILY tab Sodium Bicarbonate Tab 650 mg PO BID tab Tamsulosin [Flomax] 0.4 mg PO PC-SUPPER cap.er.24h Furosemide [Lasix] 40 mg PO DAILY #0 tab Insulin Aspart [NovoLOG (formulary)] See Protocol SQ ACHS hydrALAZINE HCL [Apresoline] 100 mg PO TID Metoprolol Tartrate [Lopressor] 12.5 mg PO BID Multivitamins, Thera [Multivitamin (formulary)] 1 tab PO HS Lisinopril [Zestril] 5 mg PO DAILY Prostat Sugar Free 30 ml PO BID Changed HYDROcodone/APAP 5-325MG [[place] 5-325] 0.5 tab PO TID PRN #11 tab PRN Reason: Pain Discontinued Baclofen 10 mg PO HS Fluconazole [Diflucan] 100 mg PO DAILY #5 tab Insulin Detemir [Levemir] 7 unit SQ DAILY Discharge Medication List Isosorbide Mononitrate ER [Imdur] 30 mg PO DAILY 04/26/14 [History] levETIRAcetam [Keppra] 750 mg PO BID 04/26/14 [History] Atorvastatin [Lipitor] 40 mg PO HS 06/14/14 [History] Omeprazole [PriLOSEC] 20 mg PO BID 04/18/16 [History] Potassium Chloride ER [K-Dur 20] 20 meq PO HS 05/05/16 [History] Montelukast [Singulair] 10 mg PO DAILY 06/16/16 [History] Albuterol Inhaler [Ventolin Hfa Inhaler] 2 puff INHALATION RT-QID PRN 08/11/17 [ History] Budesonide [Pulmicort] 0.5 mg INHALATION RT-BID 08/11/17 [History] Ipratropium-Albuterol Nebulize [Duoneb 0.5 mg-3 mg/3 ml Soln] 3 ml INHALATION RT -QID 08/11/17 [History] Nitroglycerin Sl Tabs [Nitrostat] 0.4 mg SUBLINGUAL Q5M PRN 08/11/17 [History] Furosemide [Lasix] 40 mg PO DAILY #0 tab 08/26/17 [Rx] PARoxetine [Paxil] 10 mg PO DAILY tab 08/26/17 [Rx] Sodium Bicarbonate Tab 650 mg PO BID tab 08/26/17 [Rx] Tamsulosin [Flomax] 0.4 mg PO PC-SUPPER cap.er.24h 08/26/17 [Rx] Insulin Aspart [NovoLOG (formulary)] See Protocol SQ ACHS 08/31/17 [History] Lisinopril [Zestril] 5 mg PO DAILY 08/31/17 [History] Metoprolol Tartrate [Lopressor] 12.5 mg PO BID 08/31/17 [History] Multivitamins, Thera [Multivitamin (formulary)] 1 tab PO HS 08/31/17 [History] Prostat Sugar Free 30 ml PO BID 08/31/17 [History] hydrALAZINE HCL [Apresoline] 100 mg PO TID 08/31/17 [History] Formoterol Fumarate [Perforomist] 20 mcg INHALATION RT-BID nebu 09/02/17 [Rx] HYDROcodone/APAP 5-325MG [[place] 5-325] 0.5 tab PO TID PRN #11 tab 09/02/17 [Rx] Ipratropium-Albuterol Nebulize [Duoneb 0.5 mg-3 mg/3 ml Soln] 3 ml INHALATION RT -QID PRN ampul.neb 09/02/17 [Rx] Moxifloxacin HCl [Avelox] 400 mg PO DAILY #10 tablet 09/02/17 [Rx] amLODIPine [Norvasc] 5 mg PO BID #0 tab 09/02/17 [Rx] Follow up Appointment(s)/Referral(s): Janet Blackman MD [Primary Care Provider] - 1 Week Patient Instructions/Handouts: How to Stop Smoking (DC) Discharge Disposition: TRANSFER TO SNF/ECF
--- NOTE | 2017-09-05 16:23 | PN ---
PROGRESS NOTE DATE OF SERVICE: 09/05/2017 REASON FOR FOLLOWUP: Recurrent aspiration pneumonia. INTERVAL HISTORY: The patient is afebrile, has been breathing comfortably. Denies having any chest pain. Has occasional cough, not bringing up any sputum. No abdominal pain. No diarrhea. PHYSICAL EXAMINATION: Blood pressure 157/74 with a pulse of 69, temperature 98.8. He is 91% on 2 L nasal cannula. General description is an elderly male lying in bed in no distress. RESPIRATORY SYSTEM: Unlabored breathing with decreased breath sounds in the bases. No wheeze. HEART: S1, S2. Regular rate and rhythm. ABDOMEN: Soft. No tenderness. LABS: Hemoglobin 9.3, white count 5.9, BUN of 32, creatinine 1.78. DIAGNOSTIC IMPRESSION AND PLAN: Patient with recurrent aspiration pneumonia, clinically responding to the Zosyn. Plan is to finish therapy with oral Avelox 400 daily for another 7 to 10 days with close outpatient followup. MMODL / IJN: [id number] /
[2017-09-05] MEDS: TAMSULOSIN 0.4 MG CAP.ER.24H PO SCH (17:14)
[2017-09-05 17:38] LABS: Glucose,Whole Blood 158 mg/dL (75-99)
[2017-09-05 20:35] LABS: Glucose,Whole Blood 259 mg/dL (75-99)
[2017-09-05] MEDS: POTASSIUM CHLORIDE ER 20 MEQ TAB.ER PO SCH (22:57)
[2017-09-05] MEDS: MULTIVITAMINS, THERA 1 EACH TAB PO SCH (22:57)
[2017-09-06 02:47] LABS: Glucose,Whole Blood 107 mg/dL (75-99)
[2017-09-06] MEDS: PIPERACILLIN-TAZOBACTAM 3.375 GM in DEXTROSE/WATER 1 50ML.BAG IVPB SCH (03:15)
[2017-09-06 05:14] LABS: Glucose,Whole Blood 122 mg/dL (75-99)
[2017-09-06 07:12] VITALS: BP 172/73; TEMP 97.7
[2017-09-06] MEDS: FORMOTEROL FUMARATE 20 MCG/2 ML NEBU INHALATION SCH (07:20)
[2017-09-06] MEDS: BUDESONIDE 1 MG/2 ML NEBU INHALATION SCH (07:20)
[2017-09-06] MEDS: IPRATROPIUM-ALBUTEROL 3 ML NEB INHALATION SCH (07:21)
[2017-09-06 07:24] LABS: Glucose,Whole Blood 112 mg/dL (75-99)
[2017-09-06 07:34] VITALS: PULSE 68
[2017-09-06] MEDS: INSULIN ASPART 100 UNIT/ML 1 ML 10 ML VIAL SQ SCH (08:05)
[2017-09-06] MEDS: HEPARIN SODIUM,PORCINE 5,000 UNIT/ML 1 ML VIAL SQ SCH (08:26)
[2017-09-06] MEDS: hydrALAZINE HCL 50 MG TAB PO SCH (08:26)
[2017-09-06] MEDS: METOPROLOL TARTRATE 12.5 MG TAB PO SCH (08:27)
[2017-09-06] MEDS: ISOSORBIDE MONONITRATE ER 30 MG TAB.ER.24H PO SCH (08:27)
[2017-09-06] MEDS: SODIUM BICARBONATE TAB 650 MG TAB PO SCH (08:27)
[2017-09-06] MEDS: PARoxetine 10 MG TAB PO SCH (08:27)
[2017-09-06] MEDS: FLUCONAZOLE 100 MG TAB PO SCH (08:27)
[2017-09-06] MEDS: FUROSEMIDE 40 MG TAB PO SCH (08:27)
[2017-09-06] MEDS: LISINOPRIL 5 MG TAB PO SCH (08:27)
[2017-09-06] MEDS: amLODIPine 5 MG TAB PO SCH (08:27)
[2017-09-06] MEDS: PANTOPRAZOLE 40 MG TABLET PO SCH (08:27)
== END 2017-09-06 10:15 | DRG 871 ==
LOC: EC 10:10 → 6SEL 13:12 → 4MS4W 09-02 22:30
PROVIDERS: ADMIT Family Medicine; ATTEND Family Medicine
DX: A41.50 Gram-negative sepsis, unspecified (principal); J15.6 Pneumonia due to other Gram-negative bacteria; E43 Unspecified severe protein-calorie malnutrition; G93.41 Metabolic encephalopathy; G93.49 Other encephalopathy; I50.43 Acute on chronic combined systolic (congestive) and diastolic (congestive) heart failure; J69.0 Pneumonitis due to inhalation of food and vomit; J96.21 Acute and chronic respiratory failure with hypoxia; N17.0 Acute kidney failure with tubular necrosis; F33.9 Major depressive disorder, recurrent, unspecified; I13.0 Hypertensive heart and chronic kidney disease with heart failure and stage 1 through stage 4 chronic kidney disease, or unspecified chronic kidney disease; J98.11 Atelectasis; N39.0 Urinary tract infection, site not specified; R64 Cachexia; N13.30 Unspecified hydronephrosis; D63.8 Anemia in other chronic diseases classified elsewhere; R65.20 Severe sepsis without septic shock; E11.22 Type 2 diabetes mellitus with diabetic chronic kidney disease; E78.5 Hyperlipidemia, unspecified; F17.200 Nicotine dependence, unspecified, uncomplicated; F03.90 Unspecified dementia, unspecified severity, without behavioral disturbance, psychotic disturbance, mood disturbance, and anxiety; G40.909 Epilepsy, unspecified, not intractable, without status epilepticus; G47.33 Obstructive sleep apnea (adult) (pediatric); G89.4 Chronic pain syndrome; I08.1 Rheumatic disorders of both mitral and tricuspid valves; I25.10 Atherosclerotic heart disease of native coronary artery without angina pectoris; I25.2 Old myocardial infarction; I48.2 Chronic atrial fibrillation; I49.3 Ventricular premature depolarization; J44.9 Chronic obstructive pulmonary disease, unspecified; K21.9 Gastro-esophageal reflux disease without esophagitis; L89.151 Pressure ulcer of sacral region, stage 1; M19.90 Unspecified osteoarthritis, unspecified site; N18.3 Chronic kidney disease, stage 3 (moderate); N40.0 Benign prostatic hyperplasia without lower urinary tract symptoms; F10.20 Alcohol dependence, uncomplicated; H26.9 Unspecified cataract; M10.9 Gout, unspecified; M54.5 Low back pain; R77.8 Other specified abnormalities of plasma proteins; Z79.4 Long term (current) use of insulin; Z79.82 Long term (current) use of aspirin; Z79.899 Other long term (current) drug therapy; Z95.1 Presence of aortocoronary bypass graft; Z91.81 History of falling; Z87.442 Personal history of urinary calculi; Z86.73 Personal history of transient ischemic attack (TIA), and cerebral infarction without residual deficits; Z99.81 Dependence on supplemental oxygen; Z87.440 Personal history of urinary (tract) infections; Z88.7 Allergy status to serum and vaccine; Z91.048 Other nonmedicinal substance allergy status; Z82.49 Family history of ischemic heart disease and other diseases of the circulatory system; Z82.61 Family history of arthritis; Z80.9 Family history of malignant neoplasm, unspecified; Z81.8 Family history of other mental and behavioral disorders; Z84.89 Family history of other specified conditions
CPT/HCPCS: 36415; 71046; 71250; 74230; 80053; 80177; 81001; 82533; 82550; 82553; 83036; 83605; 83735; 83880; 84443; 84484; 85025; 85027; 85610; 85730; 87040; 87086; 87502; 93005; 94640; 94760; 95819; 96365; 99285

== ENCOUNTER 2017-09-14 14:49 | Emergency (ER) | payer MEDICARE ==
[2017-09-14] MEDS ORDERED: SODIUM CHLORIDE 0.9% 1,000 ML IV STA (14:55)
[2017-09-14] MEDS ORDERED: SODIUM CHLORIDE 0.9% 500 ML IV STA (14:55)
--- NOTE | 2017-09-14 15:00 | ED ---
Altered Mental Status HPI - General Chief Complaint: Altered Mental Status Stated Complaint: altered mental status Time Seen by Provider: 09/14/17 14:54 Source: EMS, RN notes reviewed, old records reviewed Mode of arrival: EMS Limitations: altered mental status - History of Present Illness Initial Comments: This is a 71-year-old male history of multiple medical problems including a recent admission this hospital for pneumonia a history that includes UTI COPD GERD history of alcohol abuse please see the accompanying list for the complete list of medical problems who was brought in for evaluation by EMS from a local [facility] with altered mental status this started between 24 and 36 hours ago. No trauma is reported no fevers chills or sweats he was noted have a low pulse oximetry by paramedics this did respond to oxygen administration. The patient himself is a poor historian. Per paramedics patient did demonstrate crackles in the bases of his lungs. He also looked dusky upon the initial encounter he did improve after oxygen was administered. MD Complaint: altered mental status, decreased responsiveness - Related Data Home Medications Medication Instructions Recorded Confirmed Isosorbide Mononitrate ER [Imdur] 30 mg PO DAILY 04/26/14 09/14/17 levETIRAcetam [Keppra] 750 mg PO BID 04/26/14 09/14/17 Atorvastatin [Lipitor] 40 mg PO HS 06/14/14 09/14/17 Omeprazole [PriLOSEC] 20 mg PO BID 04/18/16 09/14/17 Potassium Chloride ER [K-Dur 20] 20 meq PO HS 05/05/16 09/14/17 Montelukast [Singulair] 10 mg PO HS 06/16/16 09/14/17 Albuterol Inhaler [Ventolin Hfa 2 puff INHALATION RT-Q6H PRN 08/11/17 09/14/17 Inhaler] Budesonide [Pulmicort] 0.5 mg INHALATION RT-BID 08/11/17 09/14/17 Ipratropium-Albuterol Nebulize 3 ml INHALATION RT-QID@08,12,16,20 08/11/1709/14 [Duoneb 0.5 mg-3 mg/3 ml Soln] Nitroglycerin Sl Tabs [Nitrostat] 0.4 mg SUBLINGUAL Q5M PRN 08/11/17 09/14/17 Insulin Aspart [NovoLOG See Protocol SQ ACHS 08/31/17 09/14/17 (formulary)] Lisinopril [Zestril] 5 mg PO DAILY 08/31/17 09/14/17 Metoprolol Tartrate [Lopressor] 12.5 mg PO BID 08/31/17 09/14/17 Multivitamins, Thera [Multivitamin 1 tab PO HS 08/31/17 09/14/17 (formulary)] Prostat Sugar Free 30 ml PO BID 08/31/17 09/14/17 hydrALAZINE HCL [Apresoline] 100 mg PO TID@08,12,16 08/31/17 09/14/17 Clotrimazole/Betamethasone Dip 1 applic TOPICAL BID 09/14/17 09/14/17 [Lotrisone Cream] Furosemide [Lasix] 80 mg PO BID 09/14/17 09/14/17 HYDROcodone/APAP 5-325MG [[place] 1 tab PO Q8H PRN 09/14/17 09/14/17 5-325] Ipratropium-Albuterol Nebulize 3 ml INHALATION RT-Q6H PRN 09/14/17 09/14/17 [Duoneb 0.5 mg-3 mg/3 ml Soln] Tamsulosin [Flomax] 0.4 mg PO BID 09/14/17 09/14/17 Previous Rx's Medication Instructions Recorded PARoxetine [Paxil] 10 mg PO DAILY tab 08/26/17 Sodium Bicarbonate Tab 650 mg PO BID tab 08/26/17 Formoterol Fumarate [Perforomist] 20 mcg INHALATION RT-BID nebu 09/02/17 Moxifloxacin HCl [Avelox] 400 mg PO DAILY #10 tablet 09/02/17 amLODIPine [Norvasc] 5 mg PO BID #0 tab 09/02/17 Furosemide [Lasix] 80 mg PO Q8HR #10 tablet 09/14/17 Allergies Allergy/AdvReac Type Severity Reaction Status Date / Time adhesive AdvReac Unknown Verified 09/14/17 14:50 influenza virus vaccine, AdvReac Nausea & Verified 09/14/17 14:50 specific Vomiting & [Influenza Virus Diarrhea Vacc,Specific] Review of Systems ROS Statement: Those systems with pertinent positive or pertinent negative responses have been documented in the HPI. ROS Other: All systems not noted in ROS Statement are negative. Limitations: ROS unobtainable due to patients medical condition Past Medical History Past Medical History: Atrial Fibrillation, Coronary Artery Disease (CAD), Heart Failure, COPD, Diabetes Mellitus, GERD/Reflux, Hyperlipidemia, Hypertension, Myocardial Infarction (MD), Musculoskeletal Disorder, Osteoarthritis (OA), Pneumonia, Prostate Disorder, Seizure Disorder, Sleep Apnea/CPAP/BIPAP Additional Past Medical History / Comment(s): Pt recently admitted [facility] 08/11/17 with metabolic encephalopathy with sepsis secondary to aspiration pneumonia/UTI and suspected Streptococcus pneumoniae bacteremia. Other HX: Nonsustained Vtach, pneumonias, severe GERD, TIA, Armas's Palsey, turinaty retention, phimosis , bilateral hydronephrosis, funez caths, suprapubic cath in past, chronic UTI'S , CATARACTS bilaterally, GOUT,DOES'NT USE CPAP KIDNEY STONE, BULGING DISCS, O2 3l nc most of the time, MD 11/2013 and seizures with the MD BPH, chronic low back pain, protein calorie malnutrition. 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 Past Anesthesia/Blood Transfusion Reactions: No Reported Reaction Past Psychological History: Depression Smoking Status: Current every day smoker Past Alcohol Use History: None Reported Past Drug Use History: None Reported - Past Family History Father Family Medical History: Cancer, Dementia, Hyperlipidemia, Hypertension, Myocardial Infarction (MD) Additional Family Medical History / Comment(s): AT AGE 78- Mother Family Medical History: No Reported History, Coronary Artery Disease (CAD), Dementia, Myocardial Infarction (MD) Additional Family Medical History / Comment(s): AT AGE 86 Brother(s) Family Medical History: No Reported History Sister(s) Family Medical History: No Reported History, Rheumatoid Arthritis (RA) Son(s) Family Medical History: No Reported History Daughter(s) Family Medical History: No Reported History General Exam - General Exam Comments Initial Comments: This is a well-developed well-nourished awake but lethargic male who does not respond to verbal suggestions or commands Limitations: altered mental status General appearance: alert, lethargic Head exam: Present: atraumatic, normocephalic, normal inspection Eye exam: Present: normal appearance, PERRL, EOMI. Absent: scleral icterus, conjunctival injection, periorbital swelling ENT exam: Present: mucous membranes dry Neck exam: Present: normal inspection. Absent: tenderness, meningismus, lymphadenopathy Respiratory exam: Present: decreased breath sounds. Absent: respiratory distress, wheezes, rales, rhonchi, stridor Cardiovascular Exam: Present: normal rhythm, bradycardia, normal heart sounds. Absent: systolic murmur, diastolic murmur, rubs, gallop, clicks GI/Abdominal exam: Present: soft, normal bowel sounds. Absent: distended, tenderness, guarding, rebound, rigid exam: Present: other (Indwelling Funez catheter) Extremities exam: Present: normal inspection, full ROM, normal capillary refill. Absent: tenderness, pedal edema, joint swelling, calf tenderness Back exam: Present: normal inspection Neurological exam: Present: alert, altered, CN II-XII intact Psychiatric exam: Present: flat affect Skin exam: Present: warm, dry, intact, normal color. Absent: rash Course Vital Signs 09/14/17 14:51 Temperature 97.9 F Pulse Rate 60 Respiratory 20 Rate Blood Pressure 126/63 O2 Sat by Pulse 100 Oximetry Medical Decision Making - Medical Decision Making I did discuss the findings with Dr. Olguin. Patient will be discharged back to [facility] with increasing Lasix dosage and to be managed at the [facility]. The presentation is consistent with CHF exacerbation this is a likely etiology of the symptoms. No evidence of any infectious processes at this time - Lab Data Result diagrams: 09/14/17 15:00 09/14/17 15:00 Lab Results 09/14/17 09/14/17 09/14/17 Range/Units 15:00 15:00 15:00 WBC 7.4 (3.8-10.6) k/uL RBC 3.31 L (4.30-5.90) m/uL Hgb 9.1 L (13.0-17.5) gm/dL Hct 29.1 L (39.0-53.0) % MCV 87.8 (80.0-100.0) fL MCH 27.5 (25.0-35.0) pg MCHC 31.3 (31.0-37.0) g/dL RDW 15.3 (11.5-15.5) % Plt Count 208 (150-450) k/uL Neutrophils % 77 % Lymphocytes % 12 % Monocytes % 6 % Eosinophils % 2 % Basophils % 1 % Neutrophils # 5.7 (1.3-7.7) k/uL Lymphocytes # 0.9 L (1.0-4.8) k/uL Monocytes # 0.4 (0-1.0) k/uL Eosinophils # 0.2 (0-0.7) k/uL Basophils # 0.0 (0-0.2) k/uL Hypochromasia Slight Sodium (137-145) mmol/L Potassium (3.5-5.1) mmol/L Chloride (98-107) mmol/L Carbon Dioxide (22-30) mmol/L Anion Gap mmol/L BUN (9-20) mg/dL Creatinine (0.66-1.25) mg/dL Est GFR (CKD-EPI)AfAm (>60 ml/min/1.73 sqM) Est GFR (CKD-EPI)NonAf (>60 ml/min/1.73 sqM) Glucose (74-99) mg/dL Calcium (8.4-10.2) mg/dL Magnesium (1.6-2.3) mg/dL Total Bilirubin (0.2-1.3) mg/dL AST (17-59) U/L ALT (21-72) U/L Alkaline Phosphatase (38-126) U/L Ammonia <9 (<30) umol/L Troponin I (0.000-0.034) ng/mL NT-Pro-B Natriuret Pep 6860 pg/mL Total Protein (6.3-8.2) g/dL Albumin (3.5-5.0) g/dL Lipase (23-300) U/L Urine Color Urine Appearance (Clear) Urine pH (5.0-8.0) Ur Specific [place] (1.001-1.035) Urine Protein (Negative) Urine Glucose (UA) (Negative) Urine Ketones (Negative) Urine Blood (Negative) Urine Nitrite (Negative) Urine Bilirubin (Negative) Urine Urobilinogen (<2.0) mg/dL Ur Leukocyte Esterase (Negative) Urine RBC (0-5) /hpf Urine WBC (0-5) /hpf Urine WBC Clumps (None) /hpf Ur Squamous Epith Cells (0-4) /hpf Urine Bacteria (None) /hpf Urine Mucus (None) /hpf 09/14/17 09/14/17 09/14/17 Range/Units 15:00 15:00 15:00 WBC (3.8-10.6) k/uL RBC (4.30-5.90) m/uL Hgb (13.0-17.5) gm/dL Hct (39.0-53.0) % MCV (80.0-100.0) fL MCH (25.0-35.0) pg MCHC (31.0-37.0) g/dL RDW (11.5-15.5) % Plt Count (150-450) k/uL Neutrophils % % Lymphocytes % % Monocytes % % Eosinophils % % Basophils % % Neutrophils # (1.3-7.7) k/uL Lymphocytes # (1.0-4.8) k/uL Monocytes # (0-1.0) k/uL Eosinophils # (0-0.7) k/uL Basophils # (0-0.2) k/uL Hypochromasia Sodium 145 (137-145) mmol/L Potassium 4.7 (3.5-5.1) mmol/L Chloride 105 (98-107) mmol/L Carbon Dioxide 28 (22-30) mmol/L Anion Gap 12 mmol/L BUN 36 H (9-20) mg/dL Creatinine 2.08 H (0.66-1.25) mg/dL Est GFR (CKD-EPI)AfAm 35 (>60 ml/min/1.73 sqM) Est GFR (CKD-EPI)NonAf 31 (>60 ml/min/1.73 sqM) Glucose 100 H (74-99) mg/dL Calcium 7.8 L (8.4-10.2) mg/dL Magnesium 1.6 (1.6-2.3) mg/dL Total Bilirubin 0.5 (0.2-1.3) mg/dL AST 26 (17-59) U/L ALT 26 (21-72) U/L Alkaline Phosphatase 120 (38-126) U/L Ammonia (<30) umol/L Troponin I <0.012 (0.000-0.034) ng/mL NT-Pro-B Natriuret Pep pg/mL Total Protein 6.7 (6.3-8.2) g/dL Albumin 2.8 L (3.5-5.0) g/dL Lipase 28 (23-300) U/L Urine Color Dark Yellow Urine Appearance Turbid (Clear) Urine pH 6.0 (5.0-8.0) Ur Specific [place] 1.018 (1.001-1.035) Urine Protein 3+ H (Negative) Urine Glucose (UA) Trace H (Negative) Urine Ketones Negative (Negative) Urine Blood Trace H (Negative) Urine Nitrite Negative (Negative) Urine Bilirubin Negative (Negative) Urine Urobilinogen 2.0 (<2.0) mg/dL Ur Leukocyte Esterase Large H (Negative) Urine RBC 51 H (0-5) /hpf Urine WBC >182 H (0-5) /hpf Urine WBC Clumps Many H (None) /hpf Ur Squamous Epith Cells 2 (0-4) /hpf Urine Bacteria Rare H (None) /hpf Urine Mucus Rare H (None) /hpf - EKG Data -: EKG Interpreted by Me (Atrial fibrillation with a rate of 58 QRS 90 QT since QTC of 472/463 old in) - Radiology Data Radiology results: report reviewed (X-ray does show evidence of CHF.), image reviewed Disposition Clinical Impression: Congestive heart failure (CHF), Renal insufficiency syndrome Disposition: HOME SELF-CARE Condition: Good Instructions: Heart Failure (ED), Chronic Kidney Disease (ED) Additional Instructions: Increase the daily Lasix dosing to 3 times a day 3 days Prescriptions: Furosemide [Lasix] 80 mg PO Q8HR #10 tablet Is patient prescribed a controlled substance at d/c from ED?: No Referrals: Janet Blackman MD [Primary Care Provider] - 1-2 days
[2017-09-14 15:24] LABS: Basophils % (A) 1 %; Eosinophils # (A) 0.2 k/uL (0-0.7); Eosinophils % (A) 2 %; HCT 29.1 % (39.0-53.0); HGB 9.1 gm/dL (13.0-17.5); Hypochromasia Slight; Lymphocytes # (A) 0.9 k/uL (1.0-4.8); Lymphocytes % (A) 12 %; MCH 27.5 pg (25.0-35.0); MCHC 31.3 g/dL (31.0-37.0); MCV 87.8 fL (80.0-100.0); Mean Platelet Volume 7.8; Monocytes # (A) 0.4 k/uL (0-1.0); Monocytes % (A) 6 %; Neutrophils # (A) 5.7 k/uL (1.3-7.7); Neutrophils % (A) 77 %; Platelet Count 208 k/uL (150-450); RBC 3.31 m/uL (4.30-5.90); RDW 15.3 % (11.5-15.5); WBC 7.4 k/uL (3.8-10.6)
[2017-09-14 15:31] LABS: Albumin 2.8 g/dL (3.5-5.0); Appearance,Urine Turbid (Clear); Bacteria,Urine Rare /hpf; Bilirubin,Urine Negative (Negative); Blood,Urine Trace (Negative); Calcium 7.8 mg/dL (8.4-10.2); Color,Urine Dark Yellow; Glucose,Urine (UA) Trace (Negative); Ketones,Urine Negative (Negative); Leukocyte Esterase,Urine Large (Negative); Magnesium 1.6 mg/dL (1.6-2.3); Mucus,Urine Rare /hpf; Nitrite,Urine Negative (Negative); Potassium 4.7 mmol/L (3.5-5.1); Protein,Urine 3+ (Negative); RBC,Urine 51 /hpf (0-5); Specific Gravity,Urine 1.018 (1.001-1.035); Squamous Epithelial Cell,Urine 2 /hpf (0-4); Total Bilirubin 0.5 mg/dL (0.2-1.3); Total Protein 6.7 g/dL (6.3-8.2); WBC,Urine >182 /hpf (0-5)
--- NOTE | 2017-09-14 15:48 | XR ---
EXAMINATION TYPE: XR chest 2V DATE OF EXAM: 09/14/2017 COMPARISON: 09/11/2017 HISTORY: Shortness of breath FINDINGS: Noted is pulmonary venous congestion with scattered infiltrates. There is also cardiomegaly and small effusions. IMPRESSION: Findings compatible with congestive failure. Infiltrates of other etiology are not excluded. Clinical correlation and progress studies are recommended.
[2017-09-14] MEDS ORDERED: FUROSEMIDE 10 MG/ML 4 ML VIAL IV STA (16:39)
[2017-09-14 19:39] VITALS: BP 134/79; PULSE 67; RESP 18; TEMP 98
== END 2017-09-14 20:01 | disposition home or self-care (01) ==
LOC: EC 14:49
DX: I11.0 Hypertensive heart disease with heart failure (principal); I50.9 Heart failure, unspecified; I25.10 Atherosclerotic heart disease of native coronary artery without angina pectoris; J44.9 Chronic obstructive pulmonary disease, unspecified; E11.9 Type 2 diabetes mellitus without complications; I48.91 Unspecified atrial fibrillation; K21.9 Gastro-esophageal reflux disease without esophagitis; E78.5 Hyperlipidemia, unspecified; M19.90 Unspecified osteoarthritis, unspecified site; G40.909 Epilepsy, unspecified, not intractable, without status epilepticus; G47.30 Sleep apnea, unspecified; F17.200 Nicotine dependence, unspecified, uncomplicated; Z99.89 Dependence on other enabling machines and devices; Z86.73 Personal history of transient ischemic attack (TIA), and cerebral infarction without residual deficits; Z95.1 Presence of aortocoronary bypass graft; Z98.890 Other specified postprocedural states; Z79.4 Long term (current) use of insulin; Z79.51 Long term (current) use of inhaled steroids; Z79.899 Other long term (current) drug therapy; Z88.7 Allergy status to serum and vaccine; Z91.048 Other nonmedicinal substance allergy status
CPT/HCPCS: 36415; 93005; 83880; 80053; 82140; 83690; 83735; 84484; 85025; 81001; 87040; 71046; 99285; 96374; 96361 ×4; J1940

== ENCOUNTER 2017-09-15 19:02 | Inpatient (IN) | payer MEDICARE ==
[2017-09-15] MEDS ORDERED: IPRATROPIUM-ALBUTEROL 3 ML NEB INHALATION STA (19:05)
[2017-09-15] MEDS ORDERED: ACETAMINOPHEN TAB 500 MG TAB PO STA (19:15)
--- NOTE | 2017-09-15 19:15 | ED ---
General Adult HPI - General Stated complaint: Weakness Time Seen by Provider: 09/15/17 19:02 Source: EMS, RN notes reviewed Mode of arrival: EMS Limitations: altered mental status - History of Present Illness Initial comments: This is a 71-year-old male who comes to us from a halfway. Patient was sent to us because he was satting down to the upper 80s and was generally weak and according to staff somewhat decreased level of consciousness. Patient was put on some oxygen by EMS and sat up in bed and was oxygenating in the mid 90s. Patient was much more alert and able to answer basic questions and follow basic commands. Patient denies any chest pain or abdominal pain. Patient denies nausea vomiting diarrhea. Patient states she's been coughing but not been able cough anything up. No one else is with the patient and the patient does get a lot of detail with his answers. -: week(s) - Related Data Home Medications Medication Instructions Recorded Confirmed Isosorbide Mononitrate ER [Imdur] 30 mg PO DAILY 04/26/14 09/15/17 levETIRAcetam [Keppra] 750 mg PO BID 04/26/14 09/15/17 Atorvastatin [Lipitor] 40 mg PO HS 06/14/14 09/15/17 Omeprazole [PriLOSEC] 20 mg PO BID 04/18/16 09/15/17 Potassium Chloride ER [K-Dur 20] 20 meq PO HS 05/05/16 09/15/17 Montelukast [Singulair] 10 mg PO HS 06/16/16 09/15/17 Albuterol Inhaler [Ventolin Hfa 2 puff INHALATION RT-Q6H PRN 08/11/17 09/15/17 Inhaler] Budesonide [Pulmicort] 0.5 mg INHALATION RT-BID 08/11/17 09/15/17 Ipratropium-Albuterol Nebulize 3 ml INHALATION RT-QID@08,12,16,20 08/11/1709/15 [Duoneb 0.5 mg-3 mg/3 ml Soln] Nitroglycerin Sl Tabs [Nitrostat] 0.4 mg SUBLINGUAL Q5M PRN 08/11/17 09/15/17 Insulin Aspart [NovoLOG See Protocol SQ ACHS 08/31/17 09/15/17 (formulary)] Lisinopril [Zestril] 5 mg PO DAILY 08/31/17 09/15/17 Metoprolol Tartrate [Lopressor] 12.5 mg PO BID 08/31/17 09/15/17 Multivitamins, Thera [Multivitamin 1 tab PO HS 08/31/17 09/15/17 (formulary)] Prostat Sugar Free 30 ml PO BID 08/31/17 09/15/17 hydrALAZINE HCL [Apresoline] 100 mg PO TID@08,12,16 08/31/17 09/15/17 Clotrimazole/Betamethasone Dip 1 applic TOPICAL BID 09/14/17 09/15/17 [Lotrisone Cream] Furosemide [Lasix] 80 mg PO BID 09/14/17 09/15/17 HYDROcodone/APAP 5-325MG [[place] 1 tab PO Q8H PRN 09/14/17 09/15/17 5-325] Ipratropium-Albuterol Nebulize 3 ml INHALATION RT-Q6H PRN 09/14/17 09/15/17 [Duoneb 0.5 mg-3 mg/3 ml Soln] Tamsulosin [Flomax] 0.4 mg PO BID 09/14/17 09/15/17 Previous Rx's Medication Instructions Recorded PARoxetine [Paxil] 10 mg PO DAILY tab 08/26/17 Sodium Bicarbonate Tab 650 mg PO BID tab 08/26/17 Formoterol Fumarate [Perforomist] 20 mcg INHALATION RT-BID nebu 09/02/17 Moxifloxacin HCl [Avelox] 400 mg PO DAILY #10 tablet 09/02/17 amLODIPine [Norvasc] 5 mg PO BID #0 tab 09/02/17 Furosemide [Lasix] 80 mg PO Q8HR #10 tablet 09/14/17 Allergies Allergy/AdvReac Type Severity Reaction Status Date / Time adhesive AdvReac Unknown Verified 09/15/17 19:34 influenza virus vaccine, AdvReac Nausea & Verified 09/15/17 19:34 specific Vomiting & [Influenza Virus Diarrhea Vacc,Specific] Review of Systems ROS Statement: Those systems with pertinent positive or pertinent negative responses have been documented in the HPI. ROS Other: All systems not noted in ROS Statement are negative. Past Medical History Past Medical History: Atrial Fibrillation, Coronary Artery Disease (CAD), Heart Failure, COPD, Diabetes Mellitus, GERD/Reflux, Hyperlipidemia, Hypertension, Myocardial Infarction (LA), Musculoskeletal Disorder, Osteoarthritis (OA), Pneumonia, Prostate Disorder, Seizure Disorder, Sleep Apnea/CPAP/BIPAP Additional Past Medical History / Comment(s): Pt recently admitted [facility] 08/11/17 with metabolic encephalopathy with sepsis secondary to aspiration pneumonia/UTI and suspected Streptococcus pneumoniae bacteremia. Other HX: Nonsustained Vtach, pneumonias, severe GERD, TIA, Armas's Palsey, turinaty retention, phimosis , bilateral hydronephrosis, funez caths, suprapubic cath in past, chronic UTI'S , CATARACTS bilaterally, GOUT,DOES'NT USE CPAP KIDNEY STONE, BULGING DISCS, O2 3l nc most of the time, LA 11/2013 and seizures with the LA BPH, chronic low back pain, protein calorie malnutrition. 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 Past Anesthesia/Blood Transfusion Reactions: No Reported Reaction Past Psychological History: Depression Smoking Status: Current every day smoker Past Alcohol Use History: None Reported Past Drug Use History: None Reported - Past Family History Father Family Medical History: Cancer, Dementia, Hyperlipidemia, Hypertension, Myocardial Infarction (LA) Additional Family Medical History / Comment(s): AT AGE 78- Mother Family Medical History: No Reported History, Coronary Artery Disease (CAD), Dementia, Myocardial Infarction (LA) Additional Family Medical History / Comment(s): AT AGE 86 Brother(s) Family Medical History: No Reported History Sister(s) Family Medical History: No Reported History, Rheumatoid Arthritis (RA) Son(s) Family Medical History: No Reported History Daughter(s) Family Medical History: No Reported History General Exam - General Exam Comments Initial Comments: GENERAL: Patient is well-developed and well-nourished. Patient is nontoxic and well- hydrated and is in mild distress. ENT: Neck is soft and supple. No significant lymphadenopathy is noted. Oropharynx is clear. Moist mucous membranes. Neck has full range of motion without eliciting any pain. EYES: The sclera were anicteric and conjunctiva were pink and moist. Extraocular movements were intact and pupils were equal round and reactive to light. Eyelids were unremarkable. PULMONARY: Diminished breath sounds with some crackles in the right upper lobe and some extra wheezing CARDIOVASCULAR: Irregular rate and rhythm ABDOMEN: Soft and nontender with normal bowel sounds. No palpable organomegaly was noted. There is no palpable pulsatile mass. SKIN: Skin is clear with no lesions or rashes and otherwise unremarkable. NEUROLOGIC: Patient is alert and oriented 2 Cranial nerves II through XII are grossly intact. Motor and sensory are also intact. Normal speech, volume and content. Symmetrical smile. MUSCULOSKELETAL: Normal extremities with adequate strength and full range of motion. LYMPHATICS: No significant lymphadenopathy is noted Limitations: altered mental status Course Vital Signs 09/15/17 09/15/17 09/15/17 19:03 19:38 19:50 Temperature 100.2 F H Pulse Rate 67 64 73 Respiratory 20 Rate Blood Pressure 160/68 O2 Sat by Pulse 89 L Oximetry Medical Decision Making - Medical Decision Making EKG shows atrial fibrillation at 73 bpm QRS is under QT intervals 424 QTC is 467. Patient's EKG shows no ST segment elevation patient has some T-wave inversions in inferior leads as well as precordial leads V4 through V6 on these were seen on previous EKG. Patient has urinary tract infectious. I started the patient on Rocephin X-ray shows worsening CHF from yesterday. - Lab Data Result diagrams: 09/15/17 19:10 09/15/17 19:10 Lab Results 09/15/17 09/15/17 09/15/17 Range/Units 19:10 19:10 19:10 WBC 8.1 (3.8-10.6) k/uL RBC 3.37 L (4.30-5.90) m/uL Hgb 9.4 L (13.0-17.5) gm/dL Hct 29.9 L (39.0-53.0) % MCV 88.7 (80.0-100.0) fL MCH 27.8 (25.0-35.0) pg MCHC 31.3 (31.0-37.0) g/dL RDW 15.5 (11.5-15.5) % Plt Count 189 (150-450) k/uL Neutrophils % 71 % Lymphocytes % 17 % Monocytes % 7 % Eosinophils % 3 % Basophils % 0 % Neutrophils # 5.7 (1.3-7.7) k/uL Lymphocytes # 1.4 (1.0-4.8) k/uL Monocytes # 0.6 (0-1.0) k/uL Eosinophils # 0.2 (0-0.7) k/uL Basophils # 0.0 (0-0.2) k/uL Hypochromasia Slight PT (9.0-12.0) sec INR (<1.2) APTT (22.0-30.0) sec Sodium 146 H (137-145) mmol/L Potassium 4.8 (3.5-5.1) mmol/L Chloride 106 (98-107) mmol/L Carbon Dioxide 24 (22-30) mmol/L Anion Gap 16 mmol/L BUN 41 H (9-20) mg/dL Creatinine 2.54 H (0.66-1.25) mg/dL Est GFR (CKD-EPI)AfAm 28 (>60 ml/min/1.73 sqM) Est GFR (CKD-EPI)NonAf 24 (>60 ml/min/1.73 sqM) Glucose 106 H (74-99) mg/dL Plasma Lactic Acid [place] (0.7-2.0) mmol/L Calcium 8.0 L (8.4-10.2) mg/dL Total Bilirubin 0.5 (0.2-1.3) mg/dL AST 20 (17-59) U/L ALT 25 (21-72) U/L Alkaline Phosphatase 116 (38-126) U/L Total Creatine Kinase 50 L (55-170) U/L CK-MB (CK-2) 2.1 (0.0-2.4) ng/mL CK-MB (CK-2) Rel Index 4.2 Troponin I 0.015 (0.000-0.034) ng/mL NT-Pro-B Natriuret Pep pg/mL Total Protein 6.7 (6.3-8.2) g/dL Albumin 2.8 L (3.5-5.0) g/dL Urine Color Urine Appearance (Clear) Urine pH (5.0-8.0) Ur Specific [place] (1.001-1.035) Urine Protein (Negative) Urine Glucose (UA) (Negative) Urine Ketones (Negative) Urine Blood (Negative) Urine Nitrite (Negative) Urine Bilirubin (Negative) Urine Urobilinogen (<2.0) mg/dL Ur Leukocyte Esterase (Negative) Urine RBC (0-5) /hpf Urine WBC (0-5) /hpf Urine WBC Clumps (None) /hpf Ur Squamous Epith Cells (0-4) /hpf Amorphous Sediment (None) /hpf Urine Bacteria (None) /hpf Hyaline Casts (0-2) /lpf Granular Casts (0) /lpf Urine Mucus (None) /hpf 09/15/17 09/15/17 09/15/17 Range/Units 19:10 19:10 19:10 WBC (3.8-10.6) k/uL RBC (4.30-5.90) m/uL Hgb (13.0-17.5) gm/dL Hct (39.0-53.0) % MCV (80.0-100.0) fL MCH (25.0-35.0) pg MCHC (31.0-37.0) g/dL RDW (11.5-15.5) % Plt Count (150-450) k/uL Neutrophils % % Lymphocytes % % Monocytes % % Eosinophils % % Basophils % % Neutrophils # (1.3-7.7) k/uL Lymphocytes # (1.0-4.8) k/uL Monocytes # (0-1.0) k/uL Eosinophils # (0-0.7) k/uL Basophils # (0-0.2) k/uL Hypochromasia PT 11.5 (9.0-12.0) sec INR 1.2 H (<1.2) APTT 25.5 (22.0-30.0) sec Sodium (137-145) mmol/L Potassium (3.5-5.1) mmol/L Chloride (98-107) mmol/L Carbon Dioxide (22-30) mmol/L Anion Gap mmol/L BUN (9-20) mg/dL Creatinine (0.66-1.25) mg/dL Est GFR (CKD-EPI)AfAm (>60 ml/min/1.73 sqM) Est GFR (CKD-EPI)NonAf (>60 ml/min/1.73 sqM) Glucose (74-99) mg/dL Plasma Lactic Acid [place] 1.1 (0.7-2.0) mmol/L Calcium (8.4-10.2) mg/dL Total Bilirubin (0.2-1.3) mg/dL AST (17-59) U/L ALT (21-72) U/L Alkaline Phosphatase (38-126) U/L Total Creatine Kinase (55-170) U/L CK-MB (CK-2) (0.0-2.4) ng/mL CK-MB (CK-2) Rel Index Troponin I (0.000-0.034) ng/mL NT-Pro-B Natriuret Pep 7400 pg/mL Total Protein (6.3-8.2) g/dL Albumin (3.5-5.0) g/dL Urine Color Urine Appearance (Clear) Urine pH (5.0-8.0) Ur Specific [place] (1.001-1.035) Urine Protein (Negative) Urine Glucose (UA) (Negative) Urine Ketones (Negative) Urine Blood (Negative) Urine Nitrite (Negative) Urine Bilirubin (Negative) Urine Urobilinogen (<2.0) mg/dL Ur Leukocyte Esterase (Negative) Urine RBC (0-5) /hpf Urine WBC (0-5) /hpf Urine WBC Clumps (None) /hpf Ur Squamous Epith Cells (0-4) /hpf Amorphous Sediment (None) /hpf Urine Bacteria (None) /hpf Hyaline Casts (0-2) /lpf Granular Casts (0) /lpf Urine Mucus (None) /hpf 09/15/17 Range/Units 19:10 WBC (3.8-10.6) k/uL RBC (4.30-5.90) m/uL Hgb (13.0-17.5) gm/dL Hct (39.0-53.0) % MCV (80.0-100.0) fL MCH (25.0-35.0) pg MCHC (31.0-37.0) g/dL RDW (11.5-15.5) % Plt Count (150-450) k/uL Neutrophils % % Lymphocytes % % Monocytes % % Eosinophils % % Basophils % % Neutrophils # (1.3-7.7) k/uL Lymphocytes # (1.0-4.8) k/uL Monocytes # (0-1.0) k/uL Eosinophils # (0-0.7) k/uL Basophils # (0-0.2) k/uL Hypochromasia PT (9.0-12.0) sec INR (<1.2) APTT (22.0-30.0) sec Sodium (137-145) mmol/L Potassium (3.5-5.1) mmol/L Chloride (98-107) mmol/L Carbon Dioxide (22-30) mmol/L Anion Gap mmol/L BUN (9-20) mg/dL Creatinine (0.66-1.25) mg/dL Est GFR (CKD-EPI)AfAm (>60 ml/min/1.73 sqM) Est GFR (CKD-EPI)NonAf (>60 ml/min/1.73 sqM) Glucose (74-99) mg/dL Plasma Lactic Acid [place] (0.7-2.0) mmol/L Calcium (8.4-10.2) mg/dL Total Bilirubin (0.2-1.3) mg/dL AST (17-59) U/L ALT (21-72) U/L Alkaline Phosphatase (38-126) U/L Total Creatine Kinase (55-170) U/L CK-MB (CK-2) (0.0-2.4) ng/mL CK-MB (CK-2) Rel Index Troponin I (0.000-0.034) ng/mL NT-Pro-B Natriuret Pep pg/mL Total Protein (6.3-8.2) g/dL Albumin (3.5-5.0) g/dL Urine Color Yellow Urine Appearance Cloudy (Clear) Urine pH 5.5 (5.0-8.0) Ur Specific [place] 1.013 (1.001-1.035) Urine Protein 3+ H (Negative) Urine Glucose (UA) Negative (Negative) Urine Ketones Trace H (Negative) Urine Blood Trace H (Negative) Urine Nitrite Negative (Negative) Urine Bilirubin Negative (Negative) Urine Urobilinogen <2.0 (<2.0) mg/dL Ur Leukocyte Esterase Large H (Negative) Urine RBC 11 H (0-5) /hpf Urine WBC >182 H (0-5) /hpf Urine WBC Clumps Many H (None) /hpf Ur Squamous Epith Cells 1 (0-4) /hpf Amorphous Sediment Occasional H (None) /hpf Urine Bacteria Occasional H (None) /hpf Hyaline Casts 98 H (0-2) /lpf Granular Casts 17 (0) /lpf Urine Mucus Occasional H (None) /hpf Disposition Clinical Impression: Pulmonary edema, acute, Urinary tract infection Disposition: ADMITTED IP TO THIS HOSP Referrals: Janet Blackman MD [Primary Care Provider] - 1-2 days Time of Disposition: 20:36
[2017-09-15 19:21] LABS: Basophils % (A) 0 %; Eosinophils # (A) 0.2 k/uL (0-0.7); Eosinophils % (A) 3 %; HCT 29.9 % (39.0-53.0); HGB 9.4 gm/dL (13.0-17.5); Hypochromasia Slight; Lymphocytes # (A) 1.4 k/uL (1.0-4.8); Lymphocytes % (A) 17 %; MCH 27.8 pg (25.0-35.0); MCHC 31.3 g/dL (31.0-37.0); MCV 88.7 fL (80.0-100.0); Mean Platelet Volume 8.2; Monocytes # (A) 0.6 k/uL (0-1.0); Monocytes % (A) 7 %; Neutrophils # (A) 5.7 k/uL (1.3-7.7); Neutrophils % (A) 71 %; Platelet Count 189 k/uL (150-450); RBC 3.37 m/uL (4.30-5.90); RDW 15.5 % (11.5-15.5); WBC 8.1 k/uL (3.8-10.6)
[2017-09-15 19:29] LABS: INR 1.2 (<1.2); Partial Thromboplastin Time 25.5 sec (22.0-30.0); Prothrombin Time 11.5 sec (9.0-12.0)
[2017-09-15 19:35] LABS: Amorphous Sediment,Urine Occasional /hpf; Appearance,Urine Cloudy (Clear); Bacteria,Urine Occasional /hpf; Bilirubin,Urine Negative (Negative); Blood,Urine Trace (Negative); Color,Urine Yellow; Glucose,Urine (UA) Negative (Negative); Granular Casts,Urine 17 /lpf (0); Hyaline Casts,Urine 98 /lpf (0-2); Ketones,Urine Trace (Negative); Leukocyte Esterase,Urine Large (Negative); Mucus,Urine Occasional /hpf; Nitrite,Urine Negative (Negative); PH, Urine 5.5 (5.0-8.0); Protein,Urine 3+ (Negative); RBC,Urine 11 /hpf (0-5); Specific Gravity,Urine 1.013 (1.001-1.035); Squamous Epithelial Cell,Urine 1 /hpf (0-4); Urobilinogen,Urine <2.0 mg/dL (<2.0); WBC,Urine >182 /hpf (0-5)
[2017-09-15 19:37] LABS: Albumin 2.8 g/dL (3.5-5.0); Potassium 4.8 mmol/L (3.5-5.1); Total Bilirubin 0.5 mg/dL (0.2-1.3); Total Protein 6.7 g/dL (6.3-8.2)
[2017-09-15 19:48] LABS: Creatine Kinase MB 2.1 ng/mL (0.0-2.4); Troponin I 0.015 ng/mL (0.000-0.034)
[2017-09-15] MEDS ORDERED: cefTRIAXone 2,000 MG in SODIUM CHLORIDE 0.9% 100 ML IVPB STA ×2 (20:22→20:37)
[2017-09-15] MEDS ORDERED: FUROSEMIDE 10 MG/ML 4 ML VIAL IV STA (20:28)
--- NOTE | 2017-09-15 20:34 | XR ---
EXAMINATION TYPE: XR chest 2V DATE OF EXAM: 09/15/2017 COMPARISON: Yesterday HISTORY: Fever TECHNIQUE: Frontal and lateral views of the chest are obtained. FINDINGS: Heart appears enlarged. There is pulmonary vascular congestion. There is blunting of costo phrenic angles and more on the right side. There are sternal wires. IMPRESSION: Congestive heart failure with pleural effusions. This appears the same or worse than yes terday.
[2017-09-15] MEDS: cefTRIAXone IN SWFI 2,000 MG/20 ML SYRINGE IVP ONE ×2 (20:37→21:02)
[2017-09-15] MEDS ORDERED: cefTRIAXone IN SWFI 2,000 MG/20 ML SYRINGE IVP ONE (20:45)
[2017-09-15] MEDS: FUROSEMIDE 10 MG/ML 4 ML VIAL IV SCH (20:53)
[2017-09-15] MEDS: ENALAPRILAT 1.25 MG/ML 1 ML VIAL IVP SCH (21:00)
[2017-09-15] MEDS: NITROGLYCERIN OINT 1 INCH/GM PACKET TOPICAL SCH (23:07)
[2017-09-16] MEDS: ENALAPRILAT 1.25 MG/ML 1 ML VIAL IVP SCH ×2 (03:24→10:07)
[2017-09-16] MEDS: FUROSEMIDE 10 MG/ML 4 ML VIAL IV SCH ×3 (04:56→20:50)
[2017-09-16 06:14] LABS: Glucose,Whole Blood 124 mg/dL (75-99)
[2017-09-16] MEDS ORDERED: cefTRIAXone IN SWFI 1,000 MG/10 ML SYRINGE IVP SCH (09:00)
[2017-09-16] MEDS ORDERED: NITROGLYCERIN SL TABS 0.4 MG TAB SUBLINGUAL PRN (09:28)
[2017-09-16] MEDS ORDERED: ALBUTEROL NEBULIZED 2.5 MG/3 ML INHALATION PRN (09:28)
[2017-09-16] MEDS ORDERED: IPRATROPIUM-ALBUTEROL 3 ML NEB INHALATION PRN (09:28)
[2017-09-16] MEDS ORDERED: LEVOFLOXACIN 750MG-D5W PMX 750 MG in DEXTROSE/WATER 1 150ML.BAG IVPB SCH (09:45)
[2017-09-16] MEDS: NITROGLYCERIN OINT 1 INCH/GM PACKET TOPICAL SCH (10:07)
--- NOTE | 2017-09-16 10:31 | XR ---
EXAMINATION TYPE: XR chest 1V portable DATE OF EXAM: 09/16/2017 COMPARISON: 09/15/2017 INDICATION: CHF TECHNIQUE: Single frontal view of the chest is obtained. FINDINGS: The heart size is enlarged. The pulmonary vasculature is prominent. There is diffuse increased lung markings. Small right pleural effusion is present. Minimal left pleur al effusion is present. There is slight improvement from prior study. IMPRESSION: 1. Slight improvement of congestive heart failure. Continued follow-up is recommended.
--- NOTE | 2017-09-16 10:43 | P.CNPUL ---
History of Present Illness Consult date: 09/16/17 Requesting physician: Boom Olguin Reason for consult: dyspnea, abnormal CXR/CT Chief complaint: Generalized weakness. Hypoxemia. Altered mental status. History of present illness: This is a 71-year-old gentleman who follows with Dr. Lucas Gallo as his primary care physician. He has multiple chronic medical issues including coronary artery disease with previous coronary artery bypass grafting, atrial fibrillation, diastolic congestive heart failure with preserved left ventricular systolic function and ejection fraction of 50-55%, chronic obstructive pulmonary disease and is a former smoker and is now oxygen dependent , obstructive sleep apnea noncompliant with CPAP, diabetes mellitus, alcoholism , hypertension, hyperlipidemia, osteoarthritis, seizure disorder, prostate disorder, previous suprapubic catheter and multiple he was recently here and discharge in August 2017 for streptococcal pneumonia septicemia. This is his third admission this month. He was brought in again yesterday from the [facility] as he was noted to have altered mental status, oxygen saturations in the 80s, weakness. The patient himself is a very poor historian. Most information is taken from the chart and previous history. His chest x-ray reveals evidence of congestive heart failure and bilateral pleural effusions. ProBNP 7400. Creatinine 2.54. White count 8.1. Hemoglobin 9.4. Urinalysis is pending. He is currently maintaining O2 saturations in the 90s on 5 L/m per nasal cannula. He's been afebrile. Hemodynamically stable. He has been initiated on antibiotics in the form of Zosyn and Levaquin. Review of Systems ROS unobtainable: due to mental status Past Medical History Past Medical History: Atrial Fibrillation, Coronary Artery Disease (CAD), Heart Failure, COPD, Diabetes Mellitus, GERD/Reflux, Hyperlipidemia, Hypertension, Myocardial Infarction (PA), Musculoskeletal Disorder, Osteoarthritis (OA), Pneumonia, Prostate Disorder, Seizure Disorder, Sleep Apnea/CPAP/BIPAP Additional Past Medical History / Comment(s): Pt recently admitted [facility] 08/11/17 with metabolic encephalopathy with sepsis secondary to aspiration pneumonia/UTI and suspected Streptococcus pneumoniae bacteremia. Other HX: Nonsustained Vtach, pneumonias, severe GERD, TIA, Armas's Palsey, turinaty retention, phimosis , bilateral hydronephrosis, funez caths, suprapubic cath in past, chronic UTI'S , CATARACTS bilaterally, GOUT,DOES'NT USE CPAP KIDNEY STONE, BULGING DISCS, O2 3l nc most of the time, PA 11/2013 and seizures with the PA BPH, chronic low back pain, protein calorie malnutrition. 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 Past Anesthesia/Blood Transfusion Reactions: No Reported Reaction Past Psychological History: Depression Additional Psychological History / Comment(s): Pt currently lives at [facility]. He pretty much is in bed or wheelchair. Smoking Status: Current every day smoker Past Alcohol Use History: None Reported Additional Past Alcohol Use History / Comment(s): STARTED SMOKING AT AGE 19 QUIT 2012 (3PPD FOR 10 YEARS THEN DECREASED TO 2 PPD UNTIL HE QUIT). SON STATES HE RESUMED SMOKING ABOUT 6-8 MONTHS AGO. 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 , Past Drug Use History: None Reported - Past Family History Father Family Medical History: Cancer, Dementia, Hyperlipidemia, Hypertension, Myocardial Infarction (PA) Additional Family Medical History / Comment(s): AT AGE 78- Mother Family Medical History: No Reported History, Coronary Artery Disease (CAD), Dementia, Myocardial Infarction (PA) Additional Family Medical History / Comment(s): AT AGE 86 Brother(s) Family Medical History: No Reported History Sister(s) Family Medical History: No Reported History, Rheumatoid Arthritis (RA) Son(s) Family Medical History: No Reported History Daughter(s) Family Medical History: No Reported History Medications and Allergies Home Medications Medication Instructions Recorded Confirmed Type Isosorbide Mononitrate ER [Imdur] 30 mg PO DAILY 04/26/14 09/15/17 History levETIRAcetam [Keppra] 750 mg PO BID 04/26/14 09/15/17 History Atorvastatin [Lipitor] 40 mg PO HS 06/14/14 09/15/17 History Omeprazole [PriLOSEC] 20 mg PO BID 04/18/16 09/15/17 History Potassium Chloride ER [K-Dur 20] 20 meq PO HS 05/05/16 09/15/17 History Montelukast [Singulair] 10 mg PO HS 06/16/16 09/15/17 History Albuterol Inhaler [Ventolin Hfa 2 puff INHALATION RT-Q6H PRN 08/11/17 09/15/17 History Inhaler] Budesonide [Pulmicort] 0.5 mg INHALATION RT-BID 08/11/17 09/15/17 History Ipratropium-Albuterol Nebulize 3 ml INHALATION RT-QID@08,12,,08/11/1709/15 History [Duoneb 0.5 mg-3 mg/3 ml Soln] Nitroglycerin Sl Tabs [Nitrostat] 0.4 mg SUBLINGUAL Q5M PRN 08/11/17 09/15/17 History PARoxetine [Paxil] 10 mg PO DAILY tab 08/26/17 09/15/17 Rx Sodium Bicarbonate Tab 650 mg PO BID tab 08/26/17 09/15/17 Rx Insulin Aspart [NovoLOG See Protocol SQ ACHS 08/31/17 09/15/17 History (formulary)] Lisinopril [Zestril] 5 mg PO DAILY 08/31/17 09/15/17 History Metoprolol Tartrate [Lopressor] 12.5 mg PO BID 08/31/17 09/15/17 History Multivitamins, Thera [Multivitamin 1 tab PO HS 08/31/17 09/15/17 History (formulary)] Prostat Sugar Free 30 ml PO BID 08/31/17 09/15/17 History hydrALAZINE HCL [Apresoline] 100 mg PO TID@08,12,16 08/31/17 09/15/17 History Formoterol Fumarate [Perforomist] 20 mcg INHALATION RT-BID nebu 09/02/17 Rx Moxifloxacin HCl [Avelox] 400 mg PO DAILY #10 tablet 09/02/17 09/15/17 Rx amLODIPine [Norvasc] 5 mg PO BID #0 tab 09/02/17 09/15/17 Rx Clotrimazole/Betamethasone Dip 1 applic TOPICAL BID 09/14/17 09/15/17 History [Lotrisone Cream] Furosemide [Lasix] 80 mg PO BID 09/14/17 09/15/17 History Furosemide [Lasix] 80 mg PO Q8HR #10 tablet 09/14/17 09/15/17 Rx HYDROcodone/APAP 5-325MG [[place] 1 tab PO Q8H PRN 09/14/17 09/15/17 History 5-325] Ipratropium-Albuterol Nebulize 3 ml INHALATION RT-Q6H PRN 09/14/17 09/15/17 History [Duoneb 0.5 mg-3 mg/3 ml Soln] Tamsulosin [Flomax] 0.4 mg PO BID 09/14/17 09/15/17 History Allergies Allergy/AdvReac Type Severity Reaction Status Date / Time adhesive AdvReac Unknown Verified 09/15/17 19:34 influenza virus vaccine, AdvReac Nausea & Verified 09/15/17 19:34 specific Vomiting & [Influenza Virus Diarrhea Vacc,Specific] Physical Exam Vitals: Vital Signs Temp Pulse Pulse Resp BP BP BP 09/16/17 03:42 97.1 F L 53 L 22 133/66 09/16/17 00:00 97 F L 69 24 137/77 09/15/17 21:35 65 20 138/92 09/15/17 20:43 68 20 154/69 09/15/17 19:50 73 09/15/17 19:38 64 09/15/17 19:03 100.2 F H 67 20 160/68 Pulse Ox 09/16/17 03:42 96 09/16/17 00:00 94 L 09/15/17 21:35 94 L 09/15/17 20:43 94 L 09/15/17 19:50 09/15/17 19:38 09/15/17 19:03 89 L Intake and Output 09/15/17 09/16/17 09/16/17 22:59 06:59 14:59 Intake Total 50 90 Output Total 325 275 Balance -275 -185 Intake: Oral 50 90 Output: Urine 325 275 Uretheral (Funez) 325 Other: Voiding Method Indwelling Catheter Weight 70.942 kg 67 kg GENERAL EXAM: Frail, cachectic, comfortable in no apparent distress. HEAD: Normocephalic. EYES: Normal reaction of pupils, equal size. NOSE: Clear with pink turbinates. THROAT: No erythema or exudates. NECK: No masses, positive JVD. CHEST: No chest wall deformity. LUNGS: Equal air entry with echoes in the bilateral posterior bases. Rhonchi scattered. CVS: S1 and S2 normal with an audible murmur, irregular rhythm. ABDOMEN: No hepatosplenomegaly, normal bowel sounds, no guarding or rigidity. SPINE: Kyphoscoliosis SKIN: Ecchymosis. CENTRAL NERVOUS SYSTEM: No focal deficits, tone is normal in all 4 extremities. EXTREMITIES: There is no peripheral edema. No clubbing, no cyanosis. Peripheral pulses are intact. Results - Laboratory Findings CBC and BMP: 09/15/17 19:10 09/15/17 19:10 PT/INR, D-dimer PT 11.5 sec (9.0-12.0) 09/15/17 19:10 INR 1.2 (<1.2) H 09/15/17 19:10 Abnormal lab findings: Abnormal Labs 09/15/17 09/15/17 09/15/17 19:10 19:10 19:10 RBC 3.37 L Hgb 9.4 L Hct 29.9 L INR Sodium 146 H BUN 41 H Creatinine 2.54 H Glucose 106 H POC Glucose (mg/dL) Calcium 8.0 L Total Creatine Kinase 50 L Albumin 2.8 L Urine Protein Urine Ketones Urine Blood Ur Leukocyte Esterase Urine RBC Urine WBC Urine WBC Clumps Amorphous Sediment Urine Bacteria Hyaline Casts Urine Mucus 09/15/17 09/15/17 09/16/17 19:10 19:10 06:12 RBC Hgb Hct INR 1.2 H Sodium BUN Creatinine Glucose POC Glucose (mg/dL) 124 H Calcium Total Creatine Kinase Albumin Urine Protein 3+ H Urine Ketones Trace H Urine Blood Trace H Ur Leukocyte Esterase Large H Urine RBC 11 H Urine WBC >182 H Urine WBC Clumps Many H Amorphous Sediment Occasional H Urine Bacteria Occasional H Hyaline Casts 98 H Urine Mucus Occasional H - Diagnostic Findings Chest x-ray: image reviewed Assessment and Plan Assessment: Impression: #1 Altered mental status secondary to suspected urinary tract infection. #2 Recent discharge for recurrent metabolic encephalopathy and sepsis. #3 Acute on chronic hypoxic respiratory failure secondary to bilateral pleural effusions associated with bibasilar atelectasis/infiltrate. Most likely secondary to acute exacerbation of diastolic congestive heart failure. #4 Acute on chronic renal failure. #5 Anemia of chronic disease. #6 Cachexia with protein calorie malnutrition. #7 History of oxygen dependent chronic obstructive pulmonary disease with chronic tobacco dependence. #8 History of obstructive sleep apnea and not utilizing CPAP in the outpatient setting. #9 Coronary artery disease with previous coronary artery bypass grafting. #10 Atrial fibrillation not on anticoagulants in the outpatient setting. #11 Recent hospitalization for metabolic encephalopathy, sepsis secondary to Streptococcus pneumoniae bacteremia. Required intubation and mechanical ventilatory support. #12 Diabetes mellitus. #13 History of alcoholism. #14 History of hypertension. #15 Hyperlipidemia. #16 Osteoarthritis. #17 Seizure disorder. #18 History of prostate disorder. #19 History of supra pubic catheter. #20 Poor overall functional performance based on the above-mentioned multiple comorbidities. Plan: The patient was seen and evaluated by Dr. Baron. Chest x-ray and labs were reviewed. We'll go ahead and treat the patient for suspected acute exacerbation of diastolic congestive heart failure. The patient has multiple comorbidities and overall prognosis remains quite guarded and poor. CODE STATUS definitely needs to be addressed. In the interim, we'll continue full supportive care. Continue with bronchodilators, Pulmicort and Perforomist inhalations, antibiotics in the form of Zosyn and Levaquin. Continue diuretics. Follow-up chest x-ray shows improvement. Titrate down the FiO2 and maintaining O2 saturations greater than 90%. We'll continue to follow and make further recommendations based on his clinical status. I, the cosigning physician, performed a history & physical examination of the patient. Lungs sounds with crackles in the bilateral posterior bases. Diminished. Maintaining good O2 saturations in the 90s on 5 liters per minute per nasal cannula.. I discussed the assessment and plan of care with my nurse practitioner, Shruti Thrasher. I attest to the above consultation as dictated by her. Time with Patient: Greater than 30
--- NOTE | 2017-09-16 11:46 | P.HPIM ---
History of Present Illness H&P Date: 09/16/17 This is a 71-year-old male one of Dr. Lucas Gallo's patient with past medical history of hypertension, hyperlipidemia, diabetes, COPD, chronic systolic and possible diastolic heart failure, alcoholism, coronary artery disease and underwent CABG 2015 ended up having multiple complications and the multiple rehospitalization for worsening shortness of breath, A. fib and other complication. He has had several admissions over the past 2 months for recurrent metabolic encephalopathy with sepsis of possible aspiration pneumonia and urinary tract infection. He has been followed by Dr. Nicholas, Dr. Louis. Thought changes were possibly related to narcotic use. On recent admission in July patient did require intubation. He is currently residing at [facility] on the care of Dr. Blackman and most recent discharge was on September 05. Patient was brought in by EMS on September 14 to the emergency center due to mental status changes. Patient was treated with increased Lasix and return to the snf for CHF exacerbation. His vital signs were stable at that time , BUN 36 creatinine 2.08, normal white count. Troponin was negative. Patient return to [facility] emergency center on September 15 due to pulse ox of 80s, generalized weakness and decreased level of consciousness. Patient barely was placed on oxygen by EMS and became much more alert. Temperature max is 100.2, vital signs were otherwise stable. Initial pulse ox was 89%. EKG was atrial fibrillation controlled rate with T-wave inversion in the inferior leads. Patient was admitted to the selective care unit and consult placed with cardiology and pulmonary medicine. Patient's mentation appears to be back to his baseline. Review of Systems All systems: negative Constitutional: Reports fatigue, Reports poor appetite, Denies chills, Denies fever Eyes: denies blurred vision, denies pain Ears, nose, mouth and throat: Denies headache, Denies sore throat Cardiovascular: Reports shortness of breath, Denies chest pain, Denies leg edema Respiratory: Reports dyspnea, Reports home oxygen, Denies cough Gastrointestinal: Denies abdominal pain, Denies diarrhea, Denies nausea, Denies vomiting Genitourinary: Denies dysuria Musculoskeletal: Reports gait dysfunction, Denies myalgias Integumentary: Denies pruritus, Denies rash Neurological: Denies numbness, Denies weakness Psychiatric: Denies anxiety, Denies depression Endocrine: Denies fatigue, Denies weight change Past Medical History Past Medical History: Atrial Fibrillation, Coronary Artery Disease (CAD), Heart Failure, COPD, Diabetes Mellitus, GERD/Reflux, Hyperlipidemia, Hypertension, Myocardial Infarction ([place]), Musculoskeletal Disorder, Osteoarthritis (OA), Pneumonia, Prostate Disorder, Seizure Disorder, Sleep Apnea/CPAP/BIPAP Additional Past Medical History / Comment(s): Pt recently admitted [facility] 08/11/17 with metabolic encephalopathy with sepsis secondary to aspiration pneumonia/UTI and suspected Streptococcus pneumoniae bacteremia. Other HX: Nonsustained Vtach, pneumonias, severe GERD, TIA, Armas's Palsey, turinaty retention, phimosis , bilateral hydronephrosis, funez caths, suprapubic cath in past, chronic UTI'S , CATARACTS bilaterally, GOUT,DOES'NT USE CPAP KIDNEY STONE, BULGING DISCS, O2 3l nc most of the time, [place] 11/2013 and seizures with the [place] BPH, chronic low back pain, protein calorie malnutrition. 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 Past Anesthesia/Blood Transfusion Reactions: No Reported Reaction Past Psychological History: Depression Additional Psychological History / Comment(s): Pt currently lives at [facility]. He pretty much is in bed or wheelchair. Smoking Status: Current every day smoker Past Alcohol Use History: None Reported Additional Past Alcohol Use History / Comment(s): STARTED SMOKING AT AGE 19 QUIT 2012 (3PPD FOR 10 YEARS THEN DECREASED TO 2 PPD UNTIL HE QUIT). SON STATES HE RESUMED SMOKING ABOUT 6-8 MONTHS AGO. 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 , Past Drug Use History: None Reported - Past Family History Father Family Medical History: Cancer, Dementia, Hyperlipidemia, Hypertension, Myocardial Infarction ([place]) Additional Family Medical History / Comment(s): AT AGE 78- Mother Family Medical History: No Reported History, Coronary Artery Disease (CAD), Dementia, Myocardial Infarction ([place]) Additional Family Medical History / Comment(s): AT AGE 86 Brother(s) Family Medical History: No Reported History Sister(s) Family Medical History: No Reported History, Rheumatoid Arthritis (RA) Son(s) Family Medical History: No Reported History Daughter(s) Family Medical History: No Reported History Medications and Allergies Home Medications Medication Instructions Recorded Confirmed Type Isosorbide Mononitrate ER [Imdur] 30 mg PO DAILY 04/26/14 09/15/17 History levETIRAcetam [Keppra] 750 mg PO BID 04/26/14 09/15/17 History Atorvastatin [Lipitor] 40 mg PO HS 06/14/14 09/15/17 History Omeprazole [PriLOSEC] 20 mg PO BID 04/18/16 09/15/17 History Potassium Chloride ER [K-Dur 20] 20 meq PO HS 05/05/16 09/15/17 History Montelukast [Singulair] 10 mg PO HS 06/16/16 09/15/17 History Albuterol Inhaler [Ventolin Hfa 2 puff INHALATION RT-Q6H PRN 08/11/17 09/15/17 History Inhaler] Budesonide [Pulmicort] 0.5 mg INHALATION RT-BID 08/11/17 09/15/17 History Ipratropium-Albuterol Nebulize 3 ml INHALATION RT-QID@08,12,16,20 08/11/1709/15 History [Duoneb 0.5 mg-3 mg/3 ml Soln] Nitroglycerin Sl Tabs [Nitrostat] 0.4 mg SUBLINGUAL Q5M PRN 08/11/17 09/15/17 History PARoxetine [Paxil] 10 mg PO DAILY tab 08/26/17 09/15/17 Rx Sodium Bicarbonate Tab 650 mg PO BID tab 08/26/17 09/15/17 Rx Insulin Aspart [NovoLOG See Protocol SQ ACHS 08/31/17 09/15/17 History (formulary)] Lisinopril [Zestril] 5 mg PO DAILY 08/31/17 09/15/17 History Metoprolol Tartrate [Lopressor] 12.5 mg PO BID 08/31/17 09/15/17 History Multivitamins, Thera [Multivitamin 1 tab PO HS 08/31/17 09/15/17 History (formulary)] Prostat Sugar Free 30 ml PO BID 08/31/17 09/15/17 History hydrALAZINE HCL [Apresoline] 100 mg PO TID@08,12,16 08/31/17 09/15/17 History Formoterol Fumarate [Perforomist] 20 mcg INHALATION RT-BID nebu 09/02/17 Rx Moxifloxacin HCl [Avelox] 400 mg PO DAILY #10 tablet 09/02/17 09/15/17 Rx amLODIPine [Norvasc] 5 mg PO BID #0 tab 09/02/17 09/15/17 Rx Clotrimazole/Betamethasone Dip 1 applic TOPICAL BID 09/14/17 09/15/17 History [Lotrisone Cream] Furosemide [Lasix] 80 mg PO BID 09/14/17 09/15/17 History Furosemide [Lasix] 80 mg PO Q8HR #10 tablet 09/14/17 09/15/17 Rx HYDROcodone/APAP 5-325MG [[place] 1 tab PO Q8H PRN 09/14/17 09/15/17 History 5-325] Ipratropium-Albuterol Nebulize 3 ml INHALATION RT-Q6H PRN 09/14/17 09/15/17 History [Duoneb 0.5 mg-3 mg/3 ml Soln] Tamsulosin [Flomax] 0.4 mg PO BID 09/14/17 09/15/17 History Allergies Allergy/AdvReac Type Severity Reaction Status Date / Time adhesive AdvReac Unknown Verified 09/15/17 19:34 influenza virus vaccine, AdvReac Nausea & Verified 09/15/17 19:34 specific Vomiting & [Influenza Virus Diarrhea Vacc,Specific] Physical Exam Vitals: Vital Signs Temp Pulse Pulse Resp BP BP BP 09/16/17 03:42 97.1 F L 53 L 22 133/66 09/16/17 00:00 97 F L 69 24 137/77 09/15/17 21:35 65 20 138/92 09/15/17 20:43 68 20 154/69 09/15/17 19:50 73 09/15/17 19:38 64 09/15/17 19:03 100.2 F H 67 20 160/68 Pulse Ox 09/16/17 03:42 96 09/16/17 00:00 94 L 09/15/17 21:35 94 L 09/15/17 20:43 94 L 09/15/17 19:50 09/15/17 19:38 09/15/17 19:03 89 L Intake and Output 09/15/17 09/16/17 09/16/17 22:59 06:59 14:59 Intake Total 50 90 Output Total 325 Balance -275 90 Intake: Oral 50 90 Output: Urine 325 Uretheral (Funez) 325 Other: Voiding Method Indwelling Catheter Weight 70.942 kg 67 kg General appearance: average body habitus, no acute distress - EENT Eyes: EOMI, PERRLA, dentition normal - Neck Neck: normal ROM - Respiratory Respiratory: bilateral: CTA, diminished, negative: dullness, rales, rhonchi - Cardiovascular Rhythm: regular Heart sounds: normal: S1, S2 Abnormal Heart Sounds: systolic murmur, no diastolic murmur, no rub, no S3 Gallop, no S4 Gallop, no click, no other - Gastrointestinal General gastrointestinal: normal bowel sounds, soft - Integumentary Integumentary: decreased turgor, normal - Neurologic Neurologic: CNII-XII intact - Musculoskeletal Musculoskeletal: gait normal, strength equal bilaterally - Psychiatric Psychiatric: A&O x's 3, intact judgment & insight Results CBC & Chem 7: 09/15/17 19:10 09/15/17 19:10 Labs: Abnormal Lab Results - Last 24 Hours (Table) 09/15/17 09/15/17 09/15/17 Range/Units 19:10 19:10 19:10 RBC 3.37 L (4.30-5.90) m/uL Hgb 9.4 L (13.0-17.5) gm/dL Hct 29.9 L (39.0-53.0) % INR (<1.2) Sodium 146 H (137-145) mmol/L BUN 41 H (9-20) mg/dL Creatinine 2.54 H (0.66-1.25) mg/dL Glucose 106 H (74-99) mg/dL POC Glucose (mg/dL) (75-99) mg/dL Calcium 8.0 L (8.4-10.2) mg/dL Total Creatine Kinase 50 L (55-170) U/L Albumin 2.8 L (3.5-5.0) g/dL Urine Protein (Negative) Urine Ketones (Negative) Urine Blood (Negative) Ur Leukocyte Esterase (Negative) Urine RBC (0-5) /hpf Urine WBC (0-5) /hpf Urine WBC Clumps (None) /hpf Amorphous Sediment (None) /hpf Urine Bacteria (None) /hpf Hyaline Casts (0-2) /lpf Urine Mucus (None) /hpf 09/15/17 09/15/17 09/16/17 Range/Units 19:10 19:10 06:12 RBC (4.30-5.90) m/uL Hgb (13.0-17.5) gm/dL Hct (39.0-53.0) % INR 1.2 H (<1.2) Sodium (137-145) mmol/L BUN (9-20) mg/dL Creatinine (0.66-1.25) mg/dL Glucose (74-99) mg/dL POC Glucose (mg/dL) 124 H (75-99) mg/dL Calcium (8.4-10.2) mg/dL Total Creatine Kinase (55-170) U/L Albumin (3.5-5.0) g/dL Urine Protein 3+ H (Negative) Urine Ketones Trace H (Negative) Urine Blood Trace H (Negative) Ur Leukocyte Esterase Large H (Negative) Urine RBC 11 H (0-5) /hpf Urine WBC >182 H (0-5) /hpf Urine WBC Clumps Many H (None) /hpf Amorphous Sediment Occasional H (None) /hpf Urine Bacteria Occasional H (None) /hpf Hyaline Casts 98 H (0-2) /lpf Urine Mucus Occasional H (None) /hpf Microbiology - Last 24 Hours (Table) 09/15/17 19:10 Urine Culture - Preliminary Urine,Catheterized Thrombosis Risk Factor Assmnt - DVT/VTE Prophylaxis DVT/VTE Prophylaxis: Pharmacologic Prophylaxis ordered - Choose All That Apply Any of the Below Risk Factors Present?: Yes Each Factor Represents 1 point: Heart failure (<1month), Serious lung disease incl. pneumonia (< 1month) Other Risk Factors: Yes Each Risk Factor Represents 2 Points: Age 61-74 years Other congenital or acquired thrombophilia - If yes, enter type in comment: No Thrombosis Risk Factor Assessment Total Risk Factor Score: 4 Thrombosis Risk Factor Assessment Level: Moderate Risk Assessment and Plan Plan: 1. Acute hypoxic respiratory failure with previous history of mechanical ventilation July and area to pulmonary edema. Continue with aggressive pulmonary toileting, monitor the patient very closely. O2 by cannula. Consult with Dr. Baron for possible aspiration. H therapy evaluation. 2. Hypoxia encephalopathy most likely secondary to low pulse ox. Patient's mentation improved with oxygen therapy. Continue as in #1. 3. Flash pulmonary edema with acute on chronic systolic heart failure with possible diastolic heart failure secondary to coronary artery disease and angina. Patient recently had Lasix increased after his ER visit. Continue Lasix 40 mg IV every 8 hours. Continue Lopressor 12.5 mg twice daily. 4.. CKD stage III with recent acute failure secondary to ATN secondary to sepsis. Monitor for renal decompensation . Continue sodium bicarb 650 mg twice daily. 5. Arrhythmia history with prior Nonsustained ventricular tachycardia on 2015 H and was seen by cardiology echocardiogramJuly 2016 showed atrial fibrillation with small pericardial effusion noted ejection fraction 45-50% inferolateral hypokinesis with palpation of LA size over 40. 6. History bilateral hydronephrosis mild, improved from last ultrasound history Phimosis with urinary retention resolved monitor for urinary retention continue tamsulosin 7. CAD post CABG. continue aspirin 81 mg orally once every day, Lipitor 40 mg daily, Lopressor. 8. Diabetes mellitus type II: Continue with NovoLog sliding scale. Patient has been off scheduled insulin due to hypoglycemia. 9. Hypertensive cardiovascular disease. Continue amlodipine 5 mg twice daily, hydralazine 100 mg 3 times daily, lisinopril 5 mg daily, lopressor 12.5 mg twice daily. 10. Hyperlipidemia: Continue statin. 11. Chronic A. fib. Patient is no longer on Coumadin. This may be related to risk of falls. 12. Recurrent depression: Continue Paxil. 13. Seizure history: Has been on Keppra 750 g twice a day with no new seizure activity. 14. Urinary retention with BPH: Patient has chronic Funez catheter. Continue Flomax. 15. Severe GERD: Will add Protonix 40 mg daily 16. Severe protein calorie malnutrition due to lack of oral intake. Protein supplement. 17. Chronic low back pain. 18. DVT prophylaxis. Heparin subcu. Patient will be admitted to hospital for a minimum of 2 night stay.. Discharge plan: Return to [facility] on Tuesday. Social work is following. Impression and plan of care have been directed as dictated by the signing physician. Carly Greene nurse practitioner acting as scribe for signing physician.
[2017-09-16 11:50] LABS: Glucose,Whole Blood 151 mg/dL (75-99)
[2017-09-16] MEDS: IPRATROPIUM-ALBUTEROL 3 ML NEB INHALATION SCH ×3 (11:57→19:16)
[2017-09-16] MEDS: hydrALAZINE HCL 50 MG TAB PO SCH ×2 (12:13→15:47)
[2017-09-16] MEDS: ISOSORBIDE MONONITRATE ER 30 MG TAB.ER.24H PO SCH (12:14)
[2017-09-16] MEDS: PIPERACILLIN-TAZOBACTAM 3.375 GM in DEXTROSE/WATER 1 50ML.BAG IVPB SCH ×2 (12:14→18:12)
[2017-09-16 13:05] LABS: Hemoglobin A1C 7.1 % (4.0-6.0)
[2017-09-16] MEDS: HEPARIN SODIUM,PORCINE 5,000 UNIT/ML 1 ML VIAL SQ SCH (15:47)
[2017-09-16 15:54] LABS: INR 1.3 (<1.2); Prothrombin Time 12.4 sec (9.0-12.0)
[2017-09-16 16:37] LABS: Glucose,Whole Blood 199 mg/dL (75-99)
[2017-09-16] MEDS: BUDESONIDE 0.5 MG/2 ML NEBU INHALATION SCH (19:16)
[2017-09-16] MEDS: FORMOTEROL FUMARATE 20 MCG/2 ML NEBU INHALATION SCH (19:16)
[2017-09-16] MEDS: CLOTRIMAZOLE/BETAMETH 1-0.05% CREAM 45 GM TUBE TOPICAL SCH (20:50)
[2017-09-16] MEDS: amLODIPine 5 MG TAB PO SCH (20:50)
[2017-09-16] MEDS: MULTIVITAMINS, THERA 1 EACH TAB PO SCH (20:51)
[2017-09-16] MEDS: MONTELUKAST 10 MG TAB PO SCH (20:51)
[2017-09-16] MEDS: METOPROLOL TARTRATE 12.5 MG TAB PO SCH (20:51)
[2017-09-16] MEDS: TAMSULOSIN 0.4 MG CAP.ER.24H PO SCH (20:51)
[2017-09-16] MEDS: POTASSIUM CHLORIDE ER 20 MEQ TAB.ER PO SCH (20:51)
[2017-09-16] MEDS: SODIUM BICARBONATE TAB 650 MG TAB PO SCH (20:51)
[2017-09-16] MEDS ORDERED: ATORVASTATIN 40 MG TAB PO SCH (21:00)
[2017-09-16 21:11] LABS: Glucose,Whole Blood 157 mg/dL (75-99)
[2017-09-17] MEDS: HEPARIN SODIUM,PORCINE 5,000 UNIT/ML 1 ML VIAL SQ SCH ×3 (00:05→16:53)
[2017-09-17] MEDS: PIPERACILLIN-TAZOBACTAM 3.375 GM in DEXTROSE/WATER 1 50ML.BAG IVPB SCH ×2 (02:53→12:32)
[2017-09-17] MEDS: FUROSEMIDE 10 MG/ML 4 ML VIAL IV SCH ×3 (04:48→20:23)
[2017-09-17 06:11] LABS: Glucose,Whole Blood 147 mg/dL (75-99)
[2017-09-17] MEDS: PANTOPRAZOLE 40 MG TABLET PO SCH (06:41)
[2017-09-17 06:46] LABS: HCT 28.1 % (39.0-53.0); Hypochromasia Slight; MCHC 31.9 g/dL (31.0-37.0); MCV 87.8 fL (80.0-100.0); Mean Platelet Volume 7.4; Platelet Count 193 k/uL (150-450); RDW 15.6 % (11.5-15.5); WBC 8.8 k/uL (3.8-10.6)
[2017-09-17 06:55] LABS: Calcium 7.8 mg/dL (8.4-10.2); Potassium 4.1 mmol/L (3.5-5.1)
[2017-09-17] MEDS: BUDESONIDE 0.5 MG/2 ML NEBU INHALATION SCH ×2 (08:28→20:36)
[2017-09-17] MEDS: FORMOTEROL FUMARATE 20 MCG/2 ML NEBU INHALATION SCH ×2 (08:28→20:36)
[2017-09-17] MEDS: IPRATROPIUM-ALBUTEROL 3 ML NEB INHALATION SCH ×4 (08:28→20:36)
[2017-09-17] MEDS ORDERED: VANCOMYCIN 1,250 MG in SODIUM CHLORIDE 0.9% 250 ML IVPB ONE (09:00)
[2017-09-17] MEDS: SODIUM BICARBONATE TAB 650 MG TAB PO SCH ×2 (09:10→20:23)
[2017-09-17] MEDS: LISINOPRIL 5 MG TAB PO SCH (09:10)
[2017-09-17] MEDS: METOPROLOL TARTRATE 12.5 MG TAB PO SCH ×2 (09:10→20:23)
[2017-09-17] MEDS: TAMSULOSIN 0.4 MG CAP.ER.24H PO SCH ×2 (09:10→20:23)
[2017-09-17] MEDS: PARoxetine 10 MG TAB PO SCH (09:10)
[2017-09-17] MEDS: hydrALAZINE HCL 50 MG TAB PO SCH ×3 (09:11→16:53)
[2017-09-17] MEDS: ISOSORBIDE MONONITRATE ER 30 MG TAB.ER.24H PO SCH (09:11)
[2017-09-17] MEDS: CLOTRIMAZOLE/BETAMETH 1-0.05% CREAM 45 GM TUBE TOPICAL SCH ×2 (09:11→20:26)
[2017-09-17] MEDS: amLODIPine 5 MG TAB PO SCH ×2 (09:11→20:23)
[2017-09-17] MEDS ORDERED: LEVOFLOXACIN 750MG-D5W PMX 750 MG in DEXTROSE/WATER 1 150ML.BAG IVPB SCH (10:00)
--- NOTE | 2017-09-17 11:27 | P.PN ---
Subjective Progress Note Date: 09/17/17 Principal diagnosis: Respiratory failure, hypoxic encephalopathy, flush pulmonary edema, CHF, CK D, arrhythmia, bilateral hydronephrosis, CAD post CABG, type 2 diabetes This is a 71-year-old male one of Dr. Lucas Gallo's patient with past medical history of hypertension, hyperlipidemia, diabetes, COPD, chronic systolic and possible diastolic heart failure, alcoholism, coronary artery disease and underwent CABG 2015 ended up having multiple complications and the multiple rehospitalization for worsening shortness of breath, A. fib and other complication. He has had several admissions over the past 2 months for recurrent metabolic encephalopathy with sepsis of possible aspiration pneumonia and urinary tract infection. He has been followed by Dr. Nicholas, Dr. Louis. Thought changes were possibly related to narcotic use. On recent admission in July patient did require intubation. He is currently residing at [facility] on the care of Dr. Blackman and most recent discharge was on September 05. Patient was brought in by EMS on September 14 to the emergency center due to mental status changes. Patient was treated with increased Lasix [facility]. His vital signs were stable at that time , BUN 36 creatinine 2.08, normal white count. Troponin was negative. Patient return to [facility] emergency center on September 15 due to pulse ox of 80s, generalized weakness and decreased level of consciousness. Patient barely was placed on oxygen by EMS and became much more alert. Temperature max is 100.2, vital signs were otherwise stable. Initial pulse ox was 89%. EKG was atrial fibrillation controlled rate with T-wave inversion in the inferior leads. Patient was admitted to the selective care unit and consult placed with cardiology and pulmonary medicine. Patient's mentation appears to be back to his baseline. He is more alert and interactive today is feeling little bit better slightly decreased shortness of breath compared to before. Patient be seen cardiology still on diuretics whether can benefit from any further testing cardiac-hardwick are not is to be determined. Also patient has passed his swallow eval despite having aspiration pneumonia being treated for. Objective - Vital Signs Vital signs: Vital Signs Temp 97.1 F L 09/17/17 09:25 Pulse 76 09/17/17 09:25 Resp 20 09/17/17 09:25 BP 136/64 09/17/17 09:25 Pulse Ox 90 L 09/17/17 09:25 Intake & Output 09/16/17 09/17/17 09/17/17 18:59 06:59 18:59 Intake Total 250 50 100 Output Total 275 1250 Balance -25 -1200 100 Weight 67 kg 66 kg Intake: IV 50 Piperacillin-Tazobactam 3 50 .375 gm In Dextrose/Water 1 50ml.bag @ 12.5 mls/hr IVPB Q8H [facility] Rx#: [id number] Oral 250 100 Output: Urine 275 1250 Other: Voiding Method Indwelling Catheter Indwelling Catheter Indwelling Catheter # Bowel Movements 0 - Constitutional General appearance: Present: cooperative, disheveled, no acute distress. Absent : average body habitus, mild distress, morbidly obese, obese, severe distress, thin - EENT Eyes: Present: normal appearance. Absent: abnormal pupil, anicteric sclerae, disc margins sharp, edentulous, EOMI, PERRLA, fundus normal, photophobia, dentition normal, poor dentition, ptosis, scleral icterus ENT: Present: normal oropharynx. Absent: hard of hearing, hearing grossly normal, NA/AT, other, pharyngeal erythema, thrush, tonsillar exudates, tonsillar swelling Ears: bilateral: normal - Neck Neck: Present: normal ROM. Absent: lymphadenopathy, other, rigidity, stridor, thyromegaly Carotids: bilateral: upstroke normal, upstroke delayed Thyroid: bilateral: normal size - Respiratory Respiratory: bilateral: diminished, dullness, rales, rhonchi, wheezing - Cardiovascular Rhythm: regular Heart sounds: normal: S1, S2 Abnormal Heart Sounds: Present: systolic murmur, S3 Gallop - Gastrointestinal General gastrointestinal: Present: distended, hyperactive bowel sounds, soft. Absent: absent bowel sounds, decreased bowel sounds, hepatomegaly, normal bowel sounds, organomegaly, rigid, scaphoid, splenomegaly, tenderness, umbilical hernia, ventral hernia - Integumentary Integumentary: Present: normal, pale, rash. Absent: calor, cellulitis, cyanotic , decreased turgor, flushed, jaundiced, normal turgor, ulcer - Neurologic Neurologic: Present: CNII-XII intact. Absent: focal deficits - Musculoskeletal Musculoskeletal: Present: gait normal, generalized weakness. Absent: strength equal bilaterally, right sided weakness, left sided weakness - Psychiatric Psychiatric: Present: A&O x's 3. Absent: appropriate affect, intact judgment & insight - Labs CBC & Chem 7: 09/17/17 05:42 09/17/17 05:42 Labs: Abnormal Lab Results - Last 24 Hours (Table) 09/15/17 09/16/17 09/16/17 Range/Units 19:10 11:41 15:31 RBC (4.30-5.90) m/uL Hgb (13.0-17.5) gm/dL Hct (39.0-53.0) % RDW (11.5-15.5) % PT 12.4 H (9.0-12.0) sec INR 1.3 H (<1.2) BUN (9-20) mg/dL Creatinine (0.66-1.25) mg/dL Glucose (74-99) mg/dL POC Glucose (mg/dL) 151 H (75-99) mg/dL Hemoglobin A1c 7.1 H (4.0-6.0) % Calcium (8.4-10.2) mg/dL 09/16/17 09/16/17 09/17/17 Range/Units 16:33 21:08 05:42 RBC 3.20 L (4.30-5.90) m/uL Hgb 9.0 L (13.0-17.5) gm/dL Hct 28.1 L (39.0-53.0) % RDW 15.6 H (11.5-15.5) % PT (9.0-12.0) sec INR (<1.2) BUN (9-20) mg/dL Creatinine (0.66-1.25) mg/dL Glucose (74-99) mg/dL POC Glucose (mg/dL) 199 H 157 H (75-99) mg/dL Hemoglobin A1c (4.0-6.0) % Calcium (8.4-10.2) mg/dL 09/17/17 09/17/17 Range/Units 05:42 06:08 RBC (4.30-5.90) m/uL Hgb (13.0-17.5) gm/dL Hct (39.0-53.0) % RDW (11.5-15.5) % PT (9.0-12.0) sec INR (<1.2) BUN 37 H (9-20) mg/dL Creatinine 2.40 H (0.66-1.25) mg/dL Glucose 135 H (74-99) mg/dL POC Glucose (mg/dL) 147 H (75-99) mg/dL Hemoglobin A1c (4.0-6.0) % Calcium 7.8 L (8.4-10.2) mg/dL Microbiology - Last 24 Hours (Table) 09/15/17 19:10 Blood Culture Gram Stain - Preliminary Blood Blood Culture - Preliminary Presumptive MRSA 09/15/17 19:10 Urine Culture - Preliminary Urine,Catheterized Presumptive Staph aureus Group D Enterococcus 09/15/17 19:10 Blood Culture - Final Blood Assessment and Plan Plan: 1. Acute hypoxic respiratory failure with previous history of mechanical ventilation July and area to pulmonary edema. Continue with aggressive pulmonary toileting, monitor the patient very closely. O2 by cannula. Consult with Dr. Baron for possible aspiration. H therapy evaluation. His respiratory failure is most likely aspiration pneumonia with flush pulmonary edema try to treat both at this point and patient is doing better. For his aspiration pneumonia he has a combination of Enterobacter and possible MRSA he seen infectious disease for it and antibiotic will be changed accordingly in the meanwhile remain on Levaquin and Zosyn. 2. Hypoxia encephalopathy most likely secondary to low pulse ox. Patient's mentation improved with oxygen therapy. Continue as in #1., Has improved from the last 48 hours. 3. Flash pulmonary edema with acute on chronic systolic heart failure with possible diastolic heart failure secondary to coronary artery disease and angina. Patient recently had Lasix increased after his ER visit. Continue Lasix 40 mg IV every 8 hours. Continue Lopressor 12.5 mg twice daily, might require further cardiac workup. 4.. CKD stage III with recent acute failure secondary to ATN secondary to sepsis. Monitor for renal decompensation . Continue sodium bicarb 650 mg twice daily. 5. Arrhythmia history with prior Nonsustained ventricular tachycardia on 2015 H and was seen by cardiology echocardiogramJuly 2016 showed atrial fibrillation with small pericardial effusion noted ejection fraction 45-50% inferolateral hypokinesis with palpation of LA size over 40. 6. History bilateral hydronephrosis mild, improved from last ultrasound history Phimosis with urinary retention resolved monitor for urinary retention continue tamsulosin 7. CAD post CABG. continue aspirin 81 mg orally once every day, Lipitor 40 mg daily, Lopressor. 8. Diabetes mellitus type II: Continue with NovoLog sliding scale. Patient has been off scheduled insulin due to hypoglycemia. 9. Hypertensive cardiovascular disease. Continue amlodipine 5 mg twice daily, hydralazine 100 mg 3 times daily, lisinopril 5 mg daily, lopressor 12.5 mg twice daily. 10. Hyperlipidemia: Continue statin. 11. Chronic A. fib. Patient is no longer on Coumadin. This may be related to risk of falls. 12. Recurrent depression: Continue Paxil. 13. Seizure history: Has been on Keppra 750 g twice a day with no new seizure activity. 14. Urinary retention with BPH: Patient has chronic [place]on catheter. Continue Flomax. 15. Severe GERD: Will add Protonix 40 mg daily 16. Severe protein calorie malnutrition due to lack of oral intake. Protein supplement. 17. Chronic low back pain. No change.
--- NOTE | 2017-09-17 12:03 | P.CRDCN ---
History of Present Illness Consult date: 09/17/17 Requesting physician: Boom Olguin Consult reason: congestive heart failure History of present illness: This is a 70-year-old gentleman with known history of coronary artery disease and prior bypass surgery, chronic persistent atrial fibrillation, alcoholism, COPD, prior CVA, remote history of smoking, diabetes, hypertension, hyperlipidemia, presented to the hospital with symptoms of worsening shortness of breath. Patient has had multiple admissions over the past couple of months for recurrent metabolic encephalopathy with sepsis and possible aspiration pneumonia with associated UTI. He follows with Dr. Louis for his infectious disease needs as an outpatient. Patient was brought to the hospital on this occasion with symptoms of shortness of breath with acute mental status changes. He was initiated on IV Lasix in the emergency room. Diuresed well through the night last night, the weight this morning is down 4 kg. Hemoglobin 9.0, platelet count 193. Sodium 143, potassium 4.1, BUN 37, creatinine 2.4. Easy level I.6. Troponin 0.015. BNP level 7400. Temperature 100.2 on admission. Urine culture positive for presumptive staph aureus group D enterococcus. Blood cultures positive for presumptive MRSA. Patient was noted to have brief runs of nonsustained ventricular tachycardia, magnesium was replaced. At the time of my examination, patient was alert and oriented, he does state that his breathing is much improved from his admission here. And 10 used to be on IV Lasix 40 mg every 8 hourly. Also on antibiotics for aspiration pneumonia. Past Medical History Past Medical History: Atrial Fibrillation, Coronary Artery Disease (CAD), Heart Failure, COPD, Diabetes Mellitus, GERD/Reflux, Hyperlipidemia, Hypertension, Myocardial Infarction (OR), Musculoskeletal Disorder, Osteoarthritis (OA), Pneumonia, Prostate Disorder, Seizure Disorder, Sleep Apnea/CPAP/BIPAP Additional Past Medical History / Comment(s): Pt recently admitted [facility] 08/11/17 with metabolic encephalopathy with sepsis secondary to aspiration pneumonia/UTI and suspected Streptococcus pneumoniae bacteremia. Other HX: Nonsustained Vtach, pneumonias, severe GERD, TIA, Armas's Palsey, turinaty retention, phimosis , bilateral hydronephrosis, funez caths, suprapubic cath in past, chronic UTI'S , CATARACTS bilaterally, GOUT,DOES'NT USE CPAP KIDNEY STONE, BULGING DISCS, O2 3l nc most of the time, OR 11/2013 and seizures with the OR BPH, chronic low back pain, protein calorie malnutrition. Last Myocardial Infarction Date:: 2013 History of Any Multi-Drug Resistant Organisms: MRSA Date of last positivie culture/infection: 09/15/17 MDRO Source:: BLOOD Past Surgical History: Bladder Surgery, Coronary Bypass/CABG, Heart Catheterization Additional Past Surgical History / Comment(s): Cardiac cath with PTCA 12/14/13, CABG 5 vessel 01/02/14, BENIGN TUMOR ON PARATID GLANDS (RT) REMOVED, HAD A SUPRA PUBIC CATH IN PAST THAT GOT INFECTED. Past Anesthesia/Blood Transfusion Reactions: No Reported Reaction Past Psychological History: Depression Additional Psychological History / Comment(s): Pt currently lives at [facility]. He pretty much is in bed or wheelchair. Smoking Status: Current every day smoker Past Alcohol Use History: None Reported Additional Past Alcohol Use History / Comment(s): STARTED SMOKING AT AGE 19 QUIT 2012 (3PPD FOR 10 YEARS THEN DECREASED TO 2 PPD UNTIL HE QUIT). SON STATES HE RESUMED SMOKING ABOUT 6-8 MONTHS AGO. 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 , Past Drug Use History: None Reported - Past Family History Father Family Medical History: Cancer, Dementia, Hyperlipidemia, Hypertension, Myocardial Infarction (OR) Additional Family Medical History / Comment(s): AT AGE 78- Mother Family Medical History: No Reported History, Coronary Artery Disease (CAD), Dementia, Myocardial Infarction (OR) Additional Family Medical History / Comment(s): AT AGE 86 Brother(s) Family Medical History: No Reported History Sister(s) Family Medical History: No Reported History, Rheumatoid Arthritis (RA) Son(s) Family Medical History: No Reported History Daughter(s) Family Medical History: No Reported History Medications and Allergies Home Medications Medication Instructions Recorded Confirmed Type Isosorbide Mononitrate ER [Imdur] 30 mg PO DAILY 04/26/14 09/15/17 History levETIRAcetam [Keppra] 750 mg PO BID 04/26/14 09/15/17 History Atorvastatin [Lipitor] 40 mg PO HS 06/14/14 09/15/17 History Omeprazole [PriLOSEC] 20 mg PO BID 04/18/16 09/15/17 History Potassium Chloride ER [K-Dur 20] 20 meq PO HS 05/05/16 09/15/17 History Montelukast [Singulair] 10 mg PO HS 06/16/16 09/15/17 History Albuterol Inhaler [Ventolin Hfa 2 puff INHALATION RT-Q6H PRN 08/11/17 09/15/17 History Inhaler] Budesonide [Pulmicort] 0.5 mg INHALATION RT-BID 08/11/17 09/15/17 History Ipratropium-Albuterol Nebulize 3 ml INHALATION RT-QID@08,12,16,20 08/11/1709/15 History [Duoneb 0.5 mg-3 mg/3 ml Soln] Nitroglycerin Sl Tabs [Nitrostat] 0.4 mg SUBLINGUAL Q5M PRN 08/11/17 09/15/17 History PARoxetine [Paxil] 10 mg PO DAILY tab 08/26/17 09/15/17 Rx Sodium Bicarbonate Tab 650 mg PO BID tab 08/26/17 09/15/17 Rx Insulin Aspart [NovoLOG See Protocol SQ ACHS 08/31/17 09/15/17 History (formulary)] Lisinopril [Zestril] 5 mg PO DAILY 08/31/17 09/15/17 History Metoprolol Tartrate [Lopressor] 12.5 mg PO BID 08/31/17 09/15/17 History Multivitamins, Thera [Multivitamin 1 tab PO HS 08/31/17 09/15/17 History (formulary)] Prostat Sugar Free 30 ml PO BID 08/31/17 09/15/17 History hydrALAZINE HCL [Apresoline] 100 mg PO TID@08,12,16 08/31/17 09/15/17 History Formoterol Fumarate [Perforomist] 20 mcg INHALATION RT-BID nebu 09/02/17 Rx Moxifloxacin HCl [Avelox] 400 mg PO DAILY #10 tablet 09/02/17 09/15/17 Rx amLODIPine [Norvasc] 5 mg PO BID #0 tab 09/02/17 09/15/17 Rx Clotrimazole/Betamethasone Dip 1 applic TOPICAL BID 09/14/17 09/15/17 History [Lotrisone Cream] Furosemide [Lasix] 80 mg PO BID 09/14/17 09/15/17 History Furosemide [Lasix] 80 mg PO Q8HR #10 tablet 09/14/17 09/15/17 Rx HYDROcodone/APAP 5-325MG [[place] 1 tab PO Q8H PRN 09/14/17 09/15/17 History 5-325] Ipratropium-Albuterol Nebulize 3 ml INHALATION RT-Q6H PRN 09/14/17 09/15/17 History [Duoneb 0.5 mg-3 mg/3 ml Soln] Tamsulosin [Flomax] 0.4 mg PO BID 09/14/17 09/15/17 History Allergies Allergy/AdvReac Type Severity Reaction Status Date / Time adhesive AdvReac Unknown Verified 09/15/17 19:34 influenza virus vaccine, AdvReac Nausea & Verified 09/15/17 19:34 specific Vomiting & [Influenza Virus Diarrhea Vacc,Specific] Physical Exam Vitals: Vital Signs Temp Pulse Pulse Resp BP BP Pulse Ox 09/17/17 11:40 72 09/17/17 09:25 97.1 F L 76 20 136/64 90 L 09/17/17 08:50 76 09/17/17 08:41 72 09/17/17 08:40 72 09/17/17 08:32 72 94 L 09/17/17 04:00 97.3 F L 74 18 142/66 94 L 09/17/17 00:00 98.7 F 71 20 136/66 94 L 09/16/17 20:00 98.7 F 70 20 134/63 97 09/16/17 19:36 78 09/16/17 19:25 78 09/16/17 19:24 78 09/16/17 19:16 77 09/16/17 16:22 72 09/16/17 16:08 72 09/16/17 16:00 98 F 77 18 135/62 92 L 09/16/17 12:09 68 09/16/17 12:00 97.4 F L 70 20 108/59 95 09/16/17 11:58 68 Intake and Output 09/16/17 09/17/17 09/17/17 22:59 06:59 14:59 Intake Total 60 50 100 Output Total 750 500 Balance -690 -450 100 Intake: IV 50 Piperacillin-Tazobactam 3 50 .375 gm In Dextrose/Water 1 50ml.bag @ 12.5 mls/hr IVPB Q8H [facility] Rx#: [id number] Oral 60 100 Output: Urine 750 500 Other: Voiding Method Indwelling Catheter Indwelling Catheter Weight 66 kg PHYSICAL EXAMINATION: GENERAL: HEENT: Head is atraumatic, normocephalic. Pupils equal, round. Sclera anicteric. Conjunctiva are clear. Mucous membranes of the mouth are moist. Neck is supple. There is no elevated jugular venous pressure.] bruit is heard. HEART EXAMINATION: [Heart S1, S2 systolic murmur is heard. ] CHEST EXAMINATION: Lungs reveal diminished air entry bilaterally with scattered coarse rhonchi and wheezing throughout. ABDOMEN: [ Soft, nontender. Mildly distended. Bowel sounds are heard. No organomegaly noted]. EXTREMITIES:[ 2+ peripheral pulses with no evidence of peripheral edema and no calf tenderness noted]. NEUROLOGIC [patient is awake, alert and oriented -3.] . Results 09/17/17 05:42 09/17/17 05:42 Coagulation 09/16/17 Range/Units 15:31 PT 12.4 H (9.0-12.0) sec CBC 09/17/17 Range/Units 05:42 WBC 8.8 (3.8-10.6) k/uL RBC 3.20 L (4.30-5.90) m/uL Hgb 9.0 L (13.0-17.5) gm/dL Hct 28.1 L (39.0-53.0) % Plt Count 193 (150-450) k/uL Comprehensive Metabolic Panel 09/17/17 Range/Units 05:42 Sodium 143 (137-145) mmol/L Potassium 4.1 (3.5-5.1) mmol/L Chloride 103 (98-107) mmol/L Carbon Dioxide 28 (22-30) mmol/L BUN 37 H (9-20) mg/dL Creatinine 2.40 H (0.66-1.25) mg/dL Glucose 135 H (74-99) mg/dL Calcium 7.8 L (8.4-10.2) mg/dL Current Medications Generic Name Dose Route Start Last Admin Trade Name Freq PRN Reason Stop Dose Admin Albuterol Sulfate 2.5 mg 09/16/17 09:28 Ventolin Nebulized INHALATION RT-Q6H PRN Shortness Of Breath Albuterol/Ipratropium 3 ml 09/16/17 09:28 Duoneb 0.5 Mg-3 Mg/3 Ml Soln INHALATION RT-Q6H PRN Shortness Of Breath Or Wheezing Albuterol/Ipratropium 3 ml 09/16/17 12:00 09/17/17 11:39 Duoneb 0.5 Mg-3 Mg/3 Ml Soln INHALATION 3 ml RT-QID@,,16,20 ALMA ROSA Administration Amlodipine Besylate 5 mg 09/16/17 21:00 09/17/17 09:11 Norvasc PO 5 mg BID ALMA ROSA Administration Atorvastatin Calcium 40 mg 09/16/17 21:00 09/16/17 20:51 Lipitor PO 40 mg HS ALMA ROSA Administration Betamethasone/Clotrimazole 1 applic 09/16/17 21:00 09/17/17 09:11 Lotrisone TOPICAL 1 applic BID ALMA ROSA Administration Budesonide 0.5 mg 09/16/17 20:00 09/17/17 08:28 Pulmicort INHALATION 0.5 mg RT-BID ALMA ROSA Administration Formoterol Fumarate 20 mcg 09/16/17 20:00 09/17/17 08:28 Perforomist INHALATION 20 mcg RT-BID ALMA ROSA Administration Furosemide 40 mg 09/15/17 20:45 09/17/17 04:48 Lasix IV 40 mg Q8H ALMA ROSA Administration Heparin Sodium (Porcine) 5,000 unit 09/16/17 16:00 09/17/17 09:11 Heparin SQ 5,000 unit Q8HR ALMA ROSA Administration Hydralazine HCl 100 mg 09/16/17 12:00 09/17/17 09:11 Apresoline PO 100 mg TID@,16 ALMA ROSA Administration Piperacillin/Tazobactam/ 50 mls @ 12.5 mls/hr 09/16/17 10:00 09/17/17 02:53 Dextrose 3.375 gm/ IV Solution IVPB 12.5 mls/hr Q8H ALMA ROSA Administration Levofloxacin 750 mg/ IV 150 mls @ 100 mls/hr 09/17/17 10:00 09/17/17 09:14 Solution IVPB 100 mls/hr Q48H ALMA ROSA Administration Magnesium Sulfate/Dextrose 1 100 mls @ 100 mls/hr 09/17/17 10:00 gm/ IV Solution IVPB 09/17/17 11:59 Q1H [facility] Isosorbide Mononitrate 30 mg 09/16/17 09:30 09/17/17 09:11 Imdur PO 30 mg DAILY ALMA ROSA Administration Levetiracetam 750 mg 09/16/17 21:00 09/17/17 09:10 Keppra PO 750 mg BID ALMA ROSA Administration Lisinopril 5 mg 09/17/17 09:00 09/17/17 09:10 Zestril PO 5 mg DAILY ALMA ROSA Administration Metoprolol Tartrate 12.5 mg 09/16/17 21:00 09/17/17 09:10 Lopressor PO 12.5 mg BID ALMA ROSA Administration Montelukast Sodium 10 mg 09/16/17 21:00 09/16/17 20:51 Singulair PO 10 mg HS ALMA ROSA Administration Multivitamins 1 each 09/16/17 21:00 09/16/17 20:51 Theragran PO 1 each HS ALMA ROSA Administration Nitroglycerin 0.4 mg 09/16/17 09:28 Nitrostat SUBLINGUAL Q5M PRN Chest Pain Pantoprazole Sodium 40 mg 09/17/17 07:30 09/17/17 06:41 Protonix PO 40 mg DAILY@0730 ALMA ROSA Administration Paroxetine HCl 10 mg 09/17/17 09:00 09/17/17 09:10 Paxil PO 10 mg DAILY ALMA ROSA Administration Potassium Chloride 20 meq 09/16/17 21:00 09/16/17 20:51 K-Dur 20 PO 20 meq HS ALMA ROSA Administration Sodium Bicarbonate 650 mg 09/16/17 21:00 09/17/17 09:10 Sodium Bicarbonate Tab PO 650 mg BID [facility] Administration Tamsulosin HCl 0.4 mg 09/16/17 21:00 09/17/17 09:10 Flomax PO 0.4 mg BID ALMA ROSA Administration Intake and Output 09/16/17 09/17/17 09/17/17 22:59 06:59 14:59 Intake Total 60 50 100 Output Total 750 500 Balance -690 -450 100 Intake: IV 50 Piperacillin-Tazobactam 3 50 .375 gm In Dextrose/Water 1 50ml.bag @ 12.5 mls/hr IVPB Q8H [facility] Rx#: [id number] Oral 60 100 Output: Urine 750 500 Other: Voiding Method Indwelling Catheter Indwelling Catheter Weight 66 kg 09/17/17 05:42 09/17/17 05:42 EKG Interpretations (text) EKG shows atrial fibrillation with a controlled ventricular response. Nonspecific ST-T wave changes in the inferior lateral leads. Assessment and Plan Plan: Assessment and plan #1 acute hypoxic respiratory failure, likely secondary to congestive heart failure with preserved left ventricular systolic function. Aspiration pneumonia. #2 chronic kidney disease stage III #3 arrhythmia with nonsustained ventricular tachycardia, hypomagnesemia, replaced #4 coronary artery disease with prior bypass surgery Number 5 diabetes #6 hypertension #7 hyperlipidemia #8 chronic persistent atrial fibrillation, no longer on anticoagulation because of risk for fall. #9 GERD Plan From cardiology's perspective, we will replace the patient's magnesium, continue current dose of IV Lasix. Monitor intake and output along with daily weights and daily lytes BUN and creatinine. DNP note has been reviewed, I agree with a documented findings and plan of care. Patient was seen and examined.
--- NOTE | 2017-09-17 12:25 | P.PN ---
Subjective Progress Note Date: 09/17/17 Principal diagnosis: Altered mental status secondary to suspected urinary tract infection. This is a 71-year-old gentleman who follows with Dr. Lucas Gallo as his primary care physician. He has multiple chronic medical issues including coronary artery disease with previous coronary artery bypass grafting, atrial fibrillation, diastolic congestive heart failure with preserved left ventricular systolic function and ejection fraction of 50-55%, chronic obstructive pulmonary disease and is a former smoker and is now oxygen dependent , obstructive sleep apnea noncompliant with CPAP, diabetes mellitus, alcoholism , hypertension, hyperlipidemia, osteoarthritis, seizure disorder, prostate disorder, previous suprapubic catheter and multiple he was recently here and discharge in August 2017 for streptococcal pneumonia septicemia. This is his third admission this month. He was brought in again yesterday from the [facility] care facility as he was noted to have altered mental status, oxygen saturations in the 80s, weakness. The patient himself is a very poor historian. Most information is taken from the chart and previous history. His chest x-ray reveals evidence of congestive heart failure and bilateral pleural effusions. ProBNP 7400. Creatinine 2.54. White count 8.1. Hemoglobin 9.4. Urinalysis is pending. He is currently maintaining O2 saturations in the 90s on 5 L/m per nasal cannula. He's been afebrile. Hemodynamically stable. He has been initiated on antibiotics in the form of Zosyn and Levaquin. The patient is seen again today 09/17/2017 in follow-up on the selective care unit. He is more awake and alert today as compared to yesterday. He currently denies any worsening shortness of breath, cough or congestion. He is maintaining O2 saturations in the low 90s on 5 L/m per nasal cannula. Currently afebrile. Hemodynamically stable. Blood culture is positive for presumptive MRSA, urine culture is positive for presumptive staph aureus and group D enterococcus. He is currently on Zosyn and Levaquin. White count 8.8. Hemoglobin 9.0. Creatinine 2.40. Objective - Vital Signs Vital signs: Vital Signs Temp 97.1 F L 09/17/17 09:25 Pulse 72 09/17/17 11:49 Resp 20 09/17/17 09:25 BP 136/64 09/17/17 09:25 Pulse Ox 90 L 09/17/17 09:25 Intake & Output 09/16/17 09/17/17 09/17/17 18:59 06:59 18:59 Intake Total 250 50 100 Output Total 275 1250 Balance -25 -1200 100 Weight 67 kg 66 kg Intake: IV 50 Piperacillin-Tazobactam 3 50 .375 gm In Dextrose/Water 1 50ml.bag @ 12.5 mls/hr IVPB Q8H [facility] Rx#: [id number] Oral 250 100 Output: Urine 275 1250 Other: Voiding Method Indwelling Catheter Indwelling Catheter Indwelling Catheter # Voids 0 # Bowel Movements 0 - Exam GENERAL EXAM: Frail, cachectic, comfortable in no apparent distress. HEAD: Normocephalic. EYES: Normal reaction of pupils, equal size. NOSE: Clear with pink turbinates. THROAT: No erythema or exudates. NECK: No masses, positive JVD. CHEST: No chest wall deformity. LUNGS: Equal air entry with echoes in the bilateral posterior bases. Rhonchi scattered. CVS: S1 and S2 normal with an audible murmur, irregular rhythm. ABDOMEN: No hepatosplenomegaly, normal bowel sounds, no guarding or rigidity. SPINE: Kyphoscoliosis SKIN: Ecchymosis. CENTRAL NERVOUS SYSTEM: No focal deficits, tone is normal in all 4 extremities. EXTREMITIES: There is no peripheral edema. No clubbing, no cyanosis. Peripheral pulses are intact. - Labs CBC & Chem 7: 09/17/17 05:42 09/17/17 05:42 Labs: Abnormal Lab Results - Last 24 Hours (Table) 09/15/17 09/16/17 09/16/17 Range/Units 19:10 15:31 16:33 RBC (4.30-5.90) m/uL Hgb (13.0-17.5) gm/dL Hct (39.0-53.0) % RDW (11.5-15.5) % PT 12.4 H (9.0-12.0) sec INR 1.3 H (<1.2) BUN (9-20) mg/dL Creatinine (0.66-1.25) mg/dL Glucose (74-99) mg/dL POC Glucose (mg/dL) 199 H (75-99) mg/dL Hemoglobin A1c 7.1 H (4.0-6.0) % Calcium (8.4-10.2) mg/dL 09/16/17 09/17/17 09/17/17 Range/Units 21:08 05:42 05:42 RBC 3.20 L (4.30-5.90) m/uL Hgb 9.0 L (13.0-17.5) gm/dL Hct 28.1 L (39.0-53.0) % RDW 15.6 H (11.5-15.5) % PT (9.0-12.0) sec INR (<1.2) BUN 37 H (9-20) mg/dL Creatinine 2.40 H (0.66-1.25) mg/dL Glucose 135 H (74-99) mg/dL POC Glucose (mg/dL) 157 H (75-99) mg/dL Hemoglobin A1c (4.0-6.0) % Calcium 7.8 L (8.4-10.2) mg/dL 09/17/17 Range/Units 06:08 RBC (4.30-5.90) m/uL Hgb (13.0-17.5) gm/dL Hct (39.0-53.0) % RDW (11.5-15.5) % PT (9.0-12.0) sec INR (<1.2) BUN (9-20) mg/dL Creatinine (0.66-1.25) mg/dL Glucose (74-99) mg/dL POC Glucose (mg/dL) 147 H (75-99) mg/dL Hemoglobin A1c (4.0-6.0) % Calcium (8.4-10.2) mg/dL Microbiology - Last 24 Hours (Table) 09/15/17 19:10 Blood Culture Gram Stain - Preliminary Blood Blood Culture - Preliminary Presumptive MRSA 09/15/17 19:10 Urine Culture - Preliminary Urine,Catheterized Presumptive Staph aureus Group D Enterococcus 09/15/17 19:10 Blood Culture - Final Blood Assessment and Plan Assessment: Impression: #1 Altered mental status secondary to suspected urinary tract infection. Urine is positive for presumptive staph aureus, group D enterococcus positive bacteremia with presumptive MRSA. #2 Recent discharge for recurrent metabolic encephalopathy and sepsis. #3 Acute on chronic hypoxic respiratory failure secondary to bilateral pleural effusions associated with bibasilar atelectasis/infiltrate. Most likely secondary to acute exacerbation of diastolic congestive heart failure. #4 Acute on chronic renal failure. #5 Anemia of chronic disease. #6 Cachexia with protein calorie malnutrition. #7 History of oxygen dependent chronic obstructive pulmonary disease with chronic tobacco dependence. #8 History of obstructive sleep apnea and not utilizing CPAP in the outpatient setting. #9 Coronary artery disease with previous coronary artery bypass grafting. #10 Atrial fibrillation not on anticoagulants in the outpatient setting. #11 Recent hospitalization for metabolic encephalopathy, sepsis secondary to Streptococcus pneumoniae bacteremia. Required intubation and mechanical ventilatory support. #12 Diabetes mellitus. #13 History of alcoholism. #14 History of hypertension. #15 Hyperlipidemia. #16 Osteoarthritis. #17 Seizure disorder. #18 History of prostate disorder. #19 History of supra pubic catheter. #20 Poor overall functional performance based on the above-mentioned multiple comorbidities. Plan: The patient was seen and evaluated by Dr. Baron. Microbiology was reviewed. We 'll discontinue the Zosyn and Levaquin. Start the patient on vancomycin with pharmacy to dose. Please an ID consult. Continue with his pulmonary medications. Continue with diuretics. Continue to titrate down the FiO2 and maintaining O2 saturations greater than 90%. We'll continue to follow and make further recommendations based on his clinical status. I, the cosigning physician, performed a history & physical examination of the patient. Lungs sounds with crackles in the bilateral posterior bases. Diminished. Maintaining good O2 saturations in the 90s on 5 liters per minute per nasal cannula.. I discussed the assessment and plan of care with my nurse practitioner, Shruti Thrasher. I attest to the above progress note as dictated by her.
[2017-09-17] MEDS: MAGNESIUM SULFATE-D5W PMX 1 GM in DEXTROSE/WATER 1 100ML.BAG IVPB SCH ×2 (12:28→14:28)
[2017-09-17] MEDS ORDERED: VANCOMYCIN 1,000 MG in SODIUM CHLORIDE 0.9% 250 ML IVPB STA (12:30)
[2017-09-17] MEDS ORDERED: VANCOMYCIN 1,250 MG in SODIUM CHLORIDE 0.9% 250 ML IVPB STA (12:37)
[2017-09-17] MEDS ORDERED: VANCOMYCIN IV PER PHARMACY 1 EACH MISC MISCELLANE ONE (12:45)
--- NOTE | 2017-09-17 15:35 | US ---
EXAMINATION TYPE: US renals and bladder DATE OF EXAM: 09/17/2017 COMPARISON: US CLINICAL HISTORY: UTI/Bacteremia. UTI EXAM MEASUREMENTS: Right Kidney: 12.8 x 4.5 x 5.2 cm Left Kidney: 11.7 x 5.7 x 5.9 cm Left kidney difficult to visualize, pt immobile, scanned portable Right Kidney: Appeared echogenic, otherwise wnl . No hydronephrosis or nephrolithiasis. Left Kidney: Unremarkable. No hydronephrosis or nephrolithiasis. Bladder: Cath in place There is no evidence for hydronephrosis at this point in time. No nephrolithiasis is seen. No tavo s are identified. The urinary bladder is anechoic. Bilateral ureteral jets are seen. IMPRESSION: No hydronephrosis or nephrolithiasis of either kidney. Right renal cortical echogenicity may relate t o technique or may relate to early medical renal disease. Urinary bladder is nondistended due to a Fo suyapa catheter.
[2017-09-17] MEDS ORDERED: DAPTOmycin 500 MG in SODIUM CHLORIDE 0.9% 50 ML IVPB SCH (16:00)
--- NOTE | 2017-09-17 16:28 | PN ---
PROGRESS NOTE This is a gentleman came in with increasing shortness of breath. It appears to be kind of malnourished. He has history of prior bypass surgery. He is not a good historian. Surgery was at least 5 years ago. He is in clinically congestive heart failure and has been given diuretics. I am recommending that we repeat another echocardiogram and see how he does. The patient has what seems to be a chronic renal failure type picture as well. We will diurese him cautiously. Check his labs and obtain an additional echocardiogram and based on this I will make further recommendations. I discussed my thoughts in detail with the patient and also talked to his brother. LINUSL / MARÍA ELENAN: [id number] /
[2017-09-17 16:50] LABS: Amorphous Sediment,Urine Occasional /hpf; Appearance,Urine Clear (Clear); Bilirubin,Urine Negative (Negative); Blood,Urine Negative (Negative); Calcium Oxalate Crystals,Urine Rare /hpf; Color,Urine Yellow; Glucose,Urine (UA) Trace (Negative); Hyaline Casts,Urine 9 /lpf (0-2); Ketones,Urine Negative (Negative); Leukocyte Esterase,Urine Moderate (Negative); Mucus,Urine Rare /hpf; Nitrite,Urine Negative (Negative); PH, Urine 5.5 (5.0-8.0); Protein,Urine 2+ (Negative); RBC,Urine 8 /hpf (0-5); Urobilinogen,Urine <2.0 mg/dL (<2.0); WBC,Urine 32 /hpf (0-5)
[2017-09-17 16:57] LABS: Glucose,Whole Blood 200 mg/dL (75-99)
--- NOTE | 2017-09-17 20:10 | P.CONS ---
History of Present Illness - Reason for Consult Consult date: 09/17/17 MRSA bacteremia and UTI Requesting physician: Boom Olguin - Chief Complaint Mental status changes , fever and hypoxia - History of Present Illness Patient is a 71-year-[facility] ER on 09/15/2017 for apparently the patient noticed to be hypoxic with sats in the upper 80s patient has been complaining of weakness and decreased level of consciousness on arrival to the EMS patient was sitting up with oxygenation in the mid 90s patient subsequently has been brought to the [facility] ER for further evaluation on arrival to the ER the patient did have low-grade fever 100.2 patient white count was normal his urine was significantly positive, that has been obtained from the Funez catheter patient had did have a chest x-ray which shows congestive heart failure with pleural effusion this appears worse than yesterday patient had did have blood cultures drawn which is showing presumptive MRSA that prompted this infectious disease consultation he did receive 1 dose of vancomycin by the pulmonary service, urine culture is currently showing presumptive staph aureus and group D enterococcus but when asked specifically to the patient why he is here he has no idea, though he denies having any chest pain shortness of breath or any cough to me no abdominal pain unclear with the last of the Funez catheter has been changed. Review of Systems Could not be reliably obtained though the positive points has been mentioned in HPI Past Medical History Past Medical History: Atrial Fibrillation, Coronary Artery Disease (CAD), Heart Failure, COPD, Diabetes Mellitus, GERD/Reflux, Hyperlipidemia, Hypertension, Myocardial Infarction (NM), Musculoskeletal Disorder, Osteoarthritis (OA), Pneumonia, Prostate Disorder, Seizure Disorder, Sleep Apnea/CPAP/BIPAP Additional Past Medical History / Comment(s): Pt recently admitted [facility] 08/11/17 with metabolic encephalopathy with sepsis secondary to aspiration pneumonia/UTI and suspected Streptococcus pneumoniae bacteremia. Other HX: Nonsustained Vtach, pneumonias, severe GERD, TIA, Armas's Palsey, turinaty retention, phimosis , bilateral hydronephrosis, funez caths, suprapubic cath in past, chronic UTI'S , CATARACTS bilaterally, GOUT,DOES'NT USE CPAP KIDNEY STONE, BULGING DISCS, O2 3l nc most of the time, NM 11/2013 and seizures with the NM BPH, chronic low back pain, protein calorie malnutrition. 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 Past Anesthesia/Blood Transfusion Reactions: No Reported Reaction Past Psychological History: Depression Additional Psychological History / Comment(s): Pt currently lives at [facility]. He pretty much is in bed or wheelchair. Smoking Status: Current every day smoker Past Alcohol Use History: None Reported Additional Past Alcohol Use History / Comment(s): STARTED SMOKING AT AGE 19 QUIT 2012 (3PPD FOR 10 YEARS THEN DECREASED TO 2 PPD UNTIL HE QUIT). SON STATES HE RESUMED SMOKING ABOUT 6-8 MONTHS AGO. 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 , Past Drug Use History: None Reported - Past Family History Father Family Medical History: Cancer, Dementia, Hyperlipidemia, Hypertension, Myocardial Infarction (NM) Additional Family Medical History / Comment(s): AT AGE 78- Mother Family Medical History: No Reported History, Coronary Artery Disease (CAD), Dementia, Myocardial Infarction (NM) Additional Family Medical History / Comment(s): AT AGE 86 Brother(s) Family Medical History: No Reported History Sister(s) Family Medical History: No Reported History, Rheumatoid Arthritis (RA) Son(s) Family Medical History: No Reported History Daughter(s) Family Medical History: No Reported History Medications and Allergies Home Medications Medication Instructions Recorded Confirmed Type Isosorbide Mononitrate ER [Imdur] 30 mg PO DAILY 04/26/14 09/15/17 History levETIRAcetam [Keppra] 750 mg PO BID 04/26/14 09/15/17 History Atorvastatin [Lipitor] 40 mg PO HS 06/14/14 09/15/17 History Omeprazole [PriLOSEC] 20 mg PO BID 04/18/16 09/15/17 History Potassium Chloride ER [K-Dur 20] 20 meq PO HS 05/05/16 09/15/17 History Montelukast [Singulair] 10 mg PO HS 06/16/16 09/15/17 History Albuterol Inhaler [Ventolin Hfa 2 puff INHALATION RT-Q6H PRN 08/11/17 09/15/17 History Inhaler] Budesonide [Pulmicort] 0.5 mg INHALATION RT-BID 08/11/17 09/15/17 History Ipratropium-Albuterol Nebulize 3 ml INHALATION RT-QID@08,12,16,20 08/11/1709/15 History [Duoneb 0.5 mg-3 mg/3 ml Soln] Nitroglycerin Sl Tabs [Nitrostat] 0.4 mg SUBLINGUAL Q5M PRN 08/11/17 09/15/17 History PARoxetine [Paxil] 10 mg PO DAILY tab 08/26/17 09/15/17 Rx Sodium Bicarbonate Tab 650 mg PO BID tab 08/26/17 09/15/17 Rx Insulin Aspart [NovoLOG See Protocol SQ ACHS 08/31/17 09/15/17 History (formulary)] Lisinopril [Zestril] 5 mg PO DAILY 08/31/17 09/15/17 History Metoprolol Tartrate [Lopressor] 12.5 mg PO BID 08/31/17 09/15/17 History Multivitamins, Thera [Multivitamin 1 tab PO HS 08/31/17 09/15/17 History (formulary)] Prostat Sugar Free 30 ml PO BID 08/31/17 09/15/17 History hydrALAZINE HCL [Apresoline] 100 mg PO TID@08,12,16 08/31/17 09/15/17 History Formoterol Fumarate [Perforomist] 20 mcg INHALATION RT-BID nebu 09/02/17 Rx Moxifloxacin HCl [Avelox] 400 mg PO DAILY #10 tablet 09/02/17 09/15/17 Rx amLODIPine [Norvasc] 5 mg PO BID #0 tab 09/02/17 09/15/17 Rx Clotrimazole/Betamethasone Dip 1 applic TOPICAL BID 09/14/17 09/15/17 History [Lotrisone Cream] Furosemide [Lasix] 80 mg PO BID 09/14/17 09/15/17 History Furosemide [Lasix] 80 mg PO Q8HR #10 tablet 09/14/17 09/15/17 Rx HYDROcodone/APAP 5-325MG [[place] 1 tab PO Q8H PRN 09/14/17 09/15/17 History 5-325] Ipratropium-Albuterol Nebulize 3 ml INHALATION RT-Q6H PRN 09/14/17 09/15/17 History [Duoneb 0.5 mg-3 mg/3 ml Soln] Tamsulosin [Flomax] 0.4 mg PO BID 09/14/17 09/15/17 History Allergies Allergy/AdvReac Type Severity Reaction Status Date / Time adhesive AdvReac Unknown Verified 09/15/17 19:34 influenza virus vaccine, AdvReac Nausea & Verified 09/15/17 19:34 specific Vomiting & [Influenza Virus Diarrhea Vacc,Specific] Physical Exam Vitals: Vital Signs Temp Pulse Pulse Resp BP BP Pulse Ox 09/17/17 12:00 97.5 F L 72 20 126/69 92 L 09/17/17 11:49 72 09/17/17 11:40 72 09/17/17 09:25 97.1 F L 76 20 136/64 90 L 09/17/17 08:50 76 09/17/17 08:41 72 09/17/17 08:40 72 09/17/17 08:32 72 94 L 09/17/17 04:00 97.3 F L 74 18 142/66 94 L 09/17/17 00:00 98.7 F 71 20 136/66 94 L 09/16/17 20:00 98.7 F 70 20 134/63 97 09/16/17 19:36 78 09/16/17 19:25 78 09/16/17 19:24 78 09/16/17 19:16 77 09/16/17 16:22 72 09/16/17 16:08 72 09/16/17 16:00 98 F 77 18 135/62 92 L Intake and Output 09/17/17 09/17/17 09/17/17 06:59 14:59 22:59 Intake Total 50 790 Output Total 500 625 Balance -450 165 Intake: IV 50 Piperacillin-Tazobactam 3 50 .375 gm In Dextrose/Water 1 50ml.bag @ 12.5 mls/hr IVPB Q8H [facility] Rx#: [id number] Intake, IV Titration 600 Amount Levofloxacin 750Mg-D5w 150 Pmx 750 mg In Dextrose/ Water 1 150ml.bag @ 100 mls/hr IVPB Q48H [facility] Rx#: [id number] Magnesium Sulfate-D5w Pmx 200 1 gm In Dextrose/Water 1 100ml.bag @ 100 mls/hr IVPB Q1H [facility] Rx#: [id number] Vancomycin 1,250 mg In 250 Sodium Chloride 0.9% 250 ml @ 125 mls/hr IVPB ONCE ONE Rx#:[id number] Oral 190 Output: Urine 500 625 Uretheral (Funez) 275 Other: Voiding Method Indwelling Catheter Indwelling Catheter # Voids 0 Weight 66 kg General: The patient is awake and alert, in no distress. Skin: no rashes or lesions are noted no masses palpable. Eye: pallor , no scleral icterus. Ears, nose, mouth and throat: mucous membranes are dry and no oral lesions. Neck: Trachea central, there is no thyromegaly. Cardiovascular: S1-S2 regular rate and rhythm. No murmur. Respiratory: Unlabored breathing , decreased breath sounds at bases Gastrointestinal: Soft, non-distended, non-tender abdomen without masses or organomegaly noted. Genitourinary : Fuenz catheter with dark urine , no hematuria Psychiatric: Patient is awake and alert and oriented x1 , mood & affect normal Results CBC & Chem 7: 09/17/17 05:42 09/17/17 05:42 Labs: Abnormal Lab Results - Last 24 Hours (Table) 09/16/17 09/16/17 09/16/17 Range/Units 15:31 16:33 21:08 RBC (4.30-5.90) m/uL Hgb (13.0-17.5) gm/dL Hct (39.0-53.0) % RDW (11.5-15.5) % PT 12.4 H (9.0-12.0) sec INR 1.3 H (<1.2) BUN (9-20) mg/dL Creatinine (0.66-1.25) mg/dL Glucose (74-99) mg/dL POC Glucose (mg/dL) 199 H 157 H (75-99) mg/dL Calcium (8.4-10.2) mg/dL 09/17/17 09/17/17 09/17/17 Range/Units 05:42 05:42 06:08 RBC 3.20 L (4.30-5.90) m/uL Hgb 9.0 L (13.0-17.5) gm/dL Hct 28.1 L (39.0-53.0) % RDW 15.6 H (11.5-15.5) % PT (9.0-12.0) sec INR (<1.2) BUN 37 H (9-20) mg/dL Creatinine 2.40 H (0.66-1.25) mg/dL Glucose 135 H (74-99) mg/dL POC Glucose (mg/dL) 147 H (75-99) mg/dL Calcium 7.8 L (8.4-10.2) mg/dL Microbiology - Last 24 Hours (Table) 09/15/17 19:10 Blood Culture Gram Stain - Preliminary Blood Blood Culture - Preliminary Presumptive MRSA 09/15/17 19:10 Urine Culture - Preliminary Urine,Catheterized Presumptive Staph aureus Group D Enterococcus 09/15/17 19:10 Blood Culture - Final Blood Assessment and Plan (1) MRSA bacteremia Current Visit: Yes Status: Acute Code(s): R78.81 - BACTEREMIA SNOMED Code( s): 67767144499473641 (2) Urinary tract infection Current Visit: Yes Status: Acute Code(s): N39.0 - URINARY TRACT INFECTION, SITE NOT SPECIFIED SNOMED Code(s): 67698297 Plan: IMPRESSION : 1-patient with staph aureus bacteremia source is likely catheter associated urinary tract infection with the urine showing the same pathogen will make sure there is no evidence of any structural abnormality or deep infection responsible for this bacteremia. 2-patient who do have elevated BUN and creatinine put him at high risk of nephrotoxicity from vancomycin PLAN: 1-blood cultures 1 repeated to document clearance of his bacteremia 2-discontinue the vancomycin 3-daptomycin 6 mg/kg q48 hr , dose adjusted to his kidney function 4-obtain ultrasound of the kidneys and the bladder area. 5-change his Funez catheter obtain urine culture from the new Funez
[2017-09-17] MEDS: POTASSIUM CHLORIDE ER 20 MEQ TAB.ER PO SCH (20:23)
[2017-09-17] MEDS: MULTIVITAMINS, THERA 1 EACH TAB PO SCH (20:23)
[2017-09-17] MEDS: MONTELUKAST 10 MG TAB PO SCH (20:23)
[2017-09-17 21:01] LABS: Glucose,Whole Blood 177 mg/dL (75-99)
[2017-09-18] MEDS: HEPARIN SODIUM,PORCINE 5,000 UNIT/ML 1 ML VIAL SQ SCH ×4 (00:14→23:58)
[2017-09-18] MEDS: FUROSEMIDE 10 MG/ML 4 ML VIAL IV SCH (04:11)
[2017-09-18 06:04] LABS: Glucose,Whole Blood 154 mg/dL (75-99)
[2017-09-18 06:36] LABS: Basophils % (A) 1 %; Eosinophils # (A) 0.2 k/uL (0-0.7); Eosinophils % (A) 3 %; HCT 29.2 % (39.0-53.0); HGB 9.1 gm/dL (13.0-17.5); Hypochromasia Slight; Lymphocytes % (A) 13 %; MCH 27.8 pg (25.0-35.0); MCHC 31.2 g/dL (31.0-37.0); MCV 89.3 fL (80.0-100.0); Mean Platelet Volume 7.6; Monocytes # (A) 0.6 k/uL (0-1.0); Monocytes % (A) 8 %; Neutrophils # (A) 5.5 k/uL (1.3-7.7); Neutrophils % (A) 74 %; Platelet Count 171 k/uL (150-450); RBC 3.27 m/uL (4.30-5.90); RDW 15.5 % (11.5-15.5); WBC 7.5 k/uL (3.8-10.6)
[2017-09-18 06:41] LABS: Albumin 2.7 g/dL (3.5-5.0); Potassium 4.2 mmol/L (3.5-5.1); Total Bilirubin 0.5 mg/dL (0.2-1.3); Total Protein 6.6 g/dL (6.3-8.2)
[2017-09-18] MEDS: IPRATROPIUM-ALBUTEROL 3 ML NEB INHALATION SCH ×4 (07:00→20:26)
[2017-09-18] MEDS: FORMOTEROL FUMARATE 20 MCG/2 ML NEBU INHALATION SCH ×2 (07:00→20:25)
[2017-09-18] MEDS: BUDESONIDE 0.5 MG/2 ML NEBU INHALATION SCH ×2 (07:01→20:25)
--- NOTE | 2017-09-18 08:01 | ECHOF ---
Referral Reason:lv function MEASUREMENTS -------- HEIGHT: 175.3 cm WEIGHT: 65.8 kg BP: 126/69 IVSd: 1.3 cm (0.6 - 1.1) LVIDd: 4.0 cm (3.9 - 5.3) LVPWd: 1.3 cm (0.6 - 1.1) IVSs: 1.5 cm LVIDs: 2.2 cm LVPWs: 1.5 cm FINDINGS -------- Sinus rhythm with extra systolic beats. This was a technically good study. Limited Study for assessment of left ventricular function. The left ventricular size is normal. There is mild concentric left ventricular hypertrophy. Overa ll left ventricular systolic function is low-normal with, an EF between 50 - 55 %. Septal wall karrie on is delayed and consistent with prior cardiac surgery. Basal inferior LV wall motion is hypokinet ic. Echo free space may represent effusion or a pericardial fat pad. CONCLUSIONS -------- 1. Sinus rhythm with extra systolic beats. 2. This was a technically good study. 3. Limited Study for assessment of left ventricular function. 4. The left ventricular size is normal. 5. There is mild concentric left ventricular hypertrophy. [employer]: Gerry Ya RDCS
[2017-09-18] MEDS: PANTOPRAZOLE 40 MG TABLET PO SCH (08:47)
[2017-09-18] MEDS: amLODIPine 5 MG TAB PO SCH ×2 (08:48→20:58)
[2017-09-18] MEDS: hydrALAZINE HCL 50 MG TAB PO SCH ×3 (08:48→17:07)
[2017-09-18] MEDS: ISOSORBIDE MONONITRATE ER 30 MG TAB.ER.24H PO SCH (08:49)
[2017-09-18] MEDS: CLOTRIMAZOLE/BETAMETH 1-0.05% CREAM 45 GM TUBE TOPICAL SCH ×2 (08:49→21:01)
[2017-09-18] MEDS: PARoxetine 10 MG TAB PO SCH (08:50)
[2017-09-18] MEDS: LISINOPRIL 5 MG TAB PO SCH (08:50)
[2017-09-18] MEDS: METOPROLOL TARTRATE 12.5 MG TAB PO SCH ×2 (08:50→20:58)
[2017-09-18] MEDS: SODIUM BICARBONATE TAB 650 MG TAB PO SCH ×2 (08:50→20:58)
[2017-09-18] MEDS: TAMSULOSIN 0.4 MG CAP.ER.24H PO SCH ×2 (08:51→20:58)
--- NOTE | 2017-09-18 08:53 | XR ---
EXAMINATION TYPE: XR chest 2V DATE OF EXAM: 09/18/2017 COMPARISON: 09/16/2017 HISTORY: Aspiration. Concern for pneumonia. TECHNIQUE: Frontal and lateral views of the chest are obtained. FINDINGS: There are persistent multifocal patchy opacities with worsening of aeration in the lung ap ices in comparison to the prior. There is interstitial pulmonary edema and pulmonary vascular congest ion as well as slight increase in degree of the small volume layering right pleural effusion and trac e left pleural effusion. Cardiomegaly and postsurgical changes from prior CABG are noted. Osseous dem ineralization is mild. IMPRESSION: Worsening interstitial edema, pulmonary vascular congestion, small right pleural effusio n and trace left pleural effusion. Persistent multifocal patchy opacities may represent pneumonia sup erimposed on volume overload.
[2017-09-18] MEDS ORDERED: VANCOMYCIN 1,250 MG in SODIUM CHLORIDE 0.9% 250 ML IVPB ONE (09:00)
--- NOTE | 2017-09-18 09:47 | P.PN ---
Subjective Progress Note Date: 09/18/17 Principal diagnosis: Respiratory failure, hypoxic encephalopathy, flush pulmonary edema, CHF, CK D, arrhythmia, bilateral hydronephrosis, CAD post CABG, type 2 diabetes. This is a 71-year-old male one of Dr. Lucas Gallo's patient with past medical history of hypertension, hyperlipidemia, diabetes, COPD, chronic systolic and possible diastolic heart failure, alcoholism, coronary artery disease and underwent CABG 2015 ended up having multiple complications and the multiple rehospitalization for worsening shortness of breath, A. fib and other complication. He has had several admissions over the past 2 months for recurrent metabolic encephalopathy with sepsis of possible aspiration pneumonia and urinary tract infection. He has been followed by Dr. Nicholas, Dr. Louis. Thought changes were possibly related to narcotic use. On recent admission in July patient did require intubation. He is currently residing at [facility] on the care of Dr. Blackman and most recent discharge was on September 05. Patient was brought in by EMS on September 14 to the emergency center due to mental status changes. Patient was treated with increased Lasix and return to the longterm for CHF exacerbation. His vital signs were stable at that time , BUN 36 creatinine 2.08, normal white count. Troponin was negative. Patient return to [facility] emergency center on September 15 due to pulse ox of 80s, generalized weakness and decreased level of consciousness. Patient barely was placed on oxygen by EMS and became much more alert. Temperature max is 100.2, vital signs were otherwise stable. Initial pulse ox was 89%. EKG was atrial fibrillation controlled rate with T-wave inversion in the inferior leads. Patient was admitted to the selective care unit and consult placed with cardiology and pulmonary medicine. Patient's mentation appears to be back to his baseline. He is more alert and interactive today is feeling little bit better slightly decreased shortness of breath compared to before. Patient be seen cardiology still on diuretics whether can benefit from any further testing cardiac-hardwick are not is to be determined. Also patient has passed his swallow eval despite having aspiration pneumonia being treated for. 09/18/2017: Patient is doing much better is drinking his coffee this had his breakfast earlier. His microbiology came back positive for MRSA and enterococcus, patient is seen infectious disease was switched from vancomycin to daptomycin. Objective - Vital Signs Vital signs: Vital Signs Temp 97.0 F L 09/18/17 08:00 Pulse 74 09/18/17 08:00 Resp 16 09/18/17 08:00 BP 135/74 09/18/17 08:00 Pulse Ox 92 L 09/18/17 08:00 Intake & Output 09/17/17 09/18/17 09/18/17 18:59 06:59 18:59 Intake Total 910 240 Output Total 625 825 600 Balance 285 825 -360 Weight 66.7 kg Intake: Intake, IV Titration 600 Amount Levofloxacin 750Mg-D5w 150 Pmx 750 mg In Dextrose/ Water 1 150ml.bag @ 100 mls/hr IVPB Q48H [facility] Rx#: [id number] Magnesium Sulfate-D5w Pmx 200 1 gm In Dextrose/Water 1 100ml.bag @ 100 mls/hr IVPB Q1H [facility] Rx#: [id number] Vancomycin 1,250 mg In 250 Sodium Chloride 0.9% 250 ml @ 125 mls/hr IVPB ONCE ONE Rx#:[id number] Oral 310 240 Output: Urine 625 825 600 Uretheral ([place]) 275 600 Other: Voiding Method Indwelling Catheter Indwelling Catheter Indwelling Catheter # Voids 0 - Constitutional General appearance: Present: cooperative, disheveled, no acute distress, thin. Absent: average body habitus, mild distress, morbidly obese, obese, severe distress - EENT Eyes: Present: normal appearance. Absent: abnormal pupil, anicteric sclerae, disc margins sharp, edentulous, EOMI, PERRLA, fundus normal, photophobia, dentition normal, poor dentition, ptosis, scleral icterus ENT: Present: normal oropharynx, pharyngeal erythema. Absent: hard of hearing, hearing grossly normal, NA/AT, other, thrush, tonsillar exudates, tonsillar swelling Ears: bilateral: normal - Neck Neck: Absent: lymphadenopathy, normal ROM, other, rigidity, stridor, thyromegaly Carotids: bilateral: upstroke normal Thyroid: bilateral: normal size - Respiratory Respiratory: right: rales, rhonchi, bilateral: diminished, dullness, wheezing - Cardiovascular Rhythm: regular Heart sounds: normal: S1, S2 Abnormal Heart Sounds: Present: systolic murmur, S3 Gallop - Gastrointestinal General gastrointestinal: Present: decreased bowel sounds, distended, hepatomegaly, normal bowel sounds, splenomegaly. Absent: absent bowel sounds, hyperactive bowel sounds, organomegaly, rigid, scaphoid, soft, tenderness, umbilical hernia, ventral hernia - Integumentary Integumentary: Present: normal, pale, rash. Absent: calor, cellulitis, cyanotic , decreased turgor, flushed, jaundiced, normal turgor, ulcer - Neurologic Neurologic: Present: CNII-XII intact - Musculoskeletal Musculoskeletal: Present: generalized weakness, strength equal bilaterally. Absent: gait normal, right sided weakness, left sided weakness - Psychiatric Psychiatric: Present: A&O x's 3. Absent: appropriate affect, intact judgment & insight - Labs CBC & Chem 7: 09/18/17 05:47 09/18/17 05:47 Labs: Abnormal Lab Results - Last 24 Hours (Table) 09/17/17 09/17/17 09/17/17 Range/Units 16:00 16:48 21:00 RBC (4.30-5.90) m/uL Hgb (13.0-17.5) gm/dL Hct (39.0-53.0) % BUN (9-20) mg/dL Creatinine (0.66-1.25) mg/dL Glucose (74-99) mg/dL POC Glucose (mg/dL) 200 H 177 H (75-99) mg/dL Calcium (8.4-10.2) mg/dL Albumin (3.5-5.0) g/dL Urine Protein 2+ H (Negative) Urine Glucose (UA) Trace H (Negative) Ur Leukocyte Esterase Moderate H (Negative) Urine RBC 8 H (0-5) /hpf Urine WBC 32 H (0-5) /hpf Calcium Oxalate Crystal Rare H (None) /hpf Amorphous Sediment Occasional H (None) /hpf Hyaline Casts 9 H (0-2) /lpf Urine Mucus Rare H (None) /hpf 09/18/17 09/18/17 09/18/17 Range/Units 05:47 05:47 06:03 RBC 3.27 L (4.30-5.90) m/uL Hgb 9.1 L (13.0-17.5) gm/dL Hct 29.2 L (39.0-53.0) % BUN 35 H (9-20) mg/dL Creatinine 2.40 H (0.66-1.25) mg/dL Glucose 148 H (74-99) mg/dL POC Glucose (mg/dL) 154 H (75-99) mg/dL Calcium 8.0 L (8.4-10.2) mg/dL Albumin 2.7 L (3.5-5.0) g/dL Urine Protein (Negative) Urine Glucose (UA) (Negative) Ur Leukocyte Esterase (Negative) Urine RBC (0-5) /hpf Urine WBC (0-5) /hpf Calcium Oxalate Crystal (None) /hpf Amorphous Sediment (None) /hpf Hyaline Casts (0-2) /lpf Urine Mucus (None) /hpf Microbiology - Last 24 Hours (Table) 09/15/17 19:10 Urine Culture - Final Urine,Catheterized Methicillin resist S. aureus Enterococcus faecalis 09/17/17 16:00 Urine Culture - Preliminary Urine,Catheterized 09/15/17 19:10 Blood Culture Gram Stain - Final Blood Blood Culture - Final Methicillin resist S. aureus Assessment and Plan Plan: 1. Acute hypoxic respiratory failure: This time most likely from aspiration pneumonia and diastolic heart failure he been treated for both. For his aspiration pneumonia with infection and culture positive for MRSA and enterococcus patient has been on daptomycin. 2. Hypoxia encephalopathy most likely secondary to low pulse ox. Patient's mentation improved with oxygen therapy. Continue as in #1., Has improved from the last 48 hours. 3. Flash pulmonary edema with acute on chronic systolic heart failure with possible diastolic heart failure secondary to coronary artery disease and angina. Patient recently had Lasix increased after his ER visit. Continue Lasix 40 mg IV every 8 hours. Continue Lopressor 12.5 mg twice daily, might require further cardiac workup. 4.. CKD stage III with recent acute failure secondary to ATN secondary to sepsis. Monitor for renal decompensation . Continue sodium bicarb 650 mg twice daily. 5. Arrhythmia history with prior Nonsustained ventricular tachycardia on 2015 H and was seen by cardiology echocardiogramJuly 2016 showed atrial fibrillation with small pericardial effusion noted ejection fraction 45-50% inferolateral hypokinesis with palpation of LA size over 40. 6. History bilateral hydronephrosis mild, improved from last ultrasound history Phimosis with urinary retention resolved monitor for urinary retention continue tamsulosin 7. CAD post CABG. continue aspirin 81 mg orally once every day, Lipitor 40 mg daily, Lopressor. 8. Diabetes mellitus type II: Continue with NovoLog sliding scale. Patient has been off scheduled insulin due to hypoglycemia. 9. Hypertensive cardiovascular disease. Continue amlodipine 5 mg twice daily, hydralazine 100 mg 3 times daily, lisinopril 5 mg daily, lopressor 12.5 mg twice daily. 10. Hyperlipidemia: Continue statin. 11. Chronic A. fib. Patient is no longer on Coumadin. This may be related to risk of falls. 12. Recurrent depression: Continue Paxil. 13. Seizure history: Has been on Keppra 750 g twice a day with no new seizure activity. 14. Urinary retention with BPH: Patient has chronic Grullon catheter. Continue Flomax. 15. Severe GERD: Will add Protonix 40 mg daily 16. Severe protein calorie malnutrition due to lack of oral intake. Protein supplement. 17. Chronic low back pain. No change. Debility: Continue PTOT and prepare hopefully to go back to [facility] on Tuesday.
--- NOTE | 2017-09-18 10:20 | P.PN ---
Subjective Progress Note Date: 09/18/17 Principal diagnosis: Abnormal chest x-ray Progress note dated 09/18/2017 The patient is again seen today on September 18. He isn't effective care unit. Doing about the same today as he did yesterday. A bit more awake and alert. He denies any worsening shortness of breath cough or chest congestion. Chest x- ray looks a bit worse. CODE STATUS has not yet been addressed as far as I can see. He does need to be addressed. He is on oxygen and maintain saturations in the low to mid 90s. Currently afebrile febrile. He is hemodynamically stable. Blood cultures positive for presumptive MRSA. Urine is positive for presumptive staph aureus and group D enterococcus. He is currently on Zosyn and Levaquin. White count of 7.5 hemoglobin 9.1 hematocrit 29.2 and platelet count was normal. Electrolytes were very good. BUN and creatinine were 35 and 2.40. Blood and urine cultures are consistent with methicillin-resistant staph aureus. Urine was also positive for enterococcus faecalis. Objective - Vital Signs Vital signs: Vital Signs Temp 97.0 F L 09/18/17 08:00 Pulse 74 09/18/17 08:00 Resp 16 09/18/17 08:00 BP 135/74 09/18/17 08:00 Pulse Ox 92 L 09/18/17 08:00 Intake & Output 09/17/17 09/18/17 09/18/17 18:59 06:59 18:59 Intake Total 910 240 Output Total 625 825 600 Balance 285 825 -360 Weight 66.7 kg Intake: Intake, IV Titration 600 Amount Levofloxacin 750Mg-D5w 150 Pmx 750 mg In Dextrose/ Water 1 150ml.bag @ 100 mls/hr IVPB Q48H [facility] Rx#: [id number] Magnesium Sulfate-D5w Pmx 200 1 gm In Dextrose/Water 1 100ml.bag @ 100 mls/hr IVPB Q1H [facility] Rx#: [id number] Vancomycin 1,250 mg In 250 Sodium Chloride 0.9% 250 ml @ 125 mls/hr IVPB ONCE ONE Rx#:[id number] Oral 310 240 Output: Urine 625 825 600 Uretheral (Grullon) 275 600 Other: Voiding Method Indwelling Catheter Indwelling Catheter Indwelling Catheter # Voids 0 - Exam GENERAL EXAM: Frail, cachectic, comfortable in no apparent distress. HEAD: Normocephalic. EYES: Normal reaction of pupils, equal size. NOSE: Clear with pink turbinates. THROAT: No erythema or exudates. NECK: No masses, positive JVD. CHEST: No chest wall deformity. LUNGS: Equal air entry with echoes in the bilateral posterior bases. Rhonchi scattered. CVS: S1 and S2 normal with an audible murmur, irregular rhythm. ABDOMEN: No hepatosplenomegaly, normal bowel sounds, no guarding or rigidity. SPINE: Kyphoscoliosis SKIN: Ecchymosis. CENTRAL NERVOUS SYSTEM: No focal deficits, tone is normal in all 4 extremities. EXTREMITIES: There is no peripheral edema. No clubbing, no cyanosis. Peripheral pulses are intact. - Labs CBC & Chem 7: 09/18/17 05:47 09/18/17 05:47 Labs: Abnormal Lab Results - Last 24 Hours (Table) 09/17/17 09/17/17 09/17/17 Range/Units 16:00 16:48 21:00 RBC (4.30-5.90) m/uL Hgb (13.0-17.5) gm/dL Hct (39.0-53.0) % BUN (9-20) mg/dL Creatinine (0.66-1.25) mg/dL Glucose (74-99) mg/dL POC Glucose (mg/dL) 200 H 177 H (75-99) mg/dL Calcium (8.4-10.2) mg/dL Albumin (3.5-5.0) g/dL Urine Protein 2+ H (Negative) Urine Glucose (UA) Trace H (Negative) Ur Leukocyte Esterase Moderate H (Negative) Urine RBC 8 H (0-5) /hpf Urine WBC 32 H (0-5) /hpf Calcium Oxalate Crystal Rare H (None) /hpf Amorphous Sediment Occasional H (None) /hpf Hyaline Casts 9 H (0-2) /lpf Urine Mucus Rare H (None) /hpf 09/18/17 09/18/17 09/18/17 Range/Units 05:47 05:47 06:03 RBC 3.27 L (4.30-5.90) m/uL Hgb 9.1 L (13.0-17.5) gm/dL Hct 29.2 L (39.0-53.0) % BUN 35 H (9-20) mg/dL Creatinine 2.40 H (0.66-1.25) mg/dL Glucose 148 H (74-99) mg/dL POC Glucose (mg/dL) 154 H (75-99) mg/dL Calcium 8.0 L (8.4-10.2) mg/dL Albumin 2.7 L (3.5-5.0) g/dL Urine Protein (Negative) Urine Glucose (UA) (Negative) Ur Leukocyte Esterase (Negative) Urine RBC (0-5) /hpf Urine WBC (0-5) /hpf Calcium Oxalate Crystal (None) /hpf Amorphous Sediment (None) /hpf Hyaline Casts (0-2) /lpf Urine Mucus (None) /hpf Microbiology - Last 24 Hours (Table) 09/15/17 19:10 Urine Culture - Final Urine,Catheterized Methicillin resist S. aureus Enterococcus faecalis 09/17/17 16:00 Urine Culture - Preliminary Urine,Catheterized 09/15/17 19:10 Blood Culture Gram Stain - Final Blood Blood Culture - Final Methicillin resist S. aureus Assessment and Plan Assessment: Assessment #1 Altered mental status secondary to suspected urinary tract infection. Urine is positive for presumptive staph aureus, group D enterococcus positive bacteremia with presumptive MRSA. #2 Recent discharge for recurrent metabolic encephalopathy and sepsis. #3 Acute on chronic hypoxic respiratory failure secondary to bilateral pleural effusions associated with bibasilar atelectasis/infiltrate. Most likely secondary to acute exacerbation of diastolic congestive heart failure. #4 Acute on chronic renal failure. #5 Anemia of chronic disease. #6 Cachexia with protein calorie malnutrition. #7 History of oxygen dependent chronic obstructive pulmonary disease with chronic tobacco dependence. #8 History of obstructive sleep apnea and not utilizing CPAP in the outpatient setting. #9 Coronary artery disease with previous coronary artery bypass grafting. #10 Atrial fibrillation not on anticoagulants in the outpatient setting. #11 Recent hospitalization for metabolic encephalopathy, sepsis secondary to Streptococcus pneumoniae bacteremia. Required intubation and mechanical ventilatory support. #12 Diabetes mellitus. #13 History of alcoholism. #14 History of hypertension. #15 Hyperlipidemia. #16 Osteoarthritis. #17 Seizure disorder. #18 History of prostate disorder. #19 History of supra pubic catheter. #20 Poor overall functional performance based on the above-mentioned multiple comorbidities. Plan: Plan dated 09/18/2017 The patient's blood and urine were positive for methicillin-resistant staph aureus as well as group D enterococci. Infectious disease doctor recommended daptomycin. The patient clinically is about the same. CODE STATUS really needs to be addressed. His overall prognosis is very poor. Additional recommendations and suggestions are forthcoming. Time with Patient: Less than 30
[2017-09-18 11:40] LABS: Glucose,Whole Blood 168 mg/dL (75-99)
--- NOTE | 2017-09-18 13:32 | PN ---
PROGRESS NOTE This gentleman has history of CAD, prior bypass surgery, congestive heart failure as well as exacerbation of COPD. Clinically, he is doing better. His BUN and creatinine remains elevated, but his breathing is easier. Lungs are clear. I am recommending that we switch him from IV to oral Lasix. Check a BMP in the morning and increase activity. Vital signs are stable. There is JVD of 1 cm. No carotid bruit. S1-S2 heard normally. Short systolic murmur noted. Lungs reveal improved air entry. Lower extremities do not reveal any edema. Echo revealed fairly system preserved systolic function. MMODL / IJN: [id number] /
--- NOTE | 2017-09-18 16:35 | PN ---
PROGRESS NOTE DATE OF SERVICE: 09/18/2017. REASON FOR FOLLOWUP: MRSA urinary tract infection with secondary bacteremia. INTERVAL HISTORY: The patient is afebrile. He is more awake and alert today. He is breathing comfortably. Occasional cough. No chest pain or shortness of breath. No abdominal pain or diarrhea. His Grullon catheter has been changed. EXAMINATION: Blood pressure 113/61, pulse of 91, temperature 97.2. He is 95% on 5 L nasal cannula. General description is an elderly male lying in bed in no distress. Respiratory system: Unlabored breathing. Clear to auscultation anteriorly. Heart S1, S2. Regular rate. Abdomen soft, no tenderness. EXTREMITIES: No edema of feet. LABS: Hemoglobin 9.1, white count 7.5. BUN of 35, creatinine 2.40. Blood culture repeat currently pending. Urine with Enterococcus faecalis and MRSA. Ultrasound of the kidneys no hydronephrosis or nephrolithiasis of either kidney. Renal cortical echogenicity may be related to technique or renal disease. DIAGNOSTIC IMPRESSION AND PLAN: Patient with Methicillin-resistant Staphylococcus aureus bacteremia secondary to catheter associated urinary tract infection. The Grullon has been discontinued. We will wait for the repeat blood culture to be finalized to make sure those are negative before placing midline as the patient needs at least 2 weeks of IV daptomycin from his negative blood cultures. Continue supportive care. MMODL / IJN: [id number] /
[2017-09-18 16:44] LABS: Glucose,Whole Blood 146 mg/dL (75-99)
[2017-09-18] MEDS: MULTIVITAMINS, THERA 1 EACH TAB PO SCH (20:58)
[2017-09-18] MEDS: MONTELUKAST 10 MG TAB PO SCH (20:58)
[2017-09-18] MEDS: POTASSIUM CHLORIDE ER 20 MEQ TAB.ER PO SCH (20:58)
[2017-09-18 21:02] LABS: Glucose,Whole Blood 169 mg/dL (75-99)
[2017-09-19 05:58] LABS: Anisocytosis Slight; Basophils % (A) 1 %; Eosinophils # (A) 0.2 k/uL (0-0.7); Eosinophils % (A) 2 %; HCT 28.6 % (39.0-53.0); HGB 8.8 gm/dL (13.0-17.5); Hypochromasia Slight; Lymphocytes % (A) 12 %; MCH 27.9 pg (25.0-35.0); MCV 90.1 fL (80.0-100.0); Monocytes # (A) 0.6 k/uL (0-1.0); Monocytes % (A) 7 %; Neutrophils % (A) 76 %; Platelet Count 161 k/uL (150-450); RBC 3.17 m/uL (4.30-5.90); RDW 16.5 % (11.5-15.5); WBC 7.9 k/uL (3.8-10.6)
[2017-09-19 06:00] LABS: Glucose,Whole Blood 181 mg/dL (75-99)
[2017-09-19 06:13] LABS: Albumin 2.8 g/dL (3.5-5.0); Calcium 8.1 mg/dL (8.4-10.2); Potassium 4.6 mmol/L (3.5-5.1); Total Bilirubin 0.4 mg/dL (0.2-1.3)
[2017-09-19] MEDS: PANTOPRAZOLE 40 MG TABLET PO SCH (06:13)
[2017-09-19] MEDS: BUDESONIDE 0.5 MG/2 ML NEBU INHALATION SCH ×2 (07:49→20:02)
[2017-09-19] MEDS: FORMOTEROL FUMARATE 20 MCG/2 ML NEBU INHALATION SCH ×2 (07:49→20:02)
[2017-09-19] MEDS: IPRATROPIUM-ALBUTEROL 3 ML NEB INHALATION SCH ×4 (07:49→20:02)
[2017-09-19] MEDS: HEPARIN SODIUM,PORCINE 5,000 UNIT/ML 1 ML VIAL SQ SCH ×2 (09:20→16:59)
[2017-09-19] MEDS: hydrALAZINE HCL 50 MG TAB PO SCH ×3 (09:21→16:59)
[2017-09-19] MEDS: FUROSEMIDE 40 MG TAB PO SCH (09:21)
[2017-09-19] MEDS: amLODIPine 5 MG TAB PO SCH ×2 (09:21→20:30)
[2017-09-19] MEDS: CLOTRIMAZOLE/BETAMETH 1-0.05% CREAM 45 GM TUBE TOPICAL SCH ×2 (09:21→20:30)
[2017-09-19] MEDS: ISOSORBIDE MONONITRATE ER 30 MG TAB.ER.24H PO SCH (09:21)
[2017-09-19] MEDS: METOPROLOL TARTRATE 12.5 MG TAB PO SCH ×2 (09:22→20:29)
[2017-09-19] MEDS: PARoxetine 10 MG TAB PO SCH (09:22)
[2017-09-19] MEDS: SODIUM BICARBONATE TAB 650 MG TAB PO SCH ×2 (09:23→20:30)
[2017-09-19] MEDS: TAMSULOSIN 0.4 MG CAP.ER.24H PO SCH ×2 (09:23→20:30)
--- NOTE | 2017-09-19 10:37 | P.PN ---
Subjective Progress Note Date: 09/19/17 Principal diagnosis: Respiratory failure, hypoxic encephalopathy, flush pulmonary edema, CHF, CK D, arrhythmia, bilateral hydronephrosis, CAD post CABG, type 2 diabetes, UTI and worsening chest x-ray. This is a 71-year-old male one of Dr. Lucas Gallo's patient with past medical history of hypertension, hyperlipidemia, diabetes, COPD, chronic systolic and possible diastolic heart failure, alcoholism, coronary artery disease and underwent CABG 2015 ended up having multiple complications and the multiple rehospitalization for worsening shortness of breath, A. fib and other complication. He has had several admissions over the past 2 months for recurrent metabolic encephalopathy with sepsis of possible aspiration pneumonia and urinary tract infection. He has been followed by Dr. Nicholas, Dr. Louis. Thought changes were possibly related to narcotic use. On recent admission in July patient did require intubation. He is currently residing at [facility] on the care of Dr. Blackman and most recent discharge was on September 05. Patient was brought in by EMS on September 14 to the emergency center due to mental status changes. Patient was treated with increased Lasix and return to the retirement for CHF exacerbation. His vital signs were stable at that time , BUN 36 creatinine 2.08, normal white count. Troponin was negative. Patient return to [facility] emergency center on September 15 due to pulse ox of 80s, generalized weakness and decreased level of consciousness. Patient barely was placed on oxygen by EMS and became much more alert. Temperature max is 100.2, vital signs were otherwise stable. Initial pulse ox was 89%. EKG was atrial fibrillation controlled rate with T-wave inversion in the inferior leads. Patient was admitted to the selective care unit and consult placed with cardiology and pulmonary medicine. Patient's mentation appears to be back to his baseline. He is more alert and interactive today is feeling little bit better slightly decreased shortness of breath compared to before. Patient be seen cardiology still on diuretics whether can benefit from any further testing cardiac-hardwick are not is to be determined. Also patient has passed his swallow eval despite having aspiration pneumonia being treated for. 09/18/2017: Patient is doing much better is drinking his coffee this had his breakfast earlier. His microbiology came back positive for MRSA and enterococcus, patient is seen infectious disease was switched from vancomycin to daptomycin. 09/19: Patient is clinically doing much better surprisingly his chest x-ray came back more positive for low below pneumonia with multi-patchy area in the chest, still treated for UTI and aspiration pneumonia with the same antibiotics. Patient is interacting more and his acute mental status change reverse almost back to its baseline. Objective - Vital Signs Vital signs: Vital Signs Temp 97 F L 09/19/17 09:15 Pulse 74 09/19/17 09:15 Resp 18 09/19/17 09:15 BP 129/74 09/19/17 09:15 Pulse Ox 91 L 09/19/17 09:15 Intake & Output 09/18/17 09/19/17 09/19/17 18:59 06:59 18:59 Intake Total 1210 Output Total 600 700 Balance 610 -700 Weight 69 kg Intake: IV 10 Invasive Line 1 10 Oral 1200 Output: Urine 600 700 Uretheral (Grullon) 600 Other: Voiding Method Indwelling Catheter Indwelling Catheter # Voids 0 # Bowel Movements 0 - Constitutional General appearance: Present: cooperative, disheveled, no acute distress. Absent : average body habitus, mild distress, morbidly obese, obese, severe distress, thin - EENT Eyes: Present: normal appearance. Absent: abnormal pupil, anicteric sclerae, disc margins sharp, edentulous, EOMI, PERRLA, fundus normal, photophobia, dentition normal, poor dentition, ptosis, scleral icterus ENT: Present: hard of hearing, pharyngeal erythema. Absent: hearing grossly normal, NA/AT, normal oropharynx, other, thrush, tonsillar exudates, tonsillar swelling Ears: bilateral: normal - Neck Neck: Present: normal ROM. Absent: lymphadenopathy, other, rigidity, stridor, thyromegaly Carotids: bilateral: upstroke normal, upstroke delayed Thyroid: bilateral: normal size - Respiratory Respiratory: bilateral: CTA, diminished, dullness, rales, rhonchi - Cardiovascular Rhythm: regular Heart sounds: normal: S1, S2 Abnormal Heart Sounds: Present: systolic murmur, S3 Gallop - Gastrointestinal General gastrointestinal: Present: decreased bowel sounds, distended, normal bowel sounds, soft. Absent: absent bowel sounds, hepatomegaly, hyperactive bowel sounds, organomegaly, rigid, scaphoid, splenomegaly, tenderness, umbilical hernia, ventral hernia - Integumentary Integumentary: Present: normal, pale, rash. Absent: calor, cellulitis, cyanotic , decreased turgor, flushed, jaundiced, normal turgor, ulcer - Neurologic Neurologic: Present: CNII-XII intact - Musculoskeletal Musculoskeletal: Present: generalized weakness, strength equal bilaterally. Absent: gait normal, right sided weakness, left sided weakness - Psychiatric Psychiatric: Absent: A&O x's 3, appropriate affect, intact judgment & insight - Labs CBC & Chem 7: 09/19/17 05:29 09/19/17 05:29 Labs: Abnormal Lab Results - Last 24 Hours (Table) 09/18/17 09/18/17 09/18/17 Range/Units 11:37 16:20 21:01 RBC (4.30-5.90) m/uL Hgb (13.0-17.5) gm/dL Hct (39.0-53.0) % RDW (11.5-15.5) % Sodium (137-145) mmol/L BUN (9-20) mg/dL Creatinine (0.66-1.25) mg/dL Glucose (74-99) mg/dL POC Glucose (mg/dL) 168 H 146 H 169 H (75-99) mg/dL Calcium (8.4-10.2) mg/dL Albumin (3.5-5.0) g/dL 09/19/17 09/19/17 09/19/17 Range/Units 05:29 05:29 05:59 RBC 3.17 L (4.30-5.90) m/uL Hgb 8.8 L (13.0-17.5) gm/dL Hct 28.6 L (39.0-53.0) % RDW 16.5 H (11.5-15.5) % Sodium 146 H (137-145) mmol/L BUN 39 H (9-20) mg/dL Creatinine 2.60 H (0.66-1.25) mg/dL Glucose 168 H (74-99) mg/dL POC Glucose (mg/dL) 181 H (75-99) mg/dL Calcium 8.1 L (8.4-10.2) mg/dL Albumin 2.8 L (3.5-5.0) g/dL Microbiology - Last 24 Hours (Table) 09/17/17 16:00 Urine Culture - Final Urine,Catheterized 09/17/17 15:08 Blood Culture - Preliminary Blood No Growth after 24 hours 09/15/17 19:10 Urine Culture - Final Urine,Catheterized Methicillin resist S. aureus Enterococcus faecalis Assessment and Plan Plan: 1. Acute hypoxic respiratory failure: This time most likely from aspiration pneumonia and diastolic heart failure he been treated for both. For his aspiration pneumonia with infection and culture positive for MRSA and enterococcus patient has been on daptomycin. 2. Hypoxia encephalopathy most likely secondary to low pulse ox. Patient's mentation improved with oxygen therapy. Continue as in #1., Has improved from the last 48 hours. 3. Multilobar pneumonia: Seen pulmonary, interpretation of the chest x-ray from last 24 hours might shows slightly but worsening pneumonia on x-ray but clinically has improved. 4.. CKD stage III with recent acute failure secondary to ATN secondary to sepsis. Monitor for renal decompensation . Continue sodium bicarb 650 mg twice daily. 5. Arrhythmia history with prior Nonsustained ventricular tachycardia on 2015 H and was seen by cardiology echocardiogramJuly 2016 showed atrial fibrillation with small pericardial effusion noted ejection fraction 45-50% inferolateral hypokinesis with palpation of LA size over 40. 6. Urinary tract infection with sepsis: Patient remain treated for MRSA and enterococcus by infectious disease continue daptomycin for both patient seems to respond well to it. 7. CAD post CABG. continue aspirin 81 mg orally once every day, Lipitor 40 mg daily, Lopressor. 8. Diabetes mellitus type II: Continue with NovoLog sliding scale. Patient has been off scheduled insulin due to hypoglycemia. 9. Hypertensive cardiovascular disease. Continue amlodipine 5 mg twice daily, hydralazine 100 mg 3 times daily, lisinopril 5 mg daily, lopressor 12.5 mg twice daily. 10. Hyperlipidemia: Continue statin. 11. Chronic A. fib. Patient is no longer on Coumadin. This may be related to risk of falls. 12. Recurrent depression: Continue Paxil. 13. Seizure history: Has been on Keppra 750 g twice a day with no new seizure activity. 14. Urinary retention with BPH: Patient has chronic Grullon catheter. Continue Flomax. 15. Severe GERD: Will add Protonix 40 mg daily 16. Severe protein calorie malnutrition due to lack of oral intake. Protein supplement. 17. Chronic low back pain. No change. Debility: Continue PTOT and prepare hopefully to go back to [facility] on Tuesday.
--- NOTE | 2017-09-19 10:40 | P.PN ---
Subjective Progress Note Date: 09/19/17 Principal diagnosis: Altered mental status secondary to suspected urinary tract infection. This is a 71-year-old gentleman who follows with Dr. Lucas Gallo as his primary care physician. He has multiple chronic medical issues including coronary artery disease with previous coronary artery bypass grafting, atrial fibrillation, diastolic congestive heart failure with preserved left ventricular systolic function and ejection fraction of 50-55%, chronic obstructive pulmonary disease and is a former smoker and is now oxygen dependent , obstructive sleep apnea noncompliant with CPAP, diabetes mellitus, alcoholism , hypertension, hyperlipidemia, osteoarthritis, seizure disorder, prostate disorder, previous suprapubic catheter and multiple he was recently here and discharge in August 2017 for streptococcal pneumonia septicemia. This is his third admission this month. He was brought in again yesterday from the [facility] care facility as he was noted to have altered mental status, oxygen saturations in the 80s, weakness. The patient himself is a very poor historian. Most information is taken from the chart and previous history. His chest x-ray reveals evidence of congestive heart failure and bilateral pleural effusions. ProBNP 7400. Creatinine 2.54. White count 8.1. Hemoglobin 9.4. Urinalysis is pending. He is currently maintaining O2 saturations in the 90s on 5 L/m per nasal cannula. He's been afebrile. Hemodynamically stable. He has been initiated on antibiotics in the form of Zosyn and Levaquin. The patient is seen again today 09/19/2017 in follow-up on the selective care unit. He is currently awake and alert in no acute distress. Resting fairly comfortably in bed. Urine cultures were positive for MRSA and Enterococcus faecalis. Blood cultures positive for MRSA. He remains on daptomycin. He is maintaining O2 saturations in the low 90s on 5 L/m per nasal cannula. He's been afebrile. Hemodynamically stable. White count 7.9. Hemoglobin 8.8. Creatinine 2.60. Objective - Vital Signs Vital signs: Vital Signs Temp 97 F L 09/19/17 09:15 Pulse 74 09/19/17 09:15 Resp 18 09/19/17 09:15 BP 129/74 09/19/17 09:15 Pulse Ox 91 L 09/19/17 09:15 Intake & Output 09/18/17 09/19/17 09/19/17 18:59 06:59 18:59 Intake Total 1210 Output Total 600 700 Balance 610 -700 Weight 69 kg Intake: IV 10 Invasive Line 1 10 Oral 1200 Output: Urine 600 700 Uretheral (Grullon) 600 Other: Voiding Method Indwelling Catheter Indwelling Catheter # Voids 0 # Bowel Movements 0 - Exam GENERAL EXAM: Frail, cachectic, comfortable in no apparent distress. HEAD: Normocephalic. EYES: Normal reaction of pupils, equal size. NOSE: Clear with pink turbinates. THROAT: No erythema or exudates. NECK: No masses, positive JVD. CHEST: No chest wall deformity. LUNGS: Equal air entry with echoes in the bilateral posterior bases. Rhonchi scattered. CVS: S1 and S2 normal with an audible murmur, irregular rhythm. ABDOMEN: No hepatosplenomegaly, normal bowel sounds, no guarding or rigidity. SPINE: Kyphoscoliosis SKIN: Ecchymosis. CENTRAL NERVOUS SYSTEM: No focal deficits, tone is normal in all 4 extremities. EXTREMITIES: There is no peripheral edema. No clubbing, no cyanosis. Peripheral pulses are intact. - Labs CBC & Chem 7: 09/19/17 05:29 09/19/17 05:29 Labs: Abnormal Lab Results - Last 24 Hours (Table) 09/18/17 09/18/17 09/18/17 Range/Units 11:37 16:20 21:01 RBC (4.30-5.90) m/uL Hgb (13.0-17.5) gm/dL Hct (39.0-53.0) % RDW (11.5-15.5) % Sodium (137-145) mmol/L BUN (9-20) mg/dL Creatinine (0.66-1.25) mg/dL Glucose (74-99) mg/dL POC Glucose (mg/dL) 168 H 146 H 169 H (75-99) mg/dL Calcium (8.4-10.2) mg/dL Albumin (3.5-5.0) g/dL 09/19/17 09/19/17 09/19/17 Range/Units 05:29 05:29 05:59 RBC 3.17 L (4.30-5.90) m/uL Hgb 8.8 L (13.0-17.5) gm/dL Hct 28.6 L (39.0-53.0) % RDW 16.5 H (11.5-15.5) % Sodium 146 H (137-145) mmol/L BUN 39 H (9-20) mg/dL Creatinine 2.60 H (0.66-1.25) mg/dL Glucose 168 H (74-99) mg/dL POC Glucose (mg/dL) 181 H (75-99) mg/dL Calcium 8.1 L (8.4-10.2) mg/dL Albumin 2.8 L (3.5-5.0) g/dL Microbiology - Last 24 Hours (Table) 09/17/17 16:00 Urine Culture - Final Urine,Catheterized 09/17/17 15:08 Blood Culture - Preliminary Blood No Growth after 24 hours 09/15/17 19:10 Urine Culture - Final Urine,Catheterized Methicillin resist S. aureus Enterococcus faecalis Assessment and Plan Assessment: Impression: #1 Altered mental status secondary to suspected urinary tract infection. Urine is positive for MRSA and Enterococcus faecalis, positive bacteremia with MRSA. Currently on daptomycin. #2 Recent discharge for recurrent metabolic encephalopathy and sepsis. #3 Acute on chronic hypoxic respiratory failure secondary to bilateral pleural effusions associated with bibasilar atelectasis/infiltrate. Most likely secondary to acute exacerbation of diastolic congestive heart failure. #4 Acute on chronic renal failure. #5 Anemia of chronic disease. #6 Cachexia with protein calorie malnutrition. #7 History of oxygen dependent chronic obstructive pulmonary disease with chronic tobacco dependence. #8 History of obstructive sleep apnea and not utilizing CPAP in the outpatient setting. #9 Coronary artery disease with previous coronary artery bypass grafting. #10 Atrial fibrillation not on anticoagulants in the outpatient setting. #11 Recent hospitalization for metabolic encephalopathy, sepsis secondary to Streptococcus pneumoniae bacteremia. Required intubation and mechanical ventilatory support. #12 Diabetes mellitus. #13 History of alcoholism. #14 History of hypertension. #15 Hyperlipidemia. #16 Osteoarthritis. #17 Seizure disorder. #18 History of prostate disorder. #19 History of supra pubic catheter. #20 Poor overall functional performance based on the above-mentioned multiple comorbidities. Plan: The patient was seen and evaluated by Dr. Baron. Continue with his pulmonary medications. Continue daptomycin. Continue with diuretics. Continue to titrate down the FiO2 and maintaining O2 saturations greater than 90%. We'll continue to follow and make further recommendations based on his clinical status. I, the cosigning physician, performed a history & physical examination of the patient. Lungs sounds with crackles in the bilateral posterior bases. Diminished. Maintaining good O2 saturations in the 90s on 5 liters per minute per nasal cannula.. I discussed the assessment and plan of care with my nurse practitioner, Shruti Thrasher. I attest to the above note as dictated by her.
[2017-09-19 11:43] LABS: Glucose,Whole Blood 152 mg/dL (75-99)
[2017-09-19] MEDS: LISINOPRIL 5 MG TAB PO SCH (11:57)
[2017-09-19] MEDS ORDERED: methylPREDNISolone SOD SUCCI 125 MG/2 ML VIAL IV SCH (12:15)
[2017-09-19] MEDS: methylPREDNISolone SOD SUCCI 125 MG/2 ML VIAL IVP SCH ×2 (13:10→16:59)
--- NOTE | 2017-09-19 16:30 | PN ---
PROGRESS NOTE Mr. Hdez is a gentleman with CAD, prior bypass surgery, diastolic heart failure and COPD. He is clinically doing much better. Breathing easier. Denies chest pain, stable shortness of breath. No palpitations. S1-S2 heard normally. Short systolic murmur noted. Lungs are clear. Abdomen and lower extremity exam unchanged. Vital signs are stable. Plan is to continue current medications and he can be discharged to an extended care facility. I will see the patient as needed. MMODL / IJN: [id number] /
--- NOTE | 2017-09-19 16:54 | PN ---
PROGRESS NOTE DATE OF SERVICE: 09/19/2017 REASON FOR FOLLOWUP: MRSA bacteremia secondary to urinary source. INTERVAL HISTORY: The patient is afebrile. He is currently breathing comfortably. Denies significant chest pain, cough or abdominal pain or diarrhea to me. However, per the PCP the patient's oral intake seems to be very poor, he is hardly eating anything. No diarrhea has been reported. EXAMINATION: Blood pressure is 117/52 with a pulse of 66, temperature is 97, currently 95% on 6 L nasal cannula. GENERAL DESCRIPTION: An elderly male lying in bed in no distress. RESPIRATORY SYSTEM: Unlabored breathing. Coarse breath sounds bilaterally. No wheeze. HEART: S1, S2. Regular rate and rhythm ABDOMEN: No tenderness. EXTREMITIES: No edema of feet. LABS: Hemoglobin is 8.8, white count 7.9, BUN of 39, creatinine 2.60. Blood culture repeat has been negative so far. DIAGNOSTIC IMPRESSION AND PLAN: Patient with MRSA bacteremia, source is likely urine. His Grullon catheter has been changed. Follow up blood cultures has been negative with blood culture coming back negative very quickly that will make an endovascular source to be less likely. He is currently on daptomycin because of borderline kidney function and high risk of nephrotoxicity. Would recommend getting a med line tomorrow so the patient can continue with daptomycin for a total of 2 weeks with negative blood cultures. Continue supportive care. MMODL / IJN: [id number] /
[2017-09-19 16:58] LABS: Glucose,Whole Blood 195 mg/dL (75-99)
[2017-09-19] MEDS: MULTIVITAMINS, THERA 1 EACH TAB PO SCH (20:30)
[2017-09-19] MEDS: MONTELUKAST 10 MG TAB PO SCH (20:30)
[2017-09-19] MEDS: POTASSIUM CHLORIDE ER 20 MEQ TAB.ER PO SCH (20:30)
[2017-09-19 21:12] LABS: Glucose,Whole Blood 217 mg/dL (75-99)
[2017-09-20] MEDS: methylPREDNISolone SOD SUCCI 125 MG/2 ML VIAL IVP SCH ×3 (00:50→11:53)
[2017-09-20] MEDS: HEPARIN SODIUM,PORCINE 5,000 UNIT/ML 1 ML VIAL SQ SCH ×4 (00:50→23:12)
[2017-09-20 06:01] LABS: Anisocytosis Slight; Basophils % (A) 0 %; Eosinophils % (A) 0 %; HCT 28.7 % (39.0-53.0); HGB 8.9 gm/dL (13.0-17.5); Hypochromasia Moderate; Lymphocytes # (A) 0.5 k/uL (1.0-4.8); Lymphocytes % (A) 10 %; MCH 28.2 pg (25.0-35.0); MCHC 30.8 g/dL (31.0-37.0); MCV 91.5 fL (80.0-100.0); Monocytes # (A) 0.1 k/uL (0-1.0); Monocytes % (A) 2 %; Neutrophils # (A) 4.2 k/uL (1.3-7.7); Neutrophils % (A) 87 %; Platelet Count 171 k/uL (150-450); RBC 3.14 m/uL (4.30-5.90); RDW 16.2 % (11.5-15.5); WBC 4.8 k/uL (3.8-10.6)
[2017-09-20 06:06] LABS: Glucose,Whole Blood 230 mg/dL (75-99)
[2017-09-20 06:13] LABS: Albumin 2.9 g/dL (3.5-5.0); Calcium 8.5 mg/dL (8.4-10.2); Potassium 5.4 mmol/L (3.5-5.1); Total Bilirubin 0.5 mg/dL (0.2-1.3); Total Protein 6.9 g/dL (6.3-8.2)
[2017-09-20] MEDS: IPRATROPIUM-ALBUTEROL 3 ML NEB INHALATION SCH ×4 (07:35→20:18)
[2017-09-20] MEDS: FORMOTEROL FUMARATE 20 MCG/2 ML NEBU INHALATION SCH ×2 (07:35→20:18)
[2017-09-20] MEDS: BUDESONIDE 0.5 MG/2 ML NEBU INHALATION SCH ×2 (07:36→20:30)
[2017-09-20] MEDS: PANTOPRAZOLE 40 MG TABLET PO SCH (08:48)
[2017-09-20] MEDS: hydrALAZINE HCL 50 MG TAB PO SCH ×3 (08:48→16:29)
--- NOTE | 2017-09-20 08:53 | P.DS ---
Providers Date of admission: 09/15/17 20:37 Expected date of discharge: 09/21/17 Attending physician: Boom Olguin Consults: 09/16/17 09:27 Consult Physician Routine Consulting Provider: Alex Baron Consult Reason/Comments: chf, aspiration Do you want consulting provider notified?: Yes Consult Physician Routine Consulting Provider: Shreyas Carreno Consult Reason/Comments: chf Do you want consulting provider notified?: Yes 09/17/17 09:13 Consult Physician Routine Consulting Provider: Reggie Louis Consult Reason/Comments: MRSA and positive blood Culture Do you want consulting provider notified?: Yes Primary care physician: Janet Blackman [facility] Hospital Course: This is a 71-year-old male one of Dr. Lucas Gallo's patient with past medical history of hypertension, hyperlipidemia, diabetes, COPD, chronic systolic and possible diastolic heart failure, alcoholism, coronary artery disease and underwent CABG 2015 ended up having multiple complications and the multiple rehospitalization for worsening shortness of breath, A. fib and other complication. He has had several admissions over the past 2 months for recurrent metabolic encephalopathy with sepsis of possible aspiration pneumonia and urinary tract infection. He has been followed by Dr. Nicholas, Dr. Louis. Thought changes were possibly related to narcotic use. On recent admission in July patient did require intubation. He is currently residing at [facility] on the care of Dr. Blackman and most recent discharge was on September 05. Patient was brought in by EMS on September 14 to the emergency center due to mental status changes. Patient was treated with increased Lasix and return to the [place] [facility] for CHF exacerbation. His vital signs were stable at that time , BUN 36 creatinine 2.08, normal white count. Troponin was negative. Patient return to [facility] emergency center on September 15 due to pulse ox of 80s, generalized weakness and decreased level of consciousness. Patient barely was placed on oxygen by EMS and became much more alert. Temperature max is 100.2, vital signs were otherwise stable. Initial pulse ox was 89%. EKG was atrial fibrillation controlled rate with T-wave inversion in the inferior leads. Patient was admitted to the selective care unit and consult placed with cardiology and pulmonary medicine. Patient's mentation appears to be back to his baseline. He is more alert and interactive today is feeling little bit better slightly decreased shortness of breath compared to before. Patient be seen cardiology still on diuretics whether can benefit from any further testing cardiac-hardwick are not is to be determined. Also patient has passed his swallow eval despite having aspiration pneumonia being treated for. 09/18/2017: Patient is doing much better is drinking his coffee this had his breakfast earlier. His microbiology came back positive for MRSA and enterococcus, patient is seen infectious disease was switched from vancomycin to daptomycin. 09/19: Patient is clinically doing much better surprisingly his chest x-ray came back more positive for low below pneumonia with multi-patchy area in the chest, still treated for UTI and aspiration pneumonia with the same antibiotics. Patient is interacting more and his acute mental status change reverse almost back to its baseline. 09/20: Patient has been followed by phone or medicine and cardiology. Cardiology has signed off and following as needed only. Dr. Louis is following for MRSA bacteremia likely urinary tract infection is the source. Grullon catheter has been exchanged. Plan is for patient to be on daptomycin for 2 weeks. Midline is to be placed today. Patient has been afebrile. Pulse ox 95 % on 6 L nasal cannula. Today, BUN 46, creatinine 2.94 potassium 5.4. Hemoglobin is stable at 8.9. Other electrolytes within normal limits and liver function tests within normal limits. Patient was started on Solu-Medrol 60 mg every 6 hours bipolar medicine yesterday. Blood sugars are running in the 200s. Solu-Medrol will be decreased to 40 mg every 8 hours. We'll plan for discharge tomorrow. 09/21: Pulse ox is 97% on 3 L nasal cannula. Renal function is BUN 61 and creatinine 3.65, hemoglobin 8.2. Plan is for renal function to be monitored at the [place] [facility]. Patient denies any difficulty breathing. Patient is drowsy but answers questions appropriately and denies any new complaints. He denies any abdominal pain. No nausea or vomiting. Grullon catheter remains in place. Patient will be discharged today in stable condition back to [facility]. Discharge diagnoses: 1. Acute hypoxic respiratory failure secondary to bilateral pleural effusions with bibasilar atelectasis due to acute on chronic diastolic heart failure. Pulmonary medicine has ruled out pneumonia 2. Hypoxia and metabolic encephalopathy most likely secondary to low pulse ox and infection. 3. Pneumonia was ruled out by pulmonary medicine. 4. Acute kidney injury with CKD stage III with recent acute failure secondary to ATN secondary to sepsis. 5. Arrhythmia history with prior Nonsustained ventricular tachycardia on 2015 H and was seen by cardiology echocardiogramJuly 2016 showed atrial fibrillation with small pericardial effusion noted ejection fraction 45-50% inferolateral hypokinesis with palpation of LA size over 40. 6. Grullon catheter associated urinary tract infection and bacteremia with sepsis 7. CAD post CABG. 8. Diabetes mellitus type II: 9. Hypertensive cardiovascular disease. 10. Hyperlipidemia 11. Chronic A. fib. 12. Recurrent depression 13. Seizure history 14. Urinary retention with BPH: Patient has chronic Grullon catheter. 15. Severe GERD 16. Severe protein calorie malnutrition due to lack of oral intake. 17. Chronic low back pain. Discharge plan: Return to [facility] under the care of Dr. Blackman Impression and plan of care have been directed as dictated by the signing physician. Carly Greene nurse practitioner acting as scribe for signing physician. Patient Condition at Discharge: Good Plan - Discharge Summary Discharge Rx Participant: Yes New Discharge Prescriptions: New DAPTOmycin [Cubicin] 400 mg IVPB Q48H #7 vial Furosemide [Lasix] 40 mg PO DAILY tab predniSONE 0 mg PO DIRECTED #40 tab Continue levETIRAcetam [Keppra] 750 mg PO BID Isosorbide Mononitrate ER [Imdur] 30 mg PO DAILY Atorvastatin [Lipitor] 40 mg PO HS Potassium Chloride ER [K-Dur 20] 20 meq PO HS Montelukast [Singulair] 10 mg PO HS Albuterol Inhaler [Ventolin Hfa Inhaler] 2 puff INHALATION RT-Q6H PRN PRN Reason: Shortness Of Breath Budesonide [Pulmicort] 0.5 mg INHALATION RT-BID Ipratropium-Albuterol Nebulize [Duoneb 0.5 mg-3 mg/3 ml Soln] 3 ml INHALATION RT-QID@08,12,16,20 Nitroglycerin Sl Tabs [Nitrostat] 0.4 mg SUBLINGUAL Q5M PRN PRN Reason: Chest Pain PARoxetine [Paxil] 10 mg PO DAILY tab Sodium Bicarbonate Tab 650 mg PO BID tab hydrALAZINE HCL [Apresoline] 100 mg PO TID@08,12,16 Metoprolol Tartrate [Lopressor] 12.5 mg PO BID Multivitamins, Thera [Multivitamin (formulary)] 1 tab PO HS Lisinopril [Zestril] 5 mg PO DAILY Prostat Sugar Free 30 ml PO BID amLODIPine [Norvasc] 5 mg PO BID #0 tab Formoterol Fumarate [Perforomist] 20 mcg INHALATION RT-BID nebu Clotrimazole/Betamethasone Dip [Lotrisone Cream] 1 applic TOPICAL BID Ipratropium-Albuterol Nebulize [Duoneb 0.5 mg-3 mg/3 ml Soln] 3 ml INHALATION RT-Q6H PRN PRN Reason: Shortness Of Breath Or Wheezing Tamsulosin [Flomax] 0.4 mg PO BID Insulin Aspart [NovoLOG (formulary)] See Protocol SQ ACHS #0 Changed Omeprazole [PriLOSEC] 20 mg PO DAILY #0 Discontinued Moxifloxacin HCl [Avelox] 400 mg PO DAILY #10 tablet Furosemide [Lasix] 80 mg PO BID HYDROcodone/APAP 5-325MG [Bisbee 5-325] 1 tab PO Q8H PRN PRN Reason: Pain Furosemide [Lasix] 80 mg PO Q8HR #10 tablet Discharge Medication List Isosorbide Mononitrate ER [Imdur] 30 mg PO DAILY 04/26/14 [History] levETIRAcetam [Keppra] 750 mg PO BID 04/26/14 [History] Atorvastatin [Lipitor] 40 mg PO HS 06/14/14 [History] Potassium Chloride ER [K-Dur 20] 20 meq PO HS 05/05/16 [History] Montelukast [Singulair] 10 mg PO HS 06/16/16 [History] Albuterol Inhaler [Ventolin Hfa Inhaler] 2 puff INHALATION RT-Q6H PRN 08/11/17 [ History] Budesonide [Pulmicort] 0.5 mg INHALATION RT-BID 08/11/17 [History] Ipratropium-Albuterol Nebulize [Duoneb 0.5 mg-3 mg/3 ml Soln] 3 ml INHALATION RT -QID@08,12,16,20 08/11/17 [History] Nitroglycerin Sl Tabs [Nitrostat] 0.4 mg SUBLINGUAL Q5M PRN 08/11/17 [History] PARoxetine [Paxil] 10 mg PO DAILY tab 08/26/17 [Rx] Sodium Bicarbonate Tab 650 mg PO BID tab 08/26/17 [Rx] Lisinopril [Zestril] 5 mg PO DAILY 08/31/17 [History] Metoprolol Tartrate [Lopressor] 12.5 mg PO BID 08/31/17 [History] Multivitamins, Thera [Multivitamin (formulary)] 1 tab PO HS 08/31/17 [History] Prostat Sugar Free 30 ml PO BID 08/31/17 [History] hydrALAZINE HCL [Apresoline] 100 mg PO TID@08,12,16 08/31/17 [History] Formoterol Fumarate [Perforomist] 20 mcg INHALATION RT-BID nebu 09/02/17 [Rx] amLODIPine [Norvasc] 5 mg PO BID #0 tab 09/02/17 [Rx] Clotrimazole/Betamethasone Dip [Lotrisone Cream] 1 applic TOPICAL BID 09/14/17 [ History] Ipratropium-Albuterol Nebulize [Duoneb 0.5 mg-3 mg/3 ml Soln] 3 ml INHALATION RT -Q6H PRN 09/14/17 [History] Tamsulosin [Flomax] 0.4 mg PO BID 09/14/17 [History] DAPTOmycin [Cubicin] 400 mg IVPB Q48H #7 vial 09/20/17 [Rx] Furosemide [Lasix] 40 mg PO DAILY tab 09/21/17 [Rx] Insulin Aspart [NovoLOG (formulary)] See Protocol SQ ACHS #0 09/21/17 [Rx] Omeprazole [PriLOSEC] 20 mg PO DAILY #0 09/21/17 [Rx] predniSONE 0 mg PO DIRECTED #40 tab 09/21/17 [Rx] Follow up Appointment(s)/Referral(s): Janet Blackman MD [Primary Care Provider] - 1 Week (at [facility]) Ambulatory/Diagnostic Orders: Complete Blood Count w/diff [LAB.AMB] Location: Determined By Patient Comprehensive Metabolic Panel [LAB.AMB] Location: Determined By Patient Magnesium [LAB.AMB] Location: Determined By Patient Activity/Diet/Wound Care/Special Instructions: PH Medi on D/C. Discharge Disposition: TRANSFER TO [facility]
[2017-09-20] MEDS: amLODIPine 5 MG TAB PO SCH ×2 (09:00→20:08)
[2017-09-20] MEDS: FUROSEMIDE 40 MG TAB PO SCH (09:01)
[2017-09-20] MEDS: ISOSORBIDE MONONITRATE ER 30 MG TAB.ER.24H PO SCH (09:01)
[2017-09-20] MEDS ORDERED: HYDROCHLOROTHIAZIDE 25 MG TAB PO STA (09:01)
[2017-09-20] MEDS: LISINOPRIL 5 MG TAB PO SCH (09:02)
[2017-09-20] MEDS: TAMSULOSIN 0.4 MG CAP.ER.24H PO SCH ×2 (09:02→20:08)
[2017-09-20] MEDS: METOPROLOL TARTRATE 12.5 MG TAB PO SCH ×2 (09:02→20:08)
[2017-09-20] MEDS: SODIUM BICARBONATE TAB 650 MG TAB PO SCH ×2 (09:02→20:08)
[2017-09-20] MEDS: PARoxetine 10 MG TAB PO SCH (09:02)
[2017-09-20] MEDS: CLOTRIMAZOLE/BETAMETH 1-0.05% CREAM 45 GM TUBE TOPICAL SCH ×2 (09:22→20:07)
[2017-09-20 11:48] LABS: Glucose,Whole Blood 240 mg/dL (75-99)
--- NOTE | 2017-09-20 12:10 | PN ---
PROGRESS NOTE DATE OF SERVICE: 09/20/2017 REASON FOR FOLLOWUP: MRSA bacteremia secondary to the urinary source. INTERVAL HISTORY: The patient is afebrile. He is currently breathing comfortably, did complain of feeling weak and tired and worn out. No chest pain, no shortness of breath or cough or abdominal pain or reported. PHYSICAL EXAMINATION: Blood pressure 133/67, pulse of 68, temperature is 97.1, he is 97% on 6 L nasal cannula. General description is an elderly male, lying in bed in no distress. RESPIRATORY SYSTEM: Unlabored breathing, clear to auscultation anteriorly. HEART: S1, S2. Regular rate and rhythm. ABDOMEN: Soft, no tenderness. EXTREMITIES: No edema of the feet. LABS: BUN of 46, creatinine is 2.94, white count 4.8. Blood culture repeat 09/17 has been negative. DIAGNOSTIC IMPRESSION AND PLAN: Patient with methicillin-resistant Staphylococcus aureus bacteremia, source is urinary. Repeat blood culture has been negative. Ultrasound of the renal function shows no abnormality should get to midline to continue with daptomycin for q.48 to finish a 2- week course from negative blood cultures, the last one should be 10/02/2017. MMODL / IJN: [id number] /
--- NOTE | 2017-09-20 13:39 | P.PN ---
Subjective Progress Note Date: 09/20/17 This is a 71-year-old male one of Dr. Lucas Gallo's patient with past medical history of hypertension, hyperlipidemia, diabetes, COPD, chronic systolic and possible diastolic heart failure, alcoholism, coronary artery disease and underwent CABG 2015 ended up having multiple complications and the multiple rehospitalization for worsening shortness of breath, A. fib and other complication. He has had several admissions over the past 2 months for recurrent metabolic encephalopathy with sepsis of possible aspiration pneumonia and urinary tract infection. He has been followed by Dr. Nicholas, Dr. Louis. Thought changes were possibly related to narcotic use. On recent admission in July patient did require intubation. He is currently residing at [facility] on the care of Dr. Blackman and most recent discharge was on September 05. Patient was brought in by EMS on September 14 to the emergency center due to mental status changes. Patient was treated with increased Lasix and return to the residential for CHF exacerbation. His vital signs were stable at that time , BUN 36 creatinine 2.08, normal white count. Troponin was negative. Patient return to [facility] emergency center on September 15 due to pulse ox of 80s, generalized weakness and decreased level of consciousness. Patient barely was placed on oxygen by EMS and became much more alert. Temperature max is 100.2, vital signs were otherwise stable. Initial pulse ox was 89%. EKG was atrial fibrillation controlled rate with T-wave inversion in the inferior leads. Patient was admitted to the selective care unit and consult placed with cardiology and pulmonary medicine. Patient's mentation appears to be back to his baseline. He is more alert and interactive today is feeling little bit better slightly decreased shortness of breath compared to before. Patient be seen cardiology still on diuretics whether can benefit from any further testing cardiac-hardwick are not is to be determined. Also patient has passed his swallow eval despite having aspiration pneumonia being treated for. 09/18/2017: Patient is doing much better is drinking his coffee this had his breakfast earlier. His microbiology came back positive for MRSA and enterococcus, patient is seen infectious disease was switched from vancomycin to daptomycin. 09/19: Patient is clinically doing much better surprisingly his chest x-ray came back more positive for low below pneumonia with multi-patchy area in the chest, still treated for UTI and aspiration pneumonia with the same antibiotics. Patient is interacting more and his acute mental status change reverse almost back to its baseline. 09/20: Patient has been followed by phone or medicine and cardiology. Cardiology has signed off and following as needed only. Dr. Louis is following for MRSA bacteremia likely urinary tract infection is the source. Grullon catheter has been exchanged. Plan is for patient to be on daptomycin for 2 weeks. Midline is to be placed today. Patient has been afebrile. Pulse ox 95 % on 6 L nasal cannula. Today, BUN 46, creatinine 2.94 potassium 5.4. Hemoglobin is stable at 8.9. Other electrolytes within normal limits and liver function tests within normal limits. Patient was started on Solu-Medrol 60 mg every 6 hours bipolar medicine yesterday. Blood sugars are running in the 200s.Solu-Medrol will be decreased to 40 mg every 8 hours. We'll plan for discharge tomorrow. Objective - Vital Signs Vital signs: Vital Signs Temp 97.6 F 09/20/17 11:15 Pulse 72 09/20/17 11:23 Resp 20 09/20/17 11:15 BP 141/74 09/20/17 11:15 Pulse Ox 96 09/20/17 11:15 Intake & Output 09/19/17 09/20/17 09/20/17 18:59 06:59 18:59 Intake Total 210 0 Output Total 600 350 Balance -390 -350 0 Weight 68.5 kg Intake: Oral 210 0 Output: Urine 600 350 Uretheral (Grullon) 200 Other: Voiding Method Indwelling Catheter Indwelling Catheter Indwelling Catheter # Voids 0 # Bowel Movements 0 0 - Exam General appearance: Present: cooperative, disheveled, no acute distress. Absent : average body habitus, mild distress, morbidly obese, obese, severe distress, thin - EENT Eyes: Present: normal appearance. Absent: abnormal pupil, anicteric sclerae, disc margins sharp, edentulous, EOMI, PERRLA, fundus normal, photophobia, dentition normal, poor dentition, ptosis, scleral icterus ENT: Present: hard of hearing, pharyngeal erythema. Absent: hearing grossly normal, NA/AT, normal oropharynx, other, thrush, tonsillar exudates, tonsillar swelling Ears: bilateral: normal - Neck Neck: Present: normal ROM. Absent: lymphadenopathy, other, rigidity, stridor, thyromegaly Carotids: bilateral: upstroke normal, upstroke delayed Thyroid: bilateral: normal size - Respiratory Respiratory: bilateral: CTA, diminished, dullness, rales, rhonchi - Cardiovascular Rhythm: regular Heart sounds: normal: S1, S2 Abnormal Heart Sounds: Present: systolic murmur, S3 Gallop - Gastrointestinal General gastrointestinal: Present: decreased bowel sounds, distended, normal bowel sounds, soft. Absent: absent bowel sounds, hepatomegaly, hyperactive bowel sounds, organomegaly, rigid, scaphoid, splenomegaly, tenderness, umbilical hernia, ventral hernia - Integumentary Integumentary: Present: normal, pale, rash. Absent: calor, cellulitis, cyanotic , decreased turgor, flushed, jaundiced, normal turgor, ulcer - Neurologic Neurologic: Present: CNII-XII intact - Musculoskeletal Musculoskeletal: Present: generalized weakness, strength equal bilaterally. Absent: gait normal, right sided weakness, left sided weakness - Psychiatric Psychiatric: Absent: A&O x's 3, appropriate affect, intact judgment & insight - Labs CBC & Chem 7: 09/20/17 00:00 09/20/17 05:18 Labs: Abnormal Lab Results - Last 24 Hours (Table) 09/19/17 09/19/17 09/20/17 Range/Units 16:42 21:10 00:00 RBC 3.14 L (4.30-5.90) m/uL Hgb 8.9 L (13.0-17.5) gm/dL Hct 28.7 L (39.0-53.0) % MCHC 30.8 L (31.0-37.0) g/dL RDW 16.2 H (11.5-15.5) % Lymphocytes # 0.5 L (1.0-4.8) k/uL Potassium (3.5-5.1) mmol/L BUN (9-20) mg/dL Creatinine (0.66-1.25) mg/dL Glucose (74-99) mg/dL POC Glucose (mg/dL) 195 H 217 H (75-99) mg/dL Albumin (3.5-5.0) g/dL 09/20/17 09/20/17 09/20/17 Range/Units 05:18 06:05 11:47 RBC (4.30-5.90) m/uL Hgb (13.0-17.5) gm/dL Hct (39.0-53.0) % MCHC (31.0-37.0) g/dL RDW (11.5-15.5) % Lymphocytes # (1.0-4.8) k/uL Potassium 5.4 H (3.5-5.1) mmol/L BUN 46 H (9-20) mg/dL Creatinine 2.94 H (0.66-1.25) mg/dL Glucose 212 H (74-99) mg/dL POC Glucose (mg/dL) 230 H 240 H (75-99) mg/dL Albumin 2.9 L (3.5-5.0) g/dL Microbiology - Last 24 Hours (Table) 09/17/17 15:08 Blood Culture - Preliminary Blood No Growth after 48 hours Assessment and Plan Plan: 1. Acute hypoxic respiratory failure secondary to bilateral pleural effusions with bibasilar atelectasis due to acute on chronic diastolic heart failure. Pulmonary medicine has ruled out pneumonia. 2. Hypoxia encephalopathy most likely secondary to low pulse ox. Patient's mentation improved with oxygen therapy. Continue as in #1., Has improved from the last 48 hours. 3. pneumonia ruled out by pulmonary medicine. 4. CKD stage III with recent acute failure secondary to ATN secondary to sepsis. Monitor for renal decompensation . Continue sodium bicarb 650 mg twice daily. 5. Arrhythmia history with prior Nonsustained ventricular tachycardia on 2015 H and was seen by cardiology echocardiogramJuly 2016 showed atrial fibrillation with small pericardial effusion noted ejection fraction 45-50% inferolateral hypokinesis with palpation of LA size over 40. 6. MRSA Urinary tract infection with sepsisand bacteremia: Dr. Louis recommends daptomycin for 2 weeks. 7. CAD post CABG. continue aspirin 81 mg orally once every day, Lipitor 40 mg daily, Lopressor. 8. Diabetes mellitus type II: Continue with NovoLog sliding scale. Patient has been off scheduled insulin due to hypoglycemia. 9. Hypertensive cardiovascular disease. Continue amlodipine 5 mg twice daily, hydralazine 100 mg 3 times daily, lisinopril 5 mg daily, lopressor 12.5 mg twice daily. 10. Hyperlipidemia: Continue statin. 11. Chronic A. fib. Patient is no longer on Coumadin. This may be related to risk of falls. 12. Recurrent depression: Continue Paxil. 13. Seizure history: Has been on Keppra 750 g twice a day with no new seizure activity. 14. Urinary retention with BPH: Patient has chronic Grullon catheter. Continue Flomax. 15. Severe GERD: Will add Protonix 40 mg daily 16. Severe protein calorie malnutrition due to lack of oral intake. Protein supplement. 17. Chronic low back pain. No change. Discharge plan: [facility] on Tuesday Impression and plan of care have been directed as dictated by the signing physician. Carly Greene nurse practitioner acting as scribe for signing physician.
--- NOTE | 2017-09-20 16:21 | P.PN ---
Subjective Progress Note Date: 09/20/17 Principal diagnosis: Altered Mental status secondary to suspected urinary tract infection This is a 71-year-old gentleman who follows with Dr. Lucas Gallo as his primary care physician. He has multiple chronic medical issues including coronary artery disease with previous coronary artery bypass grafting, atrial fibrillation, diastolic congestive heart failure with preserved left ventricular systolic function and ejection fraction of 50-55%, chronic obstructive pulmonary disease and is a former smoker and is now oxygen dependent , obstructive sleep apnea noncompliant with CPAP, diabetes mellitus, alcoholism , hypertension, hyperlipidemia, osteoarthritis, seizure disorder, prostate disorder, previous suprapubic catheter and multiple he was recently here and discharge in August 2017 for streptococcal pneumonia septicemia. This is his third admission this month. He was brought in again yesterday from the [facility] care facility as he was noted to have altered mental status, oxygen saturations in the 80s, weakness. The patient himself is a very poor historian. Most information is taken from the chart and previous history. His chest x-ray reveals evidence of congestive heart failure and bilateral pleural effusions. ProBNP 7400. Creatinine 2.54. White count 8.1. Hemoglobin 9.4. Urinalysis is pending. He is currently maintaining O2 saturations in the 90s on 5 L/m per nasal cannula. He's been afebrile. Hemodynamically stable. He has been initiated on antibiotics in the form of Zosyn and Levaquin. The patient is seen again today 09/19/2017 in follow-up on the selective care unit. He is currently awake and alert in no acute distress. Resting fairly comfortably in bed. Urine cultures were positive for MRSA and Enterococcus faecalis. Blood cultures positive for MRSA. He remains on daptomycin. He is maintaining O2 saturations in the low 90s on 5 L/m per nasal cannula. He's been afebrile. Hemodynamically stable. White count 7.9. Hemoglobin 8.8. Creatinine 2.60. On 09/20/2017 patient seen again in follow-up on selective care unit. He remains somewhat confused, but in no acute distress. Denies any shortness of breath, denies any chest pain, denies any fever or chills. Urine cultures were positive for MRSA and Enterococcus faecalis, blood cultures were positive for MRSA, patient is on IV daptomycin. This morning's blood work showed a serum potassium of 5.4, and worsening renal profile with BUN of 46, creatinine is 2.94. Patient remains on oral Lasix, one dose of hydrochlorothiazide was given. Remains on lisinopril at 5 mg by mouth daily. He had a large bowel movement, [place] is in place, patient is incontinent of stools. No new chest x- rays today, on 5 L per nasal cannula patient's pulse ox is 96%, lung sounds are diminished to auscultation, no rhonchi or wheezes noted. Patient is afebrile. Respirations are even and nonlabored. Discharge planning is in progress for possible discharge to subacute rehab tomorrow. Objective - Vital Signs Vital signs: Vital Signs Temp 97.6 F 09/20/17 11:15 Pulse 72 09/20/17 11:23 Resp 20 09/20/17 11:15 BP 141/74 09/20/17 11:15 Pulse Ox 96 09/20/17 11:15 Intake & Output 09/19/17 09/20/17 09/20/17 18:59 06:59 18:59 Intake Total 210 0 Output Total 600 350 Balance -390 -350 0 Weight 68.5 kg Intake: Oral 210 0 Output: Urine 600 350 Uretheral (Grullon) 200 Other: Voiding Method Indwelling Catheter Indwelling Catheter Indwelling Catheter # Voids 0 # Bowel Movements 0 0 - Exam GENERAL EXAM: Frail, cachectic, comfortable in no apparent distress. HEAD: Normocephalic. EYES: Normal reaction of pupils, equal size. NOSE: Clear with pink turbinates. THROAT: No erythema or exudates. NECK: No masses, positive JVD. CHEST: No chest wall deformity. LUNGS: Clear, diminished at the bases, no rhonchi or wheezes noted CVS: S1 and S2 normal with an audible murmur, irregular rhythm. ABDOMEN: No hepatosplenomegaly, normal bowel sounds, no guarding or rigidity. SPINE: Kyphoscoliosis SKIN: Ecchymosis. CENTRAL NERVOUS SYSTEM: No focal deficits, tone is normal in all 4 extremities. EXTREMITIES: There is no peripheral edema. No clubbing, no cyanosis. Peripheral pulses are intact. - Labs CBC & Chem 7: 09/20/17 00:00 09/20/17 05:18 Labs: Abnormal Lab Results - Last 24 Hours (Table) 09/19/17 09/19/17 09/20/17 Range/Units 16:42 21:10 00:00 RBC 3.14 L (4.30-5.90) m/uL Hgb 8.9 L (13.0-17.5) gm/dL Hct 28.7 L (39.0-53.0) % MCHC 30.8 L (31.0-37.0) g/dL RDW 16.2 H (11.5-15.5) % Lymphocytes # 0.5 L (1.0-4.8) k/uL Potassium (3.5-5.1) mmol/L BUN (9-20) mg/dL Creatinine (0.66-1.25) mg/dL Glucose (74-99) mg/dL POC Glucose (mg/dL) 195 H 217 H (75-99) mg/dL Albumin (3.5-5.0) g/dL 09/20/17 09/20/17 09/20/17 Range/Units 05:18 06:05 11:47 RBC (4.30-5.90) m/uL Hgb (13.0-17.5) gm/dL Hct (39.0-53.0) % MCHC (31.0-37.0) g/dL RDW (11.5-15.5) % Lymphocytes # (1.0-4.8) k/uL Potassium 5.4 H (3.5-5.1) mmol/L BUN 46 H (9-20) mg/dL Creatinine 2.94 H (0.66-1.25) mg/dL Glucose 212 H (74-99) mg/dL POC Glucose (mg/dL) 230 H 240 H (75-99) mg/dL Albumin 2.9 L (3.5-5.0) g/dL Microbiology - Last 24 Hours (Table) 09/17/17 15:08 Blood Culture - Preliminary Blood No Growth after 48 hours Assessment and Plan Plan: Assessment: #1 Altered mental status secondary to suspected urinary tract infection. Urine is positive for MRSA and Enterococcus faecalis, positive bacteremia with MRSA. Currently on daptomycin. #2 Recent discharge for recurrent metabolic encephalopathy and sepsis. #3 Acute on chronic hypoxic respiratory failure secondary to bilateral pleural effusions associated with bibasilar atelectasis/infiltrate. Most likely secondary to acute exacerbation of diastolic congestive heart failure. #4 Acute on chronic renal failure. #5 Anemia of chronic disease. #6 Cachexia with protein calorie malnutrition. #7 History of oxygen dependent chronic obstructive pulmonary disease with chronic tobacco dependence. #8 History of obstructive sleep apnea and not utilizing CPAP in the outpatient setting. #9 Coronary artery disease with previous coronary artery bypass grafting. #10 Atrial fibrillation not on anticoagulants in the outpatient setting. #11 Recent hospitalization for metabolic encephalopathy, sepsis secondary to Streptococcus pneumoniae bacteremia. Required intubation and mechanical ventilatory support. #12 Diabetes mellitus. #13 History of alcoholism. #14 History of hypertension. #15 Hyperlipidemia. #16 Osteoarthritis. #17 Seizure disorder. #18 History of prostate disorder. #19 History of supra pubic catheter. #20 Poor overall functional performance based on the above-mentioned multiple comorbidities. Plan: Continue weaning FiO2, decrease Solu-Medrol down to 40 mg every 8 hours, continue nebulized treatments, oral diuretics, maintain aspiration precautions. Continue with current antibiotic coverage. We'll repeat a chest x-ray in the morning he I performed a history & physical examination of the patient and discussed their management with my nurse practitioner, Corinne Kee. I reviewed the nurse practitioner's note and agree with the documented findings and plan of care. Lung sounds are positive for diminished lung sounds. The findings and the impression was discussed with the patient. I attest to the documentation by the nurse practitioner. Time with Patient: Less than 30
[2017-09-20 17:13] LABS: Glucose,Whole Blood 322 mg/dL (75-99)
[2017-09-20] MEDS: methylPREDNISolone SOD SUCCI 40 MG/ML 1 ML VIAL IV SCH (20:07)
[2017-09-20] MEDS: MULTIVITAMINS, THERA 1 EACH TAB PO SCH (20:08)
[2017-09-20] MEDS: MONTELUKAST 10 MG TAB PO SCH (20:08)
[2017-09-20 20:49] LABS: Glucose,Whole Blood 354 mg/dL (75-99)
[2017-09-20] MEDS: INSULIN ASPART 100 UNIT/ML 1 ML 10 ML VIAL SQ SCH (20:57)
[2017-09-21 06:20] LABS: Glucose,Whole Blood 276 mg/dL (75-99)
[2017-09-21] MEDS: INSULIN ASPART 100 UNIT/ML 1 ML 10 ML VIAL SQ SCH ×4 (06:24→20:55)
[2017-09-21] MEDS: PANTOPRAZOLE 40 MG TABLET PO SCH (06:24)
[2017-09-21] MEDS: methylPREDNISolone SOD SUCCI 40 MG/ML 1 ML VIAL IV SCH ×3 (06:24→19:41)
[2017-09-21 06:33] LABS: Anisocytosis Slight; HCT 27.1 % (39.0-53.0); HGB 8.2 gm/dL (13.0-17.5); Hypochromasia Moderate; MCH 27.5 pg (25.0-35.0); MCHC 30.2 g/dL (31.0-37.0); MCV 91.1 fL (80.0-100.0); Mean Platelet Volume 7.8; Platelet Count 180 k/uL (150-450); RBC 2.97 m/uL (4.30-5.90); RDW 16.1 % (11.5-15.5); WBC 5.5 k/uL (3.8-10.6)
[2017-09-21 06:49] LABS: Calcium 8.3 mg/dL (8.4-10.2); Potassium 4.9 mmol/L (3.5-5.1)
[2017-09-21] MEDS: METOPROLOL TARTRATE 12.5 MG TAB PO SCH ×2 (08:25→19:41)
[2017-09-21] MEDS: SODIUM BICARBONATE TAB 650 MG TAB PO SCH ×2 (08:25→19:41)
[2017-09-21] MEDS: hydrALAZINE HCL 50 MG TAB PO SCH ×3 (08:25→17:01)
[2017-09-21] MEDS: IPRATROPIUM-ALBUTEROL 3 ML NEB INHALATION SCH ×4 (08:26→20:38)
[2017-09-21] MEDS: FORMOTEROL FUMARATE 20 MCG/2 ML NEBU INHALATION SCH ×2 (08:26→20:38)
[2017-09-21] MEDS: BUDESONIDE 0.5 MG/2 ML NEBU INHALATION SCH ×2 (08:26→20:37)
[2017-09-21] MEDS: amLODIPine 5 MG TAB PO SCH ×2 (08:26→19:41)
[2017-09-21] MEDS: LISINOPRIL 5 MG TAB PO SCH (08:26)
[2017-09-21] MEDS: FUROSEMIDE 40 MG TAB PO SCH (08:26)
[2017-09-21] MEDS: PARoxetine 10 MG TAB PO SCH (08:26)
[2017-09-21] MEDS: TAMSULOSIN 0.4 MG CAP.ER.24H PO SCH ×2 (08:26→19:41)
[2017-09-21] MEDS: ISOSORBIDE MONONITRATE ER 30 MG TAB.ER.24H PO SCH (08:26)
[2017-09-21] MEDS: HEPARIN SODIUM,PORCINE 5,000 UNIT/ML 1 ML VIAL SQ SCH ×3 (08:32→23:07)
[2017-09-21] MEDS: CLOTRIMAZOLE/BETAMETH 1-0.05% CREAM 45 GM TUBE TOPICAL SCH ×2 (08:32→19:40)
[2017-09-21 11:24] LABS: Glucose,Whole Blood 263 mg/dL (75-99)
--- NOTE | 2017-09-21 13:14 | P.PN ---
Subjective Progress Note Date: 09/21/17 Principal diagnosis: Altered Mental status secondary to suspected urinary tract infection This is a 71-year-old gentleman who follows with Dr. Lucas Gallo as his primary care physician. He has multiple chronic medical issues including coronary artery disease with previous coronary artery bypass grafting, atrial fibrillation, diastolic congestive heart failure with preserved left ventricular systolic function and ejection fraction of 50-55%, chronic obstructive pulmonary disease and is a former smoker and is now oxygen dependent , obstructive sleep apnea noncompliant with CPAP, diabetes mellitus, alcoholism , hypertension, hyperlipidemia, osteoarthritis, seizure disorder, prostate disorder, previous suprapubic catheter and multiple he was recently here and discharge in August 2017 for streptococcal pneumonia septicemia. This is his third admission this month. He was brought in again yesterday from the [facility] care facility as he was noted to have altered mental status, oxygen saturations in the 80s, weakness. The patient himself is a very poor historian. Most information is taken from the chart and previous history. His chest x-ray reveals evidence of congestive heart failure and bilateral pleural effusions. ProBNP 7400. Creatinine 2.54. White count 8.1. Hemoglobin 9.4. Urinalysis is pending. He is currently maintaining O2 saturations in the 90s on 5 L/m per nasal cannula. He's been afebrile. Hemodynamically stable. He has been initiated on antibiotics in the form of Zosyn and Levaquin. The patient is seen again today 09/19/2017 in follow-up on the selective care unit. He is currently awake and alert in no acute distress. Resting fairly comfortably in bed. Urine cultures were positive for MRSA and Enterococcus faecalis. Blood cultures positive for MRSA. He remains on daptomycin. He is maintaining O2 saturations in the low 90s on 5 L/m per nasal cannula. He's been afebrile. Hemodynamically stable. White count 7.9. Hemoglobin 8.8. Creatinine 2.60. On 09/20/2017 patient seen again in follow-up on selective care unit. He remains somewhat confused, but in no acute distress. Denies any shortness of breath, denies any chest pain, denies any fever or chills. Urine cultures were positive for MRSA and Enterococcus faecalis, blood cultures were positive for MRSA, patient is on IV daptomycin. This morning's blood work showed a serum potassium of 5.4, and worsening renal profile with BUN of 46, creatinine is 2.94. Patient remains on oral Lasix, one dose of hydrochlorothiazide was given. Remains on lisinopril at 5 mg by mouth daily. He had a large bowel movement, [place] is in place, patient is incontinent of stools. No new chest x- rays today, on 5 L per nasal cannula patient's pulse ox is 96%, lung sounds are diminished to auscultation, no rhonchi or wheezes noted. Patient is afebrile. Respirations are even and nonlabored. Discharge planning is in progress for possible discharge to subacute rehab tomorrow. On 09/21/2017 patient seen again in follow-up. He is extremely weak and debilitated, therapy has assisted him up in the recliner, and the patient could not tolerate it very long, and requested to go back to bed. His cough is very weak, patient has a hard time holding his head upright, he is awake and alert, and spines appropriately. Patient is being treated with daptomycin for a urinary tract infection, and his urine cultures were positive for MRSA and Enterococcus faecalis. Has been afebrile since 09/15/2017, vital signs are stable, currently on 3 L per nasal cannula with O2 sat 98%. Lung sounds are positive for scattered rhonchi. Patient is scheduled for an insertion of a midline peripheral venous catheter and the plan is for discharge to subacute rehab with daptomycin infusions. Patient will have a repeat chest x-ray done today, remains on oral Lasix, today's lab work has been reviewed, no leukocytosis, actually lites are within normal limits, renal profile continues to worsen. BUN is up to 61 from 46, and creatinine is 3.65 from 2.94. Her potassium is 4.9 today. All patient's long-term prognosis is extremely guarded in view of his severe general medical debility, multiple comorbidities, poor baseline functional status, multiple hospitalizations. Objective - Vital Signs Vital signs: Vital Signs Temp 98.1 F 09/21/17 08:24 Pulse 74 09/21/17 12:10 Resp 16 09/21/17 12:10 BP 102/50 09/21/17 12:10 Pulse Ox 98 09/21/17 12:10 Intake & Output 09/20/17 09/21/1718 18:59 06:59 18:59 Intake Total 100 10 50 Output Total 601 Balance -501 10 50 Weight 67.5 kg 67.5 kg Intake: IV 10 0.9 10 Intake, IV Titration 50 Amount DAPTOmycin 400 mg In 50 Sodium Chloride 0.9% 50 ml @ 100 mls/hr IVPB Q[facility]H [facility] Rx#:[id number] Oral 100 Output: Urine 600 Stool 1 Other: Voiding Method Indwelling Catheter Indwelling Catheter Indwelling Catheter # Voids 0 # Bowel Movements 1 - Exam GENERAL EXAM: Frail, cachectic, pale, and extremely weak and fatigued. HEAD: Normocephalic. EYES: Normal reaction of pupils, equal size. NOSE: Clear with pink turbinates. THROAT: No erythema or exudates. NECK: No masses, positive JVD. CHEST: No chest wall deformity. LUNGS: Scattered rhonchi bilaterally, no wheezes noted. CVS: S1 and S2 normal with an audible murmur, irregular rhythm. ABDOMEN: No hepatosplenomegaly, normal bowel sounds, no guarding or rigidity. SPINE: Kyphoscoliosis SKIN: Ecchymosis. CENTRAL NERVOUS SYSTEM: No focal deficits, tone is normal in all 4 extremities. EXTREMITIES: There is no peripheral edema. No clubbing, no cyanosis. Peripheral pulses are intact. - Labs CBC & Chem 7: 09/21/17 05:43 09/21/17 05:43 Labs: Abnormal Lab Results - Last 24 Hours (Table) 09/20/17 09/20/17 09/20/17 Range/Units 15:29 16:58 20:48 RBC (4.30-5.90) m/uL Hgb (13.0-17.5) gm/dL Hct (39.0-53.0) % MCHC (31.0-37.0) g/dL RDW (11.5-15.5) % Potassium 5.2 H (3.5-5.1) mmol/L BUN (9-20) mg/dL Creatinine (0.66-1.25) mg/dL Glucose (74-99) mg/dL POC Glucose (mg/dL) 322 H 354 H (75-99) mg/dL Calcium (8.4-10.2) mg/dL 09/21/17 09/21/17 09/21/17 Range/Units 05:43 05:43 06:18 RBC 2.97 L (4.30-5.90) m/uL Hgb 8.2 L (13.0-17.5) gm/dL Hct 27.1 L (39.0-53.0) % MCHC 30.2 L (31.0-37.0) g/dL RDW 16.1 H (11.5-15.5) % Potassium (3.5-5.1) mmol/L BUN 61 H (9-20) mg/dL Creatinine 3.65 H (0.66-1.25) mg/dL Glucose 272 H (74-99) mg/dL POC Glucose (mg/dL) 276 H (75-99) mg/dL Calcium 8.3 L (8.4-10.2) mg/dL 09/21/17 Range/Units 11:18 RBC (4.30-5.90) m/uL Hgb (13.0-17.5) gm/dL Hct (39.0-53.0) % MCHC (31.0-37.0) g/dL RDW (11.5-15.5) % Potassium (3.5-5.1) mmol/L BUN (9-20) mg/dL Creatinine (0.66-1.25) mg/dL Glucose (74-99) mg/dL POC Glucose (mg/dL) 263 H (75-99) mg/dL Calcium (8.4-10.2) mg/dL Microbiology - Last 24 Hours (Table) 09/17/17 15:08 Blood Culture - Preliminary Blood No Growth after 72 hours Assessment and Plan Plan: Assessment: #1 Altered mental status secondary to suspected urinary tract infection. Urine is positive for MRSA and Enterococcus faecalis, positive bacteremia with MRSA. Currently on daptomycin. #2 Recent discharge for recurrent metabolic encephalopathy and sepsis. #3 Acute on chronic hypoxic respiratory failure secondary to bilateral pleural effusions associated with bibasilar atelectasis/infiltrate. Most likely secondary to acute exacerbation of diastolic congestive heart failure. #4 Acute on chronic renal failure. #5 Anemia of chronic disease. #6 Cachexia with protein calorie malnutrition. #7 History of oxygen dependent chronic obstructive pulmonary disease with chronic tobacco dependence. #8 History of obstructive sleep apnea and not utilizing CPAP in the outpatient setting. #9 Coronary artery disease with previous coronary artery bypass grafting. #10 Atrial fibrillation not on anticoagulants in the outpatient setting. #11 Recent hospitalization for metabolic encephalopathy, sepsis secondary to Streptococcus pneumoniae bacteremia. Required intubation and mechanical ventilatory support. #12 Diabetes mellitus. #13 History of alcoholism. #14 History of hypertension. #15 Hyperlipidemia. #16 Osteoarthritis. #17 Seizure disorder. #18 History of prostate disorder. #19 History of supra pubic catheter. #20 Poor overall functional performance based on the above-mentioned multiple comorbidities. Plan: FiO2 is down to 3 L per nasal cannula, patient is afebrile, vital signs are stable. Repeat chest x-ray is pending. Overall patient remains stable, although extremely weak and debilitated. Midline venous catheter insertion is scheduled for today, and discharge is pending for transfer to subacute rehab with daptomycin infusions. Overall patient's long-term prognosis is extremely guarded in view of his severe general medical debility, multiple comorbidities, poor baseline functional status, multiple hospitalizations. I performed a history & physical examination of the patient and discussed their management with my nurse practitioner, Corinne Kee. I reviewed the nurse practitioner's note and agree with the documented findings and plan of care. Lung sounds are positive for diminished lung sounds. The findings and the impression was discussed with the patient. I attest to the documentation by the nurse practitioner. Time with Patient: Less than 30
--- NOTE | 2017-09-21 13:29 | XR ---
EXAMINATION TYPE: XR chest 1V portable DATE OF EXAM: 09/21/2017 COMPARISON: NONE INDICATION: Pneumonia, pulmonary edema TECHNIQUE: Single frontal view of the chest is obtained. FINDINGS: The heart size is enlarged. The pulmonary vasculature is prominent. Mild diffuse increased lung markings are present. This more focal in the left lower lobe. Left lower lobe is worsened over the interval. Differential could include atypical pulmonary edema pneumonia and atelectasis. IMPRESSION: 1. Findings compatible with congestive heart failure. 2. Some atypical pulmonary edema versus atelectasis or pneumonia is at the left base. Follow-up is re commended.
--- NOTE | 2017-09-21 15:10 | PN ---
PROGRESS NOTE DATE OF SERVICE: 09/21/2017. REASON FOR FOLLOWUP: MRSA bacteremia secondary to the urinary source. INTERVAL HISTORY: The patient is currently afebrile, has been breathing comfortably. No significant chest pain, shortness of breath, or any cough. No abdominal pain being reported. EXAMINATION: Blood pressure 102/50 with a pulse of 74, temperature is 98.1. He is 98% on 3 L nasal cannula. General description is an elderly male lying in bed in no distress. Respiratory system: Unlabored breathing. Clear to auscultation anteriorly. Heart S1, S2. Regular rate and rhythm. Abdomen soft, no tenderness. LABS: Hemoglobin 8.8, white count 5.5, BUN 51, creatinine is 3.65. DIAGNOSTIC IMPRESSION AND PLAN: Patient with MRSA bacteremia secondary to urinary source. Patient's follow up blood cultures remain negative. Currently on daptomycin because of elevated creatinine that will be continued to finish a 2 week course of therapy. The patient did have an and continued rising of his creatinine and may benefit from a nephrology evaluation. Continue supportive care. MMODL / IJN: [id number] /
[2017-09-21 17:03] LABS: Glucose,Whole Blood 302 mg/dL (75-99)
[2017-09-21] MEDS: MONTELUKAST 10 MG TAB PO SCH (19:41)
[2017-09-21] MEDS: MULTIVITAMINS, THERA 1 EACH TAB PO SCH (19:41)
[2017-09-21 20:43] LABS: Glucose,Whole Blood 348 mg/dL (75-99)
[2017-09-22] MEDS ORDERED: methylPREDNISolone SOD SUCCI 40 MG/ML 1 ML VIAL ONE (04:00)
[2017-09-22 05:50] LABS: Glucose,Whole Blood 321 mg/dL (75-99)
[2017-09-22] MEDS: methylPREDNISolone SOD SUCCI 40 MG/ML 1 ML VIAL IV SCH ×2 (06:12→23:13)
[2017-09-22 06:25] LABS: Calcium 8.3 mg/dL (8.4-10.2); Potassium 4.8 mmol/L (3.5-5.1)
[2017-09-22] MEDS: INSULIN ASPART 100 UNIT/ML 1 ML 10 ML VIAL SQ SCH ×4 (06:46→23:14)
[2017-09-22] MEDS: PANTOPRAZOLE 40 MG TABLET PO SCH (06:46)
[2017-09-22] MEDS: BUDESONIDE 0.5 MG/2 ML NEBU INHALATION SCH ×2 (07:06→20:19)
[2017-09-22] MEDS: IPRATROPIUM-ALBUTEROL 3 ML NEB INHALATION SCH ×4 (07:06→20:19)
[2017-09-22] MEDS: FORMOTEROL FUMARATE 20 MCG/2 ML NEBU INHALATION SCH ×2 (07:06→20:19)
[2017-09-22] MEDS: TAMSULOSIN 0.4 MG CAP.ER.24H PO SCH ×2 (07:46→23:14)
[2017-09-22] MEDS: SODIUM BICARBONATE TAB 650 MG TAB PO SCH ×2 (07:46→23:14)
[2017-09-22] MEDS: ISOSORBIDE MONONITRATE ER 30 MG TAB.ER.24H PO SCH (07:46)
[2017-09-22] MEDS: METOPROLOL TARTRATE 12.5 MG TAB PO SCH ×2 (07:46→23:14)
[2017-09-22] MEDS: PARoxetine 10 MG TAB PO SCH (07:46)
[2017-09-22] MEDS: FUROSEMIDE 40 MG TAB PO SCH (07:47)
[2017-09-22] MEDS: hydrALAZINE HCL 50 MG TAB PO SCH ×3 (07:47→15:19)
[2017-09-22] MEDS: HEPARIN SODIUM,PORCINE 5,000 UNIT/ML 1 ML VIAL SQ SCH ×3 (07:47→23:16)
[2017-09-22] MEDS: amLODIPine 5 MG TAB PO SCH ×2 (07:47→23:14)
[2017-09-22] MEDS: LISINOPRIL 5 MG TAB PO SCH (07:47)
[2017-09-22] MEDS: SODIUM CHLORIDE 0.9% 1,000 ML IV SCH ×2 (08:56→23:16)
[2017-09-22] MEDS ORDERED: methylPREDNISolone SOD SUCCI 40 MG/ML 1 ML VIAL IV SCH (09:00)
[2017-09-22] MEDS: INSULIN DETEMIR 100 UNIT/ML 10 ML VIAL SQ SCH (09:01)
--- NOTE | 2017-09-22 09:09 | P.PN ---
Subjective Progress Note Date: 09/21/17 This is a 71-year-old male one of Dr. Lucas Gallo's patient with past medical history of hypertension, hyperlipidemia, diabetes, COPD, chronic systolic and possible diastolic heart failure, alcoholism, coronary artery disease and underwent CABG 2015 ended up having multiple complications and the multiple rehospitalization for worsening shortness of breath, A. fib and other complication. He has had several admissions over the past 2 months for recurrent metabolic encephalopathy with sepsis of possible aspiration pneumonia and urinary tract infection. He has been followed by Dr. Nicholas, Dr. Louis. Thought changes were possibly related to narcotic use. On recent admission in July patient did require intubation. He is currently residing at [facility] on the care of Dr. Blackman and most recent discharge was on September 05. Patient was brought in by EMS on September 14 to the emergency center due to mental status changes. Patient was treated with increased Lasix and return to the retirement for CHF exacerbation. His vital signs were stable at that time , BUN 36 creatinine 2.08, normal white count. Troponin was negative. Patient return to [facility] emergency center on September 15 due to pulse ox of 80s, generalized weakness and decreased level of consciousness. Patient barely was placed on oxygen by EMS and became much more alert. Temperature max is 100.2, vital signs were otherwise stable. Initial pulse ox was 89%. EKG was atrial fibrillation controlled rate with T-wave inversion in the inferior leads. Patient was admitted to the selective care unit and consult placed with cardiology and pulmonary medicine. Patient's mentation appears to be back to his baseline. He is more alert and interactive today is feeling little bit better slightly decreased shortness of breath compared to before. Patient be seen cardiology still on diuretics whether can benefit from any further testing cardiac-hardwick are not is to be determined. Also patient has passed his swallow eval despite having aspiration pneumonia being treated for. 09/18/2017: Patient is doing much better is drinking his coffee this had his breakfast earlier. His microbiology came back positive for MRSA and enterococcus, patient is seen infectious disease was switched from vancomycin to daptomycin. 09/19: Patient is clinically doing much better surprisingly his chest x-ray came back more positive for low below pneumonia with multi-patchy area in the chest, still treated for UTI and aspiration pneumonia with the same antibiotics. Patient is interacting more and his acute mental status change reverse almost back to its baseline. 09/20: Patient has been followed by phone or medicine and cardiology. Cardiology has signed off and following as needed only. Dr. Louis is following for MRSA bacteremia likely urinary tract infection is the source. Grullon catheter has been exchanged. Plan is for patient to be on daptomycin for 2 weeks. Midline is to be placed today. Patient has been afebrile. Pulse ox 95 % on 6 L nasal cannula. Today, BUN 46, creatinine 2.94 potassium 5.4. Hemoglobin is stable at 8.9. Other electrolytes within normal limits and liver function tests within normal limits. Patient was started on Solu-Medrol 60 mg every 6 hours bipolar medicine yesterday. Blood sugars are running in the 200s.Solu-Medrol will be decreased to 40 mg every 8 hours. We'll plan for discharge tomorrow. 09/21: Pulse ox is 97% on 3 L nasal cannula. Renal function is worsening with BUN 61 and creatinine 3.65, hemoglobin 8.2. Plan is for renal function to be monitored at the retirement. Patient denies any difficulty breathing. Patient is drowsy but answers questions appropriately and denies any new complaints. He denies any abdominal pain. No nausea or vomiting. Grullon catheter remains in place. Plan was for patient to be discharged to [facility] but insurance authorization was still pending. Objective - Vital Signs Vital signs: Vital Signs Temp 98.1 F 09/21/17 08:24 Pulse 66 09/21/17 08:54 Resp 16 09/21/17 08:24 BP 123/56 09/21/17 08:24 Pulse Ox 97 09/21/17 08:24 Intake & Output 09/20/17 09/21/17 09/21/17 18:59 06:59 18:59 Intake Total 100 10 50 Output Total 601 Balance -501 10 50 Weight 67.5 kg 67.5 kg Intake: IV 10 0.9 10 Intake, IV Titration 50 Amount DAPTOmycin 400 mg In 50 Sodium Chloride 0.9% 50 ml @ 100 mls/hr IVPB Q48H [facility] Rx#:[id number] Oral 100 Output: Urine 600 Stool 1 Other: Voiding Method Indwelling Catheter Indwelling Catheter Indwelling Catheter # Voids 0 # Bowel Movements 1 - Exam General appearance: Present: cooperative, disheveled, no acute distress. Absent : average body habitus, mild distress, morbidly obese, obese, severe distress, thin - EENT Eyes: Present: normal appearance. Absent: abnormal pupil, anicteric sclerae, disc margins sharp, edentulous, EOMI, PERRLA, fundus normal, photophobia, dentition normal, poor dentition, ptosis, scleral icterus ENT: Present: hard of hearing, pharyngeal erythema. Absent: hearing grossly normal, NA/AT, normal oropharynx, other, thrush, tonsillar exudates, tonsillar swelling Ears: bilateral: normal - Neck Neck: Present: normal ROM. Absent: lymphadenopathy, other, rigidity, stridor, thyromegaly Carotids: bilateral: upstroke normal, upstroke delayed Thyroid: bilateral: normal size - Respiratory Respiratory: bilateral: CTA, diminished, dullness, rales, rhonchi - Cardiovascular Rhythm: regular Heart sounds: normal: S1, S2 Abnormal Heart Sounds: Present: systolic murmur, S3 Gallop - Gastrointestinal General gastrointestinal: Present: decreased bowel sounds, distended, normal bowel sounds, soft. Absent: absent bowel sounds, hepatomegaly, hyperactive bowel sounds, organomegaly, rigid, scaphoid, splenomegaly, tenderness, umbilical hernia, ventral hernia - Integumentary Integumentary: Present: normal, pale, rash. Absent: calor, cellulitis, cyanotic , decreased turgor, flushed, jaundiced, normal turgor, ulcer - Neurologic Neurologic: Present: CNII-XII intact - Musculoskeletal Musculoskeletal: Present: generalized weakness, strength equal bilaterally. Absent: gait normal, right sided weakness, left sided weakness - Psychiatric Psychiatric: Absent: A&O x's 3, appropriate affect, intact judgment & insight - Labs CBC & Chem 7: 09/21/17 05:43 09/22/17 05:35 Labs: Abnormal Lab Results - Last 24 Hours (Table) 09/20/17 09/20/17 09/20/17 Range/Units 11:47 15:29 16:58 RBC (4.30-5.90) m/uL Hgb (13.0-17.5) gm/dL Hct (39.0-53.0) % MCHC (31.0-37.0) g/dL RDW (11.5-15.5) % Potassium 5.2 H (3.5-5.1) mmol/L BUN (9-20) mg/dL Creatinine (0.66-1.25) mg/dL Glucose (74-99) mg/dL POC Glucose (mg/dL) 240 H 322 H (75-99) mg/dL Calcium (8.4-10.2) mg/dL 09/20/17 09/21/17 09/21/17 Range/Units 20:48 05:43 05:43 RBC 2.97 L (4.30-5.90) m/uL Hgb 8.2 L (13.0-17.5) gm/dL Hct 27.1 L (39.0-53.0) % MCHC 30.2 L (31.0-37.0) g/dL RDW 16.1 H (11.5-15.5) % Potassium (3.5-5.1) mmol/L BUN 61 H (9-20) mg/dL Creatinine 3.65 H (0.66-1.25) mg/dL Glucose 272 H (74-99) mg/dL POC Glucose (mg/dL) 354 H (75-99) mg/dL Calcium 8.3 L (8.4-10.2) mg/dL 09/21/17 Range/Units 06:18 RBC (4.30-5.90) m/uL Hgb (13.0-17.5) gm/dL Hct (39.0-53.0) % MCHC (31.0-37.0) g/dL RDW (11.5-15.5) % Potassium (3.5-5.1) mmol/L BUN (9-20) mg/dL Creatinine (0.66-1.25) mg/dL Glucose (74-99) mg/dL POC Glucose (mg/dL) 276 H (75-99) mg/dL Calcium (8.4-10.2) mg/dL Microbiology - Last 24 Hours (Table) 09/17/17 15:08 Blood Culture - Preliminary Blood No Growth after 72 hours Assessment and Plan Plan: 1. Acute hypoxic respiratory failure secondary to bilateral pleural effusions with bibasilar atelectasis due to acute on chronic diastolic heart failure. Pulmonary medicine has ruled out pneumonia. 2. Hypoxia encephalopathy most likely secondary to low pulse ox. Patient's mentation improved with oxygen therapy. Continue as in #1., Has improved from the last 48 hours. 3. pneumonia ruled out by pulmonary medicine. 4. Acute kidney injury with CKD stage III with recent acute failure secondary to ATN secondary to sepsis. Monitor for renal decompensation . Continue sodium bicarb 650 mg twice daily. 5. Arrhythmia history with prior Nonsustained ventricular tachycardia on 2015 H and was seen by cardiology echocardiogramJuly 2016 showed atrial fibrillation with small pericardial effusion noted ejection fraction 45-50% inferolateral hypokinesis with palpation of LA size over 40. 6. MRSA Urinary tract infection with sepsisand bacteremia: Dr. Louis recommends daptomycin for 2 weeks. 7. CAD post CABG. continue aspirin 81 mg orally once every day, Lipitor 40 mg daily, Lopressor. 8. Diabetes mellitus type II with hyperglycemia secondary to steroids: Continue with NovoLog sliding scale. Patient has been off scheduled insulin due to hypoglycemia. 9. Hypertensive cardiovascular disease. Continue amlodipine 5 mg twice daily, hydralazine 100 mg 3 times daily, lisinopril 5 mg daily, lopressor 12.5 mg twice daily. 10. Hyperlipidemia: Continue statin. 11. Chronic A. fib. Patient is no longer on Coumadin. This may be related to risk of falls. 12. Recurrent depression: Continue Paxil. 13. Seizure history: Has been on Keppra 750 g twice a day with no new seizure activity. 14. Urinary retention with BPH: Patient has chronic Grullon catheter. Continue Flomax. 15. Severe GERD: Will add Protonix 40 mg daily 16. Severe protein calorie malnutrition due to lack of oral intake. Protein supplement. 17. Chronic low back pain. No change. Patient is off [place] Discharge plan: [facility] Impression and plan of care have been directed as dictated by the signing physician. Carly Greene nurse practitioner acting as scribe for signing physician.
--- NOTE | 2017-09-22 09:29 | P.NPCON ---
History of Present Illness - Reason for Consult acute renal failure - History of Present Illness Reason for consultation: Acute kidney injury History of present illness: Patient is a 71-year-old male seen in renal consultation for acute kidney injury. His creatinine in May 2016 was 1.2. Patient was then admitted in July 2017 with sepsis and aspiration pneumonia. During that admission his creatinine did go up to 3.5 and then gradually improved to 1.8 upon discharge to group home. Patient then again presented to the hospital on September 15 due to low oxygen saturations. He initially received IV diuretics and was then maintained on oral diuretics for the last few days. He did receive Lasix 40 mg orally this morning. He is also being treated for daptomycin for MRSA bacteremia as well as UTI with urine culture positive for MRSA and enterococcus. His urine output is documented as 800 mL in the last 24 hours. Oral intake is poor. Patient is not a very reliable historian. Creatinine was 2.54 on admission and is up at 3.99 today. He is now maintained on normal saline at 75 mL an hour. His blood pressure has been in the range of 100s to 130 systolic and 60s to 70s diastolic. He is noted to have diastolic CHF. He is also receiving lisinopril. Renal ultrasound revealed no evidence of hydronephrosis. Serologies from last admission were all negative. Vital signs are stable. General: The patient appeared well nourished and normally developed. HEENT: Head exam is unremarkable. Neck is without jugular venous distension. LUNGS: Lungs are clear to auscultation and percussion. Breath sounds decreased. HEART: Rate and Rhythm are regular. First and second heart sounds normal. No murmurs, rubs or gallops. ABDOMEN: Abdominal exam reveals normal bowel sounds. Non-tender and non- distended. No evidence of peritonitis. EXTREMITITES: No clubbing, cyanosis, or edema. Past Medical History Past Medical History: Atrial Fibrillation, Coronary Artery Disease (CAD), Heart Failure, COPD, Diabetes Mellitus, GERD/Reflux, Hyperlipidemia, Hypertension, Myocardial Infarction (TX), Musculoskeletal Disorder, Osteoarthritis (OA), Pneumonia, Prostate Disorder, Seizure Disorder, Sleep Apnea/CPAP/BIPAP Additional Past Medical History / Comment(s): Pt recently admitted [facility] 08/11/17 with metabolic encephalopathy with sepsis secondary to aspiration pneumonia/UTI and suspected Streptococcus pneumoniae bacteremia. Other HX: Nonsustained Vtach, pneumonias, severe GERD, TIA, Armas's Palsey, turinaty retention, phimosis , bilateral hydronephrosis, funez caths, suprapubic cath in past, chronic UTI'S , CATARACTS bilaterally, GOUT,DOES'NT USE CPAP KIDNEY STONE, BULGING DISCS, O2 3l nc most of the time, TX 11/2013 and seizures with the TX BPH, chronic low back pain, protein calorie malnutrition. Last Myocardial Infarction Date:: 2013 History of Any Multi-Drug Resistant Organisms: MRSA Date of last positivie culture/infection: 09/15/17 MDRO Source:: blood/urine Past Surgical History: Bladder Surgery, Coronary Bypass/CABG, Heart Catheterization Additional Past Surgical History / Comment(s): Cardiac cath with PTCA 12/14/13, CABG 5 vessel 01/02/14, BENIGN TUMOR ON PARATID GLANDS (RT) REMOVED, HAD A SUPRA PUBIC CATH IN PAST THAT GOT INFECTED. Past Anesthesia/Blood Transfusion Reactions: No Reported Reaction Past Psychological History: Depression Additional Psychological History / Comment(s): Pt currently lives at [facility]. He pretty much is in bed or wheelchair. Smoking Status: Current every day smoker Past Alcohol Use History: None Reported Additional Past Alcohol Use History / Comment(s): STARTED SMOKING AT AGE 19 QUIT 2012 (3PPD FOR 10 YEARS THEN DECREASED TO 2 PPD UNTIL HE QUIT). SON STATES HE RESUMED SMOKING ABOUT 6-8 MONTHS AGO. 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 , Past Drug Use History: None Reported - Past Family History Father Family Medical History: Cancer, Dementia, Hyperlipidemia, Hypertension, Myocardial Infarction (TX) Additional Family Medical History / Comment(s): AT AGE 78- Mother Family Medical History: No Reported History, Coronary Artery Disease (CAD), Dementia, Myocardial Infarction (TX) Additional Family Medical History / Comment(s): AT AGE 86 Brother(s) Family Medical History: No Reported History Sister(s) Family Medical History: No Reported History, Rheumatoid Arthritis (RA) Son(s) Family Medical History: No Reported History Daughter(s) Family Medical History: No Reported History Medications and Allergies Home Medications Medication Instructions Recorded Confirmed Type Isosorbide Mononitrate ER [Imdur] 30 mg PO DAILY 04/26/14 09/15/17 History levETIRAcetam [Keppra] 750 mg PO BID 04/26/14 09/15/17 History Atorvastatin [Lipitor] 40 mg PO HS 06/14/14 09/15/17 History Potassium Chloride ER [K-Dur 20] 20 meq PO HS 05/05/16 09/15/17 History Montelukast [Singulair] 10 mg PO HS 06/16/16 09/15/17 History Albuterol Inhaler [Ventolin Hfa 2 puff INHALATION RT-Q6H PRN 08/11/17 09/15/17 History Inhaler] Budesonide [Pulmicort] 0.5 mg INHALATION RT-BID 08/11/17 09/15/17 History Ipratropium-Albuterol Nebulize 3 ml INHALATION RT-QID@08,,,08/11/1709/15 History [Duoneb 0.5 mg-3 mg/3 ml Soln] Nitroglycerin Sl Tabs [Nitrostat] 0.4 mg SUBLINGUAL Q5M PRN 08/11/17 09/15/17 History PARoxetine [Paxil] 10 mg PO DAILY tab 08/26/17 09/15/17 Rx Sodium Bicarbonate Tab 650 mg PO BID tab 08/26/17 09/15/17 Rx Lisinopril [Zestril] 5 mg PO DAILY 08/31/17 09/15/17 History Metoprolol Tartrate [Lopressor] 12.5 mg PO BID 08/31/17 09/15/17 History Multivitamins, Thera [Multivitamin 1 tab PO HS 08/31/17 09/15/17 History (formulary)] Prostat Sugar Free 30 ml PO BID 08/31/17 09/15/17 History hydrALAZINE HCL [Apresoline] 100 mg PO TID@08,12,16 08/31/17 09/15/17 History Formoterol Fumarate [Perforomist] 20 mcg INHALATION RT-BID nebu 09/02/17 Rx amLODIPine [Norvasc] 5 mg PO BID #0 tab 09/02/17 09/15/17 Rx Clotrimazole/Betamethasone Dip 1 applic TOPICAL BID 09/14/17 09/15/17 History [Lotrisone Cream] Ipratropium-Albuterol Nebulize 3 ml INHALATION RT-Q6H PRN 09/14/17 09/15/17 History [Duoneb 0.5 mg-3 mg/3 ml Soln] Tamsulosin [Flomax] 0.4 mg PO BID 09/14/17 09/15/17 History DAPTOmycin [Cubicin] 400 mg IVPB Q48H #7 vial 09/20/17 Rx Furosemide [Lasix] 40 mg PO DAILY tab 09/21/17 Rx Insulin Aspart [NovoLOG See Protocol SQ ACHS #0 09/21/17 09/15/17 Rx (formulary)] Omeprazole [PriLOSEC] 20 mg PO DAILY #0 09/21/17 09/15/17 Rx predniSONE 0 mg PO DIRECTED #40 tab 09/21/17 Rx Allergies Allergy/AdvReac Type Severity Reaction Status Date / Time adhesive AdvReac Unknown Verified 09/15/17 19:34 influenza virus vaccine, AdvReac Nausea & Verified 09/15/17 19:34 specific Vomiting & [Influenza Virus Diarrhea Vacc,Specific] Physical Exam Vitals: Vital Signs Temp Pulse Pulse Resp BP Pulse Ox 09/22/17 07:50 96.7 F L 69 18 125/65 98 09/22/17 07:24 74 09/22/17 07:18 76 09/22/17 07:17 76 09/22/17 07:07 76 09/22/17 04:00 97.7 F 68 16 113/64 93 L 09/21/17 23:37 68 16 09/21/17 23:35 96.9 F L 68 16 114/61 98 09/21/17 21:05 78 09/21/17 20:51 76 09/21/17 20:39 76 09/21/17 19:40 97.2 F L 73 16 115/60 97 09/21/17 17:00 98.4 F 78 16 120/68 100 09/21/17 16:15 72 09/21/17 16:07 72 09/21/17 12:10 74 16 102/50 98 09/21/17 11:54 68 09/21/17 11:42 66 Intake and Output 09/21/17 09/22/17 09/22/17 22:59 06:59 14:59 Intake Total 236 960 Output Total 400 400 1 Balance -164 560 -1 Intake: Oral 236 960 Output: Urine 400 400 Stool 1 Other: Voiding Method Indwelling Catheter Indwelling Catheter Indwelling Catheter Weight 69.5 kg Results - Lab Results Most recent lab results Calcium 8.3 mg/dL (8.4-10.2) L 09/22/17 05:35 Magnesium 1.6 mg/dL (1.6-2.3) 09/16/17 17:37 09/21/17 05:43 09/22/17 05:35 Assessment and Plan Plan: Assessment: 1. Acute kidney injury secondary to ATN secondary to bacteremia/UTI and diuresis. No evidence of hydronephrosis noted on renal ultrasound. Serologies from last month were all negative. 2. MRSA bacteremia. 3. UTI with urine culture positive for MRSA and enterococcus. 4. Anemia. Rule out iron deficiency. 5. Rule out chronic kidney disease. Creatinine in April 2016 was 1.2. Prior to that he was noted to be 0.9 in November 2015. 6. Benign hypertension. Controlled. 7. Insulin-dependent diabetes mellitus. Plan: Continue normal saline at 75 mL an hour. Continue to hold Lasix - it was discontinued this morning. Check iron studies. Avoid nephrotoxic agents and hypotensive episodes. Discontinue lisinopril for now. Hold antihypertensives for systolic blood pressure less than 120. Continue with antibiotics per infectious disease recommendations. Repeat electrolytes in the morning. Thank you for the consultation. I will continue to follow the patient to during his hospital stay.
[2017-09-22] MEDS: CLOTRIMAZOLE/BETAMETH 1-0.05% CREAM 45 GM TUBE TOPICAL SCH ×2 (11:27→23:20)
[2017-09-22 12:35] LABS: Glucose,Whole Blood 316 mg/dL (75-99)
--- NOTE | 2017-09-22 12:46 | P.PN ---
Subjective Progress Note Date: 09/22/17 This is a 71-year-old male one of Dr. Lucas Gallo's patient with past medical history of hypertension, hyperlipidemia, diabetes, COPD, chronic systolic and possible diastolic heart failure, alcoholism, coronary artery disease and underwent CABG 2015 ended up having multiple complications and the multiple rehospitalization for worsening shortness of breath, A. fib and other complication. He has had several admissions over the past 2 months for recurrent metabolic encephalopathy with sepsis of possible aspiration pneumonia and urinary tract infection. He has been followed by Dr. Nicholas, Dr. Louis. Thought changes were possibly related to narcotic use. On recent admission in July patient did require intubation. He is currently residing at [facility] on the care of Dr. Blackman and most recent discharge was on September 05. Patient was brought in by EMS on September 14 to the emergency center due to mental status changes. Patient was treated with increased Lasix and return to the half-way for CHF exacerbation. His vital signs were stable at that time , BUN 36 creatinine 2.08, normal white count. Troponin was negative. Patient return to [facility] emergency center on September 15 due to pulse ox of 80s, generalized weakness and decreased level of consciousness. Patient barely was placed on oxygen by EMS and became much more alert. Temperature max is 100.2, vital signs were otherwise stable. Initial pulse ox was 89%. EKG was atrial fibrillation controlled rate with T-wave inversion in the inferior leads. Patient was admitted to the selective care unit and consult placed with cardiology and pulmonary medicine. Patient's mentation appears to be back to his baseline. He is more alert and interactive today is feeling little bit better slightly decreased shortness of breath compared to before. Patient be seen cardiology still on diuretics whether can benefit from any further testing cardiac-hardwick are not is to be determined. Also patient has passed his swallow eval despite having aspiration pneumonia being treated for. 09/18/2017: Patient is doing much better is drinking his coffee this had his breakfast earlier. His microbiology came back positive for MRSA and enterococcus, patient is seen infectious disease was switched from vancomycin to daptomycin. 09/19: Patient is clinically doing much better surprisingly his chest x-ray came back more positive for low below pneumonia with multi-patchy area in the chest, still treated for UTI and aspiration pneumonia with the same antibiotics. Patient is interacting more and his acute mental status change reverse almost back to its baseline. 09/20: Patient has been followed by phone or medicine and cardiology. Cardiology has signed off and following as needed only. Dr. Louis is following for MRSA bacteremia likely urinary tract infection is the source. Grullon catheter has been exchanged. Plan is for patient to be on daptomycin for 2 weeks. Midline is to be placed today. Patient has been afebrile. Pulse ox 95 % on 6 L nasal cannula. Today, BUN 46, creatinine 2.94 potassium 5.4. Hemoglobin is stable at 8.9. Other electrolytes within normal limits and liver function tests within normal limits. Patient was started on Solu-Medrol 60 mg every 6 hours bipolar medicine yesterday. Blood sugars are running in the 200s.Solu-Medrol will be decreased to 40 mg every 8 hours. We'll plan for discharge tomorrow. 09/21: Pulse ox is 97% on 3 L nasal cannula. Renal function is worsening with BUN 61 and creatinine 3.65, hemoglobin 8.2. Plan is for renal function to be monitored at the half-way. Patient denies any difficulty breathing. Patient is drowsy but answers questions appropriately and denies any new complaints. He denies any abdominal pain. No nausea or vomiting. Grullon catheter remains in place. Plan was for patient to be discharged to [facility] but insurance authorization was still pending. 09/22: Insurance authorization has been obtained but discharge is being held as patient's renal function has continued to climb and he is at a BUN of 75 and creatinine 3.99. Consult added for Dr. Mcbride. Lasix has been discontinued and patient started on IV fluids 0.9 normal saline at 75 mL per hour. Solu- Medrol will be decreased to 40 mg every 12 hours. Blood sugars have been running high for which Levemir 10 units daily added. Patient states that he is not feeling good today. He is not eating or drinking very much. He does have Glucerna. He states he has no appetite. Objective - Vital Signs Vital signs: Vital Signs Temp 96.7 F L 09/22/17 07:50 Pulse 69 09/22/17 07:50 Resp 18 09/22/17 07:50 BP 125/65 09/22/17 07:50 Pulse Ox 98 09/22/17 07:50 Intake & Output 09/21/17 09/22/17 09/22/17 18:59 06:59 18:59 Intake Total 466 960 Output Total 400 400 1 Balance 66 560 -1 Weight 67.5 kg 69.5 kg Intake: Intake, IV Titration 50 Amount DAPTOmycin 400 mg In 50 Sodium Chloride 0.9% 50 ml @ 100 mls/hr IVPB Q48H [facility] Rx#:[id number] Oral [id number] Output: Urine 400 400 Stool 1 Other: Voiding Method Indwelling Catheter Indwelling Catheter Indwelling Catheter - Exam General appearance: Present: cooperative, disheveled, no acute distress. Absent : average body habitus, mild distress, morbidly obese, obese, severe distress, thin - EENT Eyes: Present: normal appearance. Absent: abnormal pupil, anicteric sclerae, disc margins sharp, edentulous, EOMI, PERRLA, fundus normal, photophobia, dentition normal, poor dentition, ptosis, scleral icterus ENT: Present: hard of hearing, pharyngeal erythema. Absent: hearing grossly normal, NA/AT, normal oropharynx, other, thrush, tonsillar exudates, tonsillar swelling Ears: bilateral: normal - Neck Neck: Present: normal ROM. Absent: lymphadenopathy, other, rigidity, stridor, thyromegaly Carotids: bilateral: upstroke normal, upstroke delayed Thyroid: bilateral: normal size - Respiratory Respiratory: bilateral: CTA, diminished, dullness, rales, rhonchi - Cardiovascular Rhythm: regular Heart sounds: normal: S1, S2 Abnormal Heart Sounds: Present: systolic murmur, S3 Gallop - Gastrointestinal General gastrointestinal: Present: decreased bowel sounds, distended, normal bowel sounds, soft. Absent: absent bowel sounds, hepatomegaly, hyperactive bowel sounds, organomegaly, rigid, scaphoid, splenomegaly, tenderness, umbilical hernia, ventral hernia - Integumentary Integumentary: Present: normal, pale, rash. Absent: calor, cellulitis, cyanotic , decreased turgor, flushed, jaundiced, normal turgor, ulcer - Neurologic Neurologic: Present: CNII-XII intact - Musculoskeletal Musculoskeletal: Present: generalized weakness, strength equal bilaterally. Absent: gait normal, right sided weakness, left sided weakness - Psychiatric Psychiatric: Absent: A&O x's 3, appropriate affect, intact judgment & insight - Labs CBC & Chem 7: 05/30/18 05:43 09/22/17 05:35 Labs: Abnormal Lab Results - Last 24 Hours (Table) 09/21/17 09/21/17 09/21/17 Range/Units 11:18 16:38 20:41 BUN (9-20) mg/dL Creatinine (0.66-1.25) mg/dL Glucose (74-99) mg/dL POC Glucose (mg/dL) 263 H 302 H 348 H (75-99) mg/dL Calcium (8.4-10.2) mg/dL 09/22/17 09/22/17 Range/Units 05:35 05:48 BUN 75 H (9-20) mg/dL Creatinine 3.99 H (0.66-1.25) mg/dL Glucose 299 H (74-99) mg/dL POC Glucose (mg/dL) 321 H (75-99) mg/dL Calcium 8.3 L (8.4-10.2) mg/dL Microbiology - Last 24 Hours (Table) 09/17/17 15:08 Blood Culture - Preliminary Blood No Growth after 96 hours Assessment and Plan Plan: 1. Acute hypoxic respiratory failure secondary to bilateral pleural effusions with bibasilar atelectasis due to acute on chronic diastolic heart failure. Pulmonary medicine has ruled out pneumonia. 2. Hypoxia encephalopathy most likely secondary to low pulse ox. Patient's mentation improved with oxygen therapy. Continue as in #1., Has improved from the last 48 hours. 3. Pneumonia ruled out by pulmonary medicine. 4. Acute kidney injury with CKD stage III with recent acute failure secondary to ATN secondary to sepsis. Patient started on IV fluids 0.9 normal saline at 75 mL per hour. Consult with Dr. Mcbride is appreciated. Continue sodium bicarb 650 mg twice daily. 5. Arrhythmia history with prior Nonsustained ventricular tachycardia on 2015 H and was seen by cardiology echocardiogramJuly 2016 showed atrial fibrillation with small pericardial effusion noted ejection fraction 45-50% inferolateral hypokinesis with palpation of LA size over 40. 6. Grullon catheter associated MRSA urinary tract infection and bacteremia with sepsis Dr. Louis recommends daptomycin. Course will be completed on October 04. 7. CAD post CABG. continue aspirin 81 mg orally once every day, Lipitor 40 mg daily, Lopressor. 8. Diabetes mellitus type II with hyperglycemia secondary to steroids: Levemir has been added. Continue with NovoLog sliding scale. Patient has been off scheduled insulin due to hypoglycemia. 9. Hypertensive cardiovascular disease. Continue amlodipine 5 mg twice daily, hydralazine 100 mg 3 times daily, lisinopril 5 mg daily, lopressor 12.5 mg twice daily. 10. Hyperlipidemia: Continue statin. 11. Chronic A. fib. Patient is no longer on Coumadin. This may be related to risk of falls. 12. Recurrent depression: Continue Paxil. 13. Seizure history: Has been on Keppra 750 g twice a day with no new seizure activity. 14. Urinary retention with BPH: Patient has chronic Grullon catheter. Continue Flomax. 15. Severe GERD: Will add Protonix 40 mg daily 16. Severe protein calorie malnutrition due to lack of oral intake. Protein supplement. 17. Chronic low back pain. No change. Patient is off [place] Discharge plan: [facility] on Tuesday Impression and plan of care have been directed as dictated by the signing physician. Carly Greene nurse practitioner acting as scribe for signing physician.
--- NOTE | 2017-09-22 13:59 | XR ---
EXAMINATION TYPE: XR chest 1V DATE OF EXAM: 09/22/2017 COMPARISON: 09/21/2017 HISTORY: Pneumonia TECHNIQUE: Single frontal view of the chest is obtained. FINDINGS: There is improved aeration of the lungs throughout. There remains some patchy opacities an d mild pulmonary vascular congestion in combination with bilateral pleural thickening and right trace pleural effusion. Cardiomegaly and post CABG changes the chest are noted. Osseous structures are terrance ssly intact. IMPRESSION: Improved aeration of the lungs throughout with few patchy opacities remaining favored to relate to pulmonary edema and mild pulmonary vascular congestion as well as trace right pleural effu rajan.
[2017-09-22 17:17] LABS: Glucose,Whole Blood 296 mg/dL (75-99)
[2017-09-22 17:28] LABS: Iron Saturation 45.2 (15.00-50.00)
--- NOTE | 2017-09-22 17:38 | PN ---
PROGRESS NOTE DATE OF SERVICE: 09/22/2017. REASON FOR FOLLOW UP: MRSA bacteremia secondary to the urinary source. INTERVAL HISTORY: The patient is afebrile. He currently denies having any chest pain or shortness of breath or cough. When asked specifically how he is doing, he said "I guess okay". No abdominal pain or any diarrhea reported. EXAMINATION: Blood pressure 119/59, pulse of 70, temperature 97, he is 94% on room air. General description is an elderly male lying in bed in no distress. Respiratory system: Unlabored breathing, clear to auscultation anteriorly. Heart S1, S2. Regular rate and rhythm. Abdomen soft. No tenderness. Extremities: No edema of the feet. LABS: BUN of 75, creatinine 3.99. DIAGNOSTIC IMPRESSION AND PLAN: Patient with MRSA bacteremia secondary to the urinary source currently on daptomycin. He will continue to finished two week course of therapy. Currently seems to have worsening of his kidney function for which nephrology has been consulted. Continue supportive care. MMODL / IJN: [id number] /
[2017-09-22 21:03] LABS: Glucose,Whole Blood 233 mg/dL (75-99)
[2017-09-22] MEDS: MULTIVITAMINS, THERA 1 EACH TAB PO SCH (23:15)
[2017-09-22] MEDS: MONTELUKAST 10 MG TAB PO SCH (23:15)
[2017-09-23 06:27] LABS: Calcium 8.2 mg/dL (8.4-10.2); Potassium 4.7 mmol/L (3.5-5.1)
[2017-09-23 07:04] LABS: Glucose,Whole Blood 268 mg/dL (75-99)
[2017-09-23] MEDS: PANTOPRAZOLE 40 MG TABLET PO SCH (07:09)
[2017-09-23] MEDS: INSULIN ASPART 100 UNIT/ML 1 ML 10 ML VIAL SQ SCH ×4 (07:09→21:04)
[2017-09-23] MEDS: FORMOTEROL FUMARATE 20 MCG/2 ML NEBU INHALATION SCH ×2 (07:32→20:30)
[2017-09-23] MEDS: IPRATROPIUM-ALBUTEROL 3 ML NEB INHALATION SCH ×4 (07:32→20:30)
[2017-09-23] MEDS: BUDESONIDE 0.5 MG/2 ML NEBU INHALATION SCH ×2 (07:33→20:36)
[2017-09-23] MEDS: TAMSULOSIN 0.4 MG CAP.ER.24H PO SCH ×2 (07:40→19:31)
[2017-09-23] MEDS: ISOSORBIDE MONONITRATE ER 30 MG TAB.ER.24H PO SCH (07:40)
[2017-09-23] MEDS: HEPARIN SODIUM,PORCINE 5,000 UNIT/ML 1 ML VIAL SQ SCH ×3 (07:40→23:07)
[2017-09-23] MEDS: amLODIPine 5 MG TAB PO SCH ×2 (07:40→19:30)
[2017-09-23] MEDS: SODIUM BICARBONATE TAB 650 MG TAB PO SCH ×2 (07:41→19:31)
[2017-09-23] MEDS: hydrALAZINE HCL 50 MG TAB PO SCH ×3 (07:41→15:39)
[2017-09-23] MEDS: PARoxetine 10 MG TAB PO SCH (07:41)
[2017-09-23] MEDS: METOPROLOL TARTRATE 12.5 MG TAB PO SCH ×2 (07:41→19:31)
[2017-09-23] MEDS: methylPREDNISolone SOD SUCCI 40 MG/ML 1 ML VIAL IV SCH ×2 (07:42→19:31)
[2017-09-23] MEDS: INSULIN DETEMIR 100 UNIT/ML 10 ML VIAL SQ SCH (07:44)
[2017-09-23] MEDS ORDERED: FUROSEMIDE 10 MG/ML 10 ML VIAL IV STA (07:45)
--- NOTE | 2017-09-23 07:47 | P.PN ---
Subjective Vision is seen in follow-up for acute kidney injury on chronic kidney disease. Patient was admitted in July 2017 with sepsis and aspiration pneumonia and at that time his creatinine went up to 3.5 and then gradually improved to 1.8 upon discharge to group home. Patient presented this admission on September 15 with low oxygen saturations. He received IV diuretics which were discontinued yesterday. He is currently being treated for MRSA bacteremia and UTI. Urine culture positive for MRSA and enterococcus. His urine output is documented as 500 mL in the last 24 hours. He is currently maintained on normal saline at 75 mL an hour. He has history of diastolic CHF. His serologic workup from last admission was negative. Ultrasound reveals no evidence of hydronephrosis. Oral intake is fair. Creatinine is up to 4.4 today. Vital signs are stable. General: The patient appeared well nourished and normally developed. HEENT: Head exam is unremarkable. Neck is without jugular venous distension. LUNGS: Breath sounds decreased. HEART: Rate and Rhythm are regular. First and second heart sounds normal. No murmurs, rubs or gallops. ABDOMEN: Abdominal exam reveals normal bowel sounds. Non-tender and non- distended. No evidence of peritonitis. EXTREMITITES: No clubbing, cyanosis, or edema. Objective - Vital Signs Vital signs: Vital Signs Temp 96.4 F L 09/23/17 04:00 Pulse 72 09/23/17 07:34 Resp 18 09/23/17 04:00 BP 114/59 09/23/17 04:00 Pulse Ox 95 09/23/17 04:00 Intake & Output 09/22/17 09/23/17 09/23/17 18:59 06:59 18:59 Intake Total 500 Output Total 404 103 Balance 96 -103 Weight 70.1 kg Intake: Oral 500 Output: Urine 400 100 Stool 4 3 Other: Voiding Method Indwelling Catheter Indwelling Catheter - Labs CBC & Chem 7: 09/21/17 05:43 09/23/17 05:42 Labs: Abnormal Lab Results - Last 24 Hours (Table) 09/22/17 09/22/17 09/22/17 Range/Units 05:35 12:21 16:57 BUN (9-20) mg/dL Creatinine (0.66-1.25) mg/dL Glucose (74-99) mg/dL POC Glucose (mg/dL) 316 H 296 H (75-99) mg/dL Calcium (8.4-10.2) mg/dL TIBC 177 L (228-460) ug/dL 09/22/17 09/23/17 09/23/17 Range/Units 20:51 05:42 06:50 BUN 83 H* (9-20) mg/dL Creatinine 4.40 H (0.66-1.25) mg/dL Glucose 239 H (74-99) mg/dL POC Glucose (mg/dL) 233 H 268 H (75-99) mg/dL Calcium 8.2 L (8.4-10.2) mg/dL TIBC (228-460) ug/dL Microbiology - Last 24 Hours (Table) 09/17/17 15:08 Blood Culture - Preliminary Blood No Growth after 120 hours Assessment and Plan Plan: Assessment: 1. Acute kidney injury secondary to ATN secondary to bacteremia/UTI and diuresis. No evidence of hydronephrosis noted on renal ultrasound. Serologies from last month were all negative. 2. MRSA bacteremia. 3. UTI with urine culture positive for MRSA and enterococcus. 4. Anemia, iron replete. 5. Rule out chronic kidney disease. Creatinine in April 2016 was 1.2. Prior to that he was noted to be 0.9 in November 2015. 6. Benign hypertension. Controlled. 7. Insulin-dependent diabetes mellitus. Plan: I will decrease rate of normal saline to 50 mL an hour. Lasix 80 mg IV once today. Add Aranesp. Avoid nephrotoxic agents and hypotensive episodes. Lisinopril was discontinued September 22. Hold antihypertensives for systolic blood pressure less than 120. Continue with antibiotics per infectious disease recommendations. Repeat electrolytes in the morning. Check phosphorus level. Continue to assess on day-to-day basis for renal replacement therapy.
[2017-09-23] MEDS: SODIUM CHLORIDE 0.9% 1,000 ML IV SCH (09:03)
[2017-09-23 11:32] LABS: Glucose,Whole Blood 246 mg/dL (75-99)
--- NOTE | 2017-09-23 13:11 | P.PN ---
Subjective Progress Note Date: 09/23/17 This is a 71-year-old male one of Dr. Lucas Gallo's patient with past medical history of hypertension, hyperlipidemia, diabetes, COPD, chronic systolic and possible diastolic heart failure, alcoholism, coronary artery disease and underwent CABG 2015 ended up having multiple complications and the multiple rehospitalization for worsening shortness of breath, A. fib and other complication. He has had several admissions over the past 2 months for recurrent metabolic encephalopathy with sepsis of possible aspiration pneumonia and urinary tract infection. He has been followed by Dr. Nicholas, Dr. Louis. Thought changes were possibly related to narcotic use. On recent admission in July patient did require intubation. He is currently residing at [facility] on the care of Dr. Blackman and most recent discharge was on September 05. Patient was brought in by EMS on September 14 to the emergency center due to mental status changes. Patient was treated with increased Lasix and return to the senior care for CHF exacerbation. His vital signs were stable at that time , BUN 36 creatinine 2.08, normal white count. Troponin was negative. Patient return to [facility] emergency center on September 15 due to pulse ox of 80s, generalized weakness and decreased level of consciousness. Patient barely was placed on oxygen by EMS and became much more alert. Temperature max is 100.2, vital signs were otherwise stable. Initial pulse ox was 89%. EKG was atrial fibrillation controlled rate with T-wave inversion in the inferior leads. Patient was admitted to the selective care unit and consult placed with cardiology and pulmonary medicine. Patient's mentation appears to be back to his baseline. He is more alert and interactive today is feeling little bit better slightly decreased shortness of breath compared to before. Patient be seen cardiology still on diuretics whether can benefit from any further testing cardiac-hardwick are not is to be determined. Also patient has passed his swallow eval despite having aspiration pneumonia being treated for. 09/18/2017: Patient is doing much better is drinking his coffee this had his breakfast earlier. His microbiology came back positive for MRSA and enterococcus, patient is seen infectious disease was switched from vancomycin to daptomycin. 09/19: Patient is clinically doing much better surprisingly his chest x-ray came back more positive for low below pneumonia with multi-patchy area in the chest, still treated for UTI and aspiration pneumonia with the same antibiotics. Patient is interacting more and his acute mental status change reverse almost back to its baseline. 09/20: Patient has been followed by phone or medicine and cardiology. Cardiology has signed off and following as needed only. Dr. Louis is following for MRSA bacteremia likely urinary tract infection is the source. Grullon catheter has been exchanged. Plan is for patient to be on daptomycin for 2 weeks. Midline is to be placed today. Patient has been afebrile. Pulse ox 95 % on 6 L nasal cannula. Today, BUN 46, creatinine 2.94 potassium 5.4. Hemoglobin is stable at 8.9. Other electrolytes within normal limits and liver function tests within normal limits. Patient was started on Solu-Medrol 60 mg every 6 hours bipolar medicine yesterday. Blood sugars are running in the 200s.Solu-Medrol will be decreased to 40 mg every 8 hours. We'll plan for discharge tomorrow. 09/21: Pulse ox is 97% on 3 L nasal cannula. Renal function is worsening with BUN 61 and creatinine 3.65, hemoglobin 8.2. Plan is for renal function to be monitored at the senior care. Patient denies any difficulty breathing. Patient is drowsy but answers questions appropriately and denies any new complaints. He denies any abdominal pain. No nausea or vomiting. Grullon catheter remains in place. Plan was for patient to be discharged to [facility] but insurance authorization was still pending. 09/22: Insurance authorization has been obtained but discharge is being held as patient's renal function has continued to climb and he is at a BUN of 75 and creatinine 3.99. Consult added for Dr. Mcbride. Lasix has been discontinued and patient started on IV fluids 0.9 normal saline at 75 mL per hour. Solu- Medrol will be decreased to 40 mg every 12 hours. Blood sugars have been running high for which Levemir 10 units daily added. Patient states that he is not feeling good today. He is not eating or drinking very much. He does have Glucerna. He states he has no appetite. 09/23: Patient sitting up in bed is feeling better today he denies any chest pain , is less short of breath, he continues to have Grullon catheter in place, we will postpone his discharge until Tuesday due to his acute kidney injury. Objective - Vital Signs Vital signs: Vital Signs Temp 97.5 F L 09/23/17 07:52 Pulse 72 09/23/17 07:53 Resp 18 09/23/17 07:52 BP 130/65 09/23/17 07:52 Pulse Ox 91 L 09/23/17 07:52 Intake & Output 09/22/17 09/23/17 09/23/17 18:59 06:59 18:59 Intake Total 500 240 Output Total 404 103 1 Balance 96 -103 239 Weight 70.1 kg 70.1 kg Intake: Oral 500 240 Output: Urine 400 100 Stool 4 3 1 Other: Voiding Method Indwelling Catheter Indwelling Catheter Indwelling Catheter - Exam - Exam General appearance: Present: cooperative, disheveled, no acute distress. Absent : average body habitus, mild distress, morbidly obese, obese, severe distress, thin - EENT Eyes: Present: normal appearance. Absent: abnormal pupil, anicteric sclerae, disc margins sharp, edentulous, EOMI, PERRLA, fundus normal, photophobia, dentition normal, poor dentition, ptosis, scleral icterus ENT: Present: hard of hearing, pharyngeal erythema. Absent: hearing grossly normal, NA/AT, normal oropharynx, other, thrush, tonsillar exudates, tonsillar swelling Ears: bilateral: normal - Neck Neck: Present: normal ROM. Absent: lymphadenopathy, other, rigidity, stridor, thyromegaly Carotids: bilateral: upstroke normal, upstroke delayed Thyroid: bilateral: normal size - Respiratory Respiratory: bilateral: CTA, diminished, dullness, rales, rhonchi - Cardiovascular Rhythm: regular Heart sounds: normal: S1, S2 Abnormal Heart Sounds: Present: systolic murmur, S3 Gallop - Gastrointestinal General gastrointestinal: Present: decreased bowel sounds, distended, normal bowel sounds, soft. Absent: absent bowel sounds, hepatomegaly, hyperactive bowel sounds, organomegaly, rigid, scaphoid, splenomegaly, tenderness, umbilical hernia, ventral hernia - Integumentary Integumentary: Present: normal, pale, rash. Absent: calor, cellulitis, cyanotic , decreased turgor, flushed, jaundiced, normal turgor, ulcer - Neurologic Neurologic: Present: CNII-XII intact - Musculoskeletal Musculoskeletal: Present: generalized weakness, strength equal bilaterally. Absent: gait normal, right sided weakness, left sided weakness - Psychiatric Psychiatric: Absent: A&O x's 3, appropriate affect, intact judgment & insight - Labs CBC & Chem 7: 09/21/17 05:43 09/23/17 05:42 Labs: Abnormal Lab Results - Last 24 Hours (Table) 09/22/17 09/22/17 09/22/17 Range/Units 05:35 12:21 16:57 BUN (9-20) mg/dL Creatinine (0.66-1.25) mg/dL Glucose (74-99) mg/dL POC Glucose (mg/dL) 316 H 296 H (75-99) mg/dL Calcium (8.4-10.2) mg/dL Phosphorus (2.5-4.5) mg/dL TIBC 177 L (228-460) ug/dL 09/22/17 09/23/17 09/23/17 Range/Units 20:51 05:42 05:42 BUN 83 H* (9-20) mg/dL Creatinine 4.40 H (0.66-1.25) mg/dL Glucose 239 H (74-99) mg/dL POC Glucose (mg/dL) 233 H (75-99) mg/dL Calcium 8.2 L (8.4-10.2) mg/dL Phosphorus 4.7 H (2.5-4.5) mg/dL TIBC (228-460) ug/dL 09/23/17 Range/Units 06:50 BUN (9-20) mg/dL Creatinine (0.66-1.25) mg/dL Glucose (74-99) mg/dL POC Glucose (mg/dL) 268 H (75-99) mg/dL Calcium (8.4-10.2) mg/dL Phosphorus (2.5-4.5) mg/dL TIBC (228-460) ug/dL Microbiology - Last 24 Hours (Table) 09/17/17 15:08 Blood Culture - Preliminary Blood No Growth after 120 hours Assessment and Plan Assessment: Assessment and Plan Plan: 1. Acute hypoxic respiratory failure secondary to bilateral pleural effusions with bibasilar atelectasis due to acute on chronic diastolic heart failure. Pulmonary medicine has ruled out pneumonia. 2. Hypoxia encephalopathy most likely secondary to low pulse ox. Patient's mentation improved with oxygen therapy. Continue as in #1., Has improved from the last 48 hours. 3. Pneumonia ruled out by pulmonary medicine. 4. Acute kidney injury with CKD stage III with recent acute failure secondary to ATN secondary to sepsis. Patient started on IV fluids 0.9 normal saline at 50 mL per hour. Consult with Dr. Mcbride is appreciated. Continue sodium bicarb 650 mg twice daily. 5. Arrhythmia history with prior Nonsustained ventricular tachycardia on 2015 H and was seen by cardiology echocardiogramJuly 2016 showed atrial fibrillation with small pericardial effusion noted ejection fraction 45-50% inferolateral hypokinesis with palpation of LA size over 40. 6. Grullon catheter associated MRSA urinary tract infection and bacteremia with sepsis Dr. Louis recommends daptomycin. Course will be completed on October 04. 7. CAD post CABG. continue aspirin 81 mg orally once every day, Lipitor 40 mg daily, Lopressor. 8. Diabetes mellitus type II with hyperglycemia secondary to steroids: Levemir has been added. Continue with NovoLog sliding scale. Patient has been off scheduled insulin due to hypoglycemia. 9. Hypertensive cardiovascular disease. Continue amlodipine 5 mg twice daily, hydralazine 100 mg 3 times daily, lisinopril 5 mg daily, lopressor 12.5 mg twice daily. 10. Hyperlipidemia: Continue statin. 11. Chronic A. fib. Patient is no longer on Coumadin. This may be related to risk of falls. 12. Recurrent depression: Continue Paxil. 13. Seizure history: Has been on Keppra 750 g twice a day with no new seizure activity. 14. Urinary retention with BPH: Patient has chronic Grullon catheter. Continue Flomax. 15. Severe GERD: Will add Protonix 40 mg daily 16. Severe protein calorie malnutrition due to lack of oral intake. Protein supplement. 17. Chronic low back pain. No change. Patient is off Points Discharge plan: [facility] [place] on Tuesday
--- NOTE | 2017-09-23 14:00 | PN ---
PROGRESS NOTE DATE OF SERVICE: 09/23/2017 REASON FOR FOLLOWUP: MRSA urinary tract infection with bacteremia. INTERVAL HISTORY: The patient is currently afebrile. He is awake, alert, up in the chair. Denies having any chest pain or shortness of breath, no cough, no abdominal pain or any diarrhea. PHYSICAL EXAMINATION: Blood pressure 114/62 with a pulse of 73, temperature 97.5, he is 99% on 2 L nasal cannula. General description is an elderly male, up in the chair, in no distress. RESPIRATORY SYSTEM: Unlabored breathing, clear to auscultation anteriorly. HEART: S1, S2. Regular rate and rhythm. ABDOMEN: Soft, no tenderness. EXTREMITIES: No edema of the feet. LABS: BUN of 83, creatinine 4.40. DIAGNOSTIC IMPRESSION AND PLAN: Patient with methicillin-resistant Staphylococcus aureus bacteremia secondary to the urinary source with the patient currently on daptomycin. Blood cultures so far has been negative. Plan will be to continue patient on daptomycin until 10/02/2017 to finish a course of therapy. Waiting for improvement in his kidney function. Continue supportive care. MMODL / IJN: [id number] /
[2017-09-23 16:26] LABS: Glucose,Whole Blood 211 mg/dL (75-99)
[2017-09-23] MEDS: DARBEPOETIN ALFA 40 MCG/0.4 ML SYRINGE SQ SCH (16:49)
[2017-09-23] MEDS: CLOTRIMAZOLE/BETAMETH 1-0.05% CREAM 45 GM TUBE TOPICAL SCH ×2 (16:49→19:35)
[2017-09-23] MEDS: MONTELUKAST 10 MG TAB PO SCH (19:31)
[2017-09-23] MEDS: MULTIVITAMINS, THERA 1 EACH TAB PO SCH (19:31)
[2017-09-23 20:50] LABS: Glucose,Whole Blood 252 mg/dL (75-99)
[2017-09-24] MEDS: SODIUM CHLORIDE 0.9% 1,000 ML IV SCH (01:40)
[2017-09-24 05:55] LABS: Glucose,Whole Blood 307 mg/dL (75-99)
[2017-09-24 06:31] LABS: Anisocytosis Slight; Basophils % (A) 0 %; Eosinophils % (A) 0 %; HGB 8.5 gm/dL (13.0-17.5); Hypochromasia Moderate; Lymphocytes # (A) 0.4 k/uL (1.0-4.8); Lymphocytes % (A) 5 %; MCH 28.6 pg (25.0-35.0); MCHC 31.5 g/dL (31.0-37.0); MCV 90.7 fL (80.0-100.0); Mean Platelet Volume 8.2; Monocytes # (A) 0.2 k/uL (0-1.0); Monocytes % (A) 3 %; Neutrophils # (A) 6.8 k/uL (1.3-7.7); Neutrophils % (A) 92 %; Platelet Count 157 k/uL (150-450); RBC 2.97 m/uL (4.30-5.90); RDW 16.1 % (11.5-15.5); WBC 7.4 k/uL (3.8-10.6)
[2017-09-24] MEDS: PANTOPRAZOLE 40 MG TABLET PO SCH (06:48)
[2017-09-24] MEDS: INSULIN ASPART 100 UNIT/ML 1 ML 10 ML VIAL SQ SCH ×4 (06:48→21:12)
[2017-09-24 06:49] LABS: Albumin 2.9 g/dL (3.5-5.0); Calcium 8.4 mg/dL (8.4-10.2); Potassium 5.2 mmol/L (3.5-5.1); Total Bilirubin 0.4 mg/dL (0.2-1.3); Total Protein 6.3 g/dL (6.3-8.2)
--- NOTE | 2017-09-24 08:08 | XR ---
EXAMINATION TYPE: XR humerus LT DATE OF EXAM: 09/24/2017 CLINICAL HISTORY: pain, left over IV TECHNIQUE: Frontal and lateral images of the left humerus are obtained. COMPARISON: None. FINDINGS: There is no acute fracture/dislocation evident. The joint spaces appear within normal limi ts. 2 nonspecific small foci of increased radio density of uncertain etiology in the upper medial sof t tissues. IMPRESSION: There is no acute fracture or dislocation.2 nonspecific small foci of increased radio density of unce rtain etiology in the upper medial soft tissues. ICD 10 NO FRACTURE, INITIAL EVALUATION
[2017-09-24] MEDS: IPRATROPIUM-ALBUTEROL 3 ML NEB INHALATION SCH ×4 (08:17→19:43)
[2017-09-24] MEDS: FORMOTEROL FUMARATE 20 MCG/2 ML NEBU INHALATION SCH ×2 (08:18→19:44)
[2017-09-24] MEDS: BUDESONIDE 0.5 MG/2 ML NEBU INHALATION SCH ×2 (08:18→19:43)
[2017-09-24] MEDS: INSULIN DETEMIR 100 UNIT/ML 10 ML VIAL SQ SCH (08:28)
[2017-09-24] MEDS: HEPARIN SODIUM,PORCINE 5,000 UNIT/ML 1 ML VIAL SQ SCH ×3 (08:30→23:02)
[2017-09-24] MEDS: hydrALAZINE HCL 50 MG TAB PO SCH ×3 (08:36→16:07)
[2017-09-24] MEDS: amLODIPine 5 MG TAB PO SCH (08:37)
[2017-09-24] MEDS: methylPREDNISolone SOD SUCCI 40 MG/ML 1 ML VIAL IV SCH ×2 (08:47→21:05)
[2017-09-24] MEDS: TAMSULOSIN 0.4 MG CAP.ER.24H PO SCH ×2 (08:47→21:06)
[2017-09-24] MEDS: SODIUM BICARBONATE TAB 650 MG TAB PO SCH ×2 (08:48→21:06)
[2017-09-24] MEDS: METOPROLOL TARTRATE 12.5 MG TAB PO SCH ×2 (08:48→23:01)
[2017-09-24] MEDS: PARoxetine 10 MG TAB PO SCH (08:48)
[2017-09-24] MEDS: CLOTRIMAZOLE/BETAMETH 1-0.05% CREAM 45 GM TUBE TOPICAL SCH ×2 (08:59→21:05)
[2017-09-24 11:41] LABS: Glucose,Whole Blood 274 mg/dL (75-99)
[2017-09-24] MEDS ORDERED: INSULIN ASPART 100 UNIT/ML 1 ML 10 ML VIAL SQ ONE (12:24)
--- NOTE | 2017-09-24 12:29 | PN ---
PROGRESS NOTE Patient is seen for followup for acute kidney injury. He is currently lying in bed. He is comfortable. Patient is not in any acute distress. His creatinine is actually a bit higher from yesterday. Patient continues to have good urine output. There is consideration for starting renal replacement therapy. The STACEY inhibitors were recently discontinued. The patient has an indwelling Grullon catheter. PHYSICAL EXAMINATION: On examination today, blood pressure is 119/76, heart rate 63 per minute. Patient is afebrile. EXAMINATION OF THE HEART: S1, S2. EXAMINATION OF LUNGS: Bilateral breath sounds are heard. Decreased breath sounds in the bases in the lungs. No wheezing is heard. ABDOMEN: Soft, non-tender. Examination of lower extremities shows no significant edema. SAL[facility] TROLL FISHER exam shows patient is moving all 4 extremities. LABS: Sodium 140, potassium 5.2, BUN 89, serum creatinine 4.7, albumin 2.9. Hemoglobin was at 8.5 g/dL. ASSESSMENT: 1. Acute kidney injury, acute tubular necrosis, currently nonoliguric. Serum creatinine is slightly higher from yesterday. However, overall clinically patient's condition does not appear to be significantly changed. He is maintained on IV fluids at 50 mL/hour, which I will hold for now. Patient had been on Lasix. Currently he is not on any diuretics. We will repeat labs in a.m. and reassess on a daily basis for need for renal replacement therapy. 2. Methicillin-resistant Staphylococcus aeruginosa bacteremia, maintained on daptomycin. 3. Urinary tract infection with urine culture positive for methicillin-resistant Staphylococcus aeruginosa and enterococcus. 4. Anemia, iron replete, maintained on Aranesp. 5. Hypertension, currently controlled. Blood pressure is low. Continue off of STACEY inhibitors. PLAN: Discontinue IV fluids. Check chest x-ray in a.m. Repeat labs in a.m. Encourage increased oral intake. Continue with Grullon catheter. I will discontinue the amlodipine and repeat labs in a.m. MMODL / IJN: [id number] /
[2017-09-24] MEDS: ISOSORBIDE MONONITRATE ER 30 MG TAB.ER.24H PO SCH (12:37)
[2017-09-24 16:37] LABS: Glucose,Whole Blood 222 mg/dL (75-99)
--- NOTE | 2017-09-24 16:37 | P.PN ---
Subjective Progress Note Date: 09/24/17 ogress Note Date: 09/23/17 This is a 71-year-old male one of Dr. Lucas Gallo's patient with past medical history of hypertension, hyperlipidemia, diabetes, COPD, chronic systolic and possible diastolic heart failure, alcoholism, coronary artery disease and underwent CABG 2015 ended up having multiple complications and the multiple rehospitalization for worsening shortness of breath, A. fib and other complication. He has had several admissions over the past 2 months for recurrent metabolic encephalopathy with sepsis of possible aspiration pneumonia and urinary tract infection. He has been followed by Dr. Nicholas, Dr. Louis. Thought changes were possibly related to narcotic use. On recent admission in July patient did require intubation. He is currently residing at [facility] on the care of Dr. Blackman and most recent discharge was on September 05. Patient was brought in by EMS on September 14 to the emergency center due to mental status changes. Patient was treated with increased Lasix and return to the snf for CHF exacerbation. His vital signs were stable at that time , BUN 36 creatinine 2.08, normal white count. Troponin was negative. Patient return to [facility] emergency center on September 15 due to pulse ox of 80s, generalized weakness and decreased level of consciousness. Patient barely was placed on oxygen by EMS and became much more alert. Temperature max is 100.2, vital signs were otherwise stable. Initial pulse ox was 89%. EKG was atrial fibrillation controlled rate with T-wave inversion in the inferior leads. Patient was admitted to the selective care unit and consult placed with cardiology and pulmonary medicine. Patient's mentation appears to be back to his baseline. He is more alert and interactive today is feeling little bit better slightly decreased shortness of breath compared to before. Patient be seen cardiology still on diuretics whether can benefit from any further testing cardiac-hardwick are not is to be determined. Also patient has passed his swallow eval despite having aspiration pneumonia being treated for. 09/18/2017: Patient is doing much better is drinking his coffee this had his breakfast earlier. His microbiology came back positive for MRSA and enterococcus, patient is seen infectious disease was switched from vancomycin to daptomycin. 09/19: Patient is clinically doing much better surprisingly his chest x-ray came back more positive for low below pneumonia with multi-patchy area in the chest, still treated for UTI and aspiration pneumonia with the same antibiotics. Patient is interacting more and his acute mental status change reverse almost back to its baseline. 09/20: Patient has been followed by phone or medicine and cardiology. Cardiology has signed off and following as needed only. Dr. Louis is following for MRSA bacteremia likely urinary tract infection is the source. Grullon catheter has been exchanged. Plan is for patient to be on daptomycin for 2 weeks. Midline is to be placed today. Patient has been afebrile. Pulse ox 95 % on 6 L nasal cannula. Today, BUN 46, creatinine 2.94 potassium 5.4. Hemoglobin is stable at 8.9. Other electrolytes within normal limits and liver function tests within normal limits. Patient was started on Solu-Medrol 60 mg every 6 hours bipolar medicine yesterday. Blood sugars are running in the 200s.Solu-Medrol will be decreased to 40 mg every 8 hours. We'll plan for discharge tomorrow. 09/21: Pulse ox is 97% on 3 L nasal cannula. Renal function is worsening with BUN 61 and creatinine 3.65, hemoglobin 8.2. Plan is for renal function to be monitored at the snf. Patient denies any difficulty breathing. Patient is drowsy but answers questions appropriately and denies any new complaints. He denies any abdominal pain. No nausea or vomiting. Grullon catheter remains in place. Plan was for patient to be discharged to [facility] but insurance authorization was still pending. 09/22: Insurance authorization has been obtained but discharge is being held as patient's renal function has continued to climb and he is at a BUN of 75 and creatinine 3.99. Consult added for Dr. Mcbride. Lasix has been discontinued and patient started on IV fluids 0.9 normal saline at 75 mL per hour. Solu- Medrol will be decreased to 40 mg every 12 hours. Blood sugars have been running high for which Levemir 10 units daily added. Patient states that he is not feeling good today. He is not eating or drinking very much. He does have Glucerna. He states he has no appetite. 09/23: Patient sitting up in bed is feeling better today he denies any chest pain , is less short of breath, he continues to have Grullon catheter in place, we will postpone his discharge until Tuesday due to his acute kidney injury. Total: Patient wanted to get up from bed, however he is recently , otherwise is comfortable, patient pulled out th midline last night, this would be reinserted for new midline and ordered for Tuesday, completed IV antibiotics daptomycin for MRSA bacteremia until October 02 by infectious disease, creatinine remains to be elevated at 4.7, and admitting creatinine of 2.5. With catheter draining clear, Grullon catheter remaining clear urine nephrology following., Objective - Vital Signs Vital signs: Vital Signs Temp 97 F L 09/24/17 15:53 Pulse 62 09/24/17 15:53 Resp 20 09/24/17 15:53 BP 130/70 09/24/17 15:53 Pulse Ox 92 L 09/24/17 15:53 Intake & Output 09/23/17 09/24/17 09/24/17 18:59 06:59 18:59 Intake Total 702 810 180 Output Total 703 575 Balance -1 235 180 Weight 70.1 kg 72.5 kg Intake: Intake, IV Titration 450 Amount Sodium Chloride 0.9% 1, 450 000 ml @ 50 mls/hr IV . Q20H [facility] Rx#:[id number] Oral 702 360 180 Output: Urine 700 575 Stool 3 Other: Voiding Method Indwelling Catheter Indwelling Catheter Indwelling Catheter # Bowel Movements 1 2 - Constitutional General appearance: Present: cooperative, no acute distress - EENT Eyes: Present: anicteric sclerae, dentition normal, normal appearance ENT: Present: hard of hearing, NA/AT, normal oropharynx - Cardiovascular Rhythm: regular Heart sounds: normal: S1, S2 Abnormal Heart Sounds: Present: systolic murmur. Absent: diastolic murmur, rub , S3 Gallop, S4 Gallop, click, other - Gastrointestinal General gastrointestinal: Present: normal bowel sounds - Integumentary Integumentary: Present: normal - Neurologic Neurologic: Present: CNII-XII intact - Musculoskeletal Musculoskeletal: Present: generalized weakness - Psychiatric Psychiatric: Present: A&O x's 3 - Labs CBC & Chem 7: 09/24/17 05:44 09/24/17 05:44 Labs: Abnormal Lab Results - Last 24 Hours (Table) 09/23/17 09/24/17 09/24/17 Range/Units 20:48 05:44 05:44 RBC 2.97 L (4.30-5.90) m/uL Hgb 8.5 L (13.0-17.5) gm/dL Hct 27.0 L (39.0-53.0) % RDW 16.1 H (11.5-15.5) % Lymphocytes # 0.4 L (1.0-4.8) k/uL Potassium 5.2 H (3.5-5.1) mmol/L BUN 89 H* (9-20) mg/dL Creatinine 4.70 H (0.66-1.25) mg/dL Glucose 293 H (74-99) mg/dL POC Glucose (mg/dL) 252 H (75-99) mg/dL Albumin 2.9 L (3.5-5.0) g/dL 09/24/17 09/24/17 Range/Units 05:50 11:40 RBC (4.30-5.90) m/uL Hgb (13.0-17.5) gm/dL Hct (39.0-53.0) % RDW (11.5-15.5) % Lymphocytes # (1.0-4.8) k/uL Potassium (3.5-5.1) mmol/L BUN (9-20) mg/dL Creatinine (0.66-1.25) mg/dL Glucose (74-99) mg/dL POC Glucose (mg/dL) 307 H 274 H (75-99) mg/dL Albumin (3.5-5.0) g/dL Microbiology - Last 24 Hours (Table) 09/17/17 15:08 Blood Culture - Final Blood No Growth after 144 hours Assessment and Plan Plan: 1. MRSA bacteremia secondary to urinary tract infection currently on daptomycin , currently blood cultures so far negative, to complete Total until 10/02/2017 through a midline to complete course. 2. Acute hypoxic respiratory failure secondary to bilateral pleural effusions with bibasilar atelectasis due to acute on chronic diastolic heart failure. Pulmonary medicine has ruled out pneumonia.3. Pneumonia ruled out by pulmonary medicine. 3. Hypoxia encephalopathy most likely secondary to low pulse ox. Patient's mentation improved with oxygen therapy. Continue as in #1., Has improved . Maintaining at 2 L to 3 L nasal cannula 4. Acute kidney injury with CKD stage III with recent acute failure secondary to ATN secondary to sepsis. Patient started on IV fluids 0.9 normal saline at 50 mL per hour. Consult with Dr. Mcbride is appreciated. Continue sodium bicarb 650 mg twice daily. Patient is off diuretics, creatinine higher than baseline 5. Arrhythmia history with prior Nonsustained ventricular tachycardia on 2015 H and was seen by cardiology echocardiogramJuly 2016 showed atrial fibrillation with small pericardial effusion noted ejection fraction 45-50% inferolateral hypokinesis with palpation of LA size over 40. 6. Grullon catheter associated MRSA urinary tract infection and bacteremia with sepsis Dr. Louis recommends daptomycin. Course will be completed on October 04. 7. CAD post CABG. continue aspirin 81 mg orally once every day, Lipitor 40 mg daily, Lopressor. 8. Diabetes mellitus type II with hyperglycemia secondary to steroids: Levemir has been added. Continue with NovoLog sliding scale. Patient has been off scheduled insulin due to hypoglycemia. 9. Hypertensive cardiovascular disease. Continue amlodipine 5 mg twice daily, hydralazine 100 mg 3 times daily, LISINOPRIL has been on hold secondary to worsening creatinine, was on lisinopril 5 mg daily. lopressor 12.5 mg twice daily. 10. Hyperlipidemia: Continue statin. 11. Chronic A. fib. Patient is no longer on Coumadin. This may be related to risk of falls. 12. Recurrent depression: Continue Paxil. 13. Seizure history: Has been on Keppra 750 g twice a day with no new seizure activity. 14. Urinary retention with BPH: Patient has chronic Grullon catheter. Continue Flomax. 15. Severe GERD: Will add Protonix 40 mg daily 16. Severe protein calorie malnutrition due to lack of oral intake. Protein supplement. 17. Chronic low back pain. No change. Patient is off [place] Discharge plan: [facility] on Tuesday
[2017-09-24 20:41] LABS: Glucose,Whole Blood 194 mg/dL (75-99)
[2017-09-24] MEDS: MULTIVITAMINS, THERA 1 EACH TAB PO SCH (21:06)
[2017-09-24] MEDS: MONTELUKAST 10 MG TAB PO SCH (21:06)
[2017-09-24] MEDS: ACETAMINOPHEN TAB 500 MG TAB PO PRN (21:16)
[2017-09-25 06:19] LABS: Calcium 8.3 mg/dL (8.4-10.2); Potassium 5.5 mmol/L (3.5-5.1)
[2017-09-25 06:28] LABS: Basophils % (A) 0 %; Eosinophils # (A) 0.1 k/uL (0-0.7); Eosinophils % (A) 1 %; HCT 26.2 % (39.0-53.0); HGB 8.2 gm/dL (13.0-17.5); Hypochromasia Slight; Lymphocytes # (A) 0.4 k/uL (1.0-4.8); Lymphocytes % (A) 4 %; MCH 27.7 pg (25.0-35.0); MCHC 31.4 g/dL (31.0-37.0); MCV 88.2 fL (80.0-100.0); Mean Platelet Volume 8.2; Monocytes # (A) 0.2 k/uL (0-1.0); Monocytes % (A) 3 %; Neutrophils # (A) 8.6 k/uL (1.3-7.7); Neutrophils % (A) 93 %; Platelet Count 163 k/uL (150-450); RBC 2.97 m/uL (4.30-5.90); RDW 15.8 % (11.5-15.5); WBC 9.3 k/uL (3.8-10.6)
[2017-09-25] MEDS: INSULIN ASPART 100 UNIT/ML 1 ML 10 ML VIAL SQ SCH ×4 (07:40→21:44)
[2017-09-25] MEDS: methylPREDNISolone SOD SUCCI 40 MG/ML 1 ML VIAL IV SCH (07:40)
[2017-09-25] MEDS: HEPARIN SODIUM,PORCINE 5,000 UNIT/ML 1 ML VIAL SQ SCH ×3 (07:41→22:59)
[2017-09-25] MEDS: PANTOPRAZOLE 40 MG TABLET PO SCH (07:41)
[2017-09-25] MEDS: hydrALAZINE HCL 25 MG TAB PO SCH ×3 (07:42→16:54)
[2017-09-25] MEDS: METOPROLOL TARTRATE 12.5 MG TAB PO SCH ×2 (07:43→21:44)
[2017-09-25] MEDS: SODIUM BICARBONATE TAB 650 MG TAB PO SCH ×2 (07:43→21:44)
[2017-09-25] MEDS: ISOSORBIDE MONONITRATE ER 30 MG TAB.ER.24H PO SCH (07:43)
[2017-09-25] MEDS: PARoxetine 10 MG TAB PO SCH ×2 (07:43→07:44)
[2017-09-25] MEDS: INSULIN DETEMIR 100 UNIT/ML 10 ML VIAL SQ SCH (07:45)
[2017-09-25 08:04] LABS: Glucose,Whole Blood 242 mg/dL (75-99)
[2017-09-25] MEDS: IPRATROPIUM-ALBUTEROL 3 ML NEB INHALATION SCH ×4 (08:16→20:16)
[2017-09-25] MEDS: FORMOTEROL FUMARATE 20 MCG/2 ML NEBU INHALATION SCH ×2 (08:16→20:28)
[2017-09-25] MEDS: BUDESONIDE 1 MG/2 ML NEBU INHALATION SCH ×2 (08:17→20:16)
[2017-09-25] MEDS: TAMSULOSIN 0.4 MG CAP.ER.24H PO SCH ×2 (08:21→21:44)
[2017-09-25] MEDS: CLOTRIMAZOLE/BETAMETH 1-0.05% CREAM 45 GM TUBE TOPICAL SCH ×2 (08:21→22:58)
[2017-09-25] MEDS: BUDESONIDE 0.5 MG/2 ML NEBU INHALATION SCH (09:06)
[2017-09-25 12:27] LABS: Glucose,Whole Blood 197 mg/dL (75-99)
[2017-09-25] MEDS ORDERED: SODIUM POLYSTYRENE SULFONATE 15 GM/60 ML BOTTLE PO ONE (13:22)
--- NOTE | 2017-09-25 15:52 | PN ---
PROGRESS NOTE Patient is seen for followup for acute kidney injury. Currently, patient is not communicating much. He does open his eyes. Serum creatinine is slightly low at 4.5 from 4.7 yesterday. The patient has an indwelling Grullon catheter. He has had a 24 hour urine output of about 1.27 L. PHYSICAL EXAMINATION: On examination today, blood pressure was 135/67, heart rate 66 per minute. Patient is afebrile. Examination of the heart: S1, S2. Examination lungs: Decreased breath sounds bases. Abdomen is soft, nontender. Exam of lower extremity shows trace edema bilaterally. INTERNAL INVESTIGATOR exam cannot be performed in detail. LABS: Sodium 141, potassium 5.5, BUN 99, serum creatinine 4.5, phosphorus was 6.0, hemoglobin 8.2 g/dL. ASSESSMENT: 1. Acute kidney injury, acute tubular necrosis, currently nonoliguric. Serum creatinine slightly improved as compared to yesterday. Continue off of IV fluids. 2. MRSA bacteremia. Maintained on daptomycin. 3. Urinary tract infection with urine culture positive for MRSA and Enterococcus. 4. Anemia, iron replete. Maintained on Aranesp. 5. Hypertension, currently off of STACEY inhibitors. 6. Mild hyperkalemia associated with renal failure. No evidence of acidosis. Good urine output. Blood sugar was elevated at 242. I will repeat a potassium later this evening and we will continue with more aggressive blood sugar control. I would avoid the Kayexalate for now. Overall prognosis is guarded. MMODL / IJN: [id number] /
[2017-09-25 17:09] LABS: Glucose,Whole Blood 195 mg/dL (75-99)
--- NOTE | 2017-09-25 17:26 | P.PN ---
Subjective ogress Note Date: 09/23/17 This is a 71-year-old male one of Dr. Lucas Gallo's patient with past medical history of hypertension, hyperlipidemia, diabetes, COPD, chronic systolic and possible diastolic heart failure, alcoholism, coronary artery disease and underwent CABG 2015 ended up having multiple complications and the multiple rehospitalization for worsening shortness of breath, A. fib and other complication. He has had several admissions over the past 2 months for recurrent metabolic encephalopathy with sepsis of possible aspiration pneumonia and urinary tract infection. He has been followed by Dr. Nicholas, Dr. Louis. Thought changes were possibly related to narcotic use. On recent admission in July patient did require intubation. He is currently residing at [facility] on the care of Dr. Blackman and most recent discharge was on September 05. Patient was brought in by EMS on September 14 to the emergency center due to mental status changes. Patient was treated with increased Lasix and return to the residential for CHF exacerbation. His vital signs were stable at that time , BUN 36 creatinine 2.08, normal white count. Troponin was negative. Patient return to [facility] emergency center on September 15 due to pulse ox of 80s, generalized weakness and decreased level of consciousness. Patient barely was placed on oxygen by EMS and became much more alert. Temperature max is 100.2, vital signs were otherwise stable. Initial pulse ox was 89%. EKG was atrial fibrillation controlled rate with T-wave inversion in the inferior leads. Patient was admitted to the selective care unit and consult placed with cardiology and pulmonary medicine. Patient's mentation appears to be back to his baseline. He is more alert and interactive today is feeling little bit better slightly decreased shortness of breath compared to before. Patient be seen cardiology still on diuretics whether can benefit from any further testing cardiac-hardwick are not is to be determined. Also patient has passed his swallow eval despite having aspiration pneumonia being treated for. 09/18/2017: Patient is doing much better is drinking his coffee this had his breakfast earlier. His microbiology came back positive for MRSA and enterococcus, patient is seen infectious disease was switched from vancomycin to daptomycin. 09/19: Patient is clinically doing much better surprisingly his chest x-ray came back more positive for low below pneumonia with multi-patchy area in the chest, still treated for UTI and aspiration pneumonia with the same antibiotics. Patient is interacting more and his acute mental status change reverse almost back to its baseline. 09/20: Patient has been followed by phone or medicine and cardiology. Cardiology has signed off and following as needed only. Dr. Louis is following for MRSA bacteremia likely urinary tract infection is the source. Grullon catheter has been exchanged. Plan is for patient to be on daptomycin for 2 weeks. Midline is to be placed today. Patient has been afebrile. Pulse ox 95 % on 6 L nasal cannula. Today, BUN 46, creatinine 2.94 potassium 5.4. Hemoglobin is stable at 8.9. Other electrolytes within normal limits and liver function tests within normal limits. Patient was started on Solu-Medrol 60 mg every 6 hours bipolar medicine yesterday. Blood sugars are running in the 200s.Solu-Medrol will be decreased to 40 mg every 8 hours. We'll plan for discharge tomorrow. 09/21: Pulse ox is 97% on 3 L nasal cannula. Renal function is worsening with BUN 61 and creatinine 3.65, hemoglobin 8.2. Plan is for renal function to be monitored at the residential. Patient denies any difficulty breathing. Patient is drowsy but answers questions appropriately and denies any new complaints. He denies any abdominal pain. No nausea or vomiting. Grullon catheter remains in place. Plan was for patient to be discharged to [facility] but insurance authorization was still pending. 09/22: Insurance authorization has been obtained but discharge is being held as patient's renal function has continued to climb and he is at a BUN of 75 and creatinine 3.99. Consult added for Dr. Mcbride. Lasix has been discontinued and patient started on IV fluids 0.9 normal saline at 75 mL per hour. Solu- Medrol will be decreased to 40 mg every 12 hours. Blood sugars have been running high for which Levemir 10 units daily added. Patient states that he is not feeling good today. He is not eating or drinking very much. He does have Glucerna. He states he has no appetite. 09/23: Patient sitting up in bed is feeling better today he denies any chest pain , is less short of breath, he continues to have Grullon catheter in place, we will postpone his discharge until Tuesday due to his acute kidney injury. 09/24: Total: Patient wanted to get up from bed, however he is recently , otherwise is comfortable, patient pulled out th midline last night, this would be reinserted for new midline and ordered for Tuesday, completed IV antibiotics daptomycin for MRSA bacteremia until October 02 by infectious disease, creatinine remains to be elevated at 4.7, and admitting creatinine of 2.5. With catheter draining clear, Grullon catheter remaining clear urine nephrology following., 09/25: Patient is comfortable today, however creatinine reached be high at 4.5 bun at 99. hyperkalemia 5.5 kayexelate 15 mg x 1 dose weekly Solu-Medrol and discontinue IV, oral prednisone 40the morning, midline IV access anticipated to be performed in the morning Objective - Vital Signs Vital signs: Vital Signs Temp 97.9 F 09/25/17 14:15 Pulse 66 09/25/17 14:15 Resp 16 09/25/17 14:15 BP 128/62 09/25/17 14:15 Pulse Ox 100 09/25/17 14:15 Intake & Output 09/24/17 09/25/17 09/25/17 18:59 06:59 18:59 Intake Total 180 Output Total 450 125 Balance 180 -450 -125 Intake: Oral 180 Output: Urine 450 125 Uretheral (Grullon) 150 Other: Voiding Method Indwelling Catheter Indwelling Catheter Indwelling Catheter # Voids 1 # Bowel Movements 2 0 - Constitutional General appearance: Present: cooperative, no acute distress - EENT Eyes: Present: anicteric sclerae, EOMI, PERRLA, dentition normal ENT: Present: NA/AT, normal oropharynx - Neck Neck: Present: normal ROM - Respiratory Respiratory: bilateral: CTA, negative: diminished, dullness, rales, rhonchi - Cardiovascular Rhythm: regular Heart sounds: normal: S1, S2 Abnormal Heart Sounds: Present: systolic murmur - Gastrointestinal General gastrointestinal: Present: normal bowel sounds, soft - Integumentary Integumentary: Present: decreased turgor, normal (Normal bruises) - Neurologic Neurologic: Present: CNII-XII intact - Musculoskeletal Musculoskeletal: Present: generalized weakness, strength equal bilaterally - Psychiatric Psychiatric: Present: A&O x's 3 - Labs CBC & Chem 7: 09/25/17 06:00 09/25/17 06:00 Labs: Abnormal Lab Results - Last 24 Hours (Table) 09/24/17 09/25/17 09/25/17 Range/Units 20:37 06:00 06:00 RBC 2.97 L (4.30-5.90) m/uL Hgb 8.2 L (13.0-17.5) gm/dL Hct 26.2 L (39.0-53.0) % RDW 15.8 H (11.5-15.5) % Neutrophils # 8.6 H (1.3-7.7) k/uL Lymphocytes # 0.4 L (1.0-4.8) k/uL Potassium 5.5 H (3.5-5.1) mmol/L BUN 99 H* (9-20) mg/dL Creatinine 4.50 H (0.66-1.25) mg/dL Glucose 214 H (74-99) mg/dL POC Glucose (mg/dL) 194 H (75-99) mg/dL Calcium 8.3 L (8.4-10.2) mg/dL Phosphorus 6.0 H (2.5-4.5) mg/dL 09/25/17 09/25/17 09/25/17 Range/Units 07:34 12:25 16:55 RBC (4.30-5.90) m/uL Hgb (13.0-17.5) gm/dL Hct (39.0-53.0) % RDW (11.5-15.5) % Neutrophils # (1.3-7.7) k/uL Lymphocytes # (1.0-4.8) k/uL Potassium (3.5-5.1) mmol/L BUN (9-20) mg/dL Creatinine (0.66-1.25) mg/dL Glucose (74-99) mg/dL POC Glucose (mg/dL) 242 H 197 H 195 H (75-99) mg/dL Calcium (8.4-10.2) mg/dL Phosphorus (2.5-4.5) mg/dL Assessment and Plan Plan: 1. MRSA bacteremia secondary to urinary tract infection currently on daptomycin , currently blood cultures so far negative, to complete Total until 10/02/2017 through a midline to complete course. 2. Acute hypoxic respiratory failure secondary to bilateral pleural effusions with bibasilar atelectasis due to acute on chronic diastolic heart failure. Pulmonary medicine has ruled out pneumonia.3. Pneumonia ruled out by pulmonary medicine. 3. Hypoxia encephalopathy most likely secondary to low pulse ox. Patient's mentation improved with oxygen therapy. Continue as in #1., Has improved . Maintaining at 2 L to 3 L nasal cannula 4. Acute kidney injury with CKD stage III with recent acute failure secondary to ATN secondary to sepsis worsening creatinine. Patient started on IV fluids 0.9 normal saline at 50 mL per hour. Consult with Dr. Mcbride is appreciated. Continue sodium bicarb 650 mg twice daily. Patient is off diuretics, creatinine higher than baseline amlodipine discontinued by nephrology, hydralazine [ 5. Arrhythmia history with prior Nonsustained ventricular tachycardia on 2015 H and was seen by cardiology echocardiogramJuly 2016 showed atrial fibrillation with small pericardial effusion noted ejection fraction 45-50% inferolateral hypokinesis with palpation of LA size over 40. 6. Grullon catheter associated MRSA urinary tract infection and bacteremia with sepsis Dr. Louis recommends daptomycin. Course will be completed on October 04. 7. CAD post CABG. continue aspirin 81 mg orally once every day, Lipitor 40 mg daily, Lopressor. 8. Diabetes mellitus type II with hyperglycemia secondary to steroids: Levemir has been added. Continue with NovoLog sliding scale. Patient has been off scheduled insulin due to hypoglycemia. 9. Hypertensive cardiovascular disease. hydralazine decreased to 25 mg mg 3 times daily, LISINOPRIL has been on hold secondary to worsening creatinine, was on lisinopril 5 mg daily. lopressor 12.5 mg twice daily. 10. Hyperlipidemia: Continue statin. 11. Chronic A. fib. Patient is no longer on Coumadin. This may be related to risk of falls. 12. Recurrent depression: Continue Paxil. 13. Seizure history: Has been on Keppra 750 g twice a day with no new seizure activity. 14. Urinary retention with BPH: Patient has chronic Grullon catheter. Continue Flomax. 15. Severe GERD: Will add Protonix 40 mg daily 16. Severe protein calorie malnutrition due to lack of oral intake. Protein supplement. 17. Chronic low back pain. No change. Patient is off [place] 8. Azotemia with worsening creatinine, Solu-Medrol discontinued 6 63: Oral prednisone 140a morning continue PPI Protonix [facility] stabilized from nephrology standpoint
[2017-09-25 20:55] LABS: Glucose,Whole Blood 257 mg/dL (75-99)
[2017-09-25] MEDS: MONTELUKAST 10 MG TAB PO SCH (21:44)
[2017-09-25] MEDS: MULTIVITAMINS, THERA 1 EACH TAB PO SCH (21:44)
--- NOTE | 2017-09-25 23:16 | PN ---
PROGRESS NOTE DATE OF SERVICE: 09/25/2017. REASON FOR FOLLOWUP: MRSA bacteremia secondary to urinary source. INTERVAL HISTORY: The patient is currently afebrile. He has been breathing comfortably. Denies having any chest pain. No shortness of breath or cough. No abdominal pain or any diarrhea. PHYSICAL EXAMINATION: Blood pressure 128/62, pulse of 56, temperature of 97.9, he is 100% 4 L. GENERAL DESCRIPTION: An elderly male lying in bed in no distress. RESPIRATORY SYSTEM: Unlabored breathing. Clear to auscultation anteriorly. HEART: S1, S2. Regular rate and rhythm noted. LABS: Hemoglobin 8.8, white count 9.3, BUN of 99, creatinine 4.50. DIAGNOSTIC IMPRESSION AND PLAN: Patient with MRSA bacteremia secondary to use of Zosyn. Repeat blood cultures have been negative. Currently on daptomycin because of . Plan to continue with daptomycin until 10/13/2017. Continue with supportive care. MMODL / IJN: [id number] /
[2017-09-26 03:12] LABS: Glucose,Whole Blood 124 mg/dL (75-99)
[2017-09-26 07:26] LABS: Glucose,Whole Blood 142 mg/dL (75-99)
[2017-09-26] MEDS: SODIUM BICARBONATE TAB 650 MG TAB PO SCH ×2 (07:55→21:07)
[2017-09-26] MEDS: HEPARIN SODIUM,PORCINE 5,000 UNIT/ML 1 ML VIAL SQ SCH ×2 (07:55→16:29)
[2017-09-26] MEDS: INSULIN ASPART 100 UNIT/ML 1 ML 10 ML VIAL SQ SCH ×4 (07:55→21:11)
[2017-09-26] MEDS: METOPROLOL TARTRATE 12.5 MG TAB PO SCH ×2 (07:55→21:08)
[2017-09-26] MEDS: TAMSULOSIN 0.4 MG CAP.ER.24H PO SCH ×2 (07:55→21:07)
[2017-09-26] MEDS: PANTOPRAZOLE 40 MG TABLET PO SCH (07:55)
[2017-09-26] MEDS: hydrALAZINE HCL 25 MG TAB PO SCH ×3 (07:55→16:29)
[2017-09-26] MEDS: ISOSORBIDE MONONITRATE ER 30 MG TAB.ER.24H PO SCH (07:55)
[2017-09-26] MEDS: predniSONE 20 MG TAB PO SCH (07:55)
[2017-09-26] MEDS: CLOTRIMAZOLE/BETAMETH 1-0.05% CREAM 45 GM TUBE TOPICAL SCH ×2 (07:56→21:13)
[2017-09-26] MEDS: BUDESONIDE 1 MG/2 ML NEBU INHALATION SCH ×2 (08:19→19:32)
[2017-09-26] MEDS: IPRATROPIUM-ALBUTEROL 3 ML NEB INHALATION SCH ×4 (08:19→19:33)
[2017-09-26] MEDS: FORMOTEROL FUMARATE 20 MCG/2 ML NEBU INHALATION SCH ×2 (08:19→19:44)
[2017-09-26 08:35] LABS: Anisocytosis Slight; Basophils % (A) 0 %; Eosinophils % (A) 0 %; HCT 26.9 % (39.0-53.0); HGB 8.3 gm/dL (13.0-17.5); Hypochromasia Slight; Lymphocytes % (A) 9 %; MCH 27.3 pg (25.0-35.0); MCHC 30.7 g/dL (31.0-37.0); Mean Platelet Volume 8.2; Monocytes # (A) 0.7 k/uL (0-1.0); Monocytes % (A) 7 %; Neutrophils # (A) 8.7 k/uL (1.3-7.7); Neutrophils % (A) 83 %; Platelet Count 161 k/uL (150-450); RBC 3.02 m/uL (4.30-5.90); RDW 16.1 % (11.5-15.5); WBC 10.5 k/uL (3.8-10.6)
[2017-09-26 08:43] LABS: Calcium 8.2 mg/dL (8.4-10.2); Potassium 4.9 mmol/L (3.5-5.1)
[2017-09-26] MEDS: INSULIN DETEMIR 100 UNIT/ML 10 ML VIAL SQ SCH (09:32)
--- NOTE | 2017-09-26 09:57 | XR ---
EXAMINATION TYPE: XR chest 1V DATE OF EXAM: 09/26/2017 COMPARISON: 09/22/2017 HISTORY: Congestive heart failure. Follow-up exam for pulmonary edema and pneumonia. TECHNIQUE: Single frontal view of the chest is obtained. FINDINGS: There is a persistent left midlung opacity with peripheral Magui B lines and mild interst itial prominence is mild cephalization. Trace right pleural effusion layers laterally. Cardiomediasti nal silhouette is enlarged with post CABG changes the chest. Osseous structures are intact. IMPRESSION: Persistent left midlung opacity in the setting of trace right pleural effusion, cardiome jacquelyn and interstitial edema likely relates to confluent pulmonary edema. Continued follow-up is recom mended.
[2017-09-26 12:12] LABS: Glucose,Whole Blood 156 mg/dL (75-99)
[2017-09-26] MEDS: SODIUM CHLORIDE 0.9% 1,000 ML IV SCH (12:13)
[2017-09-26 16:54] LABS: Glucose,Whole Blood 185 mg/dL (75-99)
--- NOTE | 2017-09-26 17:17 | PN ---
PROGRESS NOTE DATE OF SERVICE: 09/26/2017. REASON FOR FOLLOWUP: MRSA bacteremia secondary to urinary source. INTERVAL HISTORY: The patient is currently afebrile, has been breathing comfortably. Denies having any chest pain or shortness of breath or cough. No abdominal pain or any diarrhea. PHYSICAL EXAMINATION: Blood pressure 136/63, pulse of 66, temperature 97.7. He is 100% on 4 L nasal cannula. General description is an elderly male lying in bed in no distress. RESPIRATORY SYSTEM: Unlabored breathing. Clear to auscultation anteriorly. HEART: S1, S2. Regular rate and rhythm. ABDOMEN: Soft. No tenderness. EXTREMITIES: No edema of feet. LABS: Hemoglobin 8.3, white count 10.5. BUN of 102, creatinine 4.92. Blood culture repeat 09/17 has been negative. DIAGNOSTIC IMPRESSION AND PLAN: Patient with methicillin-resistant Staphylococcus aeruginosa bacteremia secondary to urinary source. Follow-up blood culture from 09/17 has been negative. Currently on daptomycin. That will be continued until 10/02/2017 to finish a 2-week course of therapy from his negative blood culture. Continue with supportive care. MMODL / IJN: [id number] /
--- NOTE | 2017-09-26 18:02 | P.PN ---
Subjective ogress Note Date: 09/23/17 This is a 71-year-old male one of Dr. Lucas Gallo's patient with past medical history of hypertension, hyperlipidemia, diabetes, COPD, chronic systolic and possible diastolic heart failure, alcoholism, coronary artery disease and underwent CABG 2015 ended up having multiple complications and the multiple rehospitalization for worsening shortness of breath, A. fib and other complication. He has had several admissions over the past 2 months for recurrent metabolic encephalopathy with sepsis of possible aspiration pneumonia and urinary tract infection. He has been followed by Dr. Nicholas, Dr. Louis. Thought changes were possibly related to narcotic use. On recent admission in July patient did require intubation. He is currently residing at [facility] on the care of Dr. Blackman and most recent discharge was on September 05. Patient was brought in by EMS on September 14 to the emergency center due to mental status changes. Patient was treated with increased Lasix and return to the shelter for CHF exacerbation. His vital signs were stable at that time , BUN 36 creatinine 2.08, normal white count. Troponin was negative. Patient return to [facility] emergency center on September 15 due to pulse ox of 80s, generalized weakness and decreased level of consciousness. Patient barely was placed on oxygen by EMS and became much more alert. Temperature max is 100.2, vital signs were otherwise stable. Initial pulse ox was 89%. EKG was atrial fibrillation controlled rate with T-wave inversion in the inferior leads. Patient was admitted to the selective care unit and consult placed with cardiology and pulmonary medicine. Patient's mentation appears to be back to his baseline. He is more alert and interactive today is feeling little bit better slightly decreased shortness of breath compared to before. Patient be seen cardiology still on diuretics whether can benefit from any further testing cardiac-hardwick are not is to be determined. Also patient has passed his swallow eval despite having aspiration pneumonia being treated for. 09/18/2017: Patient is doing much better is drinking his coffee this had his breakfast earlier. His microbiology came back positive for MRSA and enterococcus, patient is seen infectious disease was switched from vancomycin to daptomycin. 09/19: Patient is clinically doing much better surprisingly his chest x-ray came back more positive for low below pneumonia with multi-patchy area in the chest, still treated for UTI and aspiration pneumonia with the same antibiotics. Patient is interacting more and his acute mental status change reverse almost back to its baseline. 09/20: Patient has been followed by phone or medicine and cardiology. Cardiology has signed off and following as needed only. Dr. Louis is following for MRSA bacteremia likely urinary tract infection is the source. Grullon catheter has been exchanged. Plan is for patient to be on daptomycin for 2 weeks. Midline is to be placed today. Patient has been afebrile. Pulse ox 95 % on 6 L nasal cannula. Today, BUN 46, creatinine 2.94 potassium 5.4. Hemoglobin is stable at 8.9. Other electrolytes within normal limits and liver function tests within normal limits. Patient was started on Solu-Medrol 60 mg every 6 hours bipolar medicine yesterday. Blood sugars are running in the 200s.Solu-Medrol will be decreased to 40 mg every 8 hours. We'll plan for discharge tomorrow. 09/21: Pulse ox is 97% on 3 L nasal cannula. Renal function is worsening with BUN 61 and creatinine 3.65, hemoglobin 8.2. Plan is for renal function to be monitored at the shelter. Patient denies any difficulty breathing. Patient is drowsy but answers questions appropriately and denies any new complaints. He denies any abdominal pain. No nausea or vomiting. Grullon catheter remains in place. Plan was for patient to be discharged to [facility] but insurance authorization was still pending. 09/22: Insurance authorization has been obtained but discharge is being held as patient's renal function has continued to climb and he is at a BUN of 75 and creatinine 3.99. Consult added for Dr. Mcbride. Lasix has been discontinued and patient started on IV fluids 0.9 normal saline at 75 mL per hour. Solu- Medrol will be decreased to 40 mg every 12 hours. Blood sugars have been running high for which Levemir 10 units daily added. Patient states that he is not feeling good today. He is not eating or drinking very much. He does have Glucerna. He states he has no appetite. 09/23: Patient sitting up in bed is feeling better today he denies any chest pain , is less short of breath, he continues to have Grullon catheter in place, we will postpone his discharge until Tuesday due to his acute kidney injury. 09/24: Total: Patient wanted to get up from bed, however he is recently , otherwise is comfortable, patient pulled out th midline last night, this would be reinserted for new midline and ordered for Tuesday, completed IV antibiotics daptomycin for MRSA bacteremia until October 02 by infectious disease, creatinine remains to be elevated at 4.7, and admitting creatinine of 2.5. With catheter draining clear, Grullon catheter remaining clear urine nephrology following., 09/25: Patient is comfortable today, however creatinine reached be high at 4.5 bun at 99. hyperkalemia 5.5 kayexelate 15 mg x 1 dose weekly Solu-Medrol and discontinue IV, oral prednisone 40the morning, midline IV access anticipated to be performed in the morning 09/26 creatinine remains higher with worsening of BUN, nephrology discussed hemodialysis, patient cannot make his own well-informed medical decision, KAIA is the youngest son, and I've spoken to him to make the final decision to assist with the father, and family members as well. The patient himself when inquired, does not want to be on dialysis, he wants his youngest son to assist, he would await family decision with KAIA next of kin [facility] for final recommendation Objective - Vital Signs Vital signs: Vital Signs Temp 97.7 F 09/26/17 14:40 Pulse 68 09/26/17 15:54 Resp 22 09/26/17 14:40 BP 136/63 09/26/17 14:40 Pulse Ox 100 09/26/17 14:40 Intake & Output 09/25/17 09/26/17 09/26/17 18:59 06:59 18:59 Intake Total 300 140 Output Total 250 350 Balance -250 -50 140 Weight 72.5 kg Intake: Intake, IV Titration 140 Amount Sodium Chloride 0.9% 1, 140 000 ml @ 70 mls/hr IV . [id number] [facility] Rx#:[id number] Oral 300 Output: Urine 250 350 Other: Voiding Method Indwelling Catheter Indwelling Catheter Indwelling Catheter # Bowel Movements 0 - Constitutional General appearance: Present: cooperative, no acute distress - EENT Eyes: Present: anicteric sclerae, EOMI, dentition normal, normal appearance ENT: Present: NA/AT - Neck Neck: Present: normal ROM - Respiratory Respiratory: bilateral: diminished, rhonchi, prolonged expiration, prolonged inspiration, negative: rales - Cardiovascular Rhythm: regular Heart sounds: normal: S1, S2 - Gastrointestinal General gastrointestinal: Present: normal bowel sounds, soft - Integumentary Integumentary: Present: decreased turgor, normal - Neurologic Neurologic: Present: CNII-XII intact - Musculoskeletal Musculoskeletal: Present: generalized weakness - Psychiatric Psychiatric: Present: A&O x's 3, appropriate affect - Labs CBC & Chem 7: 09/26/17 07:52 09/26/17 07:52 Labs: Abnormal Lab Results - Last 24 Hours (Table) 09/25/17 09/26/17 09/26/17 Range/Units 20:53 03:10 07:24 RBC (4.30-5.90) m/uL Hgb (13.0-17.5) gm/dL Hct (39.0-53.0) % MCHC (31.0-37.0) g/dL RDW (11.5-15.5) % Neutrophils # (1.3-7.7) k/uL BUN (9-20) mg/dL Creatinine (0.66-1.25) mg/dL Glucose (74-99) mg/dL POC Glucose (mg/dL) 257 H 124 H 142 H (75-99) mg/dL Calcium (8.4-10.2) mg/dL 09/26/17 09/26/17 09/26/17 Range/Units 07:52 07:52 11:34 RBC 3.02 L (4.30-5.90) m/uL Hgb 8.3 L (13.0-17.5) gm/dL Hct 26.9 L (39.0-53.0) % MCHC 30.7 L (31.0-37.0) g/dL RDW 16.1 H (11.5-15.5) % Neutrophils # 8.7 H (1.3-7.7) k/uL BUN 102 H* (9-20) mg/dL Creatinine 4.92 H (0.66-1.25) mg/dL Glucose 125 H (74-99) mg/dL POC Glucose (mg/dL) 156 H (75-99) mg/dL Calcium 8.2 L (8.4-10.2) mg/dL 09/26/17 Range/Units 16:49 RBC (4.30-5.90) m/uL Hgb (13.0-17.5) gm/dL Hct (39.0-53.0) % MCHC (31.0-37.0) g/dL RDW (11.5-15.5) % Neutrophils # (1.3-7.7) k/uL BUN (9-20) mg/dL Creatinine (0.66-1.25) mg/dL Glucose (74-99) mg/dL POC Glucose (mg/dL) 185 H (75-99) mg/dL Calcium (8.4-10.2) mg/dL Assessment and Plan Plan: 1. MRSA bacteremia secondary to urinary tract infection currently on daptomycin , currently blood cultures so far negative, to complete Total until 10/02/2017 through a midline to complete course. 2. Acute hypoxic respiratory failure secondary to bilateral pleural effusions with bibasilar atelectasis due to acute on chronic diastolic heart failure. Pulmonary medicine has ruled out pneumonia.3. Pneumonia ruled out by pulmonary medicine. 3. Hypoxia encephalopathy most likely secondary to low pulse ox. Patient's mentation improved with oxygen therapy. Continue as in #1., Has improved . Maintaining at 2 L to 3 L nasal cannula 4. Acute kidney injury with CKD stage III critical azotemia now showing an end- stage-like picture with recent acute failure secondary to ATN secondary to sepsis worsening creatinine. Patient started on IV fluids 0.9 normal saline at 50 mL per hour. Consult with Dr. Mcbride is appreciated. Continue sodium bicarb 650 mg twice daily. Patient is off diuretics, creatinine higher than baseline amlodipine discontinued by nephrology, hydralazine. Nephrology recommending hemodialysis however outlook is not showing a good prognosis secondary to poor deconditioning and multiple comorbidities including bacteremia. hospice is an option without for forgoing any dialysis procedure. Family to decide in the next 24 hours starting September 26 5. Arrhythmia history with prior Nonsustained ventricular tachycardia on 2015 H and was seen by cardiology echocardiogramJuly 2015 showed atrial fibrillation with small pericardial effusion noted ejection fraction 45-50% inferolateral hypokinesis with palpation of LA size over 40. 6. Grullon catheter associated MRSA urinary tract infection and bacteremia with sepsis Dr. Louis recommends daptomycin. Course will be completed on October 04. 7. CAD post CABG. continue aspirin 81 mg orally once every day, Lipitor 40 mg daily, Lopressor. 8. Diabetes mellitus type II with hyperglycemia secondary to steroids: Levemir has been added. Continue with NovoLog sliding scale. Patient has been off scheduled insulin due to hypoglycemia. 9. Hypertensive cardiovascular disease. hydralazine decreased to 25 mg mg 3 times daily, LISINOPRIL has been on hold secondary to worsening creatinine, was on lisinopril 5 mg daily. lopressor 12.5 mg twice daily. 10. Hyperlipidemia: Continue statin. 11. Chronic A. fib. Patient is no longer on Coumadin. This may be related to risk of falls. 12. Recurrent depression: Continue Paxil. 13. Seizure history: Has been on Keppra 750 g twice a day with no new seizure activity. 14. Urinary retention with BPH: Patient has chronic Grullon catheter. Continue Flomax. 15. Severe GERD: Will add Protonix 40 mg daily 16. Severe protein calorie malnutrition due to lack of oral intake. Protein supplement. 17. Chronic low back pain. No change. Patient is off Isabella 8. Azotemia with worsening creatinine, Solu-Medrol discontinued 6 63: Oral prednisone 140a morning continue PPI Protonix Discharge plan: [facility] once stabilized from nephrology standpoint
--- NOTE | 2017-09-26 18:56 | PN ---
PROGRESS NOTE Patient is seen for followup for acute kidney injury. His renal function has worsened. Overall, patient has not been communicating much. Very poor oral intake. Urine output has also decreased. The patient had about 100 mL for the last 8 hours. I will start him on IV fluids. However, patient will need renal replacement therapy. We need to pursue aggressive medical care. PHYSICAL EXAMINATION: Blood pressure is 136/63, heart rate 66 per minute. Patient is afebrile. Examination of the heart S1, S2. Examination of the lungs decreased breath sounds at the bases. Abdomen is soft, nontender. Examination of lower extremity shows no evidence of edema. [employer] SU[employer] ASSISTANT exam cannot be performed. LAB: Show sodium 143, potassium 4.9, chloride 104, BUN 102, serum creatinine 4.9, hemoglobin 8.3 g/dL. ASSESSMENT: 1. Acute kidney injury, acute tubular necrosis, currently nonoliguric, however with poor urine output. The patient has indwelling Grullon catheter. His renal function has deteriorated. The patient should undergo hemodialysis if we need to continue with aggressive medical care. 2. Anemia, maintained on Aranesp. No evidence of iron deficiency on iron studies. 3. Urinary tract infection with urine culture growing Methicillin-resistant Staphylococcus aureus and Enterococcus. 4. Methicillin-resistant Staphylococcus aureus bacteremia. Maintained on daptomycin. 5. Volume depletion. Resume IV fluids. PLAN: Resume IV fluids. Need to consider starting renal replacement therapy, if aggressive medical measures will need to be pursued. MMODL / IJN: [id number] /
[2017-09-26 20:50] LABS: Glucose,Whole Blood 265 mg/dL (75-99)
[2017-09-26] MEDS: MONTELUKAST 10 MG TAB PO SCH (21:08)
[2017-09-26] MEDS: MULTIVITAMINS, THERA 1 EACH TAB PO SCH (21:08)
[2017-09-27] MEDS: HEPARIN SODIUM,PORCINE 5,000 UNIT/ML 1 ML VIAL SQ SCH ×4 (00:07→23:15)
[2017-09-27] MEDS: SODIUM CHLORIDE 0.9% 1,000 ML IV SCH ×2 (06:26→16:00)
[2017-09-27 07:10] LABS: Glucose,Whole Blood 306 mg/dL (75-99)
[2017-09-27] MEDS: BUDESONIDE 1 MG/2 ML NEBU INHALATION SCH ×2 (07:48→19:11)
[2017-09-27] MEDS: IPRATROPIUM-ALBUTEROL 3 ML NEB INHALATION SCH ×4 (07:48→19:12)
[2017-09-27] MEDS: FORMOTEROL FUMARATE 20 MCG/2 ML NEBU INHALATION SCH ×2 (07:48→19:11)
[2017-09-27] MEDS: INSULIN ASPART 100 UNIT/ML 1 ML 10 ML VIAL SQ SCH ×4 (07:54→20:52)
[2017-09-27] MEDS: CLOTRIMAZOLE/BETAMETH 1-0.05% CREAM 45 GM TUBE TOPICAL SCH ×2 (07:55→20:11)
[2017-09-27] MEDS: hydrALAZINE HCL 25 MG TAB PO SCH ×3 (07:55→17:20)
[2017-09-27] MEDS: METOPROLOL TARTRATE 12.5 MG TAB PO SCH ×2 (07:56→20:09)
[2017-09-27] MEDS: PARoxetine 10 MG TAB PO SCH (07:56)
[2017-09-27] MEDS: predniSONE 20 MG TAB PO SCH (07:56)
[2017-09-27] MEDS: PANTOPRAZOLE 40 MG TABLET PO SCH (07:56)
[2017-09-27] MEDS: ISOSORBIDE MONONITRATE ER 30 MG TAB.ER.24H PO SCH (07:56)
[2017-09-27] MEDS: SODIUM BICARBONATE TAB 650 MG TAB PO SCH ×2 (07:57→20:07)
[2017-09-27] MEDS: TAMSULOSIN 0.4 MG CAP.ER.24H PO SCH ×2 (07:57→20:07)
[2017-09-27] MEDS: INSULIN DETEMIR 100 UNIT/ML 10 ML VIAL SQ SCH (08:01)
[2017-09-27 08:51] LABS: Anisocytosis Slight; Basophils % (A) 0 %; Eosinophils % (A) 0 %; HCT 28.1 % (39.0-53.0); HGB 8.6 gm/dL (13.0-17.5); Hypochromasia Moderate; Lymphocytes # (A) 0.8 k/uL (1.0-4.8); Lymphocytes % (A) 8 %; MCH 27.8 pg (25.0-35.0); MCHC 30.5 g/dL (31.0-37.0); MCV 91.1 fL (80.0-100.0); Mean Platelet Volume 7.8; Monocytes # (A) 0.6 k/uL (0-1.0); Monocytes % (A) 6 %; Neutrophils # (A) 8.6 k/uL (1.3-7.7); Neutrophils % (A) 85 %; Platelet Count 168 k/uL (150-450); RBC 3.08 m/uL (4.30-5.90); RDW 16.4 % (11.5-15.5); WBC 10.1 k/uL (3.8-10.6)
[2017-09-27 08:58] LABS: Potassium 4.8 mmol/L (3.5-5.1)
[2017-09-27 12:07] LABS: Glucose,Whole Blood 255 mg/dL (75-99)
[2017-09-27] MEDS: ACETAMINOPHEN TAB 500 MG TAB PO PRN (13:19)
--- NOTE | 2017-09-27 15:06 | PN ---
PROGRESS NOTE DATE OF SERVICE: 09/27/2017. REASON FOR FOLLOWUP: MRSA bacteremia secondary to urinary source. INTERVAL HISTORY: The patient is currently afebrile, breathing comfortably. No chest pain or shortness of breath, cough or abdominal pain. PHYSICAL EXAMINATION: Blood pressure 145/56, pulse of 67, temperature 96.4. He is 92% on 4 L nasal cannula. General description is an elderly male lying in bed in no distress. RESPIRATORY SYSTEM: Unlabored breathing. Clear to auscultation anteriorly. HEART: S1, S2. Regular rate and rhythm. ABDOMEN: Soft, no tenderness. DIAGNOSTIC IMPRESSION/PLAN: Patient with MRSA bacteremia secondary to urinary source. Follow up blood culture has been negative. Patient is currently on daptomycin. That is to continue until 10/02/2017 to finish 2 week course of therapy from negative blood cultures. Continue supportive care. MMVALENTEL / IJN: [id number] /
--- NOTE | 2017-09-27 15:09 | P.PN ---
Subjective ogress Note Date: 09/23/17 This is a 71-year-old male one of Dr. Lucas Gallo's patient with past medical history of hypertension, hyperlipidemia, diabetes, COPD, chronic systolic and possible diastolic heart failure, alcoholism, coronary artery disease and underwent CABG 2015 ended up having multiple complications and the multiple rehospitalization for worsening shortness of breath, A. fib and other complication. He has had several admissions over the past 2 months for recurrent metabolic encephalopathy with sepsis of possible aspiration pneumonia and urinary tract infection. He has been followed by Dr. Nicholas, Dr. Louis. Thought changes were possibly related to narcotic use. On recent admission in July patient did require intubation. He is currently residing at [facility] on the care of Dr. Blackman and most recent discharge was on September 05. Patient was brought in by EMS on September 14 to the emergency center due to mental status changes. Patient was treated with increased Lasix and return to the longterm for CHF exacerbation. His vital signs were stable at that time , BUN 36 creatinine 2.08, normal white count. Troponin was negative. Patient return to [facility] emergency center on September 15 due to pulse ox of 80s, generalized weakness and decreased level of consciousness. Patient barely was placed on oxygen by EMS and became much more alert. Temperature max is 100.2, vital signs were otherwise stable. Initial pulse ox was 89%. EKG was atrial fibrillation controlled rate with T-wave inversion in the inferior leads. Patient was admitted to the selective care unit and consult placed with cardiology and pulmonary medicine. Patient's mentation appears to be back to his baseline. He is more alert and interactive today is feeling little bit better slightly decreased shortness of breath compared to before. Patient be seen cardiology still on diuretics whether can benefit from any further testing cardiac-hardwick are not is to be determined. Also patient has passed his swallow eval despite having aspiration pneumonia being treated for. 09/18/2017: Patient is doing much better is drinking his coffee this had his breakfast earlier. His microbiology came back positive for MRSA and enterococcus, patient is seen infectious disease was switched from vancomycin to daptomycin. 09/19: Patient is clinically doing much better surprisingly his chest x-ray came back more positive for low below pneumonia with multi-patchy area in the chest, still treated for UTI and aspiration pneumonia with the same antibiotics. Patient is interacting more and his acute mental status change reverse almost back to its baseline. 09/20: Patient has been followed by phone or medicine and cardiology. Cardiology has signed off and following as needed only. Dr. Louis is following for MRSA bacteremia likely urinary tract infection is the source. Grullon catheter has been exchanged. Plan is for patient to be on daptomycin for 2 weeks. Midline is to be placed today. Patient has been afebrile. Pulse ox 95 % on 6 L nasal cannula. Today, BUN 46, creatinine 2.94 potassium 5.4. Hemoglobin is stable at 8.9. Other electrolytes within normal limits and liver function tests within normal limits. Patient was started on Solu-Medrol 60 mg every 6 hours bipolar medicine yesterday. Blood sugars are running in the 200s.Solu-Medrol will be decreased to 40 mg every 8 hours. We'll plan for discharge tomorrow. 09/21: Pulse ox is 97% on 3 L nasal cannula. Renal function is worsening with BUN 61 and creatinine 3.65, hemoglobin 8.2. Plan is for renal function to be monitored at the longterm. Patient denies any difficulty breathing. Patient is drowsy but answers questions appropriately and denies any new complaints. He denies any abdominal pain. No nausea or vomiting. Grullon catheter remains in place. Plan was for patient to be discharged to [facility] but insurance authorization was still pending. 09/22: Insurance authorization has been obtained but discharge is being held as patient's renal function has continued to climb and he is at a BUN of 75 and creatinine 3.99. Consult added for Dr. Mcbride. Lasix has been discontinued and patient started on IV fluids 0.9 normal saline at 75 mL per hour. Solu- Medrol will be decreased to 40 mg every 12 hours. Blood sugars have been running high for which Levemir 10 units daily added. Patient states that he is not feeling good today. He is not eating or drinking very much. He does have Glucerna. He states he has no appetite. 09/23: Patient sitting up in bed is feeling better today he denies any chest pain , is less short of breath, he continues to have Grullon catheter in place, we will postpone his discharge until Tuesday due to his acute kidney injury. 09/24: Total: Patient wanted to get up from bed, however he is recently , otherwise is comfortable, patient pulled out th midline last night, this would be reinserted for new midline and ordered for Tuesday, completed IV antibiotics daptomycin for MRSA bacteremia until October 02 by infectious disease, creatinine remains to be elevated at 4.7, and admitting creatinine of 2.5. With catheter draining clear, Grullon catheter remaining clear urine nephrology following., 09/25: Patient is comfortable today, however creatinine reached be high at 4.5 bun at 99. hyperkalemia 5.5 kayexelate 15 mg x 1 dose weekly Solu-Medrol and discontinue IV, oral prednisone 40the morning, midline IV access anticipated to be performed in the morning 09/26 creatinine remains higher with worsening of BUN, nephrology discussed hemodialysis, patient cannot make his own well-informed medical decision, KAIA is the youngest son, and I've spoken to him to make the final decision to assist with the father, and family members as well. The patient himself when inquired, does not want to be on dialysis, he wants his youngest son to assist, he would await family decision with KAIA next of kin [place] for final recommendation 09/27: Family undecided yet regarding renal replacement therapy, patient cannot fully understand the consequences and the indication for renal replacement therapy, patient states that if he could avoid it he would not go for dialysishowever he also wants things that are for him.daughter at bedside, Chintan, updated regards to outcome,patient still remains severely azotemiaBUN of 105 creatinine 4.75 potassium 4.8 Objective - Vital Signs Vital signs: Vital Signs Temp 96.1 F L 09/27/17 14:35 Pulse 57 L 09/27/17 14:35 Resp 18 09/27/17 14:35 BP 158/72 09/27/17 14:35 Pulse Ox 97 09/27/17 14:35 Intake & Output 09/26/17 09/27/17 09/27/17 18:59 06:59 18:59 Intake Total 740 Output Total 400 400 225 Balance 340 -400 -225 Weight 72.5 kg Intake: Intake, IV Titration 140 Amount Sodium Chloride 0.9% 1, 140 000 ml @ 70 mls/hr IV . [id number] [facility] Rx#:[id number] Oral 600 Output: Urine 400 400 225 Other: Voiding Method Indwelling Catheter Indwelling Catheter Indwelling Catheter # Bowel Movements 0 - Constitutional General appearance: Present: cooperative, no acute distress - EENT Eyes: Present: anicteric sclerae, EOMI, PERRLA ENT: Present: NA/AT - Neck Neck: Present: normal ROM - Respiratory Respiratory: bilateral: rhonchi - Cardiovascular Rhythm: regular Heart sounds: normal: S1, S2 Abnormal Heart Sounds: Absent: systolic murmur, diastolic murmur, rub, S3 Gallop , S4 Gallop, click, other - Gastrointestinal General gastrointestinal: Present: normal bowel sounds, soft - Integumentary Integumentary: Present: decreased turgor, normal - Neurologic Neurologic: Present: CNII-XII intact - Musculoskeletal Musculoskeletal: Present: generalized weakness, strength equal bilaterally - Psychiatric Psychiatric: Present: A&O x's 3, appropriate affect - Labs CBC & Chem 7: 09/27/17 08:00 09/27/17 08:00 Labs: Abnormal Lab Results - Last 24 Hours (Table) 09/26/17 09/26/17 09/27/17 Range/Units 16:49 20:49 07:08 RBC (4.30-5.90) m/uL Hgb (13.0-17.5) gm/dL Hct (39.0-53.0) % MCHC (31.0-37.0) g/dL RDW (11.5-15.5) % Neutrophils # (1.3-7.7) k/uL Lymphocytes # (1.0-4.8) k/uL BUN (9-20) mg/dL Creatinine (0.66-1.25) mg/dL Glucose (74-99) mg/dL POC Glucose (mg/dL) 185 H 265 H 306 H (75-99) mg/dL Calcium (8.4-10.2) mg/dL 09/27/17 09/27/17 09/27/17 Range/Units 08:00 08:00 12:03 RBC 3.08 L (4.30-5.90) m/uL Hgb 8.6 L (13.0-17.5) gm/dL Hct 28.1 L (39.0-53.0) % MCHC 30.5 L (31.0-37.0) g/dL RDW 16.4 H (11.5-15.5) % Neutrophils # 8.6 H (1.3-7.7) k/uL Lymphocytes # 0.8 L (1.0-4.8) k/uL BUN 105 H* (9-20) mg/dL Creatinine 4.78 H (0.66-1.25) mg/dL Glucose 276 H (74-99) mg/dL POC Glucose (mg/dL) 255 H (75-99) mg/dL Calcium 8.0 L (8.4-10.2) mg/dL Assessment and Plan Plan: 1. MRSA bacteremia secondary to urinary tract infection currently on daptomycin , currently blood cultures so far negative, to complete Total until 10/02/2017 through a midline to complete course. 2. Acute hypoxic respiratory failure secondary to bilateral pleural effusions with bibasilar atelectasis due to acute on chronic diastolic heart failure. Pulmonary medicine has ruled out pneumonia.3. Pneumonia ruled out by pulmonary medicine. 3. Hypoxia encephalopathy most likely secondary to low pulse ox. Patient's mentation improved with oxygen therapy. Continue as in #1., Has improved . Maintaining at 2 L to 3 L nasal cannula 4. Acute kidney injury with CKD stage III critical azotemia now showing an end- stage-like picture with recent acute failure secondary to ATN secondary to sepsis worsening creatinine. Patient started on IV fluids 0.9 normal saline at 50 mL per hour. Consult with Dr. Mcbride is appreciated. Continue sodium bicarb 650 mg twice daily. Patient is off diuretics, creatinine higher than baseline amlodipine discontinued by nephrology, hydralazine. Nephrology recommending hemodialysis however outlook is not showing a good prognosis secondary to poor deconditioning and multiple comorbidities including bacteremia. hospice is an option without for forgoing any dialysis procedure. Family to decide in the next 24 hours starting September 26 5. Arrhythmia history with prior Nonsustained ventricular tachycardia on 2015 H and was seen by cardiology echocardiogramJuly 2016 showed atrial fibrillation with small pericardial effusion noted ejection fraction 45-50% inferolateral hypokinesis with palpation of LA size over 40. 6. Grullon catheter associated MRSA urinary tract infection and bacteremia with sepsis Dr. Louis recommends daptomycin. Course will be completed on October 04. 7. CAD post CABG. continue aspirin 81 mg orally once every day, Lipitor 40 mg daily, Lopressor. 8. Diabetes mellitus type II with hyperglycemia secondary to steroids: Levemir has been added. Continue with NovoLog sliding scale. Patient has been off scheduled insulin due to hypoglycemia. 9. Hypertensive cardiovascular disease. hydralazine decreased to 25 mg mg 3 times daily, LISINOPRIL has been on hold secondary to worsening creatinine, was on lisinopril 5 mg daily. lopressor 12.5 mg twice daily. 10. Hyperlipidemia: Continue statin. 11. Chronic A. fib. Patient is no longer on Coumadin. This may be related to risk of falls. 12. Recurrent depression: Continue Paxil. 13. Seizure history: Has been on Keppra 750 g twice a day with no new seizure activity. 14. Urinary retention with BPH: Patient has chronic Grullon catheter. Continue Flomax. 15. Severe GERD: Will add Protonix 40 mg daily 16. Severe protein calorie malnutrition due to lack of oral intake. Protein supplement. 17. Chronic low back pain. No change. Patient is off [place] 8. Azotemia with worsening creatinine, Solu-Medrol discontinued 6 63: Oral prednisone 140a morning continue PPI Protonix Discharge plan: [facility] once stabilized from nephrology standpoint
[2017-09-27 16:49] LABS: Glucose,Whole Blood 244 mg/dL (75-99)
[2017-09-27] MEDS: MULTIVITAMINS, THERA 1 EACH TAB PO SCH (20:08)
[2017-09-27] MEDS: MONTELUKAST 10 MG TAB PO SCH (20:08)
[2017-09-27 20:39] LABS: Glucose,Whole Blood 355 mg/dL (75-99)
--- NOTE | 2017-09-27 22:39 | PN ---
PROGRESS NOTE Patient is seen for followup for acute kidney injury. The patient's renal function had deteriorated significantly yesterday and family was talked to regarding renal replacement therapy. It looks like they would like to proceed with dialysis, although they have not completely decided yet. The patient was started on IV fluids yesterday. His creatinine is slightly improved today, but remains significantly elevated. Today it is 4.7 from 4.9 yesterday. The patient is a bit more awake and he is able to converse. EXAMINATION: Blood pressure was 158/72, heart rate 57 per minute. Patient is afebrile. HEART: S1, S2. LUNGS: Bilateral breath sounds are heard. Abdomen is soft, nontender. Lower extremities show no evidence of edema. [employer] is grossly intact. Patient moving all 4 extremities. LABS: Show sodium 144, potassium 4.8, chloride 104, BUN 105, serum creatinine 4.78. Hemoglobin 8.6 g/dL. ASSESSMENT: 1. Acute kidney injury, acute tubular necrosis, nonoliguric, currently with indwelling Grullon catheter. Serum creatinine is slightly improved from yesterday, although remain significantly elevated. Family is currently undecided about dialysis. He does not need an urgent treatment today. Clinically, patient is slightly improved from yesterday. 2. Intravascular volume depletion. Continue with IV fluids. 3. Anemia. No active bleeding noted. Patient is maintained on Aranesp. 4. Methicillin-resistant Staphylococcus aureus urinary tract infection and methicillin- resistant Staphylococcus aureus bacteremia. 5. Urine tract infection with Enterococcus faecalis as well. PLAN: Continue IV fluids. Repeat labs in a.m. If renal function does not continue to improve, we may need to proceed with dialysis. MMODL / IJN: [id number] /
[2017-09-28] MEDS: SODIUM CHLORIDE 0.9% 1,000 ML IV SCH ×3 (06:08→14:29)
[2017-09-28 07:23] LABS: Glucose,Whole Blood 268 mg/dL (75-99)
[2017-09-28] MEDS: FORMOTEROL FUMARATE 20 MCG/2 ML NEBU INHALATION SCH ×2 (07:32→20:38)
[2017-09-28] MEDS: BUDESONIDE 1 MG/2 ML NEBU INHALATION SCH ×2 (07:32→20:38)
[2017-09-28] MEDS: IPRATROPIUM-ALBUTEROL 3 ML NEB INHALATION SCH ×4 (07:32→20:38)
[2017-09-28] MEDS: INSULIN ASPART 100 UNIT/ML 1 ML 10 ML VIAL SQ SCH ×4 (07:53→21:31)
[2017-09-28] MEDS: SODIUM BICARBONATE TAB 650 MG TAB PO SCH ×2 (07:54→21:29)
[2017-09-28] MEDS: PARoxetine 10 MG TAB PO SCH (07:54)
[2017-09-28] MEDS: INSULIN DETEMIR 100 UNIT/ML 10 ML VIAL SQ SCH (07:54)
[2017-09-28] MEDS: METOPROLOL TARTRATE 12.5 MG TAB PO SCH ×2 (07:55→21:29)
[2017-09-28] MEDS: HEPARIN SODIUM,PORCINE 5,000 UNIT/ML 1 ML VIAL SQ SCH ×2 (07:55→16:01)
[2017-09-28] MEDS: hydrALAZINE HCL 25 MG TAB PO SCH ×3 (07:56→16:01)
[2017-09-28] MEDS: predniSONE 20 MG TAB PO SCH (07:56)
[2017-09-28] MEDS: TAMSULOSIN 0.4 MG CAP.ER.24H PO SCH ×2 (07:56→21:29)
[2017-09-28] MEDS: PANTOPRAZOLE 40 MG TABLET PO SCH (07:56)
[2017-09-28] MEDS: ISOSORBIDE MONONITRATE ER 30 MG TAB.ER.24H PO SCH (07:57)
[2017-09-28] MEDS: CLOTRIMAZOLE/BETAMETH 1-0.05% CREAM 45 GM TUBE TOPICAL SCH ×2 (07:57→22:16)
[2017-09-28] MEDS ORDERED: TRIAMCINOLONE 0.1% CREAM 80 GM TUBE TOPICAL SCH (10:45)
[2017-09-28] MEDS ORDERED: NYSTATIN 100,000UNIT/GM CREAM 30 GM TUBE TOPICAL SCH (10:45)
[2017-09-28 11:19] LABS: Calcium 7.9 mg/dL (8.4-10.2); Potassium 4.5 mmol/L (3.5-5.1)
[2017-09-28 11:36] LABS: Glucose,Whole Blood 301 mg/dL (75-99)
--- NOTE | 2017-09-28 13:59 | P.PN ---
Subjective Progress Note Date: 09/28/17 This is a 71-year-old male one of Dr. Lucas Gallo's patient with past medical history of hypertension, hyperlipidemia, diabetes, COPD, chronic systolic and possible diastolic heart failure, alcoholism, coronary artery disease and underwent CABG 2015 ended up having multiple complications and the multiple rehospitalization for worsening shortness of breath, A. fib and other complication. He has had several admissions over the past 2 months for recurrent metabolic encephalopathy with sepsis of possible aspiration pneumonia and urinary tract infection. He has been followed by Dr. Nicholas, Dr. Louis. Thought changes were possibly related to narcotic use. On recent admission in July patient did require intubation. He is currently residing at [facility] on the care of Dr. Blackman and most recent discharge was on September 05. Patient was brought in by EMS on September 14 to the emergency center due to mental status changes. Patient was treated with increased Lasix and return [place] [facility] for CHF exacerbation. His vital signs were stable at that time , BUN 36 creatinine 2.08, normal white count. Troponin was negative. Patient return to [facility] emergency center on September 15 due to pulse ox of 80s, generalized weakness and decreased level of consciousness. Patient barely was placed on oxygen by EMS and became much more alert. Temperature max is 100.2, vital signs were otherwise stable. Initial pulse ox was 89%. EKG was atrial fibrillation controlled rate with T-wave inversion in the inferior leads. Patient was admitted to the selective care unit and consult placed with cardiology and pulmonary medicine. Patient's mentation appears to be back to his baseline. He is more alert and interactive today is feeling little bit better slightly decreased shortness of breath compared to before. Patient be seen cardiology still on diuretics whether can benefit from any further testing cardiac-hardwick are not is to be determined. Also patient has passed his swallow eval despite having aspiration pneumonia being treated for. 09/18/2017: Patient is doing much better is drinking his coffee this had his breakfast earlier. His microbiology came back positive for MRSA and enterococcus, patient is seen infectious disease was switched from vancomycin to daptomycin. 09/19: Patient is clinically doing much better surprisingly his chest x-ray came back more positive for low below pneumonia with multi-patchy area in the chest, still treated for UTI and aspiration pneumonia with the same antibiotics. Patient is interacting more and his acute mental status change reverse almost back to its baseline. 09/20: Patient has been followed by phone or medicine and cardiology. Cardiology has signed off and following as needed only. Dr. Louis is following for MRSA bacteremia likely urinary tract infection is the source. Grullon catheter has been exchanged. Plan is for patient to be on daptomycin for 2 weeks. Midline is to be placed today. Patient has been afebrile. Pulse ox 95 % on 6 L nasal cannula. Today, BUN 46, creatinine 2.94 potassium 5.4. Hemoglobin is stable at 8.9. Other electrolytes within normal limits and liver function tests within normal limits. Patient was started on Solu-Medrol 60 mg every 6 hours bipolar medicine yesterday. Blood sugars are running in the 200s.Solu-Medrol will be decreased to 40 mg every 8 hours. We'll plan for discharge tomorrow. 09/21: Pulse ox is 97% on 3 L nasal cannula. Renal function is worsening with BUN 61 and creatinine 3.65, hemoglobin 8.2. Plan is for renal function to be monitored at the [place] [facility]. Patient denies any difficulty breathing. Patient is drowsy but answers questions appropriately and denies any new complaints. He denies any abdominal pain. No nausea or vomiting. Grullon catheter remains in place. Plan was for patient to be discharged to [facility] but insurance authorization was still pending. 09/22: Insurance authorization has been obtained but discharge is being held as patient's renal function has continued to climb and he is at a BUN of 75 and creatinine 3.99. Consult added for Dr. Mcbride. Lasix has been discontinued and patient started on IV fluids 0.9 normal saline at 75 mL per hour. Solu- Medrol will be decreased to 40 mg every 12 hours. Blood sugars have been running high for which Levemir 10 units daily added. Patient states that he is not feeling good today. He is not eating or drinking very much. He does have Glucerna. He states he has no appetite. 09/23: Patient sitting up in bed is feeling better today he denies any chest pain , is less short of breath, he continues to have Grullon catheter in place, we will postpone his discharge until Tuesday due to his acute kidney injury. 09/24: Total: Patient wanted to get up from bed, however he is recently , otherwise is comfortable, patient pulled out th midline last night, this would be reinserted for new midline and ordered for Tuesday, completed IV antibiotics daptomycin for MRSA bacteremia until October 02 by infectious disease, creatinine remains to be elevated at 4.7, and admitting creatinine of 2.5. With catheter draining clear, Grullon catheter remaining clear urine nephrology following., 09/25: Patient is comfortable today, however creatinine reached be high at 4.5 bun at 99. hyperkalemia 5.5 kayexelate 15 mg x 1 dose weekly Solu-Medrol and discontinue IV, oral prednisone 40the morning, midline IV access anticipated to be performed in the morning 09/26 creatinine remains higher with worsening of BUN, nephrology discussed hemodialysis, patient cannot make his own well-informed medical decision, KAIA is the youngest son, and I've spoken to him to make the final decision to assist with the father, and family members as well. The patient himself when inquired, does not want to be on dialysis, he wants his youngest son to assist, he would await family decision with KAIA next of kin [place] for final recommendation 09/27: Family undecided yet regarding renal replacement therapy, patient cannot fully understand the consequences and the indication for renal replacement therapy, patient states that if he could avoid it he would not go for dialysis however he also wants things that are for him.daughter at bedside, Chintan, updated regards to outcome,patient still remains severely azotemiaBUN of 105 creatinine 4.75 potassium 4.8 09/28: Patient and son wish to pursue hemodialysis. Dr. Cabello consult and patient will be transferred to ICU to do catheter placement and start dialysis. Dr. Tang to be updated. BUN is 104 and creatinine 4.41. Blood sugars are running in the 200s and 300s. Levemir dose increased. Objective - Vital Signs Vital signs: Vital Signs Temp 96.8 F L 09/28/17 07:26 Pulse 78 09/28/17 07:53 Resp 19 09/28/17 07:26 BP 150/71 09/28/17 07:26 Pulse Ox 96 09/28/17 07:26 Intake & Output 09/27/17 09/28/17 09/28/17 18:59 06:59 18:59 Intake Total 850 Output Total 225 550 301 Balance -225 300 -301 Weight 72.5 kg Intake: Oral 850 Output: Urine 225 550 300 Stool 1 Other: Voiding Method Indwelling Catheter Indwelling Catheter Indwelling Catheter # Voids 1 # Bowel Movements 0 0 0 - Exam General appearance: Present: cooperative, disheveled, no acute distress. Absent : average body habitus, mild distress, morbidly obese, obese, severe distress, thin - EENT Eyes: Present: normal appearance. Absent: abnormal pupil, anicteric sclerae, disc margins sharp, edentulous, EOMI, PERRLA, fundus normal, photophobia, dentition normal, poor dentition, ptosis, scleral icterus ENT: Present: hard of hearing, pharyngeal erythema. Absent: hearing grossly normal, NA/AT, normal oropharynx, other, thrush, tonsillar exudates, tonsillar swelling Ears: bilateral: normal - Neck Neck: Present: normal ROM. Absent: lymphadenopathy, other, rigidity, stridor, thyromegaly Carotids: bilateral: upstroke normal, upstroke delayed Thyroid: bilateral: normal size - Respiratory Respiratory: bilateral: CTA, diminished, dullness, rales, rhonchi - Cardiovascular Rhythm: regular Heart sounds: normal: S1, S2 Abnormal Heart Sounds: Present: systolic murmur, S3 Gallop - Gastrointestinal General gastrointestinal: Present: decreased bowel sounds, distended, normal bowel sounds, soft. Absent: absent bowel sounds, hepatomegaly, hyperactive bowel sounds, organomegaly, rigid, scaphoid, splenomegaly, tenderness, umbilical hernia, ventral hernia - Integumentary Integumentary: Present: normal, pale, rash. Absent: calor, cellulitis, cyanotic , decreased turgor, flushed, jaundiced, normal turgor, ulcer - Neurologic Neurologic: Present: CNII-XII intact - Musculoskeletal Musculoskeletal: Present: generalized weakness, strength equal bilaterally. Absent: gait normal, right sided weakness, left sided weakness - Psychiatric Psychiatric: A&O x's 2, appropriate affect, intact judgment & insight - Labs CBC & Chem 7: 09/27/17 08:00 09/28/17 10:42 Labs: Abnormal Lab Results - Last 24 Hours (Table) 09/27/17 09/27/17 09/27/17 Range/Units 12:03 16:47 20:36 POC Glucose (mg/dL) 255 H 244 H 355 H (75-99) mg/dL 09/28/17 Range/Units 07:17 POC Glucose (mg/dL) 268 H (75-99) mg/dL Assessment and Plan Plan: 1. Acute hypoxic respiratory failure secondary to bilateral pleural effusions with bibasilar atelectasis due to acute on chronic diastolic heart failure. Pulmonary medicine has ruled out pneumonia. 2. Hypoxia encephalopathy most likely secondary to low pulse ox. Patient's mentation improved with oxygen therapy. Continue as in #1., Has improved from the last 48 hours. 3. Pneumonia ruled out by pulmonary medicine. 4. Acute kidney injury with CKD stage III with recent acute failure secondary to ATN secondary to sepsis. Patient started on IV fluids 0.9 normal saline at 75 mL per hour. Consult with Dr. Mcbride is appreciated. Continue sodium bicarb 650 mg twice daily. Patient have dialysis catheter placed by Dr. Cabello. 5. Arrhythmia history with prior Nonsustained ventricular tachycardia on 2015 H and was seen by cardiology echocardiogramJuly 2016 showed atrial fibrillation with small pericardial effusion noted ejection fraction 45-50% inferolateral hypokinesis with palpation of LA size over 40. 6. Grullon catheter associated MRSA urinary tract infection and bacteremia with sepsis Dr. Louis recommends daptomycin. Course will be completed on October 02. 7. CAD post CABG. continue aspirin 81 mg orally once every day, Lipitor 40 mg daily, Lopressor. 8. Diabetes mellitus type II with hyperglycemia secondary to steroids: Levemir has been added. Continue with NovoLog sliding scale. Patient has been off scheduled insulin due to hypoglycemia. 9. Hypertensive cardiovascular disease. Continue amlodipine 5 mg twice daily, hydralazine 100 mg 3 times daily, lisinopril 5 mg daily, lopressor 12.5 mg twice daily. 10. Hyperlipidemia: Continue statin. 11. Chronic A. fib. Patient is no longer on Coumadin. This may be related to risk of falls. 12. Recurrent depression: Continue Paxil. 13. Seizure history: Has been on Keppra 750 g twice a day with no new seizure activity. 14. Urinary retention with BPH: Patient has chronic Grullon catheter. Continue Flomax. 15. Severe GERD: Will add Protonix 40 mg daily 16. Severe protein calorie malnutrition due to lack of oral intake. Protein supplement. 17. Chronic low back pain. No change. Patient is off [place] Discharge plan: [facility] Impression and plan of care have been directed as dictated by the signing physician. Carly Greene nurse practitioner acting as scribe for signing physician.
[2017-09-28] MEDS: ACETAMINOPHEN TAB 500 MG TAB PO PRN (14:33)
--- NOTE | 2017-09-28 17:52 | PN ---
PROGRESS NOTE Patient is seen for followup for acute kidney injury, ATN, nonoliguric. Patient's renal function had deteriorated over the last few days and family was approached regarding renal replacement therapy. Initially they were undecided; however, at this time his son has decided to proceed with dialysis. Patient was restarted on IV fluids 2 days ago and his serum creatinine decreased slightly from 4.9 to 4.7, and it is 4.4 today. However, he continues to have significant edema with significant scrotal edema and third spacing. BUN remains elevated above 100. Vascular surgery consult has been placed. Patient will have a dialysis catheter placed today and we will plan for his first treatment tomorrow. On examination today, patient is sleepy but arousable. He is not in any acute distress. Blood pressure is 150/71, heart rate of 82 per minute. Patient is afebrile. EXAMINATION OF THE HEART: S1, S2. EXAMINATION OF LUNGS: Bilateral breath sounds are heard. ABDOMEN: Soft, non-tender. Examination of lower extremities shows edema 1+ bilaterally with significant scrotal edema noted as well. 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 Labs show sodium 145, potassium 4.5, BUN 104, serum creatinine 4.41, calcium 7.9. ASSESSMENT: 1. Acute kidney injury, acute tubular necrosis, nonoliguric, with significantly elevated BUN. Serum creatinine is slightly better. However, patient has significant edema and he has been lethargic. Therefore we will proceed with renal replacement therapy. Vascular Surgery has been consulted. We will have his first hemodialysis planned for tomorrow. I will Hep-Lock the IV fluids for now. 2. Methicillin-resistant Staphylococcus aeruginosa bacteremia from urinary tract infection, maintained on daptomycin. 3. Urinary tract infection with Enterococcus faecalis. 4. Cardiomyopathy with ejection fraction 50% to 55% with mild concentric left ventricular hypertrophy noted. 5. Anemia, maintained on Aranesp, which is mainly anemia of chronic disease. No active bleeding noted. No significant iron deficiency. 6. Chronic atrial fibrillation, currently off of anticoagulation. 7. Hypertension, maintained on amlodipine, hydralazine, Lopressor. STACEY inhibitors were discontinued. 8. History of coronary artery disease, status post coronary artery bypass surgery. 9. Urine retention with benign prostatic hypertrophy, currently with indwelling Grullon catheter and maintained on Flomax. PLAN: Proceed with vascular surgery consult and we will plan for first treatment of hemodialysis tomorrow. I will discontinue the IV fluids for now. MMODL / IJN: [id number] /
[2017-09-28 17:55] LABS: Glucose,Whole Blood 365 mg/dL (75-99)
[2017-09-28 19:17] LABS: Glucose,Whole Blood 320 mg/dL (75-99)
[2017-09-28 21:29] LABS: Glucose,Whole Blood 336 mg/dL (75-99)
[2017-09-28] MEDS: MULTIVITAMINS, THERA 1 EACH TAB PO SCH (21:29)
[2017-09-28] MEDS: MONTELUKAST 10 MG TAB PO SCH (21:29)
--- NOTE | 2017-09-28 22:13 | PN ---
PROGRESS NOTE DATE OF SERVICE: 09/28/2017. REASON FOR FOLLOW UP: MRSA bacteremia secondary to urinary source. INTERVAL HISTORY: The patient was seen on rounds early this afternoon on the 4th floor. The patient has been afebrile. He was breathing comfortably. Denies having any chest pain, shortness of breath or cough. No vomiting or any diarrhea. EXAMINATION: Blood pressure 158/76, pulse of 71, temperature 98. He was 100% on 2L nasal cannula. General description is an elderly male up in the chair in no distress. Respiratory System: Unlabored breathing. Crackles at the bases. No wheeze. HEART: S1, S2. Regular rate and rhythm. ABDOMEN: Soft, no tenderness. LABS: BUN of 104, creatinine is 4.41. DIAGNOSTIC IMPRESSION AND PLAN: Patient with methicillin-resistant Staphylococcus aureus bacteremia secondary to the urinary source. Follow up blood culture has been negative. Currently on daptomycin 6 mg/kg q.4-8h. creatinine clearance to continue to 10/02/2017 finish 2-week course of therapy from his negative blood culture. Continue supportive care. MMODL / IJN: [id number] /
[2017-09-29] MEDS: HEPARIN SODIUM,PORCINE 5,000 UNIT/ML 1 ML VIAL SQ SCH ×3 (02:39→17:33)
[2017-09-29 05:20] LABS: Anisocytosis Slight; HCT 27.1 % (39.0-53.0); HGB 8.5 gm/dL (13.0-17.5); Hypochromasia Slight; MCH 28.2 pg (25.0-35.0); MCHC 31.2 g/dL (31.0-37.0); MCV 90.4 fL (80.0-100.0); Mean Platelet Volume 8.5; Platelet Count 175 k/uL (150-450); RDW 16.4 % (11.5-15.5); WBC 12.3 k/uL (3.8-10.6)
[2017-09-29 05:36] LABS: Calcium 8.3 mg/dL (8.4-10.2); Magnesium 1.9 mg/dL (1.6-2.3); Phosphorus 4.7 mg/dL (2.5-4.5); Potassium 4.8 mmol/L (3.5-5.1)
[2017-09-29] MEDS: FORMOTEROL FUMARATE 20 MCG/2 ML NEBU INHALATION SCH ×2 (07:24→20:05)
[2017-09-29] MEDS: BUDESONIDE 1 MG/2 ML NEBU INHALATION SCH ×2 (07:24→20:05)
[2017-09-29] MEDS: IPRATROPIUM-ALBUTEROL 3 ML NEB INHALATION SCH ×4 (07:24→20:06)
--- NOTE | 2017-09-29 08:32 | XR ---
EXAMINATION TYPE: XR chest 1V portable DATE OF EXAM: 09/29/2017 COMPARISON: 09/26/2017 INDICATION: Shortness of breath TECHNIQUE: Single frontal view of the chest is obtained. FINDINGS: The heart size is enlarged. The pulmonary vasculature is prominent. Diffuse mild increased lung markings are present. There is a small right pleural effusion. Sternotomy wires are present from prior CABG. IMPRESSION: 1. Clinical correlation recommended for congestive heart failure. Exam appears stable from comparison .
[2017-09-29] MEDS ORDERED: NYSTAT-TRIAMCIN 100,000-0.1 UNIT/GM-% CREAM 30 GM TUBE TOPICAL SCH (09:00)
[2017-09-29 09:59] LABS: Glucose,Whole Blood 255 mg/dL (75-99)
[2017-09-29] MEDS: INSULIN DETEMIR 100 UNIT/ML 10 ML VIAL SQ SCH (10:22)
[2017-09-29] MEDS: INSULIN ASPART 100 UNIT/ML 1 ML 10 ML VIAL SQ SCH ×4 (10:30→21:34)
[2017-09-29] MEDS: hydrALAZINE HCL 25 MG TAB PO SCH ×3 (10:31→17:33)
[2017-09-29] MEDS: TAMSULOSIN 0.4 MG CAP.ER.24H PO SCH ×2 (10:32→21:40)
[2017-09-29] MEDS: PARoxetine 10 MG TAB PO SCH (10:32)
[2017-09-29] MEDS: METOPROLOL TARTRATE 12.5 MG TAB PO SCH ×2 (10:32→21:41)
[2017-09-29] MEDS: ISOSORBIDE MONONITRATE ER 30 MG TAB.ER.24H PO SCH (10:32)
--- NOTE | 2017-09-29 10:32 | CONS ---
CONSULTATION This is a 71-year-old gentleman. I was consulted for placement of urgent dialysis catheter. The patient has history of: 1. Acute hypoxic respiratory failure. 2. Pulmonary edema. 3. Acute kidney injury with stage III disease. 4. Bilateral hydronephrosis. 5. Coronary artery disease, post CABG. PHYSICAL EXAMINATION: On examination, patient was seen in the intensive care unit. The patient is lying comfortably. Neck is supple. No bruit appreciated. CHEST: A few rhonchi at lung bases. ABDOMEN: Soft, nontender. Femoral pulses are palpable bilateral. PLAN: Placement of a dialysis catheter. MMODL / IJN: [id number] /
[2017-09-29] MEDS: PANTOPRAZOLE 40 MG TABLET PO SCH (10:33)
[2017-09-29] MEDS: CLOTRIMAZOLE/BETAMETH 1-0.05% CREAM 45 GM TUBE TOPICAL SCH ×2 (10:33→21:41)
[2017-09-29] MEDS: SODIUM BICARBONATE TAB 650 MG TAB PO SCH ×2 (10:33→21:40)
[2017-09-29] MEDS: predniSONE 20 MG TAB PO SCH (10:33)
--- NOTE | 2017-09-29 10:59 | PCN ---
PROCEDURE NOTE PREOPERATIVE DIAGNOSIS: Acute on chronic renal failure. PROCEDURE: Placement of the dialysis catheter right femoral approach. The right groin was prepped and draped in a sterile manner; 1% lidocaine plain infiltrated. Micropuncture introduced in the right common femoral vein. Guidewire was passed and 4 Japanese dilator advanced off the guidewire. Then we passed a a regular guidewire without any resistance. The dilator was advanced and dialysis catheter placed on the top of the guidewire. Guide was removed. The catheter was flushed with heparin, saline and hep-locked and secured with 3-0 nylon. Patient tolerated the procedure well. MMODL / IJN: [id number] /
--- NOTE | 2017-09-29 11:17 | PN ---
PROGRESS NOTE Boom Hdez is a gentleman with history of CAD prior bypass surgery, renal failure, who was on the floor and he developed acute kidney injury with a creatinine going up, was advised to have a dialysis catheter that was placed by Dr. Cabello from the right femoral approach uneventfully. Post procedure he was brought here. He is comfortable, resting. Denies any chest pain. Shortness of breath is evident. S1-S2 heard normally, irregular rate and rhythm noted. Patient has chronic A. fib, short systolic murmur noted/ lungs reveal improved air entry with fine basal rales bilaterally. Abdomen and lower extremities exam unchanged. Right femoral cath site is clean and dry and dialysis catheter is in place. From a cardiac standpoint. I would reduce the dose of Lopressor with parameters and he can have his dialysis. There is no contraindication. MMODL / IJN: [id number] /
--- NOTE | 2017-09-29 11:18 | P.PN ---
Subjective Patient is seen in follow-up for acute kidney injury. Creatinine is down to 4.1 but BUN remains elevated at 106. He had a femoral catheter placed yesterday. Patient's currently sitting up in bed having breakfast. Denies chest pain. Urine output has been about 15-20 mL an hour. He's been treated for MRSA active anemia and UTI. Vital signs are stable. General: The patient appeared well nourished and normally developed. HEENT: Head exam is unremarkable. Neck is without jugular venous distension. LUNGS: Scattered rhonchi. Breath sounds decreased. HEART: Rate and Rhythm are regular. First and second heart sounds normal. No murmurs, rubs or gallops. ABDOMEN: Abdominal exam reveals normal bowel sounds. Non-tender and non- distended. No evidence of peritonitis. EXTREMITITES: 1+ edema. Objective - Vital Signs Vital signs: Vital Signs Temp 98.1 F 09/29/17 04:00 Pulse 61 09/29/17 07:51 Resp 18 09/29/17 06:30 BP 172/80 09/29/17 06:30 Pulse Ox 100 09/29/17 06:30 Intake & Output 09/28/17 09/29/17 09/29/17 18:59 06:59 18:59 Intake Total 120 240 Output Total 752 430 Balance -632 -190 Weight 72.5 kg 82.2 kg Intake: IV 240 0.9 240 Oral 120 Output: Urine 750 430 Uretheral (Grullon) 200 Stool 2 Other: Voiding Method Indwelling Catheter Indwelling Catheter # Voids 1 1 # Bowel Movements 0 - Labs CBC & Chem 7: 09/29/17 05:06 09/29/17 05:06 Labs: Abnormal Lab Results - Last 24 Hours (Table) 09/28/17 09/28/17 09/28/17 Range/Units 10:42 11:34 17:53 WBC (3.8-10.6) k/uL RBC (4.30-5.90) m/uL Hgb (13.0-17.5) gm/dL Hct (39.0-53.0) % RDW (11.5-15.5) % BUN 104 H* (9-20) mg/dL Creatinine 4.41 H (0.66-1.25) mg/dL Glucose 249 H (74-99) mg/dL POC Glucose (mg/dL) 301 H 365 H (75-99) mg/dL Calcium 7.9 L (8.4-10.2) mg/dL Phosphorus (2.5-4.5) mg/dL 09/28/17 09/28/17 09/29/17 Range/Units 19:15 21:28 05:06 WBC 12.3 H (3.8-10.6) k/uL RBC 3.00 L (4.30-5.90) m/uL Hgb 8.5 L (13.0-17.5) gm/dL Hct 27.1 L (39.0-53.0) % RDW 16.4 H (11.5-15.5) % BUN (9-20) mg/dL Creatinine (0.66-1.25) mg/dL Glucose (74-99) mg/dL POC Glucose (mg/dL) 320 H 336 H (75-99) mg/dL Calcium (8.4-10.2) mg/dL Phosphorus (2.5-4.5) mg/dL 09/29/17 09/29/17 Range/Units 05:06 09:56 WBC (3.8-10.6) k/uL RBC (4.30-5.90) m/uL Hgb (13.0-17.5) gm/dL Hct (39.0-53.0) % RDW (11.5-15.5) % BUN 106 H* (9-20) mg/dL Creatinine 4.10 H (0.66-1.25) mg/dL Glucose 291 H (74-99) mg/dL POC Glucose (mg/dL) 255 H (75-99) mg/dL Calcium 8.3 L (8.4-10.2) mg/dL Phosphorus 4.7 H (2.5-4.5) mg/dL Assessment and Plan Plan: Assessment: 1. Acute kidney injury secondary to ATN secondary to bacteremia/UTI and diuresis. No evidence of hydronephrosis noted on renal ultrasound. Serologies from last month were all negative. Creatinine 4.1 today. BUN remains elevated at 106. 2. MRSA bacteremia. 3. UTI with urine culture positive for MRSA and enterococcus. 4. Anemia, iron replete. Maintained on Aranesp. 5. Rule out chronic kidney disease. Creatinine in April 2016 was 1.2. Prior to that he was noted to be 0.9 in November 2015. 6. Benign hypertension. Controlled. 7. Insulin-dependent diabetes mellitus. 8. Volume overload. 9. Urinary retention with Grullon catheter in place. 10. Chronic atrial fibrillation. Rate controlled. Maintained on Lopressor. Plan: Hemodialysis today with goal 2 liters ultrafiltration as able to tolerate. Continue to monitor renal function and urine output. Will continue to assess on day-to-day basis for further need for renal replacement therapy.
[2017-09-29 12:39] LABS: Glucose,Whole Blood 291 mg/dL (75-99)
[2017-09-29] MEDS: TRIAMCINOLONE 0.1% CREAM 80 GM TUBE TOPICAL SCH (12:49)
[2017-09-29] MEDS: NYSTATIN 100,000UNIT/GM CREAM 30 GM TUBE TOPICAL SCH (12:49)
[2017-09-29] MEDS: SODIUM CHLORIDE 0.9% 1,000 ML IV SCH (12:57)
[2017-09-29 17:31] LABS: Glucose,Whole Blood 178 mg/dL (75-99)
[2017-09-29 20:24] LABS: Glucose,Whole Blood 113 mg/dL (75-99)
[2017-09-29] MEDS: MULTIVITAMINS, THERA 1 EACH TAB PO SCH (21:40)
[2017-09-29] MEDS: MONTELUKAST 10 MG TAB PO SCH (21:40)
--- NOTE | 2017-09-29 22:41 | PN ---
PROGRESS NOTE DATE OF SERVICE: 09/29/2017 REASON FOR FOLLOWUP: MRSA bacteremia secondary to a urinary source. INTERVAL HISTORY: The patient is afebrile. The patient did get a right femoral Tyler catheter for dialysis. Patient denies having any chest pain, shortness of breath or cough. No abdominal pain or any diarrhea. PHYSICAL EXAMINATION: Blood pressure is 160/74, pulse of 61, temperature of 98. He is 97% on 4 L nasal cannula. General description is an elderly male up in the bed in no distress. RESPIRATORY SYSTEM: Unlabored breathing with decreased breath sounds in the bases. No wheeze. HEART: S1, S2. Regular rate and rhythm. ABDOMEN: Soft. No tenderness. EXTREMITIES: No edema of feet. LABS: Hemoglobin 8.5, white count 12.3 with a BUN of 106, creatinine 4.10. DIAGNOSTIC IMPRESSION AND PLAN: Patient with a methicillin-resistant Staphylococcus aeruginosa bacteremia secondary to urinary source. Follow-up blood culture has been negative so far. Currently on daptomycin. That will continue until 10/02/2017 to finish a 2-week course of therapy from his negative blood culture. Continue with supportive care. MMODL / IJN: [id number] /
[2017-09-30] MEDS: HEPARIN SODIUM,PORCINE 5,000 UNIT/ML 1 ML VIAL SQ SCH ×3 (00:05→17:50)
[2017-09-30 01:19] LABS: Hepatitis B Surface AB- Quant 3.5 mIU/mL
[2017-09-30 07:30] LABS: Glucose,Whole Blood 159 mg/dL (75-99)
[2017-09-30 07:39] LABS: Anisocytosis Slight; HCT 27.4 % (39.0-53.0); HGB 8.7 gm/dL (13.0-17.5); Hypochromasia Slight; MCH 28.1 pg (25.0-35.0); MCHC 31.7 g/dL (31.0-37.0); MCV 88.7 fL (80.0-100.0); Mean Platelet Volume 8.5; Platelet Count 171 k/uL (150-450); RBC 3.09 m/uL (4.30-5.90); RDW 16.8 % (11.5-15.5); WBC 12.5 k/uL (3.8-10.6)
[2017-09-30] MEDS: IPRATROPIUM-ALBUTEROL 3 ML NEB INHALATION SCH ×4 (07:50→19:11)
[2017-09-30] MEDS: FORMOTEROL FUMARATE 20 MCG/2 ML NEBU INHALATION SCH ×2 (07:50→19:11)
[2017-09-30] MEDS: BUDESONIDE 1 MG/2 ML NEBU INHALATION SCH ×2 (07:50→19:11)
[2017-09-30 07:53] LABS: Calcium 8.2 mg/dL (8.4-10.2); Magnesium 1.8 mg/dL (1.6-2.3); Potassium 4.5 mmol/L (3.5-5.1)
[2017-09-30] MEDS: INSULIN ASPART 100 UNIT/ML 1 ML 10 ML VIAL SQ SCH ×4 (07:56→20:28)
[2017-09-30] MEDS: hydrALAZINE HCL 25 MG TAB PO SCH ×3 (07:57→17:50)
[2017-09-30] MEDS: SODIUM BICARBONATE TAB 650 MG TAB PO SCH ×2 (07:57→20:29)
[2017-09-30] MEDS: METOPROLOL TARTRATE 12.5 MG TAB PO SCH ×2 (07:57→20:29)
[2017-09-30] MEDS: ISOSORBIDE MONONITRATE ER 30 MG TAB.ER.24H PO SCH (07:57)
[2017-09-30] MEDS: PANTOPRAZOLE 40 MG TABLET PO SCH (07:57)
[2017-09-30] MEDS: predniSONE 20 MG TAB PO SCH (07:58)
[2017-09-30] MEDS: TAMSULOSIN 0.4 MG CAP.ER.24H PO SCH ×2 (07:58→20:29)
[2017-09-30] MEDS: PARoxetine 10 MG TAB PO SCH (07:58)
[2017-09-30] MEDS: DARBEPOETIN ALFA 40 MCG/0.4 ML SYRINGE SQ SCH (07:59)
[2017-09-30] MEDS: TRIAMCINOLONE 0.1% CREAM 80 GM TUBE TOPICAL SCH (08:05)
[2017-09-30] MEDS: CLOTRIMAZOLE/BETAMETH 1-0.05% CREAM 45 GM TUBE TOPICAL SCH ×2 (08:05→20:30)
[2017-09-30] MEDS: NYSTATIN 100,000UNIT/GM CREAM 30 GM TUBE TOPICAL SCH (08:05)
[2017-09-30] MEDS: INSULIN DETEMIR 100 UNIT/ML 10 ML VIAL SQ SCH (09:22)
[2017-09-30 11:17] LABS: Glucose,Whole Blood 235 mg/dL (75-99)
[2017-09-30] MEDS: SODIUM CHLORIDE 0.9% 1,000 ML IV SCH (11:20)
--- NOTE | 2017-09-30 14:47 | P.PN ---
Subjective Progress Note Date: 09/29/17 This is a 71-year-old male one of Dr. Lucas Gallo's patient with past medical history of hypertension, hyperlipidemia, diabetes, COPD, chronic systolic and possible diastolic heart failure, alcoholism, coronary artery disease and underwent CABG 2015 ended up having multiple complications and the multiple rehospitalization for worsening shortness of breath, A. fib and other complication. He has had several admissions over the past 2 months for recurrent metabolic encephalopathy with sepsis of possible aspiration pneumonia and urinary tract infection. He has been followed by Dr. Nicholas, Dr. Louis. Thought changes were possibly related to narcotic use. On recent admission in July patient did require intubation. He is currently residing at [facility] on the care of Dr. Blackman and most recent discharge was on September 05. Patient was brought in by EMS on September 14 to the emergency center due to mental status changes. Patient was treated with increased Lasix and return to the half-way for CHF exacerbation. His vital signs were stable at that time , BUN 36 creatinine 2.08, normal white count. Troponin was negative. Patient return to [facility] emergency center on September 15 due to pulse ox of 80s, generalized weakness and decreased level of consciousness. Patient barely was placed on oxygen by EMS and became much more alert. Temperature max is 100.2, vital signs were otherwise stable. Initial pulse ox was 89%. EKG was atrial fibrillation controlled rate with T-wave inversion in the inferior leads. Patient was admitted to the selective care unit and consult placed with cardiology and pulmonary medicine. Patient's mentation appears to be back to his baseline. He is more alert and interactive today is feeling little bit better slightly decreased shortness of breath compared to before. Patient be seen cardiology still on diuretics whether can benefit from any further testing cardiac-hardwick are not is to be determined. Also patient has passed his swallow eval despite having aspiration pneumonia being treated for. 09/18/2017: Patient is doing much better is drinking his coffee this had his breakfast earlier. His microbiology came back positive for MRSA and enterococcus, patient is seen infectious disease was switched from vancomycin to daptomycin. 09/19: Patient is clinically doing much better surprisingly his chest x-ray came back more positive for low below pneumonia with multi-patchy area in the chest, still treated for UTI and aspiration pneumonia with the same antibiotics. Patient is interacting more and his acute mental status change reverse almost back to its baseline. 09/20: Patient has been followed by phone or medicine and cardiology. Cardiology has signed off and following as needed only. Dr. Louis is following for MRSA bacteremia likely urinary tract infection is the source. Grullon catheter has been exchanged. Plan is for patient to be on daptomycin for 2 weeks. Midline is to be placed today. Patient has been afebrile. Pulse ox 95 % on 6 L nasal cannula. Today, BUN 46, creatinine 2.94 potassium 5.4. Hemoglobin is stable at 8.9. Other electrolytes within normal limits and liver function tests within normal limits. Patient was started on Solu-Medrol 60 mg every 6 hours bipolar medicine yesterday. Blood sugars are running in the 200s.Solu-Medrol will be decreased to 40 mg every 8 hours. We'll plan for discharge tomorrow. 09/21: Pulse ox is 97% on 3 L nasal cannula. Renal function is worsening with BUN 61 and creatinine 3.65, hemoglobin 8.2. Plan is for renal function to be monitored at the half-way. Patient denies any difficulty breathing. Patient is drowsy but answers questions appropriately and denies any new complaints. He denies any abdominal pain. No nausea or vomiting. Grullon catheter remains in place. Plan was for patient to be discharged to [facility] but insurance authorization was still pending. 09/22: Insurance authorization has been obtained but discharge is being held as patient's renal function has continued to climb and he is at a BUN of 75 and creatinine 3.99. Consult added for Dr. Mcbride. Lasix has been discontinued and patient started on IV fluids 0.9 normal saline at 75 mL per hour. Solu- Medrol will be decreased to 40 mg every 12 hours. Blood sugars have been running high for which Levemir 10 units daily added. Patient states that he is not feeling good today. He is not eating or drinking very much. He does have Glucerna. He states he has no appetite. 09/23: Patient sitting up in bed is feeling better today he denies any chest pain , is less short of breath, he continues to have Grullon catheter in place, we will postpone his discharge until Tuesday due to his acute kidney injury. 09/24: Total: Patient wanted to get up from bed, however he is recently , otherwise is comfortable, patient pulled out th midline last night, this would be reinserted for new midline and ordered for Tuesday, completed IV antibiotics daptomycin for MRSA bacteremia until October 02 by infectious disease, creatinine remains to be elevated at 4.7, and admitting creatinine of 2.5. With catheter draining clear, Grullon catheter remaining clear urine nephrology following., 09/25: Patient is comfortable today, however creatinine reached be high at 4.5 bun at 99. hyperkalemia 5.5 kayexelate 15 mg x 1 dose weekly Solu-Medrol and discontinue IV, oral prednisone 40the morning, midline IV access anticipated to be performed in the morning 09/26 creatinine remains higher with worsening of BUN, nephrology discussed hemodialysis, patient cannot make his own well-informed medical decision, KAIA is the youngest son, and I've spoken to him to make the final decision to assist with the father, and family members as well. The patient himself when inquired, does not want to be on dialysis, he wants his youngest son to assist, he would await family decision with KAIA next of kin [place] for final recommendation 09/27: Family undecided yet regarding renal replacement therapy, patient cannot fully understand the consequences and the indication for renal replacement therapy, patient states that if he could avoid it he would not go for dialysis however he also wants things that are for him.daughter at bedside, Chintan, updated regards to outcome,patient still remains severely azotemiaBUN of 105 creatinine 4.75 potassium 4.8 09/28: Patient and son wish to pursue hemodialysis. Dr. Cabello consult and patient will be transferred to ICU to do catheter placement and start dialysis. Dr. Tang to be updated. BUN is 104 and creatinine 4.41. Blood sugars are running in the 200s and 300s. Levemir dose increased. 09/29: Patient had dialysis catheter placement on the right from oral with Dr. Cabello and patient was transferred into the intensive care unit. He has been hemodynamically stable. Dr. Mcbride has ordered hemodialysis today and will be determined on a day-to-day basis. BUN is 106 and creatinine 4.1. Blood sugars remain elevated secondary to steroids. He is currently on prednisone 40 mg daily. Lantus was increased to 12 units yesterday. Cardiology has reduced the dose of Lopressor with parameters with dialysis. Patient will be transferred to the [facility] floor later today. Patient's mental status is alert and oriented today. Patient has been asking for items that on his diet and stating that he only has 6 months to live to his nurse. Objective - Vital Signs Vital signs: Vital Signs Temp 98.1 F 09/29/17 04:00 Pulse 66 09/29/17 11:33 Resp 18 09/29/17 06:30 BP 172/80 09/29/17 06:30 Pulse Ox 100 09/29/17 06:30 Intake & Output 09/28/17 09/29/17 09/29/17 18:59 06:59 18:59 Intake Total 120 240 Output Total 752 430 Balance -632 -190 Weight 72.5 kg 82.2 kg Intake: IV 240 0.9 240 Oral 120 Output: Urine 750 430 Uretheral (Grullon) 200 Stool 2 Other: Voiding Method Indwelling Catheter Indwelling Catheter # Voids 1 1 # Bowel Movements 0 - Exam General appearance: Present: cooperative, disheveled, no acute distress. Absent : average body habitus, mild distress, morbidly obese, obese, severe distress, thin - EENT Eyes: Present: normal appearance. Absent: abnormal pupil, anicteric sclerae, disc margins sharp, edentulous, EOMI, PERRLA, fundus normal, photophobia, dentition normal, poor dentition, ptosis, scleral icterus ENT: Present: hard of hearing, pharyngeal erythema. Absent: hearing grossly normal, NA/AT, normal oropharynx, other, thrush, tonsillar exudates, tonsillar swelling Ears: bilateral: normal - Neck Neck: Present: normal ROM. Absent: lymphadenopathy, other, rigidity, stridor, thyromegaly Carotids: bilateral: upstroke normal, upstroke delayed Thyroid: bilateral: normal size - Respiratory Respiratory: bilateral: CTA, diminished, dullness, rales, rhonchi - Cardiovascular Rhythm: regular Heart sounds: normal: S1, S2 Abnormal Heart Sounds: Present: systolic murmur, S3 Gallop - Gastrointestinal General gastrointestinal: Present: decreased bowel sounds, distended, normal bowel sounds, soft. Absent: absent bowel sounds, hepatomegaly, hyperactive bowel sounds, organomegaly, rigid, scaphoid, splenomegaly, tenderness, umbilical hernia, ventral hernia - Integumentary Integumentary: Present: normal, pale, rash. Absent: calor, cellulitis, cyanotic , decreased turgor, flushed, jaundiced, normal turgor, ulcer - Neurologic Neurologic: Present: CNII-XII intact - Musculoskeletal Musculoskeletal: Present: generalized weakness, strength equal bilaterally. Absent: gait normal, right sided weakness, left sided weakness - Psychiatric Psychiatric: A&O x's 3, appropriate affect, intact judgment & insight - Labs CBC & Chem 7: 09/30/17 07:22 09/30/17 07:22 Labs: Abnormal Lab Results - Last 24 Hours (Table) 09/28/17 09/28/17 09/28/17 Range/Units 17:53 19:15 21:28 WBC (3.8-10.6) k/uL RBC (4.30-5.90) m/uL Hgb (13.0-17.5) gm/dL Hct (39.0-53.0) % RDW (11.5-15.5) % BUN (9-20) mg/dL Creatinine (0.66-1.25) mg/dL Glucose (74-99) mg/dL POC Glucose (mg/dL) 365 H 320 H 336 H (75-99) mg/dL Calcium (8.4-10.2) mg/dL Phosphorus (2.5-4.5) mg/dL 09/29/17 09/29/17 09/29/17 Range/Units 05:06 05:06 09:56 WBC 12.3 H (3.8-10.6) k/uL RBC 3.00 L (4.30-5.90) m/uL Hgb 8.5 L (13.0-17.5) gm/dL Hct 27.1 L (39.0-53.0) % RDW 16.4 H (11.5-15.5) % BUN 106 H* (9-20) mg/dL Creatinine 4.10 H (0.66-1.25) mg/dL Glucose 291 H (74-99) mg/dL POC Glucose (mg/dL) 255 H (75-99) mg/dL Calcium 8.3 L (8.4-10.2) mg/dL Phosphorus 4.7 H (2.5-4.5) mg/dL Assessment and Plan Plan: 1. Acute hypoxic respiratory failure secondary to bilateral pleural effusions with bibasilar atelectasis due to acute on chronic diastolic heart failure. Pulmonary medicine has ruled out pneumonia. 2. Hypoxia encephalopathy most likely secondary to low pulse ox. Patient's mentation improved with oxygen therapy. Continue as in #1., Has improved from the last 48 hours. 3. Pneumonia ruled out by pulmonary medicine. 4. Acute kidney injury with CKD stage III with recent acute failure secondary to ATN secondary to sepsis. Consult with Dr. Mcbride is appreciated. Continue sodium bicarb 650 mg twice daily. Dialysis catheter placed by Dr. Cabello. Patient started dialysis treatment. 5. Arrhythmia history with prior Nonsustained ventricular tachycardia on 2015 H and was seen by cardiology echocardiogramJuly 2015 showed atrial fibrillation with small pericardial effusion noted ejection fraction 45-50% inferolateral hypokinesis with palpation of LA size over 40. 6. Grullon catheter associated MRSA urinary tract infection and bacteremia with sepsis Dr. Louis recommends daptomycin. Course will be completed on October 02. 7. CAD post CABG. continue aspirin 81 mg orally once every day, Lipitor 40 mg daily, Lopressor. 8. Diabetes mellitus type II with hyperglycemia secondary to steroids: Levemir has been added. Continue with NovoLog sliding scale. Patient has been off scheduled insulin due to hypoglycemia. 9. Hypertensive cardiovascular disease. Continue amlodipine 5 mg twice daily, hydralazine 100 mg 3 times daily, lisinopril 5 mg daily, lopressor 12.5 mg twice daily. 10. Hyperlipidemia: Continue statin. 11. Chronic A. fib. Patient is no longer on Coumadin. This may be related to risk of falls. 12. Recurrent depression: Continue Paxil. 13. Seizure history: Has been on Keppra 750 g twice a day with no new seizure activity. 14. Urinary retention with BPH: Patient has chronic Grullon catheter. Continue Flomax. 15. Severe GERD: Will add Protonix 40 mg daily 16. Severe protein calorie malnutrition due to lack of oral intake. Protein supplement. 17. Chronic low back pain. No change. Patient is off [place] Discharge plan: [facility] [place] on Tuesday Impression and plan of care have been directed as dictated by the signing physician. Carly Greene nurse practitioner acting as scribe for signing physician.
--- NOTE | 2017-09-30 14:49 | P.PN ---
Subjective Progress Note Date: 09/30/17 This is a 71-year-old male one of Dr. Lucas Gallo's patient with past medical history of hypertension, hyperlipidemia, diabetes, COPD, chronic systolic and possible diastolic heart failure, alcoholism, coronary artery disease and underwent CABG 2015 ended up having multiple complications and the multiple rehospitalization for worsening shortness of breath, A. fib and other complication. He has had several admissions over the past 2 months for recurrent metabolic encephalopathy with sepsis of possible aspiration pneumonia and urinary tract infection. He has been followed by Dr. Nicholas, Dr. Louis. Thought changes were possibly related to narcotic use. On recent admission in July patient did require intubation. He is currently residing at [facility] on the care of Dr. Blackman and most recent discharge was on September 05. Patient was brought in by EMS on September 14 to the emergency center due to mental status changes. Patient was treated with increased Lasix and return to the [facility] for CHF exacerbation. His vital signs were stable at that time , BUN 36 creatinine 2.08, normal white count. Troponin was negative. Patient return to [facility] emergency center on September 15 due to pulse ox of 80s, generalized weakness and decreased level of consciousness. Patient barely was placed on oxygen by EMS and became much more alert. Temperature max is 100.2, vital signs were otherwise stable. Initial pulse ox was 89%. EKG was atrial fibrillation controlled rate with T-wave inversion in the inferior leads. Patient was admitted to the selective care unit and consult placed with cardiology and pulmonary medicine. Patient's mentation appears to be back to his baseline. He is more alert and interactive today is feeling little bit better slightly decreased shortness of breath compared to before. Patient be seen cardiology still on diuretics whether can benefit from any further testing cardiac-hardwick are not is to be determined. Also patient has passed his swallow eval despite having aspiration pneumonia being treated for. 09/18/2017: Patient is doing much better is drinking his coffee this had his breakfast earlier. His microbiology came back positive for MRSA and enterococcus, patient is seen infectious disease was switched from vancomycin to daptomycin. 09/19: Patient is clinically doing much better surprisingly his chest x-ray came back more positive for low below pneumonia with multi-patchy area in the chest, still treated for UTI and aspiration pneumonia with the same antibiotics. Patient is interacting more and his acute mental status change reverse almost back to its baseline. 09/20: Patient has been followed by phone or medicine and cardiology. Cardiology has signed off and following as needed only. Dr. Louis is following for MRSA bacteremia likely urinary tract infection is the source. Grullon catheter has been exchanged. Plan is for patient to be on daptomycin for 2 weeks. Midline is to be placed today. Patient has been afebrile. Pulse ox 95 % on 6 L nasal cannula. Today, BUN 46, creatinine 2.94 potassium 5.4. Hemoglobin is stable at 8.9. Other electrolytes within normal limits and liver function tests within normal limits. Patient was started on Solu-Medrol 60 mg every 6 hours bipolar medicine yesterday. Blood sugars are running in the 200s.Solu-Medrol will be decreased to 40 mg every 8 hours. We'll plan for discharge tomorrow. 09/21: Pulse ox is 97% on 3 L nasal cannula. Renal function is worsening with BUN 61 and creatinine 3.65, hemoglobin 8.2. Plan is for renal function to be monitored at the [facility]. Patient denies any difficulty breathing. Patient is drowsy but answers questions appropriately and denies any new complaints. He denies any abdominal pain. No nausea or vomiting. Grullon catheter remains in place. Plan was for patient to be discharged to [facility] but insurance authorization was still pending. 09/22: Insurance authorization has been obtained but discharge is being held as patient's renal function has continued to climb and he is at a BUN of 75 and creatinine 3.99. Consult added for Dr. Mcbride. Lasix has been discontinued and patient started on IV fluids 0.9 normal saline at 75 mL per hour. Solu- Medrol will be decreased to 40 mg every 12 hours. Blood sugars have been running high for which Levemir 10 units daily added. Patient states that he is not feeling good today. He is not eating or drinking very much. He does have Glucerna. He states he has no appetite. 09/23: Patient sitting up in bed is feeling better today he denies any chest pain , is less short of breath, he continues to have Grullon catheter in place, we will postpone his discharge until Tuesday due to his acute kidney injury. 09/24: Total: Patient wanted to get up from bed, however he is recently , otherwise is comfortable, patient pulled out th midline last night, this would be reinserted for new midline and ordered for Tuesday, completed IV antibiotics daptomycin for MRSA bacteremia until October 02 by infectious disease, creatinine remains to be elevated at 4.7, and admitting creatinine of 2.5. With catheter draining clear, Grullon catheter remaining clear urine nephrology following., 09/25: Patient is comfortable today, however creatinine reached be high at 4.5 bun at 99. hyperkalemia 5.5 kayexelate 15 mg x 1 dose weekly Solu-Medrol and discontinue IV, oral prednisone 40the morning, midline IV access anticipated to be performed in the morning 09/26 creatinine remains higher with worsening of BUN, nephrology discussed hemodialysis, patient cannot make his own well-informed medical decision, KAIA is the youngest son, and I've spoken to him to make the final decision to assist with the father, and family members as well. The patient himself when inquired, does not want to be on dialysis, he wants his youngest son to assist, he would await family decision with KAIA next of kin [place] for final recommendation 09/27: Family undecided yet regarding renal replacement therapy, patient cannot fully understand the consequences and the indication for renal replacement therapy, patient states that if he could avoid it he would not go for dialysis however he also wants things that are for him.daughter at bedside, Chintan, updated regards to outcome,patient still remains severely azotemiaBUN of 105 creatinine 4.75 potassium 4.8 09/28: Patient and son wish to pursue hemodialysis. Dr. Cabello consult and patient will be transferred to ICU to do catheter placement and start dialysis. Dr. Tang to be updated. BUN is 104 and creatinine 4.41. Blood sugars are running in the 200s and 300s. Levemir dose increased. 09/29: Patient had dialysis catheter placement on the right from oral with Dr. Cabello and patient was transferred into the intensive care unit. He has been hemodynamically stable. Dr. Mcbride has ordered hemodialysis today and will be determined on a day-to-day basis. BUN is 106 and creatinine 4.1. Blood sugars remain elevated secondary to steroids. He is currently on prednisone 40 mg daily. Lantus was increased to 12 units yesterday. Cardiology has reduced the dose of Lopressor with parameters with dialysis. Patient will be transferred to the [facility] floor later today. Patient's mental status is alert and oriented today. Patient has been asking for items that on his diet and stating that he only has 6 months to live to his nurse. 09/30: Repeat BUN 79 and creatinine 3.17 after dialysis yesterday. Hemoglobin is 8.7. Awaiting determination from nephrology and patient will be re-dialyzed today and if he will need long-term at the [facility]. At this time, we are anticipate discharge back to [facility] on Tuesday. Objective - Vital Signs Vital signs: Vital Signs Temp 97.0 F L 09/30/17 05:30 Pulse 62 09/30/17 08:15 Resp 16 09/30/17 05:30 BP 155/78 09/30/17 05:30 Pulse Ox 92 L 09/30/17 05:30 Intake & Output 09/29/17 09/30/17 09/30/17 18:59 06:59 18:59 Intake Total 970 280 Output Total 410 180 100 Balance 560 100 -100 Weight 82.2 kg Intake: IV 270 80 0.9 220 80 DAPTOmycin 400 mg In 50 Sodium Chloride 0.9% 50 ml @ 100 mls/hr IVPB Q48H [facility] Rx#:[id number] Oral 700 200 Output: Urine 410 180 100 Other: Voiding Method Indwelling Catheter Indwelling Catheter Indwelling Catheter - Exam General appearance: Present: cooperative, disheveled, no acute distress. Absent : average body habitus, mild distress, morbidly obese, obese, severe distress, thin - EENT Eyes: Present: normal appearance. Absent: abnormal pupil, anicteric sclerae, disc margins sharp, edentulous, EOMI, PERRLA, fundus normal, photophobia, dentition normal, poor dentition, ptosis, scleral icterus ENT: Present: hard of hearing, pharyngeal erythema. Absent: hearing grossly normal, NA/AT, normal oropharynx, other, thrush, tonsillar exudates, tonsillar swelling Ears: bilateral: normal - Neck Neck: Present: normal ROM. Absent: lymphadenopathy, other, rigidity, stridor, thyromegaly Carotids: bilateral: upstroke normal, upstroke delayed Thyroid: bilateral: normal size - Respiratory Respiratory: bilateral: CTA, diminished, dullness, rales, rhonchi - Cardiovascular Rhythm: regular Heart sounds: normal: S1, S2 Abnormal Heart Sounds: Present: systolic murmur, S3 Gallop - Gastrointestinal General gastrointestinal: Present: decreased bowel sounds, distended, normal bowel sounds, soft. Absent: absent bowel sounds, hepatomegaly, hyperactive bowel sounds, organomegaly, rigid, scaphoid, splenomegaly, tenderness, umbilical hernia, ventral hernia - Integumentary Integumentary: Present: normal, pale, rash. Absent: calor, cellulitis, cyanotic , decreased turgor, flushed, jaundiced, normal turgor, ulcer - Neurologic Neurologic: Present: CNII-XII intact - Musculoskeletal Musculoskeletal: Present: generalized weakness, strength equal bilaterally. Absent: gait normal, right sided weakness, left sided weakness - Psychiatric Psychiatric: A&O x's 3, appropriate affect, intact judgment & insight - Labs CBC & Chem 7: 09/30/17 07:22 09/30/17 07:22 Labs: Abnormal Lab Results - Last 24 Hours (Table) 09/29/17 09/29/17 09/29/17 Range/Units 12:25 17:30 20:22 WBC (3.8-10.6) k/uL RBC (4.30-5.90) m/uL Hgb (13.0-17.5) gm/dL Hct (39.0-53.0) % RDW (11.5-15.5) % BUN (9-20) mg/dL Creatinine (0.66-1.25) mg/dL Glucose (74-99) mg/dL POC Glucose (mg/dL) 291 H 178 H 113 H (75-99) mg/dL Calcium (8.4-10.2) mg/dL 09/30/17 09/30/17 09/30/17 Range/Units 07:22 07:22 07:27 WBC 12.5 H (3.8-10.6) k/uL RBC 3.09 L (4.30-5.90) m/uL Hgb 8.7 L (13.0-17.5) gm/dL Hct 27.4 L (39.0-53.0) % RDW 16.8 H (11.5-15.5) % BUN 79 H (9-20) mg/dL Creatinine 3.17 H (0.66-1.25) mg/dL Glucose 152 H (74-99) mg/dL POC Glucose (mg/dL) 159 H (75-99) mg/dL Calcium 8.2 L (8.4-10.2) mg/dL Assessment and Plan Plan: 1. Acute hypoxic respiratory failure secondary to bilateral pleural effusions with bibasilar atelectasis due to acute on chronic diastolic heart failure. Pulmonary medicine has ruled out pneumonia. 2. Hypoxia encephalopathy most likely secondary to low pulse ox. Patient's mentation improved with oxygen therapy. Continue as in #1., Has improved from the last 48 hours. 3. Pneumonia ruled out by pulmonary medicine. 4. Acute kidney injury with CKD stage III with recent acute failure secondary to ATN secondary to sepsis. Consult with Dr. Mcbride is appreciated. Continue sodium bicarb 650 mg twice daily. Dialysis catheter placed by Dr. Cabello. Patient started dialysis treatment. 5. Arrhythmia history with prior Nonsustained ventricular tachycardia on 2015 H and was seen by cardiology echocardiogramJuly 2015 showed atrial fibrillation with small pericardial effusion noted ejection fraction 45-50% inferolateral hypokinesis with palpation of LA size over 40. 6. Grullon catheter associated MRSA urinary tract infection and bacteremia with sepsis Dr. Louis recommends daptomycin. Course will be completed on October 02. 7. CAD post CABG. continue aspirin 81 mg orally once every day, Lipitor 40 mg daily, Lopressor. 8. Diabetes mellitus type II with hyperglycemia secondary to steroids: Levemir has been added. Continue with NovoLog sliding scale. Patient has been off scheduled insulin due to hypoglycemia. 9. Hypertensive cardiovascular disease. Continue amlodipine 5 mg twice daily, hydralazine 100 mg 3 times daily, lisinopril 5 mg daily, lopressor 12.5 mg twice daily. 10. Hyperlipidemia: Continue statin. 11. Chronic A. fib. Patient is no longer on Coumadin. This may be related to risk of falls. 12. Recurrent depression: Continue Paxil. 13. Seizure history: Has been on Keppra 750 g twice a day with no new seizure activity. 14. Urinary retention with BPH: Patient has chronic Grullon catheter. Continue Flomax. 15. Severe GERD: Will add Protonix 40 mg daily 16. Severe protein calorie malnutrition due to lack of oral intake. Protein supplement. 17. Chronic low back pain. No change. Patient is off [place] Discharge plan: [facility] on Tuesday Impression and plan of care have been directed as dictated by the signing physician. Carly Greene nurse practitioner acting as scribe for signing physician.
--- NOTE | 2017-09-30 14:54 | PN ---
PROGRESS NOTE Patient is seen for followup for acute kidney injury. He was dialyzed yesterday. His numbers have improved. Patient is currently sleeping. He is arousable but is not communicating much. On examination, blood pressure was 155/78 this morning, heart rate 62 per minute. Patient is afebrile. EXAMINATION OF THE HEART: S1, S2. EXAMINATION OF LUNGS: Bilateral breath sounds are heard. ABDOMEN: Soft, non-tender. Examination of lower extremities shows no significant edema. CANNONEER exam is grossly intact. Labs show sodium 144, potassium 4.5, chloride 106, BUN 79, serum creatinine 3.17, hemoglobin 8.7 g/dL. ASSESSMENT: 1. Acute kidney injury, acute tubular necrosis, non-oliguric, status post hemodialysis yesterday. Patient has good urine output with about 1.1 L over the last 24 hours. We will repeat another session of hemodialysis today with no significant ultrafiltration. 2. Volume overload, currently improved. 3. Methicillin-resistant Staphylococcus aeruginosa bacteremia from urinary tract infection. 4. Urinary tract infection with urine culture positive for methicillin-resistant Staphylococcus aeruginosa and enterococcus. 5. Chronic kidney disease with previous creatinine about 1.2 in April of 2016. 6. Chronic atrial fibrillation. 7. Urine retention with Grullon catheter in place. PLAN: Hemodialysis today with no ultrafiltration. Will repeat labs in a.m. and we will decide over the weekend if patient will need to continue with renal replacement therapy. MMODL / IJN: [id number] /
--- NOTE | 2017-09-30 16:03 | PN ---
PROGRESS NOTE DATE OF SERVICE: 09/30/2017 REASON FOR FOLLOW UP: MRSA bacteremia secondary to urinary source. INTERVAL HISTORY: The patient is currently afebrile. He is breathing comfortably. Denies significant chest pain, shortness of breath or cough. No abdominal pain and diarrhea reported. EXAMINATION: VITAL SIGNS: Blood pressure 151/60 with a pulse of 72, temperature is 97.9. He is 100% on 4 L nasal cannula. GENERAL DESCRIPTION is an elderly male lying in bed in no distress. RESPIRATORY system: Unlabored breathing. Clear to auscultation anteriorly. HEART S1, S2 regular rate and rhythm. ABDOMEN: Soft, no tenderness. LABS: Hemoglobin 8.7, white count 12.5 with a BUN of 79, creatinine 3.17. DIAGNOSTIC IMPRESSION AND PLAN: Patient with Methicillin-resistant Staphylococcus aureus bacteremia secondary to although all blood cultures have been negative. Clinical course was complicated by development of development of renal failure, has been currently getting dialysis. He is on daptomycin that will continue to attempt to finish a 2 week course with negative blood cultures and will monitor patient closely. Continue supportive care. MMODL / IJN: [id number] /
[2017-09-30 17:30] LABS: Glucose,Whole Blood 168 mg/dL (75-99)
[2017-09-30 20:11] LABS: Glucose,Whole Blood 235 mg/dL (75-99)
[2017-09-30] MEDS: MULTIVITAMINS, THERA 1 EACH TAB PO SCH (20:29)
[2017-09-30] MEDS: MONTELUKAST 10 MG TAB PO SCH (20:29)
[2017-10-01] MEDS: HEPARIN SODIUM,PORCINE 5,000 UNIT/ML 1 ML VIAL SQ SCH ×4 (00:18→22:59)
[2017-10-01 06:48] LABS: Glucose,Whole Blood 206 mg/dL (75-99)
[2017-10-01 07:21] LABS: Anisocytosis Slight; HGB 8.2 gm/dL (13.0-17.5); Hypochromasia Slight; MCH 28.1 pg (25.0-35.0); MCHC 31.4 g/dL (31.0-37.0); MCV 89.5 fL (80.0-100.0); Mean Platelet Volume 7.7; Platelet Count 149 k/uL (150-450); RBC 2.91 m/uL (4.30-5.90); WBC 13.3 k/uL (3.8-10.6)
[2017-10-01] MEDS: IPRATROPIUM-ALBUTEROL 3 ML NEB INHALATION SCH ×4 (07:30→19:55)
[2017-10-01] MEDS: FORMOTEROL FUMARATE 20 MCG/2 ML NEBU INHALATION SCH ×2 (07:30→19:54)
[2017-10-01] MEDS: BUDESONIDE 1 MG/2 ML NEBU INHALATION SCH ×2 (07:30→19:54)
[2017-10-01 07:31] LABS: Calcium 7.9 mg/dL (8.4-10.2); Magnesium 1.7 mg/dL (1.6-2.3); Phosphorus 3.3 mg/dL (2.5-4.5)
[2017-10-01] MEDS: PARoxetine 10 MG TAB PO SCH (07:50)
[2017-10-01] MEDS: predniSONE 20 MG TAB PO SCH (07:50)
[2017-10-01] MEDS: METOPROLOL TARTRATE 12.5 MG TAB PO SCH ×2 (07:50→22:55)
[2017-10-01] MEDS: hydrALAZINE HCL 25 MG TAB PO SCH ×3 (07:50→16:21)
[2017-10-01] MEDS: SODIUM BICARBONATE TAB 650 MG TAB PO SCH ×2 (07:51→22:59)
[2017-10-01] MEDS: INSULIN ASPART 100 UNIT/ML 1 ML 10 ML VIAL SQ SCH ×4 (07:51→22:53)
[2017-10-01] MEDS: PANTOPRAZOLE 40 MG TABLET PO SCH (07:51)
[2017-10-01] MEDS: TAMSULOSIN 0.4 MG CAP.ER.24H PO SCH ×2 (07:51→22:59)
[2017-10-01] MEDS: ISOSORBIDE MONONITRATE ER 30 MG TAB.ER.24H PO SCH (07:51)
[2017-10-01] MEDS: TRIAMCINOLONE 0.1% CREAM 80 GM TUBE TOPICAL SCH (08:05)
[2017-10-01] MEDS: NYSTATIN 100,000UNIT/GM CREAM 30 GM TUBE TOPICAL SCH (08:05)
[2017-10-01] MEDS: CLOTRIMAZOLE/BETAMETH 1-0.05% CREAM 45 GM TUBE TOPICAL SCH ×2 (08:05→22:54)
[2017-10-01] MEDS: INSULIN DETEMIR 100 UNIT/ML 10 ML VIAL SQ SCH (08:07)
[2017-10-01] MEDS: SODIUM CHLORIDE 0.9% 1,000 ML IV SCH (10:43)
--- NOTE | 2017-10-01 11:10 | P.PN ---
Subjective Progress Note Date: 10/01/17 Principal diagnosis: This is a 71-year-old resident of [facility] seen with acute kidney injury on chronic kidney disease. Patient was admitted in July 2017 with sepsis and aspiration pneumonia and at that time his creatinine went up to 3.5 and then gradually improved to 1.8 upon discharge to [facility]. Patient presented this admission on September 15 with low oxygen saturations. He received IV diuretics which were discontinued yesterday. He is currently being treated for MRSA bacteremia and UTI. Urine culture positive for MRSA and enterococcus. He has history of diastolic CHF. His serologic workup from last admission was negative. Ultrasound reveals no evidence of hydronephrosis. Upon admission he was been dialyzed now twice yesterday and day before yesterday. On examination this morning he is awake alert but unable to give a good history his memory is poor. He denies any complaints. He is on room air. He ate a little bit according to nursing staff. He has a Grullon catheter is draining urine his urine output is down. Objective - Vital Signs Vital signs: Vital Signs Temp 97.9 F 10/01/17 05:31 Pulse 74 10/01/17 09:00 Resp 16 10/01/17 09:00 BP 134/72 10/01/17 05:31 Pulse Ox 92 L 10/01/17 07:32 Intake & Output 09/30/17 10/01/17 10/01/17 18:59 06:59 18:59 Output Total 525 300 Balance -525 -300 Weight 82.2 kg Output: Urine 525 300 Other: Voiding Method Indwelling Catheter Indwelling Catheter Indwelling Catheter On examination awake alert. HEENT exam no JVP neck is supple no facial asymmetry Lungs are clear to auscultation with good air entry bilaterally Heart sounds are unremarkable no murmur rub gallop Abdomen is soft nontender Extremity exam was no edema. Warm to touch. Neurologically awake alert but disoriented 3. Resume all his extremities although he is profoundly weak - Labs CBC & Chem 7: 10/01/17 06:51 10/01/17 06:51 Labs: Abnormal Lab Results - Last 24 Hours (Table) 09/30/17 09/30/17 09/30/17 Range/Units 11:15 17:14 20:10 WBC (3.8-10.6) k/uL RBC (4.30-5.90) m/uL Hgb (13.0-17.5) gm/dL Hct (39.0-53.0) % RDW (11.5-15.5) % Plt Count (150-450) k/uL BUN (9-20) mg/dL Creatinine (0.66-1.25) mg/dL Glucose (74-99) mg/dL POC Glucose (mg/dL) 235 H 168 H 235 H (75-99) mg/dL Calcium (8.4-10.2) mg/dL 10/01/17 10/01/17 10/01/17 Range/Units 06:47 06:51 06:51 WBC 13.3 H (3.8-10.6) k/uL RBC 2.91 L (4.30-5.90) m/uL Hgb 8.2 L (13.0-17.5) gm/dL Hct 26.0 L (39.0-53.0) % RDW 17.0 H (11.5-15.5) % Plt Count 149 L (150-450) k/uL BUN 60 H (9-20) mg/dL Creatinine 2.47 H (0.66-1.25) mg/dL Glucose 194 H (74-99) mg/dL POC Glucose (mg/dL) 206 H (75-99) mg/dL Calcium 7.9 L (8.4-10.2) mg/dL Assessment and Plan Assessment: Assessment: 1. Acute kidney injury secondary to ATN secondary to bacteremia/UTI and diuresis. No evidence of hydronephrosis noted on renal ultrasound. Serologies from last month were all negative. On hemodialysis with a Tylre catheter in the right groin. Dialyze on 09/30/2079 09/30/2017. Yesterday's dialysis was uneventful. In output is marginal but labs are stable and there is no evidence of congestive heart failure. 2. MRSA bacteremia. On antibiotics 3. UTI with urine culture positive for MRSA and enterococcus. 4. Anemia, iron replete. Hemoglobin down to 8.2 from 8.7 5. Rule out chronic kidney disease. Creatinine in April 2016 was 1.2. Prior to that he was noted to be 0.9 in November 2015. 6. Benign hypertension. Controlled. Blood pressure at target 130s 7. Insulin-dependent diabetes mellitus. Plan- 1. Will hold off dialysis as his stable with no clinical evidence of volume overload or uremia. His mental status changes likely is the result of the bacteremia. 2. Watch hemoglobin as it can down from 8.7-8.2. 3. Maintain blood pressure around 120s to 130s so his kidney can recover . 4. Ensure adequate nutritional support 5. Monitor labs, next dialysis is based upon whether there is any improvement in his renal function
--- NOTE | 2017-10-01 11:17 | P.PN ---
Subjective Progress Note Date: 10/01/17 Principal diagnosis: Acute kidney injury Patient continued to be confused at baseline mental status, tolerating diet, urine output continued to be at baseline. He to 40 mL/h and his Grullon catheter bag, patient seems to be comfortable in no acute distress and denying pain Objective - Vital Signs Vital signs: Vital Signs Temp 97.9 F 10/01/17 05:31 Pulse 68 10/01/17 11:10 Resp 16 10/01/17 09:00 BP 134/72 10/01/17 05:31 Pulse Ox 92 L 10/01/17 07:32 Intake & Output 09/30/17 10/01/17 10/01/17 18:59 06:59 18:59 Output Total 525 300 Balance -525 -300 Weight 82.2 kg Output: Urine 525 300 Other: Voiding Method Indwelling Catheter Indwelling Catheter Indwelling Catheter - Exam Gen.: in stated age, no acute distress Heart: Normal S1-S2 Lungs: Clear to auscultation bilaterally Abdomen: Soft, no tenderness, positive bowel sounds in all 4 quadrant no guarding or rebound Skin: No new rash Psych: Alert and oriented 1-2 Neuro: No focal deficit - Labs CBC & Chem 7: 10/01/17 06:51 10/01/17 06:51 Labs: Abnormal Lab Results - Last 24 Hours (Table) 09/30/17 09/30/17 09/30/17 Range/Units 11:15 17:14 20:10 WBC (3.8-10.6) k/uL RBC (4.30-5.90) m/uL Hgb (13.0-17.5) gm/dL Hct (39.0-53.0) % RDW (11.5-15.5) % Plt Count (150-450) k/uL BUN (9-20) mg/dL Creatinine (0.66-1.25) mg/dL Glucose (74-99) mg/dL POC Glucose (mg/dL) 235 H 168 H 235 H (75-99) mg/dL Calcium (8.4-10.2) mg/dL 10/01/17 10/01/17 10/01/17 Range/Units 06:47 06:51 06:51 WBC 13.3 H (3.8-10.6) k/uL RBC 2.91 L (4.30-5.90) m/uL Hgb 8.2 L (13.0-17.5) gm/dL Hct 26.0 L (39.0-53.0) % RDW 17.0 H (11.5-15.5) % Plt Count 149 L (150-450) k/uL BUN 60 H (9-20) mg/dL Creatinine 2.47 H (0.66-1.25) mg/dL Glucose 194 H (74-99) mg/dL POC Glucose (mg/dL) 206 H (75-99) mg/dL Calcium 7.9 L (8.4-10.2) mg/dL Assessment and Plan Assessment: 1. Acute on chronic respiratory failure with hypoxia. 2. Encephalopathy likely metabolic on the base of dementia. 3. Bilateral pleural effusion. 4. Acute kidney injury requiring hemodialysis. 5. Urinary tract infection with MRSA. 6. Coronary artery disease. 7. Diabetes mellitus type 2. 8. Chronic atrial fibrillation. Would continue antibiotics per infectious disease recommendation, patient received dialysis yesterday without who fluid taken out and currently still have [address] we will follow up with the nephrology regarding Grullon catheter management would have physical and neck patient no therapy evaluated the patient and consider discharging to a long-term once patient is hemodynamically stable. Plan discussed with the nursing staff at the bedside
[2017-10-01 12:11] LABS: Glucose,Whole Blood 98 mg/dL (75-99)
[2017-10-01 17:24] LABS: Glucose,Whole Blood 141 mg/dL (75-99)
--- NOTE | 2017-10-01 20:04 | PN ---
PROGRESS NOTE DATE OF SERVICE: 10/01/2017. REASON FOR FOLLOWUP: MRSA bacteremia secondary to urinary source. INTERVAL HISTORY: The patient is afebrile. He is feeling slightly weak and lethargic but denies having any chest pain or cough. No abdominal pain. EXAMINATION: Blood pressure 156/80 with a pulse of 70, temperature of 97.9. General description is an elderly male up in the bed in no distress. RESPIRATORY SYSTEM: Unlabored breathing with coarse breath sounds bilaterally. HEART: S1, S2. Regular rate and rhythm. ABDOMEN: Soft, no tenderness. LABS: Hemoglobin is 8.8, white count 13.3 with a BUN of 16, creatinine 2.47. DIAGNOSTIC IMPRESSION AND PLAN: Patient with MRSA bacteremia secondary to urinary source. All the blood cultures are negative. Currently on daptomycin. The patient may be able to finish therapy tomorrow. Will monitor him closely. Continue supportive care. MMODL / IJN: [id number] /
[2017-10-01 22:35] LABS: Glucose,Whole Blood 167 mg/dL (75-99)
[2017-10-01] MEDS: MONTELUKAST 10 MG TAB PO SCH (22:57)
[2017-10-01] MEDS: MULTIVITAMINS, THERA 1 EACH TAB PO SCH (22:58)
[2017-10-02] MEDS: INSULIN ASPART 100 UNIT/ML 1 ML 10 ML VIAL SQ SCH ×4 (07:15→22:27)
[2017-10-02 07:16] LABS: Glucose,Whole Blood 123 mg/dL (75-99)
[2017-10-02] MEDS: FORMOTEROL FUMARATE 20 MCG/2 ML NEBU INHALATION SCH ×2 (07:20→19:35)
[2017-10-02] MEDS: IPRATROPIUM-ALBUTEROL 3 ML NEB INHALATION SCH ×4 (07:20→19:35)
[2017-10-02] MEDS: BUDESONIDE 1 MG/2 ML NEBU INHALATION SCH ×2 (07:20→19:35)
[2017-10-02 07:57] LABS: Anisocytosis Slight; Basophils % (A) 0 %; Eosinophils # (A) 0.1 k/uL (0-0.7); Eosinophils % (A) 1 %; HCT 26.9 % (39.0-53.0); HGB 8.4 gm/dL (13.0-17.5); Lymphocytes # (A) 1.1 k/uL (1.0-4.8); Lymphocytes % (A) 10 %; MCH 27.7 pg (25.0-35.0); MCHC 31.2 g/dL (31.0-37.0); MCV 88.8 fL (80.0-100.0); Mean Platelet Volume 7.6; Monocytes # (A) 0.7 k/uL (0-1.0); Monocytes % (A) 6 %; Neutrophils # (A) 9.3 k/uL (1.3-7.7); Neutrophils % (A) 82 %; Platelet Count 165 k/uL (150-450); RBC 3.03 m/uL (4.30-5.90); RDW 16.9 % (11.5-15.5); WBC 11.3 k/uL (3.8-10.6)
[2017-10-02] MEDS: SODIUM BICARBONATE TAB 650 MG TAB PO SCH ×2 (08:07→22:27)
[2017-10-02] MEDS: PANTOPRAZOLE 40 MG TABLET PO SCH (08:07)
[2017-10-02] MEDS: ISOSORBIDE MONONITRATE ER 30 MG TAB.ER.24H PO SCH (08:07)
[2017-10-02] MEDS: TAMSULOSIN 0.4 MG CAP.ER.24H PO SCH ×2 (08:07→22:27)
[2017-10-02] MEDS: PARoxetine 10 MG TAB PO SCH (08:07)
[2017-10-02] MEDS: predniSONE 20 MG TAB PO SCH (08:07)
[2017-10-02] MEDS: METOPROLOL TARTRATE 12.5 MG TAB PO SCH ×2 (08:07→22:27)
[2017-10-02] MEDS: hydrALAZINE HCL 25 MG TAB PO SCH ×3 (08:08→15:49)
[2017-10-02] MEDS: TRIAMCINOLONE 0.1% CREAM 80 GM TUBE TOPICAL SCH (08:08)
[2017-10-02] MEDS: CLOTRIMAZOLE/BETAMETH 1-0.05% CREAM 45 GM TUBE TOPICAL SCH ×2 (08:08→22:29)
[2017-10-02] MEDS: HEPARIN SODIUM,PORCINE 5,000 UNIT/ML 1 ML VIAL SQ SCH ×3 (08:08→23:33)
[2017-10-02] MEDS: NYSTATIN 100,000UNIT/GM CREAM 30 GM TUBE TOPICAL SCH (08:08)
[2017-10-02 08:09] LABS: Albumin 2.4 g/dL (3.5-5.0); Calcium 8.1 mg/dL (8.4-10.2); Potassium 4.3 mmol/L (3.5-5.1); Total Bilirubin 0.5 mg/dL (0.2-1.3); Total Protein 5.3 g/dL (6.3-8.2)
[2017-10-02] MEDS: INSULIN DETEMIR 100 UNIT/ML 10 ML VIAL SQ SCH (09:22)
[2017-10-02 11:28] LABS: Glucose,Whole Blood 196 mg/dL (75-99)
[2017-10-02] MEDS: SODIUM CHLORIDE 0.9% 1,000 ML IV SCH (12:05)
[2017-10-02] MEDS ORDERED: FUROSEMIDE 10 MG/ML 2 ML VIAL IV ONE (12:46)
--- NOTE | 2017-10-02 12:54 | P.PN ---
Subjective Principal diagnosis: This is a 71-year-old resident of senior care seen with acute kidney injury on chronic kidney disease, currently on hemodialysis. His last dialysis was Tuesday before yesterday. Patient was admitted in July 2017 with sepsis and aspiration pneumonia and at that time his creatinine went up to 3.5 and then gradually improved to 1.8 upon discharge to senior care. Patient presented this admission on September 15 with low oxygen saturations. He has MRSA bacteremia and UTI and is currently being treated for MRSA bacteremia and UTI. Urine culture positive for MRSA and enterococcus. He has history of diastolic CHF. His serologic workup from last admission was negative. Ultrasound reveals no evidence of hydronephrosis. On examination this morning he is awake alert and is much more able to talk and able to recall. He has nasal cannula oxygen but denies any shortness of breath. He says his appetite is fair. He has a Grullon catheter but urine output is in the oliguric range still. Objective - Vital Signs Vital signs: Vital Signs Temp 97.1 F L 10/02/17 06:40 Pulse 76 10/02/17 11:14 Resp 20 10/02/17 08:00 BP 141/71 10/02/17 06:40 Pulse Ox 92 L 10/02/17 07:24 Intake & Output 10/01/17 10/02/17 10/02/17 18:59 06:59 18:59 Intake Total 237 Output Total 350 340 275 Balance -113 -340 -275 Intake: Oral 237 Output: Urine 350 340 275 Other: Voiding Method Indwelling Catheter Indwelling Catheter Indwelling Catheter On examination awake alert oriented. HEENT exam no JVP neck is supple no facial asymmetry Lungs are significant for bilateral coarse crackles not clear but cough. Poor cough. Heart sounds are unremarkable for any murmur rub gallop Abdomen soft nontender no masses felt Extremity exam reveals no edema Neurologically awake alert oriented but profoundly weak. - Labs CBC & Chem 7: 10/02/17 07:30 10/02/17 07:30 Labs: Abnormal Lab Results - Last 24 Hours (Table) 10/01/17 10/01/17 10/02/17 Range/Units 17:22 22:27 07:14 WBC (3.8-10.6) k/uL RBC (4.30-5.90) m/uL Hgb (13.0-17.5) gm/dL Hct (39.0-53.0) % RDW (11.5-15.5) % Neutrophils # (1.3-7.7) k/uL BUN (9-20) mg/dL Creatinine (0.66-1.25) mg/dL Glucose (74-99) mg/dL POC Glucose (mg/dL) 141 H 167 H 123 H (75-99) mg/dL Calcium (8.4-10.2) mg/dL Total Protein (6.3-8.2) g/dL Albumin (3.5-5.0) g/dL 10/02/17 10/02/17 10/02/17 Range/Units 07:30 07:30 11:25 WBC 11.3 H (3.8-10.6) k/uL RBC 3.03 L (4.30-5.90) m/uL Hgb 8.4 L (13.0-17.5) gm/dL Hct 26.9 L (39.0-53.0) % RDW 16.9 H (11.5-15.5) % Neutrophils # 9.3 H (1.3-7.7) k/uL BUN 67 H (9-20) mg/dL Creatinine 2.79 H (0.66-1.25) mg/dL Glucose 117 H (74-99) mg/dL POC Glucose (mg/dL) 196 H (75-99) mg/dL Calcium 8.1 L (8.4-10.2) mg/dL Total Protein 5.3 L (6.3-8.2) g/dL Albumin 2.4 L (3.5-5.0) g/dL Assessment and Plan Assessment: Assessment: 1. Acute kidney injury secondary to ATN secondary to bacteremia/UTI and diuresis. No evidence of hydronephrosis noted on renal ultrasound. Serologies from last month were all negative. On hemodialysis with a Tyler catheter in the right groin. Dialyze on 09/30/2079 09/30/2017. Day before Yesterday's dialysis was uneventful. Urine output is marginal but labs are stable and there is possibility of congestive heart failure, based on his lung findings. 2. MRSA bacteremia. On antibiotics 3. UTI with urine culture positive for MRSA and enterococcus. 4. Anemia, iron replete. Hemoglobin down to 8.2 from 8.7 5. Rule out chronic kidney disease. Creatinine in April 2016 was 1.2. Prior to that he was noted to be 0.9 in November 2015. 6. Benign hypertension. Controlled. Blood pressure at target 130s 7. Insulin-dependent diabetes mellitus. Plan- 1. Will hold off dialysis today and try to diurese him with Lasix IV 100 mg and see. 2. Scheduled to be dialyzed tomorrow unless his urine output is significantly improved and his creatinine starts improving. 3. His mental status changes likely is the result of the bacteremia. 2. Watch hemoglobin as it can down from 8.7-8.2 to 8.4 this morning. 3. Maintain blood pressure around 120s to 130s so his kidney can recover . 4. Ensure adequate nutritional support 5. Monitor labs, next dialysis is likely to be tomorrow Tuesday, final decision to be based upon whether there is any improvement in his renal function
[2017-10-02] MEDS ORDERED: FUROSEMIDE 10 MG/ML 10 ML VIAL IV ONE (13:30)
--- NOTE | 2017-10-02 16:11 | P.PN ---
Subjective Progress Note Date: 10/02/17 Principal diagnosis: Acute kidney injury Patient continued to be confused at baseline mental status, tolerating diet, urine output continued to be at baseline around 40 mL/h and his Grullon catheter bag, patient seems to be comfortable in no acute distress and denying pain. Objective - Vital Signs Vital signs: Vital Signs Temp 98.9 F 10/02/17 15:23 Pulse 78 10/02/17 16:08 Resp 18 10/02/17 16:08 BP 150/83 10/02/17 15:23 Pulse Ox 97 10/02/17 16:08 Intake & Output 10/01/17 10/02/17 10/02/17 18:59 06:59 18:59 Intake Total 237 Output Total 350 340 275 Balance -113 340 -275 Intake: Oral 237 Output: Urine 350 340 275 Other: Voiding Method Indwelling Catheter Indwelling Catheter Indwelling Catheter # Bowel Movements 1 - Exam Gen.: in stated age, no acute distress Heart: Normal S1-S2 Lungs: Fine crackles bilaterally on the lower bases Abdomen: Soft, no tenderness, positive bowel sounds in all 4 quadrant no guarding or rebound Skin: No new rash Psych: Alert and oriented 1-2 Neuro: No focal deficit - Labs CBC & Chem 7: 10/02/17 07:30 10/02/17 07:30 Labs: Abnormal Lab Results - Last 24 Hours (Table) 10/01/17 10/01/17 10/02/17 Range/Units 17:22 22:27 07:14 WBC (3.8-10.6) k/uL RBC (4.30-5.90) m/uL Hgb (13.0-17.5) gm/dL Hct (39.0-53.0) % RDW (11.5-15.5) % Neutrophils # (1.3-7.7) k/uL BUN (9-20) mg/dL Creatinine (0.66-1.25) mg/dL Glucose (74-99) mg/dL POC Glucose (mg/dL) 141 H 167 H 123 H (75-99) mg/dL Calcium (8.4-10.2) mg/dL Total Protein (6.3-8.2) g/dL Albumin (3.5-5.0) g/dL 10/02/17 10/02/17 10/02/17 Range/Units 07:30 07:30 11:25 WBC 11.3 H (3.8-10.6) k/uL RBC 3.03 L (4.30-5.90) m/uL Hgb 8.4 L (13.0-17.5) gm/dL Hct 26.9 L (39.0-53.0) % RDW 16.9 H (11.5-15.5) % Neutrophils # 9.3 H (1.3-7.7) k/uL BUN 67 H (9-20) mg/dL Creatinine 2.79 H (0.66-1.25) mg/dL Glucose 117 H (74-99) mg/dL POC Glucose (mg/dL) 196 H (75-99) mg/dL Calcium 8.1 L (8.4-10.2) mg/dL Total Protein 5.3 L (6.3-8.2) g/dL Albumin 2.4 L (3.5-5.0) g/dL Assessment and Plan Assessment: 1. Acute on chronic respiratory failure with hypoxia. With worsening crackles on physical examination bilateral lower bases 2. Encephalopathy likely metabolic on the base of dementia. 3. Bilateral pleural effusion. 4. Acute kidney injury requiring hemodialysis. 5. Urinary tract infection with MRSA. 6. Coronary artery disease. 7. Diabetes mellitus type 2. 8. Chronic atrial fibrillation. I have discussed with nephrology current management and patient received 100 mg IV Lasix push and we would like to continue monitoring urine output continue monitoring his fluid balance and plan for dialysis in the morning. Would continue with current antibiotics and have physical and neck patient no therapy evaluated the patient regarding discharge planning and would have case management evaluation in the morning regarding his future dialysis and discharge placement
[2017-10-02 17:38] LABS: Glucose,Whole Blood 240 mg/dL (75-99)
[2017-10-02 20:44] LABS: Glucose,Whole Blood 275 mg/dL (75-99)
--- NOTE | 2017-10-02 22:11 | PN ---
PROGRESS NOTE DATE OF SERVICE: 10/02/2017. REASON FOR FOLLOWUP: Methicillin-resistant Staphylococcus aureus bacteremia secondary to urinary source. INTERVAL HISTORY: The patient is afebrile. He is currently breathing comfortably. Denies having any chest pain. No shortness of breath or cough. No abdominal pain. No diarrhea. EXAMINATION: Blood pressure 150/83 with a pulse of 73, temperature 98.9. He is 97% on 4 L nasal cannula. General description is an elderly male lying in bed in no distress. Respiratory system: Unlabored breathing. Clear to auscultation anteriorly. Heart S1, S2. Regular rate and rhythm. Abdomen soft, no tenderness. Extremities: No edema of the feet. LABS: Hemoglobin 8.4, white count 11.3 with a BUN of 67, creatinine 2.79. DIAGNOSTIC IMPRESSION AND PLAN: Patient with MRSA bacteremia secondary to urinary source with a follow up blood culture has been negative. Patient underlying infection has been adequately treated. Had CBC about 2 weeks ago, with negative blood culture. Daptomycin will be discontinued. The patient will be watched closely off antibiotic therapy. Continue supportive care. MMODL / IJN: [id number] /
[2017-10-02] MEDS: MULTIVITAMINS, THERA 1 EACH TAB PO SCH (22:27)
[2017-10-02] MEDS: MONTELUKAST 10 MG TAB PO SCH (22:27)
[2017-10-03 06:50] LABS: Glucose,Whole Blood 174 mg/dL (75-99)
[2017-10-03] MEDS: BUDESONIDE 1 MG/2 ML NEBU INHALATION SCH ×2 (07:21→19:49)
[2017-10-03] MEDS: IPRATROPIUM-ALBUTEROL 3 ML NEB INHALATION SCH ×4 (07:21→19:50)
[2017-10-03] MEDS: FORMOTEROL FUMARATE 20 MCG/2 ML NEBU INHALATION SCH ×2 (07:21→19:58)
[2017-10-03] MEDS: PANTOPRAZOLE 40 MG TABLET PO SCH (07:52)
[2017-10-03] MEDS: INSULIN ASPART 100 UNIT/ML 1 ML 10 ML VIAL SQ SCH ×4 (07:52→21:07)
[2017-10-03] MEDS: HEPARIN SODIUM,PORCINE 5,000 UNIT/ML 1 ML VIAL SQ SCH ×3 (07:53→23:28)
[2017-10-03] MEDS: TRIAMCINOLONE 0.1% CREAM 80 GM TUBE TOPICAL SCH (07:56)
[2017-10-03] MEDS: NYSTATIN 100,000UNIT/GM CREAM 30 GM TUBE TOPICAL SCH (07:56)
[2017-10-03] MEDS: ACETAMINOPHEN TAB 500 MG TAB PO PRN (08:03)
[2017-10-03] MEDS: INSULIN DETEMIR 100 UNIT/ML 10 ML VIAL SQ SCH (08:04)
--- NOTE | 2017-10-03 11:54 | PN ---
PROGRESS NOTE Patient is seen for followup for acute kidney disease currently requiring hemodialysis. Overall, mentation has improved. Patient is also volume overloaded and will be having about 3 L of ultrafiltration. He has an indwelling Gruloln catheter with good urine output. The 24-hour urine output was about 726 mL. PHYSICAL EXAMINATION: On examination today, the patient is sitting up in bed. He is not in the acute distress. He is awake. He is able to carry on a conversation. Blood pressure is elevated at 173/84, previously it was 161/80 yesterday. Heart rate 88 per minute. EXAMINATION OF THE HEART: S1, S2. EXAMINATION OF THE LUNGS: Bilateral breath sounds are heard. Abdomen is soft, nontender. The patient has sacral edema. Examination of the lower extremities shows no significant edema. [employer] exam is grossly intact. LABS: Labs show sodium 139 from yesterday, BUN 67, serum creatinine 2.79, albumin 2.4, hemoglobin 8.4 g/dL. ASSESSMENT: 1. Acute kidney injury, acute tubular necrosis, currently nonoliguric requiring renal replacement therapy. There are no labs from today. Urine output remains borderline. At this time, patient should continue with renal replacement therapy and we can consider discontinuation of dialysis as outpatient if his renal function continues to improve. 2. Urinary tract infection with methicillin-resistant Staphylococcus aureus and Enterococcus faecalis. 3. Methicillin-resistant Staphylococcus aureus bacteremia. 4. Altered mentation secondary to sepsis as well as some degree from uremia, currently improved. 5. Hypertension, partly volume sensitive. 6. Anemia of chronic disease, maintained on Aranesp. PLAN: Will continue with hemodialysis for now. I discussed with discharge planning and case management to arrange for outpatient placement. I will DC the sodium bicarb. We will continue to monitor for recovery of renal function as outpatient. MMODL / IJN: [id number] /
[2017-10-03 11:57] LABS: Glucose,Whole Blood 107 mg/dL (75-99)
[2017-10-03] MEDS: hydrALAZINE HCL 25 MG TAB PO SCH ×3 (12:09→17:17)
[2017-10-03] MEDS: predniSONE 20 MG TAB PO SCH (12:14)
[2017-10-03] MEDS: METOPROLOL TARTRATE 12.5 MG TAB PO SCH ×2 (12:14→21:07)
[2017-10-03] MEDS: ISOSORBIDE MONONITRATE ER 30 MG TAB.ER.24H PO SCH (12:14)
[2017-10-03] MEDS: SODIUM CHLORIDE 0.9% 1,000 ML IV SCH (12:15)
[2017-10-03] MEDS: PARoxetine 10 MG TAB PO SCH (12:15)
[2017-10-03] MEDS: TAMSULOSIN 0.4 MG CAP.ER.24H PO SCH ×2 (12:15→21:07)
[2017-10-03] MEDS: SODIUM BICARBONATE TAB 650 MG TAB PO SCH (12:24)
--- NOTE | 2017-10-03 13:13 | P.PN ---
Subjective Progress Note Date: 10/03/17 This is a 71-year-old male one of Dr. Lucas Gallo's patient with past medical history of hypertension, hyperlipidemia, diabetes, COPD, chronic systolic and possible diastolic heart failure, alcoholism, coronary artery disease and underwent CABG 2015 ended up having multiple complications and the multiple rehospitalization for worsening shortness of breath, A. fib and other complication. He has had several admissions over the past 2 months for recurrent metabolic encephalopathy with sepsis of possible aspiration pneumonia and urinary tract infection. He has been followed by Dr. Nicholas, Dr. Louis. Thought changes were possibly related to narcotic use. On recent admission in July patient did require intubation. He is currently residing at [facility] on the care of Dr. Blackman and most recent discharge was on September 05. Patient was brought in by EMS on September 14 to the emergency center due to mental status changes. Patient was treated with increased Lasix and return [place] [facility] for CHF exacerbation. His vital signs were stable at that time , BUN 36 creatinine 2.08, normal white count. Troponin was negative. Patient return to [facility] emergency center on September 15 due to pulse ox of 80s, generalized weakness and decreased level of consciousness. Patient barely was placed on oxygen by EMS and became much more alert. Temperature max is 100.2, vital signs were otherwise stable. Initial pulse ox was 89%. EKG was atrial fibrillation controlled rate with T-wave inversion in the inferior leads. Patient was admitted to the selective care unit and consult placed with cardiology and pulmonary medicine. Patient's mentation appears to be back to his baseline. He is more alert and interactive today is feeling little bit better slightly decreased shortness of breath compared to before. Patient be seen cardiology still on diuretics whether can benefit from any further testing cardiac-hardwick are not is to be determined. Also patient has passed his swallow eval despite having aspiration pneumonia being treated for. 09/18/2017: Patient is doing much better is drinking his coffee this had his breakfast earlier. His microbiology came back positive for MRSA and enterococcus, patient is seen infectious disease was switched from vancomycin to daptomycin. 09/19: Patient is clinically doing much better surprisingly his chest x-ray came back more positive for low below pneumonia with multi-patchy area in the chest, still treated for UTI and aspiration pneumonia with the same antibiotics. Patient is interacting more and his acute mental status change reverse almost back to its baseline. 09/20: Patient has been followed by phone or medicine and cardiology. Cardiology has signed off and following as needed only. Dr. oLuis is following for MRSA bacteremia likely urinary tract infection is the source. Grullon catheter has been exchanged. Plan is for patient to be on daptomycin for 2 weeks. Midline is to be placed today. Patient has been afebrile. Pulse ox 95 % on 6 L nasal cannula. Today, BUN 46, creatinine 2.94 potassium 5.4. Hemoglobin is stable at 8.9. Other electrolytes within normal limits and liver function tests within normal limits. Patient was started on Solu-Medrol 60 mg every 6 hours bipolar medicine yesterday. Blood sugars are running in the 200s.Solu-Medrol will be decreased to 40 mg every 8 hours. We'll plan for discharge tomorrow. 09/21: Pulse ox is 97% on 3 L nasal cannula. Renal function is worsening with BUN 61 and creatinine 3.65, hemoglobin 8.2. Plan is for renal function to be monitored at the [place] [facility]. Patient denies any difficulty breathing. Patient is drowsy but answers questions appropriately and denies any new complaints. He denies any abdominal pain. No nausea or vomiting. Grullon catheter remains in place. Plan was for patient to be discharged to [facility] but insurance authorization was still pending. 09/22: Insurance authorization has been obtained but discharge is being held as patient's renal function has continued to climb and he is at a BUN of 75 and creatinine 3.99. Consult added for Dr. Mcbride. Lasix has been discontinued and patient started on IV fluids 0.9 normal saline at 75 mL per hour. Solu- Medrol will be decreased to 40 mg every 12 hours. Blood sugars have been running high for which Levemir 10 units daily added. Patient states that he is not feeling good today. He is not eating or drinking very much. He does have Glucerna. He states he has no appetite. 09/23: Patient sitting up in bed is feeling better today he denies any chest pain , is less short of breath, he continues to have Grullon catheter in place, we will postpone his discharge until Tuesday due to his acute kidney injury. 09/24: Total: Patient wanted to get up from bed, however he is recently , otherwise is comfortable, patient pulled out th midline last night, this would be reinserted for new midline and ordered for Tuesday, completed IV antibiotics daptomycin for MRSA bacteremia until October 02 by infectious disease, creatinine remains to be elevated at 4.7, and admitting creatinine of 2.5. With catheter draining clear, Grullon catheter remaining clear urine nephrology following., 09/25: Patient is comfortable today, however creatinine reached be high at 4.5 bun at 99. hyperkalemia 5.5 kayexelate 15 mg x 1 dose weekly Solu-Medrol and discontinue IV, oral prednisone 40the morning, midline IV access anticipated to be performed in the morning 09/26 creatinine remains higher with worsening of BUN, nephrology discussed hemodialysis, patient cannot make his own well-informed medical decision, KAIA is the youngest son, and I've spoken to him to make the final decision to assist with the father, and family members as well. The patient himself when inquired, does not want to be on dialysis, he wants his youngest son to assist, he would await family decision with KAIA next of kin [place] for final recommendation 09/27: Family undecided yet regarding renal replacement therapy, patient cannot fully understand the consequences and the indication for renal replacement therapy, patient states that if he could avoid it he would not go for dialysis however he also wants things that are for him.daughter at bedside, Chintan, updated regards to outcome,patient still remains severely azotemiaBUN of 105 creatinine 4.75 potassium 4.8 09/28: Patient and son wish to pursue hemodialysis. Dr. Cabello consult and patient will be transferred to ICU to do catheter placement and start dialysis. Dr. Tang to be updated. BUN is 104 and creatinine 4.41. Blood sugars are running in the 200s and 300s. Levemir dose increased. 09/29: Patient had dialysis catheter placement on the right from oral with Dr. Cabello and patient was transferred into the intensive care unit. He has been hemodynamically stable. Dr. Mcbride has ordered hemodialysis today and will be determined on a day-to-day basis. BUN is 106 and creatinine 4.1. Blood sugars remain elevated secondary to steroids. He is currently on prednisone 40 mg daily. Lantus was increased to 12 units yesterday. Cardiology has reduced the dose of Lopressor with parameters with dialysis. Patient will be transferred to the [facility] floor later today. Patient's mental status is alert and oriented today. Patient has been asking for items that on his diet and stating that he only has 6 months to live to his nurse. 09/30: Repeat BUN 79 and creatinine 3.17 after dialysis yesterday. Hemoglobin is 8.7. Awaiting determination from nephrology and patient will be re-dialyzed today and if he will need long-term at the [place] [facility]. At this time, we are anticipate discharge back to [facility] on Tuesday. Patient continued to be confused at baseline mental status, tolerating diet, urine output continued to be at baseline. He to 40 mL/h and his Grullon catheter bag, patient seems to be comfortable in no acute distress and denying pain. 10/01: Patient continued to be confused at baseline mental status, tolerating diet , urine output continued to be at baseline. He to 40 mL/h and his Grullon catheter bag, patient seems to be comfortable in no acute distress and denying pain 10/02: Patient continued to be confused at baseline mental status, tolerating diet, urine output continued to be at baseline around 40 mL/h and his Grullon catheter bag, patient seems to be comfortable in no acute distress and denying pain. 10/03: Patient was given Lasix 100 mg IV yesterday. He is scheduled for hemodialysis of 3 L today. Awaiting determination from nephrology whether patient will be long-term dialysis and a chair time for him prior to discharge back to [facility] [place]. Grullon catheter remains in place. No new complaints. Objective - Vital Signs Vital signs: Vital Signs Temp 97.6 F 10/03/17 05:00 Pulse 92 10/03/17 07:37 Resp 17 10/03/17 05:00 BP 173/84 10/03/17 05:00 Pulse Ox 95 10/03/17 05:00 Intake & Output 10/02/17 10/03/17 10/03/17 18:59 06:59 18:59 Intake Total 240 Output Total 725 1 1 Balance -725 239 -1 Weight 82.2 kg Intake: Oral 240 Output: Urine 725 Stool 1 1 Other: Voiding Method Indwelling Catheter Indwelling Catheter Indwelling Catheter # Bowel Movements 1 1 - Exam General appearance: Present: cooperative, disheveled, no acute distress. Absent : average body habitus, mild distress, morbidly obese, obese, severe distress, thin - EENT Eyes: Present: normal appearance. Absent: abnormal pupil, anicteric sclerae, disc margins sharp, edentulous, EOMI, PERRLA, fundus normal, photophobia, dentition normal, poor dentition, ptosis, scleral icterus ENT: Present: hard of hearing, pharyngeal erythema. Absent: hearing grossly normal, NA/AT, normal oropharynx, other, thrush, tonsillar exudates, tonsillar swelling Ears: bilateral: normal - Neck Neck: Present: normal ROM. Absent: lymphadenopathy, other, rigidity, stridor, thyromegaly Carotids: bilateral: upstroke normal, upstroke delayed Thyroid: bilateral: normal size - Respiratory Respiratory: bilateral: CTA, diminished, dullness, rales, rhonchi - Cardiovascular Rhythm: regular Heart sounds: normal: S1, S2 Abnormal Heart Sounds: Present: systolic murmur, S3 Gallop - Gastrointestinal General gastrointestinal: Present: decreased bowel sounds, distended, normal bowel sounds, soft. Absent: absent bowel sounds, hepatomegaly, hyperactive bowel sounds, organomegaly, rigid, scaphoid, splenomegaly, tenderness, umbilical hernia, ventral hernia - Integumentary Integumentary: Present: normal, pale, rash. Absent: calor, cellulitis, cyanotic , decreased turgor, flushed, jaundiced, normal turgor, ulcer - Neurologic Neurologic: Present: CNII-XII intact - Musculoskeletal Musculoskeletal: Present: generalized weakness, strength equal bilaterally. Absent: gait normal, right sided weakness, left sided weakness - Psychiatric Psychiatric: A&O x's 2, appropriate affect, intact judgment & insight - Labs CBC & Chem 7: 10/02/17 07:30 10/02/17 07:30 Labs: Abnormal Lab Results - Last 24 Hours (Table) 10/02/17 10/02/17 10/02/17 Range/Units 11:25 17:35 20:19 POC Glucose (mg/dL) 196 H 240 H 275 H (75-99) mg/dL 10/03/17 Range/Units 06:48 POC Glucose (mg/dL) 174 H (75-99) mg/dL Assessment and Plan Plan: 1. Acute hypoxic respiratory failure secondary to bilateral pleural effusions with bibasilar atelectasis due to acute on chronic diastolic heart failure. Pulmonary medicine has ruled out pneumonia. 2. Hypoxia encephalopathy most likely secondary to low pulse ox. Patient's mentation improved with oxygen therapy. Continue as in #1., Has improved from the last 48 hours. 3. Pneumonia ruled out by pulmonary medicine. 4. Acute kidney injury with CKD stage III with recent acute failure secondary to ATN secondary to sepsis. Consult with Dr. Mcbride is appreciated. Continue sodium bicarb 650 mg twice daily. Dialysis catheter placed by Dr. Cabello. Patient on dialysis treatment. 5. Arrhythmia history with prior Nonsustained ventricular tachycardia on 2015 H and was seen by cardiology echocardiogramJuly 2016 showed atrial fibrillation with small pericardial effusion noted ejection fraction 45-50% inferolateral hypokinesis with palpation of LA size over 40. 6. Grullon catheter associated MRSA urinary tract infection and bacteremia with sepsis Dr. Louis recommends daptomycin. Course will be completed on October 02. 7. CAD post CABG. continue aspirin 81 mg orally once every day, Lipitor 40 mg daily, Lopressor. 8. Diabetes mellitus type II with hyperglycemia secondary to steroids: Levemir has been added. Continue with NovoLog sliding scale. Patient has been off scheduled insulin due to hypoglycemia. 9. Hypertensive cardiovascular disease. Continue amlodipine 5 mg twice daily, hydralazine 100 mg 3 times daily, lisinopril 5 mg daily, lopressor 12.5 mg twice daily. 10. Hyperlipidemia: Continue statin. 11. Chronic A. fib. Patient is no longer on Coumadin. This may be related to risk of falls. 12. Recurrent depression: Continue Paxil. 13. Seizure history: Has been on Keppra 750 g twice a day with no new seizure activity. 14. Urinary retention with BPH: Patient has chronic Grullon catheter. Continue Flomax. 15. Severe GERD: Will add Protonix 40 mg daily 16. Severe protein calorie malnutrition due to lack of oral intake. Protein supplement. 17. Chronic low back pain. No change. Patient is off [place] Discharge plan: [facility] [place] on Tuesday Impression and plan of care have been directed as dictated by the signing physician. Carly Greene nurse practitioner acting as scribe for signing physician.
[2017-10-03 17:18] LABS: Glucose,Whole Blood 130 mg/dL (75-99)
[2017-10-03 20:22] LABS: Glucose,Whole Blood 196 mg/dL (75-99)
--- NOTE | 2017-10-03 20:48 | PN ---
PROGRESS NOTE DATE OF SERVICE: 10/03/2017. REASON FOR FOLLOWUP: MRSA bacteremia secondary to urinary source. INTERVAL HISTORY: The patient is afebrile, has been breathing comfortably. Denies having any chest pain or cough. No abdominal pain or diarrhea. Was undergoing dialysis and tolerating treatment so far with a plan for about 3 L of fluid today per the dialysis nurse. EXAMINATION: Blood pressure 145/65 with a pulse of 74, temperature 99.5. GENERAL DESCRIPTION: An elderly male up in the bed in no distress. RESPIRATORY SYSTEM: Unlabored breathing. Clear to auscultation anteriorly. HEART: S1, S2. Regular rate and rhythm. ABDOMEN: Soft, no tenderness. LABS: No new lab have been obtained. Has white count is 11.3 as of yesterday. DIAGNOSTIC IMPRESSION AND PLAN: Patient with MRSA bacteremia secondary to urinary source. Followup blood culture from 09/17 has been negative. The patient received 2 weeks of antibiotics before negative blood culture. Daptomycin will be discontinued. The patient will be monitored closely off antibiotic. Continue supportive care. MMODL / IJN: [id number] /
[2017-10-03] MEDS: MULTIVITAMINS, THERA 1 EACH TAB PO SCH (21:07)
[2017-10-03] MEDS: MONTELUKAST 10 MG TAB PO SCH (21:07)
[2017-10-04] MEDS: predniSONE 20 MG TAB PO SCH (07:56)
[2017-10-04] MEDS: PARoxetine 10 MG TAB PO SCH (07:56)
[2017-10-04] MEDS: METOPROLOL TARTRATE 12.5 MG TAB PO SCH ×2 (07:56→21:37)
[2017-10-04] MEDS: PANTOPRAZOLE 40 MG TABLET PO SCH (07:56)
[2017-10-04] MEDS: HEPARIN SODIUM,PORCINE 5,000 UNIT/ML 1 ML VIAL SQ SCH ×3 (07:56→23:20)
[2017-10-04] MEDS: ISOSORBIDE MONONITRATE ER 30 MG TAB.ER.24H PO SCH (07:56)
[2017-10-04] MEDS: hydrALAZINE HCL 25 MG TAB PO SCH ×3 (07:56→15:24)
[2017-10-04] MEDS: TAMSULOSIN 0.4 MG CAP.ER.24H PO SCH ×2 (07:57→21:37)
[2017-10-04] MEDS: TRIAMCINOLONE 0.1% CREAM 80 GM TUBE TOPICAL SCH (07:59)
[2017-10-04] MEDS: NYSTATIN 100,000UNIT/GM CREAM 30 GM TUBE TOPICAL SCH (07:59)
[2017-10-04 08:10] LABS: Glucose,Whole Blood 183 mg/dL (75-99)
[2017-10-04] MEDS: BUDESONIDE 1 MG/2 ML NEBU INHALATION SCH ×2 (08:12→19:24)
[2017-10-04] MEDS: FORMOTEROL FUMARATE 20 MCG/2 ML NEBU INHALATION SCH ×2 (08:12→19:40)
[2017-10-04] MEDS: IPRATROPIUM-ALBUTEROL 3 ML NEB INHALATION SCH ×4 (08:12→19:24)
[2017-10-04] MEDS: INSULIN DETEMIR 100 UNIT/ML 10 ML VIAL SQ SCH (08:19)
[2017-10-04] MEDS: INSULIN ASPART 100 UNIT/ML 1 ML 10 ML VIAL SQ SCH ×4 (08:19→21:31)
[2017-10-04] MEDS ORDERED: FUROSEMIDE 10 MG/ML 4 ML VIAL IV STA (10:38)
[2017-10-04] MEDS: SODIUM CHLORIDE 0.9% 1,000 ML IV SCH (11:05)
[2017-10-04 11:07] LABS: Anisocytosis Slight; HCT 26.3 % (39.0-53.0); HGB 8.4 gm/dL (13.0-17.5); MCH 28.8 pg (25.0-35.0); MCV 89.9 fL (80.0-100.0); Mean Platelet Volume 7.9; Platelet Count 141 k/uL (150-450); RBC 2.93 m/uL (4.30-5.90); RDW 18.2 % (11.5-15.5); WBC 17.8 k/uL (3.8-10.6)
[2017-10-04 11:09] LABS: Calcium 7.9 mg/dL (8.4-10.2); Potassium 3.9 mmol/L (3.5-5.1)
[2017-10-04 12:56] LABS: Glucose,Whole Blood 118 mg/dL (75-99)
--- NOTE | 2017-10-04 14:32 | XR ---
EXAMINATION TYPE: XR chest 1V DATE OF EXAM: 10/04/2017 COMPARISON: 09/29/2017 HISTORY: Shortness of breath TECHNIQUE: Single frontal view of the chest is obtained. FINDINGS: Cardiomegaly and postsurgical change with bilateral pleural effusions, consolidation and diffuse inte rstitial pattern. No pneumothorax. Arthropathy of the shoulders. IMPRESSION: 1. Correlate for CHF with bilateral pleural effusions essentially stable from the prior exam. Underly ing pneumonia not excluded.
--- NOTE | 2017-10-04 15:25 | PN ---
PROGRESS NOTE DATE OF SERVICE: 10/04/2017 REASON FOR FOLLOWUP VISIT: MRSA bacteremia secondary to urinary source. INTERVAL HISTORY: The patient is currently afebrile, breathing comfortably. Denies having any chest pain. No abdominal pain or any diarrhea reported. PHYSICAL EXAMINATION: Blood pressure is 152/80 with a pulse of 70, temperature 97.8. He is 93% on 3 L nasal cannula. General description is an elderly male, up in the bed in no distress. RESPIRATORY SYSTEM: Unlabored breathing, clear to auscultation anteriorly. HEART: S1, S2, regular rate and rhythm. ABDOMEN: Soft, no tenderness. LABS: Hemoglobin 8.4, white count 17.2, BUN of 53 with creatinine 2.27. DIAGNOSTIC IMPRESSION AND PLAN: 1. Patient with methicillin resistant Staphylococcus aures bacteremia secondary to urinary source that has been adequately treated, off daptomycin. 2. Patient now with jump in the white count, could be more likely to Grullon catheter. Recommend changing his Grullon or getting a new culture from the new Grullon, add and repeat a CBC tomorrow. MMODL / IJN: [id number] /
--- NOTE | 2017-10-04 16:16 | PN ---
PROGRESS NOTE Patient is seen for followup for acute kidney injury. Patient was dialyzed yesterday. His creatinine is at 2.27. Patient has an indwelling Grullon catheter; 24-hour urine output was 1.4 L. Currently patient is sleeping. He is arousable. He is not in any acute distress. Blood pressure is 159/80, heart rate 70 per minute. He is afebrile. EXAMINATION OF THE HEART: S1, S2. EXAMINATION OF LUNGS: Bilateral breath sounds are heard. ABDOMEN: Soft, non-tender. Examination of lower extremities shows no evidence of edema. ARC CUTTER exam is grossly intact. Patient is moving all 43 extremities. Labs show sodium 140, potassium 3.9, BUN 56, serum creatinine 2.27. ASSESSMENT: 1. Acute kidney injury, currently requiring hemodialysis. I will hold off on hemodialysis tomorrow and assess for possible recovery of renal function. Patient continues to have good urine output. His urine output was low previously; it has definitely picked up. If he needs to continue with renal replacement therapy, patient will need a new catheter, as this is a temporary Tyler catheter in the right femoral. 2. Methicillin-resistant Staphylococcus aeruginosa bacteremia. 3. Methicillin-resistant Staphylococcus aeruginosa urinary tract infection and urinary tract infection with Enterococcus faecalis. 4. Volume overload, currently improved. PLAN: Hold dialysis tomorrow. Repeat labs in a.m. Continue with indwelling Grullon catheter. MMODL / IJN: [id number] /
[2017-10-04 17:15] LABS: Glucose,Whole Blood 103 mg/dL (75-99)
[2017-10-04 19:16] LABS: Amorphous Sediment,Urine Rare /hpf; Appearance,Urine Cloudy (Clear); Bilirubin,Urine Negative (Negative); Blood,Urine Small (Negative); Color,Urine Light Yellow; Glucose,Urine (UA) Negative (Negative); Hyaline Casts,Urine 3 /lpf (0-2); Ketones,Urine Negative (Negative); Leukocyte Esterase,Urine Large (Negative); Nitrite,Urine Negative (Negative); PH, Urine 5.5 (5.0-8.0); Protein,Urine 2+ (Negative); RBC,Urine 15 /hpf (0-5); Specific Gravity,Urine 1.008 (1.001-1.035); Squamous Epithelial Cell,Urine 5 /hpf (0-4); Urobilinogen,Urine <2.0 mg/dL (<2.0); WBC,Urine 11 /hpf (0-5)
[2017-10-04 20:43] LABS: Glucose,Whole Blood 114 mg/dL (75-99)
[2017-10-04] MEDS: MULTIVITAMINS, THERA 1 EACH TAB PO SCH (21:37)
[2017-10-04] MEDS: MONTELUKAST 10 MG TAB PO SCH (21:37)
[2017-10-04] MEDS: FLUCONAZOLE 100 MG TAB PO SCH (21:37)
[2017-10-05] MEDS: IPRATROPIUM-ALBUTEROL 3 ML NEB INHALATION SCH ×4 (07:05→20:08)
[2017-10-05] MEDS: BUDESONIDE 1 MG/2 ML NEBU INHALATION SCH ×2 (07:05→20:07)
[2017-10-05] MEDS: FORMOTEROL FUMARATE 20 MCG/2 ML NEBU INHALATION SCH ×2 (07:05→20:07)
[2017-10-05 07:09] LABS: Glucose,Whole Blood 184 mg/dL (75-99)
[2017-10-05] MEDS: INSULIN ASPART 100 UNIT/ML 1 ML 10 ML VIAL SQ SCH ×4 (07:45→22:12)
[2017-10-05] MEDS: PANTOPRAZOLE 40 MG TABLET PO SCH (07:46)
[2017-10-05] MEDS: HEPARIN SODIUM,PORCINE 5,000 UNIT/ML 1 ML VIAL SQ SCH ×3 (07:46→23:25)
[2017-10-05] MEDS: hydrALAZINE HCL 25 MG TAB PO SCH ×3 (07:46→17:39)
[2017-10-05] MEDS: INSULIN DETEMIR 100 UNIT/ML 10 ML VIAL SQ SCH (07:47)
[2017-10-05] MEDS: FLUCONAZOLE 100 MG TAB PO SCH (07:47)
[2017-10-05] MEDS: ISOSORBIDE MONONITRATE ER 30 MG TAB.ER.24H PO SCH (07:48)
[2017-10-05] MEDS: METOPROLOL TARTRATE 12.5 MG TAB PO SCH ×2 (07:48→22:12)
[2017-10-05] MEDS: PARoxetine 10 MG TAB PO SCH (07:48)
[2017-10-05] MEDS: NYSTATIN 100,000UNIT/GM CREAM 30 GM TUBE TOPICAL SCH (07:48)
[2017-10-05] MEDS: SODIUM CHLORIDE 0.9% 1,000 ML IV SCH (07:49)
[2017-10-05] MEDS: TRIAMCINOLONE 0.1% CREAM 80 GM TUBE TOPICAL SCH (07:49)
[2017-10-05] MEDS: TAMSULOSIN 0.4 MG CAP.ER.24H PO SCH ×2 (07:49→22:12)
[2017-10-05 07:53] LABS: Anisocytosis Slight; HCT 25.2 % (39.0-53.0); MCH 28.4 pg (25.0-35.0); MCHC 31.5 g/dL (31.0-37.0); MCV 90.1 fL (80.0-100.0); Platelet Count 152 k/uL (150-450); RDW 17.9 % (11.5-15.5); WBC 12.3 k/uL (3.8-10.6)
[2017-10-05 08:19] LABS: Calcium 7.8 mg/dL (8.4-10.2); Potassium 3.8 mmol/L (3.5-5.1)
--- NOTE | 2017-10-05 08:26 | P.PN ---
Subjective Progress Note Date: 10/04/17 This is a 71-year-old male one of Dr. Lucas Gallo's patient with past medical history of hypertension, hyperlipidemia, diabetes, COPD, chronic systolic and possible diastolic heart failure, alcoholism, coronary artery disease and underwent CABG 2015 ended up having multiple complications and the multiple rehospitalization for worsening shortness of breath, A. fib and other complication. He has had several admissions over the past 2 months for recurrent metabolic encephalopathy with sepsis of possible aspiration pneumonia and urinary tract infection. He has been followed by Dr. Nicholas, Dr. Louis. Thought changes were possibly related to narcotic use. On recent admission in July patient did require intubation. He is currently residing at [facility] on the care of Dr. Blackman and most recent discharge was on September 05. Patient was brought in by EMS on September 14 to the emergency center due to mental status changes. Patient was treated with increased Lasix and return to the residential for CHF exacerbation. His vital signs were stable at that time , BUN 36 creatinine 2.08, normal white count. Troponin was negative. Patient return to [facility] emergency center on September 15 due to pulse ox of 80s, generalized weakness and decreased level of consciousness. Patient barely was placed on oxygen by EMS and became much more alert. Temperature max is 100.2, vital signs were otherwise stable. Initial pulse ox was 89%. EKG was atrial fibrillation controlled rate with T-wave inversion in the inferior leads. Patient was admitted to the selective care unit and consult placed with cardiology and pulmonary medicine. Patient's mentation appears to be back to his baseline. He is more alert and interactive today is feeling little bit better slightly decreased shortness of breath compared to before. Patient be seen cardiology still on diuretics whether can benefit from any further testing cardiac-hardwick are not is to be determined. Also patient has passed his swallow eval despite having aspiration pneumonia being treated for. 09/18/2017: Patient is doing much better is drinking his coffee this had his breakfast earlier. His microbiology came back positive for MRSA and enterococcus, patient is seen infectious disease was switched from vancomycin to daptomycin. 09/19: Patient is clinically doing much better surprisingly his chest x-ray came back more positive for low below pneumonia with multi-patchy area in the chest, still treated for UTI and aspiration pneumonia with the same antibiotics. Patient is interacting more and his acute mental status change reverse almost back to its baseline. 09/20: Patient has been followed by phone or medicine and cardiology. Cardiology has signed off and following as needed only. Dr. Louis is following for MRSA bacteremia likely urinary tract infection is the source. Grullon catheter has been exchanged. Plan is for patient to be on daptomycin for 2 weeks. Midline is to be placed today. Patient has been afebrile. Pulse ox 95 % on 6 L nasal cannula. Today, BUN 46, creatinine 2.94 potassium 5.4. Hemoglobin is stable at 8.9. Other electrolytes within normal limits and liver function tests within normal limits. Patient was started on Solu-Medrol 60 mg every 6 hours bipolar medicine yesterday. Blood sugars are running in the 200s.Solu-Medrol will be decreased to 40 mg every 8 hours. We'll plan for discharge tomorrow. 09/21: Pulse ox is 97% on 3 L nasal cannula. Renal function is worsening with BUN 61 and creatinine 3.65, hemoglobin 8.2. Plan is for renal function to be monitored at the residential. Patient denies any difficulty breathing. Patient is drowsy but answers questions appropriately and denies any new complaints. He denies any abdominal pain. No nausea or vomiting. Grullon catheter remains in place. Plan was for patient to be discharged to [facility] but insurance authorization was still pending. 09/22: Insurance authorization has been obtained but discharge is being held as patient's renal function has continued to climb and he is at a BUN of 75 and creatinine 3.99. Consult added for Dr. Mcbride. Lasix has been discontinued and patient started on IV fluids 0.9 normal saline at 75 mL per hour. Solu- Medrol will be decreased to 40 mg every 12 hours. Blood sugars have been running high for which Levemir 10 units daily added. Patient states that he is not feeling good today. He is not eating or drinking very much. He does have Glucerna. He states he has no appetite. 09/23: Patient sitting up in bed is feeling better today he denies any chest pain , is less short of breath, he continues to have Grullon catheter in place, we will postpone his discharge until Tuesday due to his acute kidney injury. 09/24: Total: Patient wanted to get up from bed, however he is recently , otherwise is comfortable, patient pulled out th midline last night, this would be reinserted for new midline and ordered for Tuesday, completed IV antibiotics daptomycin for MRSA bacteremia until October 02 by infectious disease, creatinine remains to be elevated at 4.7, and admitting creatinine of 2.5. With catheter draining clear, Grullon catheter remaining clear urine nephrology following., 09/25: Patient is comfortable today, however creatinine reached be high at 4.5 bun at 99. hyperkalemia 5.5 kayexelate 15 mg x 1 dose weekly Solu-Medrol and discontinue IV, oral prednisone 40the morning, midline IV access anticipated to be performed in the morning 09/26 creatinine remains higher with worsening of BUN, nephrology discussed hemodialysis, patient cannot make his own well-informed medical decision, KAIA is the youngest son, and I've spoken to him to make the final decision to assist with the father, and family members as well. The patient himself when inquired, does not want to be on dialysis, he wants his youngest son to assist, he would await family decision with KAIA next of kin [place] for final recommendation 09/27: Family undecided yet regarding renal replacement therapy, patient cannot fully understand the consequences and the indication for renal replacement therapy, patient states that if he could avoid it he would not go for dialysis however he also wants things that are for him.daughter at bedside, Chintan, updated regards to outcome,patient still remains severely azotemiaBUN of 105 creatinine 4.75 potassium 4.8 09/28: Patient and son wish to pursue hemodialysis. Dr. Cabello consult and patient will be transferred to ICU to do catheter placement and start dialysis. Dr. Tang to be updated. BUN is 104 and creatinine 4.41. Blood sugars are running in the 200s and 300s. Levemir dose increased. 09/29: Patient had dialysis catheter placement on the right from oral with Dr. Cabello and patient was transferred into the intensive care unit. He has been hemodynamically stable. Dr. Mcbride has ordered hemodialysis today and will be determined on a day-to-day basis. BUN is 106 and creatinine 4.1. Blood sugars remain elevated secondary to steroids. He is currently on prednisone 40 mg daily. Lantus was increased to 12 units yesterday. Cardiology has reduced the dose of Lopressor with parameters with dialysis. Patient will be transferred to [facility] floor later today. Patient's mental status is alert and oriented today. Patient has been asking for items that on his diet and stating that he only has 6 months to live to his nurse. 09/30: Repeat BUN 79 and creatinine 3.17 after dialysis yesterday. Hemoglobin is 8.7. Awaiting determination from nephrology and patient will be re-dialyzed today and if he will need long-term at the residential. At this time, we are [facility] Patient continued to be confused at baseline mental status, tolerating diet, urine output continued to be at baseline. He to 40 mL/h and his Grullon catheter bag, patient seems to be comfortable in no acute distress and denying pain. 10/01: Patient continued to be confused at baseline mental status, tolerating diet , urine output continued to be at baseline. He to 40 mL/h and his Grullon catheter bag, patient seems to be comfortable in no acute distress and denying pain 10/02: Patient continued to be confused at baseline mental status, tolerating diet, urine output continued to be at baseline around 40 mL/h and his Grullon catheter bag, patient seems to be comfortable in no acute distress and denying pain. 10/03: Patient was given Lasix 100 mg IV yesterday. He is scheduled for hemodialysis of 3 L today. Awaiting determination from nephrology whether patient will be long-term dialysis and a chair time for him prior to discharge back to [facility]. Grullon catheter remains in place. No new complaints. 10/04: Nephrology is planning to continue hemodialysis and a later date this may be discontinued as an outpatient. Sodium bicarb has been discontinued. Dr. Louis has discontinued daptomycin as patient has completed his course of IV antibiotics for MRSA bacteremia. We are currently awaiting authorization from his insurance for dialysis and also for subacute rehab. Patient was given Lasix 40 mg this morning. Repeat chest x-ray ordered. Objective - Vital Signs Vital signs: Vital Signs Temp 97.8 F 10/04/17 05:00 Pulse 72 10/04/17 08:45 Resp 17 10/04/17 08:45 BP 154/83 10/04/17 05:00 Pulse Ox 93 L 10/04/17 05:00 Intake & Output 10/03/17 10/04/17 10/04/17 18:59 06:59 18:59 Intake Total 860 1200 Output Total 853 601 901 Balance 7 599 -901 Weight 82.2 kg 82.2 kg Intake: IV 50 DAPTOmycin 400 mg In 50 Sodium Chloride 0.9% 50 ml @ 100 mls/hr IVPB Q[facility] Rx#:[id number] Oral 810 1200 Output: Urine 850 600 900 Uretheral (Grullon) 600 300 Stool 3 1 1 Other: Voiding Method Indwelling Catheter Indwelling Catheter Indwelling Catheter # Voids 1 # Bowel Movements 3 - Exam General appearance: Present: cooperative, disheveled, no acute distress. Absent : average body habitus, mild distress, morbidly obese, obese, severe distress, thin - EENT Eyes: Present: normal appearance. Absent: abnormal pupil, anicteric sclerae, disc margins sharp, edentulous, EOMI, PERRLA, fundus normal, photophobia, dentition normal, poor dentition, ptosis, scleral icterus ENT: Present: hard of hearing, pharyngeal erythema. Absent: hearing grossly normal, NA/AT, normal oropharynx, other, thrush, tonsillar exudates, tonsillar swelling Ears: bilateral: normal - Neck Neck: Present: normal ROM. Absent: lymphadenopathy, other, rigidity, stridor, thyromegaly Carotids: bilateral: upstroke normal, upstroke delayed Thyroid: bilateral: normal size - Respiratory Respiratory: bilateral: CTA, diminished, dullness, rales, rhonchi - Cardiovascular Rhythm: regular Heart sounds: normal: S1, S2 Abnormal Heart Sounds: Present: systolic murmur, S3 Gallop - Gastrointestinal General gastrointestinal: Present: decreased bowel sounds, distended, normal bowel sounds, soft. Absent: absent bowel sounds, hepatomegaly, hyperactive bowel sounds, organomegaly, rigid, scaphoid, splenomegaly, tenderness, umbilical hernia, ventral hernia - Integumentary Integumentary: Present: normal, pale, rash. Absent: calor, cellulitis, cyanotic , decreased turgor, flushed, jaundiced, normal turgor, ulcer - Neurologic Neurologic: Present: CNII-XII intact - Musculoskeletal Musculoskeletal: Present: generalized weakness, strength equal bilaterally. Absent: gait normal, right sided weakness, left sided weakness - Psychiatric Psychiatric: A&O x's 2, appropriate affect, no intact judgment & insight - Labs CBC & Chem 7: 10/05/17 07:14 10/04/17 10:16 Labs: Abnormal Lab Results - Last 24 Hours (Table) 10/03/17 10/03/17 10/03/17 Range/Units 11:52 17:13 20:10 POC Glucose (mg/dL) 107 H 130 H 196 H (75-99) mg/dL 10/04/17 Range/Units 08:09 POC Glucose (mg/dL) 183 H (75-99) mg/dL Assessment and Plan Plan: 1. Acute hypoxic respiratory failure secondary to bilateral pleural effusions with bibasilar atelectasis due to acute on chronic diastolic heart failure. Pulmonary medicine has ruled out pneumonia. Repeat chest x-ray. Lasix 40 mg IV push this morning. 2. Hypoxia encephalopathy most likely secondary to low pulse ox. Patient's mentation improved with oxygen therapy. Continue as in #1., Has improved from the last 48 hours. 3. Pneumonia ruled out by pulmonary medicine. 4. Acute kidney injury with CKD stage III with recent acute failure secondary to ATN secondary to sepsis. Consult with Dr. Mcbride is appreciated. Continue sodium bicarb 650 mg twice daily. Dialysis catheter placed by Dr. Cabello. Patient on dialysis treatment. 5. Arrhythmia history with prior Nonsustained ventricular tachycardia on 2015 H and was seen by cardiology echocardiogramJuly 2016 showed atrial fibrillation with small pericardial effusion noted ejection fraction 45-50% inferolateral hypokinesis with palpation of LA size over 40. 6. Grullon catheter associated MRSA urinary tract infection and bacteremia with sepsis Dr. Louis recommends daptomycin. Course will be completed on October 02. 7. CAD post CABG. continue aspirin 81 mg orally once every day, Lipitor 40 mg daily, Lopressor. 8. Diabetes mellitus type II with hyperglycemia secondary to steroids: Levemir has been added. Continue with NovoLog sliding scale. Patient has been off scheduled insulin due to hypoglycemia. 9. Hypertensive cardiovascular disease. Continue amlodipine 5 mg twice daily, hydralazine 100 mg 3 times daily, lisinopril 5 mg daily, lopressor 12.5 mg twice daily. 10. Hyperlipidemia: Continue statin. 11. Chronic A. fib. Patient is no longer on Coumadin. This may be related to risk of falls. 12. Recurrent depression: Continue Paxil. 13. Seizure history: Has been on Keppra 750 g twice a day with no new seizure activity. 14. Urinary retention with BPH: Patient has chronic Grullon catheter. Continue Flomax. 15. Severe GERD: Will add Protonix 40 mg daily 16. Severe protein calorie malnutrition due to lack of oral intake. Protein supplement. 17. Chronic low back pain. No change. [place] [facility] and plan of care have been directed as dictated by the signing physician. Carly Greene nurse practitioner acting as scribe for signing physician.
[2017-10-05] MEDS ORDERED: predniSONE 10 MG TAB PO SCH (09:00)
[2017-10-05] MEDS: FUROSEMIDE 40 MG TAB PO SCH (11:08)
[2017-10-05 11:18] LABS: Glucose,Whole Blood 234 mg/dL (75-99)
--- NOTE | 2017-10-05 13:34 | P.PN ---
Subjective Progress Note Date: 10/05/17 This is a 71-year-old male one of Dr. Lucas Gallo's patient with past medical history of hypertension, hyperlipidemia, diabetes, COPD, chronic systolic and possible diastolic heart failure, alcoholism, coronary artery disease and underwent CABG 2015 ended up having multiple complications and the multiple rehospitalization for worsening shortness of breath, A. fib and other complication. He has had several admissions over the past 2 months for recurrent metabolic encephalopathy with sepsis of possible aspiration pneumonia and urinary tract infection. He has been followed by Dr. Nicholas, Dr. Louis. Thought changes were possibly related to narcotic use. On recent admission in July patient did require intubation. He is currently residing at [facility] on the care of Dr. Blackman and most recent discharge was on September 05. Patient was brought in by EMS on September 14 to the emergency center due to mental status changes. Patient was treated with increased Lasix and return to the snf for CHF exacerbation. His vital signs were stable at that time , BUN 36 creatinine 2.08, normal white count. Troponin was negative. Patient return to [facility] emergency center on September 15 due to pulse ox of 80s, generalized weakness and decreased level of consciousness. Patient barely was placed on oxygen by EMS and became much more alert. Temperature max is 100.2, vital signs were otherwise stable. Initial pulse ox was 89%. EKG was atrial fibrillation controlled rate with T-wave inversion in the inferior leads. Patient was admitted to the selective care unit and consult placed with cardiology and pulmonary medicine. Patient's mentation appears to be back to his baseline. He is more alert and interactive today is feeling little bit better slightly decreased shortness of breath compared to before. Patient be seen cardiology still on diuretics whether can benefit from any further testing cardiac-hardwick are not is to be determined. Also patient has passed his swallow eval despite having aspiration pneumonia being treated for. 09/18/2017: Patient is doing much better is drinking his coffee this had his breakfast earlier. His microbiology came back positive for MRSA and enterococcus, patient is seen infectious disease was switched from vancomycin to daptomycin. 09/19: Patient is clinically doing much better surprisingly his chest x-ray came back more positive for low below pneumonia with multi-patchy area in the chest, still treated for UTI and aspiration pneumonia with the same antibiotics. Patient is interacting more and his acute mental status change reverse almost back to its baseline. 09/20: Patient has been followed by phone or medicine and cardiology. Cardiology has signed off and following as needed only. Dr. Louis is following for MRSA bacteremia likely urinary tract infection is the source. Grullon catheter has been exchanged. Plan is for patient to be on daptomycin for 2 weeks. Midline is to be placed today. Patient has been afebrile. Pulse ox 95 % on 6 L nasal cannula. Today, BUN 46, creatinine 2.94 potassium 5.4. Hemoglobin is stable at 8.9. Other electrolytes within normal limits and liver function tests within normal limits. Patient was started on Solu-Medrol 60 mg every 6 hours bipolar medicine yesterday. Blood sugars are running in the 200s.Solu-Medrol will be decreased to 40 mg every 8 hours. We'll plan for discharge tomorrow. 09/21: Pulse ox is 97% on 3 L nasal cannula. Renal function is worsening with BUN 61 and creatinine 3.65, hemoglobin 8.2. Plan is for renal function to be monitored at the snf. Patient denies any difficulty breathing. Patient is drowsy but answers questions appropriately and denies any new complaints. He denies any abdominal pain. No nausea or vomiting. Grullon catheter remains in place. Plan was for patient to be [facility] to [facility] but insurance authorization was still pending. 09/22: Insurance authorization has been obtained but discharge is being held as patient's renal function has continued to climb and he is at a BUN of 75 and creatinine 3.99. Consult added for Dr. Mcbride. Lasix has been discontinued and patient started on IV fluids 0.9 normal saline at 75 mL per hour. Solu- Medrol will be decreased to 40 mg every 12 hours. Blood sugars have been running high for which Levemir 10 units daily added. Patient states that he is not feeling good today. He is not eating or drinking very much. He does have Glucerna. He states he has no appetite. 09/23: Patient sitting up in bed is feeling better today he denies any chest pain , is less short of breath, he continues to have Grullon catheter in place, we will postpone his discharge until Tuesday due to his acute kidney injury. 09/24: Total: Patient wanted to get up from bed, however he is recently , otherwise is comfortable, patient pulled out th midline last night, this would be reinserted for new midline and ordered for Tuesday, completed IV antibiotics daptomycin for MRSA bacteremia until October 02 by infectious disease, creatinine remains to be elevated at 4.7, and admitting creatinine of 2.5. With catheter draining clear, Grullon catheter remaining clear urine nephrology following., 09/25: Patient is comfortable today, however creatinine reached be high at 4.5 bun at 99. hyperkalemia 5.5 kayexelate 15 mg x 1 dose weekly Solu-Medrol and discontinue IV, oral prednisone 40the morning, midline IV access anticipated to be performed in the morning 09/26 creatinine remains higher with worsening of BUN, nephrology discussed hemodialysis, patient cannot make his own well-informed medical decision, KAIA is the youngest son, and I've spoken to him to make the final decision to assist with the father, and family members as well. The patient himself when inquired, does not want to be on dialysis, he wants his youngest son to assist, he would await family decision with KAIA next of kin [place] for final recommendation 09/27: Family undecided yet regarding renal replacement therapy, patient cannot fully understand the consequences and the indication for renal replacement therapy, patient states that if he could avoid it he would not go for dialysis however he also wants things that are for him.daughter at bedside, Chintan, updated regards to outcome,patient still remains severely azotemiaBUN of 105 creatinine 4.75 potassium 4.8 09/28: Patient and son wish to pursue hemodialysis. Dr. Cabello consult and patient will be transferred to ICU to do catheter placement and start dialysis. Dr. Tang to be updated. BUN is 104 and creatinine 4.41. Blood sugars are running in the 200s and 300s. Levemir dose increased. 09/29: Patient had dialysis catheter placement on the right from oral with Dr. Cabello and patient was transferred into the intensive care unit. He has been hemodynamically stable. Dr. Mcbride has ordered hemodialysis today and will be determined on a day-to-day basis. BUN is 106 and creatinine 4.1. Blood sugars remain elevated secondary to steroids. He is currently on prednisone 40 mg daily. Lantus was increased to 12 units yesterday. Cardiology has reduced the dose of Lopressor with parameters with dialysis. Patient will be transferred to the [facility] floor later today. Patient's mental status is alert and oriented today. Patient has been asking for items that on his diet and stating that he only has 6 months to live to his nurse. 09/30: Repeat BUN 79 and creatinine 3.17 after dialysis yesterday. Hemoglobin is 8.7. Awaiting determination from nephrology and patient will be re-dialyzed today and if he will need long-term at the snf. At this time, we are anticipate discharge back to [facility] on Tuesday. Patient continued to be confused at baseline mental status, tolerating diet, urine output continued to be at baseline. He to 40 mL/h and his Grullon catheter bag, patient seems to be comfortable in no acute distress and denying pain. 10/01: Patient continued to be confused at baseline mental status, tolerating diet , urine output continued to be at baseline. He to 40 mL/h and his Grullon catheter bag, patient seems to be comfortable in no acute distress and denying pain 10/02: Patient continued to be confused at baseline mental status, tolerating diet, urine output continued to be at baseline around 40 mL/h and his Grullon catheter bag, patient seems to be comfortable in no acute distress and denying pain. 10/03: Patient was given Lasix 100 mg IV yesterday. He is scheduled for hemodialysis of 3 L today. Awaiting determination from nephrology whether patient will be long-term dialysis and a chair time for him prior to discharge back to [facility]. Grullon catheter remains in place. No new complaints. 10/04: Nephrology is planning to continue hemodialysis and a later date this may be discontinued as an outpatient. Sodium bicarb has been discontinued. Dr. Louis has discontinued daptomycin as patient has completed his course of IV antibiotics for MRSA bacteremia. We are currently awaiting authorization from his insurance for dialysis and also for subacute rehab. Patient was given Lasix 40 mg this morning. Repeat chest x-ray ordered. 10/05: Patient will be placed on Lasix 40 mg orally every day. He is tentatively set up for hemodialysis on Tuesday. Dr. Tang will look at lab work in the morning and determine if patient will need ongoing hemodialysis. If he does not, patient will be discharged tomorrow morning. Otherwise, patient will need permanent dialysis catheter placed by Dr. Cabello. If this is necessary, patient most likely will have dialysis catheter placed on Tuesday and plan for discharge to ECF on Tuesday following dialysis. Objective - Vital Signs Vital signs: Vital Signs Temp 97.7 F 10/05/17 06:09 Pulse 64 10/05/17 07:32 Resp 15 10/05/17 06:09 BP 155/79 10/05/17 06:09 Pulse Ox 91 L 10/05/17 06:09 Intake & Output 10/04/17 10/05/17 10/05/17 18:59 06:59 18:59 Intake Total 360 100 Output Total 1252 450 Balance -892 -350 Weight 82.2 kg 82.1 kg Intake: Oral 360 100 Output: Urine 1250 450 Uretheral (Grullon) 300 Stool 2 Other: Voiding Method Indwelling Catheter Indwelling Catheter - Exam General appearance: Present: cooperative, disheveled, no acute distress. Absent : average body habitus, mild distress, morbidly obese, obese, severe distress, thin - EENT Eyes: Present: normal appearance. Absent: abnormal pupil, anicteric sclerae, disc margins sharp, edentulous, EOMI, PERRLA, fundus normal, photophobia, dentition normal, poor dentition, ptosis, scleral icterus ENT: Present: hard of hearing, pharyngeal erythema. Absent: hearing grossly normal, NA/AT, normal oropharynx, other, thrush, tonsillar exudates, tonsillar swelling Ears: bilateral: normal - Neck Neck: Present: normal ROM. Absent: lymphadenopathy, other, rigidity, stridor, thyromegaly Carotids: bilateral: upstroke normal, upstroke delayed Thyroid: bilateral: normal size - Respiratory Respiratory: bilateral: CTA, diminished, dullness, rales, rhonchi - Cardiovascular Rhythm: regular Heart sounds: normal: S1, S2 Abnormal Heart Sounds: Present: systolic murmur, S3 Gallop - Gastrointestinal General gastrointestinal: Present: decreased bowel sounds, distended, normal bowel sounds, soft. Absent: absent bowel sounds, hepatomegaly, hyperactive bowel sounds, organomegaly, rigid, scaphoid, splenomegaly, tenderness, umbilical hernia, ventral hernia - Integumentary Integumentary: Present: normal, pale, rash. Absent: calor, cellulitis, cyanotic , decreased turgor, flushed, jaundiced, normal turgor, ulcer - Neurologic Neurologic: Present: CNII-XII intact - Musculoskeletal Musculoskeletal: Present: generalized weakness, strength equal bilaterally. Absent: gait normal, right sided weakness, left sided weakness - Psychiatric Psychiatric: A&O x's 2, appropriate affect, no intact judgment & insight - Labs CBC & Chem 7: 10/05/17 07:14 10/05/17 07:14 Labs: Abnormal Lab Results - Last 24 Hours (Table) 10/04/17 10/04/17 10/04/17 Range/Units 10:16 10:16 12:55 WBC 17.8 H (3.8-10.6) k/uL RBC 2.93 L (4.30-5.90) m/uL Hgb 8.4 L (13.0-17.5) gm/dL Hct 26.3 L (39.0-53.0) % RDW 18.2 H (11.5-15.5) % Plt Count 141 L (150-450) k/uL BUN 56 H (9-20) mg/dL Creatinine 2.27 H (0.66-1.25) mg/dL Glucose 136 H (74-99) mg/dL POC Glucose (mg/dL) 118 H (75-99) mg/dL Calcium 7.9 L (8.4-10.2) mg/dL Urine Protein (Negative) Urine Blood (Negative) Ur Leukocyte Esterase (Negative) Urine RBC (0-5) /hpf Urine WBC (0-5) /hpf Urine WBC Clumps (None) /hpf Ur Squamous Epith Cells (0-4) /hpf Amorphous Sediment (None) /hpf Hyaline Casts (0-2) /lpf 10/04/17 10/04/17 10/04/17 Range/Units 17:14 20:38 Unknown WBC (3.8-10.6) k/uL RBC (4.30-5.90) m/uL Hgb (13.0-17.5) gm/dL Hct (39.0-53.0) % RDW (11.5-15.5) % Plt Count (150-450) k/uL BUN (9-20) mg/dL Creatinine (0.66-1.25) mg/dL Glucose (74-99) mg/dL POC Glucose (mg/dL) 103 H 114 H (75-99) mg/dL Calcium (8.4-10.2) mg/dL Urine Protein 2+ H (Negative) Urine Blood Small H (Negative) Ur Leukocyte Esterase Large H (Negative) Urine RBC 15 H (0-5) /hpf Urine WBC 11 H (0-5) /hpf Urine WBC Clumps Occasional H (None) /hpf Ur Squamous Epith Cells 5 H (0-4) /hpf Amorphous Sediment Rare H (None) /hpf Hyaline Casts 3 H (0-2) /lpf 10/05/17 10/05/17 10/05/17 Range/Units 07:07 07:14 07:14 WBC 12.3 H (3.8-10.6) k/uL RBC 2.80 L (4.30-5.90) m/uL Hgb 8.0 L (13.0-17.5) gm/dL Hct 25.2 L (39.0-53.0) % RDW 17.9 H (11.5-15.5) % Plt Count (150-450) k/uL BUN 61 H (9-20) mg/dL Creatinine 2.57 H (0.66-1.25) mg/dL Glucose 168 H (74-99) mg/dL POC Glucose (mg/dL) 184 H (75-99) mg/dL Calcium 7.8 L (8.4-10.2) mg/dL Urine Protein (Negative) Urine Blood (Negative) Ur Leukocyte Esterase (Negative) Urine RBC (0-5) /hpf Urine WBC (0-5) /hpf Urine WBC Clumps (None) /hpf Ur Squamous Epith Cells (0-4) /hpf Amorphous Sediment (None) /hpf Hyaline Casts (0-2) /lpf Microbiology - Last 24 Hours (Table) 10/04/17 Unknown Urine Culture - Preliminary Urine,Catheterized Assessment and Plan Plan: 1. Acute hypoxic respiratory failure secondary to bilateral pleural effusions with bibasilar atelectasis due to acute on chronic diastolic heart failure. Pulmonary medicine has ruled out pneumonia. Repeat chest x-ray. Lasix 40 mg orally daily. 2. Hypoxia encephalopathy most likely secondary to low pulse ox. Patient's mentation improved with oxygen therapy. Continue as in #1., Has improved from the last 48 hours. 3. Pneumonia ruled out by pulmonary medicine. 4. Acute kidney injury with CKD stage III with recent acute failure secondary to ATN secondary to sepsis. Consult with Dr. Mcbride is appreciated. Continue sodium bicarb 650 mg twice daily. Dialysis catheter placed by Dr. Cabello. Patient on dialysis treatment. Permanent dialysis to be determined by Dr. Tang. 5. Arrhythmia history with prior Nonsustained ventricular tachycardia on 2015 H and was seen by cardiology echocardiogramJuly 2015 showed atrial fibrillation with small pericardial effusion noted ejection fraction 45-50% inferolateral hypokinesis with palpation of LA size over 40. 6. Grullon catheter associated MRSA urinary tract infection and bacteremia with sepsis Dr. Louis recommends daptomycin. Course will be completed on October 02. 7. CAD post CABG. continue aspirin 81 mg orally once every day, Lipitor 40 mg daily, Lopressor. 8. Diabetes mellitus type II with hyperglycemia secondary to steroids: Levemir has been added. Continue with NovoLog sliding scale. Patient has been off scheduled insulin due to hypoglycemia. 9. Hypertensive cardiovascular disease. Continue amlodipine 5 mg twice daily, hydralazine 100 mg 3 times daily, lisinopril 5 mg daily, lopressor 12.5 mg twice daily. 10. Hyperlipidemia: Continue statin. 11. Chronic A. fib. Patient is no longer on Coumadin. This may be related to risk of falls. 12. Recurrent depression: Continue Paxil. 13. Seizure history: Has been on Keppra 750 g twice a day with no new seizure activity. 14. Urinary retention with BPH: Patient has chronic Grullon catheter. Continue Flomax. 15. Severe GERD: Will add Protonix 40 mg daily 16. Severe protein calorie malnutrition due to lack of oral intake. Protein supplement. 17. Chronic low back pain. No change. Patient is off [place] Discharge plan: [facility] on or Tuesday Impression and plan of care have been directed as dictated by the signing physician. Carly Greene nurse practitioner acting as scribe for signing physician.
--- NOTE | 2017-10-05 16:23 | PN ---
PROGRESS NOTE The patient is seen for followup for acute kidney injury. He has had 2 treatments of hemodialysis. I held his treatment yesterday. The patient has had a urine output of about 1.7 L. He is not communicating much. Patient has not been eating, according to the nursing staff. EXAMINATION: This morning, blood pressure was 165/79, heart rate 60 per minute. He is afebrile. HEART: S1, S2. LUNGS: Bilateral breath sounds are heard. Abdomen is soft, nontender. Lower extremities show no evidence of edema. 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 The patient seems to be moving all 4 extremities. LAB: Show sodium 142, potassium 3.8, BUN 61, serum creatinine 2.57. UA shows WBCs 11, with 2+ protein, hyaline casts noted. ASSESSMENT: 1. Acute kidney injury, acute tubular necrosis secondary to sepsis, status post 2 treatments of hemodialysis. The patient has good urine output now. His serum creatinine is about 2.5 from 2.2 yesterday. I will continue to hold off on dialysis and repeat labs in a.m. If his creatinine is higher, we will proceed with continuation of dialysis. However, patient will need an internal jugular PermCath placed before he can be discharged. 2. Methicillin-resistant Staphylococcus aureus urinary tract infection and bacteremia, status post daptomycin. 3. Altered mentation/encephalopathy. 4. History of nonsustained ventricular tachycardia with a history of atrial fibrillation. 5. Cardiomyopathy, ejection fraction 45%-50%. PLAN: Repeat labs in a.m. Hold dialysis today. If the patient needs to continue with dialysis based on labs tomorrow, he will need an IJ PermCath placed prior to discharge. He is set up at the [facility] in case he needs to continue with outpatient dialysis. MMODL / IJN: [id number] /
[2017-10-05 17:13] LABS: Glucose,Whole Blood 311 mg/dL (75-99)
--- NOTE | 2017-10-05 17:38 | PN ---
PROGRESS NOTE DATE OF SERVICE: 10/05/2017 REASON FOR FOLLOWUP: 1. MRSA UTI and bacteremia, adequately treated. 2. Patient with a jump in the white count yesterday, possibly secondary to catheter- associated UTI. INTERVAL HISTORY: The patient is currently afebrile. He remains lethargic and weak, unable to provide a reliable history. His Grullon catheter was changed yesterday. No diarrhea reported. PHYSICAL EXAMINATION: Blood pressure 158/70 with a pulse of 60, temperature 97.9. He is 97% on 2 L nasal cannula. General description is an elderly male lying in bed in no distress. RESPIRATORY SYSTEM: Unlabored breathing. Clear to auscultation anteriorly. HEART: S1, S2. Regular rate and rhythm. ABDOMEN: Soft. No tenderness. LABS: Hemoglobin 8 with white count of 12.3, BUN of 61, creatinine 2.57. DIAGNOSTIC IMPRESSION AND PLAN: 1. Patient with methicillin-resistant Staphylococcus aeruginosa bacteremia secondary to urinary source that has been adequately treated. 2. Patient who did have a jump in white count yesterday, more likely related to his current Grullon catheter. That was changed and he was started on Diflucan, with the white count coming down to 12,000. That will be continued, monitoring his clinical course closely. Continue with supportive care. MMODL / IJN: [id number] /
[2017-10-05 20:09] LABS: Glucose,Whole Blood 303 mg/dL (75-99)
[2017-10-05] MEDS: MULTIVITAMINS, THERA 1 EACH TAB PO SCH (22:13)
[2017-10-05] MEDS: MONTELUKAST 10 MG TAB PO SCH (22:13)
[2017-10-06 07:09] LABS: Glucose,Whole Blood 158 mg/dL (75-99)
[2017-10-06] MEDS: IPRATROPIUM-ALBUTEROL 3 ML NEB INHALATION SCH ×4 (07:25→19:37)
[2017-10-06] MEDS: BUDESONIDE 1 MG/2 ML NEBU INHALATION SCH ×2 (07:25→19:38)
[2017-10-06] MEDS: FORMOTEROL FUMARATE 20 MCG/2 ML NEBU INHALATION SCH ×2 (07:25→19:37)
[2017-10-06] MEDS: HEPARIN SODIUM,PORCINE 5,000 UNIT/ML 1 ML VIAL SQ SCH ×3 (07:46→23:40)
[2017-10-06] MEDS: hydrALAZINE HCL 25 MG TAB PO SCH ×3 (07:47→15:56)
[2017-10-06] MEDS: PANTOPRAZOLE 40 MG TABLET PO SCH (07:47)
[2017-10-06] MEDS: TAMSULOSIN 0.4 MG CAP.ER.24H PO SCH ×2 (07:47→21:15)
[2017-10-06] MEDS: FLUCONAZOLE 100 MG TAB PO SCH (07:47)
[2017-10-06] MEDS: METOPROLOL TARTRATE 12.5 MG TAB PO SCH ×2 (07:47→21:15)
[2017-10-06] MEDS: FUROSEMIDE 40 MG TAB PO SCH (07:48)
[2017-10-06] MEDS: PARoxetine 10 MG TAB PO SCH (07:48)
[2017-10-06] MEDS: ISOSORBIDE MONONITRATE ER 30 MG TAB.ER.24H PO SCH (07:48)
[2017-10-06] MEDS: INSULIN ASPART 100 UNIT/ML 1 ML 10 ML VIAL SQ SCH ×4 (07:53→21:15)
[2017-10-06] MEDS: NYSTATIN 100,000UNIT/GM CREAM 30 GM TUBE TOPICAL SCH (07:59)
[2017-10-06] MEDS: TRIAMCINOLONE 0.1% CREAM 80 GM TUBE TOPICAL SCH (07:59)
[2017-10-06 08:56] LABS: Anisocytosis Slight; Basophils % (A) 0 %; Eosinophils # (A) 0.1 k/uL (0-0.7); Eosinophils % (A) 0 %; HCT 27.3 % (39.0-53.0); HGB 8.6 gm/dL (13.0-17.5); Hypochromasia Slight; Lymphocytes # (A) 0.9 k/uL (1.0-4.8); Lymphocytes % (A) 8 %; MCH 28.8 pg (25.0-35.0); MCHC 31.5 g/dL (31.0-37.0); MCV 91.4 fL (80.0-100.0); Mean Platelet Volume 7.8; Monocytes # (A) 0.6 k/uL (0-1.0); Monocytes % (A) 5 %; Neutrophils # (A) 9.6 k/uL (1.3-7.7); Neutrophils % (A) 85 %; Platelet Count 146 k/uL (150-450); RBC 2.98 m/uL (4.30-5.90); RDW 18.2 % (11.5-15.5); WBC 11.3 k/uL (3.8-10.6)
[2017-10-06 09:21] LABS: Albumin 2.5 g/dL (3.5-5.0); Potassium 3.8 mmol/L (3.5-5.1); Total Bilirubin 0.5 mg/dL (0.2-1.3); Total Protein 5.4 g/dL (6.3-8.2)
[2017-10-06] MEDS: SODIUM CHLORIDE 0.9% 1,000 ML IV SCH (11:49)
[2017-10-06 12:07] LABS: Glucose,Whole Blood 168 mg/dL (75-99)
--- NOTE | 2017-10-06 13:43 | P.PN ---
Subjective Progress Note Date: 10/06/17 This is a 71-year-old male one of Dr. Lucas Gallo's patient with past medical history of hypertension, hyperlipidemia, diabetes, COPD, chronic systolic and possible diastolic heart failure, alcoholism, coronary artery disease and underwent CABG 2015 ended up having multiple complications and the multiple rehospitalization for worsening shortness of breath, A. fib and other complication. He has had several admissions over the past 2 months for recurrent metabolic encephalopathy with sepsis of possible aspiration pneumonia and urinary tract infection. He has been followed by Dr. Nicholas, Dr. Louis. Thought changes were possibly related to narcotic use. On recent admission in July patient did require intubation. He is currently residing at [facility] on the care of Dr. Blackman and most recent discharge was on September 05. Patient was brought in by EMS on September 14 to the emergency center due to mental status changes. Patient was treated with increased Lasix and return to the [facility] for CHF exacerbation. His vital signs were stable at that time , BUN 36 creatinine 2.08, normal white count. Troponin was negative. Patient return to [facility] emergency center on September 15 due to pulse ox of 80s, generalized weakness and decreased level of consciousness. Patient barely was placed on oxygen by EMS and became much more alert. Temperature max is 100.2, vital signs were otherwise stable. Initial pulse ox was 89%. EKG was atrial fibrillation controlled rate with T-wave inversion in the inferior leads. Patient was admitted to the selective care unit and consult placed with cardiology and pulmonary medicine. Patient's mentation appears to be back to his baseline. He is more alert and interactive today is feeling little bit better slightly decreased shortness of breath compared to before. Patient be seen cardiology still on diuretics whether can benefit from any further testing cardiac-hardwick are not is to be determined. Also patient has passed his swallow eval despite having aspiration pneumonia being treated for. 09/18/2017: Patient is doing much better is drinking his coffee this had his breakfast earlier. His microbiology came back positive for MRSA and enterococcus, patient is seen infectious disease was switched from vancomycin to daptomycin. 09/19: Patient is clinically doing much better surprisingly his chest x-ray came back more positive for low below pneumonia with multi-patchy area in the chest, still treated for UTI and aspiration pneumonia with the same antibiotics. Patient is interacting more and his acute mental status change reverse almost back to its baseline. 09/20: Patient has been followed by phone or medicine and cardiology. Cardiology has signed off and following as needed only. Dr. Louis is following for MRSA bacteremia likely urinary tract infection is the source. Grullon catheter has been exchanged. Plan is for patient to be on daptomycin for 2 weeks. Midline is to be placed today. Patient has been afebrile. Pulse ox 95 % on 6 L nasal cannula. Today, BUN 46, creatinine 2.94 potassium 5.4. Hemoglobin is stable at 8.9. Other electrolytes within normal limits and liver function tests within normal limits. Patient was started on Solu-Medrol 60 mg every 6 hours bipolar medicine yesterday. Blood sugars are running in the 200s.Solu-Medrol will be decreased to 40 mg every 8 hours. We'll plan for discharge tomorrow. 09/21: Pulse ox is 97% on 3 L nasal cannula. Renal function is worsening with BUN 61 and creatinine 3.65, hemoglobin 8.2. Plan is for renal function to be monitored at the fdc. Patient denies any difficulty breathing. Patient is drowsy but answers questions appropriately and denies any new complaints. He denies any abdominal pain. No nausea or vomiting. Grullon catheter remains in place. Plan was for patient to be discharged to [facility] but insurance authorization was still pending. 09/22: Insurance authorization has been obtained but discharge is being held as patient's renal function has continued to climb and he is at a BUN of 75 and creatinine 3.99. Consult added for Dr. Mcbride. Lasix has been discontinued and patient started on IV fluids 0.9 normal saline at 75 mL per hour. Solu- Medrol will be decreased to 40 mg every 12 hours. Blood sugars have been running high for which Levemir 10 units daily added. Patient states that he is not feeling good today. He is not eating or drinking very much. He does have Glucerna. He states he has no appetite. 09/23: Patient sitting up in bed is feeling better today he denies any chest pain , is less short of breath, he continues to have Grullon catheter in place, we will postpone his discharge until Tuesday due to his acute kidney injury. 09/24: Total: Patient wanted to get up from bed, however he is recently , otherwise is comfortable, patient pulled out th midline last night, this would be reinserted for new midline and ordered for Tuesday, completed IV antibiotics daptomycin for MRSA bacteremia until October 02 by infectious disease, creatinine remains to be elevated at 4.7, and admitting creatinine of 2.5. With catheter draining clear, Grullon catheter remaining clear urine nephrology following., 09/25: Patient is comfortable today, however creatinine reached be high at 4.5 bun at 99. hyperkalemia 5.5 kayexelate 15 mg x 1 dose weekly Solu-Medrol and discontinue IV, oral prednisone 40the morning, midline IV access anticipated to be performed in the morning 09/26 creatinine remains higher with worsening of BUN, nephrology discussed hemodialysis, patient cannot make his own well-informed medical decision, KAIA is the youngest son, and I've spoken to him to make the final decision to assist with the father, and family members as well. The patient himself when inquired, does not want to be on dialysis, he wants his youngest son to assist, he would await family decision with KAIA next of kin [place] for final recommendation 09/27: Family undecided yet regarding renal replacement therapy, patient cannot fully understand the consequences and the indication for renal replacement therapy, patient states that if he could avoid it he would not go for dialysis however he also wants things that are for him.daughter at bedside, Chintan, updated regards to outcome,patient still remains severely azotemiaBUN of 105 creatinine 4.75 potassium 4.8 09/28: Patient and son wish to pursue hemodialysis. Dr. Cabello consult and patient will be transferred to ICU to do catheter placement and start dialysis. Dr. Tang to be updated. BUN is 104 and creatinine 4.41. Blood sugars are running in the 200s and 300s. Levemir dose increased. 09/29: Patient had dialysis catheter placement on the right from oral with Dr. Cabello and patient was transferred into the intensive care unit. He has been hemodynamically stable. Dr. Mcbride has ordered hemodialysis today and will be determined on a day-to-day basis. BUN is 106 and creatinine 4.1. Blood sugars remain elevated secondary to steroids. He is currently on prednisone 40 mg daily. Lantus was increased to 12 units yesterday. Cardiology has reduced the dose of Lopressor with parameters with dialysis. Patient will be transferred to the [facility] floor later today. Patient's mental status is alert and oriented today. Patient has been asking for items that on his diet and stating that he only has 6 months to live to his nurse. 09/30: Repeat BUN 79 and creatinine 3.17 after dialysis yesterday. Hemoglobin is 8.7. Awaiting determination from nephrology and patient will be re-dialyzed today and if he will need long-term at the fdc. At this time, we are anticipate discharge back to [facility] on Tuesday. Patient continued to be confused at baseline mental status, tolerating diet, urine output continued to be at baseline. He to 40 mL/h and his Grullon catheter bag, patient seems to be comfortable in no acute distress and denying pain. 10/01: Patient continued to be confused at baseline mental status, tolerating diet , urine output continued to be at baseline. He to 40 mL/h and his Grullon catheter bag, patient seems to be comfortable in no acute distress and denying pain 10/02: Patient continued to be confused at baseline mental status, tolerating diet, urine output continued to be at baseline around 40 mL/h and his Grullon catheter bag, patient seems to be comfortable in no acute distress and denying pain. 10/03: Patient was given Lasix 100 mg IV yesterday. He is scheduled for hemodialysis of 3 L today. Awaiting determination from nephrology whether patient will be long-term dialysis and a chair time for him prior to discharge back to [facility]. Grullon catheter remains in place. No new complaints. 10/04: Nephrology is planning to continue hemodialysis and a later date this may be discontinued as an outpatient. Sodium bicarb has been discontinued. Dr. Louis has discontinued daptomycin as patient has completed his course of IV antibiotics for MRSA bacteremia. We are currently awaiting authorization from his insurance for dialysis and also for subacute rehab. Patient was given Lasix 40 mg this morning. Repeat chest x-ray ordered. 10/05: Patient will be placed on Lasix 40 mg orally every day. He is tentatively set up for hemodialysis on Tuesday. Dr. Tang will look at lab work in the morning and determine if patient will need ongoing hemodialysis. If he does not, patient will be discharged tomorrow morning. Otherwise, patient will need permanent dialysis catheter placed by Dr. Cabello. If this is necessary, patient most likely will have dialysis catheter placed on Tuesday and plan for discharge to [facility] on Tuesday following dialysis. 10/06: Repeat labs showed BUN of 69 creatinine 2.69, hemoglobin 8.6 and white count 11.3. Electrolytes are within normal limits. Capillary blood glucose running anywhere between 158 and 300. We expect the patient's blood sugars will drop significantly since he is off prednisone. Levemir was discontinued yesterday and he is on NovoLog scale only. Patient will need to continue on hemodialysis. Dr. Cabello will put in a dialysis catheter either on Tuesday or Tuesday. This may delay are discharged to fdc until Tuesday. Patient's son is working on POA which needs to be in place for hemodialysis. Objective - Vital Signs Vital signs: Vital Signs Temp 97.6 F 10/06/17 05:26 Pulse 58 L 10/06/17 07:45 Resp 16 10/06/17 05:26 BP 150/72 10/06/17 05:26 Pulse Ox 99 10/06/17 07:25 Intake & Output 10/05/17 10/06/17 10/06/17 18:59 06:59 18:59 Intake Total 720 Output Total 1 500 1 Balance 719 -500 -1 Weight 75 kg Intake: Oral 720 Output: Urine 500 Uretheral (Grullon) 500 Stool 1 1 Other: Voiding Method Indwelling Catheter Indwelling Catheter Indwelling Catheter # Voids 0 - Exam General appearance: Present: cooperative, disheveled, no acute distress. Absent : average body habitus, mild distress, morbidly obese, obese, severe distress, thin - EENT Eyes: Present: normal appearance. Absent: abnormal pupil, anicteric sclerae, disc margins sharp, edentulous, EOMI, PERRLA, fundus normal, photophobia, dentition normal, poor dentition, ptosis, scleral icterus ENT: Present: hard of hearing, pharyngeal erythema. Absent: hearing grossly normal, NA/AT, normal oropharynx, other, thrush, tonsillar exudates, tonsillar swelling Ears: bilateral: normal - Neck Neck: Present: normal ROM. Absent: lymphadenopathy, other, rigidity, stridor, thyromegaly Carotids: bilateral: upstroke normal, upstroke delayed Thyroid: bilateral: normal size - Respiratory Respiratory: bilateral: CTA, diminished, dullness, rales, rhonchi - Cardiovascular Rhythm: regular Heart sounds: normal: S1, S2 Abnormal Heart Sounds: Present: systolic murmur, S3 Gallop - Gastrointestinal General gastrointestinal: Present: decreased bowel sounds, distended, normal bowel sounds, soft. Absent: absent bowel sounds, hepatomegaly, hyperactive bowel sounds, organomegaly, rigid, scaphoid, splenomegaly, tenderness, umbilical hernia, ventral hernia - Integumentary Integumentary: Present: normal, pale, rash. Absent: calor, cellulitis, cyanotic , decreased turgor, flushed, jaundiced, normal turgor, ulcer - Neurologic Neurologic: Present: CNII-XII intact - Musculoskeletal Musculoskeletal: Present: generalized weakness, strength equal bilaterally. Absent: gait normal, right sided weakness, left sided weakness - Psychiatric Psychiatric: A&O x's 2, appropriate affect, no intact judgment & insight - Labs CBC & Chem 7: 10/06/17 07:51 10/06/17 07:51 Labs: Abnormal Lab Results - Last 24 Hours (Table) 10/05/17 10/05/17 10/05/17 Range/Units 11:16 17:10 20:06 WBC (3.8-10.6) k/uL RBC (4.30-5.90) m/uL Hgb (13.0-17.5) gm/dL Hct (39.0-53.0) % RDW (11.5-15.5) % Plt Count (150-450) k/uL Neutrophils # (1.3-7.7) k/uL Lymphocytes # (1.0-4.8) k/uL BUN (9-20) mg/dL Creatinine (0.66-1.25) mg/dL Glucose (74-99) mg/dL POC Glucose (mg/dL) 234 H 311 H 303 H (75-99) mg/dL Calcium (8.4-10.2) mg/dL Total Protein (6.3-8.2) g/dL Albumin (3.5-5.0) g/dL 10/06/17 10/06/17 10/06/17 Range/Units 07:07 07:51 07:51 WBC 11.3 H (3.8-10.6) k/uL RBC 2.98 L (4.30-5.90) m/uL Hgb 8.6 L (13.0-17.5) gm/dL Hct 27.3 L (39.0-53.0) % RDW 18.2 H (11.5-15.5) % Plt Count 146 L (150-450) k/uL Neutrophils # 9.6 H (1.3-7.7) k/uL Lymphocytes # 0.9 L (1.0-4.8) k/uL BUN 69 H (9-20) mg/dL Creatinine 2.67 H (0.66-1.25) mg/dL Glucose 137 H (74-99) mg/dL POC Glucose (mg/dL) 158 H (75-99) mg/dL Calcium 8.0 L (8.4-10.2) mg/dL Total Protein 5.4 L (6.3-8.2) g/dL Albumin 2.5 L (3.5-5.0) g/dL Microbiology - Last 24 Hours (Table) 10/04/17 Unknown Urine Culture - Preliminary Urine,Catheterized Presumptive Staph aureus Group D Enterococcus Assessment and Plan Plan: 1. Acute hypoxic respiratory failure secondary to bilateral pleural effusions with bibasilar atelectasis due to acute on chronic diastolic heart failure. Pulmonary medicine has ruled out pneumonia. Repeat chest x-ray. Lasix 40 mg orally daily. 2. Hypoxia encephalopathy most likely secondary to low pulse ox. Patient's mentation improved with oxygen therapy. Continue as in #1., Has improved from the last 48 hours. 3. Pneumonia ruled out by pulmonary medicine. 4. Acute kidney injury with CKD stage III with recent acute failure secondary to ATN secondary to sepsis. Consult with Dr. Mcbride is appreciated. Continue sodium bicarb 650 mg twice daily. Dialysis catheter placed by Dr. Cabello. Patient on dialysis treatment. Permanent dialysis to be determined by Dr. Tang. Patient will need permanent dialysis catheter placed 5. Arrhythmia history with prior Nonsustained ventricular tachycardia on 2015 H and was seen by cardiology echocardiogramJuly 2016 showed atrial fibrillation with small pericardial effusion noted ejection fraction 45-50% inferolateral hypokinesis with palpation of LA size over 40. 6. Grullon catheter associated MRSA urinary tract infection and bacteremia with sepsis Dr. Louis recommends daptomycin. Course will be completed on October 02. 7. CAD post CABG. continue aspirin 81 mg orally once every day, Lipitor 40 mg daily, Lopressor. 8. Diabetes mellitus type II with hyperglycemia secondary to steroids: Levemir has been added. Continue with NovoLog sliding scale. Patient has been off scheduled insulin due to hypoglycemia. 9. Hypertensive cardiovascular disease. Continue amlodipine 5 mg twice daily, hydralazine 100 mg 3 times daily, lisinopril 5 mg daily, lopressor 12.5 mg twice daily. 10. Hyperlipidemia: Continue statin. 11. Chronic A. fib. Patient is no longer on Coumadin. This may be related to risk of falls. 12. Recurrent depression: Continue Paxil. 13. Seizure history: Has been on Keppra 750 g twice a day with no new seizure activity. 14. Urinary retention with BPH: Patient has chronic Grullon catheter. Continue Flomax. 15. Severe GERD: Will add Protonix 40 mg daily 16. Severe protein calorie malnutrition due to lack of oral intake. Protein supplement. 17. Chronic low back pain. No change. Patient is off [place] [facility] Impression and plan of care have been directed as dictated by the signing physician. Carly Greene nurse practitioner acting as scribe for signing physician.
--- NOTE | 2017-10-06 13:45 | PN ---
PROGRESS NOTE The patient is seen for followup for acute kidney injury secondary to ATN from sepsis. He did not have hemodialysis yesterday. His creatinine has increased. It is at 2.67 today. The patient is currently awake. He is comfortable. He denies any significant complaints. I have been able to communicate with him today. He is able to carry on a conversation. PHYSICAL EXAMINATION: Blood pressure this morning 150/72, heart rate 51 per minute. He is afebrile. EXAMINATION OF THE HEART: S1, S2. EXAMINATION OF THE LUNGS: Bilateral breath sounds are heard. Abdomen is soft, nontender. Examination of the lower extremities shows no significant edema. DIRECTOR OF USER EXPERIENCE exam is grossly intact. The patient is moving all 4 extremities. LABS: Labs show sodium 141, potassium 3.8, BUN 69, serum creatinine 2.7, albumin 2.5. ASSESSMENT: 1. Acute kidney injury, acute tubular necrosis currently not recovering yet. Maintain on hemodialysis. We will continue with renal replacement therapy as serum creatinine is not decreasing yet. We will continue to monitor his renal function as outpatient. We will proceed with changing the catheter to an IJ PermCath so that patient can be discharged. He currently does have chair time at [facility]. 2. Methicillin-resistant Staphylococcus aureus, sepsis and bacteremia. 3. Methicillin-resistant Staphylococcus aureus urinary tract infection and Enterococcus faecalis in the urine. 4. Encephalopathy related to sepsis and hospitalization seems to have improved. 5. Anemia of chronic disease, maintained on Aranesp. No active bleeding noted at this time. PLAN: Hemodialysis today. Will proceed with IJ PermCath placement so that the patient can be discharged and be set up for outpatient dialysis on a Tuesday, , Tuesday schedule at [facility]. MMODL / IJN: [id number] /
[2017-10-06 17:12] LABS: Glucose,Whole Blood 182 mg/dL (75-99)
[2017-10-06] MEDS ORDERED: GELATIN SPONGE,ABSORB (SMALL) 1 EACH SPONGE ONE (20:00)
[2017-10-06] MEDS ORDERED: HEPARIN SODIUM,PORCINE 5,000 UNIT/ML 1 ML VIAL ONE (20:00)
[2017-10-06 20:29] LABS: Glucose,Whole Blood 147 mg/dL (75-99)
[2017-10-06] MEDS: MULTIVITAMINS, THERA 1 EACH TAB PO SCH (21:15)
[2017-10-06] MEDS: MONTELUKAST 10 MG TAB PO SCH (21:15)
--- NOTE | 2017-10-06 23:50 | PN ---
PROGRESS NOTE DATE OF SERVICE: 10/06/2017. REASON FOR FOLLOWUP VISIT: Urinary tract infection. INTERVAL HISTORY: The patient is currently afebrile. He has been breathing comfortably. Denies chest pain or cough. No abdominal pain or any diarrhea. EXAMINATION: Blood pressure 150/71 with a pulse of 84, temperature 97. He is 99% on 2L nasal cannula. General description is an elderly male up in the bed in no distress. RESPIRATORY SYSTEM: Unlabored breathing. Clear to auscultation anteriorly. HEART: S1, S2. Regular rate and rhythm. ABDOMEN: Soft. No tenderness. LABS: Hemoglobin 8.6, white count of 11.3. BUN 69, creatinine 2.67. DIAGNOSTIC IMPRESSION AND PLAN: Patient with methicillin-resistant Staphylococcus aureus bacteremia secondary to urinary source that has been adequately treated. Patient did have jump in the white count, now with . His white count improved with addition of . Will continue to monitor his cultures. Continue supportive care. MMODL / IJN: [id number] /
[2017-10-07] MEDS: IPRATROPIUM-ALBUTEROL 3 ML NEB INHALATION SCH ×4 (07:17→19:09)
[2017-10-07] MEDS: FORMOTEROL FUMARATE 20 MCG/2 ML NEBU INHALATION SCH ×2 (07:17→19:09)
[2017-10-07] MEDS: BUDESONIDE 1 MG/2 ML NEBU INHALATION SCH ×2 (07:17→19:13)
[2017-10-07 07:40] LABS: Glucose,Whole Blood 182 mg/dL (75-99)
[2017-10-07] MEDS: INSULIN ASPART 100 UNIT/ML 1 ML 10 ML VIAL SQ SCH ×4 (08:12→22:17)
[2017-10-07] MEDS: TAMSULOSIN 0.4 MG CAP.ER.24H PO SCH ×2 (08:13→22:16)
[2017-10-07] MEDS: hydrALAZINE HCL 25 MG TAB PO SCH ×3 (08:13→17:16)
[2017-10-07] MEDS: METOPROLOL TARTRATE 12.5 MG TAB PO SCH ×2 (08:13→22:16)
[2017-10-07] MEDS: HEPARIN SODIUM,PORCINE 5,000 UNIT/ML 1 ML VIAL SQ SCH ×2 (08:13→17:16)
[2017-10-07] MEDS: FUROSEMIDE 40 MG TAB PO SCH (08:13)
[2017-10-07] MEDS: PANTOPRAZOLE 40 MG TABLET PO SCH (08:13)
[2017-10-07] MEDS: ISOSORBIDE MONONITRATE ER 30 MG TAB.ER.24H PO SCH (08:14)
[2017-10-07] MEDS: FLUCONAZOLE 100 MG TAB PO SCH (08:14)
[2017-10-07] MEDS: PARoxetine 10 MG TAB PO SCH (08:15)
[2017-10-07] MEDS: SODIUM CHLORIDE 0.9% 1,000 ML IV SCH (08:32)
[2017-10-07] MEDS: NYSTATIN 100,000UNIT/GM CREAM 30 GM TUBE TOPICAL SCH (08:32)
[2017-10-07] MEDS: TRIAMCINOLONE 0.1% CREAM 80 GM TUBE TOPICAL SCH (08:32)
[2017-10-07 09:54] LABS: Calcium 7.7 mg/dL (8.4-10.2)
--- NOTE | 2017-10-07 10:35 | P.PN ---
Subjective Patient is seen in follow for acute kidney injury currently hemodialysis dependent on a Tuesday schedule. He is scheduled to get a permacath today. He is currently being treated for MRSA bacteremia and also UTI with urine culture positive for MRSA and enterococcus. Patient denies chest pain or shortness of breath. Currently resting in bed. Appetite is fair. He is nonoliguric. Vital signs are stable. General: The patient appeared well nourished and normally developed. HEENT: Head exam is unremarkable. Neck is without jugular venous distension. LUNGS: Lungs are clear to auscultation and percussion. Breath sounds decreased. HEART: Rate and Rhythm are regular. First and second heart sounds normal. No murmurs, rubs or gallops. ABDOMEN: Abdominal exam reveals normal bowel sounds. Non-tender and non- distended. No evidence of peritonitis. EXTREMITITES: No clubbing, cyanosis, or edema. Objective - Vital Signs Vital signs: Vital Signs Temp 97.1 F L 10/06/17 21:20 Pulse 60 10/07/17 07:33 Resp 16 10/06/17 23:35 BP 147/76 10/06/17 21:20 Pulse Ox 94 L 10/07/17 07:17 Intake & Output 10/06/17 10/07/17 10/07/17 18:59 06:59 18:59 Intake Total 720 Output Total 451 1000 Balance -451 -280 Weight 75 kg 74 kg Intake: Oral 720 Output: Urine 450 1000 Stool 1 Other: Voiding Method Indwelling Catheter Indwelling Catheter # Voids 0 - Labs CBC & Chem 7: 10/06/17 07:51 10/07/17 09:30 Labs: Abnormal Lab Results - Last 24 Hours (Table) 10/06/17 10/06/17 10/06/17 Range/Units 12:06 17:10 20:28 Sodium (137-145) mmol/L BUN (9-20) mg/dL Creatinine (0.66-1.25) mg/dL Glucose (74-99) mg/dL POC Glucose (mg/dL) 168 H 182 H 147 H (75-99) mg/dL Calcium (8.4-10.2) mg/dL 10/07/17 10/07/17 Range/Units 07:39 09:30 Sodium 136 L (137-145) mmol/L BUN 49 H (9-20) mg/dL Creatinine 2.02 H (0.66-1.25) mg/dL Glucose 194 H (74-99) mg/dL POC Glucose (mg/dL) 182 H (75-99) mg/dL Calcium 7.7 L (8.4-10.2) mg/dL Microbiology - Last 24 Hours (Table) 10/04/17 Unknown Urine Culture - Final Urine,Catheterized Methicillin resist S. aureus Enterococcus faecalis Assessment and Plan Plan: Assessment: 1. Nonoliguric acute kidney injury secondary to ATN secondary to sepsis. Currently hemodialysis dependent on a Tuesday schedule. 2. MRSA bacteremia. 3. UTI with urine culture positive for MRSA and enterococcus. 4. Anemia of chronic kidney disease maintained on Aranesp. 5. Encephalopathy related to sepsis. Improved. Plan: Scheduled for permacath placement today. The groin catheter will be discontinued. Check labs in the morning and continue with hemodialysis on a Tuesday schedule for now. Outpatient dialysis has been set up for him. Will continue to monitor for renal recovery. Check phosphorus level.
[2017-10-07 11:33] LABS: Glucose,Whole Blood 149 mg/dL (75-99)
--- NOTE | 2017-10-07 11:45 | P.PN ---
Subjective Progress Note Date: 10/07/17 This is a 71-year-old male one of Dr. Lucas Gallo's patient with past medical history of hypertension, hyperlipidemia, diabetes, COPD, chronic systolic and possible diastolic heart failure, alcoholism, coronary artery disease and underwent CABG 2015 ended up having multiple complications and the multiple rehospitalization for worsening shortness of breath, A. fib and other complication. He has had several admissions over the past 2 months for recurrent metabolic encephalopathy with sepsis of possible aspiration pneumonia and urinary tract infection. He has been followed by Dr. Nicholas, Dr. Louis. Thought changes were possibly related to narcotic use. On recent admission in July patient did require intubation. He is currently residing at [facility] on the care of Dr. Blackman and most recent discharge was on September 05. Patient was brought in by EMS on September 14 to the emergency center due to mental status changes. Patient was treated with increased Lasix and return to the [facility] for CHF exacerbation. His vital signs were stable at that time , BUN 36 creatinine 2.08, normal white count. Troponin was negative. Patient return to [facility] emergency center on September 15 due to pulse ox of 80s, generalized weakness and decreased level of consciousness. Patient barely was placed on oxygen by EMS and became much more alert. Temperature max is 100.2, vital signs were otherwise stable. Initial pulse ox was 89%. EKG was atrial fibrillation controlled rate with T-wave inversion in the inferior leads. Patient was admitted to the selective care unit and consult placed with cardiology and pulmonary medicine. Patient's mentation appears to be back to his baseline. He is more alert and interactive today is feeling little bit better slightly decreased shortness of breath compared to before. Patient be seen cardiology still on diuretics whether can benefit from any further testing cardiac-hardwick are not is to be determined. Also patient has passed his swallow eval despite having aspiration pneumonia being treated for. 09/18/2017: Patient is doing much better is drinking his coffee this had his breakfast earlier. His microbiology came back positive for MRSA and enterococcus, patient is seen infectious disease was switched from vancomycin to daptomycin. 09/19: Patient is clinically doing much better surprisingly his chest x-ray came back more positive for low below pneumonia with multi-patchy area in the chest, still treated for UTI and aspiration pneumonia with the same antibiotics. Patient is interacting more and his acute mental status change reverse almost back to its baseline. 09/20: Patient has been followed by phone or medicine and cardiology. Cardiology has signed off and following as needed only. Dr. Louis is following for MRSA bacteremia likely urinary tract infection is the source. Grullon catheter has been exchanged. Plan is for patient to be on daptomycin for 2 weeks. Midline is to be placed today. Patient has been afebrile. Pulse ox 95 % on 6 L nasal cannula. Today, BUN 46, creatinine 2.94 potassium 5.4. Hemoglobin is stable at 8.9. Other electrolytes within normal limits and liver function tests within normal limits. Patient was started on Solu-Medrol 60 mg every 6 hours bipolar medicine yesterday. Blood sugars are running in the 200s.Solu-Medrol will be decreased to 40 mg every 8 hours. We'll plan for discharge tomorrow. 09/21: Pulse ox is 97% on 3 L nasal cannula. Renal function is worsening with BUN 61 and creatinine 3.65, hemoglobin 8.2. Plan is for renal function to be monitored at the [facility]. Patient denies any difficulty breathing. Patient is drowsy but answers questions appropriately and denies any new complaints. He denies any abdominal pain. No nausea or vomiting. Grullon catheter remains in place. Plan was for patient to be discharged to [facility] but insurance authorization was still pending. 09/22: Insurance authorization has been obtained but discharge is being held as patient's renal function has continued to climb and he is at a BUN of 75 and creatinine 3.99. Consult added for Dr. Mcbride. Lasix has been discontinued and patient started on IV fluids 0.9 normal saline at 75 mL per hour. Solu- Medrol will be decreased to 40 mg every 12 hours. Blood sugars have been running high for which Levemir 10 units daily added. Patient states that he is not feeling good today. He is not eating or drinking very much. He does have Glucerna. He states he has no appetite. 09/23: Patient sitting up in bed is feeling better today he denies any chest pain , is less short of breath, he continues to have Grullon catheter in place, we will postpone his discharge until Tuesday due to his acute kidney injury. 09/24: Total: Patient wanted to get up from bed, however he is recently , otherwise is comfortable, patient pulled out th midline last night, this would be reinserted for new midline and ordered for Tuesday, completed IV antibiotics daptomycin for MRSA bacteremia until October 02 by infectious disease, creatinine remains to be elevated at 4.7, and admitting creatinine of 2.5. With catheter draining clear, Grullon catheter remaining clear urine nephrology following., 09/25: Patient is comfortable today, however creatinine reached be high at 4.5 bun at 99. hyperkalemia 5.5 kayexelate 15 mg x 1 dose weekly Solu-Medrol and discontinue IV, oral prednisone 40the morning, midline IV access anticipated to be performed in the morning 09/26 creatinine remains higher with worsening of BUN, nephrology discussed hemodialysis, patient cannot make his own well-informed medical decision, KAIA is the youngest son, and I've spoken to him to make the final decision to assist with the father, and family members as well. The patient himself when inquired, does not want to be on dialysis, he wants his youngest son to assist, he would await family decision with KAIA next of kin [place] for final recommendation 09/27: Family undecided yet regarding renal replacement therapy, patient cannot fully understand the consequences and the indication for renal replacement therapy, patient states that if he could avoid it he would not go for dialysis however he also wants things that are for him.daughter at bedside, Chintan, updated regards to outcome,patient still remains severely azotemiaBUN of 105 creatinine 4.75 potassium 4.8 09/28: Patient and son wish to pursue hemodialysis. Dr. Cabello consult and patient will be transferred to ICU to do catheter placement and start dialysis. Dr. Tang to be updated. BUN is 104 and creatinine 4.41. Blood sugars are running in the 200s and 300s. Levemir dose increased. 09/29: Patient had dialysis catheter placement on the right from oral with Dr. Cabello and patient was transferred into the intensive care unit. He has been hemodynamically stable. Dr. Mcbride has ordered hemodialysis today and will be determined on a day-to-day basis. BUN is 106 and creatinine 4.1. Blood sugars remain elevated secondary to steroids. He is currently on prednisone 40 mg daily. Lantus was increased to 12 units yesterday. Cardiology has reduced the dose of Lopressor with parameters with dialysis. Patient will be transferred to the [facility] floor later today. Patient's mental status is alert and oriented today. Patient has been asking for items that on his diet and stating that he only has 6 months to live to his nurse. 09/30: Repeat BUN 79 and creatinine 3.17 after dialysis yesterday. Hemoglobin is 8.7. Awaiting determination from nephrology and patient will be re-dialyzed today and if he will need long-term at the [facility]. At this time, we are anticipate discharge back to [facility] on Tuesday. Patient continued to be confused at baseline mental status, tolerating diet, urine output continued to be at baseline. He to 40 mL/h and his Grullon catheter bag, patient seems to be comfortable in no acute distress and denying pain. 10/01: Patient continued to be confused at baseline mental status, tolerating diet , urine output continued to be at baseline. He to 40 mL/h and his Grullon catheter bag, patient seems to be comfortable in no acute distress and denying pain 10/02: Patient continued to be confused at baseline mental status, tolerating diet, urine output continued to be at baseline around 40 mL/h and his Grullon catheter bag, patient seems to be comfortable in no acute distress and denying pain. 10/03: Patient was given Lasix 100 mg IV yesterday. He is scheduled for hemodialysis of 3 L today. Awaiting determination from nephrology whether patient will be long-term dialysis and a chair time for him prior to discharge back to [facility]. Grullon catheter remains in place. No new complaints. 10/04: Nephrology is planning to continue hemodialysis and a later date this may be discontinued as an outpatient. Sodium bicarb has been discontinued. Dr. Louis has discontinued daptomycin as patient has completed his course of IV antibiotics for MRSA bacteremia. We are currently awaiting authorization from his insurance for dialysis and also for subacute rehab. Patient was given Lasix 40 mg this morning. Repeat chest x-ray ordered. 10/05: Patient will be placed on Lasix 40 mg orally every day. He is tentatively set up for hemodialysis on Tuesday. Dr. Tang will look at lab work in the morning and determine if patient will need ongoing hemodialysis. If he does not, patient will be discharged tomorrow morning. Otherwise, patient will need permanent dialysis catheter placed by Dr. Cabello. If this is necessary, patient most likely will have dialysis catheter placed on Tuesday and plan for discharge to ECF on Tuesday following dialysis. 10/06: Repeat labs showed BUN of 69 creatinine 2.69, hemoglobin 8.6 and white count 11.3. Electrolytes are within normal limits. Capillary blood glucose running anywhere between 158 and 300. We expect the patient's blood sugars will drop significantly since he is off prednisone. Levemir was discontinued yesterday and he is on NovoLog scale only. Patient will need to continue on hemodialysis. Dr. Cabello will put in a dialysis catheter either on Tuesday or Tuesday. This may delay are discharged to [facility] until Tuesday. Patient's son is working on POA which needs to be in place for hemodialysis. 10/07: She was seated up in a chair for a brief period this morning. His repeat BUN is 49 and creatinine 2.02. He remains with Grullon catheter in place. Dr. Cabello will perform permacath placement today or tomorrow and the groin catheter will be discontinued. Patient will then be on hemodialysis Tuesday, , Tuesday schedule. We anticipate discharge to ECF on Tuesday. There is a pending guardianship issue as son is to follow-up with paperwork to complete this. Social work is following Objective - Vital Signs Vital signs: Vital Signs Temp 97.1 F L 10/06/17 21:20 Pulse 60 10/07/17 07:33 Resp 16 10/06/17 23:35 BP 147/76 10/06/17 21:20 Pulse Ox 94 L 10/07/17 07:17 Intake & Output 10/06/17 10/07/17 10/07/17 18:59 06:59 18:59 Intake Total 720 Output Total 451 1000 Balance -451 -280 Weight 75 kg 74 kg Intake: Oral 720 Output: Urine 450 1000 Stool 1 Other: Voiding Method Indwelling Catheter Indwelling Catheter # Voids 0 - Exam General appearance: Present: cooperative, disheveled, no acute distress. Absent : average body habitus, mild distress, morbidly obese, obese, severe distress, thin - EENT Eyes: Present: normal appearance. Absent: abnormal pupil, anicteric sclerae, disc margins sharp, edentulous, EOMI, PERRLA, fundus normal, photophobia, dentition normal, poor dentition, ptosis, scleral icterus ENT: Present: hard of hearing, pharyngeal erythema. Absent: hearing grossly normal, NA/AT, normal oropharynx, other, thrush, tonsillar exudates, tonsillar swelling Ears: bilateral: normal - Neck Neck: Present: normal ROM. Absent: lymphadenopathy, other, rigidity, stridor, thyromegaly Carotids: bilateral: upstroke normal, upstroke delayed Thyroid: bilateral: normal size - Respiratory Respiratory: bilateral: CTA, diminished, dullness, rales, rhonchi - Cardiovascular Rhythm: regular Heart sounds: normal: S1, S2 Abnormal Heart Sounds: Present: systolic murmur, S3 Gallop - Gastrointestinal General gastrointestinal: Present: decreased bowel sounds, distended, normal bowel sounds, soft. Absent: absent bowel sounds, hepatomegaly, hyperactive bowel sounds, organomegaly, rigid, scaphoid, splenomegaly, tenderness, umbilical hernia, ventral hernia - Integumentary Integumentary: Present: normal, pale, rash. Absent: calor, cellulitis, cyanotic , decreased turgor, flushed, jaundiced, normal turgor, ulcer - Neurologic Neurologic: Present: CNII-XII intact - Musculoskeletal Musculoskeletal: Present: generalized weakness, strength equal bilaterally. Absent: gait normal, right sided weakness, left sided weakness - Psychiatric Psychiatric: A&O x's 2, no appropriate affect, no intact judgment & insight - Labs CBC & Chem 7: 10/06/17 07:51 10/07/17 09:30 Labs: Abnormal Lab Results - Last 24 Hours (Table) 10/06/17 10/06/17 10/06/17 Range/Units 07:51 07:51 12:06 WBC 11.3 H (3.8-10.6) k/uL RBC 2.98 L (4.30-5.90) m/uL Hgb 8.6 L (13.0-17.5) gm/dL Hct 27.3 L (39.0-53.0) % RDW 18.2 H (11.5-15.5) % Plt Count 146 L (150-450) k/uL Neutrophils # 9.6 H (1.3-7.7) k/uL Lymphocytes # 0.9 L (1.0-4.8) k/uL BUN 69 H (9-20) mg/dL Creatinine 2.67 H (0.66-1.25) mg/dL Glucose 137 H (74-99) mg/dL POC Glucose (mg/dL) 168 H (75-99) mg/dL Calcium 8.0 L (8.4-10.2) mg/dL Total Protein 5.4 L (6.3-8.2) g/dL Albumin 2.5 L (3.5-5.0) g/dL 10/06/17 10/06/17 10/07/17 Range/Units 17:10 20:28 07:39 WBC (3.8-10.6) k/uL RBC (4.30-5.90) m/uL Hgb (13.0-17.5) gm/dL Hct (39.0-53.0) % RDW (11.5-15.5) % Plt Count (150-450) k/uL Neutrophils # (1.3-7.7) k/uL Lymphocytes # (1.0-4.8) k/uL BUN (9-20) mg/dL Creatinine (0.66-1.25) mg/dL Glucose (74-99) mg/dL POC Glucose (mg/dL) 182 H 147 H 182 H (75-99) mg/dL Calcium (8.4-10.2) mg/dL Total Protein (6.3-8.2) g/dL Albumin (3.5-5.0) g/dL Microbiology - Last 24 Hours (Table) 10/04/17 Unknown Urine Culture - Final Urine,Catheterized Methicillin resist S. aureus Enterococcus faecalis Assessment and Plan Plan: 1. Acute hypoxic respiratory failure secondary to bilateral pleural effusions with bibasilar atelectasis due to acute on chronic diastolic heart failure. Pulmonary medicine has ruled out pneumonia. Lasix 40 mg orally daily. 2. Hypoxia encephalopathy most likely secondary to low pulse ox. Patient's mentation improved with oxygen therapy. Continue as in #1., Has improved from the last 48 hours. 3. Pneumonia ruled out by pulmonary medicine. 4. Acute kidney injury with CKD stage III with recent acute failure secondary to ATN secondary to sepsis. Consult with Dr. Mcbride is appreciated. Dialysis catheter placed by Dr. Cabello. Patient on dialysis treatment. Permanent dialysis is needed Patient will need permanent dialysis catheter placed a day or tomorrow with Dr. Cabello 5. Arrhythmia history with prior Nonsustained ventricular tachycardia on 2015 H and was seen by cardiology echocardiogramJuly 2016 showed atrial fibrillation with small pericardial effusion noted ejection fraction 45-50% inferolateral hypokinesis with palpation of LA size over 40. 6. Grullon catheter associated MRSA urinary tract infection and bacteremia with sepsis Dr. Louis recommends daptomycin. Course will be completed on October 02. 7. CAD post CABG. continue aspirin 81 mg orally once every day, Lipitor 40 mg daily, Lopressor. 8. Diabetes mellitus type II with hyperglycemia secondary to steroids: Levemir has been added. Continue with NovoLog sliding scale. Patient has been off scheduled insulin due to hypoglycemia. 9. Hypertensive cardiovascular disease. Continue amlodipine 5 mg twice daily, hydralazine 100 mg 3 times daily, lisinopril 5 mg daily, lopressor 12.5 mg twice daily. 10. Hyperlipidemia: Continue statin. 11. Chronic A. fib. Patient is no longer on Coumadin. This may be related to risk of falls. 12. Recurrent depression: Continue Paxil. 13. Seizure history: Has been on Keppra 750 g twice a day with no new seizure activity. 14. Urinary retention with BPH: Patient has chronic Grullon catheter. Continue Flomax. 15. Severe GERD: Will add Protonix 40 mg daily 16. Severe protein calorie malnutrition due to lack of oral intake. Protein supplement. 17. Chronic low back pain. No change. Patient is off [place] Discharge plan: [facility] Impression and plan of care have been directed as dictated by the signing physician. Carly Greene nurse practitioner acting as scribe for signing physician.
[2017-10-07] MEDS: DARBEPOETIN ALFA 40 MCG/0.4 ML SYRINGE SQ SCH (14:18)
[2017-10-07] MEDS ORDERED: SODIUM CHLORIDE 0.9% 500 ML IV ONE (15:45)
[2017-10-07] MEDS ORDERED: LIDOCAINE 2% INJ 20 MG/ML SQ ONE (16:07)
[2017-10-07] MEDS: fentaNYL (PF) 50 MCG/ML 2 ML AMP IV ONE ×2 (16:08→16:15)
--- NOTE | 2017-10-07 17:07 | OP ---
OPERATIVE REPORT PREOPERATIVE DIAGNOSIS: Acute renal failure. PROCEDURE: 1. Placement of 23 cm dialysis catheter, ultrasound-guided, right jugular approach. 2. Removal of the temporary dialysis catheter, right femoral approach. Patient was brought to the labor gang supervisor. Right side of the chest and groin was prepped and draped in sterile manner. Lidocaine 1% was infiltrated in the neck area and ultrasound- guided micropuncture was introduced in the right femoral vein. Micropuncture guide was passed and 4-Croatian dilator was advanced on top of the guidewire. Then we passed a regular guidewire This guidewire was parked in the inferior vena cava and then tunnel was created. Through the tunnel we brought a 23 cm dialysis catheter. Dilator and sheath were advanced on the top of the guidewire, through the sheath introduced dialysis catheter. Tip of the catheter in superior vena cava and atrium. Flushed with heparin saline and Hep-locked. Incision was closed with Vicryl and nylon. Then the right groin was prepped and stitches were removed from the right groin. Temporary dialysis catheter was removed. Pressure was held. Pressure dressing was applied. Patient tolerated the procedure well. MMODL / IJN: [id number] /
[2017-10-07 17:38] LABS: Glucose,Whole Blood 156 mg/dL (75-99)
--- NOTE | 2017-10-07 17:50 | XR ---
EXAMINATION TYPE: XR chest 1V confirm line [facility] DATE OF EXAM: 10/07/2017 COMPARISON: 10/04/2017 HISTORY: Catheter placement TECHNIQUE: Single frontal view of the chest is obtained. FINDINGS: There is dual-lumen right central venous catheter with tip over the right atrium. There is pulmonary vascular congestion. Heart is enlarged. There is slight blunting of costophrenic angles. IMPRESSION: Congestive heart failure that appears the same or slightly worse than last exam. Small p leural effusions.
[2017-10-07 18:25] LABS: Amorphous Sediment,Urine Occasional /hpf; Appearance,Urine Cloudy (Clear); Bacteria,Urine Occasional /hpf; Bilirubin,Urine Negative (Negative); Blood,Urine Small (Negative); Color,Urine Yellow; Glucose,Urine (UA) Negative (Negative); Ketones,Urine Negative (Negative); Leukocyte Esterase,Urine Large (Negative); Nitrite,Urine Negative (Negative); Protein,Urine 2+ (Negative); RBC,Urine 1 /hpf (0-5); Urobilinogen,Urine <2.0 mg/dL (<2.0); WBC,Urine 69 /hpf (0-5)
[2017-10-07 20:03] LABS: Glucose,Whole Blood 169 mg/dL (75-99)
[2017-10-07] MEDS: MULTIVITAMINS, THERA 1 EACH TAB PO SCH (22:16)
[2017-10-07] MEDS: MONTELUKAST 10 MG TAB PO SCH (22:17)
[2017-10-08] MEDS: HEPARIN SODIUM,PORCINE 5,000 UNIT/ML 1 ML VIAL SQ SCH ×4 (00:42→23:56)
--- NOTE | 2017-10-08 04:07 | PN ---
PROGRESS NOTE DATE OF SERVICE: 10/07/2017. REASON FOR FOLLOW UP: Urinary tract infection. INTERVAL HISTORY: The patient is afebrile. He is breathing comfortably. Denies any chest pain or shortness of breath or cough. No abdominal pain or any diarrhea. EXAMINATION: Blood pressure 135/75 with a pulse of 82, temperature is 97.6. He is 96% on 2 L nasal cannula. General description is an elderly male lying in bed in no distress. Respiratory system: Unlabored breathing. Clear to auscultation anteriorly. Heart S1, S2. Regular rate and rhythm. Abdomen soft, no tenderness. LABS: BUN 14, creatinine 2.02. His urine culture 10/04 again showing MRSA enterococcus faecalis. DIAGNOSTIC IMPRESSION AND PLAN: Patient with MRSA bacteremia secondary to the urinary source that was treated with 2 weeks of daptomycin, now with repeat urinalysis that was positive. Urine showing resistant pathogen. His Grullon will be changed. Urine culture from new Grullon and will restart daptomycin, watching his clinical course closely. Continue supportive care. MMODL / IJN: [id number] /
[2017-10-08 07:16] LABS: Glucose,Whole Blood 159 mg/dL (75-99)
[2017-10-08 07:32] LABS: Anisocytosis Slight; HCT 24.5 % (39.0-53.0); HGB 7.7 gm/dL (13.0-17.5); Hypochromasia Slight; MCH 28.9 pg (25.0-35.0); MCHC 31.5 g/dL (31.0-37.0); MCV 91.9 fL (80.0-100.0); Mean Platelet Volume 7.7; Platelet Count 105 k/uL (150-450); RBC 2.67 m/uL (4.30-5.90); RDW 17.6 % (11.5-15.5); WBC 9.5 k/uL (3.8-10.6)
[2017-10-08 07:59] LABS: Calcium 7.4 mg/dL (8.4-10.2); Phosphorus 3.2 mg/dL (2.5-4.5); Potassium 3.9 mmol/L (3.5-5.1)
[2017-10-08] MEDS: NYSTATIN 100,000UNIT/GM CREAM 30 GM TUBE TOPICAL SCH (08:28)
[2017-10-08] MEDS: TRIAMCINOLONE 0.1% CREAM 80 GM TUBE TOPICAL SCH (08:28)
[2017-10-08] MEDS: hydrALAZINE HCL 25 MG TAB PO SCH ×4 (08:29→17:58)
[2017-10-08] MEDS: PARoxetine 10 MG TAB PO SCH (08:29)
[2017-10-08] MEDS: INSULIN ASPART 100 UNIT/ML 1 ML 10 ML VIAL SQ SCH ×4 (08:29→20:40)
[2017-10-08] MEDS: TAMSULOSIN 0.4 MG CAP.ER.24H PO SCH ×2 (08:29→20:38)
[2017-10-08] MEDS: METOPROLOL TARTRATE 12.5 MG TAB PO SCH ×2 (08:30→20:38)
[2017-10-08] MEDS: PANTOPRAZOLE 40 MG TABLET PO SCH (08:30)
[2017-10-08] MEDS: FUROSEMIDE 40 MG TAB PO SCH (08:30)
[2017-10-08] MEDS: ISOSORBIDE MONONITRATE ER 30 MG TAB.ER.24H PO SCH (08:30)
[2017-10-08] MEDS: FLUCONAZOLE 100 MG TAB PO SCH (08:30)
--- NOTE | 2017-10-08 09:14 | P.PN ---
Subjective Progress Note Date: 10/08/17 This is a 71-year-old male one of Dr. Lucas Gallo's patient with past medical history of hypertension, hyperlipidemia, diabetes, COPD, chronic systolic and possible diastolic heart failure, alcoholism, coronary artery disease and underwent CABG 2015 ended up having multiple complications and the multiple rehospitalization for worsening shortness of breath, A. fib and other complication. He has had several admissions over the past 2 months for recurrent metabolic encephalopathy with sepsis of possible aspiration pneumonia and urinary tract infection. He has been followed by Dr. Nicholas, Dr. Louis. Thought changes were possibly related to narcotic use. On recent admission in July patient did require intubation. He is currently residing at [facility] on the care of Dr. Blackman and most recent discharge was on September 05. Patient was brought in by EMS on September 14 to the emergency center due to mental status changes. Patient was treated with increased Lasix and return to the residential for CHF exacerbation. His vital signs were stable at that time , BUN 36 creatinine 2.08, normal white count. Troponin was negative. Patient return to [facility] emergency center on September 15 due to pulse ox of 80s, generalized weakness and decreased level of consciousness. Patient barely was placed on oxygen by EMS and became much more alert. Temperature max is 100.2, vital signs were otherwise stable. Initial pulse ox was 89%. EKG was atrial fibrillation controlled rate with T-wave inversion in the inferior leads. Patient was admitted to the selective care unit and consult placed with cardiology and pulmonary medicine. Patient's mentation appears to be back to his baseline. He is more alert and interactive today is feeling little bit better slightly decreased shortness of breath compared to before. Patient be seen cardiology still on diuretics whether can benefit from any further testing cardiac-hardwick are not is to be determined. Also patient has passed his swallow eval despite having aspiration pneumonia being treated for. 09/18/2017: Patient is doing much better is drinking his coffee this had his breakfast earlier. His microbiology came back positive for MRSA and enterococcus, patient is seen infectious disease was switched from vancomycin to daptomycin. 09/19: Patient is clinically doing much better surprisingly his chest x-ray came back more positive for low below pneumonia with multi-patchy area in the chest, still treated for UTI and aspiration pneumonia with the same antibiotics. Patient is interacting more and his acute mental status change reverse almost back to its baseline. 09/20: Patient has been followed by phone or medicine and cardiology. Cardiology has signed off and following as needed only. Dr. Louis is following for MRSA bacteremia likely urinary tract infection is the source. Grullon catheter has been exchanged. Plan is for patient to be on daptomycin for 2 weeks. Midline is to be placed today. Patient has been afebrile. Pulse ox 95 % on 6 L nasal cannula. Today, BUN 46, creatinine 2.94 potassium 5.4. Hemoglobin is stable at 8.9. Other electrolytes within normal limits and liver function tests within normal limits. Patient was started on Solu-Medrol 60 mg every 6 hours bipolar medicine yesterday. Blood sugars are running in the 200s.Solu-Medrol will be decreased to 40 mg every 8 hours. We'll plan for discharge tomorrow. 09/21: Pulse ox is 97% on 3 L nasal cannula. Renal function is worsening with BUN 61 and creatinine 3.65, hemoglobin 8.2. Plan is for renal function to be monitored at the residential. Patient denies any difficulty breathing. Patient is drowsy but answers questions appropriately and denies any new complaints. He denies any abdominal pain. No nausea or vomiting. Grullon catheter remains in place. Plan was for patient to be discharged to [facility] but insurance authorization was still pending. 09/22: Insurance authorization has been obtained but discharge is being held as patient's renal function has continued to climb and he is at a BUN of 75 and creatinine 3.99. Consult added for Dr. Mcbride. Lasix has been discontinued and patient started on IV fluids 0.9 normal saline at 75 mL per hour. Solu- Medrol will be decreased to 40 mg every 12 hours. Blood sugars have been running high for which Levemir 10 units daily added. Patient states that he is not feeling good today. He is not eating or drinking very much. He does have Glucerna. He states he has no appetite. 09/23: Patient sitting up in bed is feeling better today he denies any chest pain , is less short of breath, he continues to have Grullon catheter in place, we will postpone his discharge until Tuesday due to his acute kidney injury. 09/24: Total: Patient wanted to get up from bed, however he is recently , otherwise is comfortable, patient pulled out th midline last night, this would be reinserted for new midline and ordered for Tuesday, completed IV antibiotics daptomycin for MRSA bacteremia until October 02 by infectious disease, creatinine remains to be elevated at 4.7, and admitting creatinine of 2.5. With catheter draining clear, Grullon catheter remaining clear urine nephrology following., 09/25: Patient is comfortable today, however creatinine reached be high at 4.5 bun at 99. hyperkalemia 5.5 kayexelate 15 mg x 1 dose weekly Solu-Medrol and discontinue IV, oral prednisone 40the morning, midline IV access anticipated to be performed in the morning 09/26 creatinine remains higher with worsening of BUN, nephrology discussed hemodialysis, patient cannot make his own well-informed medical decision, KAIA is the youngest son, and I've spoken to him to make the final decision to assist with the father, and family members as well. The patient himself when inquired, does not want to be on dialysis, he wants his youngest son to assist, he would await family decision with KAIA next of kin [place] for final recommendation 09/27: Family undecided yet regarding renal replacement therapy, patient cannot fully understand the consequences and the indication for renal replacement therapy, patient states that if he could avoid it he would not go for dialysis however he also wants things that are for him.daughter at bedside, Chintan, updated regards to outcome,patient still remains severely azotemiaBUN of 105 creatinine 4.75 potassium 4.8 09/28: Patient and son wish to pursue hemodialysis. Dr. Cabello consult and patient will be transferred to ICU to do catheter placement and start dialysis. Dr. Tang to be updated. BUN is 104 and creatinine 4.41. Blood sugars are running in the 200s and 300s. Levemir dose increased. 09/29: Patient had dialysis catheter placement on the right from oral with Dr. Cabello and patient was transferred into the intensive care unit. He has been hemodynamically stable. Dr. Mcbride has ordered hemodialysis today and will be determined on a day-to-day basis. BUN is 106 and creatinine 4.1. Blood sugars remain elevated secondary to steroids. He is currently on prednisone 40 mg daily. Lantus was increased to 12 units yesterday. Cardiology has reduced the dose of Lopressor with parameters with dialysis. Patient will be transferred to the [facility] floor later today. Patient's mental status is alert and oriented today. Patient has been asking for items that on his diet and stating that he only has 6 months to live to his nurse. 09/30: Repeat BUN 79 and creatinine 3.17 after dialysis yesterday. Hemoglobin is 8.7. Awaiting determination from nephrology and patient will be re-dialyzed today and if he will need long-term at the residential. At this time, we are anticipate discharge back to [facility] on Tuesday. Patient continued to be confused at baseline mental status, tolerating diet, urine output continued to be at baseline. He to 40 mL/h and his Grullon catheter bag, patient seems to be comfortable in no acute distress and denying pain. 10/01: Patient continued to be confused at baseline mental status, tolerating diet , urine output continued to be at baseline. He to 40 mL/h and his Grullon catheter bag, patient seems to be comfortable in no acute distress and denying pain 10/02: Patient continued to be confused at baseline mental status, tolerating diet, urine output continued to be at baseline around 40 mL/h and his Grullon catheter bag, patient seems to be comfortable in no acute distress and denying pain. 10/03: Patient was given Lasix 100 mg IV yesterday. He is scheduled for hemodialysis of 3 L today. Awaiting determination from nephrology whether patient will be long-term dialysis and a chair time for him prior to discharge back to [facility] [place]. Grullon catheter remains in place. No new complaints. 10/04: Nephrology is planning to continue hemodialysis and a later date this may be discontinued as an outpatient. Sodium bicarb has been discontinued. Dr. Louis has discontinued daptomycin as patient has completed his course of IV antibiotics for MRSA bacteremia. We are currently awaiting authorization from his insurance for dialysis and also for subacute rehab. Patient was given Lasix 40 mg this morning. Repeat chest x-ray ordered. 10/05: Patient will be placed on Lasix 40 mg orally every day. He is tentatively set up for hemodialysis on Tuesday. Dr. Tang will look at lab work in the morning and determine if patient will need ongoing hemodialysis. If he does not, patient will be discharged tomorrow morning. Otherwise, patient will need permanent dialysis catheter placed by Dr. Cabello. If this is necessary, patient most likely will have dialysis catheter placed on Tuesday and plan for discharge to ECF on Tuesday following dialysis. 10/06: Repeat labs showed BUN of 69 creatinine 2.69, hemoglobin 8.6 and white count 11.3. Electrolytes are within normal limits. Capillary blood glucose running anywhere between 158 and 300. We expect the patient's blood sugars will drop significantly since he is off prednisone. Levemir was discontinued yesterday and he is on NovoLog scale only. Patient will need to continue on hemodialysis. Dr. Cabello will put in a dialysis catheter either on Tuesday or Tuesday. This may delay are discharged to residential until Tuesday. Patient's son is working on POA which needs to be in place for hemodialysis. 10/07: She was seated up in a chair for a brief period this morning. His repeat BUN is 49 and creatinine 2.02. He remains with Grullon catheter in place. Dr. Cabello will perform permacath placement today or tomorrow and the groin catheter will be discontinued. Patient will then be on hemodialysis Tuesday, , Tuesday schedule. We anticipate discharge to ECF on Tuesday. There is a pending guardianship issue as son is to follow-up with paperwork to complete this. Social work is following 10/08: Dr. Cabello has placed a permanent right jugular dialysis catheter and removed his temporary catheter. BUN 15 creatinine 2.26. At this time we are planning for discharge on Tuesday back to his ECF. Objective - Vital Signs Vital signs: Vital Signs Temp 97 F L 10/08/17 05:28 Pulse 64 10/08/17 05:28 Resp 20 10/08/17 05:28 BP 167/85 10/08/17 05:28 Pulse Ox 90 L 10/08/17 05:28 Intake & Output 10/07/17 10/08/17 10/08/17 18:59 06:59 18:59 Intake Total 100 1110 Output Total 376 600 Balance -276 1110 -600 Weight 74.6 kg Intake: IV 100 160 0.9 160 Oral 950 Output: Urine 375 600 Stool 1 Other: Voiding Method Indwelling Catheter Indwelling Catheter # Voids 0 - Exam General appearance: Present: cooperative, disheveled, no acute distress. Absent : average body habitus, mild distress, morbidly obese, obese, severe distress, thin - EENT Eyes: Present: normal appearance. Absent: abnormal pupil, anicteric sclerae, disc margins sharp, edentulous, EOMI, PERRLA, fundus normal, photophobia, dentition normal, poor dentition, ptosis, scleral icterus ENT: Present: hard of hearing, pharyngeal erythema. Absent: hearing grossly normal, NA/AT, normal oropharynx, other, thrush, tonsillar exudates, tonsillar swelling Ears: bilateral: normal - Neck Neck: Present: normal ROM. Absent: lymphadenopathy, other, rigidity, stridor, thyromegaly Carotids: bilateral: upstroke normal, upstroke delayed Thyroid: bilateral: normal size - Respiratory Respiratory: bilateral: CTA, diminished, dullness, rales, rhonchi - Cardiovascular Rhythm: regular Heart sounds: normal: S1, S2 Abnormal Heart Sounds: Present: systolic murmur, S3 Gallop - Gastrointestinal General gastrointestinal: Present: decreased bowel sounds, distended, normal bowel sounds, soft. Absent: absent bowel sounds, hepatomegaly, hyperactive bowel sounds, organomegaly, rigid, scaphoid, splenomegaly, tenderness, umbilical hernia, ventral hernia - Integumentary Integumentary: Present: normal, pale, rash. Absent: calor, cellulitis, cyanotic , decreased turgor, flushed, jaundiced, normal turgor, ulcer - Neurologic Neurologic: Present: CNII-XII intact - Musculoskeletal Musculoskeletal: Present: generalized weakness, strength equal bilaterally. Absent: gait normal, right sided weakness, left sided weakness - Psychiatric Psychiatric: A&O x's 2, no appropriate affect, no intact judgment & insight - Labs CBC & Chem 7: 10/08/17 06:53 10/08/17 06:53 Labs: Abnormal Lab Results - Last 24 Hours (Table) 10/07/17 10/07/17 10/07/17 Range/Units 09:30 11:32 17:36 RBC (4.30-5.90) m/uL Hgb (13.0-17.5) gm/dL Hct (39.0-53.0) % RDW (11.5-15.5) % Plt Count (150-450) k/uL Sodium 136 L (137-145) mmol/L BUN 49 H (9-20) mg/dL Creatinine 2.02 H (0.66-1.25) mg/dL Glucose 194 H (74-99) mg/dL POC Glucose (mg/dL) 149 H 156 H (75-99) mg/dL Calcium 7.7 L (8.4-10.2) mg/dL Urine Protein (Negative) Urine Blood (Negative) Ur Leukocyte Esterase (Negative) Urine WBC (0-5) /hpf Urine WBC Clumps (None) /hpf Amorphous Sediment (None) /hpf Urine Bacteria (None) /hpf 10/07/17 10/07/17 10/08/17 Range/Units 17:45 20:01 06:53 RBC 2.67 L (4.30-5.90) m/uL Hgb 7.7 L (13.0-17.5) gm/dL Hct 24.5 L (39.0-53.0) % RDW 17.6 H (11.5-15.5) % Plt Count 105 L (150-450) k/uL Sodium (137-145) mmol/L BUN (9-20) mg/dL Creatinine (0.66-1.25) mg/dL Glucose (74-99) mg/dL POC Glucose (mg/dL) 169 H (75-99) mg/dL Calcium (8.4-10.2) mg/dL Urine Protein 2+ H (Negative) Urine Blood Small H (Negative) Ur Leukocyte Esterase Large H (Negative) Urine WBC 69 H (0-5) /hpf Urine WBC Clumps Many H (None) /hpf Amorphous Sediment Occasional H (None) /hpf Urine Bacteria Occasional H (None) /hpf 10/08/17 10/08/17 Range/Units 06:53 07:14 RBC (4.30-5.90) m/uL Hgb (13.0-17.5) gm/dL Hct (39.0-53.0) % RDW (11.5-15.5) % Plt Count (150-450) k/uL Sodium (137-145) mmol/L BUN 50 H (9-20) mg/dL Creatinine 2.26 H (0.66-1.25) mg/dL Glucose 152 H (74-99) mg/dL POC Glucose (mg/dL) 159 H (75-99) mg/dL Calcium 7.4 L (8.4-10.2) mg/dL Urine Protein (Negative) Urine Blood (Negative) Ur Leukocyte Esterase (Negative) Urine WBC (0-5) /hpf Urine WBC Clumps (None) /hpf Amorphous Sediment (None) /hpf Urine Bacteria (None) /hpf Microbiology - Last 24 Hours (Table) 10/07/17 17:45 Urine Culture - Preliminary Urine,Catheterized 10/04/17 Unknown Urine Culture - Final Urine,Catheterized Methicillin resist S. aureus Enterococcus faecalis Assessment and Plan Plan: 1. Acute hypoxic respiratory failure secondary to bilateral pleural effusions with bibasilar atelectasis due to acute on chronic diastolic heart failure. Pulmonary medicine has ruled out pneumonia. Lasix 40 mg orally daily. 2. Hypoxia encephalopathy most likely secondary to low pulse ox. Patient's mentation improved with oxygen therapy. Continue as in #1., Has improved from the last 48 hours. 3. Pneumonia ruled out by pulmonary medicine. 4. Acute kidney injury with CKD stage III with recent acute failure secondary to ATN secondary to sepsis. Consult with Dr. Mcbride is appreciated. Patient on dialysis treatment. Permanent dialysis catheter placed placed by Dr. Cabello 5. Arrhythmia history with prior Nonsustained ventricular tachycardia on 2015 H and was seen by cardiology echocardiogramJuly 2016 showed atrial fibrillation with small pericardial effusion noted ejection fraction 45-50% inferolateral hypokinesis with palpation of LA size over 40. 6. Grullon catheter associated MRSA urinary tract infection and bacteremia with sepsis Dr. Louis recommends daptomycin. Course will be completed on October 02. 7. CAD post CABG. continue aspirin 81 mg orally once every day, Lipitor 40 mg daily, Lopressor. 8. Diabetes mellitus type II with hyperglycemia secondary to steroids: Levemir has been added. Continue with NovoLog sliding scale. Patient has been off scheduled insulin due to hypoglycemia. 9. Hypertensive cardiovascular disease. Continue amlodipine 5 mg twice daily, hydralazine 100 mg 3 times daily, lisinopril 5 mg daily, lopressor 12.5 mg twice daily. 10. Hyperlipidemia: Continue statin. 11. Chronic A. fib. Patient is no longer on Coumadin. This may be related to risk of falls. 12. Recurrent depression: Continue Paxil. 13. Seizure history: Has been on Keppra 750 g twice a day with no new seizure activity. 14. Urinary retention with BPH: Patient has chronic Grullon catheter. Continue Flomax. 15. Severe GERD: Will add Protonix 40 mg daily 16. Severe protein calorie malnutrition due to lack of oral intake. Protein supplement. 17. Chronic low back pain. No change. Patient is off [place] Discharge plan: [facility] on Tuesday Impression and plan of care have been directed as dictated by the signing physician. Carly Greene nurse practitioner acting as scribe for signing physician.
[2017-10-08] MEDS: BUDESONIDE 1 MG/2 ML NEBU INHALATION SCH ×2 (09:21→19:27)
[2017-10-08] MEDS: FORMOTEROL FUMARATE 20 MCG/2 ML NEBU INHALATION SCH ×2 (09:22→19:27)
--- NOTE | 2017-10-08 09:48 | P.PN ---
Subjective Patient is seen in follow for acute kidney injury, currently hemodialysis dependent on a Tuesday schedule. He is currently being treated for MRSA bacteremia and also UTI with urine culture positive for MRSA and enterococcus. Patient denies chest pain. Does admit to some dyspnea. Currently resting in bed. Appetite is fair. He is nonoliguric. Creatinine up to 2.26 today. Vital signs are stable. General: The patient appeared well nourished and normally developed. HEENT: Head exam is unremarkable. Neck is without jugular venous distension. LUNGS: Lungs are clear to auscultation and percussion. Breath sounds decreased. HEART: Rate and Rhythm are regular. First and second heart sounds normal. No murmurs, rubs or gallops. ABDOMEN: Abdominal exam reveals normal bowel sounds. Non-tender and non- distended. No evidence of peritonitis. EXTREMITITES: No clubbing, cyanosis, or edema. Objective - Vital Signs Vital signs: Vital Signs Temp 97 F L 10/08/17 05:28 Pulse 64 10/08/17 05:28 Resp 20 10/08/17 05:28 BP 167/85 10/08/17 05:28 Pulse Ox 90 L 10/08/17 05:28 Intake & Output 10/07/17 10/08/17 10/08/17 18:59 06:59 18:59 Intake Total 100 1110 Output Total 376 600 Balance -276 1110 -600 Weight 74.6 kg Intake: IV 100 160 0.9 160 Oral 950 Output: Urine 375 600 Stool 1 Other: Voiding Method Indwelling Catheter Indwelling Catheter # Voids 0 - Labs CBC & Chem 7: 10/08/17 06:53 10/08/17 06:53 Labs: Abnormal Lab Results - Last 24 Hours (Table) 10/07/17 10/07/17 10/07/17 Range/Units 09:30 11:32 17:36 RBC (4.30-5.90) m/uL Hgb (13.0-17.5) gm/dL Hct (39.0-53.0) % RDW (11.5-15.5) % Plt Count (150-450) k/uL Sodium 136 L (137-145) mmol/L BUN 49 H (9-20) mg/dL Creatinine 2.02 H (0.66-1.25) mg/dL Glucose 194 H (74-99) mg/dL POC Glucose (mg/dL) 149 H 156 H (75-99) mg/dL Calcium 7.7 L (8.4-10.2) mg/dL Urine Protein (Negative) Urine Blood (Negative) Ur Leukocyte Esterase (Negative) Urine WBC (0-5) /hpf Urine WBC Clumps (None) /hpf Amorphous Sediment (None) /hpf Urine Bacteria (None) /hpf 10/07/17 10/07/17 10/08/17 Range/Units 17:45 20:01 06:53 RBC 2.67 L (4.30-5.90) m/uL Hgb 7.7 L (13.0-17.5) gm/dL Hct 24.5 L (39.0-53.0) % RDW 17.6 H (11.5-15.5) % Plt Count 105 L (150-450) k/uL Sodium (137-145) mmol/L BUN (9-20) mg/dL Creatinine (0.66-1.25) mg/dL Glucose (74-99) mg/dL POC Glucose (mg/dL) 169 H (75-99) mg/dL Calcium (8.4-10.2) mg/dL Urine Protein 2+ H (Negative) Urine Blood Small H (Negative) Ur Leukocyte Esterase Large H (Negative) Urine WBC 69 H (0-5) /hpf Urine WBC Clumps Many H (None) /hpf Amorphous Sediment Occasional H (None) /hpf Urine Bacteria Occasional H (None) /hpf 10/08/17 10/08/17 Range/Units 06:53 07:14 RBC (4.30-5.90) m/uL Hgb (13.0-17.5) gm/dL Hct (39.0-53.0) % RDW (11.5-15.5) % Plt Count (150-450) k/uL Sodium (137-145) mmol/L BUN 50 H (9-20) mg/dL Creatinine 2.26 H (0.66-1.25) mg/dL Glucose 152 H (74-99) mg/dL POC Glucose (mg/dL) 159 H (75-99) mg/dL Calcium 7.4 L (8.4-10.2) mg/dL Urine Protein (Negative) Urine Blood (Negative) Ur Leukocyte Esterase (Negative) Urine WBC (0-5) /hpf Urine WBC Clumps (None) /hpf Amorphous Sediment (None) /hpf Urine Bacteria (None) /hpf Microbiology - Last 24 Hours (Table) 10/07/17 17:45 Urine Culture - Preliminary Urine,Catheterized 10/04/17 Unknown Urine Culture - Final Urine,Catheterized Methicillin resist S. aureus Enterococcus faecalis Assessment and Plan Plan: Assessment: 1. Nonoliguric acute kidney injury secondary to ATN secondary to sepsis. Currently hemodialysis dependent on a Tuesday schedule. Permacath placed on October 07. 2. MRSA bacteremia. 3. UTI with urine culture positive for MRSA and enterococcus. 4. Anemia of chronic kidney disease maintained on Aranesp. 5. Encephalopathy related to sepsis. Improved. 6. Dyspnea secondary to fluid overload noted on chest x-ray. Plan: Hemodialysis today with goal 1.5-2 L UF. Outpatient dialysis has been set up for [facility] schedule. Will continue to monitor for renal recovery. Phosphorus level at goal. Strict I's and O's.
[2017-10-08] MEDS: SODIUM CHLORIDE 0.9% 1,000 ML IV SCH (10:30)
[2017-10-08 11:09] LABS: Glucose,Whole Blood 170 mg/dL (75-99)
[2017-10-08] MEDS: IPRATROPIUM-ALBUTEROL 3 ML NEB INHALATION SCH ×3 (11:23→19:27)
[2017-10-08 17:12] LABS: Glucose,Whole Blood 120 mg/dL (75-99)
[2017-10-08 20:16] LABS: Glucose,Whole Blood 162 mg/dL (75-99)
[2017-10-08] MEDS: MULTIVITAMINS, THERA 1 EACH TAB PO SCH (20:38)
[2017-10-08] MEDS: MONTELUKAST 10 MG TAB PO SCH (20:38)
[2017-10-09 07:02] LABS: Glucose,Whole Blood 172 mg/dL (75-99)
[2017-10-09] MEDS: INSULIN ASPART 100 UNIT/ML 1 ML 10 ML VIAL SQ SCH ×4 (07:22→22:04)
[2017-10-09] MEDS: METOPROLOL TARTRATE 12.5 MG TAB PO SCH ×2 (07:27→22:03)
[2017-10-09] MEDS: PARoxetine 10 MG TAB PO SCH (07:27)
[2017-10-09] MEDS: TAMSULOSIN 0.4 MG CAP.ER.24H PO SCH ×2 (07:27→22:03)
[2017-10-09] MEDS: HEPARIN SODIUM,PORCINE 5,000 UNIT/ML 1 ML VIAL SQ SCH ×3 (07:27→22:47)
[2017-10-09] MEDS: ISOSORBIDE MONONITRATE ER 30 MG TAB.ER.24H PO SCH (07:27)
[2017-10-09] MEDS: FUROSEMIDE 40 MG TAB PO SCH ×2 (07:28→15:06)
[2017-10-09] MEDS: hydrALAZINE HCL 25 MG TAB PO SCH ×3 (07:28→15:06)
[2017-10-09] MEDS: PANTOPRAZOLE 40 MG TABLET PO SCH (07:28)
[2017-10-09] MEDS: FLUCONAZOLE 100 MG TAB PO SCH (07:28)
[2017-10-09] MEDS: TRIAMCINOLONE 0.1% CREAM 80 GM TUBE TOPICAL SCH (07:29)
[2017-10-09] MEDS: NYSTATIN 100,000UNIT/GM CREAM 30 GM TUBE TOPICAL SCH (07:29)
[2017-10-09 07:31] LABS: Calcium 7.6 mg/dL (8.4-10.2); Potassium 3.8 mmol/L (3.5-5.1)
[2017-10-09] MEDS: FORMOTEROL FUMARATE 20 MCG/2 ML NEBU INHALATION SCH ×2 (08:48→19:37)
[2017-10-09] MEDS: BUDESONIDE 1 MG/2 ML NEBU INHALATION SCH ×2 (08:48→19:37)
[2017-10-09] MEDS: IPRATROPIUM-ALBUTEROL 3 ML NEB INHALATION SCH ×4 (08:48→19:37)
--- NOTE | 2017-10-09 09:33 | P.PN ---
Subjective Patient is seen in follow for acute kidney injury, currently hemodialysis dependent on a Tuesday schedule. He is currently being treated for MRSA bacteremia and also UTI with urine culture positive for MRSA and enterococcus. Patient denies chest pain. Currently resting in bed. Appetite is fair. He is nonoliguric. Vital signs are stable. General: The patient appeared well nourished and normally developed. HEENT: Head exam is unremarkable. Neck is without jugular venous distension. LUNGS: Lungs are clear to auscultation and percussion. Breath sounds decreased. HEART: Rate and Rhythm are regular. First and second heart sounds normal. No murmurs, rubs or gallops. ABDOMEN: Abdominal exam reveals normal bowel sounds. Non-tender and non- distended. No evidence of peritonitis. EXTREMITITES: No clubbing, cyanosis, or edema. Objective - Vital Signs Vital signs: Vital Signs Temp 98.1 F 10/09/17 04:58 Pulse 76 10/09/17 09:17 Resp 18 10/08/17 23:30 BP 182/88 10/09/17 04:58 Pulse Ox 89 L 10/09/17 05:01 Intake & Output 10/08/17 10/09/17 10/09/17 18:59 06:59 18:59 Intake Total 3890 220 Output Total 1201 600 Balance 2689 -380 Weight 74.2 kg Intake: Intake, IV Titration 50 160 Amount DAPTOmycin 300 mg In 50 Sodium Chloride 0.9% 50 ml @ 100 mls/hr IVPB Q48H [facility] Rx#:[id number] Sodium Chloride 0.9% 500 160 ml As IV .[facility] Rx# :[id number] Oral 3840 60 Output: Urine 1200 600 Uretheral (Grullon) 600 Stool 1 Other: Voiding Method Indwelling Catheter Indwelling Catheter # Voids 0 0 - Labs CBC & Chem 7: 10/08/17 06:53 10/09/17 06:28 Labs: Abnormal Lab Results - Last 24 Hours (Table) 10/08/17 10/08/17 10/08/17 Range/Units 11:07 17:09 20:11 BUN (9-20) mg/dL Creatinine (0.66-1.25) mg/dL Glucose (74-99) mg/dL POC Glucose (mg/dL) 170 H 120 H 162 H (75-99) mg/dL Calcium (8.4-10.2) mg/dL 10/09/17 10/09/17 Range/Units 06:28 06:59 BUN 34 H (9-20) mg/dL Creatinine 1.80 H (0.66-1.25) mg/dL Glucose 155 H (74-99) mg/dL POC Glucose (mg/dL) 172 H (75-99) mg/dL Calcium 7.6 L (8.4-10.2) mg/dL Microbiology - Last 24 Hours (Table) 10/07/17 17:45 Urine Culture - Preliminary Urine,Catheterized Gram Neg Bacilli Assessment and Plan Plan: Assessment: 1. Nonoliguric acute kidney injury secondary to ATN secondary to sepsis. Currently hemodialysis dependent on a Tuesday schedule. Permacath placed on October 07. 2. MRSA bacteremia. 3. UTI with urine culture positive for MRSA and enterococcus. 4. Anemia of chronic kidney disease maintained on Aranesp. 5. Encephalopathy related to sepsis. Improved. 6. Dyspnea secondary to fluid overload noted on chest x-ray. Plan: Next hemodialysis on Tuesday. Outpatient dialysis has been set up for [facility] schedule. Will continue to monitor for renal recovery. Phosphorus level at goal. Strict I's and O's. Increase Lasix to 40 mg twice daily.
[2017-10-09 11:23] LABS: Glucose,Whole Blood 55 mg/dL (75-99)
[2017-10-09 11:40] LABS: Glucose,Whole Blood 60 mg/dL (75-99)
--- NOTE | 2017-10-09 11:41 | P.PN ---
Subjective Progress Note Date: 10/09/17 This is a 71-year-old male one of Dr. Lucas Gallo's patient with past medical history of hypertension, hyperlipidemia, diabetes, COPD, chronic systolic and possible diastolic heart failure, alcoholism, coronary artery disease and underwent CABG 2015 ended up having multiple complications and the multiple rehospitalization for worsening shortness of breath, A. fib and other complication. He has had several admissions over the past 2 months for recurrent metabolic encephalopathy with sepsis of possible aspiration pneumonia and urinary tract infection. He has been followed by Dr. Nicholas, Dr. Louis. Thought changes were possibly related to narcotic use. On recent admission in July patient did require intubation. He is currently residing at [facility] on the care of Dr. Blackman and most recent discharge was on September 05. Patient was brought in by EMS on September 14 to the emergency center due to mental status changes. Patient was treated with increased Lasix and return to the [facility] for CHF exacerbation. His vital signs were stable at that time , BUN 36 creatinine 2.08, normal white count. Troponin was negative. Patient return to [facility] emergency center on September 15 due to pulse ox of 80s, generalized weakness and decreased level of consciousness. Patient barely was placed on oxygen by EMS and became much more alert. Temperature max is 100.2, vital signs were otherwise stable. Initial pulse ox was 89%. EKG was atrial fibrillation controlled rate with T-wave inversion in the inferior leads. Patient was admitted to the selective care unit and consult placed with cardiology and pulmonary medicine. Patient's mentation appears to be back to his baseline. He is more alert and interactive today is feeling little bit better slightly decreased shortness of breath compared to before. Patient be seen cardiology still on diuretics whether can benefit from any further testing cardiac-hardwick are not is to be determined. Also patient has passed his swallow eval despite having aspiration pneumonia being treated for. 09/18/2017: Patient is doing much better is drinking his coffee this had his breakfast earlier. His microbiology came back positive for MRSA and enterococcus, patient is seen infectious disease was switched from vancomycin to daptomycin. 09/19: Patient is clinically doing much better surprisingly his chest x-ray came back more positive for low below pneumonia with multi-patchy area in the chest, still treated for UTI and aspiration pneumonia with the same antibiotics. Patient is interacting more and his acute mental status change reverse almost back to its baseline. 09/20: Patient has been followed by phone or medicine and cardiology. Cardiology has signed off and following as needed only. Dr. Louis is following for MRSA bacteremia likely urinary tract infection is the source. Grullon catheter has been exchanged. Plan is for patient to be on daptomycin for 2 weeks. Midline is to be placed today. Patient has been afebrile. Pulse ox 95 % on 6 L nasal cannula. Today, BUN 46, creatinine 2.94 potassium 5.4. Hemoglobin is stable at 8.9. Other electrolytes within normal limits and liver function tests within normal limits. Patient was started on Solu-Medrol 60 mg every 6 hours bipolar medicine yesterday. Blood sugars are running in the 200s.Solu-Medrol will be decreased to 40 mg every 8 hours. We'll plan for discharge tomorrow. 09/21: Pulse ox is 97% on 3 L nasal cannula. Renal function is worsening with BUN 61 and creatinine 3.65, hemoglobin 8.2. Plan is for renal function to be monitored at the [facility]. Patient denies any difficulty breathing. Patient is drowsy but answers questions appropriately and denies any new complaints. He denies any abdominal pain. No nausea or vomiting. Grullon catheter remains in place. Plan was for patient to be discharged to [facility] but insurance authorization was still pending. 09/22: Insurance authorization has been obtained but discharge is being held as patient's renal function has continued to climb and he is at a BUN of 75 and creatinine 3.99. Consult added for Dr. Mcbride. Lasix has been discontinued and patient started on IV fluids 0.9 normal saline at 75 mL per hour. Solu- Medrol will be decreased to 40 mg every 12 hours. Blood sugars have been running high for which Levemir 10 units daily added. Patient states that he is not feeling good today. He is not eating or drinking very much. He does have Glucerna. He states he has no appetite. 09/23: Patient sitting up in bed is feeling better today he denies any chest pain , is less short of breath, he continues to have Grullon catheter in place, we will postpone his discharge until Tuesday due to his acute kidney injury. 09/24: Total: Patient wanted to get up from bed, however he is recently , otherwise is comfortable, patient pulled out th midline last night, this would be reinserted for new midline and ordered for Tuesday, completed IV antibiotics daptomycin for MRSA bacteremia until October 02 by infectious disease, creatinine remains to be elevated at 4.7, and admitting creatinine of 2.5. With catheter draining clear, Grullon catheter remaining clear urine nephrology following., 09/25: Patient is comfortable today, however creatinine reached be high at 4.5 bun at 99. hyperkalemia 5.5 kayexelate 15 mg x 1 dose weekly Solu-Medrol and discontinue IV, oral prednisone 40the morning, midline IV access anticipated to be performed in the morning 09/26 creatinine remains higher with worsening of BUN, nephrology discussed hemodialysis, patient cannot make his own well-informed medical decision, KAIA is the youngest son, and I've spoken to him to make the final decision to assist with the father, and family members as well. The patient himself when inquired, does not want to be on dialysis, he wants his youngest son to assist, he would await family decision with KAIA next of kin [place] for final recommendation 09/27: Family undecided yet regarding renal replacement therapy, patient cannot fully understand the consequences and the indication for renal replacement therapy, patient states that if he could avoid it he would not go for dialysis however he also wants things that are for him.daughter at bedside, Chintan, updated regards to outcome,patient still remains severely azotemiaBUN of 105 creatinine 4.75 potassium 4.8 09/28: Patient and son wish to pursue hemodialysis. Dr. Cabello consult and patient will be transferred to ICU to do catheter placement and start dialysis. Dr. Tang to be updated. BUN is 104 and creatinine 4.41. Blood sugars are running in the 200s and 300s. Levemir dose increased. 09/29: Patient had dialysis catheter placement on the right from oral with Dr. Cabello and patient was transferred into the intensive care unit. He has been hemodynamically stable. Dr. Mcbride has ordered hemodialysis today and will be determined on a day-to-day basis. BUN is 106 and creatinine 4.1. Blood sugars remain elevated secondary to steroids. He is currently on prednisone 40 mg daily. Lantus was increased to 12 units yesterday. Cardiology has reduced the dose of Lopressor with parameters with dialysis. Patient will be transferred to the [facility] floor later today. Patient's mental status is alert and oriented today. Patient has been asking for items that on his diet and stating that he only has 6 months to live to his nurse. 09/30: Repeat BUN 79 and creatinine 3.17 after dialysis yesterday. Hemoglobin is 8.7. Awaiting determination from nephrology and patient will be re-dialyzed today and if he will need long-term at the [facility]. At this time, we are anticipate discharge back to [facility] on Tuesday. Patient continued to be confused at baseline mental status, tolerating diet, urine output continued to be at baseline. He to 40 mL/h and his Grullon catheter bag, patient seems to be comfortable in no acute distress and denying pain. 10/01: Patient continued to be confused at baseline mental status, tolerating diet , urine output continued to be at baseline. He to 40 mL/h and his Grullon catheter bag, patient seems to be comfortable in no acute distress and denying pain 10/02: Patient continued to be confused at baseline mental status, tolerating diet, urine output continued to be at baseline around 40 mL/h and his Grullon catheter bag, patient seems to be comfortable in no acute distress and denying pain. 10/03: Patient was given Lasix 100 mg IV yesterday. He is scheduled for hemodialysis of 3 L today. Awaiting determination from nephrology whether patient will be long-term dialysis and a chair time for him prior to discharge back to [facility] [place]. Grullon catheter remains in place. No new complaints. 10/04: Nephrology is planning to continue hemodialysis and a later date this may be discontinued as an outpatient. Sodium bicarb has been discontinued. Dr. Louis has discontinued daptomycin as patient has completed his course of IV antibiotics for MRSA bacteremia. We are currently awaiting authorization from his insurance for dialysis and also for subacute rehab. Patient was given Lasix 40 mg this morning. Repeat chest x-ray ordered. 10/05: Patient will be placed on Lasix 40 mg orally every day. He is tentatively set up for hemodialysis on Tuesday. Dr. Tang will look at lab work in the morning and determine if patient will need ongoing hemodialysis. If he does not, patient will be discharged tomorrow morning. Otherwise, patient will need permanent dialysis catheter placed by Dr. Cabello. If this is necessary, patient most likely will have dialysis catheter placed on Tuesday and plan for discharge to ECF on Tuesday following dialysis. 10/06: Repeat labs showed BUN of 69 creatinine 2.69, hemoglobin 8.6 and white count 11.3. Electrolytes are within normal limits. Capillary blood glucose running anywhere between 158 and 300. We expect the patient's blood sugars will drop significantly since he is off prednisone. Levemir was discontinued yesterday and he is on NovoLog scale only. Patient will need to continue on hemodialysis. Dr. Cabello will put in a dialysis catheter either on Tuesday or Tuesday. This may delay are discharged to [facility] until Tuesday. Patient's son is working on POA which needs to be in place for hemodialysis. 10/07: She was seated up in a chair for a brief period this morning. His repeat BUN is 49 and creatinine 2.02. He remains with Grullon catheter in place. Dr. Cabello will perform permacath placement today or tomorrow and the groin catheter will be discontinued. Patient will then be on hemodialysis Tuesday, , Tuesday schedule. We anticipate discharge to ECF on Tuesday. There is a pending guardianship issue as son is to follow-up with paperwork to complete this. Social work is following 10/08: Dr. Cabello has placed a permanent right jugular dialysis catheter and removed his temporary catheter. BUN 15 creatinine 2.26. At this time we are planning for discharge on Tuesday back to his ECF. 10/09: Patient underwent hemodialysis yesterday. BUN is 34 and creatinine 1.80. Patient is still planned for discharge on Tuesday to rehab. No new complaints from the patient. He continues to have chest congestion and chest physiotherapy has been ordered. Objective - Vital Signs Vital signs: Vital Signs Temp 98.1 F 10/09/17 04:58 Pulse 76 10/09/17 09:17 Resp 18 10/08/17 23:30 BP 182/88 10/09/17 04:58 Pulse Ox 89 L 10/09/17 05:01 Intake & Output 10/08/17 10/09/17 10/09/17 18:59 06:59 18:59 Intake Total 3890 220 Output Total 1201 600 Balance 3019 -380 Weight 74.2 kg Intake: Intake, IV Titration 50 160 Amount DAPTOmycin 300 mg In 50 Sodium Chloride 0.9% 50 ml @ 100 mls/hr IVPB Q48H [facility] Rx#:[id number] Sodium Chloride 0.9% 500 160 ml As IV .[facility] Rx# :[id number] Oral 3840 60 Output: Urine 1200 600 Uretheral (Grullon) 600 Stool 1 Other: Voiding Method Indwelling Catheter Indwelling Catheter # Voids 0 0 - Exam General appearance: Present: cooperative, disheveled, no acute distress. Absent : average body habitus, mild distress, morbidly obese, obese, severe distress, thin - EENT Eyes: Present: normal appearance. Absent: abnormal pupil, anicteric sclerae, disc margins sharp, edentulous, EOMI, PERRLA, fundus normal, photophobia, dentition normal, poor dentition, ptosis, scleral icterus ENT: Present: hard of hearing, pharyngeal erythema. Absent: hearing grossly normal, NA/AT, normal oropharynx, other, thrush, tonsillar exudates, tonsillar swelling Ears: bilateral: normal - Neck Neck: Present: normal ROM. Absent: lymphadenopathy, other, rigidity, stridor, thyromegaly Carotids: bilateral: upstroke normal, upstroke delayed Thyroid: bilateral: normal size - Respiratory Respiratory: bilateral: CTA, diminished, dullness, rales, rhonchi - Cardiovascular Rhythm: regular Heart sounds: normal: S1, S2 Abnormal Heart Sounds: Present: systolic murmur, S3 Gallop - Gastrointestinal General gastrointestinal: Present: decreased bowel sounds, distended, normal bowel sounds, soft. Absent: absent bowel sounds, hepatomegaly, hyperactive bowel sounds, organomegaly, rigid, scaphoid, splenomegaly, tenderness, umbilical hernia, ventral hernia - Integumentary Integumentary: Present: normal, pale, rash. Absent: calor, cellulitis, cyanotic , decreased turgor, flushed, jaundiced, normal turgor, ulcer - Neurologic Neurologic: Present: CNII-XII intact - Musculoskeletal Musculoskeletal: Present: generalized weakness, strength equal bilaterally. Absent: gait normal, right sided weakness, left sided weakness - Psychiatric Psychiatric: A&O x's 2, no appropriate affect, no intact judgment & insight - Labs CBC & Chem 7: 10/08/17 06:53 10/09/17 06:28 Labs: Abnormal Lab Results - Last 24 Hours (Table) 10/08/17 10/08/17 10/08/17 Range/Units 11:07 17:09 20:11 BUN (9-20) mg/dL Creatinine (0.66-1.25) mg/dL Glucose (74-99) mg/dL POC Glucose (mg/dL) 170 H 120 H 162 H (75-99) mg/dL Calcium (8.4-10.2) mg/dL 10/09/17 10/09/17 Range/Units 06:28 06:59 BUN 34 H (9-20) mg/dL Creatinine 1.80 H (0.66-1.25) mg/dL Glucose 155 H (74-99) mg/dL POC Glucose (mg/dL) 172 H (75-99) mg/dL Calcium 7.6 L (8.4-10.2) mg/dL Microbiology - Last 24 Hours (Table) 10/07/17 17:45 Urine Culture - Preliminary Urine,Catheterized Gram Neg Bacilli Assessment and Plan Plan: 1. Acute hypoxic respiratory failure secondary to bilateral pleural effusions with bibasilar atelectasis due to acute on chronic diastolic heart failure. Pulmonary medicine has ruled out pneumonia. Lasix 40 mg orally daily. Chest physiotherapy ordered 2. Hypoxia encephalopathy most likely secondary to low pulse ox. Patient's mentation improved with oxygen therapy. Continue as in #1., Has improved from the last 48 hours. 3. Pneumonia ruled out by pulmonary medicine. 4. Acute kidney injury with CKD stage III with recent acute failure secondary to ATN secondary to sepsis. Consult with Dr. Mcbride is appreciated. Patient on dialysis treatment. Permanent dialysis catheter placed placed by Dr. Cabello 5. Arrhythmia history with prior Nonsustained ventricular tachycardia on 2015 H and was seen by cardiology echocardiogramJuly 2016 showed atrial fibrillation with small pericardial effusion noted ejection fraction 45-50% inferolateral hypokinesis with palpation of LA size over 40. 6. Grullon catheter associated MRSA and enterococcus urinary tract infection and bacteremia with sepsis Dr. Louis recommends daptomycin. Course completed. 7. CAD post CABG. continue aspirin 81 mg orally once every day, Lipitor 40 mg daily, Lopressor. 8. Diabetes mellitus type II with hyperglycemia secondary to steroids: Levemir has been added. Continue with NovoLog sliding scale. Patient has been off scheduled insulin due to hypoglycemia. 9. Hypertensive cardiovascular disease. Continue amlodipine 5 mg twice daily, hydralazine 100 mg 3 times daily, lisinopril 5 mg daily, lopressor 12.5 mg twice daily. 10. Hyperlipidemia: Continue statin. 11. Chronic A. fib. Patient is no longer on Coumadin. This may be related to risk of falls. 12. Recurrent depression: Continue Paxil. 13. Seizure history: Has been on Keppra 750 g twice a day with no new seizure activity. 14. Urinary retention with BPH: Patient has chronic Grullon catheter. Continue Flomax. 15. Severe GERD: Will add Protonix 40 mg daily 16. Severe protein calorie malnutrition due to lack of oral intake. Protein supplement. 17. Chronic low back pain. No change. Patient is off [place] Discharge plan: [facility] [place] on Tuesday Impression and plan of care have been directed as dictated by the signing physician. Carly Greene nurse practitioner acting as scribe for signing physician.
[2017-10-09 11:51] LABS: Glucose,Whole Blood 60 mg/dL (75-99)
[2017-10-09 12:11] LABS: Glucose,Whole Blood 91 mg/dL (75-99)
[2017-10-09 17:17] LABS: Glucose,Whole Blood 117 mg/dL (75-99)
[2017-10-09] MEDS: ACETAMINOPHEN TAB 500 MG TAB PO PRN (17:24)
[2017-10-09] MEDS: SODIUM CHLORIDE 0.9% 1,000 ML IV SCH (17:29)
[2017-10-09 20:16] LABS: Glucose,Whole Blood 159 mg/dL (75-99)
[2017-10-09] MEDS: MONTELUKAST 10 MG TAB PO SCH (22:03)
[2017-10-09] MEDS: MULTIVITAMINS, THERA 1 EACH TAB PO SCH (22:04)
--- NOTE | 2017-10-10 05:21 | PN ---
PROGRESS NOTE DATE OF SERVICE: 10/09/2017 REASON FOR FOLLOWUP: MRSA urinary tract infection with bacteremia. INTERVAL HISTORY: The patient is currently afebrile. He seemed to be breathing comfortably. Denies having any chest pain or any cough. No abdominal pain and no diarrhea. PHYSICAL EXAMINATION: On examination, blood pressure is 147/72, pulse of 94, temperature 98.3. He is 96% on 3 L nasal cannula. General description is an elderly male lying in bed in no distress. RESPIRATORY SYSTEM: Unlabored breathing, clear to auscultation anteriorly. HEART: S1, S2. Regular rate and rhythm. ABDOMEN: Soft, no tenderness. LABS: No new labs have been obtained today. DIAGNOSTIC IMPRESSION AND PLAN: Patient with methicillin-resistant Staphylococcus aureus urinary tract infection with secondary bacteremia treated. Repeat urine culture shows methicillin-resistant Staphylococcus aureus after one of the urine was negative and had to be restarted on daptomycin now the culture showing negative. We will wait for that to finalize. Repeat tomorrow. Continue supportive care. MMODL / IJN: [id number] /
[2017-10-10] MEDS: FORMOTEROL FUMARATE 20 MCG/2 ML NEBU INHALATION SCH ×2 (06:58→20:00)
[2017-10-10] MEDS: BUDESONIDE 1 MG/2 ML NEBU INHALATION SCH ×2 (06:58→19:49)
[2017-10-10] MEDS: IPRATROPIUM-ALBUTEROL 3 ML NEB INHALATION SCH ×4 (06:58→19:50)
[2017-10-10 07:09] LABS: Glucose,Whole Blood 152 mg/dL (75-99)
[2017-10-10 08:21] LABS: Calcium 7.4 mg/dL (8.4-10.2); Potassium 3.9 mmol/L (3.5-5.1)
--- NOTE | 2017-10-10 08:39 | P.DS ---
Providers Date of admission: 09/15/17 20:37 Expected date of discharge: 10/11/17 Attending physician: Boom Olguin Consults: 09/16/17 09:27 Consult Physician Routine Consulting Provider: Shreyas Carreno Consult Reason/Comments: chf Do you want consulting provider notified?: Yes Consult Physician Routine Consulting Provider: Alex Baron Consult Reason/Comments: chf, aspiration Do you want consulting provider notified?: Yes 09/17/17 09:13 Consult Physician Routine Consulting Provider: Reggie Louis Consult Reason/Comments: MRSA and positive blood Culture Do you want consulting provider notified?: Yes 09/22/17 08:45 Consult Physician Routine Consulting Provider: Gabriel Mcbride Consult Reason/Comments: LLUVIA Do you want consulting provider notified?: Yes 09/28/17 10:34 Consult Physician Routine Consulting Provider: Davon Cabello Consult Reason/Comments: HD cath Do you want consulting provider notified?: Yes Primary care physician: Janet Blackman [facility] Course: This is a 71-year-old male one of Dr. Lucas Gallo's patient with past medical history of hypertension, hyperlipidemia, diabetes, COPD, chronic systolic and possible diastolic heart failure, alcoholism, coronary artery disease and underwent CABG 2015 ended up having multiple complications and the multiple rehospitalization for worsening shortness of breath, A. fib and other complication. He has had several admissions over the past 2 months for recurrent metabolic encephalopathy with sepsis of possible aspiration pneumonia and urinary tract infection. He has been followed by Dr. Nicholas, Dr. Louis. Thought changes were possibly related to narcotic use. On recent admission in July patient did require intubation. He is currently residing at [facility] on the care of Dr. Blackman and most recent discharge was on September 05. Patient was brought in by EMS on September 14 to the emergency center due to mental status changes. Patient was treated with increased Lasix and [facility] the [facility] for CHF exacerbation. His vital signs were stable at that time , BUN 36 creatinine 2.08, normal white count. Troponin was negative. Patient return to [facility] emergency center on September 15 due to pulse ox of 80s, generalized weakness and decreased level of consciousness. Patient barely was placed on oxygen by EMS and became much more alert. Temperature max is 100.2, vital signs were otherwise stable. Initial pulse ox was 89%. EKG was atrial fibrillation controlled rate with T-wave inversion in the inferior leads. Patient was admitted to the selective care unit and consult placed with cardiology and pulmonary medicine. Patient's mentation appears to be back to his baseline. He is more alert and interactive today is feeling little bit better slightly decreased shortness of breath compared to before. Patient be seen cardiology still on diuretics whether can benefit from any further testing cardiac-hardwick are not is to be determined. Also patient has passed his swallow eval despite having aspiration pneumonia being treated for. 09/18/2017: Patient is doing much better is drinking his coffee this had his breakfast earlier. His microbiology came back positive for MRSA and enterococcus, patient is seen infectious disease was switched from vancomycin to daptomycin. 09/19: Patient is clinically doing much better surprisingly his chest x-ray came back more positive for low below pneumonia with multi-patchy area in the chest, still treated for UTI and aspiration pneumonia with the same antibiotics. Patient is interacting more and his acute mental status change reverse almost back to its baseline. 09/20: Patient has been followed by phone or medicine and cardiology. Cardiology has signed off and following as needed only. Dr. Louis is following for MRSA bacteremia likely urinary tract infection is the source. Grullon catheter has been exchanged. Plan is for patient to be on daptomycin for 2 weeks. Midline is to be placed today. Patient has been afebrile. Pulse ox 95 % on 6 L nasal cannula. Today, BUN 46, creatinine 2.94 potassium 5.4. Hemoglobin is stable at 8.9. Other electrolytes within normal limits and liver function tests within normal limits. Patient was started on Solu-Medrol 60 mg every 6 hours bipolar medicine yesterday. Blood sugars are running in the 200s.Solu-Medrol will be decreased to 40 mg every 8 hours. We'll plan for discharge tomorrow. 09/21: Pulse ox is 97% on 3 L nasal cannula. Renal function is worsening with BUN 61 and creatinine 3.65, hemoglobin 8.2. Plan is for renal function to be monitored at the [facility]. Patient denies any difficulty breathing. Patient is drowsy but answers questions appropriately and denies any new complaints. He denies any abdominal pain. No nausea or vomiting. Grullon catheter remains in place. Plan was for patient to be discharged to [facility] but insurance authorization was still pending. 09/22: Insurance authorization has been obtained but discharge is being held as patient's renal function has continued to climb and he is at a BUN of 75 and creatinine 3.99. Consult added for Dr. Mcbride. Lasix has been discontinued and patient started on IV fluids 0.9 normal saline at 75 mL per hour. Solu- Medrol will be decreased to 40 mg every 12 hours. Blood sugars have been running high for which Levemir 10 units daily added. Patient states that he is not feeling good today. He is not eating or drinking very much. He does have Glucerna. He states he has no appetite. 09/23: Patient sitting up in bed is feeling better today he denies any chest pain , is less short of breath, he continues to have Grullon catheter in place, we will postpone his discharge until Tuesday due to his acute kidney injury. 09/24: Total: Patient wanted to get up from bed, however he is recently , otherwise is comfortable, patient pulled out th midline last night, this would be reinserted for new midline and ordered for Tuesday, completed IV antibiotics daptomycin for MRSA bacteremia until October 02 by infectious disease, creatinine remains to be elevated at 4.7, and admitting creatinine of 2.5. With catheter draining clear, Grullon catheter remaining clear urine nephrology following., 09/25: Patient is comfortable today, however creatinine reached be high at 4.5 bun at 99. hyperkalemia 5.5 kayexelate 15 mg x 1 dose weekly Solu-Medrol and discontinue IV, oral prednisone 40the morning, midline IV access anticipated to be performed in the morning 09/26 creatinine remains higher with worsening of BUN, nephrology discussed hemodialysis, patient cannot make his own well-informed medical decision, KAIA is the youngest son, and I've spoken to him to make the final decision to assist with the father, and family members as well. The patient himself when inquired, does not want to be on dialysis, he wants his youngest son to assist, he would await family decision with KAIA next of kin [place] for final recommendation 09/27: Family undecided yet regarding renal replacement therapy, patient cannot fully understand the consequences and the indication for renal replacement therapy, patient states that if he could avoid it he would not go for dialysis however he also wants things that are for him.daughter at bedside, Chintan, updated regards to outcome,patient still remains severely azotemiaBUN of 105 creatinine 4.75 potassium 4.8 09/28: Patient and son wish to pursue hemodialysis. Dr. Cabello consult and patient will be transferred to ICU to do catheter placement and start dialysis. Dr. Tang to be updated. BUN is 104 and creatinine 4.41. Blood sugars are running in the 200s and 300s. Levemir dose increased. 09/29: Patient had dialysis catheter placement on the right from oral with Dr. Cabello and patient was transferred into the intensive care unit. He has been hemodynamically stable. Dr. Mcbride has ordered hemodialysis today and will be determined on a day-to-day basis. BUN is 106 and creatinine 4.1. Blood sugars remain elevated secondary to steroids. He is currently on prednisone 40 mg daily. Lantus was increased to 12 units yesterday. Cardiology has reduced the dose of Lopressor with parameters with dialysis. Patient will be transferred to the [facility] floor later today. Patient's mental status is alert and oriented today. Patient has been asking for items that on his diet and stating that he only has 6 months to live to his nurse. 09/30: Repeat BUN 79 and creatinine 3.17 after dialysis yesterday. Hemoglobin is 8.7. Awaiting determination from nephrology and patient will be re-dialyzed today and if he will need long-term at the [facility]. At this time, we are anticipate discharge back to [facility] on Tuesday. Patient continued to be confused at baseline mental status, tolerating diet, urine output continued to be at baseline. He to 40 mL/h and his Grullon catheter bag, patient seems to be comfortable in no acute distress and denying pain. 10/01: Patient continued to be confused at baseline mental status, tolerating diet , urine output continued to be at baseline. He to 40 mL/h and his Grullon catheter bag, patient seems to be comfortable in no acute distress and denying pain 10/02: Patient continued to be confused at baseline mental status, tolerating diet, urine output continued to be at baseline around 40 mL/h and his Grullon catheter bag, patient seems to be comfortable in no acute distress and denying pain. 10/03: Patient was given Lasix 100 mg IV yesterday. He is scheduled for hemodialysis of 3 L today. Awaiting determination from nephrology whether patient will be long-term dialysis and a chair time for him prior to discharge back to [facility]. Grullon catheter remains in place. No new complaints. 10/04: Nephrology is planning to continue hemodialysis and a later date this may be discontinued as an outpatient. Sodium bicarb has been discontinued. Dr. Louis has discontinued daptomycin as patient has completed his course of IV antibiotics for MRSA bacteremia. We are currently awaiting authorization from his insurance for dialysis and also for subacute rehab. Patient was given Lasix 40 mg this morning. Repeat chest x-ray ordered. 10/05: Patient will be placed on Lasix 40 mg orally every day. He is tentatively set up for hemodialysis on Tuesday. Dr. Tang will look at lab work in the morning and determine if patient will need ongoing hemodialysis. If he does not, patient will be discharged tomorrow morning. Otherwise, patient will need permanent dialysis catheter placed by Dr. Cabello. If this is necessary, patient most likely will have dialysis catheter placed on Tuesday and plan for discharge to ECF on Tuesday following dialysis. 10/06: Repeat labs showed BUN of 69 creatinine 2.69, hemoglobin 8.6 and white count 11.3. Electrolytes are within normal limits. Capillary blood glucose running anywhere between 158 and 300. We expect the patient's blood sugars will drop significantly since he is off prednisone. Levemir was discontinued yesterday and he is on NovoLog scale only. 10/07: She was seated up in a chair for a brief period this morning. His repeat BUN is 49 and creatinine 2.02. He remains with Grullon catheter in place. Dr. Cabello will perform permacath placement today or tomorrow and the groin catheter will be discontinued. Patient will then be on hemodialysis Tuesday, , Tuesday schedule. We anticipate discharge to ECF on Tuesday. There is a pending guardianship issue as son is to follow-up with paperwork to complete this. Social work is following 10/08: Dr. Cabello has placed a permanent right jugular dialysis catheter and removed his temporary catheter. BUN 15 creatinine 2.26. At this time we are planning for discharge on Tuesday back to his ECF. 10/09: Patient underwent hemodialysis yesterday. BUN is 34 and creatinine 1.80. Patient is still planned for discharge on Tuesday to rehab. No new complaints from the patient. He continues to have chest congestion and chest physiotherapy has been ordered. 10/10: Last evening, patient refused to take his medications. He states he just did not feel like taking them. 10/11: Repeat urine culture is showing enterococcus and MRCP. Grullon catheter was already changed but thought to be colonization by Dr. Louis and antibiotics have been discontinued as patient has not had fever or elevated white count. Repeat urine culture on October 07 is showing Serratia marcescens susceptible to only amikacin and tigecycline. Patient is continued on Aranesp and oral Lasix daily. He is to have hemodialysis today and plan for discharge to [facility] today in stable condition. Son has provided power of employment attorney papers to dialysis Center. Discharge diagnoses: 1. Acute hypoxic respiratory failure secondary to bilateral pleural effusions with bibasilar atelectasis due to acute on chronic diastolic heart failure. 2. Hypoxia encephalopathy most likely secondary to low pulse ox. 3. Pneumonia ruled out by pulmonary medicine. 4. Acute kidney injury with CKD stage III now on hemodialysis. 5. Arrhythmia history with prior Nonsustained ventricular tachycardia on 2015 H and was seen by cardiology echocardiogram October 2015 showed atrial fibrillation with small pericardial effusion noted ejection fraction 45-50% inferolateral hypokinesis with palpation of LA size over 40. 6. Grullon catheter associated MRSA and enterococcus urinary tract infection and bacteremia with sepsis. Antibiotic course completed. 7. CAD post CABG. 8. Diabetes mellitus type II with hyperglycemia secondary to steroids 9. Hypertensive cardiovascular disease. 10. Hyperlipidemia 11. Chronic A. fib. 12. Recurrent depression 13. Seizure history 14. Urinary retention with BPH with chronic Grullon catheter. 15. Severe GERD 16. Severe protein calorie malnutrition 17. Chronic low back pain. [facility] the care of Dr. Blackman Impression and plan of care have been directed as dictated by the signing physician. Carly Greene nurse practitioner acting as scribe for signing physician. Patient Condition at Discharge: Good Plan - Discharge Summary Discharge Rx Participant: Yes New Discharge Prescriptions: New Darbepoetin Luis [Aranesp] 40 mcg SQ Q7D syringe Furosemide [Lasix] 40 mg PO BID@0900,1600 tab hydrALAZINE HCL [Apresoline] 25 mg PO TID@0800,1200,1600 tab Nystatin 100,000Unit/gm Cream [Mycostatin Cream] 1 applic TOPICAL DAILY applic Triamcinolone 0.1% Cream [Kenalog] 1 applic TOPICAL DAILY applic Continue levETIRAcetam [Keppra] 750 mg PO BID Isosorbide Mononitrate ER [Imdur] 30 mg PO DAILY Atorvastatin [Lipitor] 40 mg PO HS Montelukast [Singulair] 10 mg PO HS Albuterol Inhaler [Ventolin Hfa Inhaler] 2 puff INHALATION RT-Q6H PRN PRN Reason: Shortness Of Breath Budesonide [Pulmicort] 0.5 mg INHALATION RT-BID Ipratropium-Albuterol Nebulize [Duoneb 0.5 mg-3 mg/3 ml Soln] 3 ml INHALATION RT-QID@08,12,16,20 Nitroglycerin Sl Tabs [Nitrostat] 0.4 mg SUBLINGUAL Q5M PRN PRN Reason: Chest Pain PARoxetine [Paxil] 10 mg PO DAILY tab Metoprolol Tartrate [Lopressor] 12.5 mg PO BID Multivitamins, Thera [Multivitamin (formulary)] 1 tab PO HS Formoterol Fumarate [Perforomist] 20 mcg INHALATION RT-BID nebu Clotrimazole/Betamethasone Dip [Lotrisone Cream] 1 applic TOPICAL BID Ipratropium-Albuterol Nebulize [Duoneb 0.5 mg-3 mg/3 ml Soln] 3 ml INHALATION RT-Q6H PRN PRN Reason: Shortness Of Breath Or Wheezing Tamsulosin [Flomax] 0.4 mg PO BID Insulin Aspart [NovoLOG (formulary)] See Protocol SQ ACHS #0 Changed Omeprazole [PriLOSEC] 20 mg PO DAILY #0 Discontinued Potassium Chloride ER [K-Dur 20] 20 meq PO HS Sodium Bicarbonate Tab 650 mg PO BID tab hydrALAZINE HCL [Apresoline] 100 mg PO TID@08,12,16 Lisinopril [Zestril] 5 mg PO DAILY Prostat Sugar Free 30 ml PO BID Moxifloxacin HCl [Avelox] 400 mg PO DAILY #10 tablet amLODIPine [Norvasc] 5 mg PO BID #0 tab Furosemide [Lasix] 80 mg PO BID HYDROcodone/APAP 5-325MG [Oxford 5-325] 1 tab PO Q8H PRN PRN Reason: Pain Furosemide [Lasix] 80 mg PO Q8HR #10 tablet Discharge Medication List Isosorbide Mononitrate ER [Imdur] 30 mg PO DAILY 04/26/14 [History] levETIRAcetam [Keppra] 750 mg PO BID 04/26/14 [History] Atorvastatin [Lipitor] 40 mg PO HS 06/14/14 [History] Montelukast [Singulair] 10 mg PO HS 06/16/16 [History] Albuterol Inhaler [Ventolin Hfa Inhaler] 2 puff INHALATION RT-Q6H PRN 08/11/17 [ History] Budesonide [Pulmicort] 0.5 mg INHALATION RT-BID 08/11/17 [History] Ipratropium-Albuterol Nebulize [Duoneb 0.5 mg-3 mg/3 ml Soln] 3 ml INHALATION RT -QID@08,12,16,20 08/11/17 [History] Nitroglycerin Sl Tabs [Nitrostat] 0.4 mg SUBLINGUAL Q5M PRN 08/11/17 [History] PARoxetine [Paxil] 10 mg PO DAILY tab 08/26/17 [Rx] Metoprolol Tartrate [Lopressor] 12.5 mg PO BID 08/31/17 [History] Multivitamins, Thera [Multivitamin (formulary)] 1 tab PO HS 08/31/17 [History] Formoterol Fumarate [Perforomist] 20 mcg INHALATION RT-BID nebu 09/02/17 [Rx] Clotrimazole/Betamethasone Dip [Lotrisone Cream] 1 applic TOPICAL BID 09/14/17 [ History] Ipratropium-Albuterol Nebulize [Duoneb 0.5 mg-3 mg/3 ml Soln] 3 ml INHALATION RT -Q6H PRN 09/14/17 [History] Tamsulosin [Flomax] 0.4 mg PO BID 09/14/17 [History] Insulin Aspart [NovoLOG (formulary)] See Protocol SQ ACHS #0 09/21/17 [Rx] Omeprazole [PriLOSEC] 20 mg PO DAILY #0 09/21/17 [Rx] Darbepoetin Luis [Aranesp] 40 mcg SQ Q7D syringe 10/11/17 [Rx] Furosemide [Lasix] 40 mg PO BID@0900,1600 tab 10/11/17 [Rx] Nystatin 100,000Unit/gm Cream [Mycostatin Cream] 1 applic TOPICAL DAILY applic 10/11/17 [Rx] Triamcinolone 0.1% Cream [Kenalog] 1 applic TOPICAL DAILY applic 10/11/17 [Rx] hydrALAZINE HCL [Apresoline] 25 mg PO TID@0800,1200,1600 tab 10/11/17 [Rx] Follow up Appointment(s)/Referral(s): Janet Blackman MD [Primary Care Provider] - 1 Week (at [facility]) Ambulatory/Diagnostic Orders: Complete Blood Count w/diff [LAB.AMB] Location: Determined By Patient Comprehensive Metabolic Panel [LAB.AMB] Location: Determined By Patient Magnesium [LAB.AMB] Location: Determined By Patient Patient Instructions/Handouts: MRSA (Methicillin-Resistant Staphylococcus Aureus) (DC), Urinary Tract Infection in Men (DC) Activity/Diet/Wound Care/Special Instructions: PH Medi on D/C. pt chair time for dialysis is Tuesday, Tuesday, and Tuesday at 3:30pm when pt goes to his dialysis make sure that he is wearing shorts so that staff can access the pt femoral cath. Discharge Disposition: TRANSFER TO SNF/ECF
[2017-10-10] MEDS: PARoxetine 10 MG TAB PO SCH (08:41)
[2017-10-10] MEDS: TAMSULOSIN 0.4 MG CAP.ER.24H PO SCH ×2 (08:41→22:27)
[2017-10-10] MEDS: INSULIN ASPART 100 UNIT/ML 1 ML 10 ML VIAL SQ SCH ×4 (08:41→22:28)
[2017-10-10] MEDS: HEPARIN SODIUM,PORCINE 5,000 UNIT/ML 1 ML VIAL SQ SCH ×2 (08:42→15:45)
[2017-10-10] MEDS: METOPROLOL TARTRATE 12.5 MG TAB PO SCH ×2 (08:42→22:27)
[2017-10-10] MEDS: FLUCONAZOLE 100 MG TAB PO SCH (08:42)
[2017-10-10] MEDS: PANTOPRAZOLE 40 MG TABLET PO SCH (08:42)
[2017-10-10] MEDS: FUROSEMIDE 40 MG TAB PO SCH ×2 (08:42→15:45)
[2017-10-10] MEDS: ISOSORBIDE MONONITRATE ER 30 MG TAB.ER.24H PO SCH (08:42)
[2017-10-10] MEDS: hydrALAZINE HCL 25 MG TAB PO SCH ×3 (08:42→15:45)
[2017-10-10] MEDS: TRIAMCINOLONE 0.1% CREAM 80 GM TUBE TOPICAL SCH (08:43)
[2017-10-10] MEDS: NYSTATIN 100,000UNIT/GM CREAM 30 GM TUBE TOPICAL SCH (08:43)
[2017-10-10 11:43] LABS: Glucose,Whole Blood 156 mg/dL (75-99)
--- NOTE | 2017-10-10 13:11 | P.PN ---
Subjective Progress Note Date: 10/10/17 This is a 71-year-old male one of Dr. Lucas Gallo's patient with past medical history of hypertension, hyperlipidemia, diabetes, COPD, chronic systolic and possible diastolic heart failure, alcoholism, coronary artery disease and underwent CABG 2015 ended up having multiple complications and the multiple rehospitalization for worsening shortness of breath, A. fib and other complication. He has had several admissions over the past 2 months for recurrent metabolic encephalopathy with sepsis of possible aspiration pneumonia and urinary tract infection. He has been followed by Dr. Nicholas, Dr. Louis. Thought changes were possibly related to narcotic use. On recent admission in July patient did require intubation. He is currently residing at [facility] on the care of Dr. Blackman and most recent discharge was on September 05. Patient was brought in by EMS on September 14 to the emergency center due to mental status changes. Patient was treated with increased Lasix and return to the half-way for CHF exacerbation. His vital signs were stable at that time , BUN 36 creatinine 2.08, normal white count. Troponin was negative. Patient return to [facility] emergency center on September 15 due to pulse ox of 80s, generalized weakness and decreased level of consciousness. Patient barely was placed on oxygen by EMS and became much more alert. Temperature max is 100.2, vital signs were otherwise stable. Initial pulse ox was 89%. EKG was atrial fibrillation controlled rate with T-wave inversion in the inferior leads. Patient was admitted to the selective care unit and consult placed with cardiology and pulmonary medicine. Patient's mentation appears to be back to his baseline. He is more alert and interactive today is feeling little bit better slightly decreased shortness of breath compared to before. Patient be seen cardiology still on diuretics whether can benefit from any further testing cardiac-hardwick are not is to be determined. Also patient has passed his swallow eval despite having aspiration pneumonia being treated for. 09/18/2017: Patient is doing much better is drinking his coffee this had his breakfast earlier. His microbiology came back positive for MRSA and enterococcus, patient is seen infectious disease was switched from vancomycin to daptomycin. 09/19: Patient is clinically doing much better surprisingly his chest x-ray came back more positive for low below pneumonia with multi-patchy area in the chest, still treated for UTI and aspiration pneumonia with the same antibiotics. Patient is interacting more and his acute mental status change reverse almost back to its baseline. 09/20: Patient has been followed by phone or medicine and cardiology. Cardiology has signed off and following as needed only. Dr. Louis is following for MRSA bacteremia likely urinary tract infection is the source. Grullon catheter has been exchanged. Plan is for patient to be on daptomycin for 2 weeks. Midline is to be placed today. Patient has been afebrile. Pulse ox 95 % on 6 L nasal cannula. Today, BUN 46, creatinine 2.94 potassium 5.4. Hemoglobin is stable at 8.9. Other electrolytes within normal limits and liver function tests within normal limits. Patient was started on Solu-Medrol 60 mg every 6 hours bipolar medicine yesterday. Blood sugars are running in the 200s.Solu-Medrol will be decreased to 40 mg every 8 hours. We'll plan for discharge tomorrow. 09/21: Pulse ox is 97% on 3 L nasal cannula. Renal function is worsening with BUN 61 and creatinine 3.65, hemoglobin 8.2. Plan is for renal function to be monitored at the half-way. Patient denies any difficulty breathing. Patient is drowsy but answers questions appropriately and denies any new complaints. He denies any abdominal pain. No nausea or vomiting. Grullon catheter remains in place. Plan was for patient to be discharged to [facility] but insurance authorization was still pending. 09/22: Insurance authorization has been obtained but discharge is being held as patient's renal function has continued to climb and he is at a BUN of 75 and creatinine 3.99. Consult added for Dr. Mcbride. Lasix has been discontinued and patient started on IV fluids 0.9 normal saline at 75 mL per hour. Solu- Medrol will be decreased to 40 mg every 12 hours. Blood sugars have been running high for which Levemir 10 units daily added. Patient states that he is not feeling good today. He is not eating or drinking very much. He does have Glucerna. He states he has no appetite. 09/23: Patient sitting up in bed is feeling better today he denies any chest pain , is less short of breath, he continues to have Grullon catheter in place, we will postpone his discharge until Tuesday due to his acute kidney injury. 09/24: Total: Patient wanted to get up from bed, however he is recently , otherwise is comfortable, patient pulled out th midline last night, this would be reinserted for new midline and ordered for Tuesday, completed IV antibiotics daptomycin for MRSA bacteremia until October 02 by infectious disease, creatinine remains to be elevated at 4.7, and admitting creatinine of 2.5. With catheter draining clear, Grullon catheter remaining clear urine nephrology following., 09/25: Patient is comfortable today, however creatinine reached be high at 4.5 bun at 99. hyperkalemia 5.5 kayexelate 15 mg x 1 dose weekly Solu-Medrol and discontinue IV, oral prednisone 40the morning, midline IV access anticipated to be performed in the morning 09/26 creatinine remains higher with worsening of BUN, nephrology discussed hemodialysis, patient cannot make his own well-informed medical decision, KAIA is the youngest son, and I've spoken to him to make the final decision to assist with the father, and family members as well. The patient himself when inquired, does not want to be on dialysis, he wants his youngest son to assist, he would await family decision with KAIA next of kin [place] for final recommendation 09/27: Family undecided yet regarding renal replacement therapy, patient cannot fully understand the consequences and the indication for renal replacement therapy, patient states that if he could avoid it he would not go for dialysis however he also wants things that are for him.daughter at bedside, Chintan, updated regards to outcome,patient still remains severely azotemiaBUN of 105 creatinine 4.75 potassium 4.8 09/28: Patient and son wish to pursue hemodialysis. Dr. Cabello consult and patient will be transferred to ICU to do catheter placement and start dialysis. Dr. Tang to be updated. BUN is 104 and creatinine 4.41. Blood sugars are running in the 200s and 300s. Levemir dose increased. 09/29: Patient had dialysis catheter placement on the right from oral with Dr. Cabello and patient was transferred into the intensive care unit. He has been hemodynamically stable. Dr. Mcbride has ordered hemodialysis today and will be determined on a day-to-day basis. BUN is 106 and creatinine 4.1. Blood sugars remain elevated secondary to steroids. He is currently on prednisone 40 mg daily. Lantus was increased to 12 units yesterday. Cardiology has reduced the dose of Lopressor with parameters with dialysis. Patient will be transferred to the [facility] floor later today. Patient's mental status is alert and oriented today. Patient has been asking for items that on his diet and stating that he only has 6 months to live to his nurse. 09/30: Repeat BUN 79 and creatinine 3.17 after dialysis yesterday. Hemoglobin is 8.7. Awaiting determination from nephrology and patient will be re-dialyzed today and if he will need long-term at the half-way. At this time, we are anticipate discharge back to [facility] on Tuesday. Patient continued to be confused at baseline mental status, tolerating diet, urine output continued to be at baseline. He to 40 mL/h and his Grullon catheter bag, patient seems to be comfortable in no acute distress and denying pain. 10/01: Patient continued to be confused at baseline mental status, tolerating diet , urine output continued to be at baseline. He to 40 mL/h and his Grullon catheter bag, patient seems to be comfortable in no acute distress and denying pain 10/02: Patient continued to be confused at baseline mental status, tolerating diet, urine output continued to be at baseline around 40 mL/h and his Grullon catheter bag, patient seems to be comfortable in no acute distress and denying pain. 10/03: Patient was given Lasix 100 mg IV yesterday. He is scheduled for hemodialysis of 3 L today. Awaiting determination from nephrology whether patient will be long-term dialysis and a chair time for him prior to discharge back to [facility]. Grullon catheter remains in place. No new complaints. 10/04: Nephrology is planning to continue hemodialysis and a later date this may be discontinued as an outpatient. Sodium bicarb has been discontinued. Dr. Louis has discontinued daptomycin as patient has completed his course of IV antibiotics for MRSA bacteremia. We are currently awaiting authorization from his insurance for dialysis and also for subacute rehab. Patient was given Lasix 40 mg this morning. Repeat chest x-ray ordered. 10/05: Patient will be placed on Lasix 40 mg orally every day. He is tentatively set up for hemodialysis on Tuesday. Dr. Tang will look at lab work in the morning and determine if patient will need ongoing hemodialysis. If he does not, patient will be discharged tomorrow morning. Otherwise, patient will need permanent dialysis catheter placed by Dr. Cabello. If this is necessary, patient most likely will have dialysis catheter placed on Tuesday and plan for discharge to ECF on Tuesday following dialysis. 10/06: Repeat labs showed BUN of 69 creatinine 2.69, hemoglobin 8.6 and white count 11.3. Electrolytes are within normal limits. Capillary blood glucose running anywhere between 158 and 300. We expect the patient's blood sugars will drop significantly since he is off prednisone. Levemir was discontinued yesterday and he is on NovoLog scale only. Patient will need to continue on hemodialysis. Dr. Cabello will put in a dialysis catheter either on Tuesday or Tuesday. This may delay are discharged to half-way until Tuesday. Patient's son is working on POA which needs to be in place for hemodialysis. 10/07: She was seated up in a chair for a brief period this morning. His repeat BUN is 49 and creatinine 2.02. He remains with Grullon catheter in place. Dr. Cabello will perform permacath placement today or tomorrow and the groin catheter will be discontinued. Patient will then be on hemodialysis Tuesday, , Tuesday schedule. We anticipate discharge to ECF on Tuesday. There is a pending guardianship issue as son is to follow-up with paperwork to complete this. Social work is following 10/08: Dr. Cabello has placed a permanent right jugular dialysis catheter and removed his temporary catheter. BUN 15 creatinine 2.26. At this time we are planning for discharge on Tuesday back to his ECF. 10/09: Patient underwent hemodialysis yesterday. BUN is 34 and creatinine 1.80. Patient is still planned for discharge on Tuesday to rehab. No new complaints from the patient. He continues to have chest congestion and chest physiotherapy has been ordered. 10/10: Last evening, patient refused to take his medications. He states he just did not feel like taking them. Sodium is 136, BUN 39 creatinine 2.07. His son has failed to follow up with field nurse case manager and high school social studies teacher to resolve guardianship issue in order for him to be discharged. Patient has been resumed back on daptomycin by Dr. Louis. Repeat urine culture is showing gram-negative bacilli. Patient has had his Grullon catheter changed. Objective - Vital Signs Vital signs: Vital Signs Temp 98 F 10/10/17 05:00 Pulse 80 10/10/17 11:00 Resp 16 10/10/17 08:20 BP 152/65 10/10/17 05:00 Pulse Ox 92 L 10/10/17 05:00 Intake & Output 10/09/17 10/10/17 10/10/17 18:59 06:59 18:59 Intake Total 120 115 Output Total 1862 1 1 Balance -1741 114 -1 Weight 69 kg Intake: IV 115 0.9 115 Oral 120 Output: Urine 1860 Uretheral (Grullon) 700 Stool 2 1 1 Other: Voiding Method Indwelling Catheter Indwelling Catheter Indwelling Catheter - Exam General appearance: Present: cooperative, disheveled, no acute distress. Absent : average body habitus, mild distress, morbidly obese, obese, severe distress, thin - EENT Eyes: Present: normal appearance. Absent: abnormal pupil, anicteric sclerae, disc margins sharp, edentulous, EOMI, PERRLA, fundus normal, photophobia, dentition normal, poor dentition, ptosis, scleral icterus ENT: Present: hard of hearing, pharyngeal erythema. Absent: hearing grossly normal, NA/AT, normal oropharynx, other, thrush, tonsillar exudates, tonsillar swelling Ears: bilateral: normal - Neck Neck: Present: normal ROM. Absent: lymphadenopathy, other, rigidity, stridor, thyromegaly Carotids: bilateral: upstroke normal, upstroke delayed Thyroid: bilateral: normal size - Respiratory Respiratory: bilateral: CTA, diminished, dullness, rales, rhonchi - Cardiovascular Rhythm: regular Heart sounds: normal: S1, S2 Abnormal Heart Sounds: Present: systolic murmur, S3 Gallop - Gastrointestinal General gastrointestinal: Present: decreased bowel sounds, distended, normal bowel sounds, soft. Absent: absent bowel sounds, hepatomegaly, hyperactive bowel sounds, organomegaly, rigid, scaphoid, splenomegaly, tenderness, umbilical hernia, ventral hernia - Integumentary Integumentary: Present: normal, pale, rash. Absent: calor, cellulitis, cyanotic , decreased turgor, flushed, jaundiced, normal turgor, ulcer - Neurologic Neurologic: Present: CNII-XII intact - Musculoskeletal Musculoskeletal: Present: generalized weakness, strength equal bilaterally. Absent: gait normal, right sided weakness, left sided weakness - Psychiatric Psychiatric: A&O x's 2, no appropriate affect, no intact judgment & insight - Labs CBC & Chem 7: 10/08/17 06:53 10/10/17 07:02 Labs: Abnormal Lab Results - Last 24 Hours (Table) 10/09/17 10/09/17 10/10/17 Range/Units 17:10 20:01 07:02 Sodium 136 L (137-145) mmol/L BUN 39 H (9-20) mg/dL Creatinine 2.07 H (0.66-1.25) mg/dL Glucose 129 H (74-99) mg/dL POC Glucose (mg/dL) 117 H 159 H (75-99) mg/dL Calcium 7.4 L (8.4-10.2) mg/dL 10/10/17 10/10/17 Range/Units 07:07 11:42 Sodium (137-145) mmol/L BUN (9-20) mg/dL Creatinine (0.66-1.25) mg/dL Glucose (74-99) mg/dL POC Glucose (mg/dL) 152 H 156 H (75-99) mg/dL Calcium (8.4-10.2) mg/dL Assessment and Plan Plan: 1. Acute hypoxic respiratory failure secondary to bilateral pleural effusions with bibasilar atelectasis due to acute on chronic diastolic heart failure. Pulmonary medicine has ruled out pneumonia. Lasix 40 mg orally daily. Chest physiotherapy ordered 2. Hypoxia encephalopathy most likely secondary to low pulse ox. Patient's mentation improved with oxygen therapy. Continue as in #1., Has improved from the last 48 hours. 3. Pneumonia ruled out by pulmonary medicine. 4. Acute kidney injury with CKD stage III with recent acute failure secondary to ATN secondary to sepsis. Consult with Dr. Mcbride is appreciated. Patient on dialysis treatment. Permanent dialysis catheter placed placed by Dr. Cabello 5. Arrhythmia history with prior Nonsustained ventricular tachycardia on 2015 H and was seen by cardiology echocardiogramJuly 2016 showed atrial fibrillation with small pericardial effusion noted ejection fraction 45-50% inferolateral hypokinesis with palpation of LA size over 40. 6. Grullon catheter associated MRSA and enterococcus urinary tract infection and bacteremia with sepsis Dr. Louis recommends daptomycin for second course. 7. CAD post CABG. continue aspirin 81 mg orally once every day, Lipitor 40 mg daily, Lopressor. 8. Diabetes mellitus type II with hyperglycemia secondary to steroids: Levemir has been added. Continue with NovoLog sliding scale. Patient has been off scheduled insulin due to hypoglycemia. 9. Hypertensive cardiovascular disease. Continue amlodipine 5 mg twice daily, hydralazine 100 mg 3 times daily, lisinopril 5 mg daily, lopressor 12.5 mg twice daily. 10. Hyperlipidemia: Continue statin. 11. Chronic A. fib. Patient is no longer on Coumadin. This may be related to risk of falls. 12. Recurrent depression: Continue Paxil. 13. Seizure history: Has been on Keppra 750 g twice a day with no new seizure activity. 14. Urinary retention with BPH: Patient has chronic Grullon catheter. Continue Flomax. 15. Severe GERD: Will add Protonix 40 mg daily 16. Severe protein calorie malnutrition due to lack of oral intake. Protein supplement. 17. Chronic low back pain. No change. Patient is off Printer Discharge plan: [facility] on Tuesday Impression and plan of care have been directed as dictated by the signing physician. Carly Greene nurse practitioner acting as scribe for signing physician.
--- NOTE | 2017-10-10 14:02 | IR ---
EXAMINATION TYPE: IR cvc insert central tunneled DATE OF EXAM: 10/07/2017 COMPARISON: NONE HISTORY: Peripheral vascular occlusive disease. Fluoroscopy was provided to the referring clinician. 0.5 minutes of fluoroscopy provided..
--- NOTE | 2017-10-10 14:55 | PN ---
PROGRESS NOTE Patient is seen for followup for acute kidney injury. He remains hemodialysis dependent. His creatinine is a little low, however, it continues to rise without dialysis. The patient will be scheduled for hemodialysis tomorrow. He has had fairly good urine output. The patient is maintained on Lasix 40 mg p.o. b.i.d. He has a chair time for outpatient hemodialysis treatments. PHYSICAL EXAMINATION: Blood pressure is 152/65, heart rate 88 per minute. Patient is afebrile. Examination of the heart S1, S2. Examination of the lungs bilateral breath sounds are heard. Abdomen is soft, nontender. Examination of the lower extremities shows no significant edema. IT NETWORK ARCHITECT exam is grossly intact. LAB: Show sodium 136, potassium 3.9, calcium 7.4. ASSESSMENT: 1. Acute kidney injury acute tubular necrosis, currently hemodialysis dependent. We will arrange for hemodialysis in a.m. 2. Methicillin-resistant Staphylococcus aureus bacteremia. 3. Urinary tract infection with Methicillin-resistant Staphylococcus aureus and enterococcus faecalis and another urine culture grew gram-negative bacilli on 10/07/2017. PLAN: Antibiotics as per ID. Continue with the Aranesp. Continue with current dose of Lasix and we will arrange for hemodialysis in a.m. Continue to encourage increased oral intake. MMODL / IJN: [id number] /
[2017-10-10] MEDS: SODIUM CHLORIDE 0.9% 1,000 ML IV SCH (15:43)
[2017-10-10 17:29] LABS: Glucose,Whole Blood 143 mg/dL (75-99)
[2017-10-10 20:18] LABS: Glucose,Whole Blood 170 mg/dL (75-99)
[2017-10-10] MEDS: MONTELUKAST 10 MG TAB PO SCH (22:28)
[2017-10-10] MEDS: MULTIVITAMINS, THERA 1 EACH TAB PO SCH (22:28)
--- NOTE | 2017-10-11 00:33 | PN ---
PROGRESS NOTE DATE OF SERVICE: 10/10/2017 REASON FOR FOLLOWUP VISIT: UTI and bacteremia. INTERVAL HISTORY: The patient is afebrile. She is breathing comfortably. Denies significant chest pain or cough. No abdominal pain or any diarrhea. EXAMINATION: Blood pressure is 154/70 with a pulse of 87, temperature 98.6. He is 97% on 3 L nasal cannula. General description is a young female lying in bed in no distress. RESPIRATORY SYSTEM: Unlabored breathing, clear to auscultation anteriorly. HEART: S1, S2. Regular rate and rhythm. ABDOMEN: Soft, no tenderness. LABS: BUN of 39, creatinine 2.27. Repeat urine now showing Serratia marcescens, which is multidrug resistant. DIAGNOSTIC IMPRESSION AND PLAN: Patient with MRSA bacteremia secondary to urinary source that has been adequately treated. Repeat urine was showing some enterococcus and MRC after one of the urine culture coming back negative. His Grullon was changed and repeat urine was obtained, which is now showing , which is multidrug resistant pathogen sensitive to doxycycline; however, still could not achieve good concentration in the urine liver and could be more likely presenting possible colonization of the Grullon and the patient is currently not running any fever and his white count has normalized previously. We will go ahead and discontinue his antibiotic and watch this patient closely off any further antibiotic therapy at this point. If changes clinical condition with fever or any jump in white count, we will have to do culture before starting him on antibiotics. Overall prognosis remains to be guarded. Continue supportive care. LINUSL / IJN: [id number] /
[2017-10-11] MEDS: HEPARIN SODIUM,PORCINE 5,000 UNIT/ML 1 ML VIAL SQ SCH ×4 (01:14→23:19)
[2017-10-11] MEDS: BUDESONIDE 1 MG/2 ML NEBU INHALATION SCH ×2 (06:57→19:03)
[2017-10-11] MEDS: IPRATROPIUM-ALBUTEROL 3 ML NEB INHALATION SCH ×4 (06:57→19:03)
[2017-10-11] MEDS: FORMOTEROL FUMARATE 20 MCG/2 ML NEBU INHALATION SCH ×2 (06:57→19:03)
[2017-10-11 07:02] LABS: Glucose,Whole Blood 214 mg/dL (75-99)
[2017-10-11] MEDS: PARoxetine 10 MG TAB PO SCH (08:20)
[2017-10-11] MEDS: ISOSORBIDE MONONITRATE ER 30 MG TAB.ER.24H PO SCH (08:20)
[2017-10-11] MEDS: FUROSEMIDE 40 MG TAB PO SCH ×2 (08:20→15:48)
[2017-10-11] MEDS: hydrALAZINE HCL 25 MG TAB PO SCH ×3 (08:20→15:48)
[2017-10-11] MEDS: TAMSULOSIN 0.4 MG CAP.ER.24H PO SCH ×2 (08:20→20:46)
[2017-10-11] MEDS: METOPROLOL TARTRATE 12.5 MG TAB PO SCH ×2 (08:21→20:46)
[2017-10-11] MEDS: PANTOPRAZOLE 40 MG TABLET PO SCH (08:21)
[2017-10-11] MEDS: INSULIN ASPART 100 UNIT/ML 1 ML 10 ML VIAL SQ SCH ×4 (08:21→20:46)
[2017-10-11] MEDS: NYSTATIN 100,000UNIT/GM CREAM 30 GM TUBE TOPICAL SCH (08:24)
[2017-10-11] MEDS: TRIAMCINOLONE 0.1% CREAM 80 GM TUBE TOPICAL SCH (08:24)
[2017-10-11 08:54] LABS: Anisocytosis Slight; Basophils % (A) 0 %; Eosinophils # (A) 0.1 k/uL (0-0.7); Eosinophils % (A) 1 %; HCT 23.9 % (39.0-53.0); HGB 7.4 gm/dL (13.0-17.5); Hypochromasia Moderate; Lymphocytes # (A) 0.6 k/uL (1.0-4.8); Lymphocytes % (A) 5 %; MCH 28.6 pg (25.0-35.0); MCV 92.3 fL (80.0-100.0); Monocytes # (A) 0.5 k/uL (0-1.0); Monocytes % (A) 4 %; Neutrophils # (A) 11.1 k/uL (1.3-7.7); Neutrophils % (A) 88 %; RBC 2.59 m/uL (4.30-5.90); RDW 16.6 % (11.5-15.5); WBC 12.5 k/uL (3.8-10.6)
[2017-10-11] MEDS: SODIUM CHLORIDE 0.9% 1,000 ML IV SCH (10:41)
[2017-10-11 10:55] LABS: Ovalocytes Present; Platelet Count 79 k/uL (150-450); Poikilocytosis (M) Present
[2017-10-11 11:44] LABS: Glucose,Whole Blood 159 mg/dL (75-99)
[2017-10-11 12:12] VITALS: BMI 21.9
--- NOTE | 2017-10-11 14:44 | PN ---
PROGRESS NOTE Patient is seen on hemodialysis. He is tolerating his treatment well. He denies any complaints. Blood pressure this morning was 137/75, heart rate 98 per minute. He is afebrile. Examination shows no evidence of edema in the lower extremities. His IJ PermCath is working well. No abdominal pain noted. The patient continues to have indwelling Grullon catheter. He has good urine output of about 2.3 L over 24 hours. On examination, blood pressure is 127/75, heart rate 98 per minute. Patient is afebrile. HEENT: Atraumatic, normocephalic. Pupils are equal, round, JVP is not elevated. Lymph nodes not palpable. The thyroid is not enlarged. Examination of the heart S1 and S2. Lungs decreased breath sounds at the bases. Abdomen is soft, nontender. Exam of lower extremities shows no evidence of edema. ACCOUNT SUPPORT REP exam is grossly intact. LABS: Sodium of 136 from yesterday. Hemoglobin this morning was 7.4 g/dL. ASSESSMENT: 1. Acute kidney injury, currently hemodialysis dependent. Patient has good urine output. His creatinine, however, continues to climb without dialysis. We will continue to monitor for recovery of renal function as outpatient. We will continue with the dialysis for now. 2. Anemia. No active bleeding noted. Maintained on Aranesp. The patient is status post IV iron. 3. Volume overload, currently improved. 4. Hypertension. Blood pressure is improved. Continue current medications. 5. Urinary tract infection from Methicillin-resistant Staphylococcus aureus and Enterococcus faecalis and repeat culture from a few days ago shows Serratia marcescens. PLAN: Continue antibiotics. Continue to maintain patient on hemodialysis and follow up as outpatient. MMODL / IJN: [id number] /
--- NOTE | 2017-10-11 16:21 | P.PN ---
Subjective Progress Note Date: 10/11/17 This is a 71-year-old male one of Dr. Lucas Gallo's patient with past medical history of hypertension, hyperlipidemia, diabetes, COPD, chronic systolic and possible diastolic heart failure, alcoholism, coronary artery disease and underwent CABG 2015 ended up having multiple complications and the multiple rehospitalization for worsening shortness of breath, A. fib and other complication. He has had several admissions over the past 2 months for recurrent metabolic encephalopathy with sepsis of possible aspiration pneumonia and urinary tract infection. He has been followed by Dr. Nicholas, Dr. Louis. Thought changes were possibly related to narcotic use. On recent admission in July patient did require intubation. He is currently residing at [facility] on the care of Dr. Blackman and most recent discharge was on September 05. Patient was brought in by EMS on September 14 to the emergency center due to mental status changes. Patient was treated with increased Lasix and return to the custodial for CHF exacerbation. His vital signs were stable at that time , BUN 36 creatinine 2.08, normal white count. Troponin was negative. Patient return to [facility] emergency center on September 15 due to pulse ox of 80s, generalized weakness and decreased level of consciousness. Patient barely was placed on oxygen by EMS and became much more alert. Temperature max is 100.2, vital signs were otherwise stable. Initial pulse ox was 89%. EKG was atrial fibrillation controlled rate with T-wave inversion in the inferior leads. Patient was admitted to the selective care unit and consult placed with cardiology and pulmonary medicine. Patient's mentation appears to be back to his baseline. He is more alert and interactive today is feeling little bit better slightly decreased shortness of breath compared to before. Patient be seen cardiology still on diuretics whether can benefit from any further testing cardiac-hardwick are not is to be determined. Also patient has passed his swallow eval despite having aspiration pneumonia being treated for. 09/18/2017: Patient is doing much better is drinking his coffee this had his breakfast earlier. His microbiology came back positive for MRSA and enterococcus, patient is seen infectious disease was switched from vancomycin to daptomycin. 09/19: Patient is clinically doing much better surprisingly his chest x-ray came back more positive for low below pneumonia with multi-patchy area in the chest, still treated for UTI and aspiration pneumonia with the same antibiotics. Patient is interacting more and his acute mental status change reverse almost back to its baseline. 09/20: Patient has been followed by phone or medicine and cardiology. Cardiology has signed off and following as needed only. Dr. Louis is following for MRSA bacteremia likely urinary tract infection is the source. Grullon catheter has been exchanged. Plan is for patient to be on daptomycin for 2 weeks. Midline is to be placed today. Patient has been afebrile. Pulse ox 95 % on 6 L nasal cannula. Today, BUN 46, creatinine 2.94 potassium 5.4. Hemoglobin is stable at 8.9. Other electrolytes within normal limits and liver function tests within normal limits. Patient was started on Solu-Medrol 60 mg every 6 hours bipolar medicine yesterday. Blood sugars are running in the 200s.Solu-Medrol will be decreased to 40 mg every 8 hours. We'll plan for discharge tomorrow. 09/21: Pulse ox is 97% on 3 L nasal cannula. Renal function is worsening with BUN 61 and creatinine 3.65, hemoglobin 8.2. Plan is for renal function to be monitored at the custodial. Patient denies any difficulty breathing. Patient is drowsy but answers questions appropriately and denies any new complaints. He denies any abdominal pain. No nausea or vomiting. Grullon catheter remains in place. Plan was for patient to be [facility] to [facility] but insurance authorization was still pending. 09/22: Insurance authorization has been obtained but discharge is being held as patient's renal function has continued to climb and he is at a BUN of 75 and creatinine 3.99. Consult added for Dr. Mcbride. Lasix has been discontinued and patient started on IV fluids 0.9 normal saline at 75 mL per hour. Solu- Medrol will be decreased to 40 mg every 12 hours. Blood sugars have been running high for which Levemir 10 units daily added. Patient states that he is not feeling good today. He is not eating or drinking very much. He does have Glucerna. He states he has no appetite. 09/23: Patient sitting up in bed is feeling better today he denies any chest pain , is less short of breath, he continues to have Grullon catheter in place, we will postpone his discharge until Tuesday due to his acute kidney injury. 09/24: Total: Patient wanted to get up from bed, however he is recently , otherwise is comfortable, patient pulled out th midline last night, this would be reinserted for new midline and ordered for Tuesday, completed IV antibiotics daptomycin for MRSA bacteremia until October 02 by infectious disease, creatinine remains to be elevated at 4.7, and admitting creatinine of 2.5. With catheter draining clear, Grullon catheter remaining clear urine nephrology following., 09/25: Patient is comfortable today, however creatinine reached be high at 4.5 bun at 99. hyperkalemia 5.5 kayexelate 15 mg x 1 dose weekly Solu-Medrol and discontinue IV, oral prednisone 40the morning, midline IV access anticipated to be performed in the morning 09/26 creatinine remains higher with worsening of BUN, nephrology discussed hemodialysis, patient cannot make his own well-informed medical decision, KAIA is the youngest son, and I've spoken to him to make the final decision to assist with the father, and family members as well. The patient himself when inquired, does not want to be on dialysis, he wants his youngest son to assist, he would await family decision with KAIA next of kin [place] for final recommendation 09/27: Family undecided yet regarding renal replacement therapy, patient cannot fully understand the consequences and the indication for renal replacement therapy, patient states that if he could avoid it he would not go for dialysis however he also wants things that are for him.daughter at bedside, Chintan, updated regards to outcome,patient still remains severely azotemiaBUN of 105 creatinine 4.75 potassium 4.8 09/28: Patient and son wish to pursue hemodialysis. Dr. Cabello consult and patient will be transferred to ICU to do catheter placement and start dialysis. Dr. Tang to be updated. BUN is 104 and creatinine 4.41. Blood sugars are running in the 200s and 300s. Levemir dose increased. 09/29: Patient had dialysis catheter placement on the right from oral with Dr. Cabello and patient was transferred into the intensive care unit. He has been hemodynamically stable. Dr. Mcbride has ordered hemodialysis today and will be determined on a day-to-day basis. BUN is 106 and creatinine 4.1. Blood sugars remain elevated secondary to steroids. He is currently on prednisone 40 mg daily. Lantus was increased to 12 units yesterday. Cardiology has reduced the dose of Lopressor with parameters with dialysis. Patient will be transferred to the [facility] floor later today. Patient's mental status is alert and oriented today. Patient has been asking for items that on his diet and stating that he only has 6 months to live to his nurse. 09/30: Repeat BUN 79 and creatinine 3.17 after dialysis yesterday. Hemoglobin is 8.7. Awaiting determination from nephrology and patient will be re-dialyzed today and if he will need long-term at the custodial. At this time, we are anticipate discharge back to [facility] on Tuesday. Patient continued to be confused at baseline mental status, tolerating diet, urine output continued to be at baseline. He to 40 mL/h and his Grullon catheter bag, patient seems to be comfortable in no acute distress and denying pain. 10/01: Patient continued to be confused at baseline mental status, tolerating diet , urine output continued to be at baseline. He to 40 mL/h and his Grullon catheter bag, patient seems to be comfortable in no acute distress and denying pain 10/02: Patient continued to be confused at baseline mental status, tolerating diet, urine output continued to be at baseline around 40 mL/h and his Grullon catheter bag, patient seems to be comfortable in no acute distress and denying pain. 10/03: Patient was given Lasix 100 mg IV yesterday. He is scheduled for hemodialysis of 3 L today. Awaiting determination from nephrology whether patient will be long-term dialysis and a chair time for him prior to discharge back to [facility] [place]. Grullon catheter remains in place. No new complaints. 10/04: Nephrology is planning to continue hemodialysis and a later date this may be discontinued as an outpatient. Sodium bicarb has been discontinued. Dr. Louis has discontinued daptomycin as patient has completed his course of IV antibiotics for MRSA bacteremia. We are currently awaiting authorization from his insurance for dialysis and also for subacute rehab. Patient was given Lasix 40 mg this morning. Repeat chest x-ray ordered. 10/05: Patient will be placed on Lasix 40 mg orally every day. He is tentatively set up for hemodialysis on Tuesday. Dr. Tang will look at lab work in the morning and determine if patient will need ongoing hemodialysis. If he does not, patient will be discharged tomorrow morning. Otherwise, patient will need permanent dialysis catheter placed by Dr. Cabello. If this is necessary, patient most likely will have dialysis catheter placed on Tuesday and plan for discharge to ECF on Tuesday following dialysis. 10/06: Repeat labs showed BUN of 69 creatinine 2.69, hemoglobin 8.6 and white count 11.3. Electrolytes are within normal limits. Capillary blood glucose running anywhere between 158 and 300. We expect the patient's blood sugars will drop significantly since he is off prednisone. Levemir was discontinued yesterday and he is on NovoLog scale only. Patient will need to continue on hemodialysis. Dr. Cabello will put in a dialysis catheter either on Tuesday or Tuesday. This may delay are discharged to custodial until Tuesday. Patient's son is working on POA which needs to be in place for hemodialysis. 10/07: She was seated up in a chair for a brief period this morning. His repeat BUN is 49 and creatinine 2.02. He remains with Grullon catheter in place. Dr. Cabello will perform permacath placement today or tomorrow and the groin catheter will be discontinued. Patient will then be on hemodialysis Tuesday, , Tuesday schedule. We anticipate discharge to ECF on Tuesday. There is a pending guardianship issue as son is to follow-up with paperwork to complete this. Social work is following 10/08: Dr. Cabello has placed a permanent right jugular dialysis catheter and removed his temporary catheter. BUN 15 creatinine 2.26. At this time we are planning for discharge on Tuesday back to his ECF. 10/09: Patient underwent hemodialysis yesterday. BUN is 34 and creatinine 1.80. Patient is still planned for discharge on Tuesday to rehab. No new complaints from the patient. He continues to have chest congestion and chest physiotherapy has been ordered. 10/10: Last evening, patient refused to take his medications. He states he just did not feel like taking them. Sodium is 136, BUN 39 creatinine 2.07. His son has failed to follow up with child support case officer and social worker delinquency prevention to resolve guardianship issue in order for him to be discharged. Patient has been resumed back on daptomycin by Dr. Louis. Repeat urine culture is showing gram-negative bacilli. Patient has had his Grullon catheter changed. 10/11:10/11: Repeat urine culture is showing enterococcus and MRCP. Grullon catheter was already changed but thought to be colonization by Dr. Louis and antibiotics have been discontinued as patient has not had fever or elevated white count. Repeat urine culture on October 07 is showing Serratia marcescens susceptible to only amikacin and tigecycline. Patient is continued on Aranesp and oral Lasix daily. He is to have hemodialysis today and plan for discharge to [facility] today in stable condition. Son has provided power of project engineering manager papers to dialysis Center. --- Patient was not discharged today as son had not completed a guardianship for the patient. Please see child support case officer/ social worker delinquency prevention documentation. Objective - Vital Signs Vital signs: Vital Signs Temp 97.9 F 10/11/17 06:01 Pulse 78 10/11/17 07:20 Resp 14 10/11/17 07:20 BP 137/75 10/11/17 06:01 Pulse Ox 97 10/11/17 06:57 Intake & Output 10/10/17 10/11/17 10/11/17 18:59 06:59 18:59 Intake Total 390 Output Total 1603 700 Balance -1603 -310 Weight 69 kg 67.5 kg Intake: IV 30 0.9 30 Oral 360 Output: Urine 1600 700 Uretheral (Grullon) 700 Stool 3 Other: Voiding Method Indwelling Catheter Indwelling Catheter Indwelling Catheter # Voids 0 - Exam General appearance: Present: cooperative, disheveled, no acute distress. Absent : average body habitus, mild distress, morbidly obese, obese, severe distress, thin - EENT Eyes: Present: normal appearance. Absent: abnormal pupil, anicteric sclerae, disc margins sharp, edentulous, EOMI, PERRLA, fundus normal, photophobia, dentition normal, poor dentition, ptosis, scleral icterus ENT: Present: hard of hearing, pharyngeal erythema. Absent: hearing grossly normal, NA/AT, normal oropharynx, other, thrush, tonsillar exudates, tonsillar swelling Ears: bilateral: normal - Neck Neck: Present: normal ROM. Absent: lymphadenopathy, other, rigidity, stridor, thyromegaly Carotids: bilateral: upstroke normal, upstroke delayed Thyroid: bilateral: normal size - Respiratory Respiratory: bilateral: CTA, diminished, dullness, rales, rhonchi - Cardiovascular Rhythm: regular Heart sounds: normal: S1, S2 Abnormal Heart Sounds: Present: systolic murmur, S3 Gallop - Gastrointestinal General gastrointestinal: Present: decreased bowel sounds, distended, normal bowel sounds, soft. Absent: absent bowel sounds, hepatomegaly, hyperactive bowel sounds, organomegaly, rigid, scaphoid, splenomegaly, tenderness, umbilical hernia, ventral hernia - Integumentary Integumentary: Present: normal, pale, rash. Absent: calor, cellulitis, cyanotic , decreased turgor, flushed, jaundiced, normal turgor, ulcer - Neurologic Neurologic: Present: CNII-XII intact - Musculoskeletal Musculoskeletal: Present: generalized weakness, strength equal bilaterally. Absent: gait normal, right sided weakness, left sided weakness - Psychiatric Psychiatric: A&O x's 2, no appropriate affect, no intact judgment & insight - Labs CBC & Chem 7: 10/11/17 07:35 10/10/17 07:02 Labs: Abnormal Lab Results - Last 24 Hours (Table) 10/10/17 10/10/17 10/10/17 Range/Units 11:42 17:28 20:12 WBC (3.8-10.6) k/uL RBC (4.30-5.90) m/uL Hgb (13.0-17.5) gm/dL Hct (39.0-53.0) % RDW (11.5-15.5) % POC Glucose (mg/dL) 156 H 143 H 170 H (75-99) mg/dL 10/11/17 10/11/17 Range/Units 07:01 07:35 WBC 12.5 H (3.8-10.6) k/uL RBC 2.59 L (4.30-5.90) m/uL Hgb 7.4 L (13.0-17.5) gm/dL Hct 23.9 L (39.0-53.0) % RDW 16.6 H (11.5-15.5) % POC Glucose (mg/dL) 214 H (75-99) mg/dL Microbiology - Last 24 Hours (Table) 10/07/17 17:45 Urine Culture - Final Urine,Catheterized Serratia marcescens Assessment and Plan Plan: 1. Acute hypoxic respiratory failure secondary to bilateral pleural effusions with bibasilar atelectasis due to acute on chronic diastolic heart failure. Pulmonary medicine has ruled out pneumonia. Lasix 40 mg orally daily. Chest physiotherapy ordered 2. Hypoxia encephalopathy most likely secondary to low pulse ox. Patient's mentation improved with oxygen therapy. Continue as in #1., Has improved from the last 48 hours. 3. Pneumonia ruled out by pulmonary medicine. 4. Acute kidney injury with CKD stage III with recent acute failure secondary to ATN secondary to sepsis. Consult with Dr. Mcbride is appreciated. Patient on dialysis treatment. Permanent dialysis catheter placed placed by Dr. Cabello 5. Arrhythmia history with prior Nonsustained ventricular tachycardia on 2015 H and was seen by cardiology echocardiogramJuly 2016 showed atrial fibrillation with small pericardial effusion noted ejection fraction 45-50% inferolateral hypokinesis with palpation of LA size over 40. 6. Grullon catheter associated MRSA and enterococcus urinary tract infection and bacteremia with sepsis Dr. Louis recommends daptomycin for second course. 7. CAD post CABG. continue aspirin 81 mg orally once every day, Lipitor 40 mg daily, Lopressor. 8. Diabetes mellitus type II with hyperglycemia secondary to steroids: Levemir has been added. Continue with NovoLog sliding scale. Patient has been off scheduled insulin due to hypoglycemia. 9. Hypertensive cardiovascular disease. Continue amlodipine 5 mg twice daily, hydralazine 100 mg 3 times daily, lisinopril 5 mg daily, lopressor 12.5 mg twice daily. 10. Hyperlipidemia: Continue statin. 11. Chronic A. fib. Patient is no longer on Coumadin. This may be related to risk of falls. 12. Recurrent depression: Continue Paxil. 13. Seizure history: Has been on Keppra 750 g twice a day with no new seizure activity. 14. Urinary retention with BPH: Patient has chronic Grullon catheter. Continue Flomax. 15. Severe GERD: Will add Protonix 40 mg daily 16. Severe protein calorie malnutrition due to lack of oral intake. Protein supplement. 17. Chronic low back pain. No change. Patient is off [place] Discharge plan: [facility] [place] on Tuesday Impression and plan of care have been directed as dictated by the signing physician. Carly Greene nurse practitioner acting as scribe for signing physician.
[2017-10-11 17:28] LABS: Glucose,Whole Blood 236 mg/dL (75-99)
[2017-10-11 19:55] LABS: Glucose,Whole Blood 195 mg/dL (75-99)
[2017-10-11] MEDS: MONTELUKAST 10 MG TAB PO SCH (20:46)
[2017-10-11] MEDS: MULTIVITAMINS, THERA 1 EACH TAB PO SCH (20:46)
--- NOTE | 2017-10-11 21:38 | PN ---
PROGRESS NOTE DATE OF SERVICE: 10/11/2017 REASON FOR FOLLOWUP: MRSA urinary tract infection and bacteremia. INTERVAL HISTORY: The patient is afebrile. He is currently breathing comfortably. Denies having any chest pain or shortness of breath or cough. No abdominal pain or any diarrhea reported. EXAMINATION: Blood pressure 147/66, pulse of 75, temperature 98.7. He is 98% on room air. General description is an elderly male lying in bed in no distress. RESPIRATORY SYSTEM: Unlabored breathing. Clear to auscultation anteriorly. HEART: S1, S2. Regular rate and rhythm. ABDOMEN: Soft, nontender. LABS: Hemoglobin 7.4, white count 14.5. DIAGNOSTIC IMPRESSION AND PLAN: Patient with methicillin-resistant Staphylococcus aureus bacteremia secondary to the urinary source, adequately treated. Blood culture 5 out of 6 negative. Urine culture 5 out of 6 negative. Urine culture 6 initially showing Serratia marcescens. This could be more likely colonizer versus contamination, as the patient is currently not running a fever or significantly elevated white count. Will continue to monitor the patient closely off antibiotic therapy. Continue supportive care. MMODL / IJN: [id number] /
[2017-10-12 07:19] LABS: Glucose,Whole Blood 170 mg/dL (75-99)
[2017-10-12] MEDS: IPRATROPIUM-ALBUTEROL 3 ML NEB INHALATION SCH ×4 (07:55→19:17)
[2017-10-12] MEDS: BUDESONIDE 1 MG/2 ML NEBU INHALATION SCH ×2 (07:56→19:18)
[2017-10-12] MEDS: FORMOTEROL FUMARATE 20 MCG/2 ML NEBU INHALATION SCH ×2 (07:56→19:30)
[2017-10-12] MEDS: HEPARIN SODIUM,PORCINE 5,000 UNIT/ML 1 ML VIAL SQ SCH ×2 (08:48→15:51)
[2017-10-12] MEDS: INSULIN ASPART 100 UNIT/ML 1 ML 10 ML VIAL SQ SCH ×2 (08:51→12:21)
[2017-10-12] MEDS: hydrALAZINE HCL 25 MG TAB PO SCH ×3 (08:55→15:51)
[2017-10-12] MEDS: PANTOPRAZOLE 40 MG TABLET PO SCH (08:55)
[2017-10-12] MEDS: FUROSEMIDE 40 MG TAB PO SCH ×2 (08:57→15:51)
[2017-10-12] MEDS: ISOSORBIDE MONONITRATE ER 30 MG TAB.ER.24H PO SCH (08:57)
[2017-10-12] MEDS: METOPROLOL TARTRATE 12.5 MG TAB PO SCH (08:59)
[2017-10-12] MEDS: PARoxetine 10 MG TAB PO SCH (09:01)
[2017-10-12 09:25] VITALS: RESP 20
[2017-10-12] MEDS: TAMSULOSIN 0.4 MG CAP.ER.24H PO SCH (10:29)
[2017-10-12] MEDS: ACETAMINOPHEN TAB 500 MG TAB PO PRN (10:37)
[2017-10-12] MEDS: TRIAMCINOLONE 0.1% CREAM 80 GM TUBE TOPICAL SCH (10:46)
[2017-10-12] MEDS: NYSTATIN 100,000UNIT/GM CREAM 30 GM TUBE TOPICAL SCH (10:46)
--- NOTE | 2017-10-12 11:02 | P.PN ---
Progress Note - Text Progress Note Date: 10/12/17 Mr. Boom Hdez is a 71-year-old male patient followed by our service for a long period of time with frequent hospitalizations. His overall mental status has declined significantly over the past several months and he is not capable of making sound judgment regarding his medical decisions. It is felt at this time that he requires a guardian to make medical decisions for him.
[2017-10-12 11:37] LABS: Glucose,Whole Blood 220 mg/dL (75-99)
[2017-10-12] MEDS: SODIUM CHLORIDE 0.9% 1,000 ML IV SCH (12:25)
--- NOTE | 2017-10-12 14:12 | PN ---
PROGRESS NOTE Patient is seen for followup for acute kidney injury. He currently remains hemodialysis dependent. Patient is currently awake. He has not been able to make his own decisions. The patient seems confused at times. PHYSICAL EXAMINATION: Blood pressure is 167/79, heart rate 79 per minute, heart rate 78 per minute. He is afebrile. Examination of the heart: S1, S2. Examination lungs: Bilateral breath sounds are heard. Abdomen is soft, nontender. Exam of lower extremities shows no evidence of edema. SPANISH INTERPRETER/TRANSLATOR exam is grossly intact. Patient moving all 4 extremities. LABS: Hemoglobin 7.4 from yesterday. We do not have any labs from today. ASSESSMENT: 1. Acute kidney injury, currently hemodialysis dependent. Will repeat labs in a.m. 2. Anemia with no active bleeding noted maintained on Aranesp. The patient has received IV iron previously. 3. Hypertension, currently well controlled. 4. Fluid overload, now improved. 5. Encephalopathy. Patient has not been able to make his own decisions. PLAN: Hemodialysis in the a.m. Check labs. MMODL / IJN: [id number] /
--- NOTE | 2017-10-12 14:27 | PN ---
PROGRESS NOTE DATE OF SERVICE: 10/12/2017. REASON FOR FOLLOWUP: Urinary tract infection and bacteremia. INTERVAL HISTORY: The patient is afebrile. He seems to be more awake and alert today, breathing comfortably. No chest pain or any cough. No abdominal pain and no diarrhea reported. EXAMINATION: Blood pressure 157/79, pulse of 69, temperature 98. He is 100% 2 L nasal cannula. General description is an elderly male lying in bed in no distress. RESPIRATORY SYSTEM: Unlabored breathing. Clear to auscultation anteriorly. HEART: S1, S2. Regular rate and rhythm. ABDOMEN: Soft, no tenderness. LABS: No new labs have been obtained today. DIAGNOSTIC IMPRESSION AND PLAN: Patient with MRSA bacteremia secondary to the urinary source that has been adequately treated with a follow up blood culture and urine culture negative. He did have a last urine culture showing Serratia marcescens, more likely Grullon colonization. The patient is currently not running any fever and did not have elevated white count. Hence, we will continue to monitor the patient off antibiotic therapy. Continue supportive care. MMODL / IJN: [id number] /
[2017-10-12 15:22] VITALS: BP 132/67; TEMP 96.8
[2017-10-12 15:45] LABS: Calcium 7.1 mg/dL (8.4-10.2); Potassium 3.7 mmol/L (3.5-5.1)
[2017-10-12 19:31] VITALS: PULSE 78
--- NOTE | 2017-10-13 14:46 | PN ---
PROGRESS NOTE ADDENDUM: DATE OF SERVICE: 10/12/2017. Patient is stable for discharge from Nephrology standpoint and he should be okay without dialysis tomorrow and is stable for dialysis as outpatient scheduled on his routine scheduled and chair time that has been provided at the senior's unit. The patient will continue with his diuretics. His urine output has improved. His creatinine is not significantly elevated. MMODL / MARÍA ELENAN: [id number] /
== END 2017-10-12 19:40 | DRG 698 ==
LOC: EC 19:02 → 6SEL 20:37 → 4MS4W 09-24 17:03 → 6ICU 09-28 19:57 → 5MS5E 09-30 00:01
PROVIDERS: ADMIT Internal Medicine Geriatric Medicine; ATTEND Internal Medicine Geriatric Medicine
PROC: 06HM33Z Insertion of Infusion Device into Right Femoral Vein, Percutaneous Approach (ICD-10-PCS; principal; 2017-09-29)
PROC: 5A1D70Z Performance of Urinary Filtration, Intermittent, Less than 6 Hours Per Day (ICD-10-PCS; 2017-09-29)
PROC: 02HV33Z Insertion of Infusion Device into Superior Vena Cava, Percutaneous Approach (ICD-10-PCS; 2017-10-07 15:38)
PROC: 06PYX3Z Removal of Infusion Device from Lower Vein, External Approach (ICD-10-PCS; 2017-10-07 15:38)
DX: T83.511A Infection and inflammatory reaction due to indwelling urethral catheter, initial encounter (principal); A41.02 Sepsis due to Methicillin resistant Staphylococcus aureus; E43 Unspecified severe protein-calorie malnutrition; I50.43 Acute on chronic combined systolic (congestive) and diastolic (congestive) heart failure; J96.21 Acute and chronic respiratory failure with hypoxia; N17.0 Acute kidney failure with tubular necrosis; G93.41 Metabolic encephalopathy; F33.9 Major depressive disorder, recurrent, unspecified; G93.1 Anoxic brain damage, not elsewhere classified; I13.0 Hypertensive heart and chronic kidney disease with heart failure and stage 1 through stage 4 chronic kidney disease, or unspecified chronic kidney disease; I42.9 Cardiomyopathy, unspecified; I47.2 Ventricular tachycardia; J98.11 Atelectasis; N13.30 Unspecified hydronephrosis; R64 Cachexia; Y84.6 Urinary catheterization as the cause of abnormal reaction of the patient, or of later complication, without mention of misadventure at the time of the procedure; B95.2 Enterococcus as the cause of diseases classified elsewhere; D63.1 Anemia in chronic kidney disease; E11.22 Type 2 diabetes mellitus with diabetic chronic kidney disease; E11.649 Type 2 diabetes mellitus with hypoglycemia without coma; E11.65 Type 2 diabetes mellitus with hyperglycemia; E78.5 Hyperlipidemia, unspecified; E83.42 Hypomagnesemia; E86.9 Volume depletion, unspecified; E87.5 Hyperkalemia; F03.90 Unspecified dementia, unspecified severity, without behavioral disturbance, psychotic disturbance, mood disturbance, and anxiety; F17.200 Nicotine dependence, unspecified, uncomplicated; G40.909 Epilepsy, unspecified, not intractable, without status epilepticus; G47.33 Obstructive sleep apnea (adult) (pediatric); G89.29 Other chronic pain; I25.10 Atherosclerotic heart disease of native coronary artery without angina pectoris; I25.2 Old myocardial infarction; I48.2 Chronic atrial fibrillation; J44.9 Chronic obstructive pulmonary disease, unspecified; K21.9 Gastro-esophageal reflux disease without esophagitis; M19.90 Unspecified osteoarthritis, unspecified site; N18.3 Chronic kidney disease, stage 3 (moderate); N39.0 Urinary tract infection, site not specified; N40.1 Benign prostatic hyperplasia with lower urinary tract symptoms; R33.8 Other retention of urine; T38.0X5A Adverse effect of glucocorticoids and synthetic analogues, initial encounter; Z16.24 Resistance to multiple antibiotics; Z79.01 Long term (current) use of anticoagulants; Z79.4 Long term (current) use of insulin; Z79.82 Long term (current) use of aspirin; Z79.899 Other long term (current) drug therapy; Z82.49 Family history of ischemic heart disease and other diseases of the circulatory system; Z86.73 Personal history of transient ischemic attack (TIA), and cerebral infarction without residual deficits; Z87.442 Personal history of urinary calculi; Z91.19 Patient's noncompliance with other medical treatment and regimen; Z91.81 History of falling; Z95.1 Presence of aortocoronary bypass graft; Z99.81 Dependence on supplemental oxygen; Z88.7 Allergy status to serum and vaccine; Z88.8 Allergy status to other drugs, medicaments and biological substances
CPT/HCPCS: 00000; 36415; 36558; 36569; 71045; 71046; 76770; 76937; 77001; 80048; 80053; 81001; 82140; 82550; 82553; 82728; 83036; 83540; 83550; 83605; 83690; 83735; 83880; 84100; 84132; 84484; 85025; 85027; 85610; 85730; 86706; 87040; 87077; 87086; 87186; 87340; 90935; 93005; 93308; 94640; 94667; 94760; 96361; 96374; 96375; 99285